=== PATIENT | female | born 1970 | race Caucasian/White ===

== ENCOUNTER 2016-05-06 00:28 | Inpatient (IN) | payer OTHER ==
[2016-05-06] VITALS (16 sets, daily range): BP systolic 130–175; BP diastolic 59–109; PULSE 94–135; RESP 20–26; TEMP 97–99; O2SAT 91–100
[~2016-05-06] VITALS: Ht 154.9 cm; Wt 64.7 kg
[~2016-05-06 00:28] MED LIST: ALBU8I INH; CHLO25 PO; CLON.1 PO; FERR325T PO; FOLI1 PO; FURO20 PO; LACT20SO4 PO; LEVE500 PO; LEVO.075 PO; OXYC5 PO; PROT40TA PO; RIFA550 PO; SERT-132 PO; SPIR25 PO; THERM PO; [UNRECOGNIZED DRUG - CODE] PO
[2016-05-06] MEDS ORDERED: OCTREOTIDE INJ 50 MCG/ML AMP IVP ONE (03:30)
[2016-05-06] MEDS ORDERED: MORPHINE SULFATE 4 MG/ML INJ IV PUSH ONE (03:30)
[2016-05-06] MEDS ORDERED: PANTOPRAZOLE INJ 80 MG in SODIUM CHLORIDE 0.9% INJ 35 ML IV ONE (03:30)
[2016-05-06] MEDS ORDERED: LORazepam 2 MG/ML VIAL IV PUSH ONE (03:30)
[2016-05-06] MEDS ORDERED: ONDANSETRON HCL 4 MG/2 ML VIAL IVP ONE (03:30)
[2016-05-06] MEDS ORDERED: SODIUM CHLORIDE 0.9% FLUSH 5 ML FLUSH IVF PRN (03:30)
[2016-05-06] MEDS ORDERED: PANTOPRAZOLE INJ 80 MG in SODIUM CHLORIDE 0.9% INJ 100 ML IV SCH (03:30)
[2016-05-06 04:03] LABS: AUTOMATED NEUTROPHIL # 6.7 TH/MM3 (1.8-7.7); BASOPHIL % 0.3 % (0.0-2.0); EOSINOPHIL % 0.1 % (0.0-4.0); HEMO FLAGS DIFF FINAL; LYMPH % 15.1 % (9.0-44.0); LYMPHOCYTE # 1.4 TH/MM3 (1.0-4.8); MEAN CELL VOLUME 94.3 FL (80.0-100.0); MEAN CORPUSCULAR HEMOGLOBIN 32.3 PG (27.0-34.0); MEAN CORPUSCULAR HGB CONC 34.3 % (32.0-36.0); NEUT % 70.5 % (16.0-70.0); PLATELET COUNT 236 TH/MM3 (150-450); RED BLOOD COUNT 3.61 MIL/MM3 (4.00-5.30); RED CELL DISTRIBUTION WIDTH 14.9 % (11.6-17.2); WHITE BLOOD COUNT 9.4 TH/MM3 (4.0-11.0)
[2016-05-06 04:13] LABS: APTT (PATIENT) 26.1 SEC (24.3-30.1); INTERNATIONAL NORMALIZED RATIO 1.2 RATIO; PROTHROMBIN TIME - PATIENT 13.3 SEC (9.8-11.6)
[2016-05-06 04:22] LABS: ALT (GPT) 40 U/L (10-53); ANION GAP 9 MEQ/L (5-15); AST (GOT) 65 U/L (15-37); BICARBONATE 27.7 MEQ/L (21.0-32.0); BLOOD UREA NITROGEN 8 MG/DL (7-18); CHLORIDE 105 MEQ/L (98-107); GLOMERULAR FILTRATION RATE 78 ML/MIN (>89); POTASSIUM 3.5 MEQ/L (3.5-5.1); SODIUM (NA) 142 MEQ/L (136-145)
[2016-05-06 04:24] LABS: ALKALINE PHOSPHATASE 237 U/L (45-117); TOTAL BILIRUBIN ADULT 1.8 MG/DL (0.2-1.0)
[2016-05-06] MEDS ORDERED: IOHEXOL 350 MG/ML 10 ML VIAL (for RAD DIAG) IV ONE (04:43)
--- NOTE | 2016-05-06 05:14 | RADRPT ---
EXAM DATE/TIME: 05/06/2016 04:40 [place] COMPARISON: CT ABDOMEN & PELVIS W/O CONTRAST, January 05, 2016, 17:51. INDICATIONS : Hematemesis IV CONTRAST: 97 cc Omnipaque 350 (iohexol) IV ORAL CONTRAST: No oral contrast ingested. RADIATION DOSE: 8.39 CTDIvol (mGy) MEDICAL HISTORY : Gastroesophageal reflux disease. Chronic obstructive pulmonary disease. Pancreatitis.Esophageal varic es. Hypertension. SURGICAL HISTORY : Tubal ligation. ENCOUNTER: Initial ACUITY: 1 day PAIN SCALE: 5/10 LOCATION: Abdomen. TECHNIQUE: Volumetric scanning of the abdomen and pelvis was performed. Using automated exposure control and ad justment of the mA and/or kV according to patient size, radiation dose was kept as low as reasonably achievable to obtain optimal diagnostic quality images. FINDINGS: LOWER LUNGS: The visualized lower lungs are clear. LIVER: Cirrhotic liver without lesion. There is no dilation of the biliary tree. Small calcified gallstone. SPLEEN: Normal size without lesion. PANCREAS: Within normal limits. KIDNEYS: Normal in size and shape. There is no mass, stone or hydronephrosis. ADRENAL GLANDS: Within normal limits. VASCULAR: There is no aortic aneurysm. BOWEL/MESENTERY: Wall thickening within the distal duodenum and proximal jejunum. There is also some mild wall thicken ing of the cecum and ascending colon. There is no free intraperitoneal air or fluid. ABDOMINAL WALL: Within normal limits. RETROPERITONEUM: There is no lymphadenopathy. BLADDER: No wall thickening or mass. REPRODUCTIVE: Within normal limits. INGUINAL: There is no lymphadenopathy or hernia. MUSCULOSKELETAL: Within normal limits for patient age. CONCLUSION: 1. Cirrhotic liver with cholelithiasis. 2. Wall thickening of distal duodenum and proximal jejunum, could be enteritis. 3. Mild nonspecific wall thickening of the cecum and ascending colon. Carlito Trejo MD on May 06, 2016 at 5:08 Board Certified Radiologist. This report was verified electronically.
[2016-05-06] MEDS ORDERED: CIPROFLOXACIN 400 MG PREMIX 200 ML IV ONE (05:30)
--- NOTE | 2016-05-06 05:36 | PD ---
HPI Chief Complaint: GI Complaint Time Seen by Provider: 03:08 Travel History International Travel<30 days: No Contact w/Intl Traveler<30days: No Traveled to known affect area: No History of Present Illness HPI Patient is a 45-year-old female with history of cirrhosis and bleeding varices, who comes in complaining of vomiting blood. She says it started earlier today. She complains of pain across her upper abdomen. She was here in January for the same thing. She denies fever or chills. She reports nausea, no diarrhea. She denies chest pain or shortness of breath. PFSH Past Medical History Hx Anticoagulant Therapy: Yes (81MG ASA DAILY) Anemia: Yes Arthritis: Yes Asthma: Yes Autoimmune Disease: No Blood Disorders: No Bipolar Disorder: Yes Anxiety: Yes Depression: No Heart Rhythm Problems: Yes (QUESTIONABLE MURMUR) Cancer: No Cardiovascular Problems: Yes High Cholesterol: No Chemotherapy: No Chest Pain: No Congestive Heart Failure: No Cirrhosis: Yes COPD: Yes Cerebrovascular Accident: No Diabetes: Yes Patient Takes Glucophage: No Diminished Hearing: No Diverticulitis: Yes Endocrine: Yes Gastrointestinal Disorders: Yes ("PROBLEMS WITH LIVER", ESOPHAGEAL VARICIES) GERD: Yes Genitourinary: No Headaches: Yes Hepatitis: Yes (A&C) Hiatal Hernia: Yes Hypertension: Yes Immune Disorder: No Implanted Vascular Access Dvce: No Kidney Stones: No Musculoskeletal: Yes Neurologic: No Psychiatric: Yes (BIPOLAR) Reproductive: No Respiratory: Yes Integumentary: Yes Immunizations Current: No Migraines: No Pancreatitis: Yes Radiation Therapy: No Renal Failure: No Seizures: Yes Sickle Cell Disease: No Sleep Apnea: No Thyroid Disease: Yes Ulcer: Yes Tetanus Vaccination: < 5 Years Influenza Vaccination: Yes ?: Not Menopausal: Yes : 4 Para: 3 : 1 Tubal Ligation: Yes Past Surgical History Abdominal Surgery: Yes (ESOPHAGEAL VARICES WITH BANDING) AICD: No Arteriovenous Shunt: No Cardiac Surgery: No Ear Surgery: No Endocrine Surgery: No Eye Surgery: No Genitourinary Surgery: No Gynecologic Surgery: Yes (CERVICAL FREEZE) Insulin Pump: No Joint Replacement: No Neurologic Surgery: No Oral Surgery: Yes (ALL TEETH REMOVED) Pacemaker: No Thoracic Surgery: No Other Surgery: Yes (ANTHROSCOPIC RIGHT ANKLE,FRACTURE RIGHT LEG,BONE GRAPH.) Social History Alcohol Use: Yes (DAILY) Tobacco Use: Yes (1/2 ppk ) Substance Use: Yes (COCAINE, METH PER HX) Allergies-Medications (Allergen,Severity, Reaction): Coded Allergies: *MDRO Multi-Drug Resistant Organism (Verified Adverse Reaction, Unknown, ) 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) Reported Meds & Prescriptions Reported Meds & Active Scripts Active Active Prescriptions or Reported Medications Unobtainable Review of Systems Except as stated in HPI: all other systems reviewed are Neg General / Constitutional: No: Fever, Chills Eyes: No: Blurred Vision HENT: Positive: Lightheadedness, No: Headaches Cardiovascular: No: Chest Pain or Discomfort Respiratory: No: Shortness of Breath Gastrointestinal: Positive: Nausea, Vomiting, Abdominal Pain, Hematemesis Skin: Positive Lesions Neurologic: Positive: Weakness, Dizziness Physical Exam Narrative GENERAL: Awake and alert in no acute distress. Tremulous, fasciculations of the tongue. SKIN: Warm and dry. Multiple scabs over most of her body. HEAD: Atraumatic. Normocephalic. EYES: Pupils equal and round. No scleral icterus. ENT: Mucous membranes pink and moist. NECK: Trachea midline. No JVD. CARDIOVASCULAR: Regular rate and rhythm. No murmur appreciated. RESPIRATORY: No accessory muscle use. Clear to auscultation. Breath sounds equal bilaterally. GASTROINTESTINAL: Abdomen soft, nondistended. Diffusely tender to palpation, worse in the upper abdomen. No rebound or guarding. MUSCULOSKELETAL: No obvious deformities. No clubbing. No cyanosis. No edema. NEUROLOGICAL: Awake and alert. No obvious cranial nerve deficits. Motor grossly within normal limits. Normal speech. PSYCHIATRIC: Appropriate mood and affect; insight and judgment normal. Data Data Last Documented VS Vital Signs Date Time Temp Pulse Resp B/P Pulse Ox O2 Delivery O2 Flow Rate FiO2 05/06/16 04:21 100 20 168/72 98 Room Air 05/06/16 00:33 98.1 Orders Complete Blood Count With Diff (05/06/16 03:18) Comprehensive Metabolic Panel (05/06/16 03:18) Lipase (05/06/16 03:18) Prothrombin Time / Inr (Pt) (05/06/16 03:18) Act Partial Throm Time (Ptt) (05/06/16 03:18) Urinalysis - C+S If Indicated (05/06/16 03:18) Ua Includes Microscopic (05/06/16 03:18) Ct Abd/Pel W Iv Contrast(Rout) (05/06/16 03:18) Iv Access Insert/Monitor (05/06/16 03:18) Ecg Monitoring (05/06/16 03:18) Oximetry (05/06/16 03:18) Morphine Inj (Morphine Inj) (05/06/16 03:30) Ondansetron Inj (Zofran Inj) (05/06/16 03:30) Sodium Chloride 0.9% Flush (Ns Flush) (05/06/16 03:30) Ed Urine Pregnancytest Poc (05/06/16 03:18) Octreotide Inj (Sandostatin Inj) (05/06/16 03:30) Pantoprazole Inj (Protonix Inj) (05/06/16 03:30) Pantoprazole Inj (Protonix Inj) (05/06/16 03:30) Alcohol (Ethanol) (05/06/16 03:18) Lorazepam Inj (Ativan Inj) (05/06/16 03:30) Type And Screen (05/06/16 03:22) Iohexol 350 Inj (Omnipaque 350 Inj) (05/06/16 04:43) Ciprofloxacin 400 Mg Premix (Cipro 400 M (05/06/16 05:30) Admit Order (Ed Use Only) (05/06/16 ) Consult Business Operations Specialist (05/06/16 ) Red Blood Cells (Rbc) (05/06/16 03:08) AGID (05/06/16 03:08) Labs Laboratory Tests Test 05/06/16 03:08 White Blood Count 9.4 TH/MM3 Red Blood Count 3.61 MIL/MM3 Hemoglobin 11.7 GM/DL Hematocrit 34.0 % Mean Corpuscular Volume 94.3 FL Mean Corpuscular Hemoglobin 32.3 PG Mean Corpuscular Hemoglobin 34.3 % Concent Red Cell Distribution Width 14.9 % Platelet Count 236 TH/MM3 Mean Platelet Volume 10.0 FL Neutrophils (%) (Auto) 70.5 % Lymphocytes (%) (Auto) 15.1 % Monocytes (%) (Auto) 14.0 % Eosinophils (%) (Auto) 0.1 % Basophils (%) (Auto) 0.3 % Neutrophils # (Auto) 6.7 TH/MM3 Lymphocytes # (Auto) 1.4 TH/MM3 Monocytes # (Auto) 1.3 TH/MM3 Eosinophils # (Auto) 0.0 TH/MM3 Basophils # (Auto) 0.0 TH/MM3 CBC Comment DIFF FINAL Differential Comment Prothrombin Time 13.3 SEC Prothromb Time International 1.2 RATIO Ratio Activated Partial 26.1 SEC Thromboplast Time Sodium Level 142 MEQ/L Potassium Level 3.5 MEQ/L Chloride Level 105 MEQ/L Carbon Dioxide Level 27.7 MEQ/L Anion Gap 9 MEQ/L Blood Urea Nitrogen 8 MG/DL Creatinine 0.79 MG/DL Estimat Glomerular Filtration 78 ML/MIN Rate Random Glucose 94 MG/DL Calcium Level 9.3 MG/DL Total Bilirubin 1.8 MG/DL Aspartate Amino Transf 65 U/L (AST/SGOT) Alanine Aminotransferase 40 U/L (ALT/SGPT) Alkaline Phosphatase 237 U/L Total Protein 9.1 GM/DL Albumin 3.2 GM/DL Lipase 147 U/L Ethyl Alcohol Level LESS THAN 3 MG/DL Blood Type O NEGATIVE Antibody Screen POSITIVE Antigen Identification K Antigen - NEGATIVE Crossmatch Leukocyte-Reduced Red Blood Cells Blood Bank Comment Antibody Identification Non-Specific Agglutinin Routine Panel Pathologist Interp [facility] Medical Decision Making Medical Screen Exam Complete: Yes Emergency Medical Condition: Yes Medical Record Reviewed: Yes Differential Diagnosis GI bleed versus bleeding very see versus pancreatitis versus cholecystitis versus colitis Narrative Course Patient is a 45-year-old female with history of cirrhosis and bleeding varices who comes in complaining of vomiting blood. Patient vomited blood twice while she was here. Exam shows tenderness to the abdomen. IV established, patient connected to the art history instructor. Labs sent. And given a dose of octreotide, Protonix, started on Protonix drip. Given Zofran. Given morphine for pain. Patient had no further episodes of vomiting after medications. Labs show hemoglobin of 11.7. Blood pressure and pulse remained stable. Patient given Ativan for possible alcohol withdrawal. Patient admitted for further management. GI, Dr. Willams consulted. Diagnosis Primary Impression: GI bleed Qualified Code: K92.0 - Gastrointestinal hemorrhage with hematemesis Additional Impressions: Abdominal pain Qualified Code: R10.84 - Generalized abdominal pain Alcohol withdrawal Qualified Code: F10.239 - Alcohol withdrawal, with unspecified complication Admitting Information Admitting Physician Requests: Admit Scripts Unable to Obtain Active Prescriptions or Reported Meds Marycarmen Junior MD May 06, 2016 05:36
[2016-05-06] MEDS: D5-1/2 NS + KCL 20 MEQ INJ 1,000 ML IV SCH ×2 (05:50→15:53)
[2016-05-06] MEDS ORDERED: LORazepam 2 MG TAB PO PRN (06:00)
[2016-05-06] MEDS ORDERED: FLUMAZENIL 0.5 MG/5 ML VIAL IV PUSH PRN (06:00)
[2016-05-06] MEDS ORDERED: MORPHINE SULFATE 4 MG/ML INJ IV PRN (06:00)
[2016-05-06] MEDS ORDERED: SODIUM CHLORIDE 0.9% FLUSH 5 ML FLUSH FLUSH PRN (06:00)
[2016-05-06] MEDS ORDERED: LORazepam 1 MG TAB PO PRN (06:00)
[2016-05-06] MEDS ORDERED: NALOXONE HCL 0.4 MG/ML AMP IV PRN (06:00)
--- NOTE | 2016-05-06 08:06 | PD.CONS ---
HPI History of Present Illness This is a 45 year old with a history of liver cirrhosis secondary to chronic hepatitis C and ongoing alcohol abuse and esophageal varices who came to the ER for evaluation of hematemesis and abdominal pain. The patient reports that she began having nausea and vomiting consisting of red blood yesterday. She also has associated diffuse abdominal pain that she describes as a constant dull ache that radiates to her back. This is not related to food. She has not found any alleviating factors. She reports that she has been having black tarry stools time to days. She has intermittent heartburn. She was taking Protonix for this at home but states she is out of it. She is not taking any ibuprofen or aleve. She has a history of liver cirrhosis secondary to chronic hepatitis C and ongoing alcohol abuse and continues to drink "a few drinks per day." She last underwent evaluation with an EGD on 02/02/16 ---> Medium esophageal varices distal esophagus, band ligation x 2 was performed of the varices. (Lori Man) PFSH Past Medical History Esophageal varices Liver cirrhosis secondary to chronic hepatitis c and ongoing ETOH abuse Seizure disorder Hypothyroidism Polysubstance abuse Past Surgical History EGD with band ligation Cryosurgery of cervix Ankle ORIF (Lori Man) Coded Allergies: *MDRO Multi-Drug Resistant Organism (Verified Adverse Reaction, Unknown, ) 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) Medications Allergies Coded Allergies Type Severity Reaction Last Updated Verified *MDRO Multi-Drug Resistant Organism Adverse Reaction Unknown 05/06/16 Yes Active Scripts Medications Dose Route/Sig Days Date Category Active Prescriptions or Reported Medications Unobtainable Rx Family History Mom had esophageal cancer, liver cancer, and pancreatic cancer. Father had liver cirrhosis (hx of ETOH abuse) Social History She smokes less than a pack of cigarettes per day States she takes a few shots of alcohol a day States she has not used any illicit drugs in 9 months (Lori Man ) Review of Systems Constitutional: COMPLAINS OF: Fatigue, DENIES: Fever, Weight loss, Chills, Change in appetite Respiratory: DENIES: Cough, Shortness of breath Cardiovascular: DENIES: Chest pain Gastrointestinal: COMPLAINS OF: Abdominal pain, Black stools, Nausea, Vomiting , Heartburn, Hematemesis, DENIES: Bloody stools, Constipation, Diarrhea Musculoskeletal: COMPLAINS OF: Back pain, DENIES: Joint pain Integumentary: COMPLAINS OF: Abnormal pigmentation, Pruritus, Rash Hematologic/lymphatic: DENIES: Bruising Neurologic: DENIES: Headache Psychiatric: DENIES: Confusion (Lori Man) GI Exam Vitals I&O Vital Signs Date Time Temp Pulse Resp B/P Pulse Ox O2 Delivery O2 Flow Rate FiO2 05/06/16 06:14 99 20 172/68 98 Room Air 05/06/16 06:09 98 21 05/06/16 04:21 100 20 168/72 98 Room Air 05/06/16 03:46 20 05/06/16 03:35 20 05/06/16 00:33 98.1 135 24 175/90 100 I/O 05/05/16 05/05/16 05/05/16 05/06/16 05/06/16 05/06/16 07:00 15:00 23:00 07:00 15:00 23:00 Intake Total 100 ml Balance 100 ml Intake IV Total 100 ml Imaging Last Impressions Abdomen/Pelvis CT 05/06/16 0318 Signed Impressions: Service Date/Time: April 04:40 - CONCLUSION: 1. Cirrhotic liver with cholelithiasis. 2. Wall thickening of distal duodenum and proximal jejunum, could be enteritis. 3. Mild nonspecific wall thickening of the cecum and ascending colon. Carlito Trejo MD Laboratory Test 05/06/16 03:08 White Blood Count 9.4 TH/MM3 Red Blood Count 3.61 MIL/MM3 Hemoglobin 11.7 GM/DL Hematocrit 34.0 % Mean Corpuscular Volume 94.3 FL Mean Corpuscular Hemoglobin 32.3 PG Mean Corpuscular Hemoglobin 34.3 % Concent Red Cell Distribution Width 14.9 % Platelet Count 236 TH/MM3 Mean Platelet Volume 10.0 FL Neutrophils (%) (Auto) 70.5 % Lymphocytes (%) (Auto) 15.1 % Monocytes (%) (Auto) 14.0 % Eosinophils (%) (Auto) 0.1 % Basophils (%) (Auto) 0.3 % Neutrophils # (Auto) 6.7 TH/MM3 Lymphocytes # (Auto) 1.4 TH/MM3 Monocytes # (Auto) 1.3 TH/MM3 Eosinophils # (Auto) 0.0 TH/MM3 Basophils # (Auto) 0.0 TH/MM3 CBC Comment DIFF FINAL Differential Comment Prothrombin Time 13.3 SEC Prothromb Time International 1.2 RATIO Ratio Activated Partial 26.1 SEC Thromboplast Time Sodium Level 142 MEQ/L Potassium Level 3.5 MEQ/L Chloride Level 105 MEQ/L Carbon Dioxide Level 27.7 MEQ/L Anion Gap 9 MEQ/L Blood Urea Nitrogen 8 MG/DL Creatinine 0.79 MG/DL Estimat Glomerular Filtration 78 ML/MIN Rate Random Glucose 94 MG/DL Calcium Level 9.3 MG/DL Total Bilirubin 1.8 MG/DL Aspartate Amino Transf 65 U/L (AST/SGOT) Alanine Aminotransferase 40 U/L (ALT/SGPT) Alkaline Phosphatase 237 U/L Total Protein 9.1 GM/DL Albumin 3.2 GM/DL Lipase 147 U/L Ethyl Alcohol Level LESS THAN 3 MG/DL Blood Type O NEGATIVE Physical Examination HEENT: Atraumatic; no jaundice. Has multiple scabs to face and extremities CHEST: Chest is clear to auscultation and percussion. CARDIAC: ST ABDOMEN: Soft, nondistended, diffuse abdominal tenderness; hepatosplenomegaly ; bowel sounds are present in all four quadrants. EXTREMITIES: No clubbing, cyanosis, or edema. SKIN: Multiple scabs to face and all extremities HR RECRUITER: No focal deficits; alert and oriented times three- picking at the air ( Lori Man) Assessment and Plan Plan ASSESSMENT: - Upper GI bleeding with hematemesis/melena. Patient reports she is vomiting red blood and passing black tarry stool. She has a history of liver cirrhosis And GI bleeding. She continues to drink alcohol. EGD on 02/02/16 ---> Medium esophageal varices distal esophagus, band ligation x 2 was performed of the varices. She is on an octreotide drip, Protonix drip. She is not currently having any active bleeding. Her H&H at this time is stable at 11.7/ 34.0 Will plan for an EGD today - N/V, abdominal pain. CT scan abdomen and pelvis with IV contrast (05/06/16) revealed cirrhotic liver with cholelithiasis, wall thickening of the distal duodenum and proximal jejunum, could be enteritis, mild nonspecific wall thickening of the cecum and ascending colon. - Abnormal imaging with wall thickening of the distal duodenum and proximal jejunum and wall thickening of cecum and ascending colon. EGD/Colon in am. - AMS, Hepatic encephalopathy. She is alert and oriented although she is speaking at invisible objects. Will check ammonia level - Liver cirrhosis secondary to chronic hepatitis C and ongoing alcohol abuse. Dx 3 years ago. Still drinks 2 shots per day. - Elevated LFTs secondary to cirrhosis and ETOH use. T. Bili 1.8, AST 65, ALT 40 , ALk Phosph 237. - HCV, chronic. Tx naive. Not a candidate for tx until she has been off ETOH abuse x 6 months. PLAN: - Plan for egd with possible band ligation/colonoscopy in am - Clear liquids - Obtain consents - Golytely prep - NPO after MN - Continue octreotide drip for now - Continue Protonix drip from now - Albumin level - Add Xifaxan - Add Lactulose - Supportive care - Further recommendations to follow based on results of above - Pt seen and examined by Dr. Willams and myself and this note is written on his behalf (Lori Man) Physician Comments Patient was seen and examined Agree with above Continue with current supportive care Monitor labs Plan for an EGD and a colonoscopy tomorrow (Sami Willams MD) Lori Man May 06, 2016 08:06 Sami Willams MD May 06, 2016 19:09
[2016-05-06] MEDS: OCTREOTIDE INJ 500 MCG in SODIUM CHLORID 0.9% 500 ML INJ 499.5 ML IV SCH (08:53)
[2016-05-06] MEDS: SODIUM CHLORIDE 0.9% FLUSH 5 ML FLUSH FLUSH SCH ×2 (08:55→19:45)
[2016-05-06] MEDS ORDERED: ONDANSETRON HCL 4 MG/2 ML VIAL IVP PRN (09:00)
[2016-05-06] MEDS: LACTULOSE SYRUP 20 GM/30 ML CUP PO SCH (09:30)
[2016-05-06] MEDS: LORazepam 2 MG/ML VIAL IV PUSH PRN (09:47)
[2016-05-06] MEDS ORDERED: CHLORHEXIDINE GLUCONATE 2 % 1 PACK (2 CLOTHS)(extra cloths) TOP PRN (12:30)
[2016-05-06] MEDS: cloNIDine HCL 0.1 MG TAB PO PRN ×2 (13:10→21:18)
[2016-05-06 13:46] LABS: HEMATOCRIT 31.5 % (35.0-46.0)
[2016-05-06 13:48] LABS: REVIEW FLAG FINAL
--- NOTE | 2016-05-06 14:20 | MH ---
cc: DHAVAL MCKEON MD DATE OF ADMISSION 05/06/2016 CHIEF COMPLAINT Abdominal pain HISTORY OF PRESENT ILLNESS This is a 45-year-old female with a past medical and surgical history significant for anemia, arthritis, asthma, chronic liver disease, massive ascites, end-stage renal disease, anxiety, history of diverticulitis in the past, cirrhosis of the liver, esophageal varices, portal hypertension, history of hepatitis, hiatal hernia, hypertension, bipolar disorder, pancreatitis, hypothyroidism, history of esophageal varices with banding in the past, cervical freeze, all teeth removed, right ankle surgery, right leg bone graft. He came to the ER at [facility] complaining of bloody vomiting that started this morning and also complaining of pain in the upper abdomen. The bloody vomiting has resolved and he denies any nausea at the time of examination. His abdominal pain is 4-5/10 diffuse no radiation. Denies any chest pain. Denies any shortness of breath, but the patient has a history of cirrhosis of the liver and she keeps drinking and she had vodka yesterday. Other than that, nothing significant. PAST MEDICAL AND SURGICAL HISTORY As dictated above. SOCIAL HISTORY She drinks on a daily basis. The patient advised multiple times to stop drinking, otherwise she will end up dying and she is well aware of the situation, but she keeps drinking. Also, she smokes a half pack a day and also abuses cocaine, meth. FAMILY HISTORY Nothing significant. ALLERGIES NO KNOWN DRUG ALLERGIES. MEDICATIONS The patient is currently on: 1. Rifaximine 550 twice a day 2. Lactulose 30 mL daily 3. Lorazepam 1 mg p.o. every four hours REVIEW OF SYSTEMS Positive for abdominal pain, all other review of systems are negative. PHYSICAL EXAMINATION This is a 45-year-old female laying on the bed not in acute distress. VITAL SIGNS: Temperature 99.0, heart rate 99, respiration 24, blood pressure 163/96, O2 saturation 98% room air. HEENT: Normocephalic, atraumatic, EOMI. PERRL. Oral mucosa moist. NECK: Supple. No visible thyromegaly or neck mass. Trachea is central. CVS: Regular rate and rhythm. Respirations are clear to auscultation bilaterally. ABDOMEN: Distended, tender, bowel sounds audible. Ascites present. EXTREMITIES: No cyanosis or clubbing. SKIN: Multiple wounds on the skin. PSYCH: The patient is cooperative. LABORATORY DATA Include CBC totally unremarkable except for RBC count 3.61 low, hematocrit 34.0 low, neutrophils 70.5 high, mono is 14.0 high. BMP totally unremarkable except for GFR 78 low, total bilirubin 1.8 high, AST 65 high, alkaline phosphatase 237 high, ammonia 51 high, total protein 9.1 high, albumin 3.2 low, lipase 147. PT 13.3, INR 1.2, APTT 26.1. Ethyl alcohol level less than 3. CT of the abdomen and pelvis was done and shows cirrhotic liver with cholelithiasis, wall thickening of the distal duodenum and proximal jejunum could be enteritis. Mild nonspecific wall thickening of the cecum and ascending colon. ASSESSMENT/PLAN 1. This is a 45-year female who came to the ER diagnosed with hematemesis secondary to portal hypertension and alcohol liver disease. The patient also had black tarry stools. The patient had a history of end-stage liver disease with liver cirrhosis. The patient had an EEG done on 02/02/2016 and had a medium esophageal varices in the distal esophagus and band ligation x2 was performed at that time. The patient is currently on a drip and also Protonix drip. She is admitted to the ICU. Currently not bleeding. Hemoglobin is stable. GI is on the case, plan to do an EGD. 2. Nausea and vomiting. The patient is on Zofran. 3. Abdominal pain secondary to distended ascites. There is also antritis with nonspecific thickening of the cecum and ascending colon. 4. encephalopathy, ammonia level was high. The patient is on lactulose. 5. Cirrhosis of liver secondary to chronic , chronic liver disease. She is still drinking. Advised to stop drinking. 6. Heavy alcohol abuse. The patient is on protocol. The patient was to quit. 7. History of chronic hepatitis C. Treatment, not a candidate for treatment until she has been off alcohol abuse for 6-months. 8. DVT prophylaxis SCD's. 9. GI prophylaxis. The patient is on Protonix drip. 10. Anemia secondary to acute blood loss anemia secondary to hematemesis. We are going to manage the patient on a daily basis and make recommendations on a daily basis. Dhaval Mckeon MD EA/IVAN /12:44 PM /2:17 PM
[2016-05-06] MEDS ORDERED: PEG (High)/E-LYTE SOLN 4000 ML BTL PO ONE (16:00)
[2016-05-06] MEDS: MORPHINE SULFATE 4 MG/ML INJ IV PRN ×2 (16:11→19:47)
[2016-05-06] MEDS: PANTOPRAZOLE INJ 80 MG in SODIUM CHLORIDE 0.9% INJ 100 ML IV SCH (16:29)
[2016-05-06 19:20] LABS: HEMATOCRIT 31.3 % (35.0-46.0); REVIEW FLAG FINAL
[2016-05-06] MEDS: METOPROLOL TARTRATE 25 MG TAB PO SCH (19:45)
[2016-05-06] MEDS: RIFAXIMIN 550 MG TAB PO SCH (19:45)
[2016-05-06 20:16] LABS: BLOOD, URINE NEG (NEG); COMMENT (UR) CULT NOT INDICATED; CULTURE IF INDICATED CULT NOT INDICATED; GLUCOSE,URINE NEG (NEG); KETONE, URINE NEG (NEG); NITRITE,URINE NEG (NEG); SQUAMOUS EPITHELIAL CELL URINE 5 /hpf (0-5); URINE COLOR YELLOW (YELLW/STRAW)
[2016-05-07] VITALS (14 sets, daily range): BP systolic 105–168; BP diastolic 63–104; PULSE 84–96; RESP 19–30; TEMP 98–99.7; O2SAT 93–96
[2016-05-07 00:56] LABS: REVIEW FLAG FINAL
[2016-05-07] MEDS: LORazepam 2 MG/ML VIAL IV PUSH PRN ×9 (01:00→22:19)
[2016-05-07] MEDS: D5-1/2 NS + KCL 20 MEQ INJ 1,000 ML IV SCH ×3 (01:00→20:24)
[2016-05-07] MEDS: PANTOPRAZOLE INJ 80 MG in SODIUM CHLORIDE 0.9% INJ 100 ML IV SCH ×3 (02:30→20:24)
[2016-05-07] MEDS: CHLORHEXIDINE GLUCONATE 2 % 1 PACK (2 CLOTHS)(taper/protocol) TOP SCH (02:31)
[2016-05-07] MEDS: OCTREOTIDE INJ 500 MCG in SODIUM CHLORID 0.9% 500 ML INJ 499.5 ML IV SCH (02:31)
[2016-05-07 06:15] LABS: AUTOMATED NEUTROPHIL # 5.2 TH/MM3 (1.8-7.7); BASOPHIL # 0.1 TH/MM3 (0-0.2); BASOPHIL % 0.7 % (0.0-2.0); EOSINOPHIL # 0.1 TH/MM3 (0-0.4); EOSINOPHIL % 1.3 % (0.0-4.0); HEMATOCRIT 30.7 % (35.0-46.0); HEMO FLAGS DIFF FINAL; LYMPH % 17.4 % (9.0-44.0); LYMPHOCYTE # 1.3 TH/MM3 (1.0-4.8); MEAN CELL VOLUME 94.4 FL (80.0-100.0); MEAN CORPUSCULAR HEMOGLOBIN 31.6 PG (27.0-34.0); MEAN CORPUSCULAR HGB CONC 33.4 % (32.0-36.0); MONO % 9.9 % (0.0-8.0); NEUT % 70.7 % (16.0-70.0); PLATELET COUNT 187 TH/MM3 (150-450); RED BLOOD COUNT 3.25 MIL/MM3 (4.00-5.30); WHITE BLOOD COUNT 7.4 TH/MM3 (4.0-11.0)
[2016-05-07 06:47] LABS: ALKALINE PHOSPHATASE 192 U/L (45-117); ALT (GPT) 42 U/L (10-53); ANION GAP 5 MEQ/L (5-15); AST (GOT) 77 U/L (15-37); BICARBONATE 31.2 MEQ/L (21.0-32.0); BLOOD UREA NITROGEN 3 MG/DL (7-18); CHLORIDE 107 MEQ/L (98-107); GLOMERULAR FILTRATION RATE 111 ML/MIN (>89); POTASSIUM 3.7 MEQ/L (3.5-5.1); SODIUM (NA) 143 MEQ/L (136-145)
[2016-05-07] MEDS: RIFAXIMIN 550 MG TAB PO SCH ×2 (09:28→20:23)
[2016-05-07] MEDS: LACTULOSE SYRUP 20 GM/30 ML CUP PO SCH (09:28)
[2016-05-07] MEDS: SODIUM CHLORIDE 0.9% FLUSH 5 ML FLUSH FLUSH SCH ×2 (09:28→20:23)
[2016-05-07] MEDS: METOPROLOL TARTRATE 25 MG TAB PO SCH ×2 (09:28→20:23)
--- NOTE | 2016-05-07 09:44 | MB ---
cc: PEDRO SALAS M.D. DATE OF CONSULTATION: 05/07/2016 REASON FOR CONSULTATION Tachycardia. HISTORY OF PRESENT ILLNESS History is difficult to elicit from the patient. She is fairly confused and somnolent. She is a 45-year-old white female with a history of liver cirrhosis due to chronic hepatitis C and alcohol abuse, history of esophageal varices, seizure disorder, hypothyroidism, who was brought to the hospital yesterday due to hematemesis and melena. Yesterday she developed heart rates as high as 140. The patient does state she experiences occasional racing palpitations without lightheadedness, syncope or near-syncope. She denies angina, shortness of breath, pedal edema, paroxysmal nocturnal dyspnea, fevers. The patient reports very poor oral intake recently. She continues to abuse alcohol. PAST MEDICAL HISTORY 1. Liver cirrhosis due to chronic hepatitis C and alcohol abuse. 2. Esophageal varices with history of banding. 3. Seizure disorder. 4. Hypothyroidism. MEDICATIONS Her current cardiac medication is metoprolol 25 mg p.o. b.i.d. ALLERGIES No known drug allergies. FAMILY HISTORY Noncontributory. SOCIAL HISTORY The patient continues to drink alcohol and she smokes about half a pack of cigarettes per day. Reportedly there is also a history of cocaine abuse. REVIEW OF SYSTEMS As in the history of present illness otherwise very difficult to elicit or noncontributory. She also currently denies headache and abdominal pain. PHYSICAL EXAMINATION VITAL SIGNS: On physical examination her blood pressure is 105/63 with a pulse of 86, respirations 15. GENERAL: She is a well-developed, well-nourished white female in no acute distress. HEENT/NECK: Jugular venous pressure is normal. Carotid pulses are 2+ bilaterally and without bruits. CHEST: Examination of the chest reveals clear lung nixon. CARDIAC: On cardiac examination she has a regular rhythm and rate without definite S3, S4 or murmur. ABDOMEN: On abdominal examination she has a soft abdomen. Bowel sounds are present. There is no definite hepatosplenomegaly. EXTREMITIES: Examination of the extremities reveals no clubbing, cyanosis or edema. LABORATORY DATA Laboratory data includes WBC 7.4, hemoglobin 10.3, platelets 187, potassium 3.7, BUN 3, creatinine 0.58, AST 77, ALT 42, INR 1.2. EKG DATA EKG from 05/06/2016 shows sinus tachycardia, right ventricular conduction delay. IMPRESSION Transiently elevated heart rates due to sinus tachycardia in this 45-year-old white female with a history of liver cirrhosis, chronic hepatitis C, alcohol abuse, esophageal varices, seizure disorder, now admitted with GI bleeding. Her heart rates are now normal. I suspect the elevated heart rates were due to hypovolemia as a result of blood loss, poor oral intake, as well as some agitation, possible alcohol withdrawal. She has no other signs or symptoms of congestive heart failure or an underlying cardiomyopathy. RECOMMENDATIONS 1. Check a 2-D echo to assess her left ventricular function. 2. Overall would recommend stopping metoprolol if the echo is normal. 3. Intravenous fluid hydration. 4. Will follow-up as needed. Pedro Salas MD [facility]/RY /9:21 AM /9:37 AM RONNIE
--- NOTE | 2016-05-07 13:09 | HHI.PR ---
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 Review of Systems Constitutional Constitutional: Fatigue, Weakness GI/Abdomen GI/Abdomen Remarks Abdominal distension/ Ascities. Psychiatric Psychiatric: Agitation, Anxiety Vitals/Results Intake & Output 05/06/16 05/06/16 05/07/16 15:00 23:00 07:00 Intake Total 1703 ml 715 ml 905 ml Output Total 400 ml 1300 ml Balance 1703 ml 315 ml -395 ml Intake Oral 300 ml IV Total 1403 ml 715 ml 905 ml Output Urine Total 400 ml 200 ml Stool Total 1100 ml # Bowel Movements 1 Vital Signs Vital Signs Date Time Temp Pulse Resp B/P Pulse Ox O2 Delivery O2 Flow Rate FiO2 05/07/16 10:00 84 05/07/16 08:30 86 05/07/16 08:14 93 Nasal Cannula 3.00 05/07/16 08:00 99.0 93 22 159/92 96 05/07/16 07:00 95 Nasal Cannula 3.00 05/07/16 06:00 92 05/07/16 04:00 93 05/07/16 04:00 98.2 93 27 105/63 95 05/07/16 02:00 86 05/07/16 00:00 98.0 95 19 130/98 95 05/07/16 00:00 95 05/06/16 22:00 99 05/06/16 21:30 96 Nasal Cannula 3.00 05/06/16 20:00 126 05/06/16 20:00 96 Nasal Cannula 3.00 05/06/16 20:00 98.2 126 20 161/109 96 05/06/16 18:00 120 05/06/16 17:56 97.0 94 22 130/59 92 05/06/16 16:00 120 05/06/16 14:00 120 05/06/16 13:56 98.0 98 26 133/72 94 CBC/BMP: 05/07/16 0515 05/07/16 0515 Lab Results Laboratory Tests Test 05/06/16 05/06/16 05/06/16 05/07/16 13:13 18:40 19:00 00:46 Hemoglobin 10.8 GM/DL 10.6 GM/DL 10.4 GM/DL Hematocrit 31.5 % 31.3 % 31.0 % Urine Color YELLOW Urine Turbidity CLEAR Urine pH 7.0 Urine Specific [place] 1.045 Urine Protein NEG mg/dL Urine Glucose (UA) NEG mg/dL Urine Ketones NEG mg/dL Urine Occult Blood NEG Urine Nitrite NEG Urine Bilirubin NEG Urine Urobilinogen LESS THAN 2.0 MG/DL Urine Leukocyte Esterase NEG Urine RBC LESS THAN 1 /hpf Urine WBC LESS THAN 1 /hpf Urine Squamous Epithelial 5 /hpf Cells Microscopic Urinalysis Comment CULT NOT INDICATED Test 05/07/16 05:15 White Blood Count 7.4 TH/MM3 Red Blood Count 3.25 MIL/MM3 Hemoglobin 10.3 GM/DL Hematocrit 30.7 % Mean Corpuscular Volume 94.4 FL Mean Corpuscular Hemoglobin 31.6 PG Mean Corpuscular Hemoglobin 33.4 % Concent Red Cell Distribution Width 15.0 % Platelet Count 187 TH/MM3 Mean Platelet Volume 9.3 FL Neutrophils (%) (Auto) 70.7 % Lymphocytes (%) (Auto) 17.4 % Monocytes (%) (Auto) 9.9 % Eosinophils (%) (Auto) 1.3 % Basophils (%) (Auto) 0.7 % Neutrophils # (Auto) 5.2 TH/MM3 Lymphocytes # (Auto) 1.3 TH/MM3 Monocytes # (Auto) 0.7 TH/MM3 Eosinophils # (Auto) 0.1 TH/MM3 Basophils # (Auto) 0.1 TH/MM3 CBC Comment DIFF FINAL Differential Comment Sodium Level 143 MEQ/L Potassium Level 3.7 MEQ/L Chloride Level 107 MEQ/L Carbon Dioxide Level 31.2 MEQ/L Anion Gap 5 MEQ/L Blood Urea Nitrogen 3 MG/DL Creatinine 0.58 MG/DL Estimat Glomerular Filtration 111 ML/MIN Rate Random Glucose 111 MG/DL Calcium Level 7.8 MG/DL Total Bilirubin 1.0 MG/DL Aspartate Amino Transf 77 U/L (AST/SGOT) Alanine Aminotransferase 42 U/L (ALT/SGPT) Alkaline Phosphatase 192 U/L Total Protein 8.1 GM/DL Albumin 2.8 GM/DL Physical Exam General General Appearance: No Acute Distress, Comfortable Eyes Eye Exam: Pupils Equal, Pupils Reactive, Sclera White, Extraocular Movement Intact Throat Throat Exam: Oral Mucosa Amberg & Moist, Oral Pharynx Normal Neck Neck Exam: Neck Supple, Trachea Midline Pulmonary Resp Exam: Clear Bilaterally, Breath Sounds Equal Cardiology CV Exam: Regular, Normal Sinus Rhythm Gastrointestinal/Abdomen GI Exam: Soft GI Remarks Abdominal distension/ Ascities. mild diffuse abdominal tenderness, Musculoskeletal MS Exam: Joints Intact, Normal Tone Integumentary Skin Exam: Warm, Dry Skin Remarks Multiple wound on all over body. Extremeties Extremities Exam: No Edema Neurologic Neuro Exam: Alert, Awake, Oriented, Speech Clear, Moving All Extremities, No Focal Deficits Psychiatric Psych Exam: Appropriate Responses PUD Prophylasis PUD Prophylaxis: Protonix Assessment/Plan Assessment/Plan ASSESSMENT/PLAN 1. This is a 45-year female who came to the ER diagnosed with hematemesis secondary to portal hypertension and alcohol liver disease. The patient also had black tarry stools. The patient had a history of end-stage liver disease with liver cirrhosis. The patient had an EEG done on 02/02/2016 and had a medium esophageal varices in the distal esophagus and band ligation x2 was performed at that time. The patient is currently on a octrotide drip and also Protonix drip. Currently not bleeding. Hemoglobin is stable. GI is on the case, S/Po an EGD and colonoscopy within normal limits.. 2. Nausea and vomiting. The patient is on Zofran. 3. Abdominal pain secondary to distended ascites. There is also antritis with nonspecific thickening of the cecum and ascending colon. 4. Hepatic encephalopathy, ammonia level was high. The patient is on lactulose. 5. 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 She is still drinking. Advised to stop drinking. 6. Heavy alcohol abuse. The patient is on DT Prophylaxis. 7. History of chronic hepatitis C. Treatment, not a candidate for treatment until she has been off alcohol abuse for 6-months. 8. DVT prophylaxis SCD's. 9. GI prophylaxis. The patient is on Protonix drip. 10. Anemia secondary to acute blood loss anemia secondary to hematemesis. We are going to manage the patient on a daily basis and make recommendations on a daily basis. Discussed Condition with: Patient, Spouse Dhaval Conley MD May 07, 2016 13:09
[2016-05-07 14:08] LABS: BLOOD GAS BASE EXCESS 2.8 mmol/L (-2-2); BLOOD GAS HCO3 27 mmol/L (22-26); BLOOD GAS O2 HGB SATURATION 96 % (90-100); BLOOD GAS OXYGEN CONTENT 12.7 Vol % (12.0-20.0); BLOOD GAS PCO2 42 mmHg (38-42); BLOOD GAS PO2 106 mmHg (61-120); BLOOD GAS TOTAL HGB 9.3 G/DL (12.0-16.0); TEMP CORR TO 98.6
[2016-05-07 14:09] LABS: CRITICAL VALUE NO; LITER FLOW 3 L/M; OXYGEN DEVICE NASAL CANNULA; ULNAR PULSE PRESENT
[2016-05-07 14:10] LABS: STAT YES
[2016-05-07] MEDS ORDERED: ONDANSETRON HCL 4 MG/2 ML VIAL IV PUSH ONE (15:06)
[2016-05-07] MEDS ORDERED: PROPOFOL 200 MG/20 ML AMP IV PUSH ONE (15:06)
[2016-05-07] MEDS ORDERED: DO NOT ADM ANY ANTICOAGULANT DRUGS XX PRN (15:45)
--- NOTE | 2016-05-07 16:54 | PD.PROCEDR ---
GI Procedure REFERRING PHYSICIAN Dr. Conley PROCEDURE PERFORMED EGD followed by a colonoscopy INDICATION FOR PROCEDURE GI bleed and abnormal findings on CT suggestive of thickening in the duodenum and the cecum and ascending colon PROCEDURE: The procedure, risks and benefits were discussed with Ms. Murray and informed consent was obtained. Anesthesia sedated her with Diprivan. She was placed in the left lateral decubitus position. EGD: The Pentax videoscope was introduced through the oropharynx and advanced to the second portion of the duodenum under direct visualization. Retroflexion was performed in the stomach. FINDINGS: The esophagus this was normal The stomach this was normal The duodenum this was normal Colonoscopy: The Pentax videoscope was introduced through the rectum and advanced to cecum where the ileocecal valve and appendiceal orifice were identified. Retroflexion was performed in the rectum. Colonic prep was good FINDINGS: Colonic withdrawal time greater than 6 minutes as the scope was slowly withdrawn colonic mucosa was carefully inspected this was noted to be unremarkable and within normal limits the whole way through so was retroflexion and so was rectal examination ESTIMATED BLOOD LOSS: None SPECIMENS REMOVED: None COMPLICATIONS: None IMPRESSION: Normal EGD Normal colonoscopy PLAN: Supportive care Monitor labs Sami Willams MD May 07, 2016 16:54
[2016-05-07] MEDS: chlordiazePOXIDE 25 MG CAP PO SCH (17:14)
[2016-05-07] MEDS: THIAMINE HCL 100 MG TAB PO SCH (17:14)
[2016-05-07] MEDS: FOLIC ACID 1 MG TAB PO SCH (17:14)
--- NOTE | 2016-05-07 18:22 | EKG ---
Date Performed: 05/06/2016 Time Performed: 16:25:16 PTAGE: 45 years EKG: SINUS TACHYCARDIA POSSIBLE RIGHT VENTRICULAR CONDUCTION DELAY NONSPECIFIC ST & T-WAVE ABNOR MALITY ABNORMAL RHYTHM ECG PREVIOUS TRACING : 02/08/2016 17.06 Since previous tracing, no significant change noted DOCTOR: Thalia Mckeon Interpretating Date/Time 05/07/2016 18:21:54
[2016-05-07] MEDS: MORPHINE SULFATE 4 MG/ML INJ IV PRN (20:25)
[2016-05-08] VITALS (13 sets, daily range): BP systolic 115–161; BP diastolic 65–98; PULSE 74–101; RESP 11–33; TEMP 98.2–99; O2SAT 93–97
[2016-05-08] MEDS: LORazepam 2 MG/ML VIAL IV PUSH PRN ×9 (01:04→23:43)
[2016-05-08] MEDS: MORPHINE SULFATE 4 MG/ML INJ IV PRN ×5 (01:05→21:36)
[2016-05-08] MEDS: CHLORHEXIDINE GLUCONATE 2 % 1 PACK (2 CLOTHS)(taper/protocol) TOP SCH (01:06)
[2016-05-08] MEDS: OCTREOTIDE INJ 500 MCG in SODIUM CHLORID 0.9% 500 ML INJ 499.5 ML IV SCH (01:06)
[2016-05-08] MEDS: D5-1/2 NS + KCL 20 MEQ INJ 1,000 ML IV SCH ×2 (05:50→12:39)
[2016-05-08 07:48] LABS: HEMATOCRIT 27.3 % (35.0-46.0); MEAN CELL VOLUME 93.3 FL (80.0-100.0); MEAN CORPUSCULAR HEMOGLOBIN 31.6 PG (27.0-34.0); MEAN CORPUSCULAR HGB CONC 33.9 % (32.0-36.0); PLATELET COUNT 172 TH/MM3 (150-450); RED BLOOD COUNT 2.93 MIL/MM3 (4.00-5.30); RED CELL DISTRIBUTION WIDTH 14.6 % (11.6-17.2); REVIEW FLAG FINAL; WHITE BLOOD COUNT 5.8 TH/MM3 (4.0-11.0)
[2016-05-08] MEDS: THIAMINE HCL 100 MG TAB PO SCH (08:14)
[2016-05-08] MEDS: LACTULOSE SYRUP 20 GM/30 ML CUP PO SCH (08:14)
[2016-05-08] MEDS: chlordiazePOXIDE 25 MG CAP PO SCH ×3 (08:15→17:10)
[2016-05-08] MEDS: PANTOPRAZOLE INJ 80 MG in SODIUM CHLORIDE 0.9% INJ 100 ML IV SCH ×2 (08:15→15:34)
[2016-05-08] MEDS: RIFAXIMIN 550 MG TAB PO SCH ×2 (08:15→20:55)
[2016-05-08] MEDS: METOPROLOL TARTRATE 25 MG TAB PO SCH ×2 (08:15→20:55)
[2016-05-08] MEDS: FOLIC ACID 1 MG TAB PO SCH (08:15)
[2016-05-08] MEDS: SODIUM CHLORIDE 0.9% FLUSH 5 ML FLUSH FLUSH SCH ×2 (08:15→17:10)
--- NOTE | 2016-05-08 11:00 | HHI.PR ---
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 Review of Systems Constitutional Constitutional: Fatigue, Weakness GI/Abdomen GI/Abdomen Remarks Abdominal distension/ Ascities. Psychiatric Psychiatric: Agitation, Anxiety Vitals/Results Intake & Output 05/07/16 05/07/16 05/08/16 15:00 23:00 07:00 Intake Total 850 ml 742 ml 919 ml Output Total 2 ml 2350 ml 1300 ml Balance 848 ml -1608 ml -381 ml Intake Oral 0 ml 120 ml IV Total 850 ml 222 ml 919 ml Other 400 ml Output Urine Total 2350 ml 1300 ml Stool Total 2 ml Vital Signs Vital Signs Date Time Temp Pulse Resp B/P Pulse Ox O2 Delivery O2 Flow Rate FiO2 05/08/16 08:00 79 05/08/16 07:57 Nasal Cannula 2.00 05/08/16 07:42 20 05/08/16 07:41 97 Nasal Cannula 2.00 05/08/16 06:00 80 05/08/16 04:00 98.9 97 33 134/98 94 05/08/16 04:00 97 05/08/16 02:00 87 05/08/16 00:00 101 05/08/16 00:00 99.0 101 31 126/82 97 05/07/16 22:00 95 05/07/16 20:41 95 05/07/16 20:00 96 05/07/16 20:00 99.7 96 30 156/77 96 05/07/16 19:00 94 Nasal Cannula 2.00 05/07/16 18:00 95 05/07/16 17:00 98.2 95 26 135/77 94 05/07/16 16:15 98.7 98 14 153/89 96 Nasal Cannula 4 05/07/16 16:00 104 14 157/93 95 Nasal Cannula 4 05/07/16 15:44 98.7 102 14 136/87 93 Nasal Cannula 4 05/07/16 12:00 98.7 94 22 168/104 95 05/07/16 12:00 84 CBC/BMP: 05/08/16 0605 05/07/16 0515 Lab Results Laboratory Tests Test 05/07/16 05/08/16 13:50 06:05 Blood Gas Puncture Site DRAWN IN OR Blood Gas Patient Temperature 98.6 Blood Gas HCO3 27 mmol/L Blood Gas Base Excess 2.8 mmol/L Blood Gas Oxygen Saturation 96 % Arterial Blood pH 7.42 Arterial Blood Partial 42 mmHg Pressure CO2 Arterial Blood Partial 106 mmHg Pressure O2 Arterial Blood Oxygen Content 12.7 Vol % Arterial Blood 2.0 % Carboxyhemoglobin Arterial Blood Methemoglobin 1.0 % Blood Gas Hemoglobin 9.3 G/DL Oxygen Delivery Device NASAL CANNULA Blood Gas Liter Flow 3 L/M White Blood Count 5.8 TH/MM3 Red Blood Count 2.93 MIL/MM3 Hemoglobin 9.3 GM/DL Hematocrit 27.3 % Mean Corpuscular Volume 93.3 FL Mean Corpuscular Hemoglobin 31.6 PG Mean Corpuscular Hemoglobin 33.9 % Concent Red Cell Distribution Width 14.6 % Platelet Count 172 TH/MM3 Mean Platelet Volume 9.3 FL Physical Exam General General Appearance: No Acute Distress, Comfortable Eyes Eye Exam: Pupils Equal, Pupils Reactive, Sclera White, Extraocular Movement Intact Throat Throat Exam: Oral Mucosa Goodrich & Moist, Oral Pharynx Normal Neck Neck Exam: Neck Supple, Trachea Midline Pulmonary Resp Exam: Clear Bilaterally, Breath Sounds Equal Cardiology CV Exam: Regular, Normal Sinus Rhythm Gastrointestinal/Abdomen GI Exam: Soft GI Remarks Abdominal distension/ Ascities. mild diffuse abdominal tenderness, Musculoskeletal MS Exam: Joints Intact, Normal Tone Integumentary Skin Exam: Warm, Dry Skin Remarks Multiple wound on all over body. Extremeties Extremities Exam: No Edema Neurologic Neuro Exam: Alert, Awake, Oriented, Speech Clear, Moving All Extremities, No Focal Deficits Psychiatric Psych Exam: Appropriate Responses VTE Prophylaxis VTE Prophylaxis Device: SCDs PUD Prophylasis PUD Prophylaxis: Protonix Assessment/Plan Assessment/Plan ASSESSMENT/PLAN 1. This is a 45-year female who came to the ER diagnosed with hematemesis secondary to portal hypertension and alcohol liver disease. The patient also had black tarry stools. The patient had a history of end-stage liver disease with liver cirrhosis. The patient had an EEG done on 02/02/2016 and had esophageal varices in the distal esophagus and band ligation x 2 was performed at that time. The patient is currently on a octrotide drip and also Protonix drip. Currently not bleeding. Hemoglobin is stable. GI is on the case, S/P an EGD and colonoscopy within normal limits.. 2. Nausea and vomiting. The patient is on Zofran. 3. Abdominal pain secondary to distended ascites. There is also antritis with nonspecific thickening of the cecum and ascending colon. 4. Hepatic encephalopathy, ammonia level was high. The patient is on lactulose. 5. 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 She is still drinking. Advised to stop drinking. 6. Heavy alcohol abuse. The patient is on DT Prophylaxis. 7. History of chronic hepatitis C. Treatment, not a candidate for treatment until she has been off alcohol abuse for 6-months. 8. DVT prophylaxis SCD's. 9. GI prophylaxis. The patient is on Protonix drip. 10. Anemia secondary to acute blood loss anemia secondary to hematemesis. We are going to manage the patient on a daily basis and make recommendations on a daily basis. Discussed Condition with: Patient Dhaval Conley MD May 08, 2016 11:00
--- NOTE | 2016-05-08 16:15 | HHI.GIFU ---
Subjective Remarks Patient is resting in bed, lethargic, in 2 point restraints, tolerating diet okay, no bleeding, no hematemesis or hematochezia (Barbara Godwin) Objective Vitals I&O Vital Signs Date Time Temp Pulse Resp B/P Pulse Ox O2 Delivery O2 Flow Rate FiO2 05/08/16 16:00 79 05/08/16 14:00 79 05/08/16 12:00 98.4 11 115/70 93 05/08/16 12:00 79 05/08/16 10:00 79 05/08/16 08:00 79 05/08/16 08:00 99.0 80 14 118/65 94 05/08/16 07:57 Nasal Cannula 2.00 05/08/16 07:42 20 05/08/16 07:41 97 Nasal Cannula 2.00 05/08/16 06:00 80 05/08/16 04:00 98.9 97 33 134/98 94 05/08/16 04:00 97 05/08/16 02:00 87 05/08/16 00:00 101 05/08/16 00:00 99.0 101 31 126/82 97 05/07/16 22:00 95 05/07/16 20:41 95 05/07/16 20:00 96 05/07/16 20:00 99.7 96 30 156/77 96 05/07/16 19:00 94 Nasal Cannula 2.00 05/07/16 18:00 95 05/07/16 17:00 98.2 95 26 135/77 94 05/07/16 16:15 98.7 98 14 153/89 96 Nasal Cannula 4 I/O 05/07/16 05/07/16 05/07/16 05/08/16 05/08/16 05/08/16 07:00 15:00 23:00 07:00 15:00 23:00 Intake Total 905 ml 850 ml 742 ml 919 ml 1512 ml Output Total 1300 ml 2 ml 2350 ml 1300 ml 1100 ml Balance -395 ml 848 ml -1608 ml -381 ml 412 ml Intake Oral 0 ml 120 ml 270 ml IV Total 905 ml 850 ml 222 ml 919 ml 1242 ml Other 400 ml Output Urine Total 200 ml 2350 ml 1300 ml 1100 ml Stool Total 1100 ml 2 ml 0 ml Laboratory Laboratory Tests Test 05/08/16 06:05 White Blood Count 5.8 Red Blood Count 2.93 Hemoglobin 9.3 Hematocrit 27.3 Mean Corpuscular Volume 93.3 Mean Corpuscular Hemoglobin 31.6 Mean Corpuscular Hemoglobin 33.9 Concent Red Cell Distribution Width 14.6 Platelet Count 172 Mean Platelet Volume 9.3 Imaging Last Impressions Abdomen/Pelvis CT 05/06/16 0318 Signed Impressions: Service Date/Time: April 04:40 - CONCLUSION: 1. Cirrhotic liver with cholelithiasis. 2. Wall thickening of distal duodenum and proximal jejunum, could be enteritis. 3. Mild nonspecific wall thickening of the cecum and ascending colon. Carlito Trejo MD Physical Exam HEENT: normocephalic; atraumatic; no jaundice. NECK: Neck is supple, no JVD, no lymphadenopathy. CHEST: Chest is clear to auscultation and percussion. CARDIAC: Regular rate and rhythm ABDOMEN: Soft, nondistended, nontender; no hepatosplenomegaly; bowel sounds are present in all four quadrants. EXTREMITIES: No clubbing, cyanosis, or edema. SKIN: Normal; no rash; no jaundice. 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 (Barbara Godwin) Assessment and Plan Plan ASSESSMENT: - Upper GI bleeding with hematemesis/melena. Resolved, S/P EGD/colonoscopy on (05/07/16) normal EGD, normal colonoscopy - N/V, abdominal pain. Resolved, CT scan abdomen and pelvis with IV contrast ( 05/06/16) revealed cirrhotic liver with cholelithiasis, wall thickening of the distal duodenum and proximal jejunum, could be enteritis, mild nonspecific wall thickening of the cecum and ascending colon. - Abnormal imaging with wall thickening of the distal duodenum and proximal jejunum and wall thickening of cecum and ascending colon. EGD/Colon normal on ( 05/07/16) - AMS, Hepatic encephalopathy. She is alert and oriented although she is speaking at invisible objects. Will check ammonia level - Liver cirrhosis secondary to chronic hepatitis C and ongoing alcohol abuse. Dx 3 years ago. Still drinks 2 shots per day. - Elevated LFTs secondary to cirrhosis and ETOH use. T. Bili 1.8, AST 65, ALT 40 , ALk Phosph 237. - HCV, chronic. Tx naive. Not a candidate for tx until she has been off ETOH abuse x 6 months. PLAN: - BRIDGETT - DC octreotide - Protonix 40 mg BID - Cont. Xifaxan - Cont. Lactulose - Supportive care - Further recommendations to follow based on results of above - Pt seen and examined by Dr. Willams and myself and this note is written on his behalf (Barbara Godwin) Physician Comments Patient seen and examined Agree with above Continue with current supportive care Monitor labs We will sign off (Sami Willams MD) Barbara Godwin May 08, 2016 16:15 Sami Willams MD May 08, 2016 19:38
[2016-05-08] MEDS: PANTOPRAZOLE SODIUM 40 MG VIAL IV PUSH SCH (17:08)
--- NOTE | 2016-05-08 17:45 | EC ---
Study Study Date:05/08/2016 STUDY CONCLUSIONS SUMMARY - Left ventricle: The cavity size was normal. Wall thickness was normal. Systolic function was normal. The estimated ejection fraction was in the range of 50% to 55%. Wall motion was normal; there were no regional wall motion abnormalities. - Aortic valve: Valve area: 2.13cm^2 (Vmax). - Mitral valve: Mild regurgitation. - Tricuspid valve: Mild-moderate regurgitation. - Pulmonary arteries: PA peak pressure: 33mm Hg (S). If LV function is below 40, please consider prescribing an ACEI or ARB or document rationale for non-use. PROCEDURE DATA STUDY STATUS: Elective. Procedure: Transthoracic echocardiography. Image quality was good. Scanning was performed from the parasternal, apical, and subcostal acoustic windows. Study completion: The patient tolerated the procedure well. Transthoracic echocardiography. M-mode, complete 2D, complete spectral Doppler, and color Doppler. Patient status: Inpatient. CARDIAC ANATOMY LEFT VENTRICLE: The cavity size was normal. Wall thickness was normal. Systolic function was normal. The estimated ejection fraction was in the range of 50% to 55%. Wall motion was normal; there were no regional wall motion abnormalities. AORTIC VALVE: Trileaflet; normal thickness leaflets. Doppler: Transvalvular velocity was within the normal range. There was no stenosis. No regurgitation. Valve area: 2.13cm^2 (Vmax). AORTA: Aortic root: The aortic root was normal in size. MITRAL VALVE: Structurally normal valve. Doppler: Transvalvular velocity was within the normal range. There was no evidence for stenosis. Mild regurgitation. Peak gradient: 3mm Hg (D). LEFT ATRIUM: The atrium was normal in size. RIGHT VENTRICLE: The cavity size was normal. Wall thickness was normal. PULMONIC VALVE: Doppler: Transvalvular velocity was within the normal range. There was no evidence for stenosis. No regurgitation. TRICUSPID VALVE: Structurally normal valve. Doppler: Transvalvular velocity was within the normal range. Mild-moderate regurgitation. PULMONARY ARTERY: The main pulmonary artery was normal-sized. Systolic pressure was within the normal range. RIGHT ATRIUM: The atrium was normal in size. PERICARDIUM: There was no pericardial effusion. SYSTEMIC VEINS: Inferior vena cava: The vessel was normal in size. BASIC MEASUREMENTS ADULT NORMAL Left ventricle LV internal dimension, ED, chordal level, 48.9 mm 43-52 PLAX LV internal dimension, ES, chordal level, 38 mm 23-38 PLAX Fractional shortening, chordal level, PLAX *22 % >29 LV posterior wall thickness, ED 8.27 mm IVS/LVPW ratio, ED 1.13 <1.3 Ventricular septum Septal thickness, ED 9.37 mm Aortic valve Leaflet separation 15 mm 15-26 BASIC MEASUREMENTS ADULT NORMAL Aortic valve Leaflet separation 15 mm 15-26 Aorta Root diameter, ED 25 mm 20-37 Left atrium Anterior-posterior dimension, ES 34 mm 19-40 LA/aortic root ratio 1.36 DOPPLER MEASUREMENTS ADULT NORMAL Main pulmonary artery Pressure, S *33 mm Hg =30 Aortic valve Peak velocity, S 125 cm/s Valve area, Vmax 2.13 cm^2 Mitral valve Peak E-wave velocity 80.9 cm/s Peak A-wave velocity 45.9 cm/s Deceleration time *289 ms 150-230 Peak gradient, D 3 mm Hg Peak E/A ratio 1.8 Maximal regurgitant velocity 194 cm/s Tricuspid valve Regurgitant peak velocity 225 cm/s Peak RV-RA gradient, S 20 mm Hg Maximal regurgitant velocity 225 cm/s Systemic veins Estimated CVP 10 mm Hg Right ventricle RV pressure, S *37 mm Hg <30 Pulmonic valve Peak velocity, S 97.7 cm/s LEGEND: Mean values are shown as u=mean value. Asterisk (*) chacon values outside specified normal range. Prepared and signed by Jarrett Fleming [id number]
[2016-05-09] VITALS (11 sets, daily range): BP systolic 112–179; BP diastolic 62–91; PULSE 66–86; RESP 17–24; TEMP 98.1–98.9; O2SAT 94–98
[2016-05-09] MEDS: MORPHINE SULFATE 4 MG/ML INJ IV PRN ×3 (01:04→20:45)
[2016-05-09] MEDS: LORazepam 2 MG/ML VIAL IV PUSH PRN ×2 (02:59→12:07)
[2016-05-09] MEDS: D5-1/2 NS + KCL 20 MEQ INJ 1,000 ML IV SCH ×2 (03:16→16:00)
[2016-05-09] MEDS: CHLORHEXIDINE GLUCONATE 2 % 1 PACK (2 CLOTHS)(taper/protocol) TOP SCH (04:00)
[2016-05-09] MEDS: PANTOPRAZOLE SODIUM 40 MG VIAL IV PUSH SCH ×2 (04:57→17:00)
[2016-05-09] MEDS: LACTULOSE SYRUP 20 GM/30 ML CUP PO SCH (07:57)
[2016-05-09] MEDS: RIFAXIMIN 550 MG TAB PO SCH ×2 (07:58→20:44)
[2016-05-09] MEDS: FOLIC ACID 1 MG TAB PO SCH (07:58)
[2016-05-09] MEDS: METOPROLOL TARTRATE 25 MG TAB PO SCH ×2 (07:58→20:44)
[2016-05-09] MEDS: THIAMINE HCL 100 MG TAB PO SCH (07:58)
[2016-05-09] MEDS: chlordiazePOXIDE 25 MG CAP PO SCH ×3 (07:58→18:00)
[2016-05-09] MEDS: SODIUM CHLORIDE 0.9% FLUSH 5 ML FLUSH FLUSH SCH ×2 (07:59→20:44)
[2016-05-09 08:07] LABS: AUTOMATED NEUTROPHIL # 3.7 TH/MM3 (1.8-7.7); BASOPHIL % 0.6 % (0.0-2.0); EOSINOPHIL # 0.2 TH/MM3 (0-0.4); EOSINOPHIL % 2.8 % (0.0-4.0); HEMO FLAGS DIFF FINAL; LYMPHOCYTE # 1.1 TH/MM3 (1.0-4.8); MEAN CELL VOLUME 93.2 FL (80.0-100.0); MEAN CORPUSCULAR HEMOGLOBIN 31.4 PG (27.0-34.0); MEAN CORPUSCULAR HGB CONC 33.7 % (32.0-36.0); MONO % 13.4 % (0.0-8.0); NEUT % 64.2 % (16.0-70.0); PLATELET COUNT 193 TH/MM3 (150-450); RED BLOOD COUNT 3.43 MIL/MM3 (4.00-5.30); RED CELL DISTRIBUTION WIDTH 14.6 % (11.6-17.2); WHITE BLOOD COUNT 5.8 TH/MM3 (4.0-11.0)
[2016-05-09 08:28] LABS: ALT (GPT) 44 U/L (10-53); ANION GAP 5 MEQ/L (5-15); AST (GOT) 62 U/L (15-37); BICARBONATE 34.1 MEQ/L (21.0-32.0); BLOOD UREA NITROGEN 2 MG/DL (7-18); CHLORIDE 105 MEQ/L (98-107); GLOMERULAR FILTRATION RATE 85 ML/MIN (>89); POTASSIUM 3.9 MEQ/L (3.5-5.1); SODIUM (NA) 144 MEQ/L (136-145)
[2016-05-09 08:30] LABS: ALKALINE PHOSPHATASE 158 U/L (45-117); TOTAL BILIRUBIN ADULT 0.7 MG/DL (0.2-1.0)
--- NOTE | 2016-05-09 13:24 | HHI.PR ---
Subjective History of Present Illness Patient agitation better on ativan + Thiamine and folic acid and Librium d/w [employer] tachycardia better. Review of Systems Constitutional Constitutional: Fatigue, Weakness GI/Abdomen GI/Abdomen Remarks Abdominal distension/ Ascities. Psychiatric Psychiatric: Agitation, Anxiety Vitals/Results Intake & Output 05/08/16 05/08/16 05/09/16 15:00 23:00 07:00 Intake Total 1512 ml 909 ml 952 ml Output Total 1100 ml 500 ml 900 ml Balance 412 ml 409 ml 52 ml Intake Oral 270 ml 200 ml 240 ml IV Total 1242 ml 709 ml 712 ml Output Urine Total 1100 ml 500 ml 900 ml Stool Total 0 ml 0 ml 0 ml Vital Signs Vital Signs Date Time Temp Pulse Resp B/P Pulse Ox O2 Delivery O2 Flow Rate FiO2 05/09/16 11:14 96 Nasal Cannula 2.00 05/09/16 08:00 93 Nasal Cannula 2.00 05/09/16 06:00 77 05/09/16 04:00 98.1 74 24 158/89 94 05/09/16 04:00 74 05/09/16 02:00 68 05/09/16 01:09 22 05/09/16 00:00 66 05/09/16 00:00 98.4 66 22 120/91 95 05/08/16 22:00 75 05/08/16 20:18 93 Nasal Cannula 2.00 05/08/16 20:00 98.2 74 24 161/91 93 05/08/16 20:00 74 05/08/16 19:00 93 Nasal Cannula 2.00 05/08/16 16:00 79 05/08/16 16:00 98.2 89 16 141/90 94 05/08/16 14:00 79 CBC/BMP: 05/09/16 0755 05/09/16 0755 Lab Results Laboratory Tests Test 05/09/16 07:55 White Blood Count 5.8 TH/MM3 Red Blood Count 3.43 MIL/MM3 Hemoglobin 10.8 GM/DL Hematocrit 32.0 % Mean Corpuscular Volume 93.2 FL Mean Corpuscular Hemoglobin 31.4 PG Mean Corpuscular Hemoglobin 33.7 % Concent Red Cell Distribution Width 14.6 % Platelet Count 193 TH/MM3 Mean Platelet Volume 8.1 FL Neutrophils (%) (Auto) 64.2 % Lymphocytes (%) (Auto) 19.0 % Monocytes (%) (Auto) 13.4 % Eosinophils (%) (Auto) 2.8 % Basophils (%) (Auto) 0.6 % Neutrophils # (Auto) 3.7 TH/MM3 Lymphocytes # (Auto) 1.1 TH/MM3 Monocytes # (Auto) 0.8 TH/MM3 Eosinophils # (Auto) 0.2 TH/MM3 Basophils # (Auto) 0.0 TH/MM3 CBC Comment DIFF FINAL Differential Comment Sodium Level 144 MEQ/L Potassium Level 3.9 MEQ/L Chloride Level 105 MEQ/L Carbon Dioxide Level 34.1 MEQ/L Anion Gap 5 MEQ/L Blood Urea Nitrogen 2 MG/DL Creatinine 0.73 MG/DL Estimat Glomerular Filtration 85 ML/MIN Rate Random Glucose 90 MG/DL Calcium Level 8.6 MG/DL Total Bilirubin 0.7 MG/DL Aspartate Amino Transf 62 U/L (AST/SGOT) Alanine Aminotransferase 44 U/L (ALT/SGPT) Alkaline Phosphatase 158 U/L Total Protein 8.0 GM/DL Albumin 2.7 GM/DL Physical Exam General General Appearance: No Acute Distress, Comfortable Eyes Eye Exam: Pupils Equal, Pupils Reactive, Sclera White, Extraocular Movement Intact Throat Throat Exam: Oral Mucosa [place] & Moist, Oral Pharynx Normal Neck Neck Exam: Neck Supple, Trachea Midline Pulmonary Resp Exam: Clear Bilaterally, Breath Sounds Equal Cardiology CV Exam: Regular, Normal Sinus Rhythm Gastrointestinal/Abdomen GI Exam: Soft GI Remarks Abdominal distension/ Ascities. mild diffuse abdominal tenderness, Musculoskeletal MS Exam: Joints Intact, Normal Tone Integumentary Skin Exam: Warm, Dry Skin Remarks Multiple wound on all over body. Extremeties Extremities Exam: No Edema Neurologic Neuro Exam: Alert, Awake, Oriented, Speech Clear, Moving All Extremities, No Focal Deficits Psychiatric Psych Exam: Appropriate Responses VTE Prophylaxis VTE Prophylaxis Device: SCDs PUD Prophylasis PUD Prophylaxis: Protonix Assessment/Plan Assessment/Plan ASSESSMENT/PLAN 1. This is a 45-year female who came to the ER diagnosed with hematemesis secondary to portal hypertension and alcohol liver disease. The patient also had black tarry stools. The patient had a history of end-stage liver disease with liver cirrhosis. The patient had an EEG done on 02/02/2016 and had esophageal varices in the distal esophagus and band ligation x 2 was performed at that time. The patient is currently off a octrotide drip and also on Protonix 40 mg IV BID.. Currently not bleeding. Hemoglobin is stable. GI is on the case, S/P an EGD and colonoscopy within normal limits.. 2. Nausea and vomiting. The patient is on Zofran. 3. Abdominal pain secondary to distended ascites. There is also entritis with nonspecific thickening of the cecum and ascending colon. 4. Hepatic encephalopathy, ammonia level was high. The patient is on lactulose. 5. 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 She is still drinking. Advised to stop drinking. 6. Heavy alcohol abuse. The patient is on DT Prophylaxis. 7. History of chronic hepatitis C. Treatment, not a candidate for treatment until she has been off alcohol abuse for 6-months. 8. DVT prophylaxis SCD's. 9. GI prophylaxis. The patient is on Protonix iv . 40 mg BID. 10. Anemia secondary to acute blood loss anemia secondary to hematemesis. We are going to manage the patient on a daily basis and make recommendations on a daily basis. Discussed Condition with: Patient Dhaval Conley MD May 09, 2016 13:24
[2016-05-10] VITALS (7 sets, daily range): BP systolic 132–139; BP diastolic 71–77; PULSE 74–78; RESP 20–22; TEMP 98.1–98.5; O2SAT 91–95
[2016-05-10] MEDS: D5-1/2 NS + KCL 20 MEQ INJ 1,000 ML IV SCH (00:05)
[2016-05-10] MEDS: MORPHINE SULFATE 4 MG/ML INJ IV PRN (02:09)
[2016-05-10] MEDS: CHLORHEXIDINE GLUCONATE 2 % 1 PACK (2 CLOTHS)(taper/protocol) TOP SCH (04:00)
[2016-05-10] MEDS: PANTOPRAZOLE SODIUM 40 MG VIAL IV PUSH SCH (04:56)
--- NOTE | 2016-05-10 07:27 | HHI.PR ---
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 ok to dc home today. Review of Systems Constitutional Constitutional: Fatigue, Weakness GI/Abdomen GI/Abdomen Remarks Abdominal distension/ Ascities. Psychiatric Psychiatric: Agitation, Anxiety Vitals/Results Intake & Output 05/09/16 05/09/16 05/10/16 15:00 23:00 07:00 Intake Total 1996 ml 746 ml Output Total 2900 ml 1600 ml Balance -904 ml -854 ml Intake Oral 600 ml 120 ml IV Total 1396 ml 626 ml Output Urine Total 2900 ml 1600 ml Stool Total 0 ml 0 ml Vital Signs Vital Signs Date Time Temp Pulse Resp B/P Pulse Ox O2 Delivery O2 Flow Rate FiO2 05/10/16 06:00 77 05/10/16 04:00 75 05/10/16 04:00 98.3 75 22 139/71 91 05/10/16 02:14 20 05/10/16 02:00 77 05/10/16 00:00 74 05/10/16 00:00 98.1 74 20 135/75 95 05/09/16 22:00 76 05/09/16 20:12 96 Nasal Cannula 2.00 05/09/16 20:00 86 05/09/16 20:00 98.5 86 22 179/74 96 05/09/16 20:00 96 Nasal Cannula 2.00 05/09/16 16:00 98.8 81 17 135/62 94 05/09/16 12:00 98.9 72 18 112/68 98 05/09/16 11:14 96 Nasal Cannula 2.00 05/09/16 08:00 93 Nasal Cannula 2.00 05/09/16 08:00 98.3 72 21 120/76 94 CBC/BMP: 05/09/16 0755 05/09/16 0755 Lab Results Laboratory Tests Test 05/09/16 07:55 White Blood Count 5.8 TH/MM3 Red Blood Count 3.43 MIL/MM3 Hemoglobin 10.8 GM/DL Hematocrit 32.0 % Mean Corpuscular Volume 93.2 FL Mean Corpuscular Hemoglobin 31.4 PG Mean Corpuscular Hemoglobin 33.7 % Concent Red Cell Distribution Width 14.6 % Platelet Count 193 TH/MM3 Mean Platelet Volume 8.1 FL Neutrophils (%) (Auto) 64.2 % Lymphocytes (%) (Auto) 19.0 % Monocytes (%) (Auto) 13.4 % Eosinophils (%) (Auto) 2.8 % Basophils (%) (Auto) 0.6 % Neutrophils # (Auto) 3.7 TH/MM3 Lymphocytes # (Auto) 1.1 TH/MM3 Monocytes # (Auto) 0.8 TH/MM3 Eosinophils # (Auto) 0.2 TH/MM3 Basophils # (Auto) 0.0 TH/MM3 CBC Comment DIFF FINAL Differential Comment Sodium Level 144 MEQ/L Potassium Level 3.9 MEQ/L Chloride Level 105 MEQ/L Carbon Dioxide Level 34.1 MEQ/L Anion Gap 5 MEQ/L Blood Urea Nitrogen 2 MG/DL Creatinine 0.73 MG/DL Estimat Glomerular Filtration 85 ML/MIN Rate Random Glucose 90 MG/DL Calcium Level 8.6 MG/DL Total Bilirubin 0.7 MG/DL Aspartate Amino Transf 62 U/L (AST/SGOT) Alanine Aminotransferase 44 U/L (ALT/SGPT) Alkaline Phosphatase 158 U/L Total Protein 8.0 GM/DL Albumin 2.7 GM/DL Physical Exam General General Appearance: No Acute Distress, Comfortable Eyes Eye Exam: Pupils Equal, Pupils Reactive, Sclera White, Extraocular Movement Intact Throat Throat Exam: Oral Mucosa [place] & Moist, Oral Pharynx Normal Neck Neck Exam: Neck Supple, Trachea Midline Pulmonary Resp Exam: Clear Bilaterally, Breath Sounds Equal Cardiology CV Exam: Regular, Normal Sinus Rhythm Gastrointestinal/Abdomen GI Exam: Soft GI Remarks Abdominal distension/ Ascities. mild diffuse abdominal tenderness, Musculoskeletal MS Exam: Joints Intact, Normal Tone Integumentary Skin Exam: Warm, Dry Skin Remarks Multiple wound on all over body. Extremeties Extremities Exam: No Edema Neurologic Neuro Exam: Alert, Awake, Oriented, Speech Clear, Moving All Extremities, No Focal Deficits Psychiatric Psych Exam: Appropriate Responses VTE Prophylaxis VTE Prophylaxis Device: SCDs PUD Prophylasis PUD Prophylaxis: Protonix Assessment/Plan Assessment/Plan ASSESSMENT/PLAN 1. This is a 45-year female who came to the ER diagnosed with hematemesis secondary to portal hypertension and alcohol liver disease. The patient also had black tarry stools. The patient had a history of end-stage liver disease with liver cirrhosis. The patient had an EEG done on 02/02/2016 and had esophageal varices in the distal esophagus and band ligation x 2 was performed at that time. The patient is currently off a octrotide drip and also on Protonix 40 mg IV BID.. Currently not bleeding. Hemoglobin is stable. GI is on the case, S/P an EGD and colonoscopy within normal limits.. 2. Nausea and vomiting. The patient is on Zofran. 3. Abdominal pain secondary to distended ascites. There is also entritis with nonspecific thickening of the cecum and ascending colon. 4. Hepatic encephalopathy, ammonia level was high. The patient is on lactulose. 5. 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 She is still drinking. Advised to stop drinking. 6. Heavy alcohol abuse. The patient is on DT Prophylaxis. 7. History of chronic hepatitis C. Treatment, not a candidate for treatment until she has been off alcohol abuse for 6-months. 8. DVT prophylaxis SCD's. 9. GI prophylaxis. The patient is on Protonix iv . 40 mg BID. 10. Anemia secondary to acute blood loss anemia secondary to hematemesis. ok to dc home today. f/u with pcp/GI 1 week. Discussed Condition with: Patient Dhaval Conley MD May 10, 2016 07:27
[2016-05-10 07:48] LABS: AUTOMATED NEUTROPHIL # 3.7 TH/MM3 (1.8-7.7); BASOPHIL % 0.6 % (0.0-2.0); EOSINOPHIL # 0.2 TH/MM3 (0-0.4); EOSINOPHIL % 2.8 % (0.0-4.0); HEMATOCRIT 29.8 % (35.0-46.0); HEMO FLAGS DIFF FINAL; LYMPH % 21.9 % (9.0-44.0); LYMPHOCYTE # 1.4 TH/MM3 (1.0-4.8); MEAN CELL VOLUME 93.4 FL (80.0-100.0); MEAN CORPUSCULAR HEMOGLOBIN 31.4 PG (27.0-34.0); MEAN CORPUSCULAR HGB CONC 33.6 % (32.0-36.0); MONO % 14.3 % (0.0-8.0); NEUT % 60.4 % (16.0-70.0); PLATELET COUNT 180 TH/MM3 (150-450); RED BLOOD COUNT 3.19 MIL/MM3 (4.00-5.30); RED CELL DISTRIBUTION WIDTH 14.2 % (11.6-17.2); WHITE BLOOD COUNT 6.2 TH/MM3 (4.0-11.0)
[2016-05-10 07:52] LABS: ALT (GPT) 37 U/L (10-53); ANION GAP 6 MEQ/L (5-15); AST (GOT) 46 U/L (15-37); BLOOD UREA NITROGEN 4 MG/DL (7-18); CHLORIDE 102 MEQ/L (98-107); GLOMERULAR FILTRATION RATE 101 ML/MIN (>89); POTASSIUM 3.8 MEQ/L (3.5-5.1); SODIUM (NA) 143 MEQ/L (136-145)
[2016-05-10 07:55] LABS: ALKALINE PHOSPHATASE 169 U/L (45-117); TOTAL BILIRUBIN ADULT 0.6 MG/DL (0.2-1.0)
[2016-05-10] MEDS: chlordiazePOXIDE 25 MG CAP PO SCH (07:55)
[2016-05-10] MEDS: METOPROLOL TARTRATE 25 MG TAB PO SCH (09:00)
[2016-05-10] MEDS: SODIUM CHLORIDE 0.9% FLUSH 5 ML FLUSH FLUSH SCH (09:00)
[2016-05-10] MEDS: LACTULOSE SYRUP 20 GM/30 ML CUP PO SCH (09:00)
[2016-05-10] MEDS: RIFAXIMIN 550 MG TAB PO SCH (09:00)
[2016-05-10] MEDS: FOLIC ACID 1 MG TAB PO SCH (09:00)
[2016-05-10] MEDS: THIAMINE HCL 100 MG TAB PO SCH (09:00)
[2016-05-10] MEDS ORDERED: CHLO25CA2 PO (09:09)
[2016-05-10] MEDS ORDERED: METO25TA3 PO (09:09)
[2016-05-10] MEDS ORDERED: FOLI1TAB4 PO (09:09)
[2016-05-10] MEDS ORDERED: XIFA550T4 PO (09:09)
[2016-05-10] MEDS ORDERED: LORA1TAB12 PO (09:09)
[2016-05-10] MEDS ORDERED: VITA100T2 PO (09:09)
--- NOTE | 2016-05-19 13:03 | MD ---
cc: DHAVAL MCKEON MD ADMISSION DATE: 05/06/2016 DISCHARGE DATE: 05/10/2016 Okay to discharge the patient home. CONDITION AT THE TIME OF DISCHARGE Satisfactory ACTIVITY As tolerated. DIET Cardiac diet ALLERGIES NO KNOWN DRUG ALLERGIES. MEDICATIONS 1. Chlordiazepoxide 25 mg p.o. t.i.d. 2. Folic acid 1 mg daily 3. Lorazepam 1 mg p.o. q. 4-hour 4. Metoprolol 25 mg p.o. b.i.d. 5. Rifaximin 550 mg twice a day 6. Thiamine 100 mg p.o. daily FOLLOW UP The patient advised to follow up with PCP and cardiology in one week. ADMITTING DIAGNOSIS 1. Hematemesis secondary to portal hypertension and esophageal varices. 2. The patient has a history of alcoholic liver disease and hepatitis C. 3. The patient had an EEG done on 02/02/2016 which shows esophageal varices. 4. Nausea and vomiting which has resolved. 5. Abdominal pain secondary to distended ascites which is Improved. 6. History of cirrhosis of liver secondary to alcoholic cirrhosis as well as hepatitis C. 7. Heavy alcohol abuse. The patient advised to quit. 8. Anemia secondary to acute blood loss secondary to hematemesis. HOSPITAL COURSE This is a 45-year female admitted with above-mentioned medical problems and had a hematemesis episode which has resolved. The patient had EGD and colonoscopy done and on this admission which was normal. The patient was given a Octreotide drip as well as Protonix drip. The patient remained stable. No acute event happened. The patient discharged in a satisfactory condition. Further details in the medical record. Dhaval Mckeon MD EA/IVAN /9:36 AM /1:00 PM
== END 2016-05-10 09:35 | disposition home or self-care (01) | DRG 378 ==
LOC: NEPE 00:28 → NEDA 05:36 → HIMN 07:50
PROVIDERS: ADMIT Family Medicine; ATTEND Family Medicine
PROC: 0DJ08ZZ Inspection of Upper Intestinal Tract, Via Natural or Artificial Opening Endoscopic (ICD-10-PCS; principal; 2016-05-07 13:40)
PROC: 0DJD8ZZ Inspection of Lower Intestinal Tract, Via Natural or Artificial Opening Endoscopic (ICD-10-PCS; 2016-05-07 13:40)
DX: K92.0 Hematemesis (principal); K76.6 Portal hypertension; K70.31 Alcoholic cirrhosis of liver with ascites; D62 Acute posthemorrhagic anemia; G40.509 Epileptic seizures related to external causes, not intractable, without status epilepticus; F10.239 Alcohol dependence with withdrawal, unspecified; K72.90 Hepatic failure, unspecified without coma; K92.1 Melena; B18.2 Chronic viral hepatitis C; E03.9 Hypothyroidism, unspecified; J45.909 Unspecified asthma, uncomplicated; J44.9 Chronic obstructive pulmonary disease, unspecified; K21.9 Gastro-esophageal reflux disease without esophagitis; I10 Essential (primary) hypertension; K80.20 Calculus of gallbladder without cholecystitis without obstruction; G40.909 Epilepsy, unspecified, not intractable, without status epilepticus; M19.90 Unspecified osteoarthritis, unspecified site; F14.10 Cocaine abuse, uncomplicated; F15.10 Other stimulant abuse, uncomplicated; F17.210 Nicotine dependence, cigarettes, uncomplicated; F31.9 Bipolar disorder, unspecified; Y90.0 Blood alcohol level of less than 20 mg/100 ml; Z78.1 Physical restraint status; Z86.14 Personal history of Methicillin resistant Staphylococcus aureus infection
CPT/HCPCS: 36600; 74177; 76937; 80053; 80320; 81001; 82140; 82805; 83690; 84703; 85014; 85018; 85025; 85027; 85610; 85730; 86077; 86850; 86870; 86900; 86901; 86902; 86920; 86922; 87641; 93005; 93306; 96365; 96375; C9113; J0744; J2060; J2270; J2354; J2405; J3010; J3480; J7040; Q9967

== ENCOUNTER 2016-07-05 23:12 | Inpatient (IN) | payer OTHER ==
[~2016-07-05] VITALS: Ht 154.9 cm; Wt 63.6 kg
[~2016-07-05 23:12] MED LIST changes: -ALBU8I INH; -CHLO25 PO; +CHLO25CA2 PO; -CLON.1 PO; -FERR325T PO; -FOLI1 PO; +FOLI1TAB4 PO; -FURO20 PO; -LACT20SO4 PO; -LEVE500 PO; -LEVO.075 PO; +LORA1TAB12 PO; +METO25TA3 PO; -OXYC5 PO; -PROT40TA PO; -RIFA550 PO; -SERT-132 PO; -SPIR25 PO; -THERM PO; +VITA100T2 PO; +XIFA550T4 PO; -[UNRECOGNIZED DRUG - CODE] PO
[2016-07-05 23:17] VITALS: BP 179/92; PULSE 100; RESP 24; TEMP 98.8; O2SAT 100
[2016-07-06] VITALS (12 sets, daily range): BP systolic 143–165; BP diastolic 80–108; PULSE 92–111; RESP 12–22; TEMP 98.6–98.7; O2SAT 93–98
[2016-07-06 00:49] LABS: ALKALINE PHOSPHATASE 212 U/L (45-117); TOTAL BILIRUBIN ADULT 1.5 MG/DL (0.2-1.0)
[2016-07-06 00:52] LABS: ALT (GPT) 45 U/L (10-53); ANION GAP 14 MEQ/L (5-15); AST (GOT) 72 U/L (15-37); BICARBONATE 20.8 MEQ/L (21.0-32.0); BLOOD UREA NITROGEN 5 MG/DL (7-18); CHLORIDE 105 MEQ/L (98-107); GLOMERULAR FILTRATION RATE 74 ML/MIN (>89); MAGNESIUM 1.6 MG/DL (1.5-2.5); POTASSIUM 4.1 MEQ/L (3.5-5.1); SODIUM (NA) 140 MEQ/L (136-145)
[2016-07-06] MEDS ORDERED: HYDROmorphone HCL PF 1 MG/ML VIAL IV PUSH ONE (01:00)
[2016-07-06] MEDS ORDERED: ONDANSETRON HCL 4 MG/2 ML VIAL IV PUSH ONE (01:00)
[2016-07-06] MEDS ORDERED: SODIUM CHLORID 0.9% 500 ML INJ 500 ML IV ONE (01:00)
--- NOTE | 2016-07-06 01:01 | PD ---
HPI Chief Complaint: Abdominal Pain Time Seen by Provider: 00:04 Travel History International Travel<30 days: No Contact w/Intl Traveler<30days: No Traveled to known affect area: No History of Present Illness HPI The patient is a 45 year old female who presents to the [facility] emergency department with a history of abdominal pain that began this afternoon. The patient reports that she is concerned that her pancreas may be inflamed. She reports that she has been attempting to taper down her alcohol use. She reports that she had 2 drinks earlier today. She has a history of cirrhosis. She last took her lactulose 2 days ago. She reports that her stools have been soft. She denies having any blood in her stool or black or tarry stools. She denies having any blood in her emesis. The patient reports that she's had nausea and vomiting 7. The patient reports that the pain is sharp in character in her abdomen and is severe. She reports that the pain is located across the top of her abdomen and bilateral upper quadrants above the umbilicus. She reports having chronic chest tightness and shortness of breath related to her COPD, however she has had a worsening cough recently. The patient denies any recent fevers, neck pain, diarrhea, urinary symptoms, or neurologic symptoms. [facility] Past Medical History Narrative Medical The patient's past medical history is significant for COPD, asthma, chronic of her disease with cirrhosis and ascites, end-stage renal disease, anemia, arthritis, anxiety disorder, history of diverticulitis, history of hepatitis, hiatal hernia, hypertension, bipolar disorder, pancreatitis, hypothyroid disorder, esophageal varices, alcohol abuse. Hx Anticoagulant Therapy: Yes (ASA) Anemia: Yes Arthritis: Yes Asthma: Yes Autoimmune Disease: No Blood Disorders: No Bipolar Disorder: Yes Anxiety: Yes Depression: No Heart Rhythm Problems: Yes (QUESTIONABLE MURMUR) Cancer: No Cardiovascular Problems: Yes (HTN) High Cholesterol: No Chemotherapy: No Chest Pain: No Congestive Heart Failure: No Cirrhosis: Yes COPD: Yes Cerebrovascular Accident: No Diabetes: Yes (BORDERLINE) Patient Takes Glucophage: No Diminished Hearing: No Diverticulitis: Yes Endocrine: Yes Gastrointestinal Disorders: Yes ("PROBLEMS WITH LIVER", ESOPHAGEAL VARICIES) GERD: Yes Genitourinary: No Headaches: Yes Hepatitis: Yes (A&C) Hiatal Hernia: Yes Heparin Induced Thrombocytopen: No Hypertension: Yes Immune Disorder: No Implanted Vascular Access Dvce: No Kidney Stones: No Musculoskeletal: Yes Neurologic: No Psychiatric: Yes (BIPOLAR) Reproductive: No Respiratory: Yes (COPD) Integumentary: Yes Immunizations Current: No Migraines: No Pancreatitis: Yes Radiation Therapy: No Renal Failure: No Seizures: Yes Sickle Cell Disease: No Sleep Apnea: No Thyroid Disease: Yes Ulcer: Yes Tetanus Vaccination: < 5 Years Influenza Vaccination: Yes ?: Not Menopausal: Yes : 4 Para: 3 : 1 Tubal Ligation: Yes Past Surgical History Narrative Surgical The patient's past surgical history is significant for right leg surgery, endoscopy. Abdominal Surgery: Yes (ESOPHAGEAL VARICES WITH BANDING) AICD: No Arteriovenous Shunt: No Cardiac Surgery: No Ear Surgery: No Endocrine Surgery: No Eye Surgery: No Genitourinary Surgery: No Gynecologic Surgery: Yes (CERVICAL FREEZE) Insulin Pump: No Joint Replacement: No Neurologic Surgery: No Oral Surgery: Yes (ALL TEETH REMOVED) Pacemaker: No Thoracic Surgery: No Other Surgery: Yes (ANTHROSCOPIC RIGHT ANKLE,FRACTURE RIGHT LEG,BONE GRAPH.) Social History Alcohol Use: Yes (2 drinks per day) Tobacco Use: Yes (1/2 ppk ) Substance Use: Yes (COCAINE, METH PER HX) Allergies-Medications (Allergen,Severity, Reaction): Coded Allergies: *MDRO Multi-Drug Resistant Organism (Verified Adverse Reaction, Unknown, ) 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) Reported Meds & Prescriptions Reported Meds & Active Scripts Active Lorazepam 1 Mg Tab 1 Mg PO Q4H PRN Metoprolol Tartrate 25 Mg Tab 25 Mg PO BID Vitamin B-1 (Thiamine HCl) 100 Mg Tab 100 Mg PO DAILY Xifaxan (Rifaximin) 550 Mg Tab 550 Mg PO BID Folate (Folic Acid) 1 Mg Tab 1 Mg PO DAILY Review of Systems Except as stated in HPI: all other systems reviewed are Neg General / Constitutional: No: Fever Eyes: No: Visual changes HENT: No: Headaches Cardiovascular: Positive: Chest Pain or Discomfort, Dyspnea on exertion Respiratory: Positive: Cough, Shortness of Breath, Wheezing Gastrointestinal: Positive: Nausea, Vomiting, Abdominal Pain, No: Diarrhea, Hematemesis, Hematochezia, Changes in Bowel Habits, Indigestion, Loss of Appetite Genitourinary: No: Dysuria Musculoskeletal: No: Pain Skin: No Rash Neurologic: No: Weakness Psychiatric: No: Depression Endocrine: No: Polydipsia Hematologic/Lymphatic: No: Easy Bruising Physical Exam Narrative General: The patient is a well-developed somewhat disheveled-appearing female, uncomfortable on examination, holding her upper abdomen. Head and Neck exam: Head is normocephalic atraumatic. Eyes: EOMI, pupils are equal round and reactive to light. Nose: Midline septum with pink mucous membranes Mouth: Dentition unremarkable. Moist mucus membranes. Posterior oropharynx is not erythematous. No tonsillar hypertrophy. Uvula midline. Airway patent. Neck: No palpable lymphadenopathy. No nuchal rigidity. No thyromegaly. Cardiovascular: Sinus tachycardia in the low 100 without murmurs, gallops, or rubs. Lungs: Clear to auscultation bilaterally. No wheezes, rhonchi, or rales. Abdomen: Soft, with tenderness on palpation in bilateral upper quadrants of the abdomen and in the midepigastric area, no other tenderness on palpation of the other quadrants of the abdomen, bilateral lower quadrants are nontender. No guarding, rebound, or rigidity. Negative Bradford sign. No tenderness on palpation of McBurney's point. Normal bowel sounds are audible. Extremities: No clubbing, cyanosis, or edema. 2+ pulses in all 4 extremities. No calf tenderness on palpation. Back: No spinous process tenderness to palpation. No costovertebral angle tenderness to palpation. Neurologic Exam: Grossly nonfocal. The patient is slightly tremulous on examination. Skin Exam: On examination of the skin of her face and extremities the patient has multiple areas of skin abrasions that appear to be pick chacon. No drainage is noted. No pustules. Data Data Last Documented VS Vital Signs Date Time Temp Pulse Resp B/P Pulse Ox O2 Delivery O2 Flow Rate FiO2 07/06/16 04:30 98 21 07/06/16 04:30 103 16 163/90 Room Air 07/05/16 23:17 98.8 Orders Electrocardiogram (07/06/16 00:07) Complete Blood Count With Diff (07/06/16 00:07) Comprehensive Metabolic Panel (07/06/16 00:07) C-Reactive Protein (Crp) (07/06/16 00:07) Lipase (07/06/16 00:07) Urinalysis - C+S If Indicated (07/06/16 00:07) Magnesium (Mg) (07/06/16 00:07) Chest, Single Ap (07/06/16 00:07) Iv Access Insert/Monitor (07/06/16 00:07) Ecg Monitoring (07/06/16 00:07) Oximetry (07/06/16 00:07) Drug Screen, Random Urine (07/06/16 00:07) Alcohol (Ethanol) (07/06/16 00:07) Lactic Acid (07/06/16 00:07) Ed Urine Pregnancytest Poc (07/06/16 00:07) Sodium Chlorid 0.9% 500 Ml Inj (Ns 500 M (07/06/16 01:00) Ondansetron Inj (Zofran Inj) (07/06/16 01:00) Hydromorphone Pf Inj (Dilaudid Pf Inj) (07/06/16 01:00) Ct Abd/Pel W Iv Contrast(Rout) (07/06/16 03:54) Piperacil-Tazo 3.375 Gm Premix (Zosyn 3. (07/06/16 04:00) Sodium Chlor 0.9% 1000 Ml Inj (Ns 1000 M (07/06/16 04:00) Lorazepam Inj (Ativan Inj) (07/06/16 04:00) Iohexol 350 Inj (Omnipaque 350 Inj) (07/06/16 04:19) Admit Order (Ed Use Only) (07/06/16 04:58) Labs Laboratory Tests Test 07/06/16 07/06/16 00:20 01:00 Sodium Level 140 MEQ/L Potassium Level 4.1 MEQ/L Chloride Level 105 MEQ/L Carbon Dioxide Level 20.8 MEQ/L Anion Gap 14 MEQ/L Blood Urea Nitrogen 5 MG/DL Creatinine 0.83 MG/DL Estimat Glomerular Filtration 74 ML/MIN Rate Random Glucose 119 MG/DL Lactic Acid Level 2.1 mmol/L Calcium Level 9.7 MG/DL Magnesium Level 1.6 MG/DL Total Bilirubin 1.5 MG/DL Aspartate Amino Transf 72 U/L (AST/SGOT) Alanine Aminotransferase 45 U/L (ALT/SGPT) Alkaline Phosphatase 212 U/L C-Reactive Protein 2.40 MG/DL Total Protein 10.2 GM/DL Albumin 3.7 GM/DL Lipase 118 U/L Ethyl Alcohol Level LESS THAN 3 MG/DL White Blood Count 12.6 TH/MM3 Red Blood Count 4.21 MIL/MM3 Hemoglobin 13.4 GM/DL Hematocrit 38.1 % Mean Corpuscular Volume 90.6 FL Mean Corpuscular Hemoglobin 31.9 PG Mean Corpuscular Hemoglobin 35.2 % Concent Red Cell Distribution Width 14.3 % Platelet Count 211 TH/MM3 Mean Platelet Volume 9.5 FL Neutrophils (%) (Auto) 75.3 % Lymphocytes (%) (Auto) 14.4 % Monocytes (%) (Auto) 9.4 % Eosinophils (%) (Auto) 0.3 % Basophils (%) (Auto) 0.6 % Neutrophils # (Auto) 9.4 TH/MM3 Lymphocytes # (Auto) 1.8 TH/MM3 Monocytes # (Auto) 1.2 TH/MM3 Eosinophils # (Auto) 0.0 TH/MM3 Basophils # (Auto) 0.1 TH/MM3 CBC Comment DIFF FINAL Differential Comment MDM Medical Decision Making Medical Screen Exam Complete: Yes Emergency Medical Condition: Yes Medical Record Reviewed: Yes Interpretation(s) Last Impressions Abdomen/Pelvis CT 07/06/16 0354 Signed Impressions: Service Date/Time: Wednesday, July 06, 2016 04:16 - CONCLUSION: 1. Cirrhosis. 2. Cholelithiasis. 3. Mild splenomegaly. 4. Nonspecific cecal/ascending colon wall thickening is chronic and less prominent than on prior study of April 2016, may represent colitis. Grant Mackey MD Chest X-Ray 07/06/16 0007 Signed Impressions: Service Date/Time: Wednesday, July 06, 2016 00:17 - CONCLUSION: No acute cardiopulmonary disease identified. Grant Mackey MD Head CT 07/06/16 0000 Signed Impressions: Service Date/Time: Wednesday, July 06, 2016 15:04 - CONCLUSION: No acute disease. Dc Winston MD Differential Diagnosis Acute pancreatitis, versus acute cholecystitis, versus ischemic bowel, versus diverticulitis, versus colitis, versus peptic ulcer disease, versus gastritis Narrative Course During the course of the patients emergency department visit, the patients history, examination, and differential diagnosis were reviewed with the patient. The patient had IV access obtained and blood work sent for analysis. The patient was placed on a threat monitoring analyst with oximetry and blood pressure monitoring. An EKG was done on arrival. The patient's EKG shows a sinus rhythm with a short [place] interval, borderline left atrial enlargement, T waves are inverted in V1, no acute ST segment elevation is noted. The patient was provided normal saline a 500 mL bolus 1, Zofran 4 mg IV, hydromorphone 0.5 mg IV. The patient on repeat examination reports that her abdominal pain has improved, however she has worsening anxiety and would like something for this. The patient was given Ativan 1 mg IV. The patients laboratory studies were reviewed and remarkable for a white count of 12.6, hemoglobin 13.4, platelets 211 with 75.3 neutrophils, 9.4 monocytes, CMP is remarkable for CO2 20.8, glucose 119, total bilirubin 1.5, AST 72, alkaline phosphatase 212, C-reactive protein 2.4, urinalysis shows no acute abnormality except for high specific gravity consistent with dehydration, urinalysis shows positive benzodiazepines, alcohol level less than 3. Radiology studies were reviewed and remarkable for a CT scan of the brain that shows no acute abnormality, CT scan of the abdomen and pelvis shows cirrhosis, cholelithiasis, mild splenomegaly, nonspecific colon wall thickening consistent with colitis. The patients results were discussed with the patient, including the plan of care. I explained that further testing and/ or monitoring is indicated based on the patients history, examination, and/ or laboratory findings. Therefore, I recommended admission for additional evaluation. The patient expressed understanding and was agreeable with this plan. The patient was admitted to the hospital in stable condition and sent to a bed under the care of [facility]. Physician Communication Physician Communication The patient's case was discussed with Dc Pollock who did agree to admit the patient to 's service. Diagnosis Primary Impression: Abdominal pain Qualified Code: R10.10 - Pain of upper abdomen Additional Impressions: Vomiting Qualified Code: R11.14 - Bilious vomiting with nausea Colitis Admitting Information Admitting Physician Requests: Palma Pandey MD Jul 06, 2016 01:01
[2016-07-06 01:17] LABS: AUTOMATED NEUTROPHIL # 9.4 TH/MM3 (1.8-7.7); BASOPHIL # 0.1 TH/MM3 (0-0.2); BASOPHIL % 0.6 % (0.0-2.0); EOSINOPHIL % 0.3 % (0.0-4.0); HEMATOCRIT 38.1 % (35.0-46.0); HEMO FLAGS DIFF FINAL; LYMPH % 14.4 % (9.0-44.0); LYMPHOCYTE # 1.8 TH/MM3 (1.0-4.8); MEAN CELL VOLUME 90.6 FL (80.0-100.0); MEAN CORPUSCULAR HEMOGLOBIN 31.9 PG (27.0-34.0); MEAN CORPUSCULAR HGB CONC 35.2 % (32.0-36.0); MONO % 9.4 % (0.0-8.0); NEUT % 75.3 % (16.0-70.0); PLATELET COUNT 211 TH/MM3 (150-450); RED BLOOD COUNT 4.21 MIL/MM3 (4.00-5.30); RED CELL DISTRIBUTION WIDTH 14.3 % (11.6-17.2); WHITE BLOOD COUNT 12.6 TH/MM3 (4.0-11.0)
--- NOTE | 2016-07-06 01:40 | RADRPT ---
EXAM DATE/TIME: 07/06/2016 00:17 [facility] COMPARISON: CHEST SINGLE AP, February 02, 2016, 3:34. INDICATIONS : Chest pain. MEDICAL HISTORY : Chronic obstructive pulmonary disease. Emphysema. SURGICAL HISTORY : None. ENCOUNTER: Initial ACUITY: 1 day PAIN SCORE: 8/10 LOCATION: Bilateral chest FINDINGS: Single AP view of the chest. The lungs are clear. Cardiomediastinal silhouette within normal limits. No evidence of pleural effusion or pneumothorax. CONCLUSION: No acute cardiopulmonary disease identified. Grant Mackey MD on July 06, 2016 at 1:38 Board Certified Radiologist. This report was verified electronically.
[2016-07-06] MEDS: DEXT 5%-NACL 0.45% 1000 ML INJ 1,000 ML IV SCH ×2 (03:00→13:51)
[2016-07-06] MEDS ORDERED: SODIUM CHLOR 0.9% 1000 ML INJ 1,000 ML IV ONE (04:00)
[2016-07-06] MEDS ORDERED: PIPERACIL-TAZO 3.375 GM PREMIX 50 ML IV ONE (04:00)
[2016-07-06] MEDS ORDERED: LORazepam 2 MG/ML VIAL IV PUSH ONE (04:00)
[2016-07-06] MEDS ORDERED: IOHEXOL 350 MG/ML 10 ML VIAL (for RAD DIAG) IV ONE (04:19)
--- NOTE | 2016-07-06 04:39 | RADRPT ---
EXAM DATE/TIME: 07/06/2016 04:16 [facility] COMPARISON: CT ABDOMEN & PELVIS W CONTRAST, May 06, 2016, 4:40. INDICATIONS : Abdominal pain. IV CONTRAST: 100 cc Omnipaque 350 (iohexol) IV ORAL CONTRAST: No oral contrast ingested. RADIATION DOSE: 8.98 CTDIvol (mGy) MEDICAL HISTORY : Hypertension. Chronic obstructive pulmonary disease. Pancreatitis.Esophageal varicies. Hepatitis C. SURGICAL HISTORY : None. ENCOUNTER: Initial ACUITY: 1 day PAIN SCALE: 5/10 LOCATION: Bilateral lower quadrant TECHNIQUE: Volumetric scanning of the abdomen and pelvis was performed. Using automated exposure control and ad justment of the mA and/or kV according to patient size, radiation dose was kept as low as reasonably achievable to obtain optimal diagnostic quality images. FINDINGS: LOWER LUNGS: The visualized lower lungs are clear. LIVER: Diffuse nodularity of the liver capsule indicating cirrhosis. No focal masses identified. 3 mm gallst one in the dependent portion of the gallbladder. No pericholecystic inflammatory changes. SPLEEN: Spleen measures 13 cm in craniocaudal dimension. No focal masses. PANCREAS: Within normal limits. KIDNEYS: Several scattered subcentimeter hypodensities bilaterally likely representing cysts. ADRENAL GLANDS: Within normal limits. VASCULAR: Atherosclerotic disease. Aorta diameter within normal limits. BOWEL/MESENTERY: Mild nonspecific as the ascending colon: wall thickening less prominent than on the comparison study of 05/06/2016. No evidence of bowel dilatation. No free air or free fluid. Appendix within normal limi ts. ABDOMINAL WALL: Within normal limits. RETROPERITONEUM: There is no lymphadenopathy. BLADDER: No wall thickening or mass. REPRODUCTIVE: Within normal limits. INGUINAL: There is no lymphadenopathy or hernia. MUSCULOSKELETAL: Within normal limits for patient age. CONCLUSION: 1. Cirrhosis. 2. Cholelithiasis. 3. Mild splenomegaly. 4. Nonspecific cecal/ascending colon wall thickening is chronic and less prominent than on prior stud y of April 2016, may represent colitis. Grant Mackey MD on July 06, 2016 at 4:29 Board Certified Radiologist. This report was verified electronically.
[2016-07-06] MEDS ORDERED: SODIUM CHLOR 0.9% 1000 ML INJ 1,000 ML IV SCH (05:10)
[2016-07-06] MEDS ORDERED: BISACODYL 10 MG SUPP PR PRN (05:15)
[2016-07-06] MEDS ORDERED: ACETAMINOPHEN 325 MG TAB PO PRN (05:15)
[2016-07-06] MEDS ORDERED: SODIUM CHLORIDE 0.9% FLUSH 5 ML FLUSH FLUSH PRN (05:15)
[2016-07-06] MEDS ORDERED: LORazepam 2 MG TAB PO PRN (05:15)
[2016-07-06] MEDS ORDERED: LORazepam 2 MG/ML VIAL IV PUSH PRN ×4 (05:15)
[2016-07-06] MEDS ORDERED: SENNOSIDES 8.6 MG TAB PO PRN (05:15)
[2016-07-06] MEDS ORDERED: ONDANSETRON HCL 4 MG/2 ML VIAL IVP PRN (05:15)
[2016-07-06] MEDS ORDERED: NALOXONE HCL 0.4 MG/ML AMP IV PRN (05:15)
[2016-07-06] MEDS ORDERED: SODIUM CHLORIDE 0.9% FLUSH 5 ML FLUSH IV FLUSH PRN (05:15)
[2016-07-06] MEDS ORDERED: FLUMAZENIL 0.5 MG/5 ML VIAL IV PUSH PRN (05:15)
[2016-07-06] MEDS: PANTOPRAZOLE SODIUM 40 MG VIAL IV PUSH SCH (06:14)
[2016-07-06] MEDS ORDERED: SODIUM CHLORIDE 0.9% FLUSH 5 ML FLUSH FLUSH SCH (09:00)
[2016-07-06] MEDS: SODIUM CHLORIDE 0.9% FLUSH 5 ML FLUSH IV FLUSH SCH ×2 (09:00→20:09)
[2016-07-06 09:17] LABS: BLOOD, URINE NEG (NEG); GLUCOSE,URINE NEG (NEG); KETONE, URINE NEG (NEG); NITRITE,URINE NEG (NEG); SQUAMOUS EPITHELIAL CELL URINE 3 /hpf (0-5); URINE COLOR YELLOW (YELLW/STRAW)
[2016-07-06 09:19] LABS: COMMENT (UR) CATH-CULT NOT IND; CULTURE IF INDICATED CATH CULTURE NOT IND
[2016-07-06 09:20] LABS: AMPHETAMINE, URINE NEG (NEG); BARBITURATES, URINE NEG (NEG); COCAINE, URINE NEG (NEG)
[2016-07-06] MEDS: FOLIC ACID 1 MG TAB PO SCH (09:45)
[2016-07-06] MEDS: MULTIVITAMINS/MINERALS THERAPEUTIC TAB PO SCH (09:45)
[2016-07-06] MEDS: THIAMINE HCL 100 MG TAB PO SCH (09:45)
--- NOTE | 2016-07-06 11:06 | MH ---
cc: VALERIA GERMAIN MD DATE OF ADMISSION 07/06/2016 PR[address] CARE PHYSICIAN Listed Dr. Dhaval Conley CHIEF COMPLAINT The patient apparently came to the hospital complaining of abdominal pain. HISTORY OF PRESENT ILLNESS This is a 45-year-old female with a history of alcoholism, chronic liver disease/cirrhosis who unfortunately continues to drink alcoholic and smoke cigarettes. She also has a history of drug abuse. She apparently is bipolar, she came to hospital yesterday complaining of abdominal pain. Her initial workup has been unrevealing. She was found to be tremulous and confused, somewhat agitated. She was given IV Ativan along with thiamine and folic acid. She is being admitted for further evaluation. The patient is currently lethargic, but arousable. She answers questions with simple yes and no. She is oriented to herself and then she starts mumbling. She is not able to provide any meaningful information. PAST MEDICAL HISTORY Significant for: 1. Chronic alcoholism 2. Cirrhosis of liver 3. History of portal hypertension. 4. Esophageal varices 5. History of ascites 6. History of seizure disorder. 7. History of substance abuse. 8. History of hep-C. 9. Hypothyroidism PAST SURGICAL HISTORY Significant for: 1. Tubal ligation 2. Endoscopy and banding 3. Arthroscopic right ankle surgery. 4. Right leg bone grafting 5. Previous multiple endoscopies and colonoscopies. SOCIAL HISTORY The patient is a smoke apparently smokes about one pack per day. She has a chronic alcohol use history. She apparently drinks. She apparently has drug abuse. ALLERGIES NO KNOWN DRUG ALLERGIES. FAMILY HISTORY Positive for esophageal cancer in the mother. Her sister apparently has cirrhosis also. Apparently father was an alcoholic too. REVIEW OF SYSTEMS Review of systems is very limited. The patient is unable to provide any meaningful information. She is confused, disoriented and only oriented to herself. MEDICATIONS Home medications include the followin. Rifaximine 5 mg p.o. b.i.d. 2. Ativan 1 mg q.4 h p.r.n. 3. Metoprolol 25 mg b.i.d. 4. Folic acid daily 5. Thiamine and Vitamin B daily. PHYSICAL EXAM On examination, this is a middle-aged, chronically ill-appearing, unkempt middle-aged female lying in bed. She is lethargic, but arousable. She answers simple questions. She drifts back to sleep. She mumbles. VITAL SIGNS: Upon arrival, blood pressure 179/92, pulse of 100, respiration 24, temperature 98.8, O2 sat 99%. HEAD: Normocephalic, atraumatic. EYES: Extraocular movements intact. Pupils are equal and reactive. Icterus with significant pallor. ENT: No throat congestion. No oral ulcers. The patient has noted no teeth. Ears are clear. NECK: Supple. No JVD. No lymph nodes. No bruits. CARDIOVASCULAR: S1 and S2 audible. Regular rhythm. No murmur or gallop. RESPIRATORY: Distant breath sounds, clearly faint basilar crackles. No rhonchi. ABDOMEN: Soft, protuberant, bulky, bilateral upper abdominal tenderness without guarding or rebound. No rigidity. No palpable masses. EXTREMITIES: No pedal edema. The patient has multiple areas of healing skin abrasions of bilateral upper and lower extremities, most of them are healed. A few of them are tiny and scabbed. No fresh infected appearing lesions. NEUROLOGIC: She is lethargic, but arousable. She answers simple questions and then drifts back. She has mild nystagmus. No facial asymmetry. She is moving her four extremities. Neurological examination is limited. LABORATORY DATA Sodium 140, potassium 4.1, chloride 105, bicarb 20.8, BUN of 5, creatinine 0.83, glucose 109, calcium 9.7, magnesium 1.6. ALP 212, AST 72, AST 45, total protein 10.2, albumin 3.7 elevated, lipase 118, lactic acid 2.1. White count 12.6, hemoglobin 13.4, hematocrit 38.1, platelet count of 211, MCV of 90.6, hemoglobin baseline is around 10 grams. Blood alcohol level less than three. Urine tox screen was positive for benzodiazepine. Chest x-ray was done. His portable film was negative for acute infiltrate or effusion. CT scan of the abdomen and pelvis showed a cirrhotic liver with evidence of cholelithiasis and mild splenomegaly, nonspecific cecal and ascending colon wall thickening which is chronic and appears to be less prominent when compared to prior study of April 2016. ASSESSMENT 1. Abdominal pain, etiology unclear. The patient is unable to provide more detailed information about the characteristic of the abdominal pain. 2. Confusion and agitation status post alcohol withdrawal. 3. Leukocytosis 4. Clinical dehydration 5. History of cirrhosis of the liver with a history of portal hypertension. 6. Otherwise he has ascites and had previous GI bleeding. 7. History of seizures. 8. History of bipolar disorder. 9. History of chronic smoker. PLAN The patient admitted to hospital for observation at this time. Continue thiamine and folate. Given IV fluids. Hold diuretics. Give IV Protonix. Librium for DT prophylaxis. Continue Keppra. Obtain GI consultation to further evaluate her abdominal pain. If the patient develops fever, consider obtaining blood culture. If she has diarrhea, we will check stool culture and possible C. diff, which currently she is not showing any sign of. Hold antibiotics at this point in time. Check ammonia level. Continue Rifaximine. Provide supportive care. Because of her confusion, agitation and disorientation and complex health problems, she will require inpatient care. Without appropriate care, she may go into full blown hepatic encephalopathy or may develop infection related to complications or dehydration. EXPECTED LENGTH OF STAY About three to four days. Possible discharge home when stable. MD ANNIE Fox/IVAN /8:27 AM /9:36 AM
[2016-07-06] MEDS: HYDROmorphone HCL PF 1 MG/ML VIAL IV PUSH PRN ×3 (12:07→23:56)
[2016-07-06] MEDS ORDERED: MORPHINE SULFATE 4 MG/ML INJ IV PUSH PRN (13:30)
[2016-07-06] MEDS: LACTULOSE SYRUP 20 GM/30 ML CUP PO SCH ×2 (13:51→20:09)
[2016-07-06] MEDS: cloNIDine HCL 0.1 MG TAB PO PRN (13:51)
--- NOTE | 2016-07-06 15:39 | RADRPT ---
EXAM DATE/TIME: 07/06/2016 15:04 [facility] COMPARISON: CT BRAIN W/O CONTRAST, January 05, 2016, 17:48. INDICATIONS : Altered mental status. RADIATION DOSE: 50.25 CTDIvol (mGy) MEDICAL HISTORY : Cirrhosis. Pancreatitis. Hypertension.COPD. SURGICAL HISTORY : None. ENCOUNTER: Initial ACUITY: 1 day PAIN SCALE: 0/10 LOCATION: cranial TECHNIQUE: Multiple contiguous axial images were obtained of the head. Using automated exposure control and adj ustment of the mA and/or kV according to patient size, radiation dose was kept as low as reasonably a chievable to obtain optimal diagnostic quality images. FINDINGS: CEREBRUM: The ventricles are normal for age. No evidence of midline shift, mass lesion, hemorrhage or acute in farction. No extra-axial fluid collections are seen. POSTERIOR FOSSA: The cerebellum and brainstem are intact. The 4th ventricle is midline. The cerebellopontine angle i s unremarkable. EXTRACRANIAL: The visualized portion of the orbits is intact. SKULL: The calvaria is intact. No evidence of skull fracture. CONCLUSION: No acute disease. Dc Winston MD on July 06, 2016 at 15:37 Board Certified Radiologist. This report was verified electronically.
--- NOTE | 2016-07-06 18:38 | MG ---
cc: JULIEN LANZA M.D., MOHAMMAD Lab No: Date: 07/06/16 Age: 45 Sex: F Race: REQUESTING PHYSICIAN Dr. Middleton. INDICATION An EEG was obtained on this 45-year-old patient being evaluated for dizziness, headaches, behavioral problems. MEDICATIONS 1. Ativan. 2. Vitamins. 3. Protonix. 4. Dilaudid. DESCRIPTION OF RECORD The patient is awake and asleep during the study. The EEG shows 8-10 per second alpha activity in the central and posterior head regions. There are beta rhythms centrally and frontally. The patient is asleep intermittently, often awake and asleep during this recording. The tracing remains symmetrical. Hyperventilation was not performed. Photic stimulation showed awakening but no change in the background otherwise. INTERPRETATION Probably normal predominantly asleep EEG. MD FRANCISCO JAVIER Wilcox/BJF /6:17 PM /6:30 PM
[2016-07-06] MEDS: LORazepam 1 MG TAB PO PRN (20:59)
[2016-07-07] VITALS (7 sets, daily range): BP systolic 133–183; BP diastolic 77–103; PULSE 93–114; RESP 16–22; TEMP 97.8–98.6; O2SAT 92–98
[2016-07-07] MEDS: PANTOPRAZOLE SODIUM 40 MG VIAL IV PUSH SCH (04:55)
[2016-07-07] MEDS: LORazepam 1 MG TAB PO PRN ×3 (04:56→18:54)
[2016-07-07] MEDS: HYDROmorphone HCL PF 1 MG/ML VIAL IV PUSH PRN ×3 (04:56→21:12)
[2016-07-07 06:53] LABS: BICARBONATE 28.1 MEQ/L (21.0-32.0); POTASSIUM 3.5 MEQ/L (3.5-5.1)
--- NOTE | 2016-07-07 07:12 | MB ---
cc: SKYLER ARAGON M.D., MUHAMMED N. MD DATE OF CONSULTATION 07/06/2016 REASON FOR CONSULTATION Abdominal pain, liver cirrhosis. HISTORY Ms. Murray is a 45-year-old with alcoholism, chronic liver disease, in and out of the hospital frequently. She was last seen in April at which time she had an EGD and a colonoscopy which were essentially unremarkable. She has been scoped multiple times in the past as well. She had a CT scan done on that admission and also on this admission which essentially revealed cirrhosis, splenomegaly, otherwise was unremarkable. She seems very sleepy right now during my interview, unable to provide much history. Not sure how much abdominal pain she is experiencing at this time. PAST MEDICAL HISTORY 1. Chronic alcoholism 2. Liver cirrhosis 3. Portal hypertension 4. History of ascites. 5. History of esophageal varices. 6. Substance abuse 7. Seizure disorder 8. Hepatitis C 9. Hypothyroidism PAST SURGICAL HISTORY 1. Previous EGD and colonoscopy. 2. Tubal ligation 3. Bone grafting SOCIAL HISTORY The patient is a smoker, also drinks alcohol. She also apparently uses other drugs. ALLERGIES None documented FAMILY HISTORY Esophageal cancer REVIEW OF SYSTEMS Very limited review of systems. The patient is drowsy, somewhat confused. MEDICATIONS ON ADMISSION 1. Rifaximin 2. Ativan 3. Metoprolol 4. Folic acid 5. Thiamine PHYSICAL EXAM Physical examination reveals a well nourished lady disheveled in no apparent distress. HEAD AND NECK: Icteric sclerae. CHEST: Bilateral air entry with rales. ABDOMEN: Soft, nontender. No hepatosplenomegaly. Bowel sounds are present. BACKEND TESTER: Exam is nonfocal. RECTAL: Exam deferred at this time. LABS Reveal an AST of 72, total bilirubin 1.5, lipase 118. A white cell count 12.6, hemoglobin 13.4. CT of the abdomen and pelvis reveals cirrhosis, hepatomegaly, splenomegaly. No visible ascites, nonspecific colitis. IMPRESSION Liver cirrhosis, encephalopathy RECOMMENDATIONS 1. Check ammonia levels. 2. Lactulose 30 cc. p.o. b.i.d. 3. Monitor for alcohol withdrawal. 4. Endoscopy if bleeding. We will follow with you. Thank you for this referral. MD SLIM Bowen/IVAN /12:16 PM /7:05 AM
--- NOTE | 2016-07-07 07:48 | EKG ---
Date Performed: 07/06/2016 Time Performed: 00:17:03 PTAGE: 45 years EKG: Sinus rhythm WITH SHORT HI INTERVAL POSSIBLE LEFT ATRIAL ENLARGEMENT Compared to the previous tracing sinus rate is slower BORDERLINE ECG PREVIOUS TRACING : 05/06/2016 16.25 DOCTOR: Jarrett Fleming Interpretating Date/Time 07/07/2016 07:48:08
[2016-07-07] MEDS: FOLIC ACID 1 MG TAB PO SCH (08:31)
[2016-07-07] MEDS: LACTULOSE SYRUP 20 GM/30 ML CUP PO SCH ×2 (08:31→21:11)
[2016-07-07] MEDS: MULTIVITAMINS/MINERALS THERAPEUTIC TAB PO SCH (08:31)
[2016-07-07] MEDS: THIAMINE HCL 100 MG TAB PO SCH (08:31)
[2016-07-07] MEDS: SODIUM CHLORIDE 0.9% FLUSH 5 ML FLUSH IV FLUSH SCH ×2 (08:34→21:12)
[2016-07-07] MEDS ORDERED: INFLUENZA VIRUS VACCINE (QUADRIVALENT) 0.5 ML SYR IM ONE (10:00)
[2016-07-07 10:28] LABS: AUTOMATED NEUTROPHIL # 4.1 TH/MM3 (1.8-7.7); BASOPHIL % 0.2 % (0.0-2.0); EOSINOPHIL # 0.1 TH/MM3 (0-0.4); EOSINOPHIL % 1.8 % (0.0-4.0); HEMATOCRIT 35.5 % (35.0-46.0); LYMPH % 17.6 % (9.0-44.0); LYMPHOCYTE # 1.1 TH/MM3 (1.0-4.8); MEAN CORPUSCULAR HEMOGLOBIN 31.4 PG (27.0-34.0); MEAN CORPUSCULAR HGB CONC 33.7 % (32.0-36.0); NEUT % 67.4 % (16.0-70.0); PLATELET COUNT 134 TH/MM3 (150-450); RED BLOOD COUNT 3.82 MIL/MM3 (4.00-5.30); RED CELL DISTRIBUTION WIDTH 14.5 % (11.6-17.2); WHITE BLOOD COUNT 6.1 TH/MM3 (4.0-11.0)
[2016-07-07 10:58] LABS: HEMO FLAGS AUTO DIFF
[2016-07-07 11:00] LABS: SCAN/DIFF AUTO DIFF CONFIRMED
[2016-07-07] MEDS ORDERED: ENALAPRILAT 2.5 MG/2 ML VIAL IV PUSH PRN (12:15)
[2016-07-07] MEDS: cloNIDine HCL 0.1 MG TAB PO PRN (12:41)
--- NOTE | 2016-07-07 12:54 | HHI.PR ---
Subjective Remarks awake anxiety , restless at times diet advanced, no testing today appetite fair skin bárbara with scabs on extremities and truck. (Aliza Holguin) Objective Objective Results - Vital Signs Date Time Temp Pulse Resp B/P Pulse Ox O2 Delivery O2 Flow Rate FiO2 07/07/16 08:58 99 07/07/16 08:00 98.0 96 20 172/98 92 07/07/16 04:00 98.4 100 18 144/90 97 07/07/16 00:00 98.1 96 16 149/80 95 07/06/16 20:06 98.7 98 18 153/94 94 07/06/16 20:00 105 07/06/16 18:12 103 07/06/16 18:02 94 21 07/06/16 16:00 98.6 92 12 148/87 93 07/06/16 13:54 18 07/06/16 13:00 98.6 101 12 157/101 94 I/O 07/06/16 07/06/16 07/06/16 07/07/16 07/07/16 07/07/16 07:00 15:00 23:00 07:00 15:00 23:00 Intake Total 1150 ml 2030 ml Output Total 560 ml 400 ml 1700 ml Balance -560 ml 750 ml 330 ml Intake Oral 650 ml 800 ml IV Total 500 ml 1230 ml Output Urine Total 560 ml 400 ml 1700 ml # Voids 3 # Bowel Movements 0 0 (Aliza Hloguin) Result Diagram: 07/07/16 1016 07/07/16 0527 ROS General: Fatigue, Weakness, Other (10 point ROS done, limited, but answers simple questions.) Pulmonary: Cough (prn), SOB, Wheezing (exertional) Neuro/MS: Other (mild AMS) (Aliza Holguin) Physical Exam Physical Exam PHYSICAL EXAMINATION GENERAL: This is a chronic ill female occational anxiety She is awake, answering simple questions HEAD: Normocephalic without any lesion or mass noted. Facial features appear symmetric. OROPHARYNGEAL: Oropharynx without erythema or edema., dry NECK: Supple. No nuchal rigidity or lymphadenopathy. Trachea midline without deviation. CARDIAC: Regular rhythm, regular rate, S1 and S2 Murmur none LUNGS: diminished to auscultation bilaterally. low volumes No use of accessory muscles on inspiration or expiration. ABDOMEN: , round, taut, nontender, Bowel sounds are heard in all four quadrants. No rebound. No guarding. EXTREMITIES: no edema. Pulses equal bilateral. NEUROLOGICAL: Patient mood and affect anxious, SKIN:Warm, dry. multiple sores, scabs, picking at sores, trunk and extremities. itches Objective Remarks I scratch these sores sometimes. Cant help it. (Aliza Holguin) A/P Assessment and Plan HTN, uncontrolled Ordered Vasotec IV, BP180> or dial 100> Abdominal pain wax and wan., hx of cirrhosis, arsen, 73, continue Lactulose, monitor withdrawal and encephalopathy. NA low borderline, diet advanced, no N&V GI consult, appreciate, medical management, scope if patient has bleeding episodes. Confusion and agitation status post alcohol withdrawal, Ativan Prn, still having some mild AMS Leukocytosis, resolved this am. Clinical dehydration, given IVF, gentle hydration History of seizures., Keppra History of bipolar disorder. History of chronic smoker. Medical management vitals, labs reviewed, K+ 3.5 , Will recheck labs am, advanced diet if no N&V. Discharge Planning initiated. Discussed With: Nurse (Rn), Family (patient), Other (Dr. Middleton, seen on his behalf) (Aliza Holguin) Assessment and Plan pt is seen & examined clinically much better ,awake & responsive CT head neg ammonia level noted Lactulose/resume rifaximin start IV lasix/aldactone resume BB consult IR for Therapeutic/Dx paracentesis GI input appreciated d/w PT d/w Aliza feng labs ' will f/u (Dre Middleton MD) Aliza Holguin Jul 07, 2016 12:53 Dre Middleton MD Jul 07, 2016 18:00
--- NOTE | 2016-07-07 14:12 | HHI.GIFU ---
Subjective Remarks Resting in bed. No active bleeding. Tolerating diet- wants this advanced. ( Lori Man) Objective Vitals I&O Vital Signs Date Time Temp Pulse Resp B/P Pulse Ox O2 Delivery O2 Flow Rate FiO2 07/07/16 08:58 99 07/07/16 08:00 98.0 96 20 172/98 92 07/07/16 04:00 98.4 100 18 144/90 97 07/07/16 00:00 98.1 96 16 149/80 95 07/06/16 20:06 98.7 98 18 153/94 94 07/06/16 20:00 105 07/06/16 18:12 103 07/06/16 18:02 94 21 07/06/16 16:00 98.6 92 12 148/87 93 I/O 07/06/16 07/06/16 07/06/16 07/07/16 07/07/16 07/07/16 07:00 15:00 23:00 07:00 15:00 23:00 Intake Total 1150 ml 2030 ml Output Total 560 ml 400 ml 1700 ml Balance -560 ml 750 ml 330 ml Intake Oral 650 ml 800 ml IV Total 500 ml 1230 ml Output Urine Total 560 ml 400 ml 1700 ml # Voids 3 # Bowel Movements 0 0 Laboratory Laboratory Tests Test 07/07/16 07/07/16 05:27 10:16 Sodium Level 142 Potassium Level 3.5 Chloride Level 108 Carbon Dioxide Level 28.1 Anion Gap 6 Blood Urea Nitrogen 2 Creatinine 0.68 Estimat Glomerular Filtration 93 Rate Random Glucose 105 Calcium Level 8.2 White Blood Count 6.1 Red Blood Count 3.82 Hemoglobin 12.0 Hematocrit 35.5 Mean Corpuscular Volume 93.0 Mean Corpuscular Hemoglobin 31.4 Mean Corpuscular Hemoglobin 33.7 Concent Red Cell Distribution Width 14.5 Platelet Count 134 Mean Platelet Volume 9.0 Neutrophils (%) (Auto) 67.4 Lymphocytes (%) (Auto) 17.6 Monocytes (%) (Auto) 13.0 Eosinophils (%) (Auto) 1.8 Basophils (%) (Auto) 0.2 Neutrophils # (Auto) 4.1 Lymphocytes # (Auto) 1.1 Monocytes # (Auto) 0.8 Eosinophils # (Auto) 0.1 Basophils # (Auto) 0.0 CBC Comment AUTO DIFF Differential Comment AUTO DIFF CONFIRMED Imaging Last Impressions Abdomen/Pelvis CT 07/06/16 0354 Signed Impressions: Service Date/Time: Wednesday, July 06, 2016 04:16 - CONCLUSION: 1. Cirrhosis. 2. Cholelithiasis. 3. Mild splenomegaly. 4. Nonspecific cecal/ascending colon wall thickening is chronic and less prominent than on prior study of April 2016, may represent colitis. Grant Mackey MD Chest X-Ray 07/06/16 0007 Signed Impressions: Service Date/Time: Wednesday, July 06, 2016 00:17 - CONCLUSION: No acute cardiopulmonary disease identified. Grant Mackey MD Head CT 07/06/16 0000 Signed Impressions: Service Date/Time: Wednesday, July 06, 2016 15:04 - CONCLUSION: No acute disease. Dc Winston MD Physical Exam HEENT: Normocephalic; atraumatic; no jaundice. CHEST: CTA CARDIAC: RRR ABDOMEN: Soft, nondistended, nontender; hepatosplenomegaly; bowel sounds are present in all four quadrants. EXTREMITIES: No clubbing, cyanosis, or edema. SKIN: Multiple scabs to face and BUE. BRANCH SALES MANAGER: No focal deficits; alert and oriented times three. (Lori Man) Assessment and Plan Plan ASSESSMENT: - Liver cirrhosis with elevated LFTs. Abdomen/Pelvis CT (07/06/16)----> 1. Cirrhosis. 2. Cholelithiasis. 3. Mild splenomegaly. 4. Nonspecific cecal/ascending colon wall thickening is chronic and less prominent than on prior study of April 2016, may represent colitis. LFT yesterday with T. Bili 1.5, AST 72, ALT 45, Alk Phosph 212. - Hepatic encephalopathy. Ammonia 73. Lactulose. - Leukocytosis. Improved. PLAN: - Heart healthy diet - Cont. Lactulose - Cont. PPI - Monitor LFTs - Supportive care - Further recommendations to follow based on results of above - Pt seen and examined by Dr. Aldana and myself and this note is written on his behalf (Lori Man) Physician Comments Seen and examined with [facility], advance diet. Monitor labs (Antonette Aldana MD) Lori Man Jul 07, 2016 14:12 Antonette Aldana MD Jul 07, 2016 20:53
[2016-07-07] MEDS: FUROSEMIDE 40 MG/4 ML VIAL IV PUSH SCH (18:54)
[2016-07-07] MEDS: SPIRONOLACTONE 50 MG TAB PO SCH (18:54)
[2016-07-07] MEDS: DEXT 5%-NACL 0.45% 1000 ML INJ 1,000 ML IV SCH (19:30)
[2016-07-07] MEDS: RIFAXIMIN 550 MG TAB PO SCH (21:11)
[2016-07-07] MEDS: METOPROLOL TARTRATE 25 MG TAB PO SCH (21:11)
[2016-07-08] MEDS: LORazepam 1 MG TAB PO PRN ×3 (00:03→10:25)
[2016-07-08 00:48] VITALS: BP 115/66; PULSE 91; RESP 18; TEMP 98.5; O2SAT 95
[2016-07-08 04:24] VITALS: BP 121/71; PULSE 81; RESP 20; TEMP 99.1; O2SAT 99
[2016-07-08] MEDS: PANTOPRAZOLE SODIUM 40 MG VIAL IV PUSH SCH (05:26)
[2016-07-08] MEDS: HYDROmorphone HCL PF 1 MG/ML VIAL IV PUSH PRN (05:30)
[2016-07-08] MEDS: DEXT 5%-NACL 0.45% 1000 ML INJ 1,000 ML IV SCH (05:32)
[2016-07-08 08:00] VITALS: BP_SYST 117; BP_SYST 118; BP_DIAS 64; BP_DIAS 65; PULSE 50; PULSE 88; RESP 20; TEMP 97.4; O2SAT 94; O2SAT 98
[2016-07-08 08:08] LABS: HEMATOCRIT 33.3 % (35.0-46.0); MEAN CELL VOLUME 90.1 FL (80.0-100.0); MEAN CORPUSCULAR HEMOGLOBIN 31.3 PG (27.0-34.0); MEAN CORPUSCULAR HGB CONC 34.8 % (32.0-36.0); PLATELET COUNT 149 TH/MM3 (150-450); REVIEW FLAG FINAL; WHITE BLOOD COUNT 6.7 TH/MM3 (4.0-11.0)
[2016-07-08 08:12] LABS: INTERNATIONAL NORMALIZED RATIO 1.3 RATIO
[2016-07-08 08:46] LABS: BICARBONATE 30.9 MEQ/L (21.0-32.0); POTASSIUM 3.3 MEQ/L (3.5-5.1)
[2016-07-08] MEDS ORDERED: FOLIC ACID 1 MG TAB PO SCH (09:00)
[2016-07-08] MEDS ORDERED: THIAMINE HCL 100 MG TAB PO SCH ×2 (09:00)
[2016-07-08 09:50] VITALS: PULSE 94
[2016-07-08] MEDS: METOPROLOL TARTRATE 25 MG TAB PO SCH (10:23)
[2016-07-08] MEDS: MULTIVITAMINS/MINERALS THERAPEUTIC TAB PO SCH (10:24)
[2016-07-08] MEDS: RIFAXIMIN 550 MG TAB PO SCH (10:25)
[2016-07-08] MEDS: SPIRONOLACTONE 50 MG TAB PO SCH (10:25)
[2016-07-08] MEDS: LACTULOSE SYRUP 20 GM/30 ML CUP PO SCH (10:26)
[2016-07-08 11:31] VITALS: O2SAT 98
--- NOTE | 2016-07-08 11:57 | RADRPT ---
EXAM DATE/TIME: 07/08/2016 11:04 [facility] COMPARISON: US ABDOMEN - LOWER LIMITED, February 02, 2016, 14:10. INDICATIONS : Ascites. MEDICAL HISTORY : Hypertension. Chronic obstructive pulmonary disease. Gastroesophageal reflux di sease. Thyroid disease. Seizures. Anticoagulant therapy. Emphysema. Esophageal varices. Diverticuliti s. Pancreatitis. Ulcer. Borderline diabetes. Cirrhosis. Hepatitis A and C. Cocaine and meth use. An emia. MRSA, ankle. SURGICAL HISTORY : Esophageal varices banding. Cervical freeze. Orthopedic surgery, rig hi p, leg and ankle. ENCOUNTER: Subsequent ACUITY: 1 day PAIN SCORE: 0/10 LOCATION: Abdomen. AREA EVALUATED: Abdomen and pelvis. FINDINGS: Imaging of the abdomen and pelvis was performed to evaluate for ascites for possible paracentesis. CONCLUSION: No ascites is evident. Iban Faria MD FACR on July 08, 2016 at 11:54 Board Certified Radiologist. This report was verified electronically.
[2016-07-08] MEDS: FUROSEMIDE 40 MG/4 ML VIAL IV PUSH SCH (12:48)
[2016-07-08] MEDS: SODIUM CHLORIDE 0.9% FLUSH 5 ML FLUSH IV FLUSH SCH (12:49)
--- NOTE | 2016-07-08 14:04 | HHI.PR ---
Subjective Remarks awake anxiety , restless at times up in rm skin bárbara with scabs on extremities and truck. Objective Objective Results - Vital Signs Date Time Temp Pulse Resp B/P Pulse Ox O2 Delivery O2 Flow Rate FiO2 07/08/16 08:00 97.4 88 20 118/64 94 07/08/16 04:24 99.1 81 20 121/71 99 07/08/16 00:48 98.5 91 18 115/66 95 07/07/16 20:00 110 07/07/16 20:00 97.8 114 18 133/77 98 07/07/16 16:00 98.6 98 22 150/88 97 I/O 07/07/16 07/07/16 07/07/16 07/08/16 07/08/16 07/08/16 07:00 15:00 23:00 07:00 15:00 23:00 Intake Total 2030 ml 480 ml 840 ml Output Total 1700 ml Balance 330 ml 480 ml 840 ml Intake Oral 800 ml 480 ml 840 ml IV Total 1230 ml Output Urine Total 1700 ml # Voids 2 9 # Bowel Movements 0 0 1 Result Diagram: 07/08/16 0736 07/08/16 0736 A/P Assessment and Plan HTN, uncontrolled Ordered Vasotec IV, BP180> or dial 100>, Abdominal pain wax and wan., hx of cirrhosis, ammonia, slow trend down. GI consult, appreciate, medical management, Leukocytosis monitor Thrombocytopenia, mild resolving INR 1.3 Hypokalemia , 25 meq dose X 1, bmp in am. Clinical dehydration, given IVF, gentle hydration History of seizures., Keppra History of bipolar disorder. History of chronic smoker. Medical management patient up walking around. Evaled labs, chart, went back to check on, patient gone. Nurse looking for her also. Dr. Middleton aware. Security called, At this time, appears to be AMA. Instructed nurse to call if pt. is found. Discharge Planning initiated. Discussed With: Nurse (Rn), Family (patient), Other (Dr. Middleton, seen on his behalf) Aliza Holguin Jul 08, 2016 14:04 GI consult, appreciate, medical management, scope if patient has bleeding episodes. Confusion and agitation status post alcohol withdrawal, Ativan Prn, still having some mild AMS Leukocytosis, resolved this am. monitor Thrombocytopenia, mild resolving INR 1.3 Hypokalemia , 25 meq dose X 1, bmp in am. Clinical dehydration, given IVF, gentle hydration History of seizures., Keppra History of bipolar disorder. History of chronic smoker. Medical management advanced diet if no N&V. Discharge Planning initiated. Discussed With: Nurse (Rn), Family (patient), Other (Dr. Middleton, seen on his behalf) Aliza Holguin Jul 08, 2016 14:04
[2016-07-08] MEDS ORDERED: POTASSIUM CHLORIDE 25 MEQ EFFERVESCENT TAB PO ONE (14:15)
--- NOTE | 2016-07-08 18:44 | PD.AMA ---
Against Medical Advice Note Discharge Disposition: Against Medical Advice Pt Condition on Discharge: Guarded Recommended Treatment Course monitoring for any exacerbation of ammonia elevation, encephalopathy, hypokalemia, nutritional needs, thrombocytopenia.. Patient has multimedical comobibid conditions which need medical management. AMA Statement Patient Debra Murray has decided to leave the hospital against medical advice. This patient has the capacity to refuse care and understands the risks of leaving, including permanent disability and/or , and has had an opportunity to ask questions about her condition. The patient has been informed that she may return for care at any time, and follow up has been arranged/ advised. Aliza Holguin Jul 08, 2016 18:44
== END 2016-07-08 13:00 | disposition left against medical advice (07) | DRG 433 ==
LOC: NEPE 23:12 → NEDA 07-06 05:00 → OBSVTOIN 07-06 07:05 → NEDH 07-06 09:18 → N04A 07-06 12:29
PROVIDERS: ADMIT Specialist; ATTEND Specialist
DX: K70.31 Alcoholic cirrhosis of liver with ascites (principal); K76.6 Portal hypertension; D69.6 Thrombocytopenia, unspecified; J44.9 Chronic obstructive pulmonary disease, unspecified; D64.9 Anemia, unspecified; E86.0 Dehydration; I10 Essential (primary) hypertension; E03.9 Hypothyroidism, unspecified; F41.9 Anxiety disorder, unspecified; F31.9 Bipolar disorder, unspecified; K21.9 Gastro-esophageal reflux disease without esophagitis; F17.210 Nicotine dependence, cigarettes, uncomplicated; E87.6 Hypokalemia; F10.20 Alcohol dependence, uncomplicated
CPT/HCPCS: 70450; 71010; 74177; 76705; 80048; 80053; 80307; 81001; 82140; 82948; 83605; 83690; 83735; 84703; 85025; 85027; 85610; 86140; 93005; 95819; 96361; 96365; 96375; 96376; C9113; J1170; J1940; J2060; J2270; J2405; J2543; J7030; J7040; Q9967

== ENCOUNTER 2016-09-17 18:25 | Emergency (ER) | payer OTHER ==
[~2016-09-17] VITALS: Ht 154.9 cm; Wt 60.0 kg
[~2016-09-17 18:25] MED LIST changes: -CHLO25CA2 PO
[2016-09-17 18:27] VITALS: BP 137/84; PULSE 66; RESP 28; TEMP 98.2; O2SAT 100
[2016-09-17] MEDS ORDERED: TIZA4TAB PO (19:01)
[2016-09-17] MEDS ORDERED: ZOFR4TAB PO (19:01)
[2016-09-17] MEDS ORDERED: LEVO25TA4 PO (19:01)
[2016-09-17] MEDS ORDERED: FURO20TA PO (19:01)
[2016-09-17] MEDS ORDERED: LACT10SO PO (19:01)
[2016-09-17 19:04] VITALS: BP 159/77; PULSE 69; RESP 20; O2SAT 100
--- NOTE | 2016-09-17 19:06 | PD ---
HPI Chief Complaint: GI Complaint Time Seen by Provider: 19:05 Travel History International Travel<30 days: No Contact w/Intl Traveler<30days: No Traveled to known affect area: No History of Present Illness HPI 46-year-old female came to the emergency room with history of abdominal pain. Patient says that she has history of cirrhosis secondary to hepatitis C. She has history of varices and ascites and her last paracentesis was 7 months ago. She was supposed to see GI specialist Dr. Adkins but never did since she was drinking alcohol during that time. She was also doing cocaine. 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 However before past few weeks she has noticed that her abdomen is slowly getting distended and it hurts. She came here with the expectation that she would get admitted and the fluid will be taken out. She says that's what happened in the previous few times. She also has been complaining of some "coffee ground" color stools for past few days because of "internal bleeding". No history of vomiting or fever. Vital signs stable in triage. Patient is a smoker currently. She says she is trying to quit smoking and would need Ativan to stop her withdrawal. PFSH Past Medical History Narrative Medical List of her past medical, surgical, social and family history is reviewed from the nursing note. Hx Anticoagulant Therapy: Yes (ASA) Anemia: Yes Arthritis: Yes Asthma: Yes Autoimmune Disease: No Blood Disorders: No Bipolar Disorder: Yes Anxiety: Yes Depression: No Heart Rhythm Problems: Yes (QUESTIONABLE MURMUR) Cancer: No Cardiovascular Problems: Yes (HTN) High Cholesterol: No Chemotherapy: No Chest Pain: No Congestive Heart Failure: No Cirrhosis: Yes COPD: Yes Cerebrovascular Accident: No Diabetes: Yes (BORDERLINE) Patient Takes Glucophage: No Diminished Hearing: No Diverticulitis: Yes Endocrine: Yes Gastrointestinal Disorders: Yes ("PROBLEMS WITH LIVER", ESOPHAGEAL VARICIES) GERD: Yes Genitourinary: No Headaches: Yes Hepatitis: Yes (A&C) Hiatal Hernia: Yes Heparin Induced Thrombocytopen: No Hypertension: Yes Immune Disorder: No Implanted Vascular Access Dvce: No Kidney Stones: No Musculoskeletal: Yes Neurologic: No Psychiatric: Yes (BIPOLAR) Reproductive: No Respiratory: Yes (COPD) Integumentary: Yes Immunizations Current: No Migraines: No Pancreatitis: Yes Radiation Therapy: No Renal Failure: No Seizures: Yes Sickle Cell Disease: No Sleep Apnea: No Thyroid Disease: Yes Ulcer: Yes ?: Not Menopausal: Yes : 4 Para: 3 : 1 Tubal Ligation: Yes Past Surgical History Abdominal Surgery: Yes (ESOPHAGEAL VARICES WITH BANDING; paracentesis) AICD: No Arteriovenous Shunt: No Cardiac Surgery: No Ear Surgery: No Endocrine Surgery: No Eye Surgery: No Genitourinary Surgery: No Gynecologic Surgery: Yes (CERVICAL FREEZE) Insulin Pump: No Joint Replacement: No Neurologic Surgery: No Oral Surgery: Yes (ALL TEETH REMOVED) Pacemaker: No Thoracic Surgery: No Other Surgery: Yes (ANTHROSCOPIC RIGHT ANKLE,FRACTURE RIGHT LEG,BONE GRAPH.) Social History Alcohol Use: Yes (abuse) Tobacco Use: Yes Substance Use: Yes (COCAINE, METH PER HX; alcohol) Allergies-Medications (Allergen,Severity, Reaction): Coded Allergies: *MDRO Multi-Drug Resistant Organism (Verified Adverse Reaction, Unknown, ) 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) Comments List of her allergies reviewed from the nursing note. Reported Meds & Prescriptions Reported Meds & Active Scripts Active Metoprolol Tartrate 25 Mg Tab 25 Mg PO BID Reported Tizanidine (Tizanidine HCl) 4 Mg Tab 4 Mg PO TID Levothyroxine (Levothyroxine Sodium) Unknown Strength Tab 1 Tab PO DAILY Zofran (Ondansetron HCl) Unknown Strength Tab 1 Tab PO Q6HR PRN Furosemide Unknown Strength Tab 1 Tab PO DAILY Lactulose Liq (Lactulose) 10 Gm/15 Ml Soln 15 Ml PO BID Narrative Medication List of her home medications reviewed from the nursing note. Review of Systems Except as stated in HPI: all other systems reviewed are Neg Physical Exam Narrative GENERAL: Awake, alert, no obvious distress SKIN: Focused skin assessment warm/dry. HEAD: Atraumatic. Normocephalic. EYES: Pupils equal and round. No scleral icterus. No injection or drainage. ENT: No nasal bleeding or discharge. Mucous membranes pink and moist. NECK: Trachea midline. No JVD. CARDIOVASCULAR: Regular rate and rhythm. No murmur appreciated. RESPIRATORY: No accessory muscle use. Clear to auscultation. Breath sounds equal bilaterally. GASTROINTESTINAL: Abdomen soft, distended and diffusely tender on palpation. Hepatic and splenic margins not palpable. MUSCULOSKELETAL: No obvious deformities. No clubbing. No cyanosis. No edema. NEUROLOGICAL: Awake and alert. No obvious cranial nerve deficits. Motor grossly within normal limits. Normal speech. PSYCHIATRIC: Appropriate mood and affect; insight and judgment normal. Data Data Last Documented VS Vital Signs Date Time Temp Pulse Resp B/P Pulse Ox O2 Delivery O2 Flow Rate FiO2 09/17/16 19:04 69 20 159/77 100 Room Air 09/17/16 18:27 98.2 Orders Complete Blood Count With Diff (09/17/16 19:32) Comprehensive Metabolic Panel (09/17/16 19:32) Lipase (09/17/16 19:32) Prothrombin Time / Inr (Pt) (09/17/16 19:32) Urinalysis - C+S If Indicated (09/17/16 19:32) Iv Access Insert/Monitor (09/17/16 19:32) Ecg Monitoring (09/17/16 19:32) Oximetry (09/17/16 19:32) Sodium Chloride 0.9% Flush (Ns Flush) (09/17/16 19:45) Lactulose Liq (Lactulose Liq) (09/17/16 19:45) Electrocardiogram (09/17/16 18:50) Labs Laboratory Tests Test 09/17/16 09/17/16 19:30 19:50 White Blood Count 8.1 TH/MM3 Red Blood Count 3.93 MIL/MM3 Hemoglobin 11.3 GM/DL Hematocrit 33.0 % Mean Corpuscular Volume 83.9 FL Mean Corpuscular Hemoglobin 28.8 PG Mean Corpuscular Hemoglobin 34.3 % Concent Red Cell Distribution Width 16.0 % Platelet Count 282 TH/MM3 Mean Platelet Volume 10.0 FL Neutrophils (%) (Auto) 62.4 % Lymphocytes (%) (Auto) 23.0 % Monocytes (%) (Auto) 11.5 % Eosinophils (%) (Auto) 2.2 % Basophils (%) (Auto) 0.9 % Neutrophils # (Auto) 5.1 TH/MM3 Lymphocytes # (Auto) 1.9 TH/MM3 Monocytes # (Auto) 0.9 TH/MM3 Eosinophils # (Auto) 0.2 TH/MM3 Basophils # (Auto) 0.1 TH/MM3 CBC Comment DIFF FINAL Differential Comment Prothrombin Time 11.8 SEC Prothromb Time International 1.1 RATIO Ratio Sodium Level 137 MEQ/L Potassium Level 3.5 MEQ/L Chloride Level 102 MEQ/L Carbon Dioxide Level 28.0 MEQ/L Anion Gap 7 MEQ/L Blood Urea Nitrogen 5 MG/DL Creatinine 0.91 MG/DL Estimat Glomerular Filtration 66 ML/MIN Rate Random Glucose 65 MG/DL Calcium Level 9.1 MG/DL Total Bilirubin 0.3 MG/DL Aspartate Amino Transf 56 U/L (AST/SGOT) Alanine Aminotransferase 45 U/L (ALT/SGPT) Alkaline Phosphatase 159 U/L Total Protein 9.6 GM/DL Albumin 3.4 GM/DL Lipase 196 U/L Urine Color LIGHT-YELLOW Urine Turbidity CLEAR Urine pH 6.5 Urine Specific [place] 1.003 Urine Protein NEG mg/dL Urine Glucose (UA) NEG mg/dL Urine Ketones NEG mg/dL Urine Occult Blood NEG Urine Nitrite NEG Urine Bilirubin NEG Urine Urobilinogen LESS THAN 2.0 MG/DL Urine Leukocyte Esterase TRACE Urine WBC 2 /hpf Urine Squamous Epithelial 3 /hpf Cells Microscopic Urinalysis Comment CULT NOT INDICATED MDM Medical Decision Making Medical Screen Exam Complete: Yes Emergency Medical Condition: Yes Medical Record Reviewed: Yes Differential Diagnosis Cirrhosis, ascites, peritonitis Narrative Course 8:30 PM her stool Hemoccult was negative. I let the patient know that Ativan is not a treatment for nicotine withdrawal. Plus with her poorly functioning liver Ativan for any other benzodiazepine would be a poor choice since it is metabolized from liver. She would get blood test done as well as CAT scan and case will be taken further based on the test report. She told me that she did not take her lactulose this morning or this evening and I ordered by mouth lactulose for her. Patient said her last bowel movement was yesterday. However I was told not to long ago that patient did not want to stay and took her IV out and wanted to leave. She is in full capacity to make decisions for herself. I did not get a chance to speak with the patient. Procedures EKG Prior to Arrival: No HemaPrompt Point of Care Internal Pos. & Neg. Controls: Passed Fecal Specimen Occult Blood: Negative Diagnosis Primary Impression: Abdominal pain Qualified Code: R10.9 - Abdominal pain, unspecified location Disposition: 07 AGAINST MEDICAL ADVICE Condition: Serious Noelle Rubio MD September 17, 2016 19:06
[2016-09-17] MEDS ORDERED: LACTULOSE SYRUP 20 GM/30 ML CUP PO ONE (19:45)
[2016-09-17] MEDS ORDERED: SODIUM CHLORIDE 0.9% FLUSH 10 ML FLUSH IV FLUSH PRN (19:45)
[2016-09-17 20:21] LABS: INTERNATIONAL NORMALIZED RATIO 1.1 RATIO; PROTHROMBIN TIME - PATIENT 11.8 SEC (9.8-11.6)
[2016-09-17 20:28] LABS: AUTOMATED NEUTROPHIL # 5.1 TH/MM3 (1.8-7.7); BASOPHIL # 0.1 TH/MM3 (0-0.2); BASOPHIL % 0.9 % (0.0-2.0); EOSINOPHIL # 0.2 TH/MM3 (0-0.4); EOSINOPHIL % 2.2 % (0.0-4.0); HEMO FLAGS DIFF FINAL; LYMPHOCYTE # 1.9 TH/MM3 (1.0-4.8); MEAN CELL VOLUME 83.9 FL (80.0-100.0); MEAN CORPUSCULAR HEMOGLOBIN 28.8 PG (27.0-34.0); MEAN CORPUSCULAR HGB CONC 34.3 % (32.0-36.0); MONO % 11.5 % (0.0-8.0); NEUT % 62.4 % (16.0-70.0); PLATELET COUNT 282 TH/MM3 (150-450); RED BLOOD COUNT 3.93 MIL/MM3 (4.00-5.30); WHITE BLOOD COUNT 8.1 TH/MM3 (4.0-11.0)
[2016-09-17 20:40] LABS: ANION GAP 7 MEQ/L (5-15); AST (GOT) 56 U/L (15-37); BLOOD UREA NITROGEN 5 MG/DL (7-18); CHLORIDE 102 MEQ/L (98-107); GLOMERULAR FILTRATION RATE 66 ML/MIN (>89); POTASSIUM 3.5 MEQ/L (3.5-5.1); SODIUM (NA) 137 MEQ/L (136-145)
[2016-09-17 20:44] LABS: BLOOD, URINE NEG (NEG); COMMENT (UR) CULT NOT INDICATED; CULTURE IF INDICATED CULT NOT INDICATED; GLUCOSE,URINE NEG (NEG); KETONE, URINE NEG (NEG); NITRITE,URINE NEG (NEG); PH, URINE 6.5 (5.0-8.5); SQUAMOUS EPITHELIAL CELL URINE 3 /hpf (0-5); URINE COLOR LIGHT-YELLOW (YELLW/STRAW)
[2016-09-17 20:48] LABS: ALKALINE PHOSPHATASE 159 U/L (45-117); ALT (GPT) 45 U/L (10-53); TOTAL BILIRUBIN ADULT 0.3 MG/DL (0.2-1.0)
--- NOTE | 2016-09-18 16:49 | EKG ---
Date Performed: 09/17/2016 Time Performed: 18:50:06 PTAGE: 46 years EKG: Sinus rhythm NORMAL ECG INTERPRETATION BASED ON A DEFAULT AGE OF 38 YEARS Since PREVIOUS TRACING 07/06/2016, no significant change. PREVIOUS TRACIN07/06/2016 00.17.0 3 DOCTOR: Vance Buck Interpretating Date/Time 09/18/2016 16:47:02
== END 2016-09-17 20:10 | disposition left against medical advice (07) ==
LOC: NEPE 18:25
DX: R10.9 Unspecified abdominal pain (principal); K74.60 Unspecified cirrhosis of liver; B19.20 Unspecified viral hepatitis C without hepatic coma; I10 Essential (primary) hypertension; Z72.0 Tobacco use
CPT/HCPCS: 80053; 81001; 83690; 85025; 85610; 93005; 99284

== ENCOUNTER 2016-10-07 18:14 | Emergency (ER) | payer OTHER ==
[~2016-10-07] VITALS: Ht 154.9 cm; Wt 70.0 kg
[~2016-10-07 18:14] MED LIST changes: -FOLI1TAB4 PO; +FURO20TA PO; +LACT10SO PO; +LEVO25TA4 PO; -LORA1TAB12 PO; +TIZA4TAB PO; -VITA100T2 PO; -XIFA550T4 PO; +ZOFR4TAB PO
[2016-10-07 18:17] VITALS: BP 107/54; PULSE 71; RESP 18; TEMP 99.4; O2SAT 95
--- NOTE | 2016-10-07 18:22 | PD ---
Physical Exam Time Seen by Provider: 18:21 Narrative 46yo F c/o R sided abd pain since yesterday. Subjective fever last night. Denied vomiting, diarrhea, constipation. Denies ETOH or drug use in 60 days. Patient seen in triage. VS reviewed. Awaiting bed placement. MDM Supervised Visit with BESS: Brook Gaona Oct 07, 2016 18:22
[2016-10-07] MEDS ORDERED: SPIR50TA PO (20:06)
[2016-10-07] MEDS ORDERED: LEVE500 PO (20:06)
[2016-10-07] MEDS ORDERED: BUSP15TA PO (20:06)
[2016-10-07] MEDS ORDERED: FOLI1CAP7 PO (20:06)
--- NOTE | 2016-10-07 20:40 | PD ---
HPI Chief Complaint: Abdominal Pain Time Seen by Provider: 20:00 Travel History International Travel<30 days: No Contact w/Intl Traveler<30days: No Traveled to known affect area: No History of Present Illness HPI 46yo F with PMH of cirrhosis, hepatitis, GI bleed, COPD presents to the ED with c/o right sided abdominal pain for 2 days. Pt states it is constant, mainly on right but sometimes radiates to the left side as well. +Nausea. [place] warm yesterday but no thermometer so does not know if she had fever. Took acetaminophen yesterday. Denies any vomiting, urinary complaints, focal weakness or numbness. Pt states while lying down she was feeling sob for the last 1.5 hours. Thinks it is her abdomen which is distended. Denies any chest pain. PFSH Past Medical History Hx Anticoagulant Therapy: Yes (ASA) Anemia: Yes Arthritis: Yes Asthma: Yes Autoimmune Disease: No Blood Disorders: No Bipolar Disorder: Yes Anxiety: Yes Depression: No Heart Rhythm Problems: Yes (QUESTIONABLE MURMUR) Cancer: No Cardiovascular Problems: Yes (HTN) High Cholesterol: No Chemotherapy: No Chest Pain: No Congestive Heart Failure: No Cirrhosis: Yes COPD: Yes Cerebrovascular Accident: No Diabetes: Yes (BORDERLINE) Patient Takes Glucophage: No Diminished Hearing: No Diverticulitis: Yes Endocrine: Yes Gastrointestinal Disorders: Yes ("PROBLEMS WITH LIVER", ESOPHAGEAL VARICIES) GERD: Yes Genitourinary: No Headaches: Yes Hepatitis: Yes (A&C) Hiatal Hernia: Yes Heparin Induced Thrombocytopen: No Hypertension: Yes Immune Disorder: No Implanted Vascular Access Dvce: No Kidney Stones: No Musculoskeletal: Yes Neurologic: No Psychiatric: Yes (BIPOLAR) Reproductive: No Respiratory: Yes (COPD) Integumentary: Yes Immunizations Current: No Migraines: No Pancreatitis: Yes Radiation Therapy: No Renal Failure: No Seizures: Yes Sickle Cell Disease: No Sleep Apnea: No Thyroid Disease: Yes Ulcer: Yes ?: Not Menopausal: Yes : 4 Para: 3 : 1 Tubal Ligation: Yes Past Surgical History Abdominal Surgery: Yes (ESOPHAGEAL VARICES WITH BANDING; paracentesis) AICD: No Arteriovenous Shunt: No Cardiac Surgery: No Ear Surgery: No Endocrine Surgery: No Eye Surgery: No Genitourinary Surgery: No Gynecologic Surgery: Yes (CERVICAL FREEZE) Insulin Pump: No Joint Replacement: No Neurologic Surgery: No Oral Surgery: Yes (ALL TEETH REMOVED) Pacemaker: No Thoracic Surgery: No Other Surgery: Yes (ANTHROSCOPIC RIGHT ANKLE,FRACTURE RIGHT LEG,BONE GRAPH.) Social History Alcohol Use: No (2 mos sober) Tobacco Use: Yes (1 ppd) Substance Use: Yes (COCAINE, METH PER HX; alcohol) Allergies-Medications (Allergen,Severity, Reaction): Coded Allergies: *MDRO Multi-Drug Resistant Organism (Verified Adverse Reaction, Unknown, ) 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) Reported Meds & Prescriptions Reported Meds & Active Scripts Active Metoprolol Tartrate 25 Mg Tab 25 Mg PO BID Reported Keppra (Levetiracetam) 500 Mg Tab 500 Mg PO BID Buspirone (Buspirone HCl) 15 Mg Tab 15 Mg PO BID Folic Acid 800 Mcg Cap 800 Mcg PO DAILY Spironolactone 50 Mg Tab 50 Mg PO DAILY Tizanidine (Tizanidine HCl) 4 Mg Tab 4 Mg PO TID Levothyroxine (Levothyroxine Sodium) Unknown Strength Tab 1 Tab PO DAILY Zofran (Ondansetron HCl) Unknown Strength Tab 1 Tab PO Q6HR PRN Furosemide Unknown Strength Tab 1 Tab PO DAILY Lactulose Liq (Lactulose) 10 Gm/15 Ml Soln 15 Ml PO BID Review of Systems Except as stated in HPI: all other systems reviewed are Neg Physical Exam Narrative GENERAL: 46yo F not in distress. SKIN: Focused skin assessment warm/dry. HEAD: Atraumatic. Normocephalic. EYES: Pupils equal and round. No scleral icterus. No injection or drainage. CARDIOVASCULAR: Regular rate and rhythm. No murmur appreciated. RESPIRATORY: No accessory muscle use. Clear to auscultation. Breath sounds equal bilaterally. GASTROINTESTINAL: Abdomen softly distended. +TTP entire right side. +TTP epigastric region. MUSCULOSKELETAL: No obvious deformities. No clubbing. No cyanosis. No edema. NEUROLOGICAL: Awake and alert. No obvious cranial nerve deficits. Motor grossly within normal limits. Normal speech. PSYCHIATRIC: Appropriate mood and affect; insight and judgment normal. Data Data Last Documented VS Vital Signs Date Time Temp Pulse Resp B/P Pulse Ox O2 Delivery O2 Flow Rate FiO2 10/07/16 21:46 127/80 10/07/16 18:17 99.4 71 18 95 Orders Electrocardiogram (10/07/16 ) Complete Blood Count With Diff (10/07/16 20:29) Basic Metabolic Panel (Bmp) (10/07/16 20:29) Ckmb (Isoenzyme) Profile (10/07/16 20:29) Troponin I (10/07/16 20:29) Ammonia (10/07/16 20:29) Chest, Single Ap (10/07/16 ) Ed Urine Pregnancytest Poc (10/07/16 20:29) Urinalysis - C+S If Indicated (10/07/16 20:29) Ct Abd/Pel W Iv Contrast(Rout) (10/07/16 ) Ondansetron Inj (Zofran Inj) (10/07/16 20:45) Urine Culture (10/07/16 20:55) Morphine Inj (Morphine Inj) (10/07/16 22:15) Hepatic Functional Panel (10/07/16 22:04) Iohexol 350 Inj (Omnipaque 350 Inj) (10/07/16 22:46) Lactulose Liq (Lactulose Liq) (10/07/16 23:30) Ciprofloxacin (Cipro) (10/07/16 23:30) Metronidazole (Flagyl) (10/07/16 23:30) Lorazepam Inj (Ativan Inj) (10/07/16 23:30) Labs Laboratory Tests Test 10/07/16 10/07/16 10/07/16 20:15 20:55 20:58 White Blood Count 6.8 TH/MM3 Red Blood Count 3.81 MIL/MM3 Hemoglobin 10.3 GM/DL Hematocrit 31.5 % Mean Corpuscular Volume 82.7 FL Mean Corpuscular Hemoglobin 26.9 PG Mean Corpuscular Hemoglobin 32.6 % Concent Red Cell Distribution Width 15.8 % Platelet Count 144 TH/MM3 Mean Platelet Volume 10.3 FL Neutrophils (%) (Auto) 58.9 % Lymphocytes (%) (Auto) 22.6 % Monocytes (%) (Auto) 14.5 % Eosinophils (%) (Auto) 3.4 % Basophils (%) (Auto) 0.6 % Neutrophils # (Auto) 4.0 TH/MM3 Lymphocytes # (Auto) 1.5 TH/MM3 Monocytes # (Auto) 1.0 TH/MM3 Eosinophils # (Auto) 0.2 TH/MM3 Basophils # (Auto) 0.0 TH/MM3 CBC Comment DIFF FINAL Differential Comment Sodium Level 134 MEQ/L Potassium Level 3.9 MEQ/L Chloride Level 99 MEQ/L Carbon Dioxide Level 26.0 MEQ/L Anion Gap 9 MEQ/L Blood Urea Nitrogen 9 MG/DL Creatinine 0.97 MG/DL Estimat Glomerular Filtration 61 ML/MIN Rate Random Glucose 82 MG/DL Calcium Level 8.9 MG/DL Total Bilirubin 0.4 MG/DL Direct Bilirubin 0.2 MG/DL Indirect Bilirubin 0.2 MG/DL Aspartate Amino Transf 55 U/L (AST/SGOT) Alanine Aminotransferase 42 U/L (ALT/SGPT) Alkaline Phosphatase 120 U/L Total Creatine Kinase 86 U/L Troponin I LESS THAN 0.02 NG/ML Total Protein 8.6 GM/DL Albumin 3.2 GM/DL Urine Color YELLOW Urine Turbidity CLEAR Urine pH 5.5 Urine Specific [place] 1.019 Urine Protein NEG mg/dL Urine Glucose (UA) NEG mg/dL Urine Ketones NEG mg/dL Urine Occult Blood NEG Urine Nitrite NEG Urine Bilirubin NEG Urine Urobilinogen 2.0 MG/DL Urine Leukocyte Esterase SMALL Urine RBC 1 /hpf Urine WBC 8 /hpf Urine Squamous Epithelial 3 /hpf Cells Urine Hyaline Casts 1 /lpf Urine Mucus FEW /lpf Microscopic Urinalysis Comment CULTURE INDICATED Ammonia 44 MCMOL/L MDM Medical Decision Making Medical Screen Exam Complete: Yes Emergency Medical Condition: Yes Interpretation(s) EKG: Sinus bradycardia at 56bpm. Normal axis. No ST segment elevation or depression. Differential Diagnosis Acute pancreatitis vs. colitis vs. appendicitis Narrative Course 46yo F with cirrhosis here with c/o abdominal pain. Labs reviewed, no leukocytosis. H/H is low at 10.3/31.5. This is her baseline. Mild thrombocytopenia at 144 which is also her baseline. Troponin negative. BMP unremarkable. Alk phos and AST elevated but at baseline. Ammonia mildly elevated at 44, will give lactulose. Pt states she ran out of her lactulose and needs a prescription. CXR negative. UA showed WBC 8, culture indicated. CTa/p showed cirrhotic changes of the liver. Trace ascites and mild splenomegaly. Mild right sided uncomplicated colitis. Pt reevaluated at bedside. States her abdominal pain has improved after morphine. States she is no longer nauseous or short of breath. States she is very anxious and needs something for tonight. Will give her ativan 1mg IV. Will give cipro, flagyl and discharge with follow up with her PMD. Pt is well appearing and tolerating PO. Diagnosis Primary Impression: Colitis Patient Instructions: General Instructions Departure Forms: Tests/Procedures Additional Instructions: Please follow up with your PMD in 3-7 days. Return to the ED if symptoms worsen. Med/Other Pt SpecificInfo: Prescription(s) given Scripts Metronidazole (Flagyl)500 Mg [id number] Mg PO TID 10 Days Ref 0 Prov:Enedelia Tadeo DO 10/07/16 Ciprofloxacin 500 Mg [id number] Mg PO BID 10 Days Ref 0 Prov:Enedelia Tadeo DO 10/07/16 Disposition: 01 DISCHARGE HOME Condition: Stable Enedelia Tadeo DO Oct 07, 2016 20:40
[2016-10-07] MEDS ORDERED: ONDANSETRON HCL 4 MG/2 ML VIAL IV PUSH ONE (20:45)
[2016-10-07 20:48] LABS: BASOPHIL % 0.6 % (0.0-2.0); EOSINOPHIL # 0.2 TH/MM3 (0-0.4); EOSINOPHIL % 3.4 % (0.0-4.0); HEMATOCRIT 31.5 % (35.0-46.0); HEMO FLAGS DIFF FINAL; LYMPH % 22.6 % (9.0-44.0); LYMPHOCYTE # 1.5 TH/MM3 (1.0-4.8); MEAN CELL VOLUME 82.7 FL (80.0-100.0); MEAN CORPUSCULAR HEMOGLOBIN 26.9 PG (27.0-34.0); MEAN CORPUSCULAR HGB CONC 32.6 % (32.0-36.0); MONO % 14.5 % (0.0-8.0); NEUT % 58.9 % (16.0-70.0); PLATELET COUNT 144 TH/MM3 (150-450); RED BLOOD COUNT 3.81 MIL/MM3 (4.00-5.30); RED CELL DISTRIBUTION WIDTH 15.8 % (11.6-17.2); WHITE BLOOD COUNT 6.8 TH/MM3 (4.0-11.0)
--- NOTE | 2016-10-07 20:57 | RADRPT ---
EXAM DATE/TIME: 10/07/2016 20:38 [facility] COMPARISON: CHEST SINGLE AP, July 06, 2016, 0:17. INDICATIONS : Short of breath MEDICAL HISTORY : Hepatitis A and C, Anemia, GERD, COPD, HTN, Asthma SURGICAL HISTORY : Unknown ENCOUNTER: Initial ACUITY: 1 day PAIN SCORE: 5/10 LOCATION: Bilateral chest FINDINGS: A single view of the chest demonstrates the lungs to be symmetrically aerated without evidence of mas s, infiltrate or effusion. The cardiomediastinal contours are unremarkable. Osseous structures are intact. CONCLUSION: No evidence of acute cardiopulmonary disease. Dc Qiu MD on October 07, 2016 at 20:54 Board Certified Radiologist. This report was verified electronically.
[2016-10-07 21:26] LABS: BLOOD, URINE NEG (NEG); COMMENT (UR) CULTURE INDICATED; CULTURE IF INDICATED CULTURE INDICATED; GLUCOSE,URINE NEG (NEG); HYALINE CAST, URINE 1 /lpf (RARE); KETONE, URINE NEG (NEG); MUCUS URINE FEW /lpf (OCC); NITRITE,URINE NEG (NEG); PH, URINE 5.5 (5.0-8.5); SQUAMOUS EPITHELIAL CELL URINE 3 /hpf (0-5); URINE COLOR YELLOW (YELLW/STRAW)
[2016-10-07 21:28] LABS: CREATINE KINASE 86 U/L (26-192)
[2016-10-07 21:29] LABS: ANION GAP 9 MEQ/L (5-15); BLOOD UREA NITROGEN 9 MG/DL (7-18); CHLORIDE 99 MEQ/L (98-107); GLOMERULAR FILTRATION RATE 61 ML/MIN (>89); POTASSIUM 3.9 MEQ/L (3.5-5.1); SODIUM (NA) 134 MEQ/L (136-145)
[2016-10-07 21:46] VITALS: BP 127/80
[2016-10-07] MEDS ORDERED: MORPHINE SULFATE 4 MG/ML INJ IV PUSH ONE (22:15)
[2016-10-07] MEDS ORDERED: IOHEXOL 350 MG/ML 10 ML VIAL (for RAD DIAG) IV ONE (22:46)
--- NOTE | 2016-10-07 22:54 | RADRPT ---
EXAM DATE/TIME: 10/07/2016 22:32 [facility] COMPARISON: CT ABDOMEN & PELVIS W CONTRAST, July 06, 2016, 4:16. INDICATIONS : Right sided abdominal pain. IV CONTRAST: 100 cc Omnipaque 350 (iohexol) IV ORAL CONTRAST: No oral contrast ingested. RADIATION DOSE: 6.91 CTDIvol (mGy) MEDICAL HISTORY : Diverticulitis. Pancreatitis. Hernia, hiatal.GERD. Hepatitis, A and C. Anemia. Cirrhosis. SURGICAL HISTORY : Hip surgery, right. ENCOUNTER: Initial ACUITY: 1 day PAIN SCALE: 10/10 LOCATION: Right abdomen TECHNIQUE: Volumetric scanning of the abdomen and pelvis was performed. Using automated exposure control and ad justment of the mA and/or kV according to patient size, radiation dose was kept as low as reasonably achievable to obtain optimal diagnostic quality images. FINDINGS: Cirrhosis again noted with recanalized umbilical vein and esophageal varices. There is mild edema and more since pouch and also in both pericolic gutters, especially on the right. There is some wall thi ckening of the colon in the region of the hepatic flexure. No abscess, perforation or obstruction. Spleen is 14 cm craniocaudal, similar to before. No focal hepatic lesion. Pancreas, adrenal glands and kidneys are normal. There is a 6 mm stone again seen in the gallbladder. No ductal stone or ductal dilatation. CONCLUSION: 1. Cirrhotic changes of the liver are again noted. Trace ascites and mild splenomegaly. 2. Apparent mild right-sided uncomplicated colitis. Dc Qiu MD on October 07, 2016 at 22:48 Board Certified Radiologist. This report was verified electronically.
[2016-10-07 22:57] LABS: TOTAL BILIRUBIN ADULT 0.4 MG/DL (0.2-1.0)
[2016-10-07 22:59] LABS: INDIRECT BILIRUBIN 0.2 MG/DL (0.0-0.8)
[2016-10-07] MEDS ORDERED: CIPR500T2 PO (23:29)
[2016-10-07] MEDS ORDERED: METR-1 PO (23:29)
[2016-10-07] MEDS ORDERED: LACTULOSE SYRUP 20 GM/30 ML CUP PO ONE (23:30)
[2016-10-07] MEDS ORDERED: metroNIDAZOLE 500 MG TAB PO ONE (23:30)
[2016-10-07] MEDS ORDERED: CIPROFLOXACIN 500 MG TAB PO ONE (23:30)
[2016-10-07] MEDS ORDERED: LORazepam 2 MG/ML VIAL IV PUSH ONE (23:30)
--- NOTE | 2016-10-08 22:34 | EKG ---
Date Performed: 10/07/2016 Time Performed: 21:26:21 PTAGE: 46 years EKG: SINUS BRADYCARDIA BORDERLINE ECG PREVIOUS TRACING : 09/17/2016 18.50 DOCTOR: Dino Ashford Interpretating Date/Time 10/08/2016 22:33:12
== END 2016-10-07 23:57 | disposition home or self-care (01) ==
LOC: NEPD 18:14
DX: K52.9 Noninfective gastroenteritis and colitis, unspecified (principal); R06.02 Shortness of breath; R18.8 Other ascites; R16.1 Splenomegaly, not elsewhere classified; R00.1 Bradycardia, unspecified; I10 Essential (primary) hypertension; E07.9 Disorder of thyroid, unspecified; R73.03 Prediabetes; F17.200 Nicotine dependence, unspecified, uncomplicated; Z79.82 Long term (current) use of aspirin; Z87.19 Personal history of other diseases of the digestive system; Z87.09 Personal history of other diseases of the respiratory system; Z86.2 Personal history of diseases of the blood and blood-forming organs and certain disorders involving the immune mechanism; Z87.39 Personal history of other diseases of the musculoskeletal system and connective tissue; Z86.59 Personal history of other mental and behavioral disorders; Z86.79 Personal history of other diseases of the circulatory system; Z86.69 Personal history of other diseases of the nervous system and sense organs
CPT/HCPCS: 71010; 74177; 80048; 80076; 81001; 82140; 82550; 84484; 84703; 85025; 87086; 93005; 96374; 96375; 99285; J2060; J2270; J2405; Q9967

== ENCOUNTER 2016-10-18 14:02 | Emergency (ER) | payer OTHER ==
[~2016-10-18] VITALS: Ht 154.9 cm; Wt 62.7 kg
[~2016-10-18 14:02] MED LIST changes: +BUSP15TA PO; +CIPR500T2 PO; +FOLI1CAP7 PO; +LEVE500 PO; +METR-1 PO; +SPIR50TA PO
[2016-10-18 14:04] VITALS: BP 107/64; PULSE 73; RESP 20; TEMP 97.9; O2SAT 98
--- NOTE | 2016-10-18 15:25 | PD ---
Physical Exam Time Seen by Provider: 15:24 Narrative 46yo F c/o colitis flareup x 36hours. Reports diarrhea. Denies vomiting, fever. Patient seen in triage. Awaiting bed placement. VS reviewed. Data Data Last Documented VS Vital Signs Date Time Temp Pulse Resp B/P Pulse Ox O2 Delivery O2 Flow Rate FiO2 10/18/16 14:04 97.9 73 20 107/64 98 Room Air [facility] Supervised Visit with BESS: Brook Gaona Oct 18, 2016 15:25
--- NOTE | 2016-10-18 15:44 | PD ---
HPI Chief Complaint: Abdominal Pain Time Seen by Provider: 15:44 Travel History International Travel<30 days: No Contact w/Intl Traveler<30days: No Traveled to known affect area: No History of Present Illness HPI 46-year-old female presents the emergency department with ongoing distention, discomfort, and pain in the right upper quadrant. Patient was recently seen on 07 October and prescribed Cipro and Flagyl for presumed colitis on CT. She states her nausea and diarrhea improved after the antibiotics. She states she has a little bit of nausea today which is what brought her in with the complaints of abdominal pain which radiates to the back today. As fever, chills, or other symptoms. She has not vomited. She states her stools are soft and thin but not liquidy. She denies seeing blood in the urine or stool. She denies urinary symptoms. Her pain is an ache mainly in the right upper quadrant. This partially 6 out of 10 at this time. She has a history of MRSA as well as hepatitis. She has no known drug allergies. PFSH Past Medical History Hx Anticoagulant Therapy: Yes (ASA) Anemia: Yes Arthritis: Yes Asthma: Yes Autoimmune Disease: No Blood Disorders: No Bipolar Disorder: Yes Anxiety: Yes Depression: No Heart Rhythm Problems: Yes (QUESTIONABLE MURMUR) Cancer: No Cardiovascular Problems: Yes (HTN) High Cholesterol: No Chemotherapy: No Chest Pain: No Congestive Heart Failure: No Cirrhosis: Yes COPD: Yes Cerebrovascular Accident: No Diabetes: Yes (BORDERLINE) Diminished Hearing: No Diverticulitis: Yes Endocrine: Yes Gastrointestinal Disorders: Yes ("PROBLEMS WITH LIVER", ESOPHAGEAL VARICIES) GERD: Yes Genitourinary: No Headaches: Yes Hepatitis: Yes (A&C) Hiatal Hernia: Yes Heparin Induced Thrombocytopen: No Hypertension: Yes Immune Disorder: No Implanted Vascular Access Dvce: No Kidney Stones: No Musculoskeletal: Yes Neurologic: No Psychiatric: Yes (BIPOLAR) Reproductive: No Respiratory: Yes (COPD) Integumentary: Yes Immunizations Current: No Migraines: No Pancreatitis: Yes Radiation Therapy: No Renal Failure: No Seizures: Yes Sickle Cell Disease: No Sleep Apnea: No Thyroid Disease: Yes Ulcer: Yes ?: Not LMP: MENOPAUSE Menopausal: Yes : 4 Para: 3 : 1 Tubal Ligation: Yes Past Surgical History Abdominal Surgery: Yes (ESOPHAGEAL VARICES WITH BANDING; paracentesis) AICD: No Arteriovenous Shunt: No Cardiac Surgery: No Ear Surgery: No Endocrine Surgery: No Eye Surgery: No Genitourinary Surgery: No Gynecologic Surgery: Yes (CERVICAL FREEZE) Insulin Pump: No Joint Replacement: No Neurologic Surgery: No Oral Surgery: Yes (ALL TEETH REMOVED) Pacemaker: No Thoracic Surgery: No Other Surgery: Yes (ANTHROSCOPIC RIGHT ANKLE,FRACTURE RIGHT LEG,BONE GRAPH.) Social History Alcohol Use: No (2 mos sober) Tobacco Use: Yes (1 ppd) Substance Use: Yes (COCAINE, METH PER HX; alcohol) Allergies-Medications (Allergen,Severity, Reaction): Coded Allergies: *MDRO Multi-Drug Resistant Organism (Verified Adverse Reaction, Unknown, ) 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) Reported Meds & Prescriptions Reported Meds & Active Scripts Active Flagyl (Metronidazole) 500 Mg Tab 500 Mg PO TID 10 Days Ciprofloxacin (Ciprofloxacin HCl) 500 Mg Tab 500 Mg PO BID 10 Days Metoprolol Tartrate 25 Mg Tab 25 Mg PO BID Reported Keppra (Levetiracetam) 500 Mg Tab 500 Mg PO BID Buspirone (Buspirone HCl) 15 Mg Tab 15 Mg PO BID Folic Acid 800 Mcg Cap 800 Mcg PO DAILY Spironolactone 50 Mg Tab 50 Mg PO DAILY Tizanidine (Tizanidine HCl) 4 Mg Tab 4 Mg PO TID Levothyroxine (Levothyroxine Sodium) Unknown Strength Tab 1 Tab PO DAILY Zofran (Ondansetron HCl) Unknown Strength Tab 1 Tab PO Q6HR PRN Furosemide Unknown Strength Tab 1 Tab PO DAILY Lactulose Liq (Lactulose) 10 Gm/15 Ml Soln 15 Ml PO BID Review of Systems Except as stated in HPI: all other systems reviewed are Neg General / Constitutional: No: Fever, Chills Eyes: No: Visual changes HENT: No: Headaches Cardiovascular: No: Chest Pain or Discomfort Respiratory: No: Shortness of Breath Gastrointestinal: Positive: Nausea, Abdominal Pain, No: Vomiting, Diarrhea, Loss of Appetite Genitourinary: No: Dysuria, Hematuria Musculoskeletal: No: Pain Skin: No Rash Neurologic: No: Weakness Psychiatric: No: Depression Endocrine: No: Polydipsia Hematologic/Lymphatic: No: Easy Bruising Physical Exam Narrative GENERAL: Patient appears in acute distress. SKIN: Warm and dry. Normal color. Normal turgor. HEAD: Atraumatic. Normocephalic. EYES: Pupils equal and round. No scleral icterus. No injection or drainage. ENT: No nasal bleeding or discharge. Mucous membranes pink and moist. Pharynx is clear. Airway is patent. NECK: Trachea midline. Supple and nontender. CARDIOVASCULAR: Regular rate and rhythm. RESPIRATORY: No accessory muscle use. Clear to auscultation. Breath sounds equal bilaterally. GASTROINTESTINAL: Abdomen soft, moderate upper abdominal discomfort more in the right than the left., Moderate distention. Liver edge is palpable and tender with liver span estimated at 10 cm. Splenic margins not palpable. MUSCULOSKELETAL: Extremities without clubbing, cyanosis, or edema. No obvious deformities. NEUROLOGICAL: Awake and alert. No obvious cranial nerve deficits. Motor grossly within normal limits. Five out of 5 muscle strength in the arms and legs. Normal speech. PSYCHIATRIC: Appropriate mood and affect; insight and judgment normal. Data Data Last Documented VS Vital Signs Date Time Temp Pulse Resp B/P Pulse Ox O2 Delivery O2 Flow Rate FiO2 10/18/16 16:35 18 10/18/16 16:35 98 Room Air 10/18/16 14:04 97.9 73 107/64 Orders Complete Blood Count With Diff (10/18/16 15:56) Comprehensive Metabolic Panel (10/18/16 15:56) Lipase (10/18/16 15:56) Lactic Acid (10/18/16 15:56) Urinalysis - C+S If Indicated (10/18/16 15:56) Us Abdomen Gallbladder (10/18/16 ) Iv Access Insert/Monitor (10/18/16 15:56) Ecg Monitoring (10/18/16 15:56) Oximetry (10/18/16 15:56) NPO (10/18/16 15:56) Sodium Chloride 0.9% Flush (Ns Flush) (10/18/16 16:00) Chest, Single Ap (10/18/16 15:56) Ketorolac Inj (Toradol Inj) (10/18/16 16:00) Ammonia (10/18/16 15:56) Prothrombin Time / Inr (Pt) (10/18/16 15:56) Act Partial Throm Time (Ptt) (10/18/16 15:56) Ondansetron Inj (Zofran Inj) (10/18/16 17:15) Labs Laboratory Tests Test 10/18/16 10/18/16 10/18/16 16:11 16:17 16:29 White Blood Count 5.6 TH/MM3 Red Blood Count 3.60 MIL/MM3 Hemoglobin 9.6 GM/DL Hematocrit 29.6 % Mean Corpuscular Volume 82.2 FL Mean Corpuscular Hemoglobin 26.7 PG Mean Corpuscular Hemoglobin 32.5 % Concent Red Cell Distribution Width 15.4 % Platelet Count 167 TH/MM3 Mean Platelet Volume 9.6 FL Neutrophils (%) (Auto) 54.5 % Lymphocytes (%) (Auto) 31.9 % Monocytes (%) (Auto) 10.3 % Eosinophils (%) (Auto) 2.5 % Basophils (%) (Auto) 0.8 % Neutrophils # (Auto) 3.1 TH/MM3 Lymphocytes # (Auto) 1.8 TH/MM3 Monocytes # (Auto) 0.6 TH/MM3 Eosinophils # (Auto) 0.1 TH/MM3 Basophils # (Auto) 0.0 TH/MM3 CBC Comment DIFF FINAL Differential Comment Prothrombin Time 12.2 SEC Prothromb Time International 1.1 RATIO Ratio Activated Partial 23.3 SEC Thromboplast Time Sodium Level 140 MEQ/L Potassium Level 3.3 MEQ/L Chloride Level 105 MEQ/L Carbon Dioxide Level 27.1 MEQ/L Anion Gap 8 MEQ/L Blood Urea Nitrogen 21 MG/DL Creatinine 0.93 MG/DL Estimat Glomerular Filtration 64 ML/MIN Rate Random Glucose 103 MG/DL Calcium Level 8.5 MG/DL Total Bilirubin 0.4 MG/DL Aspartate Amino Transf 65 U/L (AST/SGOT) Alanine Aminotransferase 36 U/L (ALT/SGPT) Alkaline Phosphatase 90 U/L Total Protein 8.3 GM/DL Albumin 3.3 GM/DL Lipase 207 U/L Lactic Acid Level 1.5 mmol/L Ammonia 37 MCMOL/L Urine Color YELLOW Urine Turbidity HAZY Urine pH 6.0 Urine Specific [place] 1.005 Urine Protein NEG mg/dL Urine Glucose (UA) NEG mg/dL Urine Ketones NEG mg/dL Urine Occult Blood NEG Urine Nitrite NEG Urine Bilirubin NEG Urine Urobilinogen LESS THAN 2.0 MG/DL Urine Leukocyte Esterase SMALL Urine RBC 2 /hpf Urine WBC 5 /hpf Urine Squamous Epithelial 8 /hpf Cells Urine Amorphous Sediment RARE Urine Bacteria RARE /hpf Microscopic Urinalysis Comment CULT NOT INDICATED MDM Medical Decision Making Medical Screen Exam Complete: Yes Emergency Medical Condition: Yes Medical Record Reviewed: Yes Differential Diagnosis Abdominal distention. Abdominal pain. Hepatitis flare. Pancreatitis. Narrative Course Patient appears medically stable at time of exam. Labs are ordered including CBC, CMP, ammonia level, PT PTT and INR, and urinalysis. Ultrasound of the abdomen is performed. Chest x-ray is ordered as well. IV access is obtained patient is given 30 mg Toradol IV. Chest x-ray was unremarkable. CBC shows chronic anemia typical for her. No significant acute changes noted. Coagulation studies are slightly elevated consistent with her history. CMP shows a potassium of 3.3. BUN is 21. AST is 65. Ammonia is 37. Total protein is 8.3. Albumin is 3.3. Urinalysis is unremarkable. Ultrasound shows gallstones without acute findings per radiologist. Chronic hepatitis is noted. Findings noted per radiologist Patient is felt stable to discharge home. Patient can take [id number] Tylenol and ibuprofen as needed. Patient follow with her primary care physician and pain management in the next week. Patient to follow a low-fat diet. Patient can return with worsening symptoms as needed. Diagnosis Primary Impression: Abdominal pain Qualified Code: R10.10 - Pain of upper abdomen Additional Impression: Gall stone Qualified Code: K80.20 - Calculus of gallbladder without cholecystitis without obstruction Referrals: Primary Care Physician Patient Instructions: General Instructions, Low Fat Diet (ED) Additional Instructions: Chest x-ray was unremarkable. CBC shows chronic anemia typical for her. No significant acute changes noted. Coagulation studies are slightly elevated consistent with her history. CMP shows a potassium of 3.3. BUN is 21. AST is 65. Ammonia is 37. Total protein is 8.3. Albumin is 3.3. Urinalysis is unremarkable. Ultrasound shows gallstones without acute findings per radiologist. Chronic hepatitis is noted. Findings noted per radiologist Patient is felt stable to discharge home. Patient can take [id number] Tylenol and ibuprofen as needed. Patient follow with her primary care physician and pain management in the next week. Patient to follow a low-fat diet. Patient can return with worsening symptoms as needed. Med/Other Pt SpecificInfo: No Meds Exist/No RX given Disposition: DISCHARGE HOME Condition: Stable Kirby Azevedo Oct 18, 2016 15:44
[2016-10-18] MEDS ORDERED: SODIUM CHLORIDE 0.9% FLUSH 10 ML FLUSH IV FLUSH PRN (16:00)
[2016-10-18] MEDS ORDERED: KETOROLAC TROMETHAMINE 30 MG/ML (IVP) VIAL IVP ONE (16:00)
--- NOTE | 2016-10-18 16:15 | PD ---
Data Data Last Documented VS Vital Signs Date Time Temp Pulse Resp B/P Pulse Ox O2 Delivery O2 Flow Rate FiO2 10/18/16 14:04 97.9 73 20 107/64 98 Room Air Orders Complete Blood Count With Diff (10/18/16 15:56) Comprehensive Metabolic Panel (10/18/16 15:56) Lipase (10/18/16 15:56) Lactic Acid (10/18/16 15:56) Urinalysis - C+S If Indicated (10/18/16 15:56) Us Abdomen Gallbladder (10/18/16 ) Iv Access Insert/Monitor (10/18/16 15:56) Ecg Monitoring (10/18/16 15:56) Oximetry (10/18/16 15:56) NPO (10/18/16 15:56) Sodium Chloride 0.9% Flush (Ns Flush) (10/18/16 16:00) Chest, Single Ap (10/18/16 15:56) Ketorolac Inj (Toradol Inj) (10/18/16 16:00) Ammonia (10/18/16 15:56) Prothrombin Time / Inr (Pt) (10/18/16 15:56) Act Partial Throm Time (Ptt) (10/18/16 15:56) MDM Supervised Visit with BESS: Yes Narrative Course I, Dr. Holland, have reviewed the advance practice practioner's documentation and am in agreement, met with the patient face to face, made the diagnosis, and the medical decision making was done by me. *My assessment and Findings: 28-year-old female with history of alcoholic cirrhosis, hepatitis, previous GI bleeding from esophageal varices here with abdominal distention, bloating/discomfort and right upper quadrant abdominal pain. Seen here approximately 10 days ago and diagnosed with right sided colitis and treated with Cipro and Flagyl. Her diarrhea has improved but she has persistent abdominal pain. On exam she has distention, possible fluid wave and certainly right sided hepatomegaly. Differential includes hepatobiliary pathology, cirrhosis, pancreatitis, ascites. My suspicion for SBP is exceedingly low given her overall abdominal examination is benign. Will obtain laboratory testing and ultrasound to evaluate the gallbladder and liver further. Condition: Stable Kriss Holland MD Oct 18, 2016 16:15
--- NOTE | 2016-10-18 16:29 | RADRPT ---
EXAM DATE/TIME: 10/18/2016 16:10 [facility] COMPARISON: CHEST SINGLE AP, October 07, 2016, 20:38. INDICATIONS : Cough and congestion. MEDICAL HISTORY : Hepatitis A and C, Anemia, GERD, COPD, HTN, Asthma, Emphysema. SURGICAL HISTORY : None. ENCOUNTER: Initial ACUITY: 1 day PAIN SCORE: 3/10 LOCATION: Bilateral chest FINDINGS: A single view of the chest demonstrates the lungs to be symmetrically aerated without evidence of mas s, infiltrate or effusion. The cardiomediastinal contours are unremarkable. Osseous structures are intact. CONCLUSION: 1. No acute cardiomegaly disease. Francis Bond MD on October 18, 2016 at 16:27 Board Certified Radiologist. This report was verified electronically.
[2016-10-18 16:35] VITALS: O2SAT 98
[2016-10-18 16:39] LABS: APTT (PATIENT) 23.3 SEC (24.3-30.1); AUTOMATED NEUTROPHIL # 3.1 TH/MM3 (1.8-7.7); BASOPHIL % 0.8 % (0.0-2.0); EOSINOPHIL # 0.1 TH/MM3 (0-0.4); EOSINOPHIL % 2.5 % (0.0-4.0); HEMATOCRIT 29.6 % (35.0-46.0); HEMO FLAGS DIFF FINAL; INTERNATIONAL NORMALIZED RATIO 1.1 RATIO; LYMPH % 31.9 % (9.0-44.0); LYMPHOCYTE # 1.8 TH/MM3 (1.0-4.8); MEAN CELL VOLUME 82.2 FL (80.0-100.0); MEAN CORPUSCULAR HEMOGLOBIN 26.7 PG (27.0-34.0); MEAN CORPUSCULAR HGB CONC 32.5 % (32.0-36.0); MONO % 10.3 % (0.0-8.0); NEUT % 54.5 % (16.0-70.0); PLATELET COUNT 167 TH/MM3 (150-450); PROTHROMBIN TIME - PATIENT 12.2 SEC (9.8-11.6); RED CELL DISTRIBUTION WIDTH 15.4 % (11.6-17.2); WHITE BLOOD COUNT 5.6 TH/MM3 (4.0-11.0)
[2016-10-18 16:42] LABS: BACTERIA, URINE RARE /hpf; BLOOD, URINE NEG (NEG); COMMENT (UR) CULT NOT INDICATED; CULTURE IF INDICATED CULT NOT INDICATED; GLUCOSE,URINE NEG (NEG); KETONE, URINE NEG (NEG); NITRITE,URINE NEG (NEG); SQUAMOUS EPITHELIAL CELL URINE 8 /hpf (0-5); URINE COLOR YELLOW (YELLW/STRAW)
[2016-10-18 16:56] LABS: ANION GAP 8 MEQ/L (5-15); AST (GOT) 65 U/L (15-37); BICARBONATE 27.1 MEQ/L (21.0-32.0); BLOOD UREA NITROGEN 21 MG/DL (7-18); CHLORIDE 105 MEQ/L (98-107); GLOMERULAR FILTRATION RATE 64 ML/MIN (>89); POTASSIUM 3.3 MEQ/L (3.5-5.1); SODIUM (NA) 140 MEQ/L (136-145)
[2016-10-18 17:00] LABS: ALKALINE PHOSPHATASE 90 U/L (45-117); ALT (GPT) 36 U/L (10-53); TOTAL BILIRUBIN ADULT 0.4 MG/DL (0.2-1.0)
[2016-10-18] MEDS ORDERED: ONDANSETRON HCL 4 MG/2 ML VIAL IV PUSH ONE (17:15)
--- NOTE | 2016-10-18 17:57 | RADRPT ---
EXAM DATE/TIME: 10/18/2016 16:59 [facility] COMPARISON: CT ABDOMEN & PELVIS W CONTRAST, October 07, 2016, 22:32. INDICATIONS : Right upper quadrant pain. MEDICAL HISTORY : Pancreatitis. Emphysema. Diverticulitis. Thyroid disease. Seizures. Headache. Numbness, arms and legs . Heart murmur. COPD. Asthma. Dsypnea. HTN. Hiatal hernia. Esophageal varices. GERD. Arthritis. Borde rline diabetes. Cirrhosis. Hep A&C. Anemia. Bipolar disorder. PTSD. Anxiety. Anticoagulant therapy, Aspirin. MRSA. SURGICAL HISTORY : Tubal ligation. Esophageal banding. Paracentesis. Cervical freeze. Right ankle. Right hip and leg . Blood transfusions. ENCOUNTER: Initial ACUITY: 2 days PAIN SCORE: 5/10 LOCATION: Right upper quadrant MEASUREMENTS: LIVER: 20.2 cm length COMMON DUCT: 4 mm RIGHT KIDNEY: 10.5 x 5.7 x 4.6 cm FINDINGS: LIVER: Enlarged, cirrhotic liver. No mass or biliary ductal dilatation. COMMON DUCT: No intraluminal mass or stone visualized. GALLBLADDER: At least one stone. Mild wall thickening. No definite pericholecystic fluid PANCREAS: The visualized portions are within normal limits. RIGHT KIDNEY: No evidence of hydronephrosis, stone, or mass. CONCLUSION: Cirrhotic liver. Gallstone. Dc Thrasher MD on October 18, 2016 at 17:51 Board Certified Radiologist. This report was verified electronically.
== END 2016-10-18 19:03 | disposition home or self-care (01) ==
LOC: NEPD 14:02
DX: K80.80 Other cholelithiasis without obstruction (principal); K52.9 Noninfective gastroenteritis and colitis, unspecified; K70.30 Alcoholic cirrhosis of liver without ascites; K75.9 Inflammatory liver disease, unspecified; F17.200 Nicotine dependence, unspecified, uncomplicated; D64.9 Anemia, unspecified; I10 Essential (primary) hypertension; J44.9 Chronic obstructive pulmonary disease, unspecified; F31.9 Bipolar disorder, unspecified
CPT/HCPCS: 71010; 76705; 80053; 81001; 82140; 83605; 83690; 85025; 85610; 85730; 96374; 96375; 99285; J1885; J2405

== ENCOUNTER 2016-10-22 14:10 | Inpatient (IN) | payer OTHER ==
[~2016-10-22] VITALS: Ht 154.9 cm; Wt 67.0 kg
[2016-10-22 14:14] VITALS: BP 80/47; PULSE 79; RESP 16; TEMP 97.6; O2SAT 96
[2016-10-22 14:20] VITALS: BP 86/49
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
[2016-10-22] MEDS ORDERED: SODIUM CHLOR 0.9% 1000 ML INJ 1,000 ML IV SCH (15:10)
[2016-10-22] MEDS ORDERED: SODIUM CHLOR 0.9% 250 ML INJ 250 ML IV ONE ×2 (15:15→16:00)
[2016-10-22] MEDS ORDERED: SODIUM CHLORIDE 0.9% FLUSH 10 ML FLUSH IV FLUSH PRN (15:15)
[2016-10-22 15:20] VITALS: BP 79/40; PULSE 77; RESP 16; O2SAT 96
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
[2016-10-22 15:48] LABS: AUTOMATED NEUTROPHIL # 7.2 TH/MM3 (1.8-7.7); BASOPHIL % 0.4 % (0.0-2.0); EOSINOPHIL # 0.1 TH/MM3 (0-0.4); LYMPH % 22.6 % (9.0-44.0); LYMPHOCYTE # 2.4 TH/MM3 (1.0-4.8); MEAN CELL VOLUME 82.8 FL (80.0-100.0); MEAN CORPUSCULAR HEMOGLOBIN 27.2 PG (27.0-34.0); MEAN CORPUSCULAR HGB CONC 32.8 % (32.0-36.0); MONO % 7.3 % (0.0-8.0); NEUT % 68.7 % (16.0-70.0); PLATELET COUNT 163 TH/MM3 (150-450); RED BLOOD COUNT 2.53 MIL/MM3 (4.00-5.30); RED CELL DISTRIBUTION WIDTH 15.2 % (11.6-17.2); WHITE BLOOD COUNT 10.5 TH/MM3 (4.0-11.0)
[2016-10-22 15:50] LABS: HEMO FLAGS DIFF FINAL
[2016-10-22 15:53] LABS: HEMATOCRIT 20.9 % (35.0-46.0)
[2016-10-22 15:58] VITALS: BP 96/55; PULSE 77; RESP 16; O2SAT 96
[2016-10-22 15:58] LABS: APTT (PATIENT) 27.4 SEC (24.3-30.1); INTERNATIONAL NORMALIZED RATIO 1.2 RATIO; PROTHROMBIN TIME - PATIENT 12.8 SEC (9.8-11.6)
[2016-10-22 16:13] LABS: ALT (GPT) 39 U/L (10-53); ANION GAP 10 MEQ/L (5-15); AST (GOT) 62 U/L (15-37); BICARBONATE 24.7 MEQ/L (21.0-32.0); BLOOD UREA NITROGEN 24 MG/DL (7-18); CHLORIDE 104 MEQ/L (98-107); GLOMERULAR FILTRATION RATE 47 ML/MIN (>89); POTASSIUM 3.4 MEQ/L (3.5-5.1); SODIUM (NA) 139 MEQ/L (136-145)
[2016-10-22 16:15] LABS: ALKALINE PHOSPHATASE 86 U/L (45-117); TOTAL BILIRUBIN ADULT 0.4 MG/DL (0.2-1.0)
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
[2016-10-22] MEDS ORDERED: cefTRIAXone INJ 1,000 MG in SODIUM CHLORIDE 0.9% INJ 100 ML IV ONE (17:15)
[2016-10-22] MEDS ORDERED: PANTOPRAZOLE INJ 80 MG in SODIUM CHLORIDE 0.9% INJ 100 ML IV SCH (17:15)
[2016-10-22] MEDS ORDERED: PANTOPRAZOLE INJ 80 MG in SODIUM CHLORIDE 0.9% INJ 35 ML IV ONE (17:15)
[2016-10-22] MEDS ORDERED: SODIUM CHLORIDE 0.9% FLUSH 10 ML FLUSH IVF PRN (17:15)
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
[2016-10-22 17:51] VITALS: BP 93/55; PULSE 68; RESP 16; TEMP 98.7; O2SAT 96
[2016-10-22 18:18] VITALS: BP 99/57; PULSE 74; RESP 16; TEMP 98.1; O2SAT 96
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
== END 2016-10-22 19:45 | disposition short-term general hospital (02) | DRG 565 ==
LOC: NEPC 14:10 → NEDA 17:11
PROVIDERS: ADMIT Internal Medicine; ATTEND Internal Medicine
DX: S02.82XA Fracture of other specified skull and facial bones, left side, initial encounter for closed fracture (principal); K92.1 Melena; I95.9 Hypotension, unspecified; K70.30 Alcoholic cirrhosis of liver without ascites; J44.9 Chronic obstructive pulmonary disease, unspecified; I10 Essential (primary) hypertension; D64.9 Anemia, unspecified; F17.210 Nicotine dependence, cigarettes, uncomplicated; F31.9 Bipolar disorder, unspecified; K21.9 Gastro-esophageal reflux disease without esophagitis; Y04.2XXA Assault by strike against or bumped into by another person, initial encounter; M25.531 Pain in right wrist
CPT/HCPCS: 70450; 70486; 73090; 80053; 83605; 83690; 85025; 85610; 85730; 86077; 86850; 86870; 86900; 86901; 86920; 86922; C9113; J0696; J7030; J7050; P9016

== ENCOUNTER 2016-11-03 12:47 | Inpatient (IN) | payer OTHER ==
[2016-11-03] VITALS (13 sets, daily range): BP systolic 73–119; BP diastolic 44–59; PULSE 73–83; RESP 16–24; TEMP 97.4–98.8; O2SAT 95–100
[~2016-11-03] VITALS: Ht 154.9 cm; Wt 67.6 kg
[~2016-11-03 12:47] MED LIST changes: -CIPR500T2 PO; -METR-1 PO
[2016-11-03 13:53] LABS: AUTOMATED NEUTROPHIL # 3.7 TH/MM3 (1.8-7.7); BASOPHIL % 0.8 % (0.0-2.0); EOSINOPHIL # 0.1 TH/MM3 (0-0.4); LYMPH % 19.2 % (9.0-44.0); LYMPHOCYTE # 1.1 TH/MM3 (1.0-4.8); MEAN CELL VOLUME 83.1 FL (80.0-100.0); MEAN CORPUSCULAR HEMOGLOBIN 26.9 PG (27.0-34.0); MEAN CORPUSCULAR HGB CONC 32.3 % (32.0-36.0); MONO % 14.5 % (0.0-8.0); NEUT % 64.5 % (16.0-70.0); PLATELET COUNT 207 TH/MM3 (150-450); WHITE BLOOD COUNT 5.7 TH/MM3 (4.0-11.0)
[2016-11-03 14:00] LABS: HEMO FLAGS DIFF FINAL
[2016-11-03] MEDS ORDERED: SODIUM CHLOR 0.9% 1000 ML INJ 1,000 ML IV ONE (14:00)
[2016-11-03 14:03] LABS: HEMATOCRIT 12.5 % (35.0-46.0)
[2016-11-03 14:06] LABS: APTT (PATIENT) 22.5 SEC (24.3-30.1); INTERNATIONAL NORMALIZED RATIO 1.1 RATIO; PROTHROMBIN TIME - PATIENT 12.4 SEC (9.8-11.6)
[2016-11-03] MEDS ORDERED: SODIUM CHLOR 0.9% 250 ML INJ 250 ML IV ONE (14:15)
[2016-11-03 14:18] LABS: ALKALINE PHOSPHATASE 68 U/L (45-117); ALT (GPT) 30 U/L (10-53); TOTAL BILIRUBIN ADULT 0.3 MG/DL (0.2-1.0)
[2016-11-03 14:19] LABS: ANION GAP 8 MEQ/L (5-15); AST (GOT) 43 U/L (15-37); BICARBONATE 25.3 MEQ/L (21.0-32.0); BLOOD UREA NITROGEN 9 MG/DL (7-18); CHLORIDE 108 MEQ/L (98-107); GLOMERULAR FILTRATION RATE 62 ML/MIN (>89); SODIUM (NA) 141 MEQ/L (136-145)
--- NOTE | 2016-11-03 14:23 | PD ---
HPI Chief Complaint: Seizure Time Seen by Provider: 13:46 Travel History International Travel<30 days: No Contact w/Intl Traveler<30days: No Traveled to known affect area: No History of Present Illness HPI Patient is a 46-year-old female presents emergency department for evaluation after a seizure. Patient is coming by her who states the patient wishes standing and then lost consciousness, she had some altered mental status immediately following the event but had no shaking symptoms. Patient was initially a little confused but came to rather quickly. She's never had a seizure before. She states she does have a history of every alcohol use in the past and has a history of esophageal varices but does not have any nausea vomiting hematemesis hemoptysis blood in the stool or melena. PFSH Past Medical History Hx Anticoagulant Therapy: Yes (ASA) Anemia: Yes Arthritis: Yes Asthma: Yes Autoimmune Disease: No Blood Disorders: No Bipolar Disorder: Yes Anxiety: Yes Depression: No Heart Rhythm Problems: Yes (QUESTIONABLE MURMUR) Cancer: No High Cholesterol: No Chemotherapy: No Chest Pain: No Congestive Heart Failure: No Cirrhosis: Yes COPD: Yes Cerebrovascular Accident: No Diabetes: No (BORDERLINE) Diminished Hearing: No Diverticulitis: Yes Endocrine: Yes Gastrointestinal Disorders: Yes ("PROBLEMS WITH LIVER", ESOPHAGEAL VARICIES) GERD: Yes Genitourinary: No Headaches: Yes Hepatitis: Yes (A&C) Hiatal Hernia: Yes Heparin Induced Thrombocytopen: No Hypertension: Yes Immune Disorder: No Implanted Vascular Access Dvce: No Kidney Stones: No Musculoskeletal: Yes Neurologic: No Psychiatric: Yes (BIPOLAR) Reproductive: No Respiratory: Yes (COPD) Integumentary: Yes Immunizations Current: No Migraines: No Pancreatitis: Yes Radiation Therapy: No Renal Failure: No Seizures: Yes Sickle Cell Disease: No Sleep Apnea: No Thyroid Disease: Yes Ulcer: Yes ?: Not Menopausal: Yes : 4 Para: 3 : 1 Tubal Ligation: Yes Past Surgical History Abdominal Surgery: Yes (ESOPHAGEAL VARICES WITH BANDING; paracentesis) AICD: No Arteriovenous Shunt: No Cardiac Surgery: No Ear Surgery: No Endocrine Surgery: No Eye Surgery: No Genitourinary Surgery: No Gynecologic Surgery: Yes (CERVICAL FREEZE) Insulin Pump: No Joint Replacement: No Neurologic Surgery: No Oral Surgery: Yes (ALL TEETH REMOVED) Pacemaker: No Thoracic Surgery: No Other Surgery: Yes (ANTHROSCOPIC RIGHT ANKLE,FRACTURE RIGHT LEG,BONE GRAPH.) Social History 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) Tobacco Use: Yes (1 ppd) Substance Use: Yes (COCAINE, METH PER HX; alcohol) Allergies-Medications (Allergen,Severity, Reaction): Coded Allergies: *MDRO Multi-Drug Resistant Organism (Verified Adverse Reaction, Unknown, ) 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) Reported Meds & Prescriptions Reported Meds & Active Scripts Active Metoprolol Tartrate 25 Mg Tab 25 Mg PO BID Reported Keppra (Levetiracetam) 500 Mg Tab 500 Mg PO BID Buspirone (Buspirone HCl) 15 Mg Tab 15 Mg PO BID Folic Acid 800 Mcg Cap 800 Mcg PO DAILY Spironolactone 50 Mg Tab 50 Mg PO DAILY Tizanidine (Tizanidine HCl) 4 Mg Tab 4 Mg PO TID Levothyroxine (Levothyroxine Sodium) Unknown Strength Tab 1 Tab PO DAILY Zofran (Ondansetron HCl) Unknown Strength Tab 1 Tab PO Q6HR PRN Furosemide Unknown Strength Tab 1 Tab PO DAILY Lactulose Liq (Lactulose) 10 Gm/15 Ml Soln 15 Ml PO BID Review of Systems Except as stated in HPI: all other systems reviewed are Neg Physical Exam Narrative GENERAL: Well-developed well-nourished, appears quite pale in no obvious distress. SKIN: Focused skin assessment warm/dry. HEAD: Atraumatic. Normocephalic. EYES: Pupils equal and round. No scleral icterus. No injection or drainage. ENT: No nasal bleeding or discharge. Mucous membranes pink and moist. NECK: Trachea midline. No JVD. CARDIOVASCULAR: Regular rate and rhythm. No murmur appreciated. RESPIRATORY: No accessory muscle use. Clear to auscultation. Breath sounds equal bilaterally. GASTROINTESTINAL: Abdomen soft, non-tender, nondistended. Hepatic and splenic margins not palpable. RECTAL exam: Minimal stool in the rectal vault, brown in color, no melena no gross blood, no hemorrhoids, fecal occult negative. MUSCULOSKELETAL: No obvious deformities. No clubbing. No cyanosis. No edema. NEUROLOGICAL: Awake and alert. No obvious cranial nerve deficits. Motor grossly within normal limits. Normal speech. PSYCHIATRIC: Appropriate mood and affect; insight and judgment normal. Data Data Last Documented VS Vital Signs Date Time Temp Pulse Resp B/P Pulse Ox O2 Delivery O2 Flow Rate FiO2 11/03/16 16:00 98.0 77 18 82/50 99 Room Air Orders Complete Blood Count With Diff (11/03/16 13:00) Comprehensive Metabolic Panel (11/03/16 13:00) Ammonia (11/03/16 13:00) Urinalysis - C+S If Indicated (11/03/16 13:00) Prothrombin Time / Inr (Pt) (11/03/16 13:00) Act Partial Throm Time (Ptt) (11/03/16 13:00) Levetiracetam (11/03/16 13:01) Type And Screen (11/03/16 13:54) Electrocardiogram (11/03/16 ) Troponin I (11/03/16 13:57) Sodium Chlor 0.9% 1000 Ml Inj (Ns 1000 M (11/03/16 14:00) Red Blood Cells (Rbc) (11/03/16 14:03) Blood Product Administration .UPON TRANSFUSION (11/03/16 14:03) Sodium Chlor 0.9% 250 Ml Inj (Ns 250 Ml (11/03/16 14:15) Ondansetron Inj (Zofran Inj) (11/03/16 15:15) Octreotide Inj (Sandostatin Inj) (11/03/16 15:15) Pantoprazole Inj (Protonix Inj) (11/03/16 15:15) Admit Order (Ed Use Only) (11/03/16 ) Consult Gastroenterology (11/03/16 ) Labs Laboratory Tests Test 11/03/16 11/03/16 11/03/16 11/03/16 13:25 13:30 13:40 14:03 Ammonia 30 MCMOL/L White Blood Count 5.7 TH/MM3 Red Blood Count 1.50 MIL/MM3 Hemoglobin 4.0 GM/DL Hematocrit 12.5 % Mean Corpuscular Volume 83.1 FL Mean Corpuscular Hemoglobin 26.9 PG Mean Corpuscular Hemoglobin 32.3 % Concent Red Cell Distribution Width 16.0 % Platelet Count 207 TH/MM3 Mean Platelet Volume 9.9 FL Neutrophils (%) (Auto) 64.5 % Lymphocytes (%) (Auto) 19.2 % Monocytes (%) (Auto) 14.5 % Eosinophils (%) (Auto) 1.0 % Basophils (%) (Auto) 0.8 % Neutrophils # (Auto) 3.7 TH/MM3 Lymphocytes # (Auto) 1.1 TH/MM3 Monocytes # (Auto) 0.8 TH/MM3 Eosinophils # (Auto) 0.1 TH/MM3 Basophils # (Auto) 0.0 TH/MM3 CBC Comment DIFF FINAL Differential Comment Prothrombin Time 12.4 SEC Prothromb Time International 1.1 RATIO Ratio Activated Partial 22.5 SEC Thromboplast Time Sodium Level 141 MEQ/L Potassium Level 4.0 MEQ/L Chloride Level 108 MEQ/L Carbon Dioxide Level 25.3 MEQ/L Anion Gap 8 MEQ/L Blood Urea Nitrogen 9 MG/DL Creatinine 0.96 MG/DL Estimat Glomerular Filtration 62 ML/MIN Rate Random Glucose 100 MG/DL Calcium Level 8.3 MG/DL Total Bilirubin 0.3 MG/DL Aspartate Amino Transf 43 U/L (AST/SGOT) Alanine Aminotransferase 30 U/L (ALT/SGPT) Alkaline Phosphatase 68 U/L Total Protein 7.1 GM/DL Albumin 2.8 GM/DL Blood Type O NEGATIVE Antibody Screen NEGATIVE Crossmatch Leukocyte-Reduced Red Blood Cells Blood Bank Comment MDM Medical Decision Making Medical Screen Exam Complete: Yes Emergency Medical Condition: Yes Interpretation(s) EKG shows sinus rhythm with prolonged QTC at 490, normal axis normal R-wave progression. No concerning ST segment abnormalities, intervals other than QT are within normal limits. This an abnormal EKG. Differential Diagnosis Syncopal episode, seizure unlikely, anemia, ACS, AMI. Narrative Course Patient was roomed in emergency department, found to have a hemoglobin of 4. 2 units of PRBCs were ordered and 2 and reserve. Patient was minimally hypotensive on arrival in the 70 systolic range, after fluid bolus her blood pressure is slowly increasing. She seems to be tolerating it quite well and I believe she stable for the floor. Patient was discussed with [facility] hospitalist on-call who agreed for admission. Critical Care Narrative Aggregate critical care time was 31 minutes. Time to perform other separately billable procedures was not included in the critical care time. My time did not include minutes spent treating any other patients simultaneously or on activities that did not directly contribute to the patient's treatment. The services I provided to this patient were to treat and/or prevent clinically significant deterioration that could result in: , disability, organ failure. I provided critical care services requiring my management, as noted below: Chart data review, documentation time, medication orders and management, vital sign assessments/reviewing monitor data, ordering and reviewing lab tests, ordering and interpreting/reviewing x-rays and diagnostic studies, care of the patient and discussion of the patient with the admitting physicians. Diagnosis Primary Impression: GI bleed Additional Impression: Anemia Admitting Information Admitting Physician Requests: Admit Condition: Stable Danial Hallman MD Nov 03, 2016 14:23
[2016-11-03] MEDS ORDERED: OCTREOTIDE INJ 100 MCG/ML VIAL IV PUSH ONE (15:15)
[2016-11-03] MEDS ORDERED: PANTOPRAZOLE SODIUM 40 MG VIAL IV PUSH ONE (15:15)
[2016-11-03] MEDS ORDERED: ONDANSETRON HCL 4 MG/2 ML VIAL IV PUSH ONE (15:15)
--- NOTE | 2016-11-03 16:23 | EKG ---
Date Performed: 11/03/2016 Time Performed: 14:11:04 PTAGE: 46 years EKG: Sinus rhythm NORMAL ECG PREVIOUS TRACING : 10/07/2016 21.26 No significant change from previous tracing noted. DOCTOR: Pedro Kaufman Interpretating Date/Time 11/03/2016 16:20:26
[2016-11-03] MEDS ORDERED: OCTREOTIDE INJ 500 MCG/ML AMP IV PUSH SCH (17:15)
[2016-11-03] MEDS ORDERED: SODIUM CHLORIDE 0.9% FLUSH 10 ML FLUSH IV FLUSH PRN (17:15)
[2016-11-03] MEDS ORDERED: LACTULOSE SYRUP 20 GM/30 ML CUP PO PRN (17:15)
[2016-11-03] MEDS ORDERED: NALOXONE HCL 0.4 MG/ML AMP IV PRN (17:15)
[2016-11-03] MEDS ORDERED: SENNOSIDES 8.6 MG TAB PO PRN (17:15)
[2016-11-03] MEDS ORDERED: BISACODYL 10 MG SUPP RECTAL PRN (17:15)
[2016-11-03] MEDS: SODIUM CHLOR 0.9% 1000 ML INJ 1,000 ML IV SCH (17:44)
--- NOTE | 2016-11-03 17:49 | PD.CONS ---
HPI History of Present Illness This is a 46 year old femal patient with known cirrhosis and varices of esophagus. she has had multiple GI bleeds in the past. None for the last 8 months. She has given up drinking alcohol for the last 70 days and is resolved not to drink alcohol anymore. She has hep C and wants to get treated once she has been off alcohol for 6 months. She came to ED because she feels weak. She noticed dark stools about one week ago but no dark stools since. No hematemesis. She has been anemic much of her life. She Does not feel sick. No abdominal pain. Stool checked in the ED was heme negative. ROS: no chest pain, sob, fever, chills, rash. Denies headache, sore throat, otherwise complete ros is negative.[]. PFSH Past Medical History cirrhosis, hypertension COPD Past Surgical History EGD in the past several times showing varices. Coded Allergies: *MDRO Multi-Drug Resistant Organism (Verified Adverse Reaction, Unknown, ) 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) Medications Current Medications Medications (Trade) Dose Ordered Sig/Baldo Route Start Time Stop Time Status Last Admin (NS 1000 ml Inj) 1,000 ml @ 100 mls/hr Q10H IV 11/03/16 17:10 (NS Flush) 2 ml UNSCH PRN IV FLUSH 11/03/16 17:15 (NS Flush) 2 ml BID IV FLUSH 11/03/16 21:00 (Zofran Inj) 4 mg Q6H PRN IVP 11/03/16 17:15 (Narcan Inj) 0.4 mg UNSCH PRN IV 11/03/16 17:15 (Senokot) 17.2 mg Q12H PRN PO 11/03/16 17:15 (Dulcolax Supp) 10 mg DAILY PRN RECTAL 11/03/16 17:15 (Lactulose Liq) 30 ml DAILY PRN PO 11/03/16 17:15 (Protonix Inj) 40 mg Q12H IV PUSH 11/03/16 21:00 (SandoSTATIN INJ) 250 mcg Q8HR IV PUSH 11/03/16 17:15 UNV Family History hypertension Social History Quit drinking. does not use illicit drugs GI Exam Vitals I&O Vital Signs Date Time Temp Pulse Resp B/P Pulse Ox O2 Delivery O2 Flow Rate FiO2 11/03/16 17:15 77 21 91/59 100 Room Air 11/03/16 16:00 98.0 77 18 82/50 99 Room Air 11/03/16 15:45 97.8 77 16 82/52 99 Room Air 11/03/16 15:31 75 21 119/53 100 Room Air 11/03/16 14:38 77 21 83/52 100 Room Air 11/03/16 13:48 98.1 74 17 74/47 100 Room Air 11/03/16 12:50 97.4 77 24 73/44 99 Room Air Laboratory Test 11/03/16 11/03/16 11/03/16 11/03/16 13:25 13:30 13:40 14:03 Ammonia 30 MCMOL/L White Blood Count 5.7 TH/MM3 Red Blood Count 1.50 MIL/MM3 Hemoglobin 4.0 GM/DL Hematocrit 12.5 % Mean Corpuscular Volume 83.1 FL Mean Corpuscular Hemoglobin 26.9 PG Mean Corpuscular Hemoglobin 32.3 % Concent Red Cell Distribution Width 16.0 % Platelet Count 207 TH/MM3 Mean Platelet Volume 9.9 FL Neutrophils (%) (Auto) 64.5 % Lymphocytes (%) (Auto) 19.2 % Monocytes (%) (Auto) 14.5 % Eosinophils (%) (Auto) 1.0 % Basophils (%) (Auto) 0.8 % Neutrophils # (Auto) 3.7 TH/MM3 Lymphocytes # (Auto) 1.1 TH/MM3 Monocytes # (Auto) 0.8 TH/MM3 Eosinophils # (Auto) 0.1 TH/MM3 Basophils # (Auto) 0.0 TH/MM3 CBC Comment DIFF FINAL Differential Comment Prothrombin Time 12.4 SEC Prothromb Time International 1.1 RATIO Ratio Activated Partial 22.5 SEC Thromboplast Time Sodium Level 141 MEQ/L Potassium Level 4.0 MEQ/L Chloride Level 108 MEQ/L Carbon Dioxide Level 25.3 MEQ/L Anion Gap 8 MEQ/L Blood Urea Nitrogen 9 MG/DL Creatinine 0.96 MG/DL Estimat Glomerular Filtration 62 ML/MIN Rate Random Glucose 100 MG/DL Calcium Level 8.3 MG/DL Total Bilirubin 0.3 MG/DL Aspartate Amino Transf 43 U/L (AST/SGOT) Alanine Aminotransferase 30 U/L (ALT/SGPT) Alkaline Phosphatase 68 U/L Total Protein 7.1 GM/DL Albumin 2.8 GM/DL Blood Type O NEGATIVE Antibody Screen NEGATIVE Crossmatch Leukocyte-Reduced Red Blood Cells Blood Bank Comment Physical Examination HEENT: Pupils round and reactive to light; normocephalic; atraumatic; no jaundice. Throat is clear. NECK: Neck is supple, no JVD, no lymphadenopathy. CHEST: Chest is clear to auscultation and percussion. CARDIAC: Regular rate and rhythm with no murmur gallop or rubs. ABDOMEN: Soft, nondistended, nontender; no hepatosplenomegaly; bowel sounds are present in all four quadrants. EXTREMITIES: No clubbing, cyanosis, or edema. SKIN: Normal; no rash; no jaundice. 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 Assessment and Plan Plan Impression: Severe anemia, heme negative without hematemesis Probably recent blood loss in stool Cirrhosis with history of esophageal varices Alcoholism, now sober 70days Low blood pressure. Recommend: Clear liquid diet now. NPO after midnight. EGD tomorrow. Further recommendations as the case progresses. Edgard Chavez MD Nov 03, 2016 17:49
[2016-11-03] MEDS ORDERED: ONDANSETRON PO PRN (18:30)
--- NOTE | 2016-11-03 18:46 | HHI.PR ---
Objective Objective Results - Vital Signs Date Time Temp Pulse Resp B/P Pulse Ox O2 Delivery O2 Flow Rate FiO2 11/03/16 18:30 83 16 87/55 99 Room Air 11/03/16 17:15 77 21 91/59 100 Room Air 11/03/16 16:00 98.0 77 18 82/50 99 Room Air 11/03/16 15:45 97.8 77 16 82/52 99 Room Air 11/03/16 15:31 75 21 119/53 100 Room Air 11/03/16 14:38 77 21 83/52 100 Room Air 11/03/16 13:48 98.1 74 17 74/47 100 Room Air 11/03/16 12:50 97.4 77 24 73/44 99 Room Air Result Diagram: 11/03/16 1330 11/03/16 1330 A/P Assessment and Plan [id number] SCDs, No anticoagulants due to hgb 4. PUD with IV protonix, Aliza Holguin Nov 03, 2016 18:46
[2016-11-03] MEDS: SODIUM CHLORIDE 0.9% FLUSH 10 ML FLUSH IV FLUSH SCH (21:00)
[2016-11-03] MEDS: LACTULOSE SYRUP 20 GM/30 ML CUP PO SCH (22:34)
[2016-11-03] MEDS: busPIRone HCL 5 MG TAB PO SCH (22:36)
[2016-11-03] MEDS: levETIRAcetam 500 MG TAB PO SCH (22:36)
[2016-11-03] MEDS: PANTOPRAZOLE SODIUM 40 MG VIAL IV PUSH SCH (22:38)
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
[2016-11-04] VITALS (12 sets, daily range): BP systolic 83–111; BP diastolic 52–67; PULSE 54–88; RESP 18–20; TEMP 97.2–98.8; O2SAT 90–98
[2016-11-04] MEDS: SODIUM CHLOR 0.9% 1000 ML INJ 1,000 ML IV SCH (03:10)
[2016-11-04 03:22] LABS: REVIEW FLAG FINAL
[2016-11-04 03:25] LABS: HEMATOCRIT 18.6 % (35.0-46.0)
[2016-11-04] MEDS ORDERED: SODIUM CHLOR 0.9% 250 ML INJ 250 ML IV ONE (04:00)
[2016-11-04] MEDS: ONDANSETRON HCL 4 MG/2 ML VIAL IVP PRN ×3 (04:47→19:02)
[2016-11-04] MEDS ORDERED: OCTREOTIDE INJ 100 MCG/ML VIAL IV PUSH SCH (06:00)
[2016-11-04] MEDS: SODIUM CHLORIDE 0.9% FLUSH 10 ML FLUSH IV FLUSH SCH ×2 (07:54→20:39)
[2016-11-04] MEDS: PANTOPRAZOLE SODIUM 40 MG VIAL IV PUSH SCH ×2 (07:54→10:00)
[2016-11-04] MEDS ORDERED: MISCELLANEOUS NURSING INFORMATION ONE (09:00)
[2016-11-04] MEDS ORDERED: FUROSEMIDE PO SCH (09:00)
[2016-11-04] MEDS: LACTULOSE SYRUP 20 GM/30 ML CUP PO SCH ×2 (09:00→20:39)
[2016-11-04] MEDS ORDERED: LEVOTHYROXINE PO SCH (09:00)
[2016-11-04] MEDS ORDERED: PROPOFOL 200 MG/20 ML AMP IV PUSH ONE (09:04)
--- NOTE | 2016-11-04 09:07 | HHI.GIFU ---
Subjective Remarks Immediate postop note: EGD with biopsy Indication: severe anemia, cirrhosis Meds: GET anesthesia Findings: Esophagus: grade 0-1 varices. Stomach: mild gastritis. Biopsy taken Duodenum: normal Impression No source of upper GI bleed Recommendation: Colonoscopy tomorrow. Objective Vitals I&O Vital Signs Date Time Temp Pulse Resp B/P Pulse Ox O2 Delivery O2 Flow Rate FiO2 11/04/16 06:21 98.3 78 18 92/56 96 11/04/16 06:05 98.1 75 18 91/54 93 11/04/16 05:50 97.9 72 18 90/59 95 11/04/16 04:00 98.0 66 18 85/52 97 92/54 11/04/16 00:00 70 20 90/56 98 11/03/16 23:46 73 18 90/52 95 11/03/16 23:10 74 11/03/16 22:00 98.1 78 22 90/54 98 11/03/16 19:30 81 18 81/50 98 Room Air 11/03/16 19:30 77 16 81/50 99 Room Air 11/03/16 19:10 98.8 76 18 89/56 99 Room Air 11/03/16 18:30 83 16 87/55 99 Room Air 11/03/16 17:15 77 21 91/59 100 Room Air 11/03/16 16:00 98.0 77 18 82/50 99 Room Air 11/03/16 15:45 97.8 77 16 82/52 99 Room Air 11/03/16 15:31 75 21 119/53 100 Room Air 11/03/16 14:38 77 21 83/52 100 Room Air 11/03/16 13:48 98.1 74 17 74/47 100 Room Air 11/03/16 12:50 97.4 77 24 73/44 99 Room Air I/O 11/03/16 11/03/16 11/03/16 11/04/16 11/04/16 11/04/16 07:00 15:00 23:00 07:00 15:00 23:00 Intake Total 430 ml 983 ml Balance 430 ml 983 ml Intake Oral 180 ml IV Total 983 ml Packed Cells 250 ml # Voids 1 Laboratory Laboratory Tests Test 11/03/16 11/03/16 11/03/16 11/03/16 13:25 13:30 13:40 14:03 Ammonia 30 White Blood Count 5.7 Red Blood Count 1.50 Hemoglobin 4.0 Hematocrit 12.5 Mean Corpuscular Volume 83.1 Mean Corpuscular Hemoglobin 26.9 Mean Corpuscular Hemoglobin 32.3 Concent Red Cell Distribution Width 16.0 Platelet Count 207 Mean Platelet Volume 9.9 Neutrophils (%) (Auto) 64.5 Lymphocytes (%) (Auto) 19.2 Monocytes (%) (Auto) 14.5 Eosinophils (%) (Auto) 1.0 Basophils (%) (Auto) 0.8 Neutrophils # (Auto) 3.7 Lymphocytes # (Auto) 1.1 Monocytes # (Auto) 0.8 Eosinophils # (Auto) 0.1 Basophils # (Auto) 0.0 CBC Comment DIFF FINAL Differential Comment Prothrombin Time 12.4 Prothromb Time International 1.1 Ratio Activated Partial 22.5 Thromboplast Time Sodium Level 141 Potassium Level 4.0 Chloride Level 108 Carbon Dioxide Level 25.3 Anion Gap 8 Blood Urea Nitrogen 9 Creatinine 0.96 Estimat Glomerular Filtration 62 Rate Random Glucose 100 Calcium Level 8.3 Total Bilirubin 0.3 Aspartate Amino Transf 43 (AST/SGOT) Alanine Aminotransferase 30 (ALT/SGPT) Alkaline Phosphatase 68 Troponin I LESS THAN 0.02 Total Protein 7.1 Albumin 2.8 Blood Type O NEGATIVE Antibody Screen NEGATIVE Crossmatch Leukocyte-Reduced Red Blood Cells Blood Bank Comment Test 11/04/16 11/04/16 03:11 04:09 Hemoglobin 6.2 Hematocrit 18.6 Blood Type O NEGATIVE Crossmatch Leukocyte-Reduced Red Blood Cells Blood Bank Comment Physical Exam HEENT: Pupils round and reactive to light; normocephalic; atraumatic; no jaundice. Throat is clear. NECK: Neck is supple, no JVD, no lymphadenopathy. CHEST: Chest is clear to auscultation and percussion. CARDIAC: Regular rate and rhythm with no murmur gallop or rubs. ABDOMEN: Soft, nondistended, nontender; no hepatosplenomegaly; bowel sounds are present in all four quadrants. EXTREMITIES: No clubbing, cyanosis, or edema. SKIN: Normal; no rash; no jaundice. PROJECT MANAGER: No focal deficits; alert and oriented times three. Assessment and Plan Plan Impression: Severe anemia, heme negative without hematemesis Probably recent blood loss in stool Cirrhosis with history of esophageal varices Alcoholism, now sober 70days Low blood pressure. EGD on 11/04 shows no upper gi source of bleeding Recommend: DC octreotide. Protonix 40mg IV daily Colonoscopy tomorrow. prep today Clear liquid diet now. NPO after midnight. CT abdomen and pelvis with PO and IV contrast Further recommendations as the case progresses. Edgard Chavez MD Nov 04, 2016 09:07
[2016-11-04] MEDS ORDERED: DO NOT ADM ANY ANTICOAGULANT DRUGS PRN (09:25)
[2016-11-04] MEDS ORDERED: DIATRIZOATE MEGLUM/DIATRIZOATE SOD 9 ML CUP PO ONE (09:45)
[2016-11-04] MEDS ORDERED: PEG (High)/E-LYTE SOLN 4000 ML BTL PO ONE (10:00)
[2016-11-04] MEDS ORDERED: ePHEDrine/NS 25 MG/5 ML SYR IV ONE (12:00)
[2016-11-04] MEDS ORDERED: PHENYLEPH/NS 1000 MCG/10 ML SYR IV ONE (12:00)
[2016-11-04] MEDS: levETIRAcetam 500 MG TAB PO SCH ×2 (13:04→20:38)
[2016-11-04] MEDS: busPIRone HCL 5 MG TAB PO SCH ×2 (13:04→20:39)
[2016-11-04] MEDS: FOLIC ACID 1 MG TAB PO SCH (13:04)
--- NOTE | 2016-11-04 15:56 | MP ---
cc: EDGARD CHAVEZ MD, MAZHAR MD DATE OF SURGERY 11/04/2016 PROCEDURE Esophagogastroduodenoscopy with biopsy. INDICATION Severe anemia and cirrhosis, referred by Dr. Goodrich. PROCEDURE IN DETAIL After informed consent was obtained the patient was placed in the supine position. She was given anesthesia with general endotracheal tube. She was then turned into the left side down position. After adequate sedation was achieved the Pentax video gastroscope was inserted in the oropharynx and advanced to the esophagus, stomach and duodenum. The scope was then slowly withdrawn examining the mucosal surfaces carefully. A retroflex exam was performed in the fundus and cardia. The scope was then straightened. There was no evidence of GI bleeding and no bleeding lesions. Biopsy was obtained from the gastric antrum for histologic evaluation. The scope was then withdrawn slowly through the esophagus and the procedure was terminated. She was then extubated and taken to the recovery area in stable condition. FINDINGS 1. In the esophagus there were minimal varices present, grade zero to 1. 2. In the stomach there was mild gastritis. Biopsies were taken from the antrum. 3. The duodenum was normal. IMPRESSION 1. No source of upper GI bleed is seen. 2. Small esophageal varices. 3. Gastritis. PLAN 1. Will proceed with a colonoscopy tomorrow. 2. Will obtain a CT scan of the abdomen and pelvis with IV and p.o. contrast. Edgard Chavez MD [facility]/EO /9:29 AM /3:54 PM
[2016-11-04] MEDS ORDERED: IOHEXOL 350 MG/ML 10 ML VIAL (for RAD DIAG) IV ONE (17:40)
--- NOTE | 2016-11-04 17:52 | RADRPT ---
EXAM DATE/TIME: 11/04/2016 17:27 [place] COMPARISON: CT ABDOMEN & PELVIS W CONTRAST, October 07, 2016, 22:32. INDICATIONS : Evaluate for ascites. IV CONTRAST: 100 cc Omnipaque 350 (iohexol) IV ORAL CONTRAST: Prescribed oral contrast ingested. RADIATION DOSE: 9.96 CTDIvol (mGy) MEDICAL HISTORY : Hypertension. Chronic obstructive pulmonary disease. Cirrhosis.Esophageal varicies. SURGICAL HISTORY : None. ENCOUNTER: Initial ACUITY: 1 month PAIN SCALE: 5/10 LOCATION: Bilateral upper quadrant TECHNIQUE: Volumetric scanning of the abdomen and pelvis was performed. Using automated exposure control and ad justment of the mA and/or kV according to patient size, radiation dose was kept as low as reasonably achievable to obtain optimal diagnostic quality images. DICOM format image data is available electro nically for review and comparison. FINDINGS: `The spleen is enlarged measuring 14.4 cm in craniocaudal dimension without focal lesions for te [place] and there is early enhancement artifact within the spleen. Again noted is cirrhosis with vari bonilla involving the gastroesophageal junction not changet. Tiny bilateral pleural effusions and bibasil ar deep tendon atelectasis is identified not present previously. There is slight ascites and slightly increased since the prior examination in the perihepatic space and bilateral paracolic gutters. The gallbladder demonstrates multiple stones without gallbladder wall thickening, or pericholecystic flui d. There is slight prominence of loops of small bowel, however not particularly dilated with maximum diameter of 3 cm. The pancreas, kidneys, adrenals are unremarkable. There are degenerative changes in volving the left acetabulum in the region of the acetabular labrum. CONCLUSION: Interval development of tiny bilateral pleural effusions and slight increase in ascites since the faheem or exam. Lobito Farmer MD on November 04, 2016 at 17:44 Board Certified Radiologist. This report was verified electronically.
[2016-11-04] MEDS: ACETAMINOPHEN/HYDROcodone 325 MG/5 MG TAB PO PRN (18:44)
--- NOTE | 2016-11-04 21:45 | HHI.PR ---
Subjective History of Present Illness patient c/o abdominal distension and pain , started on pain medicine no other complaints Review of Systems Constitutional Constitutional: Fatigue, Weakness GI/Abdomen GI/Abdomen Remarks abdominal distension. Vitals/Results Intake & Output 11/03/16 11/03/16 11/04/16 15:00 23:00 07:00 Intake Total 430 ml Balance 430 ml Intake Oral 180 ml Packed Cells 250 ml # Voids 1 Vital Signs Vital Signs Date Time Temp Pulse Resp B/P Pulse Ox O2 Delivery O2 Flow Rate FiO2 11/04/16 20:00 97.8 54 20 111/64 94 11/04/16 16:00 97.6 58 20 83/54 96 11/04/16 14:30 98.8 88 18 94/58 96 11/04/16 12:15 97.8 80 18 105/67 93 11/04/16 12:00 97.2 74 20 99/61 97 11/04/16 11:42 97.2 74 20 99/61 97 11/04/16 10:00 98.0 90 16 120/75 98 Nasal Cannula 2 11/04/16 09:45 95 16 123/77 97 Nasal Cannula 2 11/04/16 09:30 98 15 130/84 96 Nasal Cannula 2 11/04/16 09:20 98.1 101 20 142/85 98 Nasal Cannula 3 11/04/16 08:00 82 11/04/16 08:00 98.0 76 20 102/56 90 11/04/16 06:21 98.3 78 18 92/56 96 11/04/16 06:05 98.1 75 18 91/54 93 11/04/16 05:50 97.9 72 18 90/59 95 11/04/16 04:00 98.0 66 18 85/52 97 92/54 11/04/16 00:00 70 20 90/56 98 11/03/16 23:46 73 18 90/52 95 11/03/16 23:10 74 11/03/16 22:00 98.1 78 22 90/54 98 CBC/BMP: 11/04/16 0311 11/03/16 1330 Lab Results Laboratory Tests Test 11/04/16 11/04/16 03:11 04:09 Hemoglobin 6.2 GM/DL Hematocrit 18.6 % Blood Type O NEGATIVE Crossmatch Leukocyte-Reduced Red Blood Cells Blood Bank Comment Physical Exam General General Appearance: No Acute Distress, Comfortable Eyes Eye Exam: Pupils Equal, Pupils Reactive, Extraocular Movement Intact Throat Throat Exam: Oral Mucosa [place] & Moist, Oral Pharynx Normal Neck Neck Exam: Neck Supple, Trachea Midline Pulmonary Resp Exam: Clear Bilaterally, Breath Sounds Equal Cardiology CV Exam: Regular, Normal Sinus Rhythm Gastrointestinal/Abdomen GI Remarks Massive Ascities. Musculoskeletal MS Exam: Normal Tone Integumentary Skin Exam: Clear, Warm, Dry, Intact Neurologic Neuro Exam: Alert, Awake, Oriented, Speech Clear, Moving All Extremities, No Focal Deficits Psychiatric Psych Exam: Appropriate Responses VTE Prophylaxis VTE Prophylaxis Device: SCDs PUD Prophylasis PUD Prophylaxis: Protonix Assessment/Plan Assessment/Plan ASSESSMENT 1. Severe anemia. 2. Probable gastrointestinal bleed. 3. Liver cirrhosis. 4. History of polysubstance abuse. 5. History of esophageal varices. 6. History of bipolar disorder. 7. Hypocalcemia. 8. Elevated AST level. 9. History of possible gallbladder disease. on a clear liquid diet with ice chips. The patient has two units of packed red blood cells which will be transfused tonight. She will receive IV Protonix every 12 hours. Sandostatin injection 250 mics q.8h. In the emergency room the patient did receive one dose of Sandostatin, Protonix 80 milligrams IV, IV fluids 250 cc bolus at 15 an hour times one and one liter bolus to assist in stabilizing her blood pressure. Bowel regimen will be monitored. GI following for their opinion. The patient will be n.p.o. tonight and the plan is to an Endoscopy in the morning. The patient will have as needed medications for pain, nausea. Vital signs at least q.4h. The patient's blood pressure is trending up and has been greater than 90 for over an hour. She is alert and oriented and cooperative. She will have hemoglobin and hematocrit q.6h. She is currently stable. She is currently in stable condition with a serious anemia that is currently being corrected. To my knowledge she is full code, full aggressive care and we will follow. Discussed Condition with: Patient Dhaval Conley MD Nov 04, 2016 21:44
[2016-11-05] VITALS: BP_SYST 104; BP_SYST 96; BP_DIAS 68; PULSE 59; RESP 20; TEMP 97.6; O2SAT 97
[2016-11-05 00:20] LABS: HEMATOCRIT 29.8 % (35.0-46.0); REVIEW FLAG FINAL
[2016-11-05] MEDS: SODIUM CHLOR 0.9% 1000 ML INJ 1,000 ML IV SCH ×2 (00:28→19:10)
[2016-11-05] MEDS: ACETAMINOPHEN/HYDROcodone 325 MG/5 MG TAB PO PRN ×4 (02:34→22:30)
[2016-11-05] MEDS: ONDANSETRON HCL 4 MG/2 ML VIAL IVP PRN ×2 (02:53→12:10)
[2016-11-05 04:00] VITALS: BP 97/58; PULSE 61; RESP 20; TEMP 97.8; O2SAT 95
[2016-11-05 08:00] VITALS: BP 97/64; PULSE 67; PULSE 83; RESP 16; TEMP 97.8; O2SAT 92
[2016-11-05] MEDS: SODIUM CHLORIDE 0.9% FLUSH 10 ML FLUSH IV FLUSH SCH ×2 (09:00→22:31)
[2016-11-05] MEDS ORDERED: PROPOFOL 200 MG/20 ML AMP IV PUSH ONE (09:46)
--- NOTE | 2016-11-05 09:59 | HHI.GIFU ---
Subjective Remarks Immediate postop note: Colonoscopy Indication: Severe anemia Meds: MAC Findings: Cecum: normal Colon: normal Rectum: normal Prep was suboptimal but with irrigation and suction, good exam was obtained. Objective Vitals I&O Vital Signs Date Time Temp Pulse Resp B/P Pulse Ox O2 Delivery O2 Flow Rate FiO2 11/05/16 08:00 97.8 67 16 97/64 92 11/05/16 04:00 97.8 61 20 97/58 95 11/05/16 00:00 97.6 59 20 104/68 97 11/04/16 20:00 57 11/04/16 20:00 97.8 54 20 111/64 94 11/04/16 16:00 97.6 58 20 83/54 96 11/04/16 14:30 98.8 88 18 94/58 96 11/04/16 12:15 97.8 80 18 105/67 93 11/04/16 12:00 97.2 74 20 99/61 97 11/04/16 11:42 97.2 74 20 99/61 97 11/04/16 10:00 98.0 90 16 120/75 98 Nasal Cannula 2 I/O 11/04/16 11/04/16 11/04/16 11/05/16 11/05/16 11/05/16 07:00 15:00 23:00 07:00 15:00 23:00 Intake Total 1963 ml 420 ml 1027 ml Output Total 0 ml 0 ml Balance 1963 ml 420 ml 1027 ml Intake Oral 480 ml 420 ml 0 ml IV Total 1083 ml 1027 ml Other 400 ml Output Urine Total 0 ml Estimated Blood Loss 0 ml # Voids 2 3 # Bowel Movements 1 3 Laboratory Laboratory Tests Test 11/05/16 00:01 Hemoglobin 9.7 Hematocrit 29.8 Physical Exam HEENT: Pupils round and reactive to light; normocephalic; atraumatic; no jaundice. Throat is clear. NECK: Neck is supple, no JVD, no lymphadenopathy. CHEST: Chest is clear to auscultation and percussion. CARDIAC: Regular rate and rhythm with no murmur gallop or rubs. ABDOMEN: Soft, nondistended, nontender; no hepatosplenomegaly; bowel sounds are present in all four quadrants. EXTREMITIES: No clubbing, cyanosis, or edema. SKIN: Normal; no rash; no jaundice. LIDAR SCIENTIST: No focal deficits; alert and oriented times three. Assessment and Plan Plan Impression: Severe anemia, heme negative without hematemesis Probably recent blood loss in stool Cirrhosis with history of esophageal varices Alcoholism, now sober 70days Low blood pressure. EGD on 11/04 shows no upper gi source of bleeding Colonoscopy on 11/05 shows no abnormality Recommend: Protonix 40mg IV daily Pt should be ready for discharge if otherwise stable. Followup in office in 2- 3 weeks. Iron supplementation. Edgard Chavez MD Nov 05, 2016 09:59
[2016-11-05] MEDS: levETIRAcetam 500 MG TAB PO SCH ×2 (10:27→22:29)
[2016-11-05] MEDS: FOLIC ACID 1 MG TAB PO SCH (10:27)
[2016-11-05] MEDS: busPIRone HCL 5 MG TAB PO SCH ×2 (10:27→22:29)
[2016-11-05] MEDS: PANTOPRAZOLE SODIUM 40 MG VIAL IV PUSH SCH (10:28)
[2016-11-05] MEDS: LACTULOSE SYRUP 20 GM/30 ML CUP PO SCH ×2 (10:28→22:31)
[2016-11-05 12:00] VITALS: BP 110/66; PULSE 57; RESP 16; TEMP 97.4; O2SAT 93
--- NOTE | 2016-11-05 14:00 | MR ---
cc: GERSON MCKEON MD,EDGARD Urbina JR., MD DATE: 11/05/2016 PROCEDURE Colonoscopy. INDICATION Severe anemia with dark stools. DETAILS OF PROCEDURE After informed consent was obtained the patient was placed in the left side down position. She was sedated by the anesthesia service. After adequate sedation was achieved the Pentax video colonoscope was inserted in the anal canal and advanced to the colon reaching the cecum. The scope was then slowly withdrawn examining the mucosal surfaces carefully. Copious washing and suctioning was performed to obtain a good examination. In the rectum a retroflex exam was performed. The scope was then straightened and pulled through the anal canal and the procedure was terminated. She tolerated the procedure well and was returned to the recovery area in good condition. FINDINGS 1. The cecum was normal. 2. The colon was normal. 3. The rectum was normal. 4. The prep was suboptimal but with copious washing and suctioning a good examination was obtained and no potentially bleeding sites were seen. IMPRESSION Normal colonoscopy. PLAN 1. The patient should be ready for discharge. 2. Her CT scan was negative except for some ascites and pleural effusion which is expected. 3. The patient should follow-up in the office in 2 weeks. 4. She should be on iron supplementation. Edgard Chavez MD [facility] /10:12 AM /1:53 PM
[2016-11-05 16:00] VITALS: BP 116/65; PULSE 68; RESP 16; TEMP 98.2; O2SAT 96
[2016-11-05 20:00] VITALS: BP 111/77; PULSE 55; RESP 20; TEMP 97.6; O2SAT 96
[2016-11-06] VITALS: BP_SYST 90; BP_SYST 93; BP_DIAS 53; BP_DIAS 58; PULSE 66; RESP 20; TEMP 97.6; O2SAT 96
[2016-11-06] MEDS: ONDANSETRON HCL 4 MG/2 ML VIAL IVP PRN ×3 (01:05→18:20)
[2016-11-06 04:00] VITALS: BP 102/62; PULSE 73; RESP 20; TEMP 97.8; O2SAT 93
[2016-11-06] MEDS: SODIUM CHLOR 0.9% 1000 ML INJ 1,000 ML IV SCH ×2 (05:10→15:06)
[2016-11-06] MEDS: ACETAMINOPHEN/HYDROcodone 325 MG/5 MG TAB PO PRN ×3 (05:15→18:03)
[2016-11-06 06:13] LABS: AUTOMATED NEUTROPHIL # 3.3 TH/MM3 (1.8-7.7); BASOPHIL % 0.8 % (0.0-2.0); EOSINOPHIL # 0.1 TH/MM3 (0-0.4); EOSINOPHIL % 2.4 % (0.0-4.0); HEMATOCRIT 29.2 % (35.0-46.0); HEMO FLAGS DIFF FINAL; LYMPH % 19.4 % (9.0-44.0); MEAN CELL VOLUME 85.3 FL (80.0-100.0); MEAN CORPUSCULAR HEMOGLOBIN 28.2 PG (27.0-34.0); MEAN CORPUSCULAR HGB CONC 33.1 % (32.0-36.0); MONO % 12.7 % (0.0-8.0); NEUT % 64.7 % (16.0-70.0); PLATELET COUNT 184 TH/MM3 (150-450); RED BLOOD COUNT 3.42 MIL/MM3 (4.00-5.30); RED CELL DISTRIBUTION WIDTH 16.8 % (11.6-17.2); WHITE BLOOD COUNT 5.2 TH/MM3 (4.0-11.0)
[2016-11-06 06:34] LABS: ANION GAP 6 MEQ/L (5-15); AST (GOT) 46 U/L (15-37); BICARBONATE 24.7 MEQ/L (21.0-32.0); BLOOD UREA NITROGEN 7 MG/DL (7-18); CHLORIDE 107 MEQ/L (98-107); GLOMERULAR FILTRATION RATE 67 ML/MIN (>89); POTASSIUM 3.6 MEQ/L (3.5-5.1); SODIUM (NA) 138 MEQ/L (136-145)
[2016-11-06 06:36] LABS: ALT (GPT) 30 U/L (10-53)
[2016-11-06 06:37] LABS: ALKALINE PHOSPHATASE 102 U/L (45-117); TOTAL BILIRUBIN ADULT 0.6 MG/DL (0.2-1.0)
[2016-11-06 08:00] VITALS: BP 94/54; PULSE 58; RESP 20; TEMP 97.7; O2SAT 94
--- NOTE | 2016-11-06 08:43 | HHI.PR ---
Subjective History of Present Illness patient seen on ..c/o abdominal distension and pain , started on pain medicine no other complaints s/p endoscopy.. Review of Systems Constitutional Constitutional: Fatigue, Weakness GI/Abdomen GI/Abdomen Remarks abdominal distension. Vitals/Results Intake & Output 11/05/16 11/05/16 11/06/16 15:00 23:00 07:00 Intake Total 630 ml 480 ml 600 ml Output Total 2 ml Balance 630 ml 480 ml 598 ml Intake Oral 480 ml 480 ml 600 ml Other 150 ml Output Urine Total 2 ml # Voids 1 2 Vital Signs Vital Signs Date Time Temp Pulse Resp B/P Pulse Ox O2 Delivery O2 Flow Rate FiO2 11/06/16 04:00 97.8 73 20 102/62 93 11/06/16 00:00 97.6 66 20 93/53 96 90/58 11/05/16 20:00 97.6 55 20 111/77 96 11/05/16 16:00 98.2 68 16 116/65 96 11/05/16 12:00 97.4 57 16 110/66 93 11/05/16 10:03 69 18 107/64 94 11/05/16 09:57 63 18 98/64 94 11/05/16 09:47 97.7 71 18 96/60 93 CBC/BMP: 11/06/16 0515 11/06/16 0515 Lab Results Laboratory Tests Test 11/06/16 05:15 White Blood Count 5.2 TH/MM3 Red Blood Count 3.42 MIL/MM3 Hemoglobin 9.7 GM/DL Hematocrit 29.2 % Mean Corpuscular Volume 85.3 FL Mean Corpuscular Hemoglobin 28.2 PG Mean Corpuscular Hemoglobin 33.1 % Concent Red Cell Distribution Width 16.8 % Platelet Count 184 TH/MM3 Mean Platelet Volume 9.5 FL Neutrophils (%) (Auto) 64.7 % Lymphocytes (%) (Auto) 19.4 % Monocytes (%) (Auto) 12.7 % Eosinophils (%) (Auto) 2.4 % Basophils (%) (Auto) 0.8 % Neutrophils # (Auto) 3.3 TH/MM3 Lymphocytes # (Auto) 1.0 TH/MM3 Monocytes # (Auto) 0.7 TH/MM3 Eosinophils # (Auto) 0.1 TH/MM3 Basophils # (Auto) 0.0 TH/MM3 CBC Comment DIFF FINAL Differential Comment Sodium Level 138 MEQ/L Potassium Level 3.6 MEQ/L Chloride Level 107 MEQ/L Carbon Dioxide Level 24.7 MEQ/L Anion Gap 6 MEQ/L Blood Urea Nitrogen 7 MG/DL Creatinine 0.90 MG/DL Estimat Glomerular Filtration 67 ML/MIN Rate Random Glucose 93 MG/DL Calcium Level 7.8 MG/DL Total Bilirubin 0.6 MG/DL Aspartate Amino Transf 46 U/L (AST/SGOT) Alanine Aminotransferase 30 U/L (ALT/SGPT) Alkaline Phosphatase 102 U/L Total Protein 6.9 GM/DL Albumin 2.8 GM/DL Physical Exam General General Appearance: No Acute Distress, Comfortable Eyes Eye Exam: Pupils Equal, Pupils Reactive, Extraocular Movement Intact Throat Throat Exam: Oral Mucosa [place] & Moist, Oral Pharynx Normal Neck Neck Exam: Neck Supple, Trachea Midline Pulmonary Resp Exam: Clear Bilaterally, Breath Sounds Equal Cardiology CV Exam: Regular, Normal Sinus Rhythm Gastrointestinal/Abdomen GI Remarks Massive Ascities. Musculoskeletal MS Exam: Normal Tone Integumentary Skin Exam: Clear, Warm, Dry, Intact Neurologic Neuro Exam: Alert, Awake, Oriented, Speech Clear, Moving All Extremities, No Focal Deficits Psychiatric Psych Exam: Appropriate Responses VTE Prophylaxis VTE Prophylaxis Device: SCDs PUD Prophylasis PUD Prophylaxis: Protonix Assessment/Plan Assessment/Plan ASSESSMENT 1. Severe anemia. 2. Probable gastrointestinal bleed. 3. Liver cirrhosis. 4. History of polysubstance abuse. 5. History of esophageal varices. 6. History of bipolar disorder. 7. Hypocalcemia. 8. Elevated AST level. 9. History of possible gallbladder disease. on a clear liquid diet with ice chips. The patient has two units of packed red blood cells which will be transfused tonight. She will receive IV Protonix every 12 hours. Sandostatin injection 250 mics q.8h. In the emergency room the patient did receive one dose of Sandostatin, Protonix 80 milligrams IV, IV fluids 250 cc bolus at 15 an hour times one and one liter bolus to assist in stabilizing her blood pressure. Bowel regimen will be monitored. GI following for their opinion. The patient s/p an Endoscopy in the morning. The patient will have as needed medications for pain, nausea. Vital signs at least q.4h. The patient's blood pressure is trending up and has been greater than 90 for over an hour. She is alert and oriented and cooperative. She will have hemoglobin and hematocrit q.6h. She is currently stable. She is currently in stable condition with a serious anemia that is currently being corrected. To my knowledge she is full code, full aggressive care and we will follow. Discussed Condition with: Patient Dhaval Conley MD Nov 06, 2016 08:43
--- NOTE | 2016-11-06 08:49 | HHI.PR ---
Subjective History of Present Illness patient c/o abdominal distension and pain , started on pain medicine no other complaints s/p colonoscopy consult general surgery for gall stone. Review of Systems Constitutional Constitutional: Fatigue, Weakness GI/Abdomen GI/Abdominal Exam: Abdominal Pain GI/Abdomen Remarks abdominal distension. Vitals/Results Intake & Output 11/05/16 11/05/16 11/06/16 15:00 23:00 07:00 Intake Total 630 ml 480 ml 600 ml Output Total 2 ml Balance 630 ml 480 ml 598 ml Intake Oral 480 ml 480 ml 600 ml Other 150 ml Output Urine Total 2 ml # Voids 1 2 Vital Signs Vital Signs Date Time Temp Pulse Resp B/P Pulse Ox O2 Delivery O2 Flow Rate FiO2 11/06/16 04:00 97.8 73 20 102/62 93 11/06/16 00:00 97.6 66 20 93/53 96 90/58 11/05/16 20:00 97.6 55 20 111/77 96 11/05/16 16:00 98.2 68 16 116/65 96 11/05/16 12:00 97.4 57 16 110/66 93 11/05/16 10:03 69 18 107/64 94 11/05/16 09:57 63 18 98/64 94 11/05/16 09:47 97.7 71 18 96/60 93 CBC/BMP: 11/06/16 0515 11/06/16 0515 Lab Results Laboratory Tests Test 11/06/16 05:15 White Blood Count 5.2 TH/MM3 Red Blood Count 3.42 MIL/MM3 Hemoglobin 9.7 GM/DL Hematocrit 29.2 % Mean Corpuscular Volume 85.3 FL Mean Corpuscular Hemoglobin 28.2 PG Mean Corpuscular Hemoglobin 33.1 % Concent Red Cell Distribution Width 16.8 % Platelet Count 184 TH/MM3 Mean Platelet Volume 9.5 FL Neutrophils (%) (Auto) 64.7 % Lymphocytes (%) (Auto) 19.4 % Monocytes (%) (Auto) 12.7 % Eosinophils (%) (Auto) 2.4 % Basophils (%) (Auto) 0.8 % Neutrophils # (Auto) 3.3 TH/MM3 Lymphocytes # (Auto) 1.0 TH/MM3 Monocytes # (Auto) 0.7 TH/MM3 Eosinophils # (Auto) 0.1 TH/MM3 Basophils # (Auto) 0.0 TH/MM3 CBC Comment DIFF FINAL Differential Comment Sodium Level 138 MEQ/L Potassium Level 3.6 MEQ/L Chloride Level 107 MEQ/L Carbon Dioxide Level 24.7 MEQ/L Anion Gap 6 MEQ/L Blood Urea Nitrogen 7 MG/DL Creatinine 0.90 MG/DL Estimat Glomerular Filtration 67 ML/MIN Rate Random Glucose 93 MG/DL Calcium Level 7.8 MG/DL Total Bilirubin 0.6 MG/DL Aspartate Amino Transf 46 U/L (AST/SGOT) Alanine Aminotransferase 30 U/L (ALT/SGPT) Alkaline Phosphatase 102 U/L Total Protein 6.9 GM/DL Albumin 2.8 GM/DL Physical Exam General General Appearance: No Acute Distress, Comfortable Eyes Eye Exam: Pupils Equal, Pupils Reactive, Extraocular Movement Intact Throat Throat Exam: Oral Mucosa [place] & Moist, Oral Pharynx Normal Neck Neck Exam: Neck Supple, Trachea Midline Pulmonary Resp Exam: Clear Bilaterally, Breath Sounds Equal Cardiology CV Exam: Regular, Normal Sinus Rhythm Gastrointestinal/Abdomen GI Remarks Massive Ascities. Musculoskeletal MS Exam: Normal Tone Integumentary Skin Exam: Clear, Warm, Dry, Intact Neurologic Neuro Exam: Alert, Awake, Oriented, Speech Clear, Moving All Extremities, No Focal Deficits Psychiatric Psych Exam: Appropriate Responses VTE Prophylaxis VTE Prophylaxis Device: SCDs PUD Prophylasis PUD Prophylaxis: Protonix Assessment/Plan Assessment/Plan ASSESSMENT 1. Severe anemia. 2. Probable gastrointestinal bleed. 3. Liver cirrhosis. 4. History of polysubstance abuse. 5. History of esophageal varices. 6. History of bipolar disorder. 7. Hypocalcemia. 8. Elevated AST level. 9. History of possible gallbladder stone./ consult general surgery for gall stone. on a clear liquid diet with ice chips. s/p two units of packed red blood cells transfusion . She will receive IV Protonix every 24 hours. Sandostatin injection 250 mics q.8h. Bowel regimen will be monitored. GI following for their opinion. The patient s/p colonoscopy within normal limits. The patient will have as needed medications for pain, nausea. She is alert and oriented and cooperative. She will have hemoglobin and hematocrit q.6h. She is currently stable. She is currently in stable condition with a serious anemia that is currently being corrected. To my knowledge she is full code, full aggressive care and we will follow. General surgery consulted for gall stones Discussed Condition with: Patient Dhaval Conley MD Nov 06, 2016 08:49 Dhaval Conley MD Nov 06, 2016 08:49
[2016-11-06] MEDS: LACTULOSE SYRUP 20 GM/30 ML CUP PO SCH ×2 (09:22→21:08)
[2016-11-06] MEDS: busPIRone HCL 5 MG TAB PO SCH ×2 (09:23→21:08)
[2016-11-06] MEDS: FOLIC ACID 1 MG TAB PO SCH (09:23)
[2016-11-06] MEDS: levETIRAcetam 500 MG TAB PO SCH ×2 (09:23→21:08)
[2016-11-06] MEDS: SODIUM CHLORIDE 0.9% FLUSH 10 ML FLUSH IV FLUSH SCH ×2 (09:23→21:09)
[2016-11-06] MEDS: PANTOPRAZOLE SODIUM 40 MG VIAL IV PUSH SCH (09:24)
[2016-11-06 12:00] VITALS: BP 111/59; PULSE 61; RESP 20; TEMP 97.5; O2SAT 93
[2016-11-06 16:00] VITALS: BP 105/68; PULSE 48; RESP 20; TEMP 97.7; O2SAT 95
--- NOTE | 2016-11-06 16:06 | HHI.GIFU ---
Subjective Remarks Pt sitting OOB, visiting with partner. Says she has some discomfort all over her abd, some nausea but no vomiting. Is eating ok. (Lorena Gibson) Objective Vitals I&O Vital Signs Date Time Temp Pulse Resp B/P Pulse Ox O2 Delivery O2 Flow Rate FiO2 11/06/16 12:00 Room Air 11/06/16 12:00 97.5 61 20 111/59 93 11/06/16 08:20 Room Air 11/06/16 08:00 97.7 58 20 94/54 94 11/06/16 04:00 97.8 73 20 102/62 93 11/06/16 00:00 97.6 66 20 93/53 96 90/58 11/05/16 20:00 97.6 55 20 111/77 96 I/O 11/05/16 11/05/16 11/05/16 11/06/16 11/06/16 11/06/16 07:00 15:00 23:00 07:00 15:00 23:00 Intake Total 1027 ml 630 ml 480 ml 600 ml 2 ml Output Total 2 ml Balance 1027 ml 630 ml 480 ml 598 ml 2 ml Intake Oral 0 ml 480 ml 480 ml 600 ml IV Total 1027 ml 2 ml Other 150 ml Output Urine Total 2 ml # Voids 3 1 2 # Bowel Movements 3 Laboratory Laboratory Tests Test 11/06/16 05:15 White Blood Count 5.2 Red Blood Count 3.42 Hemoglobin 9.7 Hematocrit 29.2 Mean Corpuscular Volume 85.3 Mean Corpuscular Hemoglobin 28.2 Mean Corpuscular Hemoglobin 33.1 Concent Red Cell Distribution Width 16.8 Platelet Count 184 Mean Platelet Volume 9.5 Neutrophils (%) (Auto) 64.7 Lymphocytes (%) (Auto) 19.4 Monocytes (%) (Auto) 12.7 Eosinophils (%) (Auto) 2.4 Basophils (%) (Auto) 0.8 Neutrophils # (Auto) 3.3 Lymphocytes # (Auto) 1.0 Monocytes # (Auto) 0.7 Eosinophils # (Auto) 0.1 Basophils # (Auto) 0.0 CBC Comment DIFF FINAL Differential Comment Sodium Level 138 Potassium Level 3.6 Chloride Level 107 Carbon Dioxide Level 24.7 Anion Gap 6 Blood Urea Nitrogen 7 Creatinine 0.90 Estimat Glomerular Filtration 67 Rate Random Glucose 93 Calcium Level 7.8 Total Bilirubin 0.6 Aspartate Amino Transf 46 (AST/SGOT) Alanine Aminotransferase 30 (ALT/SGPT) Alkaline Phosphatase 102 Total Protein 6.9 Albumin 2.8 Imaging Last Impressions Abdomen/Pelvis CT 11/04/16 0000 Signed Impressions: Service Date/Time: October 17:27 - CONCLUSION: Interval development of tiny bilateral pleural effusions and slight increase in ascites since the prior exam. Lobito Farmer MD Physical Exam HEENT: PERRL; normocephalic; atraumatic; no jaundice. CHEST: CTA CARDIAC: RRR ABDOMEN: Soft, nondistended,diffuse TTP; no hepatosplenomegaly; bowel sounds are present in all four quadrants. EXTREMITIES: No clubbing, cyanosis, or edema. SKIN: Normal; no rash; no jaundice. [employer]: No focal deficits; alert and oriented times three. (Lorena Gibson) Assessment and Plan Plan ASSESSMENT - Severe anemia, heme negative without hematemesis Probably recent blood loss in stool EGD on 11/04 shows no upper gi source of bleeding, colonoscopy shows no abnormality - gallstone - US 10-18-16 shows cirrhotic liver, gallstone. d/w GS, no surgery indicated at this time. - Cirrhosis with history of esophageal varices - Alcoholism, now sober 70days - Low blood pressure. PLAN -protonix 40mg PO daily - Pt should be ready for discharge if otherwise stable. - Followup in office in 2-3 weeks. - Iron supplementation. This pt seen by myself and Dr Newell and this note is written on his behalf ( Lorena Gibson) Physician Comments patient was seen and examined, agree with above note and plan, if anemia continue, she will need capsule endoscopy as outpatient, we will sign off and pT , will FU as outpatient with GI 1 wk after discharge. (Rosalino Newell MD) Lorena Gibson Nov 06, 2016 16:06 Rosalino Newell MD Nov 06, 2016 17:42
--- NOTE | 2016-11-06 17:21 | MB ---
cc: AARON LEE M.D. DATE OF CONSULTATION 11/06/2016 REASON FOR CONSULTATION Gallstone. HISTORY OF PRESENT ILLNESS The patient is a 46-year-old female with multiple episodes of GI hemorrhage with multiple admissions over the past year and a half. The patient has history of cirrhosis with variceal hemorrhage. The patient had some weakness and some dark tarry stools for the last 4-5 days prior to her admission on 11/03. Initial hemoglobin was 4. The patient was given transfusions and underwent endoscopy yesterday which failed to demonstrate any evidence of active bleeding. PAST SURGICAL HISTORY Include banding of esophageal varices, paracentesis, bone grafting and traumatic injury to the left orbit. PAST MEDICAL HISTORY Quite extensive and includes anemia, arthritis, asthma, COPD, tobacco use, bipolar disorder, anxiety disorder, heart rhythm disturbances, cirrhosis, diverticulitis, esophageal varices, GE reflux disease, headaches, hepatitis A and C, pancreatitis, seizure disorder, thyroid disease and gastric ulcers. MEDICATIONS Includes: 1. Metoprolol. 2. Keppra. 3. Buspirone. 4. Spirolactone. 5. Tizanidine. 6. Levothyroxine. 7. Lasix. 8. Lactulose. PHYSICAL EXAMINATION GENERAL: Reveals an obese female who is sleeping but was arousable. VITAL SIGNS: BP 111/59, pulse 61, respirations 20, temperature 97.5, 93% saturation on room air. HEENT: Sclerae anicteric. Pupils are reactive. CHEST: Clear to auscultation. CARDIAC: Exam reveals regular rate and rhythm. ABDOMEN: Abdomen is protuberant with a rectus diastases in the midline. There is some right-sided general abdominal tenderness with some guarding but no rebound. There are no peritoneal signs noted. There are no scars on the abdomen. Pulses are present. EXTREMITIES: The patient is able to move all four extremities. LABORATORY DATA Laboratory values from today demonstrate WBCs of 5.2, hemoglobin 9.7, platelet count 184,000. Chemistries demonstrate bilirubin of 0.6, AST 46, ALT 30, alkaline phosphatase 102. BUN and creatinine are normal at 7 and 0.9. IMAGING STUDIES Imaging demonstrates a grossly enlarged spleen, cirrhosis with varices involving the GE junction, unchanged. Small pleural effusions, slight ascites that was slightly increased. There are multiple stones without gallbladder wall thickening or pericholecystic fluid. There is slight prominence of the loops of small bowel. The patient does not report any abdominal pain except when you press down. ASSESSMENT Cirrhosis with accompanying changes, esophageal varices, hepatitis and multiple medical problems. Given the fact that the patient has minimal physical findings in the face of imaging that demonstrates stones but no inflammation, I would be extremely reluctant to put this individual through any surgical procedure. She is at high risk for excessive blood loss during the procedure and significant complications. She should only be considered for surgery in an emergent situation. I discussed this with the patient with whom I have noted understanding of this. We will see her as needed. MD NICK Reid/JENNIFER /4:43 PM /5:12 PM [email or web address]
[2016-11-06 20:00] VITALS: BP 101/64; PULSE 61; RESP 18; TEMP 97.6; O2SAT 92
[2016-11-07] VITALS: BP 126/81; PULSE 50; RESP 16; TEMP 98.1; O2SAT 95
[2016-11-07] MEDS: ACETAMINOPHEN/HYDROcodone 325 MG/5 MG TAB PO PRN ×3 (00:25→12:35)
[2016-11-07] MEDS: ONDANSETRON HCL 4 MG/2 ML VIAL IVP PRN ×3 (00:25→12:36)
[2016-11-07] MEDS: SODIUM CHLOR 0.9% 1000 ML INJ 1,000 ML IV SCH ×2 (01:10→07:59)
[2016-11-07 04:00] VITALS: BP 122/70; PULSE 62; RESP 18; TEMP 97.9; O2SAT 97
[2016-11-07] MEDS: levETIRAcetam 500 MG TAB PO SCH (08:00)
[2016-11-07] MEDS: LACTULOSE SYRUP 20 GM/30 ML CUP PO SCH (08:00)
[2016-11-07] MEDS: SODIUM CHLORIDE 0.9% FLUSH 10 ML FLUSH IV FLUSH SCH (08:01)
[2016-11-07] MEDS: FOLIC ACID 1 MG TAB PO SCH (08:01)
[2016-11-07] MEDS: busPIRone HCL 5 MG TAB PO SCH (08:01)
[2016-11-07 08:06] VITALS: BP 114/63; PULSE 59; RESP 16; TEMP 97.9; O2SAT 94
[2016-11-07] MEDS: PANTOPRAZOLE SODIUM 40 MG VIAL IV PUSH SCH (08:08)
--- NOTE | 2016-11-07 09:38 | HHI.PR ---
Subjective History of Present Illness patient c/o abdominal distension and pain, on pain medicine no other complaints s/p colonoscopy General surgery input noted for gall stone...not a surgical candidate high risk for surgery. Review of Systems Constitutional Constitutional: Fatigue, Weakness GI/Abdomen GI/Abdominal Exam: Abdominal Pain GI/Abdomen Remarks abdominal distension. Vitals/Results Intake & Output 11/06/16 11/06/16 11/07/16 15:00 23:00 07:00 Intake Total 602 ml 480 ml 480 ml Output Total 3 ml Balance 602 ml 480 ml 477 ml Intake Oral 600 ml 480 ml 480 ml IV Total 2 ml Output Urine Total 3 ml # Voids 4 2 # Bowel Movements 0 0 0 Vital Signs Vital Signs Date Time Temp Pulse Resp B/P Pulse Ox O2 Delivery O2 Flow Rate FiO2 11/07/16 08:06 97.9 59 16 114/63 94 11/07/16 04:00 Nasal Cannula 2.00 11/07/16 04:00 97.9 62 18 122/70 97 11/07/16 00:00 Nasal Cannula 2.00 11/07/16 00:00 98.1 50 16 126/81 95 11/06/16 20:00 Nasal Cannula 2.00 11/06/16 20:00 97.6 61 18 101/64 92 11/06/16 16:00 97.7 48 20 105/68 95 11/06/16 12:00 Room Air 11/06/16 12:00 97.5 61 20 111/59 93 CBC/BMP: 11/06/16 0515 11/06/16 0515 Physical Exam General General Appearance: No Acute Distress, Comfortable Eyes Eye Exam: Pupils Equal, Pupils Reactive, Extraocular Movement Intact Throat Throat Exam: Oral Mucosa [place] & Moist, Oral Pharynx Normal Neck Neck Exam: Neck Supple, Trachea Midline Pulmonary Resp Exam: Clear Bilaterally, Breath Sounds Equal Cardiology CV Exam: Regular, Normal Sinus Rhythm Gastrointestinal/Abdomen GI Remarks Massive Ascities. Musculoskeletal MS Exam: Normal Tone Integumentary Skin Exam: Clear, Warm, Dry, Intact Neurologic Neuro Exam: Alert, Awake, Oriented, Speech Clear, Moving All Extremities, No Focal Deficits Psychiatric Psych Exam: Appropriate Responses VTE Prophylaxis VTE Prophylaxis Device: SCDs PUD Prophylasis PUD Prophylaxis: Protonix Assessment/Plan Assessment/Plan ASSESSMENT 1. Severe anemia. 2. Probable gastrointestinal bleed. 3. Liver cirrhosis. 4. History of polysubstance abuse. 5. History of esophageal varices. 6. History of bipolar disorder. 7. Hypocalcemia. 8. Elevated AST level. 9. History of possible gallbladder stone./ consult general surgery for gall stone. on a clear liquid diet with ice chips. s/p two units of packed red blood cells transfusion . She will receive IV Protonix every 24 hours. Sandostatin injection 250 mics q.8h. Bowel regimen will be monitored. GI following for their opinion. The patient s/p colonoscopy within normal limits. The patient will have as needed medications for pain, nausea. She is alert and oriented and cooperative. She will have hemoglobin and hematocrit q.6h. She is currently stable. She is currently in stable condition with a serious anemia that is currently being corrected. To my knowledge she is full code, full aggressive care and we will follow. General surgery input noted for gall stone...not a surgical candidate high risk for surgery. ok to dc home today f/u with PCP / GI 1 week. Discussed Condition with: Patient Dhaval Conley MD Nov 07, 2016 09:38
[2016-11-07 09:58] LABS: AUTOMATED NEUTROPHIL # 3.6 TH/MM3 (1.8-7.7); BASOPHIL % 0.8 % (0.0-2.0); EOSINOPHIL # 0.1 TH/MM3 (0-0.4); EOSINOPHIL % 2.3 % (0.0-4.0); HEMATOCRIT 29.8 % (35.0-46.0); HEMO FLAGS DIFF FINAL; LYMPH % 17.1 % (9.0-44.0); LYMPHOCYTE # 0.9 TH/MM3 (1.0-4.8); MEAN CELL VOLUME 86.3 FL (80.0-100.0); MEAN CORPUSCULAR HEMOGLOBIN 28.7 PG (27.0-34.0); MEAN CORPUSCULAR HGB CONC 33.2 % (32.0-36.0); MONO % 12.3 % (0.0-8.0); NEUT % 67.5 % (16.0-70.0); PLATELET COUNT 160 TH/MM3 (150-450); RED BLOOD COUNT 3.45 MIL/MM3 (4.00-5.30); RED CELL DISTRIBUTION WIDTH 17.7 % (11.6-17.2); WHITE BLOOD COUNT 5.3 TH/MM3 (4.0-11.0)
[2016-11-07 10:26] LABS: ANION GAP 8 MEQ/L (5-15); AST (GOT) 44 U/L (15-37); BICARBONATE 23.1 MEQ/L (21.0-32.0); BLOOD UREA NITROGEN 5 MG/DL (7-18); CHLORIDE 105 MEQ/L (98-107); GLOMERULAR FILTRATION RATE 72 ML/MIN (>89); POTASSIUM 4.1 MEQ/L (3.5-5.1); SODIUM (NA) 136 MEQ/L (136-145)
[2016-11-07 10:28] LABS: ALT (GPT) 34 U/L (10-53)
[2016-11-07 10:30] LABS: ALKALINE PHOSPHATASE 125 U/L (45-117); TOTAL BILIRUBIN ADULT 0.7 MG/DL (0.2-1.0)
[2016-11-07] MEDS ORDERED: METOPROLOL TARTRATE 25 MG TAB PO SCH (12:00)
[2016-11-07] MEDS ORDERED: SPIRONOLACTONE 50 MG TAB PO SCH (12:00)
[2016-11-07 12:06] VITALS: BP 127/64; PULSE 65; RESP 16; TEMP 97.8; O2SAT 98
[2016-11-07] MEDS ORDERED: FUROSEMIDE 40 MG TAB PO SCH (13:00)
[2016-11-07] MEDS ORDERED: LEVOTHYROXINE SODIUM 100 MCG TAB PO SCH (13:00)
== END 2016-11-07 15:30 | disposition home or self-care (01) | DRG 378 ==
LOC: NEPE 12:47 → NEDA 16:15 → N04B 21:59
PROVIDERS: ADMIT Family Medicine; ATTEND Family Medicine
PROC: 30233N1 Transfusion of Nonautologous Red Blood Cells into Peripheral Vein, Percutaneous Approach (ICD-10-PCS; principal; 2016-11-03)
PROC: 0DB78ZX Excision of Stomach, Pylorus, Via Natural or Artificial Opening Endoscopic, Diagnostic (ICD-10-PCS; 2016-11-04)
PROC: 0DJD8ZZ Inspection of Lower Intestinal Tract, Via Natural or Artificial Opening Endoscopic (ICD-10-PCS; 2016-11-05)
DX: K92.2 Gastrointestinal hemorrhage, unspecified (principal); B15.9 Hepatitis A without hepatic coma; I95.9 Hypotension, unspecified; R56.9 Unspecified convulsions; K70.31 Alcoholic cirrhosis of liver with ascites; D64.9 Anemia, unspecified; K21.9 Gastro-esophageal reflux disease without esophagitis; J45.909 Unspecified asthma, uncomplicated; F31.9 Bipolar disorder, unspecified; F41.9 Anxiety disorder, unspecified; J44.9 Chronic obstructive pulmonary disease, unspecified; I10 Essential (primary) hypertension; F17.210 Nicotine dependence, cigarettes, uncomplicated; E83.51 Hypocalcemia; F10.21 Alcohol dependence, in remission; B18.2 Chronic viral hepatitis C; M17.11 Unilateral primary osteoarthritis, right knee; K80.20 Calculus of gallbladder without cholecystitis without obstruction; I85.10 Secondary esophageal varices without bleeding; K29.70 Gastritis, unspecified, without bleeding; Z86.14 Personal history of Methicillin resistant Staphylococcus aureus infection
CPT/HCPCS: 36430; 74177; 80053; 80177; 82140; 84484; 85014; 85018; 85025; 85610; 85730; 86850; 86900; 86901; 86902; 86920; 86922; 88305; 88312; 93005; C9113; J2354; J2370; J2405; J3010; J7030; J7050; P9016; Q9963; Q9967

== ENCOUNTER 2016-11-18 17:23 | Inpatient (IN) | payer OTHER ==
[2016-11-18] VITALS (7 sets, daily range): BP systolic 65–111; BP diastolic 38–63; PULSE 79–114; RESP 20; TEMP 99.3–99.4; O2SAT 94–99
[~2016-11-18] VITALS: Ht 154.9 cm; Wt 71.3 kg
--- NOTE | 2016-11-18 17:45 | PD ---
Physical Exam Time Seen by Provider: 17:44 Narrative 46 y/o female presents with abdominal pain for 2 weeks. Vomiting, hematemesis 2AM. Vital signs reviewed. Seen at triage desk. Awaiting bed placement. Data Data Last Documented VS Vital Signs Date Time Temp Pulse Resp B/P Pulse Ox O2 Delivery O2 Flow Rate FiO2 11/18/16 17:24 99.3 112 20 93/63 99 Room Air [facility] Medical Record Reviewed: Yes Supervised Visit with BESS: Umberto Wong Nov 18, 2016 17:45
[2016-11-18] MEDS ORDERED: SODIUM CHLORIDE 0.9% FLUSH 10 ML FLUSH IV FLUSH PRN (19:15)
[2016-11-18] MEDS ORDERED: ONDANSETRON HCL 4 MG/2 ML VIAL IVP ONE (19:15)
[2016-11-18] MEDS ORDERED: MORPHINE SULFATE 4 MG/ML INJ IV PUSH ONE (19:15)
--- NOTE | 2016-11-18 19:24 | PD ---
HPI . Outer quadrant pain Chief Complaint: GI Complaint Time Seen by Provider: 18:59 Travel History International Travel<30 days: No Contact w/Intl Traveler<30days: No Traveled to known affect area: No History of Present Illness HPI The patient presents with the chief complaint to me of chronic right upper quadrant pain. She states that she has known gallstone but that they cannot operate upon her because she is a poor risk. She rates her pain currently as 8/ 10. She states that she presents to the emergency department tonight because she started vomiting blood. Onset was about 3 AM. She is unable to tell me how many times she vomited blood. This stopped about 8 AM. She denies any bloody stool. She denies fever. She is otherwise not nauseous. No known modifying factors. PFSH Past Medical History Hx Anticoagulant Therapy: Yes (ASA) Anemia: Yes Arthritis: Yes Asthma: Yes Autoimmune Disease: No Blood Disorders: No Bipolar Disorder: Yes Anxiety: Yes Depression: No Heart Rhythm Problems: Yes (QUESTIONABLE MURMUR) Cancer: No High Cholesterol: No Chemotherapy: No Chest Pain: No Congestive Heart Failure: No Cirrhosis: Yes COPD: Yes Cerebrovascular Accident: No Diabetes: No (BORDERLINE) Diminished Hearing: No Diverticulitis: Yes Endocrine: Yes Gastrointestinal Disorders: Yes ("PROBLEMS WITH LIVER", ESOPHAGEAL VARICIES) GERD: Yes Genitourinary: No Headaches: Yes Hepatitis: Yes (A&C) Hiatal Hernia: Yes Heparin Induced Thrombocytopen: No Hypertension: Yes Immune Disorder: No Implanted Vascular Access Dvce: No Kidney Stones: No Musculoskeletal: Yes Neurologic: No Psychiatric: Yes (BIPOLAR) Reproductive: No Respiratory: Yes (COPD) Integumentary: Yes Immunizations Current: No Migraines: No Pancreatitis: Yes Radiation Therapy: No Renal Failure: No Seizures: Yes Sickle Cell Disease: No Sleep Apnea: No Thyroid Disease: Yes Ulcer: Yes Menopausal: Yes : 4 Para: 3 : 1 Tubal Ligation: Yes Past Surgical History Abdominal Surgery: Yes (ESOPHAGEAL VARICES WITH BANDING; paracentesis) AICD: No Arteriovenous Shunt: No Cardiac Surgery: No Ear Surgery: No Endocrine Surgery: No Eye Surgery: No Genitourinary Surgery: No Gynecologic Surgery: Yes (CERVICAL FREEZE) Insulin Pump: No Joint Replacement: No Neurologic Surgery: No Oral Surgery: Yes (ALL TEETH REMOVED) Pacemaker: No Thoracic Surgery: No Other Surgery: Yes (ANTHROSCOPIC RIGHT ANKLE,FRACTURE RIGHT LEG,BONE GRAPH.) Social History 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) Tobacco Use: Yes (1 ppd) Substance Use: Yes (COCAINE) Allergies-Medications (Allergen,Severity, Reaction): Coded Allergies: *MDRO Multi-Drug Resistant Organism (Verified Adverse Reaction, Unknown, ) 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) Reported Meds & Prescriptions Reported Meds & Active Scripts Active Metoprolol Tartrate 25 Mg Tab 25 Mg PO BID Reported Keppra (Levetiracetam) 500 Mg Tab 500 Mg PO BID Buspirone (Buspirone HCl) 15 Mg Tab 15 Mg PO BID Folic Acid 800 Mcg Cap 800 Mcg PO DAILY Spironolactone 50 Mg Tab 50 Mg PO DAILY Tizanidine (Tizanidine HCl) 4 Mg Tab 4 Mg PO TID Levothyroxine (Levothyroxine Sodium) Unknown Strength Tab 1 Tab PO DAILY Zofran (Ondansetron HCl) Unknown Strength Tab 1 Tab PO Q6HR PRN Furosemide Unknown Strength Tab 40 Mg PO DAILY Lactulose Liq (Lactulose) 10 Gm/15 Ml Soln 15 Ml PO BID Review of Systems Except as stated in HPI: all other systems reviewed are Neg General / Constitutional: No: Fever, Chills Eyes: No: Blurred Vision Cardiovascular: No: Chest Pain or Discomfort Respiratory: No: Shortness of Breath Gastrointestinal: Positive: Vomiting, Abdominal Pain, Hematemesis, No: Diarrhea, Hematochezia Physical Exam Narrative GENERAL: Patient is awake and alert and does not appear to be in any acute distress. SKIN: Warm and dry. She is pink. HEAD: Atraumatic. Normocephalic. EYES: Pupils equal and round. Sclera are anicteric. ENT: No nasal bleeding or discharge. Mucous membranes pink and moist. NECK: Trachea midline. Neck is supple. CARDIOVASCULAR: Regular rate and rhythm. Heart sounds normal. RESPIRATORY: No accessory muscle use. Lungs are clear with full air movement throughout. GASTROINTESTINAL: The abdomen was examined while she was being distracted. Abdomen soft, non-tender, nondistended. Bowel sounds present. RECTAL: No external hemorrhoid. No rectal masses. Brown stool in the rectal vault which is soft. MUSCULOSKELETAL: No obvious deformities. No edema. NEUROLOGICAL: Awake and alert. No obvious cranial nerve deficits. Motor grossly within normal limits. Normal speech. PSYCHIATRIC: Appropriate mood and affect; insight and judgment normal. Data Data Last Documented VS Vital Signs Date Time Temp Pulse Resp B/P Pulse Ox O2 Delivery O2 Flow Rate FiO2 11/18/16 17:24 99.3 112 20 93/63 99 Room Air Orders Complete Blood Count With Diff (11/18/16 19:09) Comprehensive Metabolic Panel (11/18/16 19:09) Lipase (11/18/16 19:09) Iv Access Insert/Monitor (11/18/16 19:09) Morphine Inj (Morphine Inj) (11/18/16 19:15) Ondansetron Inj (Zofran Inj) (11/18/16 19:15) Sodium Chloride 0.9% Flush (Ns Flush) (11/18/16 19:15) Sodium Chlor 0.9% 1000 Ml Inj (Ns 1000 M (11/18/16 19:30) Sodium Chlor 0.9% 1000 Ml Inj (Ns 1000 M (11/18/16 19:30) Sodium Chlor 0.9% 1000 Ml Inj (Ns 1000 M (11/18/16 19:30) Red Blood Cells (Rbc) (11/18/16 20:40) Blood Product Administration .UPON TRANSFUSION (11/18/16 20:40) Type And Screen (11/18/16 20:40) Sodium Chlor 0.9% 1000 Ml Inj (Ns 1000 M (11/18/16 21:30) Sodium Chlor 0.9% 1000 Ml Inj (Ns 1000 M (11/18/16 21:30) ^ Infusion (11/18/16 ) Norepinephrine-Dextrose Drip (Levophed-D (11/18/16 21:30) Terbutaline Inj (Brethine Inj) (11/18/16 21:30) Lactic Acid Sepsis Protocol (11/18/16 21:19) Blood Culture (11/18/16 21:19) Blood Product Administration .UPON TRANSFUSION (11/18/16 21:23) Diphenhydramine (Benadryl) (11/18/16 21:30) Acetaminophen (Tylenol) (11/18/16 21:30) Admit Order (Ed Use Only) (11/18/16 21:29) Labs Laboratory Tests Test 7/27/17 19:15 White Blood Count 8.7 TH/MM3 Red Blood Count 3.04 MIL/MM3 Hemoglobin 8.6 GM/DL Hematocrit 25.4 % Mean Corpuscular Volume 83.4 FL Mean Corpuscular Hemoglobin 28.2 PG Mean Corpuscular Hemoglobin 33.8 % Concent Red Cell Distribution Width 18.1 % Platelet Count 139 TH/MM3 Mean Platelet Volume 10.3 FL Neutrophils (%) (Auto) 60.3 % Lymphocytes (%) (Auto) 24.2 % Monocytes (%) (Auto) 12.6 % Eosinophils (%) (Auto) 2.1 % Basophils (%) (Auto) 0.8 % Neutrophils # (Auto) 5.3 TH/MM3 Lymphocytes # (Auto) 2.1 TH/MM3 Monocytes # (Auto) 1.1 TH/MM3 Eosinophils # (Auto) 0.2 TH/MM3 Basophils # (Auto) 0.1 TH/MM3 CBC Comment DIFF FINAL Differential Comment Sodium Level 133 MEQ/L Potassium Level 3.6 MEQ/L Chloride Level 97 MEQ/L Carbon Dioxide Level 26.5 MEQ/L Anion Gap 10 MEQ/L Blood Urea Nitrogen 42 MG/DL Creatinine 1.50 MG/DL Estimat Glomerular Filtration 37 ML/MIN Rate Random Glucose 127 MG/DL Calcium Level 8.2 MG/DL Total Bilirubin 0.8 MG/DL Aspartate Amino Transf 46 U/L (AST/SGOT) Alanine Aminotransferase 35 U/L (ALT/SGPT) Alkaline Phosphatase 99 U/L Total Protein 7.0 GM/DL Albumin 2.7 GM/DL Lipase 97 U/L MDM Medical Decision Making Medical Screen Exam Complete: Yes Emergency Medical Condition: Yes Medical Record Reviewed: Yes (patient has a history of cholelithiasis, cirrhosis of the liver, previous GI bleed with anemia,, esophageal varices polysubstance abuse and bipolar disorder. She had an H&H of 4.0/12.5 on 11/03. She was transfused with 5 units of blood. Her most recent H&H on 11/07 was 9.9 and 29.8. Her baseline LFTs are only modestly elevated.) Differential Diagnosis Final differential diagnosis of upper GI bleed includes but is not limited to Chichi-Connors tear, gastritis, esophageal varices, peptic ulcer Narrative Course Patient presents with the chief complaint of right upper quadrant pain but the real complaint of upper GI bleed. Vital Signs Date Time Temp Pulse Resp B/P Pulse Ox O2 Delivery O2 Flow Rate FiO2 11/18/16 17:24 99.3 112 20 93/63 99 Room Air Patient's systolic blood pressure dropped into the 60s shortly after arrival. She has had about a liter and a half of fluid and her systolic blood pressure is now 83. CBC Diagram 11/18/16 19:15 I have ordered 2 units of blood to be typed and crossed and held. 20:50 She has now had 2100 mL of IV fluid. Her systolic blood pressure is 90. She has not yet have the urge to urinate. BMP Diagram 11/18/16 19:15 The patient's most recent BUN/creatinine on 11/07 was 5/0.84. 9:25 PM Systolic blood pressures by down to 80 following 3 L of fluid. I have ordered Levophed. I will also go ahead and order blood for transfusion. The patient will be admitted to the intensive care unit. Critical Care Narrative Aggregate critical care time was 60 minutes. Time to perform other separately billable procedures was not included in the critical care time. My time did not include minutes spent treating any other patients simultaneously or on activities that did not directly contribute to the patient's treatment. The services I provided to this patient were to treat and/or prevent clinically significant deterioration due to hemorrhagic shock I provided critical care services requiring my management, as noted below: Chart data review, documentation time, medication orders and management, vital sign assessments/reviewing monitor data, ordering and reviewing lab tests, ordering and interpreting/reviewing x-rays and diagnostic studies, care of the patient and discussion of the patient with the admitting physicians HemaPrompt Point of Care Internal Pos. & Neg. Controls: Passed Fecal Specimen Occult Blood: Negative Physician Communication Physician Communication Discussed with Dr. Yanes who will admit the patient to the intensive care unit. Diagnosis Primary Impression: Hypovolemic shock Additional Impressions: GI bleed Qualified Code: K92.2 - Gastrointestinal hemorrhage, unspecified gastrointestinal hemorrhage type Anemia Qualified Code: D62 - Acute posthemorrhagic anemia Acute renal failure Qualified Code: N17.9 - Acute renal failure, unspecified acute renal failure type Admitting Information Admitting Physician Requests: Admit Condition: Carmencita Maldonado MD Nov 18, 2016 19:24
[2016-11-18] MEDS: SODIUM CHLOR 0.9% 1000 ML INJ 1,000 ML IV SCH ×2 (19:29→21:58)
[2016-11-18] MEDS ORDERED: SODIUM CHLOR 0.9% 1000 ML INJ 1,000 ML IV ONE ×4 (19:30→21:30)
[2016-11-18 19:53] LABS: AUTOMATED NEUTROPHIL # 5.3 TH/MM3 (1.8-7.7); BASOPHIL # 0.1 TH/MM3 (0-0.2); BASOPHIL % 0.8 % (0.0-2.0); EOSINOPHIL # 0.2 TH/MM3 (0-0.4); EOSINOPHIL % 2.1 % (0.0-4.0); HEMATOCRIT 25.4 % (35.0-46.0); HEMO FLAGS DIFF FINAL; LYMPH % 24.2 % (9.0-44.0); LYMPHOCYTE # 2.1 TH/MM3 (1.0-4.8); MEAN CELL VOLUME 83.4 FL (80.0-100.0); MEAN CORPUSCULAR HEMOGLOBIN 28.2 PG (27.0-34.0); MEAN CORPUSCULAR HGB CONC 33.8 % (32.0-36.0); MONO % 12.6 % (0.0-8.0); NEUT % 60.3 % (16.0-70.0); PLATELET COUNT 139 TH/MM3 (150-450); RED BLOOD COUNT 3.04 MIL/MM3 (4.00-5.30); RED CELL DISTRIBUTION WIDTH 18.1 % (11.6-17.2); WHITE BLOOD COUNT 8.7 TH/MM3 (4.0-11.0)
[2016-11-18 21:06] LABS: ANION GAP 10 MEQ/L (5-15); BICARBONATE 26.5 MEQ/L (21.0-32.0); BLOOD UREA NITROGEN 42 MG/DL (7-18); CHLORIDE 97 MEQ/L (98-107); POTASSIUM 3.6 MEQ/L (3.5-5.1); SODIUM (NA) 133 MEQ/L (136-145)
[2016-11-18 21:07] LABS: AST (GOT) 46 U/L (15-37); GLOMERULAR FILTRATION RATE 37 ML/MIN (>89)
[2016-11-18 21:13] LABS: ALKALINE PHOSPHATASE 99 U/L (45-117); ALT (GPT) 35 U/L (10-53); TOTAL BILIRUBIN ADULT 0.8 MG/DL (0.2-1.0)
[2016-11-18] MEDS ORDERED: NOREPINEPHRINE-DEXTROSE DRIP 250 ML IV SCH (21:30)
[2016-11-18] MEDS ORDERED: diphenhydrAMINE HCL 25 MG CAP PO PRN (21:30)
[2016-11-18] MEDS ORDERED: TERBUTALINE INJ 1 MG/ML AMP SQ PRN (21:30)
[2016-11-18] MEDS ORDERED: ACETAMINOPHEN 325 MG TAB PO ONE (21:30)
[2016-11-18] MEDS ORDERED: PANTOPRAZOLE INJ 80 MG in SODIUM CHLORIDE 0.9% INJ 100 ML IV SCH (22:15)
[2016-11-18] MEDS ORDERED: PANTOPRAZOLE INJ 80 MG in SODIUM CHLORIDE 0.9% INJ 35 ML IV ONE ×2 (22:15→23:45)
[2016-11-18] MEDS ORDERED: OCTREOTIDE INJ 100 MCG/ML VIAL IV PUSH ONE (22:15)
[2016-11-18] MEDS ORDERED: OCTREOTIDE INJ 500 MCG in SODIUM CHLORID 0.9% 500 ML INJ 500 ML IV SCH (22:15)
[2016-11-18] MEDS ORDERED: SODIUM CHLORIDE 0.9% FLUSH 10 ML FLUSH PRN (22:45)
[2016-11-18] MEDS ORDERED: LACTULOSE SYRUP 20 GM/30 ML CUP PO PRN (22:45)
[2016-11-18] MEDS ORDERED: RESP: ALBUTEROL 2.5 MG/IPRATROPIUM 0.5 MG NEB (PRN) INH (22:45)
[2016-11-18] MEDS ORDERED: MAGNESIUM HYDROXIDE SUSP 30 ML CUP PO PRN (22:45)
[2016-11-18] MEDS ORDERED: MISCELLANEOUS NURSING INFORMATION XX SCH (22:45)
[2016-11-18] MEDS ORDERED: OCTREOTIDE INJ 50 MCG/ML AMP IV ONE (22:45)
[2016-11-18] MEDS ORDERED: CHLORHEXIDINE GLUCONATE 2 % 1 PACK (2 CLOTHS) TOP PRN (22:45)
[2016-11-18] MEDS ORDERED: ACETAMINOPHEN 325 MG TAB PO PRN (22:45)
[2016-11-18] MEDS ORDERED: BISACODYL 10 MG SUPP RECTAL PRN (22:45)
[2016-11-18] MEDS ORDERED: SENNOSIDES 8.6 MG TAB PO PRN (22:45)
--- NOTE | 2016-11-18 22:47 | HHI.HP ---
[facility] Service Critical Care Medicine Primary Care Physician Brandy Mendieta MD Admission Diagnosis upper GI bleed, hypotension Diagnosis: Travel History International Travel<30 Days: No Contact w/Intl Traveler <30 Da: No Traveled to Known Affected Are: No History of Present Illness The patient presents with a complaint of chronic right upper quadrant pain. She states that she has known gallstone but that they cannot operate upon her because she is a poor risk. She states that she presents to the emergency department tonight because she started vomiting blood. Onset was about 3 AM. It is unclear how many times she vomited blood. This stopped about 8 AM. She denies any bloody or melanotic stool. She denies fever. She is otherwise not nauseous. No known modifying factors. Review of Systems Constitutional: DENIES: Diaphoretic episodes, Fatigue, Fever, Weight gain, Weight loss, Chills, Dizziness, Change in appetite, Night Sweats Endocrine: DENIES: Abnorml menstrual pattern, Heat/cold intolerance, Polydipsia , Polyuria, Polyphagia Eyes: DENIES: Blurred vision, Diplopia, Eye inflammation, Eye pain, Vision loss , Photosensitivity, Double Vision Ears, nose, mouth, throat: DENIES: Tinnitus, Hearing loss, Vertigo, Nasal discharge, Oral lesions, Throat pain, Hoarseness, Ear Pain, Running Nose, Epistaxis, Sinus Pain, Toothache, Odynophagia Respiratory: DENIES: Apneas, Cough, Snoring, Wheezing, Hemoptysis, Sputum production, Shortness of breath Cardiovascular: DENIES: Chest pain, Palpitations, Syncope, Dyspnea on Exertion , PND, Lower Extremity Edema, Orthopnea, Claudication Gastrointestinal: COMPLAINS OF: Abdominal pain, Nausea, Vomiting, DENIES: Black stools, Bloody stools, Constipation, Diarrhea, Difficulty Swallowing, Anorexia Genitourinary: DENIES: Abnormal vaginal bleeding, Dysmenorrhea, Dyspareunia, Sexual dysfunction, Urinary frequency, Urinary incontinence, Urgency, Hematuria , Dysuria, Nocturia, Vaginal discharge Musculoskeletal: DENIES: Joint pain, Muscle aches, Stiffness, Joint Swelling, Back pain, Neck pain Integumentary: DENIES: Abnormal pigmentation, Pruritus, Rash, Nail changes, Breast masses, Breast skin changes, Nipple discharge Hematologic/lymphatic: DENIES: Bruising, Lymphadenopathy Immunologic/allergic: DENIES: Eczema, Urticaria Neurologic: DENIES: Abnormal gait, Headache, Localized weakness, Paresthesias, Seizures, Speech Problems, Tremor, Poor Balance Psychiatric: DENIES: Anxiety, Confusion, Mood changes, Depression, Hallucinations, Agitation, Suicidal Ideation, Homicidal Ideation, Delusions Past Family Social History Allergies: Coded Allergies: *MDRO Multi-Drug Resistant Organism (Verified Adverse Reaction, Unknown, ) 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) Past Medical History Esophageal varices with banding Anemia Arthritis Asthma Chronic obstructive pulmonary disease Tobacco abuse Bipolar disorder Anxiety disorder Liver cirrhosis Borderline diabetes Diverticulitis Gastroesophageal reflux disease Headaches Hepatitis A and C Pancreatitis Seizure disorder Gastric ulcer disease Past Surgical History Esophageal varices with banding Paracentesis Cervical curettage All teeth removal Arthritis right knee surgery Fracture of the right leg Bone grafting Reported Medications Reported Meds & Active Scripts Active Metoprolol Tartrate 25 Mg Tab 25 Mg PO BID Reported Keppra (Levetiracetam) 500 Mg Tab 500 Mg PO BID Buspirone (Buspirone HCl) 15 Mg Tab 15 Mg PO BID Folic Acid 800 Mcg Cap 800 Mcg PO DAILY Spironolactone 50 Mg Tab 50 Mg PO DAILY Tizanidine (Tizanidine HCl) 4 Mg Tab 4 Mg PO TID Levothyroxine (Levothyroxine Sodium) Unknown Strength Tab 1 Tab PO DAILY Zofran (Ondansetron HCl) Unknown Strength Tab 1 Tab PO Q6HR PRN Furosemide Unknown Strength Tab 40 Mg PO DAILY Lactulose Liq (Lactulose) 10 Gm/15 Ml Soln 15 Ml PO BID Active Ordered Medications Current Medications Medications (Trade) Dose Ordered Sig/Baldo Route PRN Reason Start Time Stop Time Status Last Admin Dose Admin Norepinephrine Bitartrate (Levophed-Dextrose Drip) 250 ml @ 0 mls/hr TITRATE IV 11/18/16 21:30 11/18/16 21:57 Terbutaline Sulfate (Brethine Inj) 1 mg UNSCH PRN SQ For Extravasation 11/18/16 21:30 Buspirone HCl (Buspar) 15 mg BID PO 11/19/16 09:00 Folic Acid (Folate) 1 mg DAILY PO 11/19/16 09:00 Lactulose (Lactulose Liq) 15 ml BID PO 11/19/16 09:00 Levetriacetam (Keppra) 500 mg BID PO 11/19/16 09:00 Tizanidine HCl (Zanaflex) 4 mg TID PO 11/19/16 09:00 Non-Formulary Medication 1 tab 1 tab DAILY PO THY 11/19/16 09:00 UNV Sodium Chloride (NS 1000 ml Inj) 1,000 ml @ 84 mls/hr [id number] IV 11/18/16 22:39 11/19/16 00:30 Sodium Chloride (NS Flush) 2 ml UNSCH PRN .XX FLUSH AFTER USING IV ACCESS 11/18/16 22:45 Sodium Chloride (NS Flush) 2 ml BID .XX 11/19/16 09:00 Acetaminophen (Tylenol) 650 mg Q6H PRN PO PAIN 1-5 AND/OR FEVER >101F 11/18/16 22:45 Morphine Sulfate (Morphine Inj) 2 mg Q2H PRN IV PAIN SCALE 6 TO 10 11/18/16 22:45 Lorazepam (Ativan Inj) 1 mg Q1H PRN IV Agitation/Sedation 11/18/16 22:45 Ondansetron HCl (Zofran Inj) 4 mg Q6H PRN IV NAUSEA OR VOMITING 11/18/16 22:45 Miscellaneous Information 1 [id number] XX 11/18/16 22:45 Chlorhexidine Gluconate (Chlorhexidine 2% Cloth) 3 pack Taper DAILY@04 TOP 11/19/16 04:00 11/15/17 03:59 11/19/16 00:28 Chlorhexidine Gluconate (Chlorhexidine 2% Cloth) 3 pack UNSCH PRN TOP HYGIENIC CARE 11/18/16 22:45 Senna/Docusate Sodium (Neha-Colace) 1 tab BID PO 11/19/16 09:00 Magnesium Hydroxide (Milk Of Magnesia Liq) 30 ml Q12H PRN PO MILD - MODERATE CONSTIPATION 11/18/16 22:45 Sennosides (Senokot) 17.2 mg Q12H PRN PO MODERATE - SEVERE CONSTIPATION 11/18/16 22:45 Bisacodyl (Dulcolax Supp) 10 mg DAILY PRN RECTAL SEVERE CONSITIPATION 11/18/16 22:45 Lactulose 30 ml 30 ml DAILY PRN PO SEVERE CONSITIPATION 11/18/16 22:45 Pantoprazole Sodium 80 mg/ Sodium Chloride 100 ml @ 10 mls/hr Q10H IV 11/18/16 23:45 11/19/16 00:23 Octreotide Acetate 500 mcg/ Sodium Chloride 500.0 ml @ 25 mls/hr Q20H IV 11/18/16 00:30 11/19/16 00:28 Ceftriaxone Sodium/Sodium Chloride (Rocephin Inj/NS Inj) 100 ml @ 200 mls/hr Q24H IV 11/18/16 23:00 11/19/16 00:00 Family History No family history of early coronary artery disease or cancer Social History Positive for tobacco and alcohol abuse No history of illicit drug Physical Exam Vital Signs Vital Signs Date Time Temp Pulse Resp B/P Pulse Ox O2 Delivery O2 Flow Rate FiO2 11/18/16 17:24 99.3 112 20 93/63 99 Room Air Physical Exam GENERAL: Elderly appearing woman SKIN: Warm and dry. HEAD: Normocephalic. EYES: No scleral icterus. No injection or drainage. NECK: Supple, trachea midline. No JVD or lymphadenopathy. CARDIOVASCULAR: Regular rate and rhythm without murmurs, gallops, or rubs. RESPIRATORY: Breath sounds equal bilaterally. No accessory muscle use. GASTROINTESTINAL: Abdomen soft, non-tender, nondistended. MUSCULOSKELETAL: No cyanosis, or edema. BACK: Nontender without obvious deformity. No CVA tenderness. EXTREMITIES: No clubbing cyanosis or edema moves all 4 Laboratory Laboratory Tests Test 11/18/16 19:15 White Blood Count 8.7 Red Blood Count 3.04 Hemoglobin 8.6 Hematocrit 25.4 Mean Corpuscular Volume 83.4 Mean Corpuscular Hemoglobin 28.2 Mean Corpuscular Hemoglobin 33.8 Concent Red Cell Distribution Width 18.1 Platelet Count 139 Mean Platelet Volume 10.3 Neutrophils (%) (Auto) 60.3 Lymphocytes (%) (Auto) 24.2 Monocytes (%) (Auto) 12.6 Eosinophils (%) (Auto) 2.1 Basophils (%) (Auto) 0.8 Neutrophils # (Auto) 5.3 Lymphocytes # (Auto) 2.1 Monocytes # (Auto) 1.1 Eosinophils # (Auto) 0.2 Basophils # (Auto) 0.1 CBC Comment DIFF FINAL Differential Comment Sodium Level 133 Potassium Level 3.6 Chloride Level 97 Carbon Dioxide Level 26.5 Anion Gap 10 Blood Urea Nitrogen 42 Creatinine 1.50 Estimat Glomerular Filtration 37 Rate Random Glucose 127 Calcium Level 8.2 Total Bilirubin 0.8 Aspartate Amino Transf 46 (AST/SGOT) Alanine Aminotransferase 35 (ALT/SGPT) Alkaline Phosphatase 99 Total Protein 7.0 Albumin 2.7 Lipase 97 Result Diagram: 11/18/16191411/18/161914 Assessment and Plan Assessment and Plan Hematemesis - Octreotide drip - Pantoprazole drip - Guy tube at the bedside - GI consult - Rocephin empirically Seizure disorder - Keppra Liver cirrhosis - Lactulose - Hold Lasix and spironolactone until hemodynamically more stable COPD - No exacerbation - DuoNeb's scheduled and when necessary - No indication for steroids DVT GI prophylaxis - Teds SCDs - No pharmacological DVT prophylaxis due to GI bleeding - Protonix drip Critical Care: The total critical care time was 35 minutes. Time to perform other separately billable procedures was not included in the critical care time. Rick Yanes MD Nov 18, 2016 22:47
--- NOTE | 2016-11-18 23:26 | RADRPT ---
EXAM DATE/TIME: 11/18/2016 23:03 [facility] COMPARISON: CHEST SINGLE AP, October 18, 2016, 16:10. INDICATIONS : Central line placement MEDICAL HISTORY : Hypertension. Chronic obstructive pulmonary disease. Cirrhosis.Esophageal varicies. SURGICAL HISTORY : None. ENCOUNTER: Initial ACUITY: 1 day PAIN SCORE: 9/10 LOCATION: Bilateral chest FINDINGS: Single AP view of the chest. Left IJ central venous catheter is in place with the tip at the cavoatri al junction. Lungs are clear. Cardiomediastinal silhouette within normal limits. No evidence of pleur al effusion or pneumothorax. CONCLUSION: Left IJ central venous catheter in place with the tip in the region of the cavoatrial junction. No ev idence of pneumothorax. Grant Mackey MD on November 18, 2016 at 23:23 Board Certified Radiologist. This report was verified electronically.
[2016-11-19] VITALS (16 sets, daily range): BP systolic 96–116; BP diastolic 52–72; PULSE 66–110; RESP 14–24; TEMP 97.6–99.1; O2SAT 89–96
[2016-11-19] MEDS: cefTRIAXone INJ 1,000 MG in SODIUM CHLORIDE 0.9% INJ 100 ML IV SCH ×2
[2016-11-19] MEDS: OCTREOTIDE INJ 500 MCG in SODIUM CHLORID 0.9% 500 ML INJ 499.5 ML IV SCH ×3 (00:21→19:27)
[2016-11-19] MEDS: PANTOPRAZOLE INJ 80 MG in SODIUM CHLORIDE 0.9% INJ 100 ML IV SCH ×3 (00:23→19:26)
[2016-11-19] MEDS: CHLORHEXIDINE GLUCONATE 2 % 1 PACK (2 CLOTHS) TOP SCH (00:28)
[2016-11-19] MEDS: SODIUM CHLOR 0.9% 1000 ML INJ 1,000 ML IV SCH ×3 (00:30→22:04)
--- NOTE | 2016-11-19 00:35 | PD.PROCEDR ---
Procedure Note Procedure Centerline placement A time-out was completed verifying correct patient, procedure, site, positioning , and special equipment if applicable. The patient was placed in a dependent position appropriate for central line placement based on the vein to be cannulated. The patients left neck was prepped and draped in sterile fashion. 1 % Lidocaine was used to anesthetize the surrounding skin area. A triple lumen 9 Divehi Cordis catheter was introduced into the the internal jugular vein using the Seldinger technique and under ultrasound guidance. The catheter was threaded smoothly over the guide wire and appropriate blood return was obtained. Each lumen of the catheter was evacuated of air and flushed with sterile saline. The catheter was then sutured in place to the skin and a sterile dressing applied. Perfusion to the extremity distal to the point of catheter insertion was checked and found to be adequate. Estimated Blood Loss: 1ml The patient tolerated the procedure well and there were no complications. Rick Yanes MD Nov 19, 2016 00:35
[2016-11-19] MEDS: ONDANSETRON HCL 4 MG/2 ML VIAL IV PRN (00:49)
[2016-11-19] MEDS: LORazepam 2 MG/ML VIAL IV PRN ×2 (01:52→19:48)
[2016-11-19] MEDS: ALBUMIN HUMAN 5% 12.5 GM/250 ML BOTTLE IV SCH ×4 (01:53→17:37)
[2016-11-19 04:40] LABS: AUTOMATED NEUTROPHIL # 3.1 TH/MM3 (1.8-7.7); BASOPHIL % 0.8 % (0.0-2.0); EOSINOPHIL % 0.7 % (0.0-4.0); LYMPH % 21.1 % (9.0-44.0); LYMPHOCYTE # 0.9 TH/MM3 (1.0-4.8); MEAN CORPUSCULAR HEMOGLOBIN 28.8 PG (27.0-34.0); MEAN CORPUSCULAR HGB CONC 33.1 % (32.0-36.0); MONO % 7.1 % (0.0-8.0); NEUT % 70.3 % (16.0-70.0); PLATELET COUNT 100 TH/MM3 (150-450); RED BLOOD COUNT 2.35 MIL/MM3 (4.00-5.30); RED CELL DISTRIBUTION WIDTH 17.1 % (11.6-17.2); WHITE BLOOD COUNT 4.5 TH/MM3 (4.0-11.0)
[2016-11-19 04:45] LABS: HEMATOCRIT 20.5 % (35.0-46.0); HEMO FLAGS DIFF FINAL
[2016-11-19 05:02] LABS: BICARBONATE 22.9 MEQ/L (21.0-32.0); POTASSIUM 3.9 MEQ/L (3.5-5.1)
[2016-11-19 05:04] LABS: TOTAL BILIRUBIN ADULT 1.2 MG/DL (0.2-1.0)
[2016-11-19 05:24] LABS: CALCIUM-PROTEIN CORRECTED 7.2 MG/DL (8.5-10.1)
[2016-11-19] MEDS: levETIRAcetam 500 MG TAB PO SCH ×2 (07:54→19:27)
[2016-11-19] MEDS: DOCUSATE SODIUM 50 MG/SENNA 8.6 MG TAB PO SCH ×2 (07:54→19:27)
[2016-11-19] MEDS: LACTULOSE SYRUP 20 GM/30 ML CUP PO SCH ×2 (07:54→19:27)
[2016-11-19] MEDS: FOLIC ACID 1 MG TAB PO SCH (07:54)
[2016-11-19] MEDS: SODIUM CHLORIDE 0.9% FLUSH 10 ML FLUSH SCH ×2 (07:55→19:29)
[2016-11-19] MEDS: busPIRone HCL 5 MG TAB PO SCH ×2 (08:17→19:27)
[2016-11-19] MEDS: MORPHINE SULFATE 4 MG/ML INJ IV PRN ×4 (08:24→19:50)
[2016-11-19 08:43] LABS: REVIEW FLAG FINAL
[2016-11-19] MEDS ORDERED: LEVOTHYROXINE PO SCH (09:00)
[2016-11-19] MEDS: MUPIROCIN 2% OINT 1 APPLIC/GM SYR NASAL SCH ×2 (11:00→19:47)
--- NOTE | 2016-11-19 19:05 | HHI.CCPN ---
Subjective Remarks/Hospital Course The patient presents with a complaint of chronic right upper quadrant pain. She states that she has known gallstone but that they cannot operate upon her because she is a poor risk. She states that she presents to the emergency department tonight because she started vomiting blood. Onset was about 3 AM. It is unclear how many times she vomited blood. This stopped about 8 AM. She denies any bloody or melanotic stool. She denies fever. She is otherwise not nauseous. No known modifying factors. Subjective: 11/19: The patient continues on Protonix and octreotide infusions. No hematemesis since admission to ICU. Patient requesting a diet. Hemoglobin stable Objective Vital Signs Date Time Temp Pulse Resp B/P Pulse Ox O2 Delivery O2 Flow Rate FiO2 11/19/16 18:00 71 11/19/16 16:00 98.3 17 101/63 91 11/18/16 22:00 Room Air Result Diagram: 11/19/16 0730 11/19/16 0400 Objective Remarks GENERAL: Well-developed well-nourished female looking older than stated age SKIN: Warm and dry. HEAD: Normocephalic. EYES: No scleral icterus. No injection or drainage. NECK: Supple, trachea midline. No JVD or lymphadenopathy. CARDIOVASCULAR: Regular rate and rhythm without murmurs, gallops, or rubs. RESPIRATORY: Breath sounds equal bilaterally. No accessory muscle use. GASTROINTESTINAL: Abdomen soft, non-tender, nondistended. MUSCULOSKELETAL: No cyanosis, or edema. EXTREMITIES: No clubbing cyanosis or edema moves all 4 Urinary Catheter: No A/P Assessment and Plan Hematemesis - Octreotide drip - Pantoprazole drip - Guy tube at the bedside - GI consult - Rocephin empirically -Monitor H&H Seizure disorder - Keppra Liver cirrhosis - Lactulose - Hold Lasix and spironolactone until hemodynamically more stable COPD - No exacerbation - DuoNeb's scheduled and when necessary - No indication for steroids DVT GI prophylaxis - Teds SCDs - No pharmacological DVT prophylaxis due to GI bleeding - Protonix drip Critical Care: Level 3 Physician Jolynn Glasgow MD Nov 19, 2016 19:05
[2016-11-19 22:34] LABS: REVIEW FLAG FINAL
[2016-11-19 22:35] LABS: HEMATOCRIT 19.7 % (35.0-46.0)
[2016-11-20] VITALS (15 sets, daily range): BP systolic 91–135; BP diastolic 49–76; PULSE 56–70; RESP 16–23; TEMP 97.8–99; O2SAT 89–96
[2016-11-20] MEDS: CHLORHEXIDINE GLUCONATE 2 % 1 PACK (2 CLOTHS) TOP SCH (04:00)
[2016-11-20] MEDS: MORPHINE SULFATE 4 MG/ML INJ IV PRN ×3 (05:24→22:57)
[2016-11-20] MEDS: PANTOPRAZOLE INJ 80 MG in SODIUM CHLORIDE 0.9% INJ 100 ML IV SCH ×2 (05:28→15:13)
[2016-11-20 10:02] LABS: HEMATOCRIT 28.3 % (35.0-46.0); MEAN CELL VOLUME 86.1 FL (80.0-100.0); MEAN CORPUSCULAR HEMOGLOBIN 29.5 PG (27.0-34.0); MEAN CORPUSCULAR HGB CONC 34.2 % (32.0-36.0); PLATELET COUNT 92 TH/MM3 (150-450); RED BLOOD COUNT 3.28 MIL/MM3 (4.00-5.30); RED CELL DISTRIBUTION WIDTH 16.2 % (11.6-17.2); WHITE BLOOD COUNT 3.2 TH/MM3 (4.0-11.0)
[2016-11-20 10:11] LABS: REVIEW FLAG FINAL
[2016-11-20 10:29] LABS: BICARBONATE 23.4 MEQ/L (21.0-32.0); MAGNESIUM 1.4 MG/DL (1.5-2.5)
[2016-11-20] MEDS: DOCUSATE SODIUM 50 MG/SENNA 8.6 MG TAB PO SCH ×2 (10:51→21:41)
[2016-11-20] MEDS: busPIRone HCL 5 MG TAB PO SCH ×2 (10:51→21:41)
[2016-11-20] MEDS: levETIRAcetam 500 MG TAB PO SCH ×2 (10:52→21:42)
[2016-11-20] MEDS: MUPIROCIN 2% OINT 1 APPLIC/GM SYR NASAL SCH ×2 (10:52→21:41)
[2016-11-20] MEDS: FOLIC ACID 1 MG TAB PO SCH (10:52)
[2016-11-20] MEDS: LACTULOSE SYRUP 20 GM/30 ML CUP PO SCH ×2 (10:54→21:41)
[2016-11-20] MEDS: SODIUM CHLORIDE 0.9% FLUSH 10 ML FLUSH SCH ×2 (10:55→21:41)
--- NOTE | 2016-11-20 12:41 | PD.CONS ---
HPI History of Present Illness This is a 46 year old female with a history of liver cirrhosis secondary to chronic hepatitis C and hx of alcohol abuse and esophageal varices, frequent hospital visits who came to the ER for evaluation of hematemesis and abdominal pain. The patient reports that she began having nausea and vomiting consisting of red blood started on the 11/18 at 3 am and had multiple episodes, last episode being last night. no hematemesis since yesterday. hgb yesterday 6.8, today is 9.7 s/p 2 units of blood. States she has been sober for 90 days, but had a drink the day prior to admission. She had a recent hospitalization and under went EGD/colonoscopy with dr. Chavez EGD on (11/04/16) ---> minimal varices present grade 0-1, mild gastritis, normal duodenum, BX. benign. Colonoscopy on (11/05/16) was suboptimal with copious washing and suctioning a god examination was obtained, no potentially bleeding sites seen, normal colonoscopy through out. CT on (11/04/16) ---> interval development of tiny bilateral pleural effusion and slight increase in the ascites since the prior exam. During last admission, was evaluated by GS for gallstones, but was deemed not candidate for surgery. She denies melena or hematochezia (Barbara Godwin ) PFSH Past Medical History Esophageal varices Liver cirrhosis secondary to chronic hepatitis c and ongoing ETOH abuse Seizure disorder Bipolar disorder Hypothyroidism Polysubstance abuse Pancreatitis Past Surgical History EGD with band ligation Colonoscopy Cryosurgery of cervix All teeth removal (Barbara Godwin) Coded Allergies: *MDRO Multi-Drug Resistant Organism (Verified Adverse Reaction, Unknown, MRSA, 11/19/16) 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) MRSA screen (nares) POSITIVE - 11/18/16 Medications Current Medications Medications (Trade) Dose Ordered Sig/Baldo Route Start Time Stop Time Status Last Admin (Levophed-Dextrose Drip) 250 ml @ 0 mls/hr TITRATE IV 11/18/16 21:30 11/18/16 21:57 (Brethine Inj) 1 mg UNSCH PRN SQ 11/18/16 21:30 (Buspar) 15 mg BID PO 11/19/16 09:00 11/20/16 10:51 (Folate) 1 mg DAILY PO 11/19/16 09:00 11/20/16 10:52 (Lactulose Liq) 15 ml BID PO 11/19/16 09:00 11/20/16 10:54 (Keppra) 500 mg BID PO 11/19/16 09:00 11/20/16 10:52 (Zanaflex) 4 mg TID PO 11/19/16 09:00 11/20/16 10:52 Non-Formulary Medication 1 tab 1 tab DAILY PO 11/19/16 09:00 UNV (NS 1000 ml Inj) 1,000 ml @ 84 mls/hr [id number] IV 11/18/16 22:39 11/19/16 22:04 (NS Flush) 2 ml UNSCH PRN .XX 11/18/16 22:45 (NS Flush) 2 ml BID .XX 11/19/16 09:00 11/20/16 10:55 (Tylenol) 650 mg Q6H PRN PO 11/18/16 22:45 (Morphine Inj) 2 mg Q2H PRN IV 11/18/16 22:45 11/20/16 10:53 (Ativan Inj) 1 mg Q1H PRN IV 11/18/16 22:45 11/19/16 19:48 (Zofran Inj) 4 mg Q6H PRN IV 11/18/16 22:45 11/19/16 00:49 Miscellaneous Information 1 Q361D XX 11/18/16 22:45 (Chlorhexidine 2% Cloth) 3 pack Taper DAILY@04 TOP 11/19/16 04:00 11/15/17 03:59 11/20/16 04:00 (Chlorhexidine 2% Cloth) 3 pack UNSCH PRN TOP 11/18/16 22:45 (Neha-Colace) 1 tab BID PO 11/19/16 09:00 11/20/16 10:51 (Milk Of Magnesia Liq) 30 ml Q12H PRN PO 11/18/16 22:45 (Senokot) 17.2 mg Q12H PRN PO 11/18/16 22:45 (Dulcolax Supp) 10 mg DAILY PRN RECTAL 11/18/16 22:45 Lactulose 30 ml 30 ml DAILY PRN PO 11/18/16 22:45 Pantoprazole Sodium 80 mg/ Sodium Chloride 100 ml @ 10 mls/hr Q10H IV 11/18/16 23:45 11/20/16 05:28 Octreotide Acetate 500 mcg/ Sodium Chloride 500.0 ml @ 25 mls/hr Q20H IV 11/18/16 00:30 11/19/16 19:27 (Rocephin Inj/NS Inj) 100 ml @ 200 mls/hr Q24H IV 11/18/16 23:00 11/20/16 00:00 (Bactroban Nasal 2% Oint) 1 applic BID NASAL 11/19/16 11:00 11/23/16 21:01 11/20/16 10:52 Family History Mom had esophageal cancer, liver cancer, and pancreatic cancer. Father had liver cirrhosis (hx of ETOH abuse) Social History Smokes Sober for 90 days but had a drink the day prior to admission States she has not used any illicit drugs for few months (Barbara Godwin) GI Exam Vitals I&O Vital Signs Date Time Temp Pulse Resp B/P Pulse Ox O2 Delivery O2 Flow Rate FiO2 11/20/16 08:00 68 11/20/16 07:25 93 Nasal Cannula 2.00 11/20/16 06:00 66 11/20/16 04:15 97.8 69 21 116/55 94 11/20/16 04:00 98.3 65 20 112/67 94 11/20/16 04:00 65 11/20/16 02:00 58 11/20/16 00:00 98.6 65 18 91/49 89 11/20/16 00:00 65 11/19/16 22:00 66 11/19/16 20:00 98.6 70 18 113/66 90 11/19/16 20:00 70 11/19/16 18:00 71 11/19/16 16:00 72 11/19/16 16:00 98.3 72 17 101/63 91 11/19/16 14:00 72 I/O 11/19/16 11/19/16 11/19/16 11/20/16 11/20/16 11/20/16 07:00 15:00 23:00 07:00 15:00 23:00 Intake Total 851 ml 720 ml 1178 ml 744 ml Output Total 0 ml Balance 851 ml 720 ml 1178 ml 744 ml Intake Oral 0 ml 0 ml 50 ml 0 ml IV Total 301 ml 320 ml 1128 ml 494 ml Albumin 400 ml Packed Cells 550 ml 250 ml Output Urine Total 0 ml # Voids 1 2 2 # Bowel Movements 0 0 0 Imaging Last Impressions Chest X-Ray 11/18/16 0000 Signed Impressions: Service Date/Time: October 23:03 - CONCLUSION: Left IJ central venous catheter in place with the tip in the region of the cavoatrial junction. No evidence of pneumothorax. Grant Mackey MD Laboratory Test 11/19/16 11/19/16 11/20/16 21:42 23:15 09:30 Hemoglobin 6.8 GM/DL 9.7 GM/DL Hematocrit 19.7 % 28.3 % Blood Type O NEGATIVE Crossmatch Leukocyte-Reduced Red Blood Cells Blood Bank Comment White Blood Count 3.2 TH/MM3 Red Blood Count 3.28 MIL/MM3 Mean Corpuscular Volume 86.1 FL Mean Corpuscular Hemoglobin 29.5 PG Mean Corpuscular Hemoglobin 34.2 % Concent Red Cell Distribution Width 16.2 % Platelet Count 92 TH/MM3 Mean Platelet Volume 9.6 FL Sodium Level 143 MEQ/L Potassium Level 4.0 MEQ/L Chloride Level 113 MEQ/L Carbon Dioxide Level 23.4 MEQ/L Anion Gap 7 MEQ/L Blood Urea Nitrogen 21 MG/DL Creatinine 0.85 MG/DL Estimat Glomerular Filtration 71 ML/MIN Rate Random Glucose 88 MG/DL Calcium Level 7.7 MG/DL Phosphorus Level 2.9 MG/DL Magnesium Level 1.4 MG/DL Date/Time Procedure Status Source Growth 11/18/16 22:55 Aerobic Blood Culture - Preliminary Resulted Blood Peripheral NO GROWTH IN 2 DAYS 11/18/16 22:55 Anaerobic Blood Culture - Preliminary Resulted Blood Peripheral NO GROWTH IN 2 DAYS Physical Examination HEENT: normocephalic; atraumatic; no jaundice. NECK: Neck is supple, no JVD, no lymphadenopathy. CHEST: Chest is clear to auscultation and percussion. CARDIAC: Regular rate and rhythm with no murmur gallop or rubs. ABDOMEN: Soft, nondistended,right sided tenderness ; hepatosplenomegaly; bowel sounds are present in all four quadrants. EXTREMITIES: No clubbing, cyanosis, or edema. SKIN: Normal; no rash; no jaundice. 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 (Barbara Godwin) Assessment and Plan Plan - Upper GI bleeding with hematemesis. The patient reports that she began having nausea and vomiting consisting of red blood started on the 11/18 at 3 am and had multiple episodes, last episode being last night. no hematemesis since yesterday. hgb yesterday 6.8, today is 9.7 s/p 2 units of blood. States she has been sober for 90 days, but had a drink the day prior to admission. She had a recent hospitalization and under went EGD/colonoscopy with dr. Chavez EGD on ( 11/04/16) ---> minimal varices present grade 0-1, mild gastritis, normal duodenum, BX. benign. Colonoscopy on (11/05/16) was suboptimal with copious washing and suctioning a god examination was obtained, no potentially bleeding sites seen, normal colonoscopy through out. CT on (11/04/16) ---> interval development of tiny bilateral pleural effusion and slight increase in the ascites since the prior exam. During last admission, was evaluated by GS for gallstones, but was deemed not candidate for surgery. She denies melena or hematochezia. PPI, octreotide - N/V, abdominal pain. CT on (11/04/16) ---> interval development of tiny bilateral pleural effusion and slight increase in the ascites since the prior exam. During last admission, was evaluated by GS for gallstones, but was deemed not candidate for surgery - Liver cirrhosis secondary to chronic hepatitis C and hx of alcohol abuse. sober for 90 days, but had a drink the day prior to admission - Thrombocytopenia- plt 92 - High ammonia- 62, lactulose - Gallstones- evaluated by GS at previous admission, not a candidate - HCV, chronic. Tx naive. Not a candidate for tx until she has been off ETOH abuse x 6 months. PLAN: - Clear liquids - EGD on Tuesday unless actively bleeding - Continue octreotide drip for now - Continue Protonix drip from now - Monitor hh - Transfuse as needed - Notify GI for active bleed - Add Xifaxan - Cont. Lactulose - Supportive care - Further recommendations to follow based on results of above - Pt seen and examined by Dr. Willams and myself and this note is written on his behalf (Barbara Godwin) Physician Comments Patient seen and examined Agree with above Continue with current supportive care Monitor labs Probable upper endoscopy on Tuesday (Sami Willams MD) Barbara Godwin Nov 20, 2016 12:41 Sami Willams MD Nov 20, 2016 18:10
[2016-11-20 13:21] LABS: ALT (GPT) 31 U/L (10-53); AMYLASE 38 U/L (25-115); AST (GOT) 52 U/L (15-37)
[2016-11-20 13:53] LABS: ALKALINE PHOSPHATASE 73 U/L (45-117); BETA HCG QUANT LESS THAN 1 MIU/ML (0-5); INDIRECT BILIRUBIN 0.5 MG/DL (0.0-0.8); TOTAL BILIRUBIN ADULT 0.9 MG/DL (0.2-1.0)
[2016-11-20] MEDS: LORazepam 2 MG/ML VIAL IV PRN ×2 (15:13→22:57)
[2016-11-20] MEDS: OCTREOTIDE INJ 500 MCG in SODIUM CHLORID 0.9% 500 ML INJ 499.5 ML IV SCH (16:09)
[2016-11-20] MEDS: RIFAXIMIN 200 MG TAB PO SCH ×2 (16:10→21:42)
[2016-11-20] MEDS: SODIUM CHLOR 0.9% 1000 ML INJ 1,000 ML IV SCH ×2 (16:14→21:42)
[2016-11-20] MEDS ORDERED: MAGNESIUM SULFATE INJ 2 GM in SODIUM CHLORIDE 0.9% INJ 96 ML IV PRN (18:45)
[2016-11-20] MEDS ORDERED: POTASSIUM PHOSPHATE MONOBASIC 500 MG TAB PO/TUBE PRN (18:45)
[2016-11-20] MEDS ORDERED: POTASSIUM CHLOR 40 MEQ PREMIX 100 ML IV PRN ×2 (18:45)
[2016-11-20] MEDS ORDERED: POTASSIUM CHLOR 20 MEQ PREMIX 100 ML IV PRN ×2 (18:45)
[2016-11-20] MEDS ORDERED: POTASSIUM PHOSPHATE INJ 30 MMOL in SODIUM CHLOR 0.9% 250 ML INJ 250 ML IV PRN (18:45)
[2016-11-20] MEDS ORDERED: SODIUM PHOSPHATE INJ 30 MMOL in SODIUM CHLOR 0.9% 250 ML INJ 240 ML IV PRN (18:45)
[2016-11-20] MEDS ORDERED: POTASSIUM PHOSPHATE MONOBASIC 500 MG TAB PO PRN (18:45)
[2016-11-20] MEDS ORDERED: POTASSIUM CHLORIDE 25 MEQ EFFERVESCENT TAB PO PRN (18:45)
[2016-11-20] MEDS ORDERED: MAGNESIUM OXIDE 400 MG TAB PO PRN (18:45)
[2016-11-20] MEDS ORDERED: MAGNESIUM SULFATE INJ 4 GM in SODIUM CHLORIDE 0.9% INJ 92 ML IV PRN (18:45)
--- NOTE | 2016-11-20 18:52 | HHI.CCPN ---
Subjective Remarks/Hospital Course The patient presents with a complaint of chronic right upper quadrant pain. She states that she has known gallstone but that they cannot operate upon her because she is a poor risk. She states that she presents to the emergency department tonight because she started vomiting blood. Onset was about 3 AM. It is unclear how many times she vomited blood. This stopped about 8 AM. She denies any bloody or melanotic stool. She denies fever. She is otherwise not nauseous. No known modifying factors. Subjective: 11/19: The patient continues on Protonix and octreotide infusions. No hematemesis since admission to ICU. Patient requesting a diet. Hemoglobin stable. 11/20: Patient c/o generalized abdominal pain.CT abd/ pelvis pending. The patient required 2 units of PRBCs overnight, and continues on Sandostatin and Protonix infusions. Objective Vital Signs Date Time Temp Pulse Resp B/P Pulse Ox O2 Delivery O2 Flow Rate FiO2 11/20/16 12:33 98.5 11/20/16 12:00 69 16 125/76 94 11/20/16 07:25 Nasal Cannula 2.00 Intake and Output 11/19/16 11/19/16 11/19/16 07:59 15:59 23:59 Intake Total 851 ml 720 ml 1178 ml Output Total 0 ml Balance 851 ml 720 ml 1178 ml Result Diagram: 11/20/16 0930 11/20/16 0930 Objective Remarks GENERAL: Well-developed well-nourished female looking older than stated age SKIN: Warm and dry. HEAD: Normocephalic. EYES: No scleral icterus. No injection or drainage. NECK: Supple, trachea midline. No JVD or lymphadenopathy. CARDIOVASCULAR: Regular rate and rhythm without murmurs, gallops, or rubs. RESPIRATORY: Breath sounds equal bilaterally. No accessory muscle use. GASTROINTESTINAL: Abdomen soft, non-tender, nondistended. MUSCULOSKELETAL: No cyanosis, or edema. EXTREMITIES: No clubbing cyanosis or edema moves all 4 A/P Assessment and Plan Hematemesis - Octreotide drip - Pantoprazole drip - Guy tube at the bedside - GI consult- F/U recommendations tentative plan for upper endoscopy on 11/22 - Darrion empirically -Monitor H&H every 12 hours - 11/20 CT Abd/pelvis pending -Maintain NPO status Seizure disorder - Keppra Liver cirrhosis Hepatitis C - Lactulose - Hold Lasix and spironolactone until hemodynamically more stable COPD - No exacerbation - DuoNeb's scheduled and when necessary - No indication for steroids DVT GI prophylaxis - Teds SCDs - No pharmacological DVT prophylaxis due to GI bleeding - Protonix drip Critical Care: Level 3 Physician Jolynn Glasgow MD Nov 20, 2016 18:52
[2016-11-20] MEDS: cefTRIAXone INJ 1,000 MG in SODIUM CHLORIDE 0.9% INJ 100 ML IV SCH ×3 (21:43)
[2016-11-20 22:01] LABS: HEMATOCRIT 28.8 % (35.0-46.0)
[2016-11-20 22:02] LABS: REVIEW FLAG FINAL
--- NOTE | 2016-11-20 23:05 | RADRPT ---
EXAM DATE/TIME: 11/20/2016 22:26 [facility] COMPARISON: CT ABDOMEN & PELVIS W/O CONTRAST, January 05, 2016, 17:51. INDICATIONS : Cirrhosis; GI bleed. ORAL CONTRAST: Prescribed oral contrast ingested. RADIATION DOSE: 15.43 CTDIvol (mGy) MEDICAL HISTORY : Chronic obstructive pulmonary disease. Hernia, hiatal. Pancreatitis.Hypertension. SURGICAL HISTORY : None. ENCOUNTER: Initial ACUITY: 1 day PAIN SCALE: 0/10 LOCATION: Bilateral abdomen TECHNIQUE: Volumetric scanning of the abdomen and pelvis was performed. Using automated exposure control and ad justment of the mA and/or kV according to patient size, radiation dose was kept as low as reasonably achievable to obtain optimal diagnostic quality images. DICOM format image data is available electro nically for review and comparison. FINDINGS: LOWER LUNGS: Bilateral pleural effusions, right slightly larger than the left with the right effusion measuring 1. 8 cm. There is some mild compressive atelectasis in the right lower lung. LIVER: Homogeneous density without lesion for noncontrast technique. Mildly nodular surface contour. There is no dilation of the biliary tree. 7 mm calcified gallstone.SPLEEN: Splenomegaly with craniocaudal dimension 15.3 cm. PANCREAS: Within normal limits. KIDNEYS: Normal in size and shape. There is no mass, stone, or hydronephrosis. ADRENAL GLANDS: Within normal limits. VASCULAR: There is no aortic aneurysm. BOWEL/MESENTERY: No oral contrast seen. Small bowel loops measure up to 3.1 cm in dimension. No disproportionately d ilated loops seen. Mild amount of stool throughout the colon. There is a moderate amount of free fl uid in the pelvis and along the root of the mesentery. No tracking up the paracolic gutters.. ABDOMINAL WALL: Within normal limits. RETROPERITONEUM: There is no lymphadenopathy. BLADDER: No wall thickening or mass. REPRODUCTIVE: Within normal limits. INGUINAL: There is no lymphadenopathy or hernia. MUSCULOSKELETAL: Within normal limits for patient age. CONCLUSION: 1. Findings characteristic of cirrhosis including lobular contour to the liver and splenomegaly. No significant varices seen. 2. Bilateral pleural effusions, right greater than left. 3. Gallstone. 4. Moderate amount of free fluid in the pelvis and lower abdomen. Anam Richards MD on November 20, 2016 at 22:58 Board Certified Radiologist. This report was verified electronically.
[2016-11-21] VITALS (20 sets, daily range): BP systolic 121–158; BP diastolic 67–91; PULSE 47–85; RESP 16–28; TEMP 98.3–99; O2SAT 90–98
[2016-11-21] MEDS: PANTOPRAZOLE INJ 80 MG in SODIUM CHLORIDE 0.9% INJ 100 ML IV SCH ×3 (03:01→21:07)
[2016-11-21 03:50] LABS: AUTOMATED NEUTROPHIL # 2.2 TH/MM3 (1.8-7.7); BASOPHIL % 1.2 % (0.0-2.0); EOSINOPHIL # 0.2 TH/MM3 (0-0.4); HEMATOCRIT 27.5 % (35.0-46.0); LYMPH % 21.7 % (9.0-44.0); LYMPHOCYTE # 0.8 TH/MM3 (1.0-4.8); MEAN CELL VOLUME 85.2 FL (80.0-100.0); MEAN CORPUSCULAR HEMOGLOBIN 29.1 PG (27.0-34.0); MEAN CORPUSCULAR HGB CONC 34.2 % (32.0-36.0); MONO % 10.3 % (0.0-8.0); NEUT % 61.8 % (16.0-70.0); PLATELET COUNT 91 TH/MM3 (150-450); RED BLOOD COUNT 3.23 MIL/MM3 (4.00-5.30); WHITE BLOOD COUNT 3.5 TH/MM3 (4.0-11.0)
[2016-11-21 03:54] LABS: HEMO FLAGS AUTO DIFF
[2016-11-21] MEDS: CHLORHEXIDINE GLUCONATE 2 % 1 PACK (2 CLOTHS) TOP SCH (04:00)
[2016-11-21 04:08] LABS: BICARBONATE 24.7 MEQ/L (21.0-32.0); MAGNESIUM 1.3 MG/DL (1.5-2.5); POTASSIUM 3.7 MEQ/L (3.5-5.1)
[2016-11-21 04:15] LABS: PLATELET ESTIMATE SMEAR LOW (NORMAL); PLATELET MORPHOLOGY NORMAL (NORMAL); SCAN/DIFF AUTO DIFF CONFIRMED
[2016-11-21] MEDS: MORPHINE SULFATE 4 MG/ML INJ IV PRN ×3 (04:28→17:34)
[2016-11-21] MEDS: LORazepam 2 MG/ML VIAL IV PRN ×2 (04:29→10:56)
[2016-11-21] MEDS: RIFAXIMIN 200 MG TAB PO SCH ×3 (05:08→22:53)
--- NOTE | 2016-11-21 10:20 | HHI.GIFU ---
Subjective Remarks Lying in bed, in no distress. Reports ongoing nausea. Last episode of vomiting was last night with hematemesis. Has abdominal pain located at epigastric region with radiation to right abdominal area. (Muriel Godoy) Objective Vitals I&O Vital Signs Date Time Temp Pulse Resp B/P Pulse Ox O2 Delivery O2 Flow Rate FiO2 11/21/16 07:29 91 Nasal Cannula 2.00 11/21/16 06:00 61 11/21/16 04:33 14 11/21/16 04:00 98.5 85 18 153/71 90 11/21/16 04:00 85 11/21/16 02:00 69 11/21/16 01:46 98 Nasal Cannula 2.00 11/21/16 00:00 64 11/21/16 00:00 98.8 64 16 123/67 93 11/20/16 22:00 56 11/20/16 20:00 99.0 62 18 135/71 93 11/20/16 20:00 62 11/20/16 12:33 98.5 11/20/16 12:00 69 16 125/76 94 11/20/16 11:00 70 21 112/67 96 I/O 11/20/16 11/20/16 11/20/16 11/21/16 11/21/16 11/21/16 07:00 15:00 23:00 07:00 15:00 23:00 Intake Total 744 ml 3439 ml 744 ml Balance 744 ml 3439 ml 744 ml Intake Oral 0 ml 720 ml 120 ml IV Total 494 ml 2719 ml 624 ml Packed Cells 250 ml # Voids 2 6 2 # Bowel Movements 0 0 0 Laboratory Laboratory Tests Test 11/20/16 11/20/16 11/21/16 20:00 22:10 03:20 Hemoglobin 9.4 9.4 Hematocrit 28.8 27.5 Phosphorus Level 3.2 3.8 White Blood Count 3.5 Red Blood Count 3.23 Mean Corpuscular Volume 85.2 Mean Corpuscular Hemoglobin 29.1 Mean Corpuscular Hemoglobin 34.2 Concent Red Cell Distribution Width 16.0 Platelet Count 91 Mean Platelet Volume 9.4 Neutrophils (%) (Auto) 61.8 Lymphocytes (%) (Auto) 21.7 Monocytes (%) (Auto) 10.3 Eosinophils (%) (Auto) 5.0 Basophils (%) (Auto) 1.2 Neutrophils # (Auto) 2.2 Lymphocytes # (Auto) 0.8 Monocytes # (Auto) 0.4 Eosinophils # (Auto) 0.2 Basophils # (Auto) 0.0 CBC Comment AUTO DIFF Differential Comment AUTO DIFF CONFIRMED Platelet Estimate LOW Platelet Morphology Comment NORMAL Red Cell Morphology Comment NORMAL Sodium Level 143 Potassium Level 3.7 Chloride Level 112 Carbon Dioxide Level 24.7 Anion Gap 6 Blood Urea Nitrogen 12 Creatinine 0.71 Estimat Glomerular Filtration 88 Rate Random Glucose 81 Calcium Level 7.9 Magnesium Level 1.3 Date/Time Procedure Status Source Growth 11/18/16 22:55 Aerobic Blood Culture - Preliminary Resulted Blood Peripheral 11/18/16 22:55 Anaerobic Blood Culture - Preliminary Resulted Blood Peripheral NO GROWTH IN 2 DAYS Imaging Last Impressions Abdomen/Pelvis CT 11/20/16 0000 Signed Impressions: Service Date/Time: Sunday, November 20, 2016 22:26 - CONCLUSION: 1. Findings characteristic of cirrhosis including lobular contour to the liver and splenomegaly. No significant varices seen. 2. Bilateral pleural effusions, right greater than left. 3. Gallstone. 4. Moderate amount of free fluid in the pelvis and lower abdomen. Anam Richards MD Chest X-Ray 11/18/16 0000 Signed Impressions: Service Date/Time: October 23:03 - CONCLUSION: Left IJ central venous catheter in place with the tip in the region of the cavoatrial junction. No evidence of pneumothorax. Grant Mackey MD Physical Exam HEENT: PERRLA; normocephalic; atraumatic; no jaundice. Throat is clear. NECK: Neck is supple, no JVD, no lymphadenopathy. CHEST: CTA CARDIAC: RRR, with no murmur gallop or rubs. ABDOMEN: Soft, nondistended,right sided tenderness; hepatosplenomegaly; bowel sounds x four quadrants. EXTREMITIES: No clubbing, cyanosis, or edema. SKIN: Normal; no rash; no jaundice. 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 (Muriel Godoy) Assessment and Plan Plan ASSESSMENT - Upper GI bleeding with hematemesis. The patient reports that she began having nausea and vomiting consisting of red blood started on the 11/18 at 3 am and had multiple episodes. Reports episode of hematemesis last night. States she has been sober for 90 days, but had a drink the day prior to admission. She had a recent hospitalization and under went EGD/colonoscopy with Dr. Chavez EGD on (11/04/16) ---> minimal varices present grade 0-1, mild gastritis, normal duodenum, BX. benign. Colonoscopy on (11/05/16) was suboptimal with copious washing and suctioning a god examination was obtained, no potentially bleeding sites seen, normal colonoscopy through out. CT on (11/04/16) ---> interval development of tiny bilateral pleural effusion and slight increase in the ascites since the prior exam. During last admission, was evaluated by GS for gallstones, but was deemed not candidate for surgery. She denies melena or hematochezia. PPI, octreotide. HH (11/21), 9.08/19.5. - N/V, abdominal pain. CT on (11/04/16) ---> interval development of tiny bilateral pleural effusion and slight increase in the ascites since the prior exam. During last admission, was evaluated by GS for gallstones, but was deemed not candidate for surgery. Abdomen/Pelvis CT 11/20/16--1. Findings characteristic of cirrhosis including lobular contour to the liver and splenomegaly. No significant varices seen. 2. Bilateral pleural effusions, right greater than left. 3. Gallstone. 4. Moderate amount of free fluid in the pelvis and lower abdomen. - Liver cirrhosis secondary to chronic hepatitis C and hx of alcohol abuse. Sober for 90 days, but had a drink the day prior to admission - Thrombocytopenia- Platelet 91 - High ammonia- 62 (11/19), lactulose - Gallstones- evaluated by GS at previous admission, not a candidate - HCV, chronic. Tx naive. Not a candidate for tx until she has been off ETOH abuse x 6 months. PLAN: - Clear liquids - EGD on Tuesday unless actively bleeding - Continue octreotide drip for now - Continue Protonix drip from now - Monitor HH, transfuse as needed. - Notify GI for active bleed - Cont. Xifaxan - Cont. Lactulose - Supportive care - Further recommendations to follow based on results of above Patient seen and examined by Dr. Willams and myself and this note is written on his behalf (Muriel Godoy) Physician Comments Patient seen and examined Agree with above Continue with current supportive care Monitor labs EGD tomorrow (Sami Willams MD) Muriel Godoy Nov 21, 2016 10:20 Sami Willams MD Nov 21, 2016 19:46
[2016-11-21] MEDS: MUPIROCIN 2% OINT 1 APPLIC/GM SYR NASAL SCH ×2 (10:35→21:04)
[2016-11-21] MEDS: DOCUSATE SODIUM 50 MG/SENNA 8.6 MG TAB PO SCH ×2 (10:36→21:04)
[2016-11-21] MEDS: LACTULOSE SYRUP 20 GM/30 ML CUP PO SCH ×2 (10:36→21:05)
[2016-11-21] MEDS: FOLIC ACID 1 MG TAB PO SCH (10:36)
[2016-11-21] MEDS: SODIUM CHLORIDE 0.9% FLUSH 10 ML FLUSH SCH ×2 (10:37→21:05)
[2016-11-21] MEDS: levETIRAcetam 500 MG TAB PO SCH ×2 (10:37→21:04)
[2016-11-21] MEDS: busPIRone HCL 5 MG TAB PO SCH ×2 (10:37→21:05)
[2016-11-21] MEDS: SODIUM CHLOR 0.9% 1000 ML INJ 1,000 ML IV SCH ×2 (10:56→21:08)
--- NOTE | 2016-11-21 16:24 | HHI.CCPN ---
Subjective Remarks/Hospital Course The patient presents with a complaint of chronic right upper quadrant pain. She states that she has known gallstone but that they cannot operate upon her because she is a poor risk. She states that she presents to the emergency department tonight because she started vomiting blood. Onset was about 3 AM. It is unclear how many times she vomited blood. This stopped about 8 AM. She denies any bloody or melanotic stool. She denies fever. She is otherwise not nauseous. No known modifying factors. Subjective: 11/19: The patient continues on Protonix and octreotide infusions. No hematemesis since admission to ICU. Patient requesting a diet. Hemoglobin stable. 11/20: Patient c/o generalized abdominal pain.CT abd/ pelvis pending. The patient required 2 units of PRBCs overnight, and continues on Sandostatin and Protonix infusions. 11/21: Resting in bed. Complains of abdominal pain. Objective Vital Signs Date Time Temp Pulse Resp B/P Pulse Ox O2 Delivery O2 Flow Rate FiO2 11/21/16 07:29 91 Nasal Cannula 2.00 11/21/16 06:00 61 11/21/16 04:33 14 11/21/16 04:00 98.5 153/71 Intake and Output 11/20/16 11/20/16 11/21/16 08:00 16:00 00:00 Intake Total 744 ml 3439 ml Balance 744 ml 3439 ml Result Diagram: 11/21/16 0320 11/21/16 0320 Objective Remarks GENERAL: Well-developed well-nourished female looking older than stated age SKIN: Warm and dry. HEAD: Normocephalic. EYES: No scleral icterus. No injection or drainage. NECK: Supple, trachea midline. No JVD or lymphadenopathy. CARDIOVASCULAR: Regular rate and rhythm without murmurs, gallops, or rubs. RESPIRATORY: Breath sounds equal bilaterally. No accessory muscle use. GASTROINTESTINAL: Abdomen soft, non-tender, nondistended. MUSCULOSKELETAL: No cyanosis, or edema. EXTREMITIES: No clubbing cyanosis or edema moves all 4 A/P Assessment and Plan Hematemesis - Octreotide drip - Pantoprazole drip - GI consult- F/U recommendations tentative plan for upper endoscopy/ colonoscopy on Mon 11/22 - Darrion empirically -Monitor H&H every 12 hours - 11/20 CT Abd/pelvis with ascites, bilat pleural effsuions and nodular cirrhotic appearing liver, gallstones. Defer to GI regarding management of gallstones. - Clear liquids per GI Seizure disorder - Keppra Liver cirrhosis Hepatitis C - Lactulose - Hold Lasix and spironolactone until hemodynamically more stable COPD - No exacerbation - DuoNeb's scheduled and when necessary - No indication for steroids DVT GI prophylaxis - Teds SCDs - No pharmacological DVT prophylaxis due to GI bleeding - Protonix drip Consult and transfer to hospitalist service for further medical management, critical care will be signing off. Please reconsult if needed. Ayaz Palencia MD Nov 21, 2016 16:24
[2016-11-21] MEDS: OCTREOTIDE INJ 500 MCG in SODIUM CHLORID 0.9% 500 ML INJ 499.5 ML IV SCH (16:29)
[2016-11-21 20:58] LABS: REVIEW FLAG FINAL
[2016-11-21] MEDS: cefTRIAXone INJ 1,000 MG in SODIUM CHLORIDE 0.9% INJ 100 ML IV SCH (21:06)
[2016-11-22] VITALS (15 sets, daily range): BP systolic 112–169; BP diastolic 58–92; PULSE 50–93; RESP 14–31; TEMP 97.5–99.1; O2SAT 93–99
[2016-11-22] MEDS: LORazepam 2 MG/ML VIAL IV PRN ×2 (01:38→08:17)
[2016-11-22] MEDS: MORPHINE SULFATE 4 MG/ML INJ IV PRN ×4 (01:39→23:02)
[2016-11-22 02:42] LABS: AUTOMATED NEUTROPHIL # 3.4 TH/MM3 (1.8-7.7); BASOPHIL % 0.8 % (0.0-2.0); EOSINOPHIL # 0.1 TH/MM3 (0-0.4); EOSINOPHIL % 2.9 % (0.0-4.0); HEMATOCRIT 29.1 % (35.0-46.0); HEMO FLAGS DIFF FINAL; LYMPH % 15.2 % (9.0-44.0); LYMPHOCYTE # 0.7 TH/MM3 (1.0-4.8); MEAN CELL VOLUME 87.5 FL (80.0-100.0); MEAN CORPUSCULAR HGB CONC 33.1 % (32.0-36.0); MONO % 9.2 % (0.0-8.0); NEUT % 71.9 % (16.0-70.0); PLATELET COUNT 105 TH/MM3 (150-450); RED BLOOD COUNT 3.32 MIL/MM3 (4.00-5.30); RED CELL DISTRIBUTION WIDTH 15.6 % (11.6-17.2); WHITE BLOOD COUNT 4.8 TH/MM3 (4.0-11.0)
[2016-11-22 03:02] LABS: ALT (GPT) 28 U/L (10-53); ANION GAP 4 MEQ/L (5-15); AST (GOT) 38 U/L (15-37); BICARBONATE 27.6 MEQ/L (21.0-32.0); BLOOD UREA NITROGEN 6 MG/DL (7-18); CHLORIDE 109 MEQ/L (98-107); GLOMERULAR FILTRATION RATE 89 ML/MIN (>89); POTASSIUM 3.4 MEQ/L (3.5-5.1); SODIUM (NA) 141 MEQ/L (136-145)
[2016-11-22 03:04] LABS: ALKALINE PHOSPHATASE 96 U/L (45-117); TOTAL BILIRUBIN ADULT 1.2 MG/DL (0.2-1.0)
[2016-11-22 03:31] LABS: APTT (PATIENT) 27.9 SEC (24.3-30.1); INTERNATIONAL NORMALIZED RATIO 1.1 RATIO; PROTHROMBIN TIME - PATIENT 12.7 SEC (9.8-11.6)
[2016-11-22] MEDS: CHLORHEXIDINE GLUCONATE 2 % 1 PACK (2 CLOTHS) TOP SCH (04:00)
[2016-11-22] MEDS: LEVOTHYROXINE SODIUM 100 MCG TAB PO SCH (05:22)
[2016-11-22] MEDS: LACTULOSE SYRUP 20 GM/30 ML CUP PO SCH ×2 (09:00→20:53)
[2016-11-22] MEDS: MUPIROCIN 2% OINT 1 APPLIC/GM SYR NASAL SCH ×2 (09:00→20:54)
[2016-11-22] MEDS: DOCUSATE SODIUM 50 MG/SENNA 8.6 MG TAB PO SCH ×2 (09:00→20:54)
[2016-11-22] MEDS: SODIUM CHLORIDE 0.9% FLUSH 10 ML FLUSH SCH ×2 (09:00→21:00)
[2016-11-22] MEDS: FOLIC ACID 1 MG TAB PO SCH (09:17)
[2016-11-22] MEDS: levETIRAcetam 500 MG TAB PO SCH ×2 (09:17→20:54)
[2016-11-22] MEDS: busPIRone HCL 5 MG TAB PO SCH ×2 (09:17→20:54)
[2016-11-22] MEDS: SODIUM CHLOR 0.9% 1000 ML INJ 1,000 ML IV SCH (10:27)
[2016-11-22] MEDS: PANTOPRAZOLE INJ 80 MG in SODIUM CHLORIDE 0.9% INJ 100 ML IV SCH ×2 (10:27→17:40)
--- NOTE | 2016-11-22 13:31 | HHI.CCPN ---
Subjective Remarks/Hospital Course The patient presents with a complaint of chronic right upper quadrant pain. She states that she has known gallstone but that they cannot operate upon her because she is a poor risk. She states that she presents to the emergency department tonight because she started vomiting blood. Onset was about 3 AM. It is unclear how many times she vomited blood. This stopped about 8 AM. She denies any bloody or melanotic stool. She denies fever. She is otherwise not nauseous. No known modifying factors. Subjective: 11/19: The patient continues on Protonix and octreotide infusions. No hematemesis since admission to ICU. Patient requesting a diet. Hemoglobin stable. 11/20: Patient c/o generalized abdominal pain.CT abd/ pelvis pending. The patient required 2 units of PRBCs overnight, and continues on Sandostatin and Protonix infusions. 11/21: Resting in bed. Complains of abdominal pain. 11/22: Resting in bed. Complains of abdominal pain. Awaiting endoscopy. Hgb has remained stable Objective Vital Signs Date Time Temp Pulse Resp B/P Pulse Ox O2 Delivery O2 Flow Rate FiO2 11/22/16 12:00 75 11/22/16 12:00 99.0 14 112/58 99 11/22/16 07:10 Simple Mask 6.00 Intake and Output 11/21/16 11/21/16 11/22/16 08:00 16:00 00:00 Intake Total 744 ml 2123 ml Balance 744 ml 2123 ml Result Diagram: 11/22/16 0200 11/22/16 0200 Objective Remarks GENERAL: Well-developed well-nourished female looking older than stated age SKIN: Warm and dry. HEAD: Normocephalic. EYES: No scleral icterus. No injection or drainage. NECK: Supple, trachea midline. No JVD or lymphadenopathy. CARDIOVASCULAR: Regular rate and rhythm without murmurs, gallops, or rubs. RESPIRATORY: Breath sounds equal bilaterally. No accessory muscle use. GASTROINTESTINAL: Abdomen soft, vague upper abdominal tenderness, minimal distention noted, no guarding. Bowel sounds present MUSCULOSKELETAL: No cyanosis, or edema. EXTREMITIES: No clubbing cyanosis or edema moves all 4 Neuro: Awake alert oriented 3, grossly nonfocal A/P Assessment and Plan Hematemesis - Octreotide drip - Pantoprazole drip - GI consult- F/U recommendations tentative plan for upper endoscopy/ colonoscopy on Mon 11/22 - Rocephin empirically -Monitor H&H every 12 hours - 11/20 CT Abd/pelvis with ascites, bilat pleural effsuions and nodular cirrhotic appearing liver, gallstones. Defer to GI regarding management of gallstones/ ascites. - Clear liquids per GI Seizure disorder - Keppra Liver cirrhosis Hepatitis C - Lactulose - Hold Lasix and spironolactone until hemodynamically more stable COPD - No exacerbation - DuoNeb's scheduled and when necessary - No indication for steroids DVT GI prophylaxis - Teds SCDs - No pharmacological DVT prophylaxis due to GI bleeding - Protonix drip Consult and transfer to hospitalist service for further medical management, critical care will be signing off. Please reconsult if needed. Ayaz Palencia MD Nov 22, 2016 13:31
[2016-11-22] MEDS: RIFAXIMIN 200 MG TAB PO SCH ×2 (14:00→22:57)
--- NOTE | 2016-11-22 17:18 | GIPROC ---
[facility] [address] [facility]. [facility], [address] EGD PROCEDURE REPORT EXAM DATE: 11/22/2016 PATIENT NAME: Debra Murray MR #: [id number] BIRTHDATE: 1970 ATTENDING: Bianca Adkins MD ORDER #: [id number] ECONOMICS CONSULTANT: Carly Conrad and Jeremy Carias STATUS: inpatient INDICATIONS: The patient is a 46 yr old female here for an EGD due to gi bleeding cirrhosis PROCEDURE PERFORMED: EGD w/ biopsy MEDICATIONS: None and Per Anesthesia. TOPICAL ANESTHETIC: none CONSENT: The patient understands the risks and benefits of the procedure and understands that these risks include, but are not limited to: sedation, allergic reaction, infection, perforation and/or bleeding. Alternative means of evaluation and treatment include, among others: physical exam, x-rays, and/or surgical intervention. The patient elects to proceed with this endoscopic procedure. medical equipment was checked for proper function. Hand hygiene and appropriate measures for infection prevention was taken. After the risks, benefits and alternatives of the procedure were thoroughly explained, Informed consent was verified, confirmed and timeout was successfully executed by the treatment team. The patient was anesthetized with topical anesthesia and the Pentax EG-[id number] endoscope was introduced through the mouth and advanced to the second portion of the duodenum. Retroflexed views revealed a hiatal hernia The gastroscope was then slowly withdrawn and removed. Gastritis antrum-biopsy esophagitis dital esophagus -biopsy. ADVERSE EVENTS: There were no complications. IMPRESSIONS: 1. Gastritis antrum-biopsy esophagitis dital esophagus -biopsy 2. Retroflexed views revealed a hiatal hernia RECOMMENDATIONS: 1. Anti-reflux regimen 2. Continue PPI PATIENT CONDITION: stable DISPOSITION: Inpatient REPEAT EXAM: EGD pending biopsy results Bianca Adkins MD eSigned: Bianca Adkins MD 11/22/2016 5:18 PM cc:
[2016-11-22] MEDS ORDERED: PROPOFOL 200 MG/20 ML AMP IV ONE (17:21)
--- NOTE | 2016-11-22 19:00 | PD.CONS ---
HPI Service [facility] Hospitalists Consult Requested By Dr. Palencia Reason for Consult Assume medical management Primary Care Physician Brandy Mendieta MD Diagnoses: History of Present Illness This a 46-year-old white female with significant past medical history of GI bleed secondary to esophageal varices, liver cirrhosis, alcohol abuse, tobacco abuse, COPD, hepatitis C, seizure disorder. Patient presented to the emergency room on 11/18/16 with complaint of chronic right upper quadrant pain, has known history of gallstones are inoperable as she is a high surgical risk. She also endorsed she started vomiting blood it was unclear how many times. During evaluation in the emergency room, her blood pressure dropped to 60s, she was fluid resuscitated. Her initial H&H was initially 8 then dropped to 6.8 and hematocrit of 20.3. She was admitted to the intensive care unit under track grinder operator services. She was put on Protonix and octreotide infusions, received 2 units of packed cells. Gastroenterology was consulted for evaluation. Today, patient underwent endoscopy procedure with findings of gastritis in the antrum, distal esophagitis. No active bleeding was noted, biopsies were taken. Her H&H has continued to improve, 9.6 and 29.1. The hasn' t been any hematemesis. She continues to complain of right upper quadrant pain. During a recent admission in early October, she was evaluated by Dr. Fox and was deemed a high surgical risk for surgery due to her comorbidities. Patient indicates that she's been trying to quit drinking, she is only drinking a couple of beers every 2-3 days. At this time, patient is very tearful and anxious. Denies any nausea, no vomiting. Patient is hemodynamically stable. Her initial ammonia was 62 on 11/19. She was transferred out of the intensive care unit today. Hospitalist services are requested for medical management. Review of Systems ROS Limitations: Poor Historian Respiratory: COMPLAINS OF: Cough, Wheezing, Shortness of breath Gastrointestinal: COMPLAINS OF: Abdominal pain, Nausea (resolved ), Vomiting ( resolved, no more hematemesis ) Psychiatric: COMPLAINS OF: Anxiety, Depression Past Family Social History Past Medical History Esophageal varices with banding Anemia Arthritis Asthma Chronic obstructive pulmonary disease Tobacco abuse Bipolar disorder Anxiety disorder Liver cirrhosis Borderline diabetes Diverticulitis Gastroesophageal reflux disease Headaches Hepatitis A and C Pancreatitis Seizure disorder Gastric ulcer disease Gallstones Past Surgical History Esophageal varices with banding Paracentesis Cervical curettage All teeth removal Arthritis right knee surgery Fracture of the right leg Bone grafting Reported Medications Reported Meds & Active Scripts Active Metoprolol Tartrate 25 Mg Tab 25 Mg PO BID Reported Keppra (Levetiracetam) 500 Mg Tab 500 Mg PO BID Buspirone (Buspirone HCl) 15 Mg Tab 15 Mg PO BID Folic Acid 800 Mcg Cap 800 Mcg PO DAILY Spironolactone 50 Mg Tab 50 Mg PO DAILY Tizanidine (Tizanidine HCl) 4 Mg Tab 4 Mg PO TID Levothyroxine (Levothyroxine Sodium) Unknown Strength Tab 1 Tab PO DAILY Zofran (Ondansetron HCl) Unknown Strength Tab 1 Tab PO Q6HR PRN Furosemide Unknown Strength Tab 40 Mg PO DAILY Lactulose Liq (Lactulose) 10 Gm/15 Ml Soln 15 Ml PO BID Allergies: Coded Allergies: *MDRO Multi-Drug Resistant Organism (Verified Adverse Reaction, Unknown, MRSA, 11/19/16) 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) MRSA screen (nares) POSITIVE - 11/18/16 Active Ordered Medications Inpatient Medications Acetaminophen (Tylenol) 650 mg Q6H PRN PO PAIN 1-5 AND/OR FEVER >101F; Start at 22:45 Acetaminophen 650 mg 650 mg ONCE ONCE PO ; Start 11/18/16 at 21:30; Stop at 21:31; Status DC Albumin Human (Albumin 5% Inj) 12.5 gm Q6H IV Last administered on 11/19/16 17 :37; Start 11/19/16 at 01:00; Stop 11/19/16 at 19:01; Status DC Albuterol/ Ipratropium (Duoneb Neb) 1 ampule Q2HR NEB PRN INH WHEEZING Last administered on 11/21/16 21:09; Start 11/18/16 at 22:45 Bisacodyl (Dulcolax Supp) 10 mg DAILY PRN RECTAL SEVERE CONSITIPATION; Start at 22:45 Buspirone HCl (Buspar) 15 mg BID PO Last administered on 11/22/16 09:17; Start 11/19/16 at 09:00 Ceftriaxone Sodium/Sodium Chloride (Rocephin Inj/NS Inj) 100 ml @ 200 mls/hr Q24H IV Last administered on 11/21/16 21:06; Start 11/18/16 at 23:00 Chlorhexidine Gluconate (Chlorhexidine 2% Cloth) 3 pack UNSCH PRN TOP HYGIENIC CARE; Start 11/18/16 at 22:45 Diphenhydramine HCl (Benadryl) 25 mg UNSCH X1 PRN PO ITCHING; Start 11/18/16 at 21:30; Stop 11/21/16 at 21:29; Status DC Folic Acid (Folate) 1 mg DAILY PO Last administered on 11/22/16 09:17; Start 11/19/16 at 09:00 Lactulose (Lactulose Liq) 15 ml BID PO Last administered on 11/21/16 21:05; Start 11/19/16 at 09:00 Lactulose 30 ml 30 ml DAILY PRN PO SEVERE CONSITIPATION; Start 11/18/16 at 22: 45 Levetriacetam (Keppra) 500 mg BID PO Last administered on 11/22/16 09:17; Start 11/19/16 at 09:00 Levothyroxine Sodium (Synthroid) 100 mcg DAILY@06 PO Last administered on 05:22; Start 11/22/16 at 06:00 Lorazepam (Ativan Inj) 1 mg Q1H PRN IV Agitation/Sedation Last administered on 11/22/16 08:17; Start 11/18/16 at 22:45 Magnesium Hydroxide (Milk Of Magnesia Liq) 30 ml Q12H PRN PO MILD - MODERATE CONSTIPATION; Start 11/18/16 at 22:45 Magnesium Oxide 800 mg 800 mg UNSCH PRN PO For Magnesium 1.2 - 1.6 mg/dL Last administered on 11/21/16 16:29; Start 11/20/16 at 18:45; Stop 11/22/16 at 16:21 ; Status DC Magnesium Sulfate 2 gm/Sodium Chloride 100 ml @ 50 mls/hr UNSCH PRN IV For Magnesium 1.2 - 1.6 mg/dL; Start 11/20/16 at 18:45; Stop 11/22/16 at 16:21; Status DC Magnesium Sulfate/ Sodium Chloride (Magnesium Sulfate Inj/NS Inj) 100 ml @ 50 mls/hr UNSCH PRN IV For Magnesium 0.9 - 1.1 mg/dL; Start 11/20/16 at 18:45; Stop 11/22/16 at 16:21; Status DC Miscellaneous Information 1 [id number] ; Start 11/18/16 at 22:45 Morphine Sulfate (Morphine Inj) 2 mg Q2H PRN IV PAIN SCALE 6 TO 10 Last administered on 11/22/16 17:45; Start 11/18/16 at 22:45 Mupirocin (Bactroban Nasal 2% Oint) 1 applic BID NASAL Last administered on 09:00; Start 11/19/16 at 11:00; Stop 11/23/16 at 21:01 Norepinephrine Bitartrate (Levophed-Dextrose Drip) 250 ml @ 0 mls/hr TITRATE IV Last administered on 11/18/16 21:57; Start 11/18/16 at 21:30 Octreotide Acetate 50 mcg 50 mcg ONCE ONCE IV Last administered on 11/18/16 22:45; Start 11/18/16 at 22:45; Stop 11/18/16 at 22:58; Status DC Octreotide Acetate 500 mcg/ Sodium Chloride 500.0 ml @ 25 mls/hr Q20H IV Last administered on 11/21/16 16:29; Start 11/18/16 at 00:30 Octreotide Acetate/Sodium Chloride (SandoSTATIN INJ/ NS 500 ml Inj) 500.5 ml @ 50 mls/hr Q10H IV ; Start 11/18/16 at 22:15; Stop 11/18/16 at 23:01; Status DC Octreotide Acetate (SandoSTATIN INJ) 100 mcg ONCE ONCE IV PUSH Last administered on 11/18/16 22:15; Start 11/18/16 at 22:15; Stop 11/18/16 at 22:16 ; Status DC Ondansetron HCl (Zofran Inj) 4 mg Q6H PRN IV NAUSEA OR VOMITING Last administered on 11/19/16 00:49; Start 11/18/16 at 22:45 Pantoprazole Sodium 80 mg/ Sodium Chloride 35 ml @ 420 mls/hr ONCE ONCE IV Last administered on 11/19/16 00:27; Start 11/18/16 at 23:45; Stop 11/18/16 at 23:49; Status DC Pantoprazole Sodium/Sodium Chloride (Protonix Inj/NS Inj) 100 ml @ 10 mls/hr Q10H IV Last administered on 11/22/16 17:40; Start 11/18/16 at 23:45 Potassium Phosphate 2000 mg 2,000 mg UNSCH PRN PO/TUBE SEE LABEL COMMENTS; Start 11/20/16 at 18:45; Stop 11/22/16 at 16:21; Status DC Potassium Phosphate/Sodium Chloride (Potassium Phosphate Inj/NS 250 ml Inj) 260 ml @ 42 mls/hr UNSCH PRN IV SEE LABEL COMMENTS; Start 11/20/16 at 18:45; Stop 11/22/16 at 16:21; Status DC Potassium Bicarb/ Potassium Chloride 50 meq 50 meq UNSCH PRN PO For Potassium 3.3 - 3.5 mEq/L; Start 11/20/16 at 18:45; Stop 11/22/16 at 16:21; Status DC Potassium Chloride 100 ml @ 50 mls/hr Q2H PRN IV For Potassium 3.3 - 3.5 mEq/L ; Start 11/20/16 at 18:45; Stop 11/22/16 at 16:21; Status DC Potassium Chloride (KCl 20 Meq Premix Inj) 100 ml @ 50 mls/hr Q2H PRN IV For Potassium 2.8 - 3.2 mEq/L; Start 11/20/16 at 18:45; Stop 11/22/16 at 16:20; Status DC Rifaximin 400 mg 400 mg Q8HR PO Last administered on 11/21/16 22:53; Start at 14:00 Senna/Docusate Sodium (Neha-Colace) 1 tab BID PO Last administered on 21:04; Start 11/19/16 at 09:00 Sennosides (Senokot) 17.2 mg Q12H PRN PO MODERATE - SEVERE CONSTIPATION; Start 11/18/16 at 22:45 Sodium Chloride (NS 1000 ml Inj) 1,000 ml @ 84 mls/hr [id number] IV Last administered on 11/22/16 10:27; Start 11/18/16 at 22:39 Sodium Chloride (NS Flush) 2 ml BID .XX Last administered on 11/21/16 21:05; Start 11/19/16 at 09:00 Sodium Chloride 2 ml 2 ml UNSCH PRN IV FLUSH FLUSH AFTER USING IV ACCESS; Start 11/18/16 at 19:15; Stop 11/18/16 at 23:00; Status DC Sodium Phosphate/ Sodium Chloride (Sodium Phosphate Inj/NS 250 ml Inj) 250 ml @ 42 mls/hr UNSCH PRN IV For Phosphorus < 2.5 mg/dL; Start 11/20/16 at 18:45; Stop 11/22/16 at 16:21; Status DC Terbutaline Sulfate (Brethine Inj) 1 mg UNSCH PRN SQ For Extravasation; Start 11/18/16 at 21:30 Tizanidine HCl 4 mg 4 mg TID PO Last administered on 11/22/16t 17:41; Start at 09:00 Family History Difficult to obtain Social History Lives with SO. Drinks 1-2 beers every few days, has been trying to cut down. Smoke 6-8 cigarettes a day. No illegal drug use. Physical Exam Vital Signs Vital Signs Date Time Temp Pulse Resp B/P Pulse Ox O2 Delivery O2 Flow Rate FiO2 11/22/16 17:51 16 11/22/16 17:30 67 11/22/16 17:30 82 22 152/91 94 11/22/16 17:28 63 16 148/74 94 11/22/16 17:18 60 16 136/83 96 11/22/16 17:08 98.0 61 16 133/81 95 11/22/16 12:00 75 11/22/16 12:00 99.0 61 14 112/58 99 11/22/16 10:00 75 11/22/16 08:00 99.1 84 31 131/64 98 11/22/16 08:00 75 11/22/16 07:10 98 Simple Mask 6.00 11/22/16 06:00 79 11/22/16 04:00 98.2 93 18 157/84 93 11/22/16 04:00 93 11/22/16 02:00 71 11/22/16 00:00 54 11/22/16 00:00 98.4 54 16 140/85 93 11/21/16 22:00 65 11/21/16 20:00 98.6 54 18 143/78 91 11/21/16 20:00 54 Physical Exam GENERAL: This is a well-nourished, well-developed patient, appears older than stated age. SKIN: No rashes, ecchymoses or lesions. Cool and dry. HEAD: Atraumatic. Normocephalic. No temporal or scalp tenderness. EYES: Pupils equal round and reactive. Extraocular motions intact. No scleral icterus. No injection or drainage. ENT: Nose without bleeding, purulent drainage or septal hematoma. Throat without erythema, tonsillar hypertrophy or exudate. Uvula midline. Airway patent. NECK: Trachea midline. No JVD or lymphadenopathy. Supple, nontender, no meningeal signs. CARDIOVASCULAR: Regular rate and rhythm without murmurs, gallops, or rubs. RESPIRATORY: Diminished poor inspiratory effort. GASTROINTESTINAL: Abdomen soft, mildly tender RUQ, slightly distended. Bowel sounds hypoactive x 4. No hepato-splenomegaly, or palpable masses. No guarding. MUSCULOSKELETAL: Extremities without clubbing, cyanosis, or edema. No joint tenderness, effusion, or edema noted. No calf tenderness. Negative Homans sign bilaterally. NEUROLOGICAL:Awake, slow to respond, oriented x 3. Sleepy from recent conscious sedation. Following commands. Laboratory Laboratory Tests Test 11/21/16 11/22/16 20:45 02:00 Hemoglobin 9.6 9.6 Hematocrit 29.0 29.1 White Blood Count 4.8 Red Blood Count 3.32 Mean Corpuscular Volume 87.5 Mean Corpuscular Hemoglobin 29.0 Mean Corpuscular Hemoglobin 33.1 Concent Red Cell Distribution Width 15.6 Platelet Count 105 Mean Platelet Volume 8.9 Neutrophils (%) (Auto) 71.9 Lymphocytes (%) (Auto) 15.2 Monocytes (%) (Auto) 9.2 Eosinophils (%) (Auto) 2.9 Basophils (%) (Auto) 0.8 Neutrophils # (Auto) 3.4 Lymphocytes # (Auto) 0.7 Monocytes # (Auto) 0.4 Eosinophils # (Auto) 0.1 Basophils # (Auto) 0.0 CBC Comment DIFF FINAL Differential Comment Prothrombin Time 12.7 Prothromb Time International 1.1 Ratio Activated Partial 27.9 Thromboplast Time Fibrinogen 253 Sodium Level 141 Potassium Level 3.4 Chloride Level 109 Carbon Dioxide Level 27.6 Anion Gap 4 Blood Urea Nitrogen 6 Creatinine 0.70 Estimat Glomerular Filtration 89 Rate Random Glucose 89 Calcium Level 7.7 Total Bilirubin 1.2 Aspartate Amino Transf 38 (AST/SGOT) Alanine Aminotransferase 28 (ALT/SGPT) Alkaline Phosphatase 96 Total Protein 6.7 Albumin 3.0 Date/Time Procedure Status Source Growth 11/18/16 22:55 Aerobic Blood Culture - Preliminary Resulted Blood Peripheral Corynebacterium Sp 11/18/16 22:55 Anaerobic Blood Culture - Preliminary Resulted Blood Peripheral NO GROWTH IN 4 DAYS Result Diagram: 11/22/16 0200 11/22/16 0200 Imaging Last Impressions Abdomen/Pelvis CT 11/20/16 0000 Signed Impressions: Service Date/Time: Sunday, November 20, 2016 22:26 - CONCLUSION: 1. Findings characteristic of cirrhosis including lobular contour to the liver and splenomegaly. No significant varices seen. 2. Bilateral pleural effusions, right greater than left. 3. Gallstone. 4. Moderate amount of free fluid in the pelvis and lower abdomen. Anam Richards MD Chest X-Ray 11/18/16 0000 Signed Impressions: Service Date/Time: October 23:03 - CONCLUSION: Left IJ central venous catheter in place with the tip in the region of the cavoatrial junction. No evidence of pneumothorax. Grant Mackey MD A/P Diagnosis: (1) Acute blood loss anemia (2) UGIB (upper gastrointestinal bleed) (3) Cirrhosis of liver (4) Gall stone (5) Hypovolemic shock (6) Bipolar disorder (7) Hypothyroidism (8) Hepatitis C (9) Depression (10) Alcohol abuse (11) COPD (chronic obstructive pulmonary disease) (12) Hematemesis (13) History of bipolar disorder (14) Hypokalemia (15) Acute renal failure (16) Seizure disorder Assessment and Plan Thank you for this consultation, we will assume medical management 46-year-old female with history of esophageal varices, GI bleeding, cirrhosis, alcohol abuse. Presented with hematemesis, was found in hypovolemic shock and blood loss anemia. Received 2 units of packed cells and was fluid resuscitated. Was initially admitted to intensive care unit. Status post EGD, findings of gastritis in esophagitis, no active bleeding. -Continue to monitor H&H, has stabilized. No further hematemesis Continue with PPI, change to PO -Continue clear liquid diet Chronic right upper quadrant pain, has known history of gallstones. Patient is a high surgical risk, was recently evaluated by general surgery Continue to monitor and manage pain Liver cirrhosis Alcohol abuse. Hepatitis C Elevated ammonia Repeat ammonia in the morning Continue lactulose and rifaximin Blood pressure is stable, we will resume Aldactone and Lasix Acute kidney injury, now resolved Continue with hydration Follow BMP in the morning COPD, stable Tobacco abuse Continue with DuoNeb's as needed Tobacco abuse counseling History of bipolar disorder Anxiety Continue with BuSpar Seizure disorder Continue with Keppra Seizure precautions History hypertension, patient initially was hypotensive. Blood pressure has been trending up -Resume Lopressor 25 mg by mouth twice a day Thrombocytopenia, likely secondary to chronic liver disease Monitor platelets Monitor for bleeding Hypokalemia Replace electrolytes as needed Continue with PPI for GI prophylaxis SCDs for DVT prophylaxis, avoid anticoagulation due to GI bleeding and thrombocytopenia Repeat laboratory workup in the morning Plan of care has been discussed with the patient, her , attending and registered nurse. Further management of the patient will be dependent on the hospital course This patient was seen by myself and Dr. Marquis, this consultation is written on his behalf Problem Qualifiers (1) Cirrhosis of liver: (2) Gall stone: Qualified Code: K80.20 - Calculus of gallbladder without cholecystitis without obstruction (3) Bipolar disorder: Qualified Code: F31.9 - Bipolar affective disorder, remission status unspecified (4) Hypothyroidism: Qualified Code: E03.9 - Hypothyroidism, unspecified type (5) Hepatitis C: Qualified Code: B18.2 - Chronic hepatitis C without hepatic coma (6) Depression: Qualified Code: F32.9 - Depression, unspecified depression type (7) COPD (chronic obstructive pulmonary disease): Qualified Code: J44.9 - Chronic obstructive pulmonary disease, unspecified COPD type (8) Hematemesis: Qualified Code: K92.0 - Hematemesis, presence of nausea not specified (9) Acute renal failure: Qualified Code: N17.9 - Acute renal failure, unspecified acute renal failure type Hafsa Palomares Nov 22, 2016 19:00
[2016-11-22] MEDS: PANTOPRAZOLE SOD 40 MG DELAYED RELEASE TAB PO SCH (20:54)
[2016-11-22] MEDS: METOPROLOL TARTRATE 25 MG TAB PO SCH (21:00)
[2016-11-22] MEDS: ONDANSETRON HCL 4 MG/2 ML VIAL IV PRN (23:00)
[2016-11-22] MEDS: cefTRIAXone INJ 1,000 MG in SODIUM CHLORIDE 0.9% INJ 100 ML IV SCH (23:02)
[2016-11-23] VITALS (21 sets, daily range): BP systolic 133–169; BP diastolic 74–95; PULSE 41–89; RESP 16–20; TEMP 95.2–99.6; O2SAT 92–95
[2016-11-23] MEDS: CHLORHEXIDINE GLUCONATE 2 % 1 PACK (2 CLOTHS) TOP SCH (04:00)
[2016-11-23] MEDS: MORPHINE SULFATE 4 MG/ML INJ IV PRN ×3 (04:27→13:27)
[2016-11-23 05:00] LABS: BASOPHIL % 0.6 % (0.0-2.0); EOSINOPHIL # 0.2 TH/MM3 (0-0.4); EOSINOPHIL % 2.8 % (0.0-4.0); HEMO FLAGS DIFF FINAL; LYMPH % 14.7 % (9.0-44.0); LYMPHOCYTE # 0.8 TH/MM3 (1.0-4.8); MEAN CELL VOLUME 87.2 FL (80.0-100.0); MEAN CORPUSCULAR HEMOGLOBIN 29.3 PG (27.0-34.0); MEAN CORPUSCULAR HGB CONC 33.6 % (32.0-36.0); MONO % 11.2 % (0.0-8.0); NEUT % 70.7 % (16.0-70.0); PLATELET COUNT 105 TH/MM3 (150-450); RED BLOOD COUNT 2.98 MIL/MM3 (4.00-5.30); RED CELL DISTRIBUTION WIDTH 16.3 % (11.6-17.2); WHITE BLOOD COUNT 5.7 TH/MM3 (4.0-11.0)
[2016-11-23 05:06] LABS: ANION GAP 6 MEQ/L (5-15); AST (GOT) 31 U/L (15-37); BICARBONATE 29.7 MEQ/L (21.0-32.0); BLOOD UREA NITROGEN 3 MG/DL (7-18); CHLORIDE 107 MEQ/L (98-107); GLOMERULAR FILTRATION RATE 111 ML/MIN (>89); POTASSIUM 3.7 MEQ/L (3.5-5.1); SODIUM (NA) 143 MEQ/L (136-145)
[2016-11-23 05:09] LABS: ALKALINE PHOSPHATASE 96 U/L (45-117); ALT (GPT) 23 U/L (10-53); TOTAL BILIRUBIN ADULT 1.6 MG/DL (0.2-1.0)
[2016-11-23] MEDS: LEVOTHYROXINE SODIUM 100 MCG TAB PO SCH (06:04)
[2016-11-23] MEDS: RIFAXIMIN 200 MG TAB PO SCH ×3 (06:04→22:14)
[2016-11-23] MEDS: OCTREOTIDE INJ 500 MCG in SODIUM CHLORID 0.9% 500 ML INJ 499.5 ML IV SCH (06:05)
[2016-11-23] MEDS: SODIUM CHLOR 0.9% 1000 ML INJ 1,000 ML IV SCH ×2 (06:06→08:40)
[2016-11-23] MEDS: FOLIC ACID 1 MG TAB PO SCH (08:38)
[2016-11-23] MEDS: PANTOPRAZOLE SOD 40 MG DELAYED RELEASE TAB PO SCH ×2 (08:38→19:33)
[2016-11-23] MEDS: METOPROLOL TARTRATE 25 MG TAB PO SCH ×2 (08:38→19:34)
[2016-11-23] MEDS: levETIRAcetam 500 MG TAB PO SCH ×2 (08:39→19:33)
[2016-11-23] MEDS: MUPIROCIN 2% OINT 1 APPLIC/GM SYR NASAL SCH ×2 (08:39→19:34)
[2016-11-23] MEDS: FUROSEMIDE 40 MG TAB PO SCH (08:39)
[2016-11-23] MEDS: busPIRone HCL 5 MG TAB PO SCH ×2 (08:39→20:19)
[2016-11-23] MEDS: LACTULOSE SYRUP 20 GM/30 ML CUP PO SCH ×2 (08:39→19:33)
[2016-11-23] MEDS: SODIUM CHLORIDE 0.9% FLUSH 10 ML FLUSH SCH ×2 (08:39→19:34)
[2016-11-23] MEDS: SPIRONOLACTONE 50 MG TAB PO SCH (08:39)
[2016-11-23] MEDS: DOCUSATE SODIUM 50 MG/SENNA 8.6 MG TAB PO SCH ×2 (08:40→19:33)
--- NOTE | 2016-11-23 12:48 | HHI.PR ---
Subjective Remarks right upper quadrant pain stable no n/v no hematemesis no bm x 2 days no cp no sob more awake today at bsd Objective Objective Results - Vital Signs Date Time Temp Pulse Resp B/P Pulse Ox O2 Delivery O2 Flow Rate FiO2 11/23/16 12:06 48 11/23/16 11:49 50 11/23/16 11:49 98.0 50 18 144/79 95 11/23/16 10:40 79 11/23/16 09:00 83 11/23/16 08:44 18 11/23/16 08:15 71 11/23/16 08:15 98.4 70 18 147/86 95 11/23/16 06:00 70 11/23/16 05:00 89 11/23/16 04:00 74 11/23/16 03:00 72 11/23/16 03:00 99.6 73 16 136/85 92 11/23/16 02:00 74 11/23/16 01:00 68 11/23/16 00:00 64 11/22/16 23:00 62 11/22/16 23:00 98.9 66 16 153/92 94 11/22/16 22:00 52 11/22/16 21:00 60 11/22/16 20:31 94 Nasal Cannula 3.00 11/22/16 20:00 50 11/22/16 20:00 97.5 53 16 169/85 11/22/16 19:00 50 11/22/16 17:30 67 11/22/16 17:30 82 22 152/91 94 11/22/16 17:28 63 16 148/74 94 11/22/16 17:18 60 16 136/83 96 11/22/16 17:08 98.0 61 16 133/81 95 I/O 11/22/16 11/22/16 11/22/16 11/23/16 11/23/16 11/23/16 07:00 15:00 23:00 07:00 15:00 23:00 Intake Total 775 ml 757 ml 1720 ml Output Total 600 ml 1500 ml Balance 775 ml 157 ml 220 ml Intake Oral 0 ml 480 ml IV Total 775 ml 757 ml 1240 ml Output Urine Total 600 ml 1500 ml # Voids 1 # Bowel Movements 0 2 Result Diagram: 11/23/16 0440 11/23/16 0440 Imaging Last Impressions Abdomen/Pelvis CT 11/20/16 0000 Signed Impressions: Service Date/Time: Sunday, November 20, 2016 22:26 - CONCLUSION: 1. Findings characteristic of cirrhosis including lobular contour to the liver and splenomegaly. No significant varices seen. 2. Bilateral pleural effusions, right greater than left. 3. Gallstone. 4. Moderate amount of free fluid in the pelvis and lower abdomen. Anam Richards MD Chest X-Ray 11/18/16 0000 Signed Impressions: Service Date/Time: October 23:03 - CONCLUSION: Left IJ central venous catheter in place with the tip in the region of the cavoatrial junction. No evidence of pneumothorax. Grant Mackey MD Other Results Laboratory Tests Test 11/23/16 04:40 White Blood Count 5.7 Red Blood Count 2.98 Hemoglobin 8.7 Hematocrit 26.0 Mean Corpuscular Volume 87.2 Mean Corpuscular Hemoglobin 29.3 Mean Corpuscular Hemoglobin 33.6 Concent Red Cell Distribution Width 16.3 Platelet Count 105 Mean Platelet Volume 8.9 Neutrophils (%) (Auto) 70.7 Lymphocytes (%) (Auto) 14.7 Monocytes (%) (Auto) 11.2 Eosinophils (%) (Auto) 2.8 Basophils (%) (Auto) 0.6 Neutrophils # (Auto) 4.0 Lymphocytes # (Auto) 0.8 Monocytes # (Auto) 0.6 Eosinophils # (Auto) 0.2 Basophils # (Auto) 0.0 CBC Comment DIFF FINAL Differential Comment Sodium Level 143 Potassium Level 3.7 Chloride Level 107 Carbon Dioxide Level 29.7 Anion Gap 6 Blood Urea Nitrogen 3 Creatinine 0.58 Estimat Glomerular Filtration 111 Rate Random Glucose 82 Calcium Level 7.7 Total Bilirubin 1.6 Aspartate Amino Transf 31 (AST/SGOT) Alanine Aminotransferase 23 (ALT/SGPT) Alkaline Phosphatase 96 Ammonia 46 Total Protein 6.5 Albumin 2.9 Date/Time Procedure Status Source Growth 11/18/16 22:55 Aerobic Blood Culture - Preliminary Resulted Blood Peripheral Corynebacterium Sp 11/18/16 22:55 Anaerobic Blood Culture - Final Resulted Blood Peripheral NO GROWTH IN 5 DAYS 11/18/16 22:50 Aerobic Blood Culture - Final Complete Blood Peripheral NO GROWTH IN 5 DAYS 11/18/16 22:50 Anaerobic Blood Culture - Final Complete Blood Peripheral NO GROWTH IN 5 DAYS ROS General: No: Fatigue, Weakness HEENT: No: Sore Throat, Dysphagia Cardiac: No: Chest Pain, Edema, Palpitations Pulmonary: No: Cough, SOB, Wheezing GI: Abdominal Pain /[employer]: No: Dysuria, Urgency Neuro/MS: No: Lightheaded, Confusion Psych: No: Anxiety, Depression Skin: No: Itching, Rash Physical Exam Physical Exam GENERAL: This is a well-nourished, well-developed patient, appears older than stated age. SKIN: No rashes, ecchymoses or lesions. Cool and dry. HEAD: Atraumatic. Normocephalic. No temporal or scalp tenderness. EYES: Pupils equal round and reactive. Extraocular motions intact. No scleral icterus. No injection or drainage. ENT: Nose without bleeding, purulent drainage or septal hematoma. Throat without erythema, tonsillar hypertrophy or exudate. Uvula midline. Airway patent. NECK: Trachea midline. No JVD or lymphadenopathy. Supple, nontender, no meningeal signs. CARDIOVASCULAR: Regular rate and rhythm without murmurs, gallops, or rubs. RESPIRATORY: Diminished poor inspiratory effort. GASTROINTESTINAL: Abdomen soft, mildly tender RUQ, slightly distended. Bowel sounds hypoactive x 4. No hepato-splenomegaly, or palpable masses. No guarding. MUSCULOSKELETAL: Extremities without clubbing, cyanosis, or edema. No joint tenderness, effusion, or edema noted. No calf tenderness. Negative Homans sign bilaterally. NEUROLOGICAL:Awake, alert and oriented x 3. More awake, no focal deficits. Urinary Catheter: No Assessment to: Continue Vascular Central Line Catheter: Yes Assessment to: Remove A/P Diagnosis: (1) Acute blood loss anemia (2) UGIB (upper gastrointestinal bleed) (3) Cirrhosis of liver (4) Gall stone (5) Hypovolemic shock (6) Bipolar disorder (7) Hypothyroidism (8) Hepatitis C (9) Depression (10) Alcohol abuse (11) COPD (chronic obstructive pulmonary disease) (12) Hematemesis (13) History of bipolar disorder (14) Hypokalemia (15) Acute renal failure (16) Seizure disorder Assessment and Plan 46-year-old female with history of esophageal varices, GI bleeding, cirrhosis, alcohol abuse. Presented with hematemesis, was found in hypovolemic shock and blood loss anemia. Received 2 units of packed cells and was fluid resuscitated. Was initially admitted to intensive care unit. Status post EGD, findings of gastritis and esophagitis, no active bleeding. -Continue to monitor H&H, has stabilized. No further hematemesis Continue with PPI -adv to heart healthy diet Chronic right upper quadrant pain, has known history of gallstones. Patient is a high surgical risk, was recently evaluated by general surgery Continue to monitor and manage pain Liver cirrhosis Alcohol abuse. Hepatitis C Elevated ammonia -ammonia trending down Continue lactulose and rifaximin continue Aldactone and Lasix Acute kidney injury, now resolved -resolved. COPD, stable Tobacco abuse Continue with DuoNeb's as needed Tobacco abuse counseling History of bipolar disorder Anxiety Continue with BuSpar Seizure disorder Continue with Keppra Seizure precautions History hypertension, patient initially was hypotensive. Blood pressure has been trending up Dec. Lopressor 12.5 mg by mouth twice a day, noted with HR 40s Thrombocytopenia, likely secondary to chronic liver disease Monitor platelets Monitor for bleeding Hypokalemia-stable Replace electrolytes as needed Continue with PPI for GI prophylaxis SCDs for DVT prophylaxis, avoid anticoagulation due to GI bleeding and thrombocytopenia HH in am poss dc in am if okay with GI and can tolerate diet D/W RN D/W Dr. Marquis D/W pt and . This patient was seen by myself and Dr. Marquis, this note is written on his behalf Problem Qualifiers (1) Cirrhosis of liver: (2) Gall stone: Qualified Code: K80.20 - Calculus of gallbladder without cholecystitis without obstruction (3) Bipolar disorder: Qualified Code: F31.9 - Bipolar affective disorder, remission status unspecified (4) Hypothyroidism: Qualified Code: E03.9 - Hypothyroidism, unspecified type (5) Hepatitis C: Qualified Code: B18.2 - Chronic hepatitis C without hepatic coma (6) Depression: Qualified Code: F32.9 - Depression, unspecified depression type (7) COPD (chronic obstructive pulmonary disease): Qualified Code: J44.9 - Chronic obstructive pulmonary disease, unspecified COPD type (8) Hematemesis: Qualified Code: K92.0 - Hematemesis, presence of nausea not specified (9) Acute renal failure: Qualified Code: N17.9 - Acute renal failure, unspecified acute renal failure type Hafsa Palomares Nov 23, 2016 12:47
--- NOTE | 2016-11-23 15:25 | HHI.GIFU ---
Subjective Remarks Pt sitting up in bed, getting ready to order meal. at bedside. C/o that her epigastric pain is not better. (Lorena Gibson) Objective Vitals I&O Vital Signs Date Time Temp Pulse Resp B/P Pulse Ox O2 Delivery O2 Flow Rate FiO2 11/23/16 14:01 46 11/23/16 13:36 16 11/23/16 13:23 44 11/23/16 12:06 48 11/23/16 11:49 50 11/23/16 11:49 98.0 50 18 144/79 95 11/23/16 10:40 79 11/23/16 09:00 83 11/23/16 08:15 71 11/23/16 08:15 98.4 70 18 147/86 95 11/23/16 06:00 70 11/23/16 05:00 89 11/23/16 04:00 74 11/23/16 03:00 72 11/23/16 03:00 99.6 73 16 136/85 92 11/23/16 02:00 74 11/23/16 01:00 68 11/23/16 00:00 64 11/22/16 23:00 62 11/22/16 23:00 98.9 66 16 153/92 94 11/22/16 22:00 52 11/22/16 21:00 60 11/22/16 20:31 94 Nasal Cannula 3.00 11/22/16 20:00 50 11/22/16 20:00 97.5 53 16 169/85 11/22/16 19:00 50 11/22/16 17:30 67 11/22/16 17:30 82 22 152/91 94 11/22/16 17:28 63 16 148/74 94 11/22/16 17:18 60 16 136/83 96 11/22/16 17:08 98.0 61 16 133/81 95 I/O 11/22/16 11/22/16 11/22/16 11/23/16 11/23/16 11/23/16 07:00 15:00 23:00 07:00 15:00 23:00 Intake Total 775 ml 757 ml 1720 ml Output Total 600 ml 1500 ml Balance 775 ml 157 ml 220 ml Intake Oral 0 ml 480 ml IV Total 775 ml 757 ml 1240 ml Output Urine Total 600 ml 1500 ml # Voids 1 # Bowel Movements 0 2 Laboratory Laboratory Tests Test 11/23/16 04:40 White Blood Count 5.7 Red Blood Count 2.98 Hemoglobin 8.7 Hematocrit 26.0 Mean Corpuscular Volume 87.2 Mean Corpuscular Hemoglobin 29.3 Mean Corpuscular Hemoglobin 33.6 Concent Red Cell Distribution Width 16.3 Platelet Count 105 Mean Platelet Volume 8.9 Neutrophils (%) (Auto) 70.7 Lymphocytes (%) (Auto) 14.7 Monocytes (%) (Auto) 11.2 Eosinophils (%) (Auto) 2.8 Basophils (%) (Auto) 0.6 Neutrophils # (Auto) 4.0 Lymphocytes # (Auto) 0.8 Monocytes # (Auto) 0.6 Eosinophils # (Auto) 0.2 Basophils # (Auto) 0.0 CBC Comment DIFF FINAL Differential Comment Sodium Level 143 Potassium Level 3.7 Chloride Level 107 Carbon Dioxide Level 29.7 Anion Gap 6 Blood Urea Nitrogen 3 Creatinine 0.58 Estimat Glomerular Filtration 111 Rate Random Glucose 82 Calcium Level 7.7 Total Bilirubin 1.6 Aspartate Amino Transf 31 (AST/SGOT) Alanine Aminotransferase 23 (ALT/SGPT) Alkaline Phosphatase 96 Ammonia 46 Total Protein 6.5 Albumin 2.9 Date/Time Procedure Status Source Growth 11/18/16 22:55 Aerobic Blood Culture - Final Complete Blood Peripheral Cornyebacterium Not Jk 11/18/16 22:55 Anaerobic Blood Culture - Final Complete Blood Peripheral NO GROWTH IN 5 DAYS Imaging Last Impressions Abdomen/Pelvis CT 11/20/16 0000 Signed Impressions: Service Date/Time: Sunday, November 20, 2016 22:26 - CONCLUSION: 1. Findings characteristic of cirrhosis including lobular contour to the liver and splenomegaly. No significant varices seen. 2. Bilateral pleural effusions, right greater than left. 3. Gallstone. 4. Moderate amount of free fluid in the pelvis and lower abdomen. Anam Richards MD Chest X-Ray 11/18/16 0000 Signed Impressions: Service Date/Time: October 23:03 - CONCLUSION: Left IJ central venous catheter in place with the tip in the region of the cavoatrial junction. No evidence of pneumothorax. Grant Mackey MD Physical Exam HEENT: PERRLA; normocephalic; atraumatic; no jaundice. CHEST: CTA CARDIAC: RRR, with no murmur gallop or rubs. ABDOMEN: distended, semifirm, dull,epigastric TTP; hepatosplenomegaly; bowel sounds x four quadrants. EXTREMITIES: No clubbing, cyanosis, or edema. SKIN: Normal; no rash; no jaundice. NON DESTRUCTIVE EVALUATION MANAGER: lethargic (PaigeLorenatiesha WILKINSON) Assessment and Plan Plan ASSESSMENT - Upper GI bleeding with hematemesis. The patient reports that she began having nausea and vomiting consisting of red blood started on the 11/18 at 3 am and had multiple episodes. Reports episode of hematemesis last night. States she has been sober for 90 days, but had a drink the day prior to admission. s/p EGD 11-22-16--> gastritis, esophagitis, hiatal hernia. She had a recent hospitalization and under went EGD/colonoscopy with Dr. Chavez EGD on (11/04/16) ---> minimal varices present grade 0-1, mild gastritis, normal duodenum, BX. benign. Colonoscopy on (11/05/16) was suboptimal with copious washing and suctioning a god examination was obtained, no potentially bleeding sites seen, normal colonoscopy through out. CT on () ---> interval development of tiny bilateral pleural effusion and slight increase in the ascites since the prior exam. During last admission, was evaluated by GS for gallstones, but was deemed not candidate for surgery. She denies melena or hematochezia. PPI, octreotide. - N/V, abdominal pain. CT on (11/04/16) ---> interval development of tiny bilateral pleural effusion and slight increase in the ascites since the prior exam. During last admission, was evaluated by GS for gallstones, but was deemed not candidate for surgery. Abdomen/Pelvis CT 11/20/16--1. Findings characteristic of cirrhosis including lobular contour to the liver and splenomegaly. No significant varices seen. 2. Bilateral pleural effusions, right greater than left. 3. Gallstone. 4. Moderate amount of free fluid in the pelvis and lower abdomen. - Liver cirrhosis secondary to chronic hepatitis C and hx of alcohol abuse. Sober for 90 days, but had a drink the day prior to admission - Thrombocytopenia- PLT 105 - High ammonia- 46 rifaximin, lactulose - Gallstones- evaluated by GS at previous admission, not a candidate - HCV, chronic. Tx naive. Not a candidate for tx until she has been off ETOH abuse x 6 months. PLAN: - heart heatlhy diet - cont protonix - Monitor HH, transfuse as needed. - Notify GI for active bleed - Cont. Xifaxan - Cont. Lactulose - Supportive care Patient seen and examined by and myself and this note is written on her behalf (Lorena Gibson) Physician Comments seen, examined agree with above hida scan in am bentyl 10 mg po tid elevated alejandro in the past-we will repeat along with ama,asma vaccination for hep a and b op (Bianca Adkisn MD) Lorena Gibson Nov 23, 2016 15:25 Bianca Adkins MD Nov 23, 2016 16:30
[2016-11-23] MEDS: DICYCLOMINE HCL 10 MG CAP PO SCH (17:22)
[2016-11-23] MEDS ORDERED: DICYCLOMINE HCL 20 MG TAB PO SCH (18:00)
[2016-11-23] MEDS ORDERED: PILL SPLITTER OTHER PRN (21:00)
[2016-11-23 21:57] LABS: TRANSFERRIN IRON PROFILE 168 MG/DL (200-360)
[2016-11-23 22:00] LABS: FERRITIN 76 NG/ML (8-252)
[2016-11-23] MEDS: ACETAMINOPHEN/HYDROcodone 325 MG/5 MG TAB PO PRN (22:14)
[2016-11-24] VITALS: BP 133/76; PULSE 62; RESP 20; TEMP 97.8; O2SAT 94
[2016-11-24] MEDS: LORazepam 2 MG/ML VIAL IV PRN (00:14)
[2016-11-24 04:00] VITALS: BP 184/85; PULSE 56; RESP 20; TEMP 96.6; O2SAT 95
[2016-11-24] MEDS: CHLORHEXIDINE GLUCONATE 2 % 1 PACK (2 CLOTHS) TOP SCH (04:00)
[2016-11-24] MEDS: LEVOTHYROXINE SODIUM 100 MCG TAB PO SCH (05:01)
[2016-11-24] MEDS: RIFAXIMIN 200 MG TAB PO SCH ×2 (05:01→13:53)
[2016-11-24] MEDS: ACETAMINOPHEN/HYDROcodone 325 MG/5 MG TAB PO PRN ×3 (05:01→13:53)
[2016-11-24 05:39] LABS: HEMATOCRIT 29.4 % (35.0-46.0); REVIEW FLAG FINAL
[2016-11-24 08:00] VITALS: BP 180/74; PULSE 43; RESP 16; TEMP 96.8; O2SAT 91
[2016-11-24 08:13] VITALS: PULSE 43
[2016-11-24] MEDS: SODIUM CHLORIDE 0.9% FLUSH 10 ML FLUSH SCH (09:00)
[2016-11-24] MEDS: METOPROLOL TARTRATE 25 MG TAB PO SCH (09:00)
--- NOTE | 2016-11-24 09:59 | RADRPT ---
EXAM DATE/TIME: 11/24/2016 08:20 [facility] COMPARISON: No previous studies available for comparison. INDICATIONS : Right upper quadrant pain. DOSE: 4.2 mCi Tc99m Mebrofenin IV MEDICAL HISTORY : Cirrhosis. Chronic obstructive pulmonary disease. Hepatitis C. Seizures. SURGICAL HISTORY : Tubal ligation. ENCOUNTER: Initial ACUITY: 1 day PAIN SCALE: 2/10 LOCATION: Right upper quadrant TECHNIQUE: Following the intravenous administration of radiotracer, dynamic sequential images were performed wit h continuous acquisition. FINDINGS: HEPATIC KINETICS: There is prompt uptake of radiotracer in the liver. No focal defects are seen. There is normal rate of washout from the hepatic parenchyma. BILIARY CLEARANCE: Activity is first seen in the extrahepatic biliary system at 10 minutes. There is normal excretion i nto the small bowel. GALLBLADDER: Activity is first seen in the gallbladder at 10 minutes. Common bile duct kinetics are normal and th ere is no evidence of biliary obstruction. BILIARY ENTRIC REFLUX: None observed. CONCLUSION: Negative for cystic duct or common duct obstruction. Iban Faria MD FACR on November 24, 2016 at 9:56 Board Certified Radiologist. This report was verified electronically.
[2016-11-24] MEDS: busPIRone HCL 5 MG TAB PO SCH (10:00)
[2016-11-24] MEDS: LACTULOSE SYRUP 20 GM/30 ML CUP PO SCH (10:00)
[2016-11-24] MEDS: levETIRAcetam 500 MG TAB PO SCH (10:00)
[2016-11-24] MEDS: SPIRONOLACTONE 50 MG TAB PO SCH (10:00)
[2016-11-24] MEDS: DOCUSATE SODIUM 50 MG/SENNA 8.6 MG TAB PO SCH (10:00)
[2016-11-24] MEDS: PANTOPRAZOLE SOD 40 MG DELAYED RELEASE TAB PO SCH (10:00)
[2016-11-24] MEDS: FUROSEMIDE 40 MG TAB PO SCH (10:01)
[2016-11-24] MEDS: DICYCLOMINE HCL 10 MG CAP PO SCH ×2 (10:01→13:53)
[2016-11-24] MEDS: FOLIC ACID 1 MG TAB PO SCH (10:01)
--- NOTE | 2016-11-24 11:55 | HHI.GIFU ---
Subjective Remarks Sitting up in bed. States that she continues to have right upper quadrant pain and discomfort at the central line site. She reports that the central line is bothering her every time she turns her neck and would like this removed. She tolerated her breakfast, but states she continues to have constant RUQ pain. There is no bleeding. (Lori Man) Objective Vitals I&O Vital Signs Date Time Temp Pulse Resp B/P Pulse Ox O2 Delivery O2 Flow Rate FiO2 11/24/16 08:13 43 11/24/16 08:00 96.8 43 16 180/74 91 11/24/16 06:01 18 11/24/16 04:00 96.6 56 20 184/85 95 11/24/16 00:00 97.8 62 20 133/76 94 11/23/16 20:31 93 21 11/23/16 20:00 96.3 56 20 153/74 94 11/23/16 18:10 95.2 48 16 133/74 94 11/23/16 17:02 43 11/23/16 16:49 95 Nasal Cannula 2.00 11/23/16 16:15 52 11/23/16 15:21 41 11/23/16 15:21 98.2 44 18 169/95 93 11/23/16 14:01 46 11/23/16 13:36 16 11/23/16 13:23 44 11/23/16 12:06 48 11/23/16 11:49 50 11/23/16 11:49 98.0 50 18 144/79 95 I/O 11/23/16 11/23/16 11/23/16 11/24/16 11/24/16 11/24/16 06:59 14:59 22:59 06:59 14:59 22:59 Intake Total 1720 ml 1746 ml 320 ml Output Total 1500 ml 2730 ml Balance 220 ml -984 ml 320 ml Intake Oral 480 ml 1000 ml 320 ml IV Total 1240 ml 746 ml Output Urine Total 1500 ml 2730 ml # Voids 2 4 # Bowel Movements 0 1 Laboratory Laboratory Tests Test 11/24/16 05:10 Hemoglobin 9.8 Hematocrit 29.4 Imaging Last Impressions Hepatobiliary Scan Nuclear Medicine 11/24/16 0000 Signed Impressions: Service Date/Time: Thursday, November 24, 2016 08:20 - CONCLUSION: Negative for cystic duct or common duct obstruction. Iban Faria MD FACR Abdomen/Pelvis CT 11/20/16 0000 Signed Impressions: Service Date/Time: Sunday, November 20, 2016 22:26 - CONCLUSION: 1. Findings characteristic of cirrhosis including lobular contour to the liver and splenomegaly. No significant varices seen. 2. Bilateral pleural effusions, right greater than left. 3. Gallstone. 4. Moderate amount of free fluid in the pelvis and lower abdomen. Anam Richards MD Chest X-Ray 11/18/16 0000 Signed Impressions: Service Date/Time: October 23:03 - CONCLUSION: Left IJ central venous catheter in place with the tip in the region of the cavoatrial junction. No evidence of pneumothorax. Grant Mackey MD Physical Exam HEENT: Normocephalic; atraumatic; no jaundice. CHEST: CTA CARDIAC: RRR, with no murmur gallop or rubs. ABDOMEN: Abdomen soft, mildly bloated, RUQ tenderness; hepatosplenomegaly; bowel sounds x four quadrants. EXTREMITIES: No clubbing, cyanosis, or edema. SKIN: Normal; no rash; no jaundice. MASTER PLANNER: Alert and oriented (Lori Man) Assessment and Plan Plan ASSESSMENT - Upper GI bleeding with hematemesis. S/P recent EGD/colonoscopy with Dr. Chavez EGD on (11/04/16) ---> minimal varices present grade 0-1, mild gastritis, normal duodenum, benign pathology. Colonoscopy on (11/05/16) was suboptimal with copious washing and suctioning a god examination was obtained, no potentially bleeding sites seen, normal colonoscopy through out. CT on (11/04/16) ---> interval development of tiny bilateral pleural effusion and slight increase in the ascites since the prior exam. During last admission , was evaluated by GS for gallstones, but was deemed not candidate for surgery. S/P Rpt. EGD (11/23/16)-----> 1. Gastritis antrum-biopsy esophagitis dital esophagus -biopsy 2. Retroflexed views revealed a hiatal hernia. No further active bleeding. Tolerating diet. HH 9.8/29.4. - Anemia secondary to blood loss. S/P 4 units PRBC. 9.8/29.4. - N/V, abdominal pain. CT on (11/04/16) ---> interval development of tiny bilateral pleural effusion and slight increase in the ascites since the prior exam. During last admission, was evaluated by GS for gallstones, but was deemed not candidate for surgery. Abdomen/Pelvis CT 11/20/16--1. Findings characteristic of cirrhosis including lobular contour to the liver and splenomegaly. No significant varices seen. 2. Bilateral pleural effusions, right greater than left. 3. Gallstone. 4. Moderate amount of free fluid in the pelvis and lower abdomen. HIDA (11/24/16)-----> Negative for cystic duct or common duct obstruction. - Liver cirrhosis secondary to chronic hepatitis C and hx of alcohol abuse. Sober for 90 days, but had a drink the day prior to admission - Thrombocytopenia- PLT 105 - High ammonia- 46 Xifaxan, Lactulose - Gallstones. S/P previous GS evaluation, determined not to be a candidate - HCV, chronic. Tx naive. Not a candidate for tx until she has been off ETOH abuse x 6 months. PLAN: - Heart healthy diet - Cont protonix - Cont. Xifaxan - Cont. Lactulose- Monitor HH - Transfuse as needed. - Notify GI for active bleed - FU BARON 2 weeks - Patient seen and examined by and myself and this note is written on her behalf (Lori Man) Lori Man Nov 24, 2016 11:55 Bianca Adkins MD Nov 24, 2016 17:04
[2016-11-24 12:00] VITALS: BP 118/59; PULSE 44; RESP 16; TEMP 97.1; O2SAT 95
--- NOTE | 2016-11-24 12:36 | HHI.PR ---
Subjective Remarks Patient is feeling lot better right upper quadrant pain stable no n/v no hematemesis no cp no sob more awake today at bsd Objective Objective Results - Vital Signs Date Time Temp Pulse Resp B/P Pulse Ox O2 Delivery O2 Flow Rate FiO2 11/24/16 08:13 43 11/24/16 08:00 96.8 43 16 180/74 91 11/24/16 06:01 18 11/24/16 04:00 96.6 56 20 184/85 95 11/24/16 00:00 97.8 62 20 133/76 94 11/23/16 20:31 93 21 11/23/16 20:00 96.3 56 20 153/74 94 11/23/16 18:10 95.2 48 16 133/74 94 11/23/16 17:02 43 11/23/16 16:49 95 Nasal Cannula 2.00 11/23/16 16:15 52 11/23/16 15:21 41 11/23/16 15:21 98.2 44 18 169/95 93 11/23/16 14:01 46 11/23/16 13:36 16 11/23/16 13:23 44 I/O 11/23/16 11/23/16 11/23/16 11/24/16 11/24/16 11/24/16 06:59 14:59 22:59 06:59 14:59 22:59 Intake Total 1720 ml 1746 ml 320 ml Output Total 1500 ml 2730 ml Balance 220 ml -984 ml 320 ml Intake Oral 480 ml 1000 ml 320 ml IV Total 1240 ml 746 ml Output Urine Total 1500 ml 2730 ml # Voids 2 4 # Bowel Movements 0 1 Result Diagram: 11/24/16 0510 11/23/16 0440 Imaging Last Impressions Abdomen/Pelvis CT 11/20/16 0000 Signed Impressions: Service Date/Time: Sunday, November 20, 2016 22:26 - CONCLUSION: 1. Findings characteristic of cirrhosis including lobular contour to the liver and splenomegaly. No significant varices seen. 2. Bilateral pleural effusions, right greater than left. 3. Gallstone. 4. Moderate amount of free fluid in the pelvis and lower abdomen. Anam Richards MD Chest X-Ray 11/18/16 0000 Signed Impressions: Service Date/Time: October 23:03 - CONCLUSION: Left IJ central venous catheter in place with the tip in the region of the cavoatrial junction. No evidence of pneumothorax. 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 SKIN: Cool and dry. HEAD: Atraumatic. Normocephalic. No temporal or scalp tenderness. EYES: Pupils equal round and reactive. Extraocular motions intact. No scleral icterus. No injection or drainage. ENT:. Airway patent. NECK: Trachea midline. No JVD no meningeal signs. CARDIOVASCULAR: Regular rate and rhythm without murmurs, gallops, or rubs. RESPIRATORY: Diminished poor inspiratory effort. GASTROINTESTINAL: Abdomen soft, nontender, slightly distended. Bowel sounds active x 4. No hepato-splenomegaly, or palpable masses. No guarding. MUSCULOSKELETAL: Extremities without clubbing, cyanosis, or edema. No joint tenderness, effusion, or edema noted. No calf tenderness. Negative Homans sign bilaterally. NEUROLOGICAL:Awake, alert and oriented x 3. More awake, no focal deficits. Urinary Catheter: No A/P Assessment and Plan (1) Acute blood loss anemia (2) UGIB (upper gastrointestinal bleed) (3) Cirrhosis of liver (4) Gall stone (5) Hypovolemic shock (6) Bipolar disorder (7) Hypothyroidism (8) Hepatitis C (9) Depression (10) Alcohol abuse (11) COPD (chronic obstructive pulmonary disease) (12) Hematemesis (13) History of bipolar disorder (14) Hypokalemia (15) Acute renal failure (16) Seizure disorder Plan 46-year-old female with history of esophageal varices, GI bleeding, cirrhosis, alcohol abuse. Presented with hematemesis, was found in hypovolemic shock and blood loss anemia. Received 2 units of packed cells and was fluid resuscitated. Was initially admitted to intensive care unit. Status post EGD, findings of gastritis and esophagitis, no active bleeding. -Continue to monitor H&H, has stabilized. No further hematemesis Continue with PPI -adv to heart healthy diet patient is tolerating well As per GI patient can be discharged and follow-up as outpatient in 2 weeks Chronic right upper quadrant pain, better has known history of gallstones. Patient is a high surgical risk, was recently evaluated by general surgery Liver cirrhosis Alcohol abuse. Hepatitis C Elevated ammonia -ammonia trending down Continue lactulose and rifaximin continue Aldactone and Lasix Acute kidney injury, now resolved -resolved. COPD, stable Tobacco abuse Continue with DuoNeb's as needed Tobacco abuse counseling History of bipolar disorder Anxiety Continue with BuSpar Seizure disorder Continue with Keppra Seizure precautions History hypertension, patient initially was hypotensive. Blood pressure has been trending up Dec. Lopressor 12.5 mg by mouth twice a day, noted with HR 40s Thrombocytopenia, likely secondary to chronic liver disease platelets, stable Monitor for bleeding, no more bleeding stable H&H Better Replace electrolytes as needed Continue with PPI for GI prophylaxis SCDs for DVT prophylaxis, avoid anticoagulation due to GI bleeding and thrombocytopenia dc home today to follow GI and primary care as outpatient. Patient is no longer following Tonia Aquino MD Nov 24, 2016 12:36
[2016-11-24] MEDS ORDERED: METO25TA3 PO (12:39)
[2016-11-24] MEDS ORDERED: XIFA200T4 PO (12:39)
[2016-11-24] MEDS ORDERED: DICY10 PO (12:39)
[2016-11-24] MEDS ORDERED: PANT40TA3 PO (12:39)
[2016-11-24] MEDS ORDERED: SENN8.6T15 PO (12:39)
--- NOTE | 2016-11-24 12:44 | HHI.DS ---
Discharge Summary Admission Date Nov 18, 2016 at 21:30 Admitting Diagnosis upper GI bleed, hypotension (1) Acute blood loss anemia Diagnosis: Principal (2) UGIB (upper gastrointestinal bleed) Diagnosis: Principal (3) Cirrhosis of liver Diagnosis: Principal (4) Gall stone Diagnosis: Principal (5) Hypovolemic shock Diagnosis: Principal (6) Bipolar disorder Diagnosis: Principal (7) Hypothyroidism Diagnosis: Principal (8) Hepatitis C Diagnosis: Principal (9) Depression Diagnosis: Principal (10) Alcohol abuse Diagnosis: Principal (11) COPD (chronic obstructive pulmonary disease) Diagnosis: Principal (12) Hematemesis Diagnosis: Principal (13) History of bipolar disorder Diagnosis: Principal (14) Hypokalemia Diagnosis: Principal (15) Acute renal failure (16) Seizure disorder Diagnosis: Principal Brief History This a 46-year-old white female with significant past medical history of GI bleed secondary to esophageal varices, liver cirrhosis, alcohol abuse, tobacco abuse, COPD, hepatitis C, seizure disorder. Patient presented to the emergency room on 11/18/16 with complaint of chronic right upper quadrant pain, has known history of gallstones are inoperable as she is a high surgical risk. She also endorsed she started vomiting blood it was unclear how many times. During evaluation in the emergency room, her blood pressure dropped to 60s, she was fluid resuscitated. Her initial H&H was initially 8 then dropped to 6.8 and hematocrit of 20.3. She was admitted to the intensive care unit under broadcast operations technician services. She was put on Protonix and octreotide infusions, received 2 units of packed cells. Gastroenterology was consulted for evaluation. patient underwent endoscopy procedure with findings of gastritis in the antrum, distal esophagitis. No active bleeding was noted, biopsies were taken. Her H&H has continued to improve, 9.6 and 29.1. The hasn't been any hematemesis. She continues to complain of right upper quadrant pain. During a recent admission in early October, she was evaluated by Dr. Fox and was deemed a high surgical risk for surgery due to her comorbidities. Patient indicates that she's been trying to quit drinking, she is only drinking a couple of beers every 2-3 days. Patient was monitored in house her H&H is stable her abdominal pain is chronic and better now. Has patient is overall a stable mass projecting the discharge plan to discharge her home to be followed by her primary care doctor and GI as outpatient patient understood very well. Patient also advised to stop drinking and he stopped smoking. Counseling given patient understood very well. Vision in the discharge in a stable and fair condition. CBC/BMP: 11/24/16 0510 11/23/16 0440 Significant Findings Laboratory Tests Test 11/21/16 11/22/16 11/23/16 11/24/16 20:45 02:00 04:40 05:10 Hemoglobin 9.6 GM/DL 9.6 GM/DL 8.7 GM/DL 9.8 GM/DL (11.6-15.3) (11.6-15.3) (11.6-15.3) (11.6-15.3) Hematocrit 29.0 % 29.1 % 26.0 % 29.4 % (35.0-46.0) (35.0-46.0) (35.0-46.0) (35.0-46.0) Red Blood Count 3.32 MIL/MM3 2.98 MIL/MM3 (4.00-5.30) (4.00-5.30) Platelet Count 105 TH/MM3 105 TH/MM3 (150-450) (150-450) Neutrophils (%) (Auto) 71.9 % 70.7 % (16.0-70.0) (16.0-70.0) Monocytes (%) (Auto) 9.2 % (0.0-8.0) 11.2 % (0.0-8.0) Lymphocytes # (Auto) 0.7 TH/MM3 0.8 TH/MM3 (1.0-4.8) (1.0-4.8) Prothrombin Time 12.7 SEC (9.8-11.6) Potassium Level 3.4 MEQ/L (3.5-5.1) Chloride Level 109 MEQ/L (98-107) Anion Gap 4 MEQ/L (5-15) Blood Urea Nitrogen 6 MG/DL (7-18) 3 MG/DL (7-18) Calcium Level 7.7 MG/DL 7.7 MG/DL (8.5-10.1) (8.5-10.1) Total Bilirubin 1.2 MG/DL 1.6 MG/DL (0.2-1.0) (0.2-1.0) Aspartate Amino Transf 38 U/L (15-37) (AST/SGOT) Albumin 3.0 GM/DL 2.9 GM/DL (3.4-5.0) (3.4-5.0) Iron Level 23 MCG/DL (50-170) Total Iron Binding Capacity 235 MCG/DL (250-450) Percent Iron Saturation 9.8 % (20-50) Ammonia 46 MCMOL/L (11-32) Pt Condition on Discharge: Fair Discharge Disposition: Discharge Home Discharge Instructions DIET: Follow Instructions for: Heart Healthy Diet Activities you can perform: Weight Bearing as Pia Follow up Referrals: Gastroenterology - 2 Weeks @ [facility] New Medications: Dicyclomine (Bentyl) 10 Mg Cap 10 MG PO TID abdominal discomfort #93 CAP Metoprolol Tartrate (Metoprolol Tartrate) 25 Mg Tab 12.5 MG PO BID hypertension #60 TAB Pantoprazole (Pantoprazole) 40 Mg Tab 40 MG PO Q12HR gastritis #60 TAB Rifaximin (Xifaxan) 200 Mg Tab 400 MG PO Q8HR hepatitis C #93 TAB Sennosides (Senna Lax) 8.6 Mg Tab 17.2 MG PO Q12H PRN MODERATE - SEVERE CONSTIPATION #60 TAB Continued Medications: Buspirone (Buspirone) 15 Mg Tab 15 MG PO BID Anxiety Ref 0 TAB Folic Acid (Folic Acid) 800 Mcg Cap 800 MCG PO DAILY CAP Furosemide (Furosemide) Unknown Strength Tab 40 MG PO DAILY #30 Ref 0 TAB Lactulose Liq (Lactulose Liq) 10 Gm/15 Ml Soln 15 ML PO BID Ref 0 ML Levetiracetam (Keppra) 500 Mg Tab 500 MG PO BID Control Seizures #60 Ref 0 TAB Levothyroxine (Levothyroxine) Unknown Strength Tab 1 TAB PO DAILY Thyroid #30 Ref 0 TAB Ondansetron (Zofran) Unknown Strength Tab 1 TAB PO Q6HR PRN NAUSEA OR VOMITING Ref 0 TAB Spironolactone (Spironolactone) 50 Mg Tab 50 MG PO DAILY #30 Ref 0 TAB Tizanidine (Tizanidine) 4 Mg Tab 4 MG PO TID Muscle Spasm Ref 0 TAB Discontinued Medications: Metoprolol Tartrate (Metoprolol Tartrate) 25 Mg Tab 25 MG PO BID Tachycardia. #60 TAB Tonia Marquis MD Nov 24, 2016 12:44
[2016-11-26 03:52] LABS: ACTIN AB IGG 31 U (()); C3 SERUM 114 mg/dL (()); C4 SERUM 15 mg/dL (ADULTS: 16-47); IGA SERUM 278 mg/dL (81-463); RHEUMATOID FACTOR 67 IU/mL (<14); TISSUE TRANSGLUTAMINASE AB IGG ND U/mL (())
== END 2016-11-24 17:14 | disposition home or self-care (01) | DRG 377 ==
LOC: NEPE 17:23 → NEDA 21:30 → HIME 23:25 → HCIS 11-22 17:35 → N07B 11-23 17:49
PROVIDERS: ADMIT Specialist; ATTEND Specialist
PROC: 02HV33Z Insertion of Infusion Device into Superior Vena Cava, Percutaneous Approach (ICD-10-PCS; 2016-11-18)
PROC: B544ZZA Ultrasonography of Left Jugular Veins, Guidance (ICD-10-PCS; 2016-11-18)
PROC: 30243N1 Transfusion of Nonautologous Red Blood Cells into Central Vein, Percutaneous Approach (ICD-10-PCS; principal; 2016-11-19)
PROC: 0DB38ZX Excision of Lower Esophagus, Via Natural or Artificial Opening Endoscopic, Diagnostic (ICD-10-PCS; 2016-11-22)
PROC: 0DB68ZX Excision of Stomach, Via Natural or Artificial Opening Endoscopic, Diagnostic (ICD-10-PCS; 2016-11-22)
DX: K29.71 Gastritis, unspecified, with bleeding (principal); R57.1 Hypovolemic shock; D69.59 Other secondary thrombocytopenia; J90 Pleural effusion, not elsewhere classified; N17.9 Acute kidney failure, unspecified; D69.6 Thrombocytopenia, unspecified; R16.1 Splenomegaly, not elsewhere classified; D62 Acute posthemorrhagic anemia; G40.509 Epileptic seizures related to external causes, not intractable, without status epilepticus; K70.31 Alcoholic cirrhosis of liver with ascites; J44.9 Chronic obstructive pulmonary disease, unspecified; K80.20 Calculus of gallbladder without cholecystitis without obstruction; E03.9 Hypothyroidism, unspecified; E87.6 Hypokalemia; I10 Essential (primary) hypertension; M19.90 Unspecified osteoarthritis, unspecified site; K44.9 Diaphragmatic hernia without obstruction or gangrene; K21.0 Gastro-esophageal reflux disease with esophagitis; R73.03 Prediabetes; B18.2 Chronic viral hepatitis C; F10.10 Alcohol abuse, uncomplicated; F14.90 Cocaine use, unspecified, uncomplicated; F31.9 Bipolar disorder, unspecified; F41.9 Anxiety disorder, unspecified; Z72.0 Tobacco use; Z81.1 Family history of alcohol abuse and dependence; Z86.14 Personal history of Methicillin resistant Staphylococcus aureus infection; Z80.0 Family history of malignant neoplasm of digestive organs
CPT/HCPCS: 36430; 71010; 74176; 78226; 80048; 80053; 80076; 82103; 82140; 82150; 82390; 82728; 82784; 83516; 83520; 83540; 83550; 83605; 83690; 83735; 84100; 84702; 85014; 85018; 85025; 85027; 85384; 85610; 85730; 86160; 86225; 86235; 86255; 86431; 86850; 86900; 86901; 86902; 86920; 86922; 87040; 87077; 87205; 87641; 88305; 94664; 96361; 96374; A9537; C9113; J0696; J2060; J2270; J2354; J2405; J3480; J7030; J7040; P9016; P9045

== ENCOUNTER 2017-09-14 15:22 | Inpatient (IN) | payer MEDICAID, OTHER ==
[2017-09-14] VITALS (8 sets, daily range): BP systolic 167–181; BP diastolic 79–98; PULSE 91–120; RESP 15–26; TEMP 98.6–99.6; O2SAT 96–100
[~2017-09-14] VITALS: Ht 154.9 cm; Wt 70.8 kg
[~2017-09-14 15:22] MED LIST changes: +DICY10 PO; +PANT40TA3 PO; +SENN1TAB27 PO; +XIFA200T4 PO
[2017-09-14] MEDS ORDERED: PANTOPRAZOLE INJ 80 MG in SODIUM CHLORIDE 0.9% INJ 35 ML IV ONE (15:29)
[2017-09-14] MEDS ORDERED: SODIUM CHLOR 0.9% 1000 ML INJ 1,000 ML IV SCH ×2 (15:29→16:14)
[2017-09-14] MEDS ORDERED: SODIUM CHLORIDE 0.9% FLUSH 10 ML FLUSH IVF PRN (15:30)
[2017-09-14] MEDS ORDERED: HYDROmorphone HCL PF 2 MG/ML VIAL IV PUSH ONE (15:30)
--- NOTE | 2017-09-14 15:58 | RADRPT ---
EXAM DATE: 09/14/2017 3:55 PM EDT AGE/SEX: 47 years / Female INDICATIONS: Chest and abdominal pain. CLINICAL DATA: This is the patient's initial encounter. Patient reports that signs and symptoms have been present for 1 day and indicates a pain score of 8/10. MEDICAL/SURGICAL HISTORY: None. None. COMPARISON: [facility] [place], CHEST SINGLE AP, 11/18/2016. . FINDINGS: A single AP view of the chest demonstrates the lungs to be symmetrically aerated without evidence of mass, infiltrate or effusion. The cardiomediastinal contours are unremarkable. Osseous structures a re intact. CONCLUSION: No acute intrathoracic disease. Stable examination. Electronically signed by: Freddy Jordan MD 09/14/2017 3:56 PM EDT
--- NOTE | 2017-09-14 16:14 | PD ---
HPI Chief Complaint: Abdominal Pain; Vomiting Time Seen by Provider: 15:29 Travel History International Travel<30 days: No Contact w/Intl Traveler<30days: No History of Present Illness HPI The patient is 47 years old. She arrives by EMS. She has vomiting and abdominal pain. Sudden onset left upper quadrant abdominal pain was reported to EMS. Upon entering the room the patient is crying. She was unable to participate with the history and physical exam. History is therefore limited however we can see she has been in numerous times before for upper GI bleed. PFSH Past Medical History Hx Anticoagulant Therapy: Yes (ASA) Anemia: Yes Arthritis: Yes Asthma: Yes Autoimmune Disease: No Blood Disorders: No Bipolar Disorder: Yes Anxiety: Yes Depression: No Heart Rhythm Problems: Yes (QUESTIONABLE MURMUR) Cancer: No High Cholesterol: No Chemotherapy: No Chest Pain: No Congestive Heart Failure: No Cirrhosis: Yes COPD: Yes Cerebrovascular Accident: No Diminished Hearing: No Diverticulitis: Yes Endocrine: Yes Gastrointestinal Disorders: Yes ("PROBLEMS WITH LIVER", ESOPHAGEAL VARICIES) GERD: Yes Genitourinary: No Headaches: Yes Hepatitis: Yes (A&C) Hiatal Hernia: Yes Heparin Induced Thrombocytopen: No Hypertension: Yes Immune Disorder: No Implanted Vascular Access Dvce: No Kidney Stones: No Musculoskeletal: Yes Neurologic: No Psychiatric: Yes (BIPOLAR) Reproductive: No Respiratory: Yes (COPD) Integumentary: Yes Immunizations Current: No Migraines: No Pancreatitis: Yes Radiation Therapy: No Renal Failure: No Seizures: Yes Sickle Cell Disease: No Sleep Apnea: No Thyroid Disease: Yes Ulcer: Yes Menopausal: Yes : 4 Para: 3 : 1 Tubal Ligation: Yes Past Surgical History Abdominal Surgery: Yes (ESOPHAGEAL VARICES WITH BANDING; paracentesis) AICD: No Arteriovenous Shunt: No Cardiac Surgery: No Ear Surgery: No Endocrine Surgery: No Eye Surgery: No Genitourinary Surgery: No Gynecologic Surgery: Yes (CERVICAL FREEZE) Insulin Pump: No Joint Replacement: No Neurologic Surgery: No Oral Surgery: Yes (ALL TEETH REMOVED) Pacemaker: No Thoracic Surgery: No Other Surgery: Yes (ANTHROSCOPIC RIGHT ANKLE,FRACTURE RIGHT LEG,BONE GRAPH.) Social History Alcohol Use: No (3 months sober) Tobacco Use: Yes (/2 ppd) Substance Use: Yes (COCAINE tuesday ) Allergies-Medications (Allergen,Severity, Reaction): Coded Allergies: *MDRO Multi-Drug Resistant Organism (Verified Adverse Reaction, Unknown, MRSA, 11/19/16) 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) MRSA screen (nares) POSITIVE - 11/18/16 Reported Meds & Prescriptions Reported Meds & Active Scripts Active Senna Lax (Sennosides) 8.6 Mg Tab 17.2 Mg PO Q12H PRN Xifaxan (Rifaximin) 200 Mg Tab 400 Mg PO Q8HR Pantoprazole (Pantoprazole Sodium) 40 Mg Tab 40 Mg PO Q12HR Metoprolol Tartrate 25 Mg Tab 12.5 Mg PO BID Bentyl (Dicyclomine HCl) 10 Mg Cap 10 Mg PO TID Reported Keppra (Levetiracetam) 500 Mg Tab 500 Mg PO BID Buspirone (Buspirone HCl) 15 Mg Tab 15 Mg PO BID Folic Acid 800 Mcg Cap 800 Mcg PO DAILY Spironolactone 50 Mg Tab 50 Mg PO DAILY Tizanidine (Tizanidine HCl) 4 Mg Tab 4 Mg PO TID Levothyroxine (Levothyroxine Sodium) Unknown Strength Tab 1 Tab PO DAILY Zofran (Ondansetron HCl) Unknown Strength Tab 1 Tab PO Q6HR PRN Furosemide Unknown Strength Tab 40 Mg PO DAILY Lactulose Liq (Lactulose) 10 Gm/15 Ml Soln 15 Ml PO BID Review of Systems Except as stated in HPI: all other systems reviewed are Neg General / Constitutional: No: Fever Gastrointestinal: Positive: Nausea, Vomiting, Abdominal Pain Physical Exam Narrative GENERAL: 47-year-old female pleasant well-nourished well-developed moderate distress secondary to pain and/or anxiety Heart rate is 120 Blood pressure is 181/82 O2 sat is 94% on room air SKIN: Warm and dry. HEAD: Atraumatic. Normocephalic. EYES: Pupils equal and round. No scleral icterus. No injection or drainage. ENT: No nasal bleeding or discharge. Mucous membranes pink and moist. NECK: Trachea midline. No JVD. CARDIOVASCULAR: Tachycardia. Regular rhythm. RESPIRATORY: No accessory muscle use. Clear to auscultation. Breath sounds equal bilaterally. GASTROINTESTINAL: Nonspecific generalized tenderness. Soft. MUSCULOSKELETAL: Extremities without clubbing, cyanosis, or edema. No obvious deformities. NEUROLOGICAL: Awake and alert. No obvious cranial nerve deficits. Motor grossly within normal limits. Five out of 5 muscle strength in the arms and legs. Normal speech. PSYCHIATRIC: Appropriate mood and affect; insight and judgment normal. Data Data Last Documented VS Vital Signs Date Time Temp Pulse Resp B/P (MAP) Pulse Ox O2 Delivery O2 Flow Rate FiO2 09/14/17 15:33 99.1 112 17 181/82 (115) 98 Orders Orders Complete Blood Count With Diff (09/14/17 15:) Comprehensive Metabolic Panel (09/14/17:29) Lipase (09/14/17:29) Prothrombin Time / Inr (Pt) (09/14/17:29) Act Partial Throm Time (Ptt) (09/14/17:29) Alcohol (Ethanol) (09/14/17:29) Urinalysis - C+S If Indicated (09/14/17:29) Type And Screen (09/14/17 15:29) Chest, Single Ap (09/14/17 15:29) Cath For Specimen (09/14/17:29) Ecg Monitoring (09/14/17:29) Iv Access Insert/Monitor (09/14/17 15:29) Oximetry (09/14/17 15:29) Oxygen Administration (09/14/17 15:29) Sodium Chlor 0.9% 1000 Ml Inj (Ns 1000 M (09/14/17 15:29) Sodium Chloride 0.9% Flush (Ns Flush) (09/14/17 15:30) Sodium Chloride 0.9... W/Pantoprazole In (09/14/17 15:29) Sodium Chloride 0.9... W/Pantoprazole In (09/14/17 15:29) Hydromorphone Pf Inj (Dilaudid Pf Inj) (09/14/17 15:30) Ct Abd/Pel W Iv Contrast(Rout) (09/14/17 16:14) Sodium Chlor 0.9% 1000 Ml Inj (Ns 1000 M (09/14/17 16:14) Al-Mag Hy-Si 40-40-4 Mg/Ml Liq (Mag-Al P (09/14/17 16:15) Lidocaine 2% Viscous (Xylocaine 2% Visco (09/14/17 16:15) Ceftriaxone Inj (Rocephin Inj) (09/14/17 16:15) Red Blood Cells (Rbc) (09/14/17 16:39) Blood Product Administration (09/14/17 16:39) Sodium Chlor 0.9% 250 Ml Inj (Ns 250 Ml (09/14/17 16:45) Labs Laboratory Tests Test 09/14/17 15:22 White Blood Count 5.7 TH/MM3 Red Blood Count 3.48 MIL/MM3 Hemoglobin 7.7 GM/DL Hematocrit 25.4 % Mean Corpuscular Volume 73.1 FL Mean Corpuscular Hemoglobin 22.0 PG Mean Corpuscular Hemoglobin Concent 30.1 % Red Cell Distribution Width 23.0 % Platelet Count 181 TH/MM3 Mean Platelet Volume 8.9 FL Neutrophils (%) (Auto) 79.4 % Lymphocytes (%) (Auto) 11.5 % Monocytes (%) (Auto) 8.9 % Eosinophils (%) (Auto) 0.0 % Basophils (%) (Auto) 0.2 % Neutrophils # (Auto) 4.5 TH/MM3 Lymphocytes # (Auto) 0.7 TH/MM3 Monocytes # (Auto) 0.5 TH/MM3 Eosinophils # (Auto) 0.0 TH/MM3 Basophils # (Auto) 0.0 TH/MM3 CBC Comment DIFF FINAL Differential Comment Blood Urea Nitrogen 9 MG/DL Creatinine 1.11 MG/DL Random Glucose 112 MG/DL Total Protein 10.4 GM/DL Albumin 3.8 GM/DL Calcium Level 9.3 MG/DL Alkaline Phosphatase 145 U/L Aspartate Amino Transf (AST/SGOT) 61 U/L Alanine Aminotransferase (ALT/SGPT) 33 U/L Total Bilirubin 1.2 MG/DL Sodium Level 138 MEQ/L Potassium Level 3.5 MEQ/L Chloride Level 100 MEQ/L Carbon Dioxide Level 27.3 MEQ/L Anion Gap 11 MEQ/L Estimat Glomerular Filtration Rate 52 ML/MIN Lipase 102 U/L Ethyl Alcohol Level 3 MG/DL MDM Medical Decision Making Medical Screen Exam Complete: Yes Emergency Medical Condition: Yes Medical Record Reviewed: Yes Differential Diagnosis Constipation, Gastritis, Acute Cholecystitis, Biliary Colic, Pancreatitis, MARISCAL , Hepatitis, Bowel Obstruction, Cystitis, Mesenteric Ischemia, AAA, Appendicitis , Renal Stone/Hydronephrosis, GERD, perforated viscous Narrative Course CBC & BMP Diagram 09/14/17 15:22 Total Protein 10.4 H, Albumin 3.8, Calcium Level 9.3, Alkaline Phosphatase 145 H , Aspartate Amino Transf (AST/SGOT) 61 H, Alanine Aminotransferase (ALT/SGPT) 33 , Total Bilirubin 1.2 H d/w Dr Brown at 5pm 2u PRBCs ordered follow up CT scan and admit patient [place] MD September 14, 2017 16:14
[2017-09-14] MEDS ORDERED: ALUMINUM/MAGNESIUM/SIMETH 30 ML CUP PO ONE (16:15)
[2017-09-14] MEDS ORDERED: LIDOCAINE VISCOUS 2% SOLN 15 ML UDC PO ONE (16:15)
[2017-09-14] MEDS ORDERED: cefTRIAXone INJ 1,000 MG in SODIUM CHLORIDE 0.9% INJ 100 ML IV ONE (16:15)
[2017-09-14] MEDS: PANTOPRAZOLE INJ 80 MG in SODIUM CHLORIDE 0.9% INJ 100 ML IV SCH (16:20)
[2017-09-14 16:30] LABS: AUTOMATED NEUTROPHIL # 4.5 TH/MM3 (1.8-7.7); BASOPHIL % 0.2 % (0.0-2.0); HEMATOCRIT 25.4 % (35.0-46.0); HEMOGLOBIN 7.7 GM/DL (11.6-15.3); LYMPH % 11.5 % (9.0-44.0); LYMPHOCYTE # 0.7 TH/MM3 (1.0-4.8); MEAN CELL VOLUME 73.1 FL (80.0-100.0); MEAN CORPUSCULAR HGB CONC 30.1 % (32.0-36.0); MEAN PLATELET VOLUME 8.9 FL (7.0-11.0); MONO % 8.9 % (0.0-8.0); MONOCYTE # 0.5 TH/MM3 (0-0.9); NEUT % 79.4 % (16.0-70.0); PLATELET COUNT 181 TH/MM3 (150-450); RED BLOOD COUNT 3.48 MIL/MM3 (4.00-5.30); WHITE BLOOD COUNT 5.7 TH/MM3 (4.0-11.0)
[2017-09-14 16:42] LABS: ALBUMIN 3.8 GM/DL (3.4-5.0); ALT (GPT) 33 U/L (10-53); AST (GOT) 61 U/L (15-37); BICARBONATE 27.3 MEQ/L (21.0-32.0); BLOOD UREA NITROGEN 9 MG/DL (7-18); CALCIUM 9.3 MG/DL (8.5-10.1); CHLORIDE 100 MEQ/L (98-107); CREATININE 1.11 MG/DL (0.50-1.00); GLOMERULAR FILTRATION RATE 52 ML/MIN (>89); GLUCOSE,RANDOM 112 MG/DL (74-106); SODIUM (NA) 138 MEQ/L (136-145)
[2017-09-14 16:44] LABS: ALKALINE PHOSPHATASE 145 U/L (45-117); TOTAL BILIRUBIN ADULT 1.2 MG/DL (0.2-1.0); TOTAL PROTEIN 10.4 GM/DL (6.4-8.2)
[2017-09-14] MEDS ORDERED: SODIUM CHLOR 0.9% 250 ML INJ 250 ML IV ONE (16:45)
[2017-09-14 16:52] LABS: INTERNATIONAL NORMALIZED RATIO 1.3 RATIO; PROTHROMBIN TIME - PATIENT 13.2 SEC (9.8-11.6)
[2017-09-14] MEDS ORDERED: IOHEXOL 350 MG/ML 10 ML VIAL (for RAD DIAG) IVCONTRAST ONE (21:24)
--- NOTE | 2017-09-14 21:35 | RADRPT ---
EXAM DATE: 09/14/2017 9:24 PM EDT AGE/SEX: 47 years / Female INDICATIONS: Left upper quadrant abdominal pain CLINICAL DATA: This is the patient's initial encounter. Patient reports that signs and symptoms have been present for 2 days and indicates a pain score of 10/10. MEDICAL/SURGICAL HISTORY: Cardiovascular disease. Diverticulitis. Chronic obstructive pulmona ry disease. Seizure, Hypertension, Emphysema, asthma, ulcer, pancreatitis, diabetes, cirrhosis, hepa titis c, hepatitis a,anemia Tubal ligation. ORAL CONTRAST: No oral contrast ingested. RADIATION DOSE: 7.85 CTDI (mGy) COMPARISON: [facility] [place], CT ABDOMEN & PELVIS W CONTRAST, 11/04/2016. [facility] [place], US ABDOMEN - GALLBLADDER, 10/18. [facility] [place], BILIARY SCAN (HIDA), 11/24/2016. [facility] [place], CT ABDOMEN & PELVIS W CONTRAST, 07/06/2016. . TECHNIQUE: Multiple contiguous axial images were obtained through the abdomen and pelvis following b olus infusion of 75 ml Omnipaque 350 (iohexol) nonionic water-soluble contrast as a single exam dos e. No oral contrast ingested. Using automated exposure control and adjustment of the mA and/or kV ac cording to patient size, the radiation dose was kept as low as reasonably achievable to obtain optima l diagnostic quality images. Lower Lungs: The visualized lower lungs are clear. Liver: The liver has a homogeneous density without space-occupying lesion. Mildly nodular surface con tour to the liver, similar to prior. There is no dilation of the biliary tree. Solitary 4 mm calcifie d gallstone near the neck similar to multiple prior studies. Spleen: Homogeneous density without enlargement. Pancreas: Unremarkable without mass or calcification. Kidneys: Normal in size and shape. No evidence of mass or hydronephrosis. Adrenal Glands: Unremarkable. Aorta: The aorta and proximal iliac vessels are grossly unremarkable without aneurysmal dilation. Bowel/Mesentery: No dilated loops of small or large bowel. Abdominal Wall: Intact. Retroperitoneum: No evidence of adenopathy in the retrocrural, para-aortic, or deep pelvic regions. Bladder: Contours are smooth. Reproductive Organs: No abnormal masses or calcifications seen. Inguinal: The inguinal region is unremarkable without evidence of adenopathy. Bony Structures: Unremarkable. CONCLUSION: 1. No acute findings in the abdomen/pelvis. 2. Calcified gallstone and mildly nodular contour to the liver, similar to multiple prior studies. Electronically signed by: Anam Richards MD 09/14/2017 9:33 PM EDT
--- NOTE | 2017-09-14 22:44 | PD ---
Data Data Last Documented VS Vital Signs Date Time Temp Pulse Resp B/P (MAP) Pulse Ox O2 Delivery O2 Flow Rate FiO2 09/14/17 19:01 99.0 98 16 176/87 97 09/14/17 17:00 Nasal Cannula 2.00 Orders Orders Complete Blood Count With Diff (09/14/17 15:29) Comprehensive Metabolic Panel (09/14/17 15:29) Lipase (09/14/17 15:29) Prothrombin Time / Inr (Pt) (09/14/17:29) Act Partial Throm Time (Ptt) (09/14/17 15:29) Alcohol (Ethanol) (09/14/17 15:29) Urinalysis - C+S If Indicated (09/14/17 15:29) Type And Screen (09/14/17:) Chest, Single Ap (09/14/17 15:29) Cath For Specimen (09/14/17 15:29) Ecg Monitoring (09/14/17 15:29) Iv Access Insert/Monitor (09/14/17:29) Oximetry (09/14/17 15:29) Oxygen Administration (09/14/17 15:29) Sodium Chlor 0.9% 1000 Ml Inj (Ns 1000 M (09/14/17 15:29) Sodium Chloride 0.9% Flush (Ns Flush) (09/14/17 15:30) Sodium Chloride 0.9... W/Pantoprazole In (09/14/17 15:29) Sodium Chloride 0.9... W/Pantoprazole In (09/14/17 15:29) Hydromorphone Pf Inj (Dilaudid Pf Inj) (09/14/17 15:30) Ct Abd/Pel W Iv Contrast(Rout) (09/14/17 16:14) Sodium Chlor 0.9% 1000 Ml Inj (Ns 1000 M (09/14/17 16:14) Al-Mag Hy-Si 40-40-4 Mg/Ml Liq (Mag-Al P (09/14/17 16:15) Lidocaine 2% Viscous (Xylocaine 2% Visco (09/14/17 16:15) Ceftriaxone Inj (Rocephin Inj) (09/14/17 16:15) Red Blood Cells (Rbc) (09/14/17 16:39) Blood Product Administration (09/14/17 16:39) Sodium Chlor 0.9% 250 Ml Inj (Ns 250 Ml (09/14/17 16:45) Iohexol 350 Inj (Omnipaque 350 Inj) (09/14/17 21:24) Admit Order (Ed Use Only) (09/14/17 22:38) Labs Laboratory Tests Test 09/14/17 15:22 09/14/17 22:10 White Blood Count 5.7 TH/MM3 Red Blood Count 3.48 MIL/MM3 Hemoglobin 7.7 GM/DL Hematocrit 25.4 % Mean Corpuscular Volume 73.1 FL Mean Corpuscular Hemoglobin 22.0 PG Mean Corpuscular Hemoglobin Concent 30.1 % Red Cell Distribution Width 23.0 % Platelet Count 181 TH/MM3 Mean Platelet Volume 8.9 FL Neutrophils (%) (Auto) 79.4 % Lymphocytes (%) (Auto) 11.5 % Monocytes (%) (Auto) 8.9 % Eosinophils (%) (Auto) 0.0 % Basophils (%) (Auto) 0.2 % Neutrophils # (Auto) 4.5 TH/MM3 Lymphocytes # (Auto) 0.7 TH/MM3 Monocytes # (Auto) 0.5 TH/MM3 Eosinophils # (Auto) 0.0 TH/MM3 Basophils # (Auto) 0.0 TH/MM3 CBC Comment DIFF FINAL Differential Comment Prothrombin Time 13.2 SEC Prothromb Time International Ratio 1.3 RATIO Activated Partial Thromboplast Time 20.5 SEC Blood Urea Nitrogen 9 MG/DL Creatinine 1.11 MG/DL Random Glucose 112 MG/DL Total Protein 10.4 GM/DL Albumin 3.8 GM/DL Calcium Level 9.3 MG/DL Alkaline Phosphatase 145 U/L Aspartate Amino Transf (AST/SGOT) 61 U/L Alanine Aminotransferase (ALT/SGPT) 33 U/L Total Bilirubin 1.2 MG/DL Sodium Level 138 MEQ/L Potassium Level 3.5 MEQ/L Chloride Level 100 MEQ/L Carbon Dioxide Level 27.3 MEQ/L Anion Gap 11 MEQ/L Estimat Glomerular Filtration Rate 52 ML/MIN Lipase 102 U/L Ethyl Alcohol Level 3 MG/DL MDM Supervised Visit with BESS: No Narrative Course This case is checked out to me by Dr. Barrera. He tried to get the patient admitted for GI bleed with anemia but hospitalist declined to admit him until a CT of the abdomen and pelvis was completed. This took many hours to get done due to several reasons including trauma alert is taking precedence and wants a blood transfusion was started they did not want to take her until it was done. In any event CT scan is complete and is negative for acute problem. Patient's hemoglobin was 7.7 and she has received 2 units of packed red cells I have discussed the case in detail with hospitalist for the evening shift who is Dr. Conley and he agrees to admit for GI bleed with anemia Diagnosis Primary Impression: GI bleed Qualified Codes: K92.2 - Gastrointestinal hemorrhage, unspecified Additional Impression: Anemia Qualified Codes: D64.9 - Anemia, unspecified Admitting Information Admitting Physician Requests: Admit Chintan Grover MD September 14, 2017 22:44
[2017-09-14 22:57] LABS: BILIRUBIN, URINE NEG (NEG); BLOOD, URINE NEG (NEG); GLUCOSE,URINE NEG (NEG); KETONE, URINE NEG (NEG); NITRITE,URINE NEG (NEG); RENAL EPITHELIAL CELLS <1 /hpf; SQUAMOUS EPITHELIAL CELL URINE <1 /hpf (0-5); TRANSITIONAL EPI CELLS, URINE <1 /hpf; URINE COLOR YELLOW (YELLW/STRAW); URINE LEUKOCYTE ESTERASE NEG (NEG)
[2017-09-14] MEDS ORDERED: SENNOSIDES 8.6 MG TAB PO PRN (23:00)
[2017-09-14] MEDS ORDERED: MAGNESIUM HYDROXIDE SUSP 30 ML CUP PO PRN (23:00)
[2017-09-14] MEDS ORDERED: LACTULOSE SYRUP 20 GM/30 ML CUP PO PRN (23:00)
[2017-09-14] MEDS ORDERED: BISACODYL 10 MG SUPP RECTAL PRN (23:00)
[2017-09-14] MEDS ORDERED: NALOXONE HCL 0.4 MG/ML AMP IV PUSH PRN (23:00)
[2017-09-14] MEDS ORDERED: SODIUM CHLORIDE 0.9% FLUSH 10 ML FLUSH IV FLUSH PRN (23:00)
[2017-09-15] VITALS (9 sets, daily range): BP systolic 158–196; BP diastolic 73–102; PULSE 84–115; RESP 16–24; TEMP 98.7–99.5; O2SAT 86–97
[2017-09-15] MEDS: ACETAMINOPHEN 325 MG TAB PO PRN ×4 (01:54→19:54)
--- NOTE | 2017-09-15 02:10 | HHI.HP ---
[facility] Maverick Zafar, DO Admission Diagnosis GI bleed, anemia Diagnoses: Chief Complaint: Nausea, vomiting, Anemia. Travel History International Travel<30 Days: No Contact w/Intl Traveler <30 Da: No Traveled to Known Affected Are: No History of Present Illness Ms. Murray is a pleasant 47 year old female with a history of chronic hepatitis C, alcohol abuse, liver cirrhosis who presents to the emergency department due to nausea vomiting and generalized weakness. For the last 2-3 days prior to this admission, patient often experiences blackout and falls. She denies any lower extremity weakness, chest pain, fever or chills prior to her falls. Additionally she also reports odynophagia and dysphasia. Upon admission, blood pressure 181/82, pulse 112, respirations 17, temperature 99.1F, pulse oximetry 98% on 2 L of oxygen. Hemoglobin 7.7 hematocrit 25.4 MCV 73.1. Patient received 2 units of PRBCs per ED provider. Review of Systems Except as stated in HPI: all other systems reviewed are Neg Past Family Social History Past Medical History Chronic hepatitis C, alcoholic liver disease, liver cirrhosis, esophageal varices Past Surgical History Arthroscopic right ankle surgery, right leg fracture surgery. Reported Medications Senna Lax (Sennosides) 8.6 Mg Tab 17.2 Mg PO Q12H PRN Xifaxan (Rifaximin) 200 Mg Tab 400 Mg PO Q8HR Pantoprazole (Pantoprazole Sodium) 40 Mg Tab 40 Mg PO Q12HR Metoprolol Tartrate 25 Mg Tab 12.5 Mg PO BID Bentyl (Dicyclomine HCl) 10 Mg Cap 10 Mg PO TID Reported Keppra (Levetiracetam) 500 Mg Tab 500 Mg PO BID Buspirone (Buspirone HCl) 15 Mg Tab 15 Mg PO BID Folic Acid 800 Mcg Cap 800 Mcg PO DAILY Spironolactone 50 Mg Tab 50 Mg PO DAILY Tizanidine (Tizanidine HCl) 4 Mg Tab 4 Mg PO TID Levothyroxine (Levothyroxine Sodium) Unknown Strength Tab 1 Tab PO DAILY Zofran (Ondansetron HCl) Unknown Strength Tab 1 Tab PO Q6HR PRN Furosemide Unknown Strength Tab 40 Mg PO DAILY Lactulose Liq (Lactulose) 10 Gm/15 Ml Soln 15 Ml PO BID Allergies: Coded Allergies: *MDRO Multi-Drug Resistant Organism (Verified Adverse Reaction, Unknown, MRSA, 11/19/16) 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) MRSA screen (nares) POSITIVE - 11/18/16 Family History Father with heart disease, mother with cancer. Social History Patient reports drinking 4 beers a day in the last 2 weeks. She admitted smoking about half a pack a day. She also admitted using cocaine. Physical Exam Vital Signs Vital Signs Date Time Temp Pulse Resp B/P (MAP) Pulse Ox O2 Delivery O2 Flow Rate FiO2 09/15/17 01:43 100 23 158/94 (115) 09/15/17 01:33 09/15/17 00:12 99.4 100 24 189/94 96 09/14/17 23:17 99.4 91 26 167/92 100 09/14/17 23:14 99.6 109 22 167/92 100 09/14/17 22:56 99.1 100 18 171/98 96 09/14/17 20:00 99.0 96 16 169/85 96 09/14/17 19:01 99.0 98 16 176/87 97 09/14/17 18:46 98.6 103 15 180/86 98 09/14/17 17:00 120 16 167/79 (108) 96 Nasal Cannula 2.00 09/14/17 15:33 99.1 112 17 181/82 (115) 98 09/14/17 15:33 98 Nasal Cannula 2.00 Physical Exam GENERAL: This is a well-nourished, well-developed patient, in no apparent distress. SKIN: No rashes, ecchymoses or lesions. Warm and dry. HEAD: Atraumatic. Normocephalic. No temporal or scalp tenderness. EYES: Pupils equal round and reactive. No injection or drainage. ENT: Nose without bleeding, purulent drainage or septal hematoma. Airway patent. NECK: Trachea midline. No lymphadenopathy. Supple, nontender, no meningeal signs. CARDIOVASCULAR: Regular rate and rhythm without murmurs, gallops, or rubs. No JVD. RESPIRATORY: Clear to auscultation. Breath sounds equal bilaterally. No wheezes , rales, or rhonchi. GASTROINTESTINAL: Abdomen soft, diffusely tender to palpation, nondistended. No guarding. MUSCULOSKELETAL: Extremities without clubbing, cyanosis, or edema. NEUROLOGICAL: Awake and alert. Cranial nerves II through XII intact. No focal neurological deficits. Normal speech. Laboratory Laboratory Tests Test 09/14/17 15:22 09/14/17 22:10 White Blood Count 5.7 Red Blood Count 3.48 Hemoglobin 7.7 Hematocrit 25.4 Mean Corpuscular Volume 73.1 Mean Corpuscular Hemoglobin 22.0 Mean Corpuscular Hemoglobin Concent 30.1 Red Cell Distribution Width 23.0 Platelet Count 181 Mean Platelet Volume 8.9 Neutrophils (%) (Auto) 79.4 Lymphocytes (%) (Auto) 11.5 Monocytes (%) (Auto) 8.9 Eosinophils (%) (Auto) 0.0 Basophils (%) (Auto) 0.2 Neutrophils # (Auto) 4.5 Lymphocytes # (Auto) 0.7 Monocytes # (Auto) 0.5 Eosinophils # (Auto) 0.0 Basophils # (Auto) 0.0 CBC Comment DIFF FINAL Differential Comment Prothrombin Time 13.2 Prothromb Time International Ratio 1.3 Activated Partial Thromboplast Time 20.5 Blood Urea Nitrogen 9 Creatinine 1.11 Random Glucose 112 Total Protein 10.4 Albumin 3.8 Calcium Level 9.3 Alkaline Phosphatase 145 Aspartate Amino Transf (AST/SGOT) 61 Alanine Aminotransferase (ALT/SGPT) 33 Total Bilirubin 1.2 Sodium Level 138 Potassium Level 3.5 Chloride Level 100 Carbon Dioxide Level 27.3 Anion Gap 11 Estimat Glomerular Filtration Rate 52 Lipase 102 Ethyl Alcohol Level 3 Urine Color YELLOW Urine Turbidity CLEAR Urine pH 6.0 Urine Specific [place] 1.020 Urine Protein NEG Urine Glucose (UA) NEG Urine Ketones NEG Urine Occult Blood NEG Urine Nitrite NEG Urine Bilirubin NEG Urine Urobilinogen LESS THAN 2.0 Urine Leukocyte Esterase NEG Urine RBC LESS THAN 1 Urine WBC 2 Urine Squamous Epithelial Cells <1 Urine Transitional Epithelial Cells <1 Urine Renal Epithelial Cells <1 Microscopic Urinalysis Comment CULT NOT INDICATED Result Diagram: 09/14/17 1522 09/14/17 1522 Imaging Last Impressions Abdomen/Pelvis CT 09/14/17 1614 Signed Impressions: CONCLUSION: 1. No acute findings in the abdomen/pelvis. 2. Calcified gallstone and mildly nodular contour to the liver, similar to [facility] [place] prior studies. Chest X-Ray 09/14/17 1529 Signed Impressions: CONCLUSION: No acute intrathoracic disease. Stable examination. Caprini VTE Risk Assessment Caprini VTE Risk Assessment: Mod/High Risk (score >= 2) Caprini Risk Assessment Model Point Value = 1 Point Value = 2 Point Value = 3 Point Value = 5 Age 41-60 Minor surgery BMI > 25 kg/m2 Swollen legs Varicose veins or History of unexplained or recurrent spontaneous Oral contraceptives or hormone replacement Sepsis (< 1 month) Serious lung disease, including pneumonia (< 1 month) Abnormal pulmonary function Acute myocardial infarction Congestive heart failure (< 1 month) History of inflammatory bowel disease Medical patient at bed rest Age 61-74 Arthroscopic surgery Major open surgery (> 45 min) Laparoscopic surgery (> 45 min) Malignancy Confined to bed (> 72 hours) Immobilizing plaster cast Central venous access Age >= 75 History of VTE Family history of VTE Factor V Leiden Prothrombin [id number] Lupus anticoagulant Anticardiolipin antibodies Elevated serum homocysteine Heparin-induced thrombocytopenia Other congenital or acquired thrombophilia Stroke (< 1 month) Elective arthroplasty Hip, pelvis, or leg fracture Acute spinal cord injury (< 1 month) Prophylaxis Regimen Total Risk Factor Score Risk Level Prophylaxis Regimen 0-1 Low Early ambulation 2 Moderate Order ONE of the following: *Sequential Compression Device (SCD) *Heparin 5000 units SQ BID 3-4 Higher Order ONE of the following medications: *Heparin 5000 units SQ TID *Enoxaparin/Lovenox 40 mg SQ daily (WT < 150 kg, CrCl > 30 mL/min) *Enoxaparin/Lovenox 30 mg SQ daily (WT < 150 kg, CrCl > 10-29 mL/min) *Enoxaparin/Lovenox 30 mg SQ BID (WT < 150 kg, CrCl > 30 mL/min) AND/OR *Sequential Compression Device (SCD) 5 or more Highest Order ONE of the following medications: *Heparin 5000 units SQ TID (Preferred with Epidurals) *Enoxaparin/Lovenox 40 mg SQ daily (WT < 150 kg, CrCl > 30 mL/min) *Enoxaparin/Lovenox 30 mg SQ daily (WT < 150 kg, CrCl > 10-29 mL/min) *Enoxaparin/Lovenox 30 mg SQ BID (WT < 150 kg, CrCl > 30 mL/min) AND *Sequential Compression Device (SCD) Assessment and Plan Problem List: (1) Microcytic hypochromic anemia ICD Code: D50.9 - Iron deficiency anemia, unspecified (2) Polysubstance abuse ICD Code: F19.10 - Polysubstance abuse Status: Chronic (3) Cirrhosis of liver ICD Code: K74.60 - Unspecified cirrhosis of liver Status: Chronic (4) Hepatitis C ICD Code: B19.20 - Unspecified viral hepatitis C without hepatic coma Status: Chronic (5) Nausea & vomiting ICD Code: R11.2 - Nausea with vomiting, unspecified Assessment and Plan Ms. Murray is a pleasant 47-year-old female with a history of liver cirrhosis likely due to chronic hepatitis C, alcoholic liver disease who presents to the emergency department on 09/14/2017 due to nausea vomiting as well as frequent syncopal episodes. She was found to have microcytic hypochromic anemia with hemoglobin 7.7. She received 2 units of PRBCs by ED provider. Nausea vomiting Dysphagia -Etiology non-specific. -We will consult GI for an evaluation. May need a Modified Barium Swallow study as well to evaluate oropharyngeal dysphagia -Provide supportive care with Zofran Microcytic hypochromic anemia -Patient underwent EGD and colonoscopy in 2017. Her hemoglobin at that point was 9.8. -Patient has grade 1 esophageal varices. Will consult GI for further evaluation and further need for endoscopic studies. Frequent syncopal episodes -Keep patient on Telemetry to look for any cardiac cause. - Will also check Vitamin B12 and Methylmalonic acid levels. -PT eval. Tobacco abuse Cocaine abuse Alcohol abuse - Patient is counselled to quit substance abuse - CIWA Protocol. Full code. SCDs. Physician Certification 2 Midnight Certification Type: Admission for Inpatient Services Order for Inpatient Services The services are ordered in accordance with Medicare regulations or non- Medicare payer requirements, as applicable. In the case of services not specified as inpatient-only, they are appropriately provided as inpatient services in accordance with the 2-midnight benchmark. Estimated LOS (days): 2 days is the estimated time the patient will need to remain in the hospital, assuming treatment plan goals are met and no additional complications. Post-Hospital Plan: Jose August DO September 15, 2017 02:10
[2017-09-15] MEDS: PANTOPRAZOLE INJ 80 MG in SODIUM CHLORIDE 0.9% INJ 100 ML IV SCH ×3 (02:19→22:00)
[2017-09-15] MEDS: ONDANSETRON ODT 4 MG TAB PO PRN (03:41)
[2017-09-15] MEDS ORDERED: FLUMAZENIL 0.5 MG/5 ML VIAL IV PUSH PRN (04:30)
[2017-09-15] MEDS ORDERED: LORazepam 2 MG/ML VIAL IV PUSH PRN ×4 (04:30)
[2017-09-15] MEDS ORDERED: LORazepam 2 MG TAB PO PRN (04:30)
[2017-09-15 06:54] LABS: AUTOMATED NEUTROPHIL # 5.2 TH/MM3 (1.8-7.7); BASOPHIL % 0.6 % (0.0-2.0); EOSINOPHIL % 0.1 % (0.0-4.0); HEMATOCRIT 29.8 % (35.0-46.0); HEMOGLOBIN 9.5 GM/DL (11.6-15.3); LYMPH % 11.5 % (9.0-44.0); LYMPHOCYTE # 0.8 TH/MM3 (1.0-4.8); MEAN CELL VOLUME 77.4 FL (80.0-100.0); MEAN CORPUSCULAR HEMOGLOBIN 24.6 PG (27.0-34.0); MEAN CORPUSCULAR HGB CONC 31.8 % (32.0-36.0); MEAN PLATELET VOLUME 9.5 FL (7.0-11.0); MONO % 13.1 % (0.0-8.0); MONOCYTE # 0.9 TH/MM3 (0-0.9); NEUT % 74.7 % (16.0-70.0); PLATELET COUNT 144 TH/MM3 (150-450); RED BLOOD COUNT 3.85 MIL/MM3 (4.00-5.30); RED CELL DISTRIBUTION WIDTH 21.9 % (11.6-17.2)
[2017-09-15 07:19] LABS: BICARBONATE 26.1 MEQ/L (21.0-32.0); CREATININE 0.88 MG/DL (0.50-1.00)
[2017-09-15] MEDS: SODIUM CHLORIDE 0.9% FLUSH 10 ML FLUSH IV FLUSH SCH ×2 (08:02→19:55)
[2017-09-15] MEDS: LORazepam 1 MG TAB PO PRN ×3 (09:31→19:54)
--- NOTE | 2017-09-15 12:46 | PD.CONS ---
HPI History of Present Illness This is a 47 year old F with PMh significant for cirrhosis secondary to ETOH abuse and chronic hepatitis C and HTN who presented to the ER yesterday with complaints of nausea and vomiting. Pt was unable to answer any of my questions during my exam, she could not keep her eyes open, Ativan last received three hours prior for CIWA protocol. All history obtained through ER and admission notes as well as previous visits. Pt has been seen by our service in the past and underwent both EGD and colonoscopy. According to admission notes pt reported multiple episodes of nausea and vomiting and has been weak over the past 2-3 days. The ER note states pt was also complaining of LUQ abdominal pain. Pt does have history of ETOH abuse, unclear when her last drink of alcohol was. According to admission notes, reported drinking 4 beers a day for the past 2 weeks. Also had admitted to cocaine use. Also known history of Hepatitis C according to notes, no labs seen regarding this in chart. Last EGD in October 2016 revealed mild gastritis, esophagitis, and hiatal hernia. EGD done earlier that month revealed minimal varices. Colonoscopy done in October 2016 revealed normal exam. (Jesika Troncoso) PFSH Past Medical History Chronic hepatitis C, alcoholic liver disease, liver cirrhosis, esophageal varices Past Surgical History Arthroscopic right ankle surgery, right leg fracture surgery. (Jesika Troncoso) Coded Allergies: *MDRO Multi-Drug Resistant Organism (Verified Adverse Reaction, Unknown, MRSA, 11/19/16) 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) MRSA screen (nares) POSITIVE - 11/18/16 Family History Father with heart disease, mother with cancer. Social History Patient reports drinking 4 beers a day in the last 2 weeks. She admitted smoking about half a pack a day. She also admitted using cocaine. (Jesika Troncoso) Review of Systems Unable to obtain (Jesika Troncoso) GI Exam Vitals I&O Vital Signs Date Time Temp Pulse Resp B/P (MAP) Pulse Ox O2 Delivery O2 Flow Rate FiO2 09/15/17 08:00 99.4 105 16 189/89 (122) 93 09/15/17 08:00 93 Room Air 09/15/17 04:00 Room Air 09/15/17 04:00 98.9 84 19 196/73 (114) 95 09/15/17 01:44 99.5 115 19 165/102 (123) 94 09/15/17 01:43 100 23 158/94 (115) 09/15/17 01:33 09/15/17 00:12 99.4 100 24 189/94 96 09/15/17 00:00 Room Air 09/14/17 23:17 99.4 91 26 167/92 100 09/14/17 23:14 99.6 109 22 167/92 100 09/14/17 22:56 99.1 100 18 171/98 96 09/14/17 20:00 99.0 96 16 169/85 96 09/14/17 19:01 99.0 98 16 176/87 97 09/14/17 18:46 98.6 103 15 180/86 98 09/14/17 17:00 120 16 167/79 (108) 96 Nasal Cannula 2.00 09/14/17 15:33 99.1 112 17 181/82 (115) 98 09/14/17 15:33 98 Nasal Cannula 2.00 I/O 09/14/17 09/14/17 09/14/17 09/15/17 09/15/17 09/15/17 07:00 15:00 23:00 07:00 15:00 23:00 Intake Total 2925 ml 987 ml Balance 2925 ml 987 ml Intake Oral 462 ml IV Total 2100 ml 100 ml Packed Cells 400 ml 400 ml Blood Product IV Normal Saline Flush 425 ml 25 ml # Voids 2 # Bowel Movements 0 Imaging Last Impressions Abdomen/Pelvis CT 09/14/17 1614 Signed Impressions: CONCLUSION: 1. No acute findings in the abdomen/pelvis. 2. Calcified gallstone and mildly nodular contour to the liver, similar to [facility] prior studies. Chest X-Ray 09/14/17 1529 Signed Impressions: CONCLUSION: No acute intrathoracic disease. Stable examination. Laboratory Test 09/14/17 15:22 09/14/17 22:10 09/15/17 05:13 09/15/17 08:20 White Blood Count 5.7 TH/MM3 7.0 TH/MM3 Red Blood Count 3.48 MIL/MM3 3.85 MIL/MM3 Hemoglobin 7.7 GM/DL 9.5 GM/DL Hematocrit 25.4 % 29.8 % Mean Corpuscular Volume 73.1 FL 77.4 FL Mean Corpuscular Hemoglobin 22.0 PG 24.6 PG Mean Corpuscular Hemoglobin Concent 30.1 % 31.8 % Red Cell Distribution Width 23.0 % 21.9 % Platelet Count 181 TH/MM3 144 TH/MM3 Mean Platelet Volume 8.9 FL 9.5 FL Neutrophils (%) (Auto) 79.4 % 74.7 % Lymphocytes (%) (Auto) 11.5 % 11.5 % Monocytes (%) (Auto) 8.9 % 13.1 % Eosinophils (%) (Auto) 0.0 % 0.1 % Basophils (%) (Auto) 0.2 % 0.6 % Neutrophils # (Auto) 4.5 TH/MM3 5.2 TH/MM3 Lymphocytes # (Auto) 0.7 TH/MM3 0.8 TH/MM3 Monocytes # (Auto) 0.5 TH/MM3 0.9 TH/MM3 Eosinophils # (Auto) 0.0 TH/MM3 0.0 TH/MM3 Basophils # (Auto) 0.0 TH/MM3 0.0 TH/MM3 CBC Comment DIFF FINAL DIFF FINAL Differential Comment Prothrombin Time 13.2 SEC Prothromb Time International Ratio 1.3 RATIO Activated Partial Thromboplast Time 20.5 SEC Blood Urea Nitrogen 9 MG/DL 8 MG/DL Creatinine 1.11 MG/DL 0.88 MG/DL Random Glucose 112 MG/DL 90 MG/DL Total Protein 10.4 GM/DL Albumin 3.8 GM/DL Calcium Level 9.3 MG/DL 8.0 MG/DL Alkaline Phosphatase 145 U/L Aspartate Amino Transf (AST/SGOT) 61 U/L Alanine Aminotransferase (ALT/SGPT) 33 U/L Total Bilirubin 1.2 MG/DL Sodium Level 138 MEQ/L 139 MEQ/L Potassium Level 3.5 MEQ/L 3.5 MEQ/L Chloride Level 100 MEQ/L 102 MEQ/L Carbon Dioxide Level 27.3 MEQ/L 26.1 MEQ/L Anion Gap 11 MEQ/L 11 MEQ/L Estimat Glomerular Filtration Rate 52 ML/MIN 68 ML/MIN Lipase 102 U/L Ethyl Alcohol Level 3 MG/DL Urine Color YELLOW Urine Turbidity CLEAR Urine pH 6.0 Urine Specific [place] 1.020 Urine Protein NEG mg/dL Urine Glucose (UA) NEG mg/dL Urine Ketones NEG mg/dL Urine Occult Blood NEG Urine Nitrite NEG Urine Bilirubin NEG Urine Urobilinogen LESS THAN 2.0 MG/DL Urine Leukocyte Esterase NEG Urine RBC LESS THAN 1 /hpf Urine WBC 2 /hpf Urine Squamous Epithelial Cells <1 /hpf Urine Transitional Epithelial Cells <1 /hpf Urine Renal Epithelial Cells <1 /hpf Microscopic Urinalysis Comment CULT NOT INDICATED Vitamin B12 Level 411 PG/ML Physical Examination HEENT: Normocephalic; atraumatic CHEST: Even/unlabored CARDIAC: RRR ABDOMEN: Soft, nondistended, nontender; bowel sounds active EXTREMITIES: No clubbing, cyanosis, or edema. CASHIER: lethargic, opens eyes but then falls back asleep (Jesika Troncoso) Assessment and Plan Plan Assessment: Pt is very lethargic and will open her eyes but does not respond verbally, Ativan 3 hours prior to exam per [facility] protocol, history obtained through chart review - Anemia, microcytic H/H 7.7/25.4 S/P 2 U PRBCs Nausea and vomiting- possible upper GIB- history of same Repots of ETOH abuse- according to admission notes, reports 4 beers a day for the past 2 weeks. No blood thinners noted in chart. Unsure of NSAID use. EGD (October 2016) --> Gastritis, esophagitis, hiatal hernia EGD done earlier that month did reveal minimal varices. Colonoscopy (October 2016) --> Normal exam CT abdomen and pelvis W IV contrast (09/14) --> No acute findings in the abdomen/pelvis. Calcified gallstone and mildly nodular contour to the liver, similar to multiple prior studies. - Cirrhosis- secondary to ETOH abuse and reports of chronic Hep C, unsure of treatment Elevated LFTs consistent with ETOH hepatitis- AST-61 ALT-33 T bili-1.2 Alk phos-145 INR-1.3 Thrombocytopenia- platelets-144 Plan: EGD tomorrow Obtain consent NPO after MN Clear liquids today Monitor H/H Transfuse as indicated Protonix gtt Hepatitis C genotype and quant Antiemetics PRN Alcohol withdraw protocol Monitor labs Further recommendations based on clinical course Pt has been seen and examined by myself and Dr. Willams and this note is written on his behalf (Jesika Troncoso) Physician Comments Patient seen and examined Agree with above Continue with current supportive care Monitor labs Plan for an EGD tomorrow (Sami Willams MD) Jesika Troncoso September 15, 2017 12:46 Sami Willams MD September 15, 2017 22:36
[2017-09-15] MEDS ORDERED: PILL SPLITTER OTHER PRN (21:30)
[2017-09-15] MEDS ORDERED: CYCLOBENZAPRINE HCL 10 MG TAB PO ONE (21:30)
[2017-09-16] VITALS (7 sets, daily range): BP systolic 163–189; BP diastolic 76–97; PULSE 80–115; RESP 18–20; TEMP 97.9–99; O2SAT 91–100
[2017-09-16] MEDS: LORazepam 1 MG TAB PO PRN ×3 (03:20→21:45)
[2017-09-16] MEDS: PANTOPRAZOLE INJ 80 MG in SODIUM CHLORIDE 0.9% INJ 100 ML IV SCH (07:29)
[2017-09-16] MEDS: SODIUM CHLORIDE 0.9% FLUSH 10 ML FLUSH IV FLUSH SCH ×2 (09:00→21:33)
[2017-09-16] MEDS ORDERED: LIDOCAINE HCL 1% PF 5 ML SYRINGE OTHER ONE (10:51)
[2017-09-16] MEDS ORDERED: PROPOFOL 200 MG/20 ML AMP IV ONE (10:51)
[2017-09-16] MEDS ORDERED: DO NOT ADM ANY ANTICOAGULANT DRUGS PRN (14:45)
[2017-09-16] MEDS ORDERED: *morphine SULFATE 4 MG/ML PERIprocedure ONLY ONE (14:53)
--- NOTE | 2017-09-16 14:57 | PD.PROCEDR ---
GI Procedure PROCEDURE PERFORMED EGD with biopsy INDICATION FOR PROCEDURE Anemia, history of cirrhosis, alcoholic hepatitis PROCEDURE: The procedure, risks and benefits were discussed with Patient/POA and informed consent was obtained. Anesthesia sedated Patient with Diprivan. Patient was placed in the left lateral decubitus position. EGD: The Pentax videoscope was introduced through the oropharynx and advanced to the second portion of the duodenum under direct visualization. Retroflexion was performed in the stomach. FINDINGS: The esophagus this appeared to be unremarkable with normal limits no esophageal varices noted today The stomach there was evidence of mild portal gastropathy but there were also superficial linear ulcerations and erosions in the antrum no visible vessel no active bleeding antral biopsies were taken for further evaluation the rest of the stomach was unremarkable and no gastric varices noted The duodenum this was normal ESTIMATED BLOOD LOSS: None SPECIMENS REMOVED: Gastric biopsy COMPLICATIONS: None IMPRESSION: Gastric ulcers Gastropathy PLAN: Await biopsies Recommend PPI Avoid NSAIDs and aspirin EGD in 2 months Advance diet Continue with current supportive care Sami Willams MD September 16, 2017 14:56
[2017-09-16] MEDS: PANTOPRAZOLE SOD 40 MG DELAYED RELEASE TAB PO SCH (15:31)
--- NOTE | 2017-09-16 16:43 | HHI.PR ---
Subjective Remarks Patient says she is feeling better than yesterday. Still abdominal discomfort. Objective Vital Signs Date Time Temp Pulse Resp B/P (MAP) Pulse Ox O2 Delivery O2 Flow Rate FiO2 09/16/17 15:00 100 14 168/72 (104) 94 Nasal Cannula 2 09/16/17 14:45 97 14 171/68 (102) 95 Nasal Cannula 2 09/16/17 14:30 98.1 104 14 172/71 (104) 95 Nasal Cannula 2 09/16/17 13:45 85 12 162/74 (103) 95 09/16/17 13:00 94 17 143/93 (110) 95 09/16/17 12:45 84 16 156/86 (109) 95 09/16/17 12:30 98.7 98 13 170/96 (120) 95 09/16/17 12:30 98 09/16/17 12:00 98.8 80 20 189/95 (126) 96 09/16/17 08:00 97.9 102 18 175/92 (119) 94 09/16/17 04:00 98.1 95 18 167/80 (109) 91 09/16/17 04:00 Room Air 09/16/17 04:00 98 09/16/17 00:00 Room Air 09/16/17 00:00 98 09/16/17 00:00 99.0 90 18 163/76 (105) 94 09/15/17 20:00 99.2 93 18 184/93 (123) 97 09/15/17 20:00 97 09/15/17 20:00 Room Air 09/15/17 17:46 102 I/O 09/15/17 09/15/17 09/15/17 09/16/17 09/16/17 09/16/17 07:00 15:00 23:00 07:00 15:00 23:00 Intake Total 987 ml 820 ml 80 ml 200 ml Balance 987 ml 820 ml 80 ml 200 ml Intake Oral 462 ml 720 ml 0 ml IV Total 100 ml 100 ml 80 ml Packed Cells 400 ml Blood Product IV Normal Saline Flush 25 ml Other 200 ml # Voids 2 2 1 # Bowel Movements 0 0 Result Diagram: 09/15/1751209/15/17512 Objective Remarks GENERAL: Patient sitting up on edge of bed. Appears comfortable. SKIN: Warm and dry. HEAD: Normocephalic. EYES: No scleral icterus. No injection or drainage. NECK: Supple, trachea midline. No JVD or lymphadenopathy. CARDIOVASCULAR: Regular rate and rhythm without murmurs, gallops, or rubs. RESPIRATORY: Breath sounds equal bilaterally. No accessory muscle use. GASTROINTESTINAL: Abdomen soft, non-tender, nondistended. MUSCULOSKELETAL: No cyanosis, or edema. BACK: Nontender without obvious deformity. No CVA tenderness. A/P Assessment and Plan Ms. Murray is a pleasant 47-year-old female with a history of liver cirrhosis likely due to chronic hepatitis C, alcoholic liver disease who presents to the emergency department on 09/14/2017 due to nausea vomiting as well as frequent syncopal episodes. She was found to have microcytic hypochromic anemia with hemoglobin 7.7. She received 2 units of PRBCs by ED provider. //Nausea vomiting //Dysphagia -Etiology non-specific. -We will consult GI for an evaluation. May need a Modified Barium Swallow study as well to evaluate oropharyngeal dysphagia -Provide supportive care with Zofran = Status post EGD with gastritis. Repeat CBC ordered for tomorrow morning by GI. Discharge when cleared by GI //Microcytic hypochromic anemia -Patient underwent EGD and colonoscopy in 2017. Her hemoglobin at that point was 9.8. -Patient has grade 1 esophageal varices. Will consult GI for further evaluation and further need for endoscopic studies. = Anemia improved to 9.5 yesterday after transfusion. Repeat CBC today. //Frequent syncopal episodes -Keep patient on Telemetry to look for any cardiac cause. - Will also check Vitamin B12 and Methylmalonic acid levels. -PT eval. //Tobacco abuse //Cocaine abuse //Alcohol abuse - Patient is counselled to quit substance abuse - [facility] Protocol. //Full code. SCDs. Discharge Planning Discharge tomorrow if hemoglobin is stable and patient feeling well. Cristian Narvaez MD September 16, 2017 16:43
[2017-09-16] MEDS: ACETAMINOPHEN 325 MG TAB PO PRN ×2 (17:26→21:45)
[2017-09-16 18:00] LABS: AUTOMATED NEUTROPHIL # 3.1 TH/MM3 (1.8-7.7); BASOPHIL % 0.7 % (0.0-2.0); EOSINOPHIL % 0.7 % (0.0-4.0); HEMATOCRIT 33.8 % (35.0-46.0); HEMOGLOBIN 10.7 GM/DL (11.6-15.3); LYMPH % 20.2 % (9.0-44.0); MEAN CELL VOLUME 77.8 FL (80.0-100.0); MEAN CORPUSCULAR HEMOGLOBIN 24.6 PG (27.0-34.0); MEAN CORPUSCULAR HGB CONC 31.7 % (32.0-36.0); MEAN PLATELET VOLUME 9.1 FL (7.0-11.0); MONOCYTE # 0.8 TH/MM3 (0-0.9); NEUT % 62.4 % (16.0-70.0); PLATELET COUNT 142 TH/MM3 (150-450); RED BLOOD COUNT 4.35 MIL/MM3 (4.00-5.30); RED CELL DISTRIBUTION WIDTH 21.9 % (11.6-17.2)
[2017-09-17] VITALS: BP 154/92; PULSE 104; PULSE 107; RESP 16; TEMP 98.6; O2SAT 94
[2017-09-17 04:00] VITALS: BP 145/85; PULSE 103; PULSE 93; RESP 18; TEMP 97.4; O2SAT 94
[2017-09-17 07:41] LABS: HEMATOCRIT 32.8 % (35.0-46.0); HEMOGLOBIN 10.4 GM/DL (11.6-15.3); MEAN CELL VOLUME 77.7 FL (80.0-100.0); MEAN CORPUSCULAR HEMOGLOBIN 24.6 PG (27.0-34.0); MEAN CORPUSCULAR HGB CONC 31.7 % (32.0-36.0); MEAN PLATELET VOLUME 8.8 FL (7.0-11.0); PLATELET COUNT 157 TH/MM3 (150-450); RED BLOOD COUNT 4.22 MIL/MM3 (4.00-5.30); RED CELL DISTRIBUTION WIDTH 22.1 % (11.6-17.2)
[2017-09-17 08:00] VITALS: BP_SYST 161; BP_SYST 173; BP_DIAS 93; BP_DIAS 97; PULSE 101; PULSE 107; RESP 20; TEMP 98.5; O2SAT 95
[2017-09-17] MEDS: PANTOPRAZOLE SOD 40 MG DELAYED RELEASE TAB PO SCH (09:06)
[2017-09-17] MEDS: SODIUM CHLORIDE 0.9% FLUSH 10 ML FLUSH IV FLUSH SCH (09:06)
[2017-09-17] MEDS: ONDANSETRON ODT 4 MG TAB PO PRN (09:14)
[2017-09-17] MEDS: ACETAMINOPHEN 325 MG TAB PO PRN (09:14)
--- NOTE | 2017-09-17 09:24 | HHI.PR ---
Subjective Remarks Patient says she is feeling all right. Feels like she can go home. Denies any chest pain or shortness of breath. Objective Vital Signs Date Time Temp Pulse Resp B/P (MAP) Pulse Ox O2 Delivery O2 Flow Rate FiO2 09/17/17 04:00 97.4 93 18 145/85 (105) 94 09/17/17 04:00 103 09/17/17 00:00 107 09/17/17 00:00 98.6 104 16 154/92 (112) 94 09/16/17 22:45 18 09/16/17 20:00 115 09/16/17 20:00 97 Room Air 09/16/17 20:00 98.4 93 18 174/88 (116) 93 09/16/17 17:15 97 Room Air 09/16/17 16:00 98.2 99 20 179/97 (124) 100 09/16/17 15:00 100 14 168/72 (104) 94 Nasal Cannula 2 09/16/17 14:45 97 14 171/68 (102) 95 Nasal Cannula 2 09/16/17 14:30 98.1 104 14 172/71 (104) 95 Nasal Cannula 2 09/16/17 13:45 85 12 162/74 (103) 95 09/16/17 13:00 94 17 143/93 (110) 95 09/16/17 12:45 84 16 156/86 (109) 95 09/16/17 12:30 98.7 98 13 170/96 (120) 95 09/16/17 12:30 98 09/16/17 12:00 98.8 80 20 189/95 (126) 96 I/O 09/16/17 09/16/17 09/16/17 09/17/17 09/17/17 09/17/17 07:00 15:00 23:00 07:00 15:00 23:00 Intake Total 80 ml 200 ml 240 ml 360 ml Balance 80 ml 200 ml 240 ml 360 ml Intake Oral 0 ml 240 ml 360 ml IV Total 80 ml Other 200 ml # Voids 1 3 4 # Bowel Movements 0 1 Result Diagram: 09/17/17 0545 09/15/17 0513 Objective Remarks GENERAL: Appears comfortable. Sleeping, wakes up for exam. Alert and oriented 3. SKIN: Warm and dry. HEAD: Normocephalic. EYES: No scleral icterus. No injection or drainage. NECK: Supple, trachea midline. No JVD or lymphadenopathy. CARDIOVASCULAR: Regular rate and rhythm without murmurs, gallops, or rubs. RESPIRATORY: Breath sounds equal bilaterally. No accessory muscle use. GASTROINTESTINAL: Abdomen soft, non-tender, nondistended. MUSCULOSKELETAL: No cyanosis, or edema. BACK: Nontender without obvious deformity. No CVA tenderness. A/P Assessment and Plan Ms. Murray is a pleasant 47-year-old female with a history of liver cirrhosis likely due to chronic hepatitis C, alcoholic liver disease who presents to the emergency department on 09/14/2017 due to nausea vomiting as well as frequent syncopal episodes. She was found to have microcytic hypochromic anemia with hemoglobin 7.7. She received 2 units of PRBCs by ED provider. //Nausea vomiting //Dysphagia -Etiology non-specific. -We will consult GI for an evaluation. May need a Modified Barium Swallow study as well to evaluate oropharyngeal dysphagia -Provide supportive care with Zofran = Status post EGD with gastritis. Repeat CBC ordered for tomorrow morning by GI. Discharge when cleared by GI = CBC stable. Discharge. Follow with GI as outpatient //Microcytic hypochromic anemia -Patient underwent EGD and colonoscopy in 2017. Her hemoglobin at that point was 9.8. -Patient has grade 1 esophageal varices. Will consult GI for further evaluation and further need for endoscopic studies. = Anemia improved to 9.5 yesterday after transfusion. Repeat CBC today. = Hemoglobin 10.4. Stable from yesterday. //Frequent syncopal episodes -Keep patient on Telemetry to look for any cardiac cause. - Will also check Vitamin B12 and Methylmalonic acid levels. -PT eval recommends no PT = B12 within normal limits. Pulmonic pending. Follow with primary care. Avoid cocaine, alcohol. //Tobacco abuse //Cocaine abuse //Alcohol abuse - Patient is counselled to quit substance abuse - [facility] Protocol. //Full code. SCDs. Discharge Planning Discharge tomorrow if hemoglobin is stable and patient feeling well. Cristian Narvaez MD September 17, 2017 09:24
[2017-09-17] MEDS ORDERED: PANT40TA3 PO (09:27)
--- NOTE | 2017-09-17 09:35 | HHI.DS ---
Discharge Summary Admission Date September 14, 2017 at 22:42 Discharge Date: September 17, 2017 Admitting Diagnosis GI bleed, anemia (1) Microcytic hypochromic anemia ICD Code: D50.9 - Iron deficiency anemia, unspecified (2) Polysubstance abuse ICD Code: F19.10 - Polysubstance abuse Status: Chronic (3) Cirrhosis of liver ICD Code: K74.60 - Unspecified cirrhosis of liver Status: Chronic (4) Hepatitis C ICD Code: B19.20 - Unspecified viral hepatitis C without hepatic coma Status: Chronic (5) Nausea & vomiting ICD Code: R11.2 - Nausea with vomiting, unspecified Procedures EGD. Please see report Brief History - From Admission Ms. Murray is a pleasant 47 year old female with a history of chronic hepatitis C, alcohol abuse, liver cirrhosis who presents to the emergency department due to nausea vomiting and generalized weakness. For the last 2-3 days prior to this admission, patient often experiences blackout and falls. She denies any lower extremity weakness, chest pain, fever or chills prior to her falls. Additionally she also reports odynophagia and dysphasia. Upon admission, blood pressure 181/82, pulse 112, respirations 17, temperature 99.1F, pulse oximetry 98% on 2 L of oxygen. Hemoglobin 7.7 hematocrit 25.4 MCV 73.1. Patient received 2 units of PRBCs per ED provider. CBC/BMP: 09/17/17 0545 09/15/17 0513 Significant Findings Laboratory Tests Test 09/14/17 15:22 09/14/17 22:10 09/15/17 05:13 09/15/17 08:20 Red Blood Count 3.48 MIL/MM3 (4.00-5.30) 3.85 MIL/MM3 (4.00-5.30) Hemoglobin 7.7 GM/DL (11.6-15.3) 9.5 GM/DL (11.6-15.3) Hematocrit 25.4 % (35.0-46.0) 29.8 % (35.0-46.0) Mean Corpuscular Volume 73.1 FL (80.0-100.0) 77.4 FL (80.0-100.0) Mean Corpuscular Hemoglobin 22.0 PG (27.0-34.0) 24.6 PG (27.0-34.0) Mean Corpuscular Hemoglobin Concent 30.1 % (32.0-36.0) 31.8 % (32.0-36.0) Red Cell Distribution Width 23.0 % (11.6-17.2) 21.9 % (11.6-17.2) Neutrophils (%) (Auto) 79.4 % (16.0-70.0) 74.7 % (16.0-70.0) Monocytes (%) (Auto) 8.9 % (0.0-8.0) 13.1 % (0.0-8.0) Lymphocytes # (Auto) 0.7 TH/MM3 (1.0-4.8) 0.8 TH/MM3 (1.0-4.8) Prothrombin Time 13.2 SEC (9.8-11.6) Activated Partial Thromboplast Time 20.5 SEC (24.3-30.1) Creatinine 1.11 MG/DL (0.50-1.00) Random Glucose 112 MG/DL (74-106) Total Protein 10.4 GM/DL (6.4-8.2) Alkaline Phosphatase 145 U/L (45-117) Aspartate Amino Transf (AST/SGOT) 61 U/L (15-37) Total Bilirubin 1.2 MG/DL (0.2-1.0) Estimat Glomerular Filtration Rate 52 ML/MIN (>89) 68 ML/MIN (>89) Platelet Count 144 TH/MM3 (150-450) Calcium Level 8.0 MG/DL (8.5-10.1) Test 09/15/17 14:51 09/16/17 17:00 09/17/17 05:45 Hepatitis C IgG Antibody REACTIVE (NONREACTIVE) Hemoglobin 10.7 GM/DL (11.6-15.3) 10.4 GM/DL (11.6-15.3) Hematocrit 33.8 % (35.0-46.0) 32.8 % (35.0-46.0) Mean Corpuscular Volume 77.8 FL (80.0-100.0) 77.7 FL (80.0-100.0) Mean Corpuscular Hemoglobin 24.6 PG (27.0-34.0) 24.6 PG (27.0-34.0) Mean Corpuscular Hemoglobin Concent 31.7 % (32.0-36.0) 31.7 % (32.0-36.0) Red Cell Distribution Width 21.9 % (11.6-17.2) 22.1 % (11.6-17.2) Platelet Count 142 TH/MM3 (150-450) Monocytes (%) (Auto) 16.0 % (0.0-8.0) Imaging Last Impressions Abdomen/Pelvis CT 09/14/17 1614 Signed Impressions: CONCLUSION: 1. No acute findings in the abdomen/pelvis. 2. Calcified gallstone and mildly nodular contour to the liver, similar to mul limale prior studies. Chest X-Ray 09/14/17 1529 Signed Impressions: CONCLUSION: No acute intrathoracic disease. Stable examination. Hospital Course Ms. Murray is a pleasant 47-year-old female with a history of liver cirrhosis likely due to chronic hepatitis C, alcoholic liver disease who presents to the emergency department on 09/14/2017 due to nausea vomiting as well as frequent syncopal episodes. She was found to have microcytic hypochromic anemia with hemoglobin 7.7. She received 2 units of PRBCs by ED provider. GI was consulted. Patient underwent EGD which shows gastritis, duodenal inflammation. Biopsies are pending. Anemia improved to above 10 which remained stable. Symptoms improved, patient was discharged home. Follow with GI and primary care as outpatient. For problem based summary from most recent progress note, please see below. //Nausea vomiting //Dysphagia -Etiology non-specific. -We will consult GI for an evaluation. May need a Modified Barium Swallow study as well to evaluate oropharyngeal dysphagia -Provide supportive care with Zofran = Status post EGD with gastritis. Repeat CBC ordered for tomorrow morning by GI. Discharge when cleared by GI = CBC stable. Discharge. Follow with GI as outpatient //Microcytic hypochromic anemia -Patient underwent EGD and colonoscopy in 2017. Her hemoglobin at that point was 9.8. -Patient has grade 1 esophageal varices. Will consult GI for further evaluation and further need for endoscopic studies. = Anemia improved to 9.5 yesterday after transfusion. Repeat CBC today. = Hemoglobin 10.4. Stable from yesterday. //Frequent syncopal episodes -Keep patient on Telemetry to look for any cardiac cause. - Will also check Vitamin B12 and Methylmalonic acid levels. -PT eval recommends no PT = B12 within normal limits. Pulmonic pending. Follow with primary care. Avoid cocaine, alcohol. //Tobacco abuse //Cocaine abuse //Alcohol abuse - Patient is counselled to quit substance abuse - [facility] Protocol. //Full code. SCDs. Discharge Planning Discharge tomorrow if hemoglobin is stable and patient feeling well. Pt Condition on Discharge: Good Discharge Disposition: Discharge Home Discharge Time: > 30 minutes Discharge Instructions DIET: Follow Instructions for: Heart Healthy Diet Speech Therapy-Diet Recommends: Regular Activities you can perform: Regular-No Restrictions Follow up Referrals: Gastroenterology - 1 Week with Sami Willams MD PCP Follow-up - 1 Week with Maverick Zafar DO Continued Medications: Buspirone (Buspirone) 15 Mg Tab 15 MG PO BID for Anxiety, TAB 0 Refills Dicyclomine (Bentyl) 10 Mg Cap 10 MG PO TID for abdominal discomfort, #93 CAP Folic Acid (Folic Acid) 800 Mcg Cap 800 MCG PO DAILY, CAP Furosemide (Furosemide) Unknown Strength Tab 40 MG PO DAILY, #30 TAB 0 Refills Lactulose Liq (Lactulose Liq) 10 Gm/15 Ml Soln 15 ML PO BID, ML 0 Refills Levetiracetam (Keppra) 500 Mg Tab 500 MG PO BID for Control Seizures, #60 TAB 0 Refills Levothyroxine (Levothyroxine) Unknown Strength Tab 1 TAB PO DAILY for Thyroid, #30 TAB 0 Refills Metoprolol Tartrate (Metoprolol Tartrate) 25 Mg Tab 12.5 MG PO BID for hypertension, #60 TAB Ondansetron (Zofran) Unknown Strength Tab 1 TAB PO Q6HR PRN for NAUSEA OR VOMITING, TAB 0 Refills Pantoprazole (Pantoprazole) 40 Mg Tab 40 MG PO Q12HR for gastritis, #60 TAB (This prescription has been renewed) Rifaximin (Xifaxan) 200 Mg Tab 400 MG PO Q8HR for hepatitis C, #93 TAB Sennosides (Senna Lax) 8.6 Mg Tab 17.2 MG PO Q12H PRN for MODERATE - SEVERE CONSTIPATION, #60 TAB Spironolactone (Spironolactone) 50 Mg Tab 50 MG PO DAILY, #30 TAB 0 Refills Tizanidine (Tizanidine) 4 Mg Tab 4 MG PO TID for Muscle Spasm, TAB 0 Refills Cristian Narvaez MD September 17, 2017 09:35
[2017-09-19 07:52] LABS: HCV RNA PCR IU/ML 2770000 IU/mL (Not Detected)
== END 2017-09-17 10:52 | disposition home or self-care (01) | DRG 812 ==
LOC: NEPD 15:22 → NEDA 22:42 → N04A 09-15 01:44
PROVIDERS: ADMIT Internal Medicine; ATTEND Internal Medicine
PROC: 30233N1 Transfusion of Nonautologous Red Blood Cells into Peripheral Vein, Percutaneous Approach (ICD-10-PCS; principal; 2017-09-14)
PROC: 0DB78ZX Excision of Stomach, Pylorus, Via Natural or Artificial Opening Endoscopic, Diagnostic (ICD-10-PCS; 2017-09-16)
DX: D50.9 Iron deficiency anemia, unspecified (principal); D69.6 Thrombocytopenia, unspecified; K70.30 Alcoholic cirrhosis of liver without ascites; K25.9 Gastric ulcer, unspecified as acute or chronic, without hemorrhage or perforation; K70.10 Alcoholic hepatitis without ascites; R13.10 Dysphagia, unspecified; I10 Essential (primary) hypertension; J44.9 Chronic obstructive pulmonary disease, unspecified; K21.0 Gastro-esophageal reflux disease with esophagitis; B18.2 Chronic viral hepatitis C; R55 Syncope and collapse; K80.20 Calculus of gallbladder without cholecystitis without obstruction; K31.9 Disease of stomach and duodenum, unspecified; R13.12 Dysphagia, oropharyngeal phase; M19.90 Unspecified osteoarthritis, unspecified site; F10.10 Alcohol abuse, uncomplicated; F14.10 Cocaine abuse, uncomplicated; F31.9 Bipolar disorder, unspecified; F41.9 Anxiety disorder, unspecified; F17.210 Nicotine dependence, cigarettes, uncomplicated; Y90.0 Blood alcohol level of less than 20 mg/100 ml; Z86.14 Personal history of Methicillin resistant Staphylococcus aureus infection
CPT/HCPCS: 36430; 71045; 74177; 80048; 80053; 80074; 80307; 81001; 82607; 83690; 83921; 85025; 85027; 85610; 85730; 86850; 86900; 86901; 86902; 86920; 86922; 87522; 87902; 88305; 96361; 96365; 96367; 96368; 96375; C9113; J0696; J1170; J2060; J2270; J7030; J7050; P9016; Q9967

== ENCOUNTER 2017-12-30 21:45 | Inpatient (IN) ==
--- NOTE | 2017-12-30 22:10 | ED ---
HPI General Chief Complaint: Abdominal Pain Stated Complaint: ABD Pain Time Seen by Provider: 12/30/17 22:05 Source: patient and EMS Mode of arrival: EMS Limitations: altered mental status History of Present Illness HPI narrative: 47-year-old female with previous history of hepatitis, cirrhosis , presents to the ER brought in by EMS because she has become more disoriented, she is turning more yellow according to , and having increased abdominal distention, worse than she has ever been before. She currently is fairly disoriented and not able to give me much history. She admits she has been having some episodes of vomiting although she is not sure when the last time was. She states that she has not been having much urination or making much bowel movements. Related Data Home Medications Medication Instructions Recorded Confirmed No Known Home Medications 12/30/17 12/30/17 Allergies Allergy/AdvReac Type Severity Reaction Status Date / Time *MDRO Multi-Drug Resistant AdvReac Unknown MRSA Uncoded 11/19/16 07:40 Organism Review of Systems ROS Unobtainable ROS Unobtainable: unobtainable due to mental status PMFSH History History Provided By: Patient Medical History Medical History Liver failure (Acute) Renal failure (Acute) Post hysterectomy menopause (Acute) Hepatitis (Acute) Cirrhosis (Acute) Social History Social History Substance History: No History of Abuse Second Hand Smoke Exposure: Yes Smoking Status: Current every day smoker Tobacco Type: Cigarettes How Often Do You Have a Drink Containing Alcohol: 2 to 4 times a month Recent Travel in [facility] within the Last 8 Weeks: No Recent Out of Country Travel within the Last 8 Weeks: No Exam Narrative Exam Narrative: GENERAL: Well-developed middle-age female patient currently in moderate distress. Awake, but disoriented. SKIN: Focused skin assessment warm/dry. Severely jaundiced. HEAD: Atraumatic. Normocephalic. EYES: Pupils equal and round. Anicteric. No injection or drainage. ENT: No nasal bleeding or discharge. Mucous membranes pink and moist. NECK: Trachea midline. No JVD. CARDIOVASCULAR: Regular rate and rhythm. No murmur appreciated. RESPIRATORY: No accessory muscle use. Clear to auscultation. Breath sounds equal bilaterally. GASTROINTESTINAL: Abdomen non-tender, tensely distended. MUSCULOSKELETAL: No obvious deformities. No clubbing. No cyanosis. No edema. NEUROLOGICAL: Awake and lethargic. No obvious cranial nerve deficits. Motor grossly within normal limits. Normal speech. PSYCHIATRIC: Appropriate mood and affect; insight and judgment normal. Procedures Hemaprompt Stool Procedural Steps Taken: specimen placed in appropriate test area, developer placed on specimen and control areas and controls appropriately positive and negative Hemaprompt Stool Result: positive Course Initial Documented Vital Signs Temperature 97.8 F 12/30/17 22:03 Pulse Rate 100 H 12/30/17 22:03 Respiratory Rate 20 12/30/17 22:03 Blood Pressure 107/70 12/30/17 22:03 Pulse Oximetry 98 12/30/17 22:03 Last Documented Vital Signs Temperature 97.8 F 12/30/17 22:03 Pulse Rate 90 12/30/17 22:11 Respiratory Rate 20 12/30/17 22:11 Blood Pressure 105/51 L 12/30/17 22:11 Pulse Oximetry 98 12/30/17 22:11 Medical Decision Making MDM Narrative Medical decision making narrative: Patient's lab work shows significant anemia as well with hemoglobin of 5.6, and a rectal exam was done to evaluate for any bleeding, it is Hemoccult positive. At this point, there is worried that she may have a GI bleed and this may have caused her to go into hepatic encephalopathy. The case was discussed with Dr. Irizarry who states that the patient will need octreotide as well. 2 units of blood were ordered, IV fluids were ordered, and at this point, case is discussed with Dr. Cisneros of intensive care unit for admission to the ICU, patient will need further therapy as well. Aggregate critical care time was 35 minutes. Time to perform other separately billable procedures was not included in the critical care time. My time did not include minutes spent treating any other patients simultaneously or on activities that did not directly contribute to the patient's treatment. The services I provided to this patient were to treat and/or prevent clinically significant deterioration that could result in: GI bleed, worsening anemia, dysrhythmias, hepatic failure, I provided critical care services requiring my management, as noted below: Chart data review, documentation time, medication orders and management, vital sign assessments/reviewing monitor data, ordering and reviewing lab tests, ordering and interpreting/reviewing x-rays and diagnostic studies, care of the patient and discussion of the patient with the admitting physicians. Medical Screen Exam Complete: Yes Emergency Medical Condition: Yes Differential Diagnosis Differential Diagnosis: Ascites versus SBP versus fulminant liver failure versus electrolyte abnormalities versus acute obstruction Lab Data Lab results reviewed: Yes I reviewed the patient's lab results. Result diagrams: 12/30/17 22:18 12/30/17 22:18 Lab Results 12/30/17 12/30/17 12/30/17 Range/Units 22:18 22:18 22:18 WBC 11.1 H (4.0-11.0) th/mm3 RBC 2.17 L (4.00-5.30) mil/mm3 Hgb 5.3 L* (11.6-15.3) gm/dL Hct 17.1 L* (35.0-46.0) % MCV 79.0 L (80.0-100.0) fL MCH 24.7 L (27.0-34.0) pg MCHC 31.3 L (32.0-36.0) % RDW 30.2 H (11.6-17.2) % Plt Count 146 L (150-450) th/mm3 MPV 10.0 (7.0-11.0) fL Prelim Diff (Auto) Slide review pending Neut % (Auto) 78.0 H (16.0-70.0) % Lymph % (Auto) 4.7 L (9.0-44.0) % Bailey % (Auto) 16.7 H (0.0-8.0) % Eos % (Auto) 0.6 (0.0-4.0) % Baso % (Auto) 0.0 (0.0-2.0) % Neut # (Auto) 8.6 H (1.8-7.7) th/mm3 Lymph # (Auto) 0.5 L (1.0-4.8) th/mm3 Bailey # (Auto) 1.9 H (0.0-0.9) th/mm3 Eos # (Auto) 0.1 (0.0-0.4) th/mm3 Baso # (Auto) 0.0 (0.0-0.2) th/mm3 WBC Differential . Diff Scan Auto diff confirmed Differential Comment . Platelet Estimate Normal (Normal) Platelet Morphology Normal (Normal) Target Cells 1+ H (None) Ovalocytes 1+ H (None) PT 21.5 H (9.8-11.6) sec INR 2.1 Ratio APTT 36.2 H (24.3-30.1) sec Ammonia 133 H (11-32) mcmol/L Discharge Plan Discharge Disposition Patient Disposition: 30 Still Patient Discharge Condition Condition: Critical Discharge Details Anticipated Discharge Date: 12/30/17 Diagnosis: Liver failure, Acute GI bleeding, Anemia Physicians Team ED Provider: Carlton Estrella Rxs /Orders / Referrals /Forms Prescriptions: No Action No Known Home Medications RF: 0 Discharge Interventions Interventions: Vital Signs Last Done: 12/30/17 22:11 Status ED Status: Admitted Patient
[2017-12-30 22:32] LABS: Eos # (Auto) 0.1 th/mm3 (0.0-0.4); Eos % (Auto) 0.6 % (0.0-4.0); Lymph # (Auto) 0.5 th/mm3 (1.0-4.8); Lymph % (Auto) 4.7 % (9.0-44.0); Mean Corpuscular HGB Conc 31.3 % (32.0-36.0); Mean Corpuscular Hemoglobin 24.7 pg (27.0-34.0); Mono # (Auto) 1.9 th/mm3 (0.0-0.9); Mono % (Auto) 16.7 % (0.0-8.0); Neut # (Auto) 8.6 th/mm3 (1.8-7.7); Platelet Count 146 th/mm3 (150-450); Red Blood Count 2.17 mil/mm3 (4.00-5.30); Red Cell Distribution Width 30.2 % (11.6-17.2); White Blood Count 11.1 th/mm3 (4.0-11.0)
[2017-12-30 22:38] LABS: Hemoglobin 5.3 gm/dL (11.6-15.3)
[2017-12-30 22:39] LABS: Hematocrit 17.1 % (35.0-46.0)
[2017-12-30 22:50] LABS: Activated Partial Thrombo Time 36.2 sec (24.3-30.1); INR 2.1 Ratio; Prothrombin Time 21.5 sec (9.8-11.6)
[2017-12-30] MEDS ORDERED: Pantoprazole Inj 40 MG Vial IV.PUSH ONE (22:57)
[2017-12-30 23:00] LABS: Ovalocytes 1+; Platelet Estimate Normal (Normal); Platelet Morphology Normal (Normal); Target Cells 1+
[2017-12-30] MEDS ORDERED: Sod Chloride 0.9% Inj 1,000 ML IV.SIG SCH (23:00)
[2017-12-30] MEDS ORDERED: Octreotide Inj 50 MCG/ML Vial IV.PUSH ONE (23:02)
[2017-12-30] MEDS ORDERED: Potassium Chloride 25 MEQ Effervescent Tablet PO PRN (23:11)
[2017-12-30] MEDS ORDERED: Magnesium Sulfate Inj 2 GM in Sodium Chlor 0.9% Inj 96 ML IV.SIG PRN (23:11)
[2017-12-30] MEDS ORDERED: Potassium Chlor 40 mEq Premix 40 MEQ/100 ML PIGGYBACK IV.SIG PRN ×2 (23:11)
[2017-12-30] MEDS ORDERED: Potassium Phosphate Inj 30 MMOL in Sodium Chlor 0.9% Inj 250 ML IV.SIG PRN (23:11)
[2017-12-30] MEDS ORDERED: Potassium Phosphate 500 MG Soluble Tablet PO PRN (23:11)
[2017-12-30] MEDS ORDERED: Sodium Phosphate Inj 30 MMOL in Sodium Chlor 0.9% Inj 250 ML IV.SIG PRN (23:11)
[2017-12-30] MEDS ORDERED: Dextrose 50% in Water 50 ML Vial IV.PUSH PRN (23:15)
--- NOTE | 2017-12-30 23:18 | P.HPCC ---
History of Present Illness Service: Critical care medicine Chief Complaint: Altered mental status History of Present Illness: This is a 47-year-old female with a history of hepatitis C cirrhosis and significant medication noncompliance who has been recently admitted for GI bleeding from gastric ulcers. She represents today with fatigue and altered mental status. She is quite somnolent on exam and no additional information is available from patient. She does arouse and protect her airway, but can only follow simple yes and no commands. She is quite starkly jaundiced. In the emergency department she has a hemoglobin of 5 which is below her baseline around 10. She was emergently given 2 units packed red blood cells. She does have a history of GI bleeds. Her ammonia is elevated greater than 100. She has acute kidney injury and evidence of urinary tract infection. No additional aspiration is available from the patient due to her altered mental status. Review systems is unobtainable. Inpatient Certification: I certify that the inpatient services were ordered in accordance with Medicare regulations governing the order. This includes certification that hospital inpatient services are reasonable and necessary and in the case of services not specified as inpatient-only under 42 CFR 419.22(n), that they are appropriately provided as inpatient services in accordance to with the 2-midnight benchmark under 43 CFR 412.3(e) Estimated Total Length of Stay (Days): 7 Plans for Post Hospital Care: Not yet determined Review of Systems unobtainable due to mental condition, unobtainable due to mental status PMFSH - History History Provided By: Medical Record - Medical / Surgical Hx Neg / Unobtainable Medical Problems Denied: Unable to Obtain Surgical History: Unable to Obtain - Medical History Medical History: Medical History (Last Reviewed 12/31/17 @ 01:50 by Romulo Chatterjee MD) Liver failure (Acute) Renal failure (Acute) Post hysterectomy menopause (Acute) Hepatitis (Acute) Cirrhosis (Acute) - Tobacco History Second Hand Smoke Exposure: Yes Tobacco Use In Past 30 Days: Yes Smoking Status: Current every day smoker Tobacco Type: Cigarettes - Alcohol History How Often Do You Have a Drink Containing Alcohol: 2 to 4 times a month - Substance Use History Substance History: No History of Abuse - Travel History Recent Travel in the [place] Within the Last 8 Weeks: No Recent Travel Out of the Country Within the Last 8 Weeks: No - Immunization History Tetanus Immunization: >5 Years Hx Influenza Vaccine This Season: No Medications and Allergies Active Medications: Active Medications Albuterol (Duoneb Neb (Prn)) 1 ampul NEB Q2HR NEB PRN PRN Reason: WHEEZING Chlorhexidine Gluconate (Chlorhexidine 2% Cloth) 3 pack TOPICAL DAILY@0400 MARGARETTE Stop: 01/05/18 03:59 Chlorhexidine Gluconate (Chlorhexidine 2% Cloth) 3 pack TOPICAL DAILY@0400 PRN PRN Reason: Extra cloth needed Stop: 01/05/18 03:59 Dextrose (D50w Vial) 50 ml IV.PUSH UNSCH PRN PRN Reason: PER HYPOGLYCEMIA PROTOCOL Glucagon (Glucagon Inj) 1 mg OTHER PRN PRN PRN Reason: for Hypoglycemia Protocol Heparin Sodium (Porcine) (Heparin Inj) 5,000 units SQ Q8HR MARGARETTE Sodium Chloride (Ns Inj) 250 mls @ 15 mls/hr IV.SIG ONCE MARGARETTE Stop: 12/31/17 15:39 Pantoprazole Sodium 80 mg/ (Sodium Chloride) 100 mls @ 10 mls/hr IV.CONT CONT MARGARETTE Sodium Chloride (Ns Inj) 1,000 mls @ 0 mls/hr IV.SIG BOLUS MARGARETTE Ceftriaxone Sodium 1,000 mg/ (Sodium Chloride) 100 mls @ 200 mls/hr IV.SIG Q24H MARGARETTE Stop: 01/04/18 23:44 Magnesium Sulfate Inj 4 gm/ (Sodium Chloride) 100 mls @ 50 mls/hr IV.SIG UNSCH PRN PRN Reason: For Magnesium 0.9 - 1.1 mg/dL Magnesium Sulfate Inj 2 gm/ (Sodium Chloride) 100 mls @ 50 mls/hr IV.SIG UNSCH PRN PRN Reason: For Magnesium 1.2 - 1.6 mg/dL Potassium Chloride (Kcl 40 Meq Premix Inj) 40 meq in 100 mls @ 25 mls/hr IV.SIG Q2H PRN PRN Reason: For Potassium 2.8 - 3.2 mEq/L Potassium Chloride (Kcl 20 Meq Premix Inj) 20 meq in 100 mls @ 50 mls/hr IV.SIG Q2H PRN PRN Reason: For Potassium 3.3 - 3.5 mEq/L Potassium Chloride (Kcl 40 Meq Premix Inj) 40 meq in 100 mls @ 25 mls/hr IV.SIG UNSCH PRN PRN Reason: For Potassium 3.3 - 3.5 mEq/L Potassium Chloride (Kcl 20 Meq Premix Inj) 20 meq in 100 mls @ 50 mls/hr IV.SIG Q2H PRN PRN Reason: For Potassium 2.8 - 3.2 mEq/L Potassium Phosphate 30 mmol/ (Sodium Chloride) 260 mls @ 42 mls/hr IV.SIG UNSCH PRN PRN Reason: SEE LABEL COMMENTS Sodium Chloride (Ns Inj) 1,000 mls @ 84 mls/hr IV.CONT .[id number] MARGARETTE Sodium Phosphate 30 mmol/ (Sodium Chloride) 260 mls @ 42 mls/hr IV.SIG UNSCH PRN PRN Reason: For Phosphorus < 2.5 mg/dL Insulin Human Regular (Novolin R Correctional Sugar Inj) 0 units SQ Q6HR MARGARETTE; Protocol Lactulose (Lactulose Liq) 30 ml PO Q6H MARGARETTE Magnesium Oxide (Mag-Ox) 800 mg PO UNSCH PRN PRN Reason: For Magnesium 1.2 - 1.6 mg/dL Ondansetron HCl (Zofran Inj) 4 mg IV.PUSH Q6H PRN PRN Reason: NAUSEA OR VOMITING Potassium Bicarb/Potassium Chloride (K-Lyte Cl Eff) 50 meq PO UNSCH PRN PRN Reason: For Potassium 3.3 - 3.5 mEq/L Potassium Phosphate (K-Phos Original) 2,000 mg PO Q4H PRN PRN Reason: Phosphorus Less Than 2.5 mg/dL Potassium Phosphate (K-Phos Original) 2,000 mg PO UNSCH PRN PRN Reason: SEE LABEL COMMENTS Sodium Chloride (Ns Flush) 2 ml IV.FLUSH PRN PRN PRN Reason: FLUSH AFTER USING IV ACCESS Sodium Chloride (Ns Flush) 2 ml IV.FLUSH UNSCH PRN PRN Reason: FLUSH AFTER USING IV ACCESS Allergies Allergy/AdvReac Type Severity Reaction Status Date / Time *MDRO Multi-Drug Resistant AdvReac Unknown MRSA Uncoded 11/19/16 07:40 Organism Home Medications Medication Instructions Recorded Confirmed Type No Known Home Medications 12/30/17 12/30/17 History Results - Labs CBC & Chem 7: 12/30/17 22:18 12/30/17 22:18 Labs: Short CBC 12/30/17 Range/Units 22:18 WBC 11.1 H (4.0-11.0) th/mm3 Hgb 5.3 L* (11.6-15.3) gm/dL Hct 17.1 L* (35.0-46.0) % Plt Count 146 L (150-450) th/mm3 Exam Vital signs: Vital Signs 12/30/17 22:03 12/30/17 22:11 Temperature 36.6 C Pulse Rate 100 H 90 Respiratory Rate 20 20 Blood Pressure 107/70 105/51 L Pulse Oximetry 98 98 Intake & Output 12/30/17 12/30/17 12/31/17 06:59 18:59 06:59 Weight 90.718 kg Narrative: GENERAL: Middle-aged female, lying in bed, significantly altered mental status, arousable to voice but does not follow commands. Quite notably jaundiced HEENT: Normocephalic. Atraumatic. Pupils equal, round, reactive, conjugate. Significant scleral icterus is present. Mucous membranes are moist NECK: Trachea is midline. There is no JVD. CHEST: Equal chest rise. Room air. CARDIOVASCULAR: Normal rate, regular rhythm. Sinus. ABDOMEN: Soft, significantly distended with a positive fluid wave. Mildly tender to palpation diffusely. No guarding. No rebound. MUSCULOSKELETAL: Pulses 2+. No peripheral edema. NEUROLOGICAL: RASS -3. Moves all extremities. Withdraws to pain. Does not follow commands. Septic Shock Reassessment Septic shock perfusion: reassessment completed Caprini VTE Risk Assessment Caprini VTE Risk Assessment: Moderate/High Risk (score >= 2) Caprini Risk Assessment Model: Point Value = 1 Point Value = 2 Point Value = 3 Point Value = 5 Age 41-60 Minor surgery BMI > 25 kg/m2 Swollen legs Varicose veins or History of unexplained or recurrent spontaneous Oral contraceptives or hormone replacement Sepsis (< 1 month) Serious lung disease, including pneumonia (< 1 month) Abnormal pulmonary function Acute myocardial infarction Congestive heart failure (< 1 month) History of inflammatory bowel disease Medical patient at bed rest Age 61-74 Arthroscopic surgery Major open surgery (> 45 min) Laparoscopic surgery (> 45 min) Malignancy Confined to bed (> 72 hours) Immobilizing plaster cast Central venous access Age >= 75 History of VTE Family history of VTE Factor V Leiden Prothrombin [id number] Lupus anticoagulant Anticardiolipin antibodies Elevated serum homocysteine Heparin-induced thrombocytopenia Other congenital or acquired thrombophilia Stroke (< 1 month) Elective arthroplasty Hip, pelvis, or leg fracture Acute spinal cord injury (< 1 month) Prophylaxis Regimen: Total Risk Factor Score Risk Level Prophylaxis Regimen 0-1 Low Early ambulation 2 Moderate Order ONE of the following: *Sequential Compression Device (SCD) *Heparin 5000 units SQ BID 3-4 Higher Order ONE of the following medications: *Heparin 5000 units SQ TID *Enoxaparin/Lovenox 40 mg SQ daily (WT < 150 kg, CrCl > 30 mL/min) *Enoxaparin/Lovenox 30 mg SQ daily (WT < 150 kg, CrCl > 10-29 mL/min) *Enoxaparin/Lovenox 30 mg SQ BID (WT < 150 kg, CrCl > 30 mL/min) AND/OR *Sequential Compression Device (SCD) 5 or more Highest Order ONE of the following medications: *Heparin 5000 units SQ TID (Preferred with Epidurals) *Enoxaparin/Lovenox 40 mg SQ daily (WT < 150 kg, CrCl > 30 mL/min) *Enoxaparin/Lovenox 30 mg SQ daily (WT < 150 kg, CrCl > 10-29 mL/min) *Enoxaparin/Lovenox 30 mg SQ BID (WT < 150 kg, CrCl > 30 mL/min) AND *Sequential Compression Device (SCD) Assessment and Plan - Assessment and Plan Plan: Assessment: 47-year-old female with HCV cirrhosis medication noncompliance with history of GI bleeds presents with likely recurrent GI bleed and significant hepatic encephalopathy. Admit to ICU. We will consult gastroenterology and increase her lactulose. Will empirically cover her with Rocephin. Critically ill with multiorgan dysfunction at this time. Plan by systems: Neurologic: Acute metabolic encephalopathy Acute hepatic encephalopathy Frequent neurochecks Avoid long-acting sedatives Increase lactulose to 4 times daily Start rifaximin Respiratory: Aggressive pulmonary toilet Wean oxygen by nasal cannula for goal SPO2 greater than 90% Head of bed elevated As needed nebs Cardiovascular: Keep on telemetry Renal: Acute kidney injury superimposed on chronic renal insufficiency, unknown stage Place Pena -- Strict I/Os Daily BMP FEN/GI: HCV cirrhosis Acute liver dysfunction superimposed on end-stage liver disease GI bleeding Severe hypokalemia Severe hypocalcemia Severe acute protein calorie malnutrition ICU electrolyte protocol Aggressive electrolyte replacement Gastroneurology consult Trend H&H Daily CMP N.p.o. Protonix drip We will not placed on octreotide drip as the patient has recent EGD and imaging suggestive that she does not have variceal disease Heme/ID: Anemia secondary to acute blood loss Coagulopathy secondary to end-stage liver disease Urinary tract infection Rocephin for UTI and for SBP prophylaxis 2 units PRBC Trend H&H Daily INR May need diagnostic paracentesis in the near future, will hold off for now Endocrine: -- SSI Prophylaxis: GI Prophylaxis Protonix drip DVT Prophylaxis -- SCDs Hold pharmacologic DVT prophylaxis in the setting of GI bleeding Lines: Peripheral IVs Pena Dispo: Admit ICU. Critically ill. This patient remains critically ill with one or more organ systems which are or may become a threat to life. I have spent in excess of 31 minutes discontinuously in the care and management of this patient. This time is exclusive of procedures, and includes, but is not limited to, evaluation of the patient, review of the medical record, discussions with family, consultants, nursing staff, or respiratory therapy, and documentation in the medical record.
[2017-12-30] MEDS: Pantoprazole Inj 80 MG in Sodium Chlor 0.9% Inj 100 ML IV.CONT SCH (23:34)
[2017-12-30 23:37] LABS: Amorphous Sediment,Urine Few /hpf; Bacteria,Urine Many /hpf; Bilirubin,Urine Moderate (Negative); Clarity,Urine Cloudy (Clear); Color,Urine Amber (Yellw/Straw); Glucose,Urine (UA) 50 mg/dL (Negative); Hyaline Casts,Urine 78 /lpf (0-3); Leukocyte Esterase,Urine Trace (Negative); Mucus,Urine Few /lpf (Occasional); Nitrite,Urine Positive (Negative); Specific Gravity,Urine 1.015 (1.002-1.035); Squamous Epithelial Cell,Urine 1 /hpf (0-5); Urobilinogen,Urine 4 or Greater mg/dL (Less than 2)
[2017-12-30 23:38] LABS: Ictotest,Urine Positive (Negative)
[2017-12-30] MEDS: Sod Chloride 0.9% Inj 1,000 ML IV.CONT SCH (23:43)
[2017-12-31 00:03] LABS: Albumin 1.8 g/dL (3.4-5.0); Calcium 5.4 mg/dL (8.5-10.1); Carbon Dioxide 26.2 meq/L (21.0-32.0); Total Protein 7.3 g/dL (6.4-8.2)
[2017-12-31 00:06] LABS: Potassium 2.2 meq/L (3.5-5.1)
[2017-12-31] MEDS: Insulin NovoLIN Regular Correctional Sugar Inj SQ SCH ×4 (00:08→19:06)
[2017-12-31] MEDS: Potassium Chlor 20 mEq Premix 20 MEQ/100 ML PIGGYBACK IV.SIG PRN ×5 (00:31→19:06)
--- NOTE | 2017-12-31 01:26 | CT ---
EXAM DATE: 12/31/2017 1:16 AM EDT AGE/SEX: 47 years / Female INDICATIONS: Abdominal distention and pain. CLINICAL DATA: This is the patient's initial encounter. Patient reports that signs and symptoms have been present for 1 day and indicates a pain score of 4/10. MEDICAL/SURGICAL HISTORY: Cirrhosis. Hepatitis. Liver failure. Hysterectomy. ORAL CONTRAST: No oral contrast ingested. RADIATION DOSE: 14.44 CTDI (mGy) COMPARISON: [facility] – [place], CT ABDOMEN & PELVIS W CONTRAST, 09/14/2017. . TECHNIQUE: Multiple contiguous axial images were obtained through the abdomen and pelvis following b olus infusion of 98 ml Omnipaque 350 (iohexol) nonionic water-soluble contrast as a single exam dos e. No oral contrast ingested. Using automated exposure control and adjustment of the mA and/or kV ac cording to patient size, radiation dose was kept as low as reasonably achievable to obtain optimal di agnostic quality images. DICOM format image data is available electronically for review and comparis on. FINDINGS: Interval development of a moderate amount of ascites in the abdomen tracking into the pelvi s; no ascites was seen on prior CT in August 2017. Lower Lungs: The visualized lower lungs are clear. Liver: Similar appearance to the liver when compared to prior CT scan with nodular surface contour. N o focal lesions seen. No biliary ductal dilatation. A calcified gallstone near the neck is similar in appearance to prior CT scans. Spleen: Homogeneous density without enlargement. Pancreas: Unremarkable without mass or calcification. Kidneys: Normal in size and shape. No evidence of mass or hydronephrosis. Adrenal Glands: Unremarkable. Aorta: The aorta and proximal iliac vessels are grossly unremarkable without aneurysmal dilation. Bowel/Mesentery: No dilated loops of small or large bowel. Abdominal Wall: Small collateral vessels extending from the ligamentum venosum to the left inguinal region.. Retroperitoneum: No evidence of adenopathy in the retrocrural, para-aortic, or deep pelvic regions. Bladder: Pena catheter in a nondistended urinary bladder. Reproductive Organs: No abnormal masses or calcifications seen. Inguinal: The inguinal region is unremarkable without evidence of adenopathy. Bony Structures: Unremarkable. CONCLUSION: 1. Interval development of a moderate amount of ascites in the abdomen and pelvis. 2. Stable gallstones and nodular contour to the liver. Electronically signed by: Anam Richards MD 12/31/2017 1:25 AM EDT
[2017-12-31] MEDS ORDERED: Potassium Bicarbonate 25 MEQ Effervescent Tablet PO ONE (01:48)
[2017-12-31] MEDS ORDERED: Calcium Chloride Inj 2 GM in Dextrose 5% in Water Inj 100 ML IV.SIG ONE ×2 (01:48)
[2017-12-31] MEDS: Sodium Chlor 0.9% Inj 250 ML IV.SIG SCH ×2 (02:46→03:35)
[2017-12-31] MEDS ORDERED: Chlorhexidine Gluconate 2% 1 Pack (2 Cloths) TOPICAL PRN (04:00)
[2017-12-31] MEDS: Chlorhexidine Gluconate 2% 1 Pack (2 Cloths) TOPICAL SCH (04:10)
[2017-12-31] MEDS ORDERED: Heparin - SQ 10,000 UNITS/ML Vial SQ SCH (06:00)
--- NOTE | 2017-12-31 08:44 | P.PNCC ---
Subjective Subjective Remarks/Hospital Course: 47yF with history of hepatitis C and cirrhosis, non-compliant with medications, recent admission in August for UGIB from gastric ulcers presenting with altered mental status and fatigue. The patient was somnolent on arrival and initial HPI was limited due to altered mental status; however, this morning, the patient is awake and alert, only mildly confused. She says that she's been having epigastric "aching" abdominal pain for the past several weeks, and that her noticed that "my skin and my eyes were yellow" yesterday so he convinced her to come to the hospital. She says that she only takes lactulose "when I get really bad" and has not been having stools for the past week. Denies hematemesis, black/ tarry/ bloody stools. She was found to have SUKHJINDER, UTI , anemia requiring transfusions (Hg of 5), and profound hypokalemia (K+ 2.2). Objective Vital Signs / I&O: Vital Signs 12/30/17 22:03 12/30/17 22:11 12/30/17 23:11 Temperature 97.8 F Pulse Rate 100 H 90 88 Respiratory Rate 20 20 20 Blood Pressure 107/70 105/51 L 104/57 L Pulse Oximetry 98 98 12/31/17 00:00 12/31/17 01:00 12/31/17 02:03 Temperature Pulse Rate 92 H 80 Respiratory Rate 20 20 Blood Pressure 112/68 118/61 Pulse Oximetry 98 12/31/17 02:09 12/31/17 02:11 12/31/17 02:14 Temperature 97.7 F 98.0 F 97.7 F Pulse Rate 77 74 75 Respiratory Rate 13 20 13 Blood Pressure 118/64 123/61 118/64 Pulse Oximetry 97 97 12/31/17 02:27 12/31/17 02:29 12/31/17 04:38 Temperature 98.0 F 98.0 F Pulse Rate 78 78 74 Respiratory Rate 20 20 20 Blood Pressure 138/71 138/71 152/84 H Pulse Oximetry 12/31/17 05:15 12/31/17 07:06 12/31/17 07:49 Temperature 98.1 F Pulse Rate 81 84 Respiratory Rate 20 14 14 Blood Pressure 149/80 H 145/83 H Pulse Oximetry 97 12/31/17 08:04 Temperature Pulse Rate Respiratory Rate Blood Pressure Pulse Oximetry 95 Intake & Output 12/30/17 12/31/17 12/31/17 18:59 06:59 18:59 Intake Total 1520 / 1520 800 / 800 Output Total 450 / 450 Balance 1070 / 1070 800 / 800 Weight 90.718 kg 79.8 kg Intake: IV 1520 / 1520 Calcium Chloride Inj 2 GM In 120 / 120 D5W Inj 100 ML @ 120 mls/hr IV. SIG ONCE ONE Rx#:[id number] KCl 20 mEq Premix Inj 20 meq In 300 / 300 100 ml @ 50 mls/hr IV.SIG Q2H PRN Rx#:[id number] NS Inj 1,000 ML @ Wide Open IV. 1000 / 1000 SIG BOLUS MARGARETTE Rx#:[id number] Rocephin Inj 1,000 MG In NS Inj 100 / 100 100 ML @ 200 mls/hr IV.SIG Q24H MARGARETTE Rx#:[id number] Intake (Blood Product) Amt 0 / 0 800 / 800 Rbc As-3 Leukoreduced Unit 0 / 0 400 / 400 [id number] Rbc As-3 Leukoreduced Unit 0 / 0 400 / 400 [id number] Output: Urine Amount (Catheter) 450 / 450 Indwelling Urethral Catheter 450 / 450 Other: Weight On Admission 79.8 kg Result Diagrams: 12/30/17 22:18 12/30/17 22:18 Objective Remarks: GEN: Ill-appearing female sitting up in bed, no acute distress HEENT: (+) scleral icterus, no nystagmus, PERRL NECK: No JVD CARDIO: Regular rate and rhythm RESP: Diminished bibasilar breath sounds ABD: Soft, moderately distended, (+) fluid wave, mild diffuse tenderness, no guarding or rebound EXT: Trace lower extremity edema SKIN: Significant jaundice NEURO: A&Ox3, appears mildly confused but answers questions appropriately, forgetful. No tremor, subtle asterixis. PSYCH: Appropriate affect Assessment and Plan - Assessment and Plan Plan: Assessment: 47-year-old female with HCV cirrhosis medication noncompliance with history of GI bleeds presents with likely recurrent GI bleed and significant hepatic encephalopathy. Admit to ICU. We will consult gastroenterology and increase her lactulose. Critically ill with multiorgan dysfunction at this time. Plan by systems: Neurologic: Acute metabolic encephalopathy Acute hepatic encephalopathy Frequent neuro checks Avoid long-acting sedatives Increase lactulose to 4 times daily, rifaximin started on admission; mental status improving Monitor for signs of alcohol withdrawal, unclear if patient is still abusing EtOH Thiamine supplementation, MVI Respiratory: Aggressive pulmonary toilet Wean oxygen by nasal cannula for goal SPO2 greater than 90% Head of bed elevated PRN nebs Cardiovascular: Keep on telemetry Renal: Acute kidney injury superimposed on chronic renal insufficiency, unknown stage Place Pena -- Strict I/Os Daily BMP FEN/GI: HCV cirrhosis Acute liver dysfunction superimposed on end-stage liver disease GI bleeding Severe hypokalemia Severe hypocalcemia Severe acute protein calorie malnutrition ICU electrolyte protocol Aggressive electrolyte replacement, check Mg++ GI consult-- Patient is now a Child's C cirrhotic (had been B on discharge in August) with MELD score of 30 (had been a MELD of 11 on last discharge) Lactulose and rifaximin as noted above, recheck ammonia tomorrow Trend H&H, s/p 2 U PRBCs N.p.o. Protonix drip We will not placed on octreotide drip as the patient has recent EGD and imaging suggestive that she does not have variceal disease Heme/ID: Anemia secondary to acute blood loss Coagulopathy secondary to end-stage liver disease Urinary tract infection Will broaden antibiotics to zosyn for gram negative coverage until ID returns on blood/ urine cultures s/p 2 units PRBC Trend H&H Daily INR May need diagnostic/therapeutic paracentesis in the near future, will hold off for now Endocrine: -- SSI Prophylaxis: GI Prophylaxis Protonix drip DVT Prophylaxis -- SCDs Hold pharmacologic DVT prophylaxis in the setting of GI bleeding Lines: Peripheral IVs Pena Dispo: ICU. Remains critically ill. Counseling/ Coordination of Care: Total critical care time spent is 35 minutes. This includes examining the patient, gathering history from someone other than the patient (i.e. chart review), discussing the patient's care with other providers, serial monitoring of H/H, management of life-threatening electrolyte abnormalities, management of acute hepatic encephalopathy, ordering and interpreting laboratory values, re- evaluation at frequent intervals, and documentation. Amount of time is separate from teaching, counseling the patient and/or family, and exclusive of procedures. Code Status: Full
[2017-12-31] MEDS: Piperacil/Tazo 3.375 GM Premix 50 ML IV.SIG SCH ×3 (09:00→20:33)
[2017-12-31] MEDS: Pantoprazole Inj 80 MG in Sodium Chlor 0.9% Inj 100 ML IV.CONT SCH ×2 (10:00→21:02)
[2017-12-31] MEDS: Multivit/Folic Acid/Minerals Chewable Tablets CHEW SCH (11:00)
[2017-12-31] MEDS: Sod Chloride 0.9% Inj 1,000 ML IV.CONT SCH (11:47)
[2017-12-31 11:49] LABS: Hematocrit 26.9 % (35.0-46.0); Mean Corpuscular HGB Conc 33.6 % (32.0-36.0); Mean Corpuscular Hemoglobin 27.6 pg (27.0-34.0); Mean Corpuscular Volume 82.3 fL (80.0-100.0); Mean Platelet Volume 9.1 fL (7.0-11.0); Platelet Count 128 th/mm3 (150-450); Red Blood Count 3.27 mil/mm3 (4.00-5.30); Red Cell Distribution Width 23.5 % (11.6-17.2); White Blood Count 7.5 th/mm3 (4.0-11.0)
[2017-12-31 12:41] LABS: Eosinophils 2 % (0-4); Lymphocytes 10 % (9-44); Metamyelocytes 2 % (0-1); Monocytes 2 % (0-8)
[2017-12-31 12:42] LABS: Dimorphic RBC Present; Platelet Morphology Normal (Normal)
--- NOTE | 2017-12-31 12:43 | MB ---
cc: Juan Manuel Davidson MD DATE: 12/31/2017 TYPE OF CONSULTATION: GI consult. REASON FOR CONSULTATION: GI bleeding. HISTORY OF PRESENT ILLNESS: This is a 47-year-old female patient with a past medical history of liver cirrhosis secondary to hepatitis C and alcohol use. The patient is noncompliant with her medications and noncompliant with her medical appointments, who also recently became homeless, living with friends. She was recently admitted in August of this year with GI bleeding and gastric ulcer. At that time, she had an upper endoscopy that did not show any varices. At this time, she presented with fatigue, change in mental status, not arousable easily, but able to protect her airway. At that time in the emergency room, she was checked for routine labs and found to have a hemoglobin of 5. At discharge she was 10 back in 08/2017. The patient received 2 units of blood and received large amount of lactulose. The patient is currently alert and awake and responding to commands easily. Her initial ammonia level was 100. Repeat ammonia level is still pending. Other than that, the patient appeared to have some kind of evidence of acute kidney injury and possible urinary tract infection. Gastrointestinal consulted for evaluation of this anemia. The patient herself denies any hematemesis. Denies any dark or black stools. Denies any significant abdominal pain, although she does complain of worsening of ascites where she had last paracentesis done over a year ago. PAST MEDICAL HISTORY: Hepatitis C, liver cirrhosis, alcohol abuse. PAST SURGICAL HISTORY: Hysterectomy. PSYCHOSOCIAL HISTORY: She lives currently with her friend. She is a tobacco abuser and she drinks alcohol heavily. Denies any substance abuse. MEDICATIONS AT HOME: She was not taking any of her medications including her Lactulose. ALLERGIES: NO KNOWN DRUG ALLERGIES. FAMILY HISTORY: Unremarkable. REVIEW OF SYSTEMS: All negative other than ones mentioned in the history of present illness. PHYSICAL EXAMINATION: GENERAL: The patient appeared to be lethargic, but awake, alert and oriented, hemodynamically stable. HEAD AND NECK: Showed deep jaundice. No lymphadenopathy. No thyromegaly. CHEST: Clear to auscultation bilaterally. No crackles or wheezes. CARDIOVASCULAR: Regular rate and rhythm. ABDOMEN: Showed tense ascites. Unable to palpate for liver or spleen and no masses. EXTREMITIES: Showed +1 edema. NEUROLOGIC: The patient is alert and awake. Nonfocal. No motor or sensory deficits. LABORATORY DATA: Showed hemoglobin of 5.3, hematocrit 17.1, indices were low. Coagulation showed INR of 2.1, PTT of 36.1. Her total bilirubin is 24.5, AST and ALT elevated. Alkaline phosphatase of 132. CT showed ascites in the abdomen and pelvis, gallstones within the gallbladder and nodular liver. ASSESSMENT AND PLAN: This is a 47-year-old female patient with the following problems: 1. Anemia with history of gastrointestinal bleeding in the recent past, status post endoscopy in August 2017 that did not show any evidence of varices. The patient at the current time is not exhibiting any signs of active bleeding. 2. Hepatitis C, never been treated in the past. 3. 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 The patient is not a candidate for liver transplantation with the history of active alcohol use. 4. History of recurrent ascites, status post paracentesis several months ago and she is currently with the ascites again. 5. History of alcohol use and abuse. 6. Electrolyte imbalance with hypokalemia. 7. Hypercoagulable state with increasing PT and PTT secondary to chronic liver disease. RECOMMENDATIONS: I agree with the management plan by the critical care team, will need a blood transfusion to correct her severe anemia. The patient will need also a high dose proton pump inhibitor and no need for Sandostatin for the time being knowing that recent endoscopy did not show varices. Other than that, the patient also will need to have FFP, correction of her electrolyte imbalance. At certain point if the patient continued to bleed will need to have repeat an upper endoscopy. Also, the patient will need a paracentesis. We will follow up with you. Thank you for the consultation. MD BERTO Marley/tay , 11:43 AM , 11:55 AM
[2017-12-31 13:13] LABS: Albumin 1.8 g/dL (3.4-5.0); Calcium 6.5 mg/dL (8.5-10.1); Carbon Dioxide 22.7 meq/L (21.0-32.0); Magnesium 0.7 mg/dL (1.5-2.5); Phosphorus 4.1 mg/dL (2.5-4.9); Potassium 3.3 meq/L (3.5-5.1); Total Protein 7.3 g/dL (6.4-8.2)
[2017-12-31] MEDS ORDERED: Magnesium Sulfate Inj 2 GM in Sodium Chlor 0.9% Inj 96 ML IV.SIG ONE (13:59)
[2017-12-31] MEDS ORDERED: Magnesium Sulfate Inj 4 GM in Sodium Chlor 0.9% Inj 92 ML IV.SIG ONE (13:59)
[2017-12-31] MEDS ORDERED: Calcium Gluconate Inj 1 GM in Sodium Chlor 0.9% Inj 100 ML IV.SIG ONE (14:00)
[2017-12-31 17:11] LABS: Hematocrit 28.7 % (35.0-46.0); Hemoglobin 9.2 gm/dL (11.6-15.3)
[2017-12-31 17:27] LABS: INR 1.9 Ratio; Prothrombin Time 19.4 sec (9.8-11.6)
[2017-12-31 21:25] LABS: Calcium 6.5 mg/dL (8.5-10.1); Magnesium 2.1 mg/dL (1.5-2.5)
[2017-12-31 21:28] LABS: Hematocrit 27.5 % (35.0-46.0); Hemoglobin 8.5 gm/dL (11.6-15.3); Mean Corpuscular Hemoglobin 25.8 pg (27.0-34.0); Mean Corpuscular Volume 83.8 fL (80.0-100.0); Mean Platelet Volume 9.9 fL (7.0-11.0); Platelet Count 116 th/mm3 (150-450); Red Blood Count 3.29 mil/mm3 (4.00-5.30); Red Cell Distribution Width 23.5 % (11.6-17.2); White Blood Count 8.8 th/mm3 (4.0-11.0)
[2017-12-31 21:31] LABS: Mean Corpuscular HGB Conc 30.8 % (32.0-36.0)
[2017-12-31 21:44] LABS: Potassium 3.3 meq/L (3.5-5.1)
[2017-12-31 22:09] LABS: Total Protein 7.1 g/dL (6.4-8.2)
[2017-12-31] MEDS ORDERED: Calcium Gluconate Inj 2 GM in Dextrose 5% in Water Inj 100 ML IV.SIG ONE ×2 (22:30)
[2017-12-31 23:31] LABS: Eosinophils 4 % (0-4); Myelocytes 1 % (0-0); Tallied Nucleated RBC 1 (0-0)
[2017-12-31 23:32] LABS: Lymphocytes 1 % (9-44); Monocytes 3 % (0-8); Toxic Granulation 1+
[2017-12-31 23:34] LABS: Burr Cells 1+; Ovalocytes 1+; Platelet Morphology Normal (Normal); Tear Drop Cells 1+
[2018-01-01] MEDS: Insulin NovoLIN Regular Correctional Sugar Inj SQ SCH ×5 (00:10→23:49)
[2018-01-01] MEDS: Sod Chloride 0.9% Inj 1,000 ML IV.CONT SCH ×3 (00:16→23:49)
[2018-01-01 01:15] LABS: Magnesium 1.9 mg/dL (1.5-2.5)
[2018-01-01 01:22] LABS: Potassium 2.8 meq/L (3.5-5.1)
[2018-01-01] MEDS: Potassium Chlor 20 mEq Premix 20 MEQ/100 ML PIGGYBACK IV.SIG PRN ×7 (01:43→22:33)
[2018-01-01] MEDS: Chlorhexidine Gluconate 2% 1 Pack (2 Cloths) TOPICAL SCH (03:06)
[2018-01-01] MEDS: Piperacil/Tazo 3.375 GM Premix 50 ML IV.SIG SCH ×4 (03:06→20:03)
[2018-01-01 04:42] LABS: INR 1.9 Ratio; Prothrombin Time 19.2 sec (9.8-11.6)
[2018-01-01 05:00] LABS: Albumin 1.7 g/dL (3.4-5.0); Calcium 6.7 mg/dL (8.5-10.1); Carbon Dioxide 22.6 meq/L (21.0-32.0); Magnesium 1.9 mg/dL (1.5-2.5); Phosphorus 2.5 mg/dL (2.5-4.9); Total Protein 6.8 g/dL (6.4-8.2)
[2018-01-01 05:01] LABS: Potassium 3.6 meq/L (3.5-5.1)
[2018-01-01] MEDS: Pantoprazole Inj 80 MG in Sodium Chlor 0.9% Inj 100 ML IV.CONT SCH ×2 (06:02→16:01)
[2018-01-01] MEDS: Multivit/Folic Acid/Minerals Chewable Tablets CHEW SCH (08:33)
--- NOTE | 2018-01-01 10:02 | P.PN ---
Subjective Interval history: Follow-up ascites. Patient currently denies abdominal pain. No active bleed. Endoscopy postponed for tomorrow will start diet. Physical Exam Vital signs: Vital Signs 12/31/17 11:00 12/31/17 12:00 12/31/17 13:00 Temperature Pulse Rate 69 78 76 Respiratory Rate 13 24 19 Blood Pressure Pulse Oximetry 100 99 98 12/31/17 14:00 12/31/17 15:00 12/31/17 16:00 Temperature Pulse Rate 72 66 73 Respiratory Rate 21 18 25 H Blood Pressure Pulse Oximetry 100 100 100 12/31/17 17:00 12/31/17 17:40 12/31/17 18:00 Temperature Pulse Rate 76 80 83 Respiratory Rate 18 17 16 Blood Pressure 95/52 L 97/53 L Pulse Oximetry 95 99 99 12/31/17 18:31 12/31/17 19:00 12/31/17 19:01 Temperature Pulse Rate 104 H 91 H 92 H Respiratory Rate 21 19 18 Blood Pressure 116/64 111/54 L Pulse Oximetry 94 L 99 100 12/31/17 19:30 12/31/17 20:00 12/31/17 21:00 Temperature 98.2 F Pulse Rate 96 H 89 Respiratory Rate 24 20 Blood Pressure 114/55 L 102/59 L Pulse Oximetry 99 99 99 12/31/17 22:00 01/01/18 00:00 01/01/18 04:00 Temperature 98.3 F 98.6 F Pulse Rate 83 78 90 Respiratory Rate 20 16 20 Blood Pressure 121/57 L 109/60 100/58 L Pulse Oximetry 100 100 100 01/01/18 07:57 Temperature Pulse Rate Respiratory Rate Blood Pressure Pulse Oximetry 96 Intake & Output 12/31/17 01/01/18 01/01/18 18:59 06:59 18:59 Intake Total 2050 / 2050 3770 / 3770 Output Total 350 / 350 500 / 500 Balance 1700 / 1700 3270 / 3270 Weight 79.8 kg 82 kg Intake: IV 1250 / 1250 2330 / 2330 Protonix Inj 80 MG In NS Inj 100 / 100 200 / 200 100 ML @ 10 mls/hr IV.CONT CONT MARGARETTE Rx#:[id number] NS Inj 1,000 ML @ 84 mls/hr IV. 1000 / 1000 1000 / 1000 CONT .[id number] MARGARETTE Rx#:[id number] Calcium Gluconate Inj 2 GM In 120 / 120 D5W Inj 100 ML @ 120 mls/hr IV. SIG ONCE ONE Rx#:[id number] Calcium Gluconate Inj 1 GM In 110 / 110 NS Inj 100 ML @ 110 mls/hr IV. SIG ONCE ONE Rx#:[id number] Magnesium Sulfate Inj 4 GM In 100 / 100 NS Inj 92 ML @ 25 mls/hr IV.SIG ONCE ONE Rx#:[id number] Zosyn 3.375 GM Premix 50 ML @ 50 / 50 150 / 150 100 mls/hr IV.SIG Q6H [facility], [facility]–1983 Rx#: [id number] KCl 20 mEq Premix Inj 20 meq In 100 / 100 300 / 300 100 ml @ 50 mls/hr IV.SIG Q2H PRN Rx#:[id number] Oral 1440 / 1440 Intake (Blood Product) Amt 800 / 800 Rbc As-3 Leukoreduced Unit 400 / 400 [id number] Rbc As-3 Leukoreduced Unit 400 / 400 [id number] Output: Urine Amount (Catheter) 350 / 350 500 / 500 Indwelling Urethral Catheter 350 / 350 500 / 500 Other: Date of Last Bowel Movement 01/01/18 # Bowel Movements 3 6 Weight On Admission 79.8 kg Narrative: GEN: Ill-appearing critically ill female in bed HEENT: (+) scleral icterus, no nystagmus, PERRL CARDIO: Regular rate and rhythm RESP: Diminished bibasilar breath sounds ABD: Soft, moderately distended, (+) fluid wave, mild diffuse tenderness, no guarding or rebound EXT: lower extremity edema SKIN: Significant jaundice NEURO: A&Ox3. No tremor - Urinary Catheter Management Indwelling Urethral Catheter Cath placed during this visit: yes, but has since been removed by the nurse Reason for continuing: Continue criteria not met Insertion date: 12/30/17 Insertion time: 23:06 Removal date: 01/01/18 Removal time: 09:56 Results - Labs CBC & Chem 7: 01/01/18 04:19 01/01/18 04:19 Laboratory Results - last 24 hr 12/31/17 12/31/17 12/31/17 11:21 11:21 16:58 WBC 7.5 RBC 3.27 L Hgb 9.0 L D Hct 26.9 L MCV 82.3 MCH 27.6 MCHC 33.6 RDW 23.5 H D Plt Count 128 L MPV 9.1 Prelim Diff (Auto) Manual diff required WBC Differential Manual diff final Seg Neuts % (Manual) 83 H Lymphocytes % (Manual) 10 Monocytes % (Manual) 2 Eosinophils % (Manual) 2 Basophils % (Manual) 1 Metamyelocytes % (Man) 2 H Myelocytes % (Man) Abs Neuts (Manual) 6.4 Nucleated RBCs/100 WBC Differential Comment . Toxic Granulation Platelet Estimate Low L Platelet Morphology Normal Dimorphic RBCs Present H Tear Drop Cells Ovalocytes [place] Cells PT 19.4 H INR 1.9 Sodium 137 Potassium 3.3 L D Chloride 104 Carbon Dioxide 22.7 Anion Gap 10 BUN 10 Creatinine 1.10 H Estimated GFR 53 L POC Glucose Random Glucose 89 Calcium 6.5 L* D Prot Corrected Calcium 6.5 L* D Phosphorus 4.1 Magnesium 0.7 L Total Bilirubin 27.1 H AST 68 H ALT 52 Alkaline Phosphatase 131 H Ammonia Total Protein 7.3 Albumin 1.8 L 12/31/17 12/31/17 12/31/17 16:58 16:58 18:31 WBC RBC Hgb 9.2 L Hct 28.7 L MCV MCH MCHC RDW Plt Count MPV Prelim Diff (Auto) WBC Differential Seg Neuts % (Manual) Lymphocytes % (Manual) Monocytes % (Manual) Eosinophils % (Manual) Basophils % (Manual) Metamyelocytes % (Man) Myelocytes % (Man) Abs Neuts (Manual) Nucleated RBCs/100 WBC Differential Comment Toxic Granulation Platelet Estimate Platelet Morphology Dimorphic RBCs Tear Drop Cells Ovalocytes [place] Cells PT INR Sodium Potassium Chloride Carbon Dioxide Anion Gap BUN Creatinine Estimated GFR POC Glucose 114 H Random Glucose Calcium Prot Corrected Calcium Phosphorus Magnesium Total Bilirubin AST ALT Alkaline Phosphatase Ammonia 88 H Total Protein Albumin 12/31/17 12/31/17 12/31/17 20:59 20:59 23:46 WBC 8.8 RBC 3.29 L Hgb 8.5 L Hct 27.5 L MCV 83.8 MCH 25.8 L MCHC 30.8 L RDW 23.5 H Plt Count 116 L MPV 9.9 Prelim Diff (Auto) Manual diff required WBC Differential Manual diff final Seg Neuts % (Manual) 91 H Lymphocytes % (Manual) 1 L Monocytes % (Manual) 3 Eosinophils % (Manual) 4 Basophils % (Manual) Metamyelocytes % (Man) Myelocytes % (Man) 1 H Abs Neuts (Manual) 8.1 H Nucleated RBCs/100 WBC 1 H Differential Comment . Toxic Granulation 1+ H Platelet Estimate Low L Platelet Morphology Normal Dimorphic RBCs Tear Drop Cells 1+ H Ovalocytes 1+ H [place] Cells 1+ H PT INR Sodium 137 Potassium 3.3 L Chloride 104 Carbon Dioxide 19.0 L Anion Gap 14 BUN 9 Creatinine 1.44 H Estimated GFR 39 L POC Glucose 217 H Random Glucose 248 H D Calcium 6.5 L* Prot Corrected Calcium 6.5 L* Phosphorus Magnesium 2.1 D Total Bilirubin AST ALT Alkaline Phosphatase Ammonia Total Protein 7.1 Albumin 01/01/18 01/01/18 01/01/18 00:30 04:19 04:19 WBC RBC Hgb Hct MCV MCH MCHC RDW Plt Count MPV Prelim Diff (Auto) WBC Differential Seg Neuts % (Manual) Lymphocytes % (Manual) Monocytes % (Manual) Eosinophils % (Manual) Basophils % (Manual) Metamyelocytes % (Man) Myelocytes % (Man) Abs Neuts (Manual) Nucleated RBCs/100 WBC Differential Comment Toxic Granulation Platelet Estimate Platelet Morphology Dimorphic RBCs Tear Drop Cells Ovalocytes [place] Cells PT 19.2 H INR 1.9 Sodium 140 Potassium 2.8 L* 3.6 D Chloride 107 Carbon Dioxide 22.6 Anion Gap 10 BUN 9 Creatinine 1.17 H Estimated GFR 49 L POC Glucose Random Glucose 54 L D Calcium 6.7 L* Prot Corrected Calcium 6.9 L* Phosphorus 2.5 D Magnesium 1.9 1.9 Total Bilirubin 26.5 H AST 55 H ALT 45 Alkaline Phosphatase 114 Ammonia Total Protein 6.8 Albumin 1.7 L 01/01/18 01/01/18 01/01/18 04:19 04:19 04:59 WBC RBC Hgb 8.0 L Hct 24.0 L MCV MCH MCHC RDW Plt Count MPV Prelim Diff (Auto) WBC Differential Seg Neuts % (Manual) Lymphocytes % (Manual) Monocytes % (Manual) Eosinophils % (Manual) Basophils % (Manual) Metamyelocytes % (Man) Myelocytes % (Man) Abs Neuts (Manual) Nucleated RBCs/100 WBC Differential Comment Toxic Granulation Platelet Estimate Platelet Morphology Dimorphic RBCs Tear Drop Cells Ovalocytes [place] Cells PT INR Sodium Potassium Chloride Carbon Dioxide Anion Gap BUN Creatinine Estimated GFR POC Glucose 68 Random Glucose Calcium Prot Corrected Calcium Phosphorus Magnesium Total Bilirubin AST ALT Alkaline Phosphatase Ammonia 64 H Total Protein Albumin 01/01/18 01/01/18 05:16 05:37 WBC RBC Hgb Hct MCV MCH MCHC RDW Plt Count MPV Prelim Diff (Auto) WBC Differential Seg Neuts % (Manual) Lymphocytes % (Manual) Monocytes % (Manual) Eosinophils % (Manual) Basophils % (Manual) Metamyelocytes % (Man) Myelocytes % (Man) Abs Neuts (Manual) Nucleated RBCs/100 WBC Differential Comment Toxic Granulation Platelet Estimate Platelet Morphology Dimorphic RBCs Tear Drop Cells Ovalocytes [place] Cells PT INR Sodium Potassium Chloride Carbon Dioxide Anion Gap BUN Creatinine Estimated GFR POC Glucose 88 127 H Random Glucose Calcium Prot Corrected Calcium Phosphorus Magnesium Total Bilirubin AST ALT Alkaline Phosphatase Ammonia Total Protein Albumin Microbiology 12/30/17 23:00 Catheterized Urine Urine Culture - Preliminary Results Pending 12/30/17 23:20 Blood - Peripheral Aerobic Blood Culture - Preliminary No growth in 1 day 12/30/17 23:20 Blood - Peripheral Anaerobic Blood Culture - Preliminary No growth in 1 day 12/30/17 23:25 Blood - Peripheral Aerobic Blood Culture - Preliminary No growth in 1 day 12/30/17 23:25 Blood - Peripheral Anaerobic Blood Culture - Preliminary No growth in 1 day - Procedures ITS Impressions Abdomen/Pelvis CT 12/31/17 00:00 CONCLUSION: 1. Interval development of a moderate amount of ascites in the abdomen and pelvis. 2. Stable gallstones and nodular contour to the liver. Assessment and Plan - Plan 47-year-old female with HCV cirrhosis medication noncompliance with history of GI bleeds presents with likely recurrent GI bleed and significant hepatic encephalopathy. Plan by systems: Neurologic: Acute metabolic encephalopathy. Resolving Acute hepatic encephalopathy. Improving Frequent neuro checks Avoid long-acting sedatives Increase lactulose to 4 times daily, rifaximin started on admission; mental status improving Monitor for signs of alcohol withdrawal, unclear if patient is still abusing EtOH Thiamine supplementation, MVI Respiratory: Aggressive pulmonary toilet Wean oxygen by nasal cannula for goal SPO2 greater than 90% Head of bed elevated PRN nebs Cardiovascular: Keep on telemetry Renal: Acute kidney injury superimposed on chronic renal insufficiency, unknown stage Discontinue Pena start purewick -- Strict I/Os Daily BMP FEN/GI: HCV cirrhosis Acute liver dysfunction superimposed on end-stage liver disease GI bleeding Severe hypokalemia Severe hypocalcemia Severe acute protein calorie malnutrition Ascites suspect SBP ICU electrolyte protocol Aggressive electrolyte replacement, check Mg++ GI consult-- Patient is now a Child's C cirrhotic (had been B on discharge in August) with MELD score of 30 (had been a MELD of 11 on last discharge) Lactulose and rifaximin as noted above, recheck ammonia tomorrow Trend H&H, s/p 2 U PRBCs Protonix drip We will not place on octreotide drip as the patient has recent EGD and imaging suggestive that she does not have variceal disease Diagnostic and therapeutic ultrasound paracentesis. Start IV albumin and IV Lasix Heme/ID: Anemia secondary to acute blood loss Coagulopathy secondary to end-stage liver disease Urinary tract infection Will broaden antibiotics to zosyn for gram negative coverage until ID returns on blood/ urine cultures s/p 2 units PRBC Trend H&H Daily INR Endocrine: -- SSI Prophylaxis: GI Prophylaxis Protonix drip DVT Prophylaxis -- SCDs Hold pharmacologic DVT prophylaxis in the setting of GI bleeding Lines: Peripheral IVs Dispo: ICU. Remains critically ill. Critical care time spent 35 minutes
[2018-01-01] MEDS: Phytonadione 5 MG/SWFI 5 ML Oral Syringe PO SCH (10:27)
[2018-01-01] MEDS: Calcium Carbonate 500 MG Tablet PO SCH ×2 (10:27→20:03)
[2018-01-01 11:29] LABS: Total Protein 6.9 g/dL (6.4-8.2)
--- NOTE | 2018-01-01 12:23 | P.PNGI ---
Subjective Interval history: Awake and alert and tolerating diet well. Physical Exam Vital signs: Vital Signs 12/31/17 13:00 12/31/17 14:00 12/31/17 15:00 Temperature Pulse Rate 76 72 66 Respiratory Rate 19 21 18 Blood Pressure Pulse Oximetry 98 100 100 12/31/17 16:00 12/31/17 17:00 12/31/17 17:40 Temperature Pulse Rate 73 76 80 Respiratory Rate 25 H 18 17 Blood Pressure 95/52 L Pulse Oximetry 100 95 99 12/31/17 18:00 12/31/17 18:31 12/31/17 19:00 Temperature Pulse Rate 83 104 H 91 H Respiratory Rate 16 21 19 Blood Pressure 97/53 L 116/64 Pulse Oximetry 99 94 L 99 12/31/17 19:01 12/31/17 19:30 12/31/17 20:00 Temperature 98.2 F Pulse Rate 92 H 96 H Respiratory Rate 18 24 Blood Pressure 111/54 L 114/55 L Pulse Oximetry 100 99 99 12/31/17 21:00 12/31/17 22:00 01/01/18 00:00 Temperature 98.3 F Pulse Rate 89 83 78 Respiratory Rate 20 20 16 Blood Pressure 102/59 L 121/57 L 109/60 Pulse Oximetry 99 100 100 01/01/18 00:03 01/01/18 00:31 01/01/18 01:00 Temperature Pulse Rate 80 79 86 Respiratory Rate 24 20 32 H Blood Pressure 109/60 113/59 L Pulse Oximetry 100 100 100 01/01/18 01:09 01/01/18 01:30 01/01/18 02:00 Temperature Pulse Rate 73 70 65 Respiratory Rate 22 17 14 Blood Pressure 101/59 L 97/55 L 92/54 L Pulse Oximetry 100 99 98 01/01/18 02:30 01/01/18 02:32 01/01/18 03:00 Temperature Pulse Rate 74 69 68 Respiratory Rate 16 14 23 Blood Pressure 79/51 L 101/54 L 80/48 L Pulse Oximetry 97 97 97 01/01/18 03:02 01/01/18 03:10 01/01/18 03:30 Temperature Pulse Rate 74 74 79 Respiratory Rate 24 16 11 L Blood Pressure 82/52 L 84/54 L 88/51 L Pulse Oximetry 97 97 96 01/01/18 04:00 01/01/18 04:30 01/01/18 05:00 Temperature 98.6 F Pulse Rate 90 89 84 Respiratory Rate 18 14 20 Blood Pressure 100/58 L 102/56 L 96/52 L Pulse Oximetry 99 100 100 01/01/18 05:30 01/01/18 06:00 01/01/18 06:30 Temperature Pulse Rate 94 H 87 75 Respiratory Rate 13 24 16 Blood Pressure 100/55 L 101/54 L 88/49 L Pulse Oximetry 100 100 100 01/01/18 07:00 01/01/18 07:30 01/01/18 07:57 Temperature Pulse Rate 70 69 Respiratory Rate 13 13 Blood Pressure 85/52 L 89/51 L Pulse Oximetry 97 96 96 01/01/18 08:00 01/01/18 08:30 01/01/18 09:00 Temperature Pulse Rate 66 68 80 Respiratory Rate 18 15 Blood Pressure 86/48 L 92/54 L Pulse Oximetry 98 97 100 01/01/18 09:02 01/01/18 09:30 01/01/18 10:00 Temperature 98.4 F Pulse Rate 96 H 69 124 H Respiratory Rate Blood Pressure 90/50 L 92/54 L 93/53 L Pulse Oximetry 100 100 100 Intake & Output 12/31/17 01/01/18 01/01/18 18:59 06:59 18:59 Intake Total 2050 / 2050 3770 / 3770 Output Total 350 / 350 500 / 500 Balance 1700 / 1700 3270 / 3270 Weight 79.8 kg 82 kg Intake: IV 1250 / 1250 2330 / 2330 Protonix Inj 80 MG In NS Inj 100 / 100 200 / 200 100 ML @ 10 mls/hr IV.CONT CONT [facility] Rx#:[id number] NS Inj 1,000 ML @ 84 mls/hr IV. 1000 / 1000 1000 / 1000 CONT .[id number] [facility] Rx#:[id number] Calcium Gluconate Inj 2 GM In 120 / 120 D5W Inj 100 ML @ 120 mls/hr IV. SIG ONCE ONE Rx#:[id number] Calcium Gluconate Inj 1 GM In 110 / 110 NS Inj 100 ML @ 110 mls/hr IV. SIG ONCE ONE Rx#:[id number] Magnesium Sulfate Inj 4 GM In 100 / 100 NS Inj 92 ML @ 25 mls/hr IV.SIG ONCE ONE Rx#:[id number] Zosyn 3.375 GM Premix 50 ML @ 50 / 50 150 / 150 100 mls/hr IV.SIG Q6H [facility] Rx#: [id number] KCl 20 mEq Premix Inj 20 meq In 100 / 100 300 / 300 100 ml @ 50 mls/hr IV.SIG Q2H PRN Rx#:[id number] Oral 1440 / 1440 Intake (Blood Product) Amt 800 / 800 Rbc As-3 Leukoreduced Unit 400 / 400 [id number] Rbc As-3 Leukoreduced Unit 400 / 400 [id number] Output: Urine Amount (Catheter) 350 / 350 500 / 500 Indwelling Urethral Catheter 350 / 350 500 / 500 Other: Date of Last Bowel Movement 01/01/18 # Bowel Movements 3 6 Weight On Admission 79.8 kg Narrative: GEN: Ill-appearing critically ill female in bed HEENT: (+) scleral icterus, no nystagmus, PERRL CARDIO: Regular rate and rhythm RESP: Diminished bibasilar breath sounds ABD: Soft, moderately distended, (+) fluid wave, mild diffuse tenderness, no guarding or rebound EXT: lower extremity edema SKIN: Significant jaundice NEURO: A&Ox3. No tremor - Urinary Catheter Management Indwelling Urethral Catheter Cath placed during this visit: yes, but has since been removed by the nurse Reason for continuing: Continue criteria not met Insertion date: 12/30/17 Insertion time: 23:06 Removal date: 01/01/18 Removal time: 09:56 Results - Labs CBC & Chem 7: 01/01/18 04:19 01/01/18 04:19 Laboratory Results - last 24 hr 12/31/17 12/31/17 12/31/17 11:21 11:21 16:58 WBC RBC Hgb Hct MCV MCH MCHC RDW Plt Count MPV Prelim Diff (Auto) WBC Differential Manual diff final Seg Neuts % (Manual) 83 H Lymphocytes % (Manual) 10 Monocytes % (Manual) 2 Eosinophils % (Manual) 2 Basophils % (Manual) 1 Metamyelocytes % (Man) 2 H Myelocytes % (Man) Abs Neuts (Manual) 6.4 Nucleated RBCs/100 WBC Differential Comment Toxic Granulation Platelet Estimate Low L Platelet Morphology Normal Dimorphic RBCs Present H Tear Drop Cells Ovalocytes Hallett Cells PT 19.4 H INR 1.9 Sodium 137 Potassium 3.3 L D Chloride 104 Carbon Dioxide 22.7 Anion Gap 10 BUN 10 Creatinine 1.10 H Estimated GFR 53 L POC Glucose Random Glucose 89 Calcium 6.5 L* D Prot Corrected Calcium 6.5 L* D Phosphorus 4.1 Magnesium 0.7 L Total Bilirubin 27.1 H AST 68 H ALT 52 Alkaline Phosphatase 131 H Ammonia Lactate Dehydrogenase Total Protein 7.3 Albumin 1.8 L 12/31/17 12/31/17 12/31/17 16:58 16:58 18:31 WBC RBC Hgb 9.2 L Hct 28.7 L MCV MCH MCHC RDW Plt Count MPV Prelim Diff (Auto) WBC Differential Seg Neuts % (Manual) Lymphocytes % (Manual) Monocytes % (Manual) Eosinophils % (Manual) Basophils % (Manual) Metamyelocytes % (Man) Myelocytes % (Man) Abs Neuts (Manual) Nucleated RBCs/100 WBC Differential Comment Toxic Granulation Platelet Estimate Platelet Morphology Dimorphic RBCs Tear Drop Cells Ovalocytes Hallett Cells PT INR Sodium Potassium Chloride Carbon Dioxide Anion Gap BUN Creatinine Estimated GFR POC Glucose 114 H Random Glucose Calcium Prot Corrected Calcium Phosphorus Magnesium Total Bilirubin AST ALT Alkaline Phosphatase Ammonia 88 H Lactate Dehydrogenase Total Protein Albumin 12/31/17 12/31/17 12/31/17 20:59 20:59 23:46 WBC 8.8 RBC 3.29 L Hgb 8.5 L Hct 27.5 L MCV 83.8 MCH 25.8 L MCHC 30.8 L RDW 23.5 H Plt Count 116 L MPV 9.9 Prelim Diff (Auto) Manual diff required WBC Differential Manual diff final Seg Neuts % (Manual) 91 H Lymphocytes % (Manual) 1 L Monocytes % (Manual) 3 Eosinophils % (Manual) 4 Basophils % (Manual) Metamyelocytes % (Man) Myelocytes % (Man) 1 H Abs Neuts (Manual) 8.1 H Nucleated RBCs/100 WBC 1 H Differential Comment . Toxic Granulation 1+ H Platelet Estimate Low L Platelet Morphology Normal Dimorphic RBCs Tear Drop Cells 1+ H Ovalocytes 1+ H Hallett Cells 1+ H PT INR Sodium 137 Potassium 3.3 L Chloride 104 Carbon Dioxide 19.0 L Anion Gap 14 BUN 9 Creatinine 1.44 H Estimated GFR 39 L POC Glucose 217 H Random Glucose 248 H D Calcium 6.5 L* Prot Corrected Calcium 6.5 L* Phosphorus Magnesium 2.1 D Total Bilirubin AST ALT Alkaline Phosphatase Ammonia Lactate Dehydrogenase Total Protein 7.1 Albumin 01/01/18 01/01/18 01/01/18 00:30 04:19 04:19 WBC RBC Hgb Hct MCV MCH MCHC RDW Plt Count MPV Prelim Diff (Auto) WBC Differential Seg Neuts % (Manual) Lymphocytes % (Manual) Monocytes % (Manual) Eosinophils % (Manual) Basophils % (Manual) Metamyelocytes % (Man) Myelocytes % (Man) Abs Neuts (Manual) Nucleated RBCs/100 WBC Differential Comment Toxic Granulation Platelet Estimate Platelet Morphology Dimorphic RBCs Tear Drop Cells Ovalocytes Mariama Cells PT 19.2 H INR 1.9 Sodium 140 Potassium 2.8 L* 3.6 D Chloride 107 Carbon Dioxide 22.6 Anion Gap 10 BUN 9 Creatinine 1.17 H Estimated GFR 49 L POC Glucose Random Glucose 54 L D Calcium 6.7 L* Prot Corrected Calcium 6.9 L* Phosphorus 2.5 D Magnesium 1.9 1.9 Total Bilirubin 26.5 H AST 55 H ALT 45 Alkaline Phosphatase 114 Ammonia Lactate Dehydrogenase Total Protein 6.8 Albumin 1.7 L 01/01/18 01/01/18 01/01/18 04:19 04:19 04:19 WBC RBC Hgb 8.0 L Hct 24.0 L MCV MCH MCHC RDW Plt Count MPV Prelim Diff (Auto) WBC Differential Seg Neuts % (Manual) Lymphocytes % (Manual) Monocytes % (Manual) Eosinophils % (Manual) Basophils % (Manual) Metamyelocytes % (Man) Myelocytes % (Man) Abs Neuts (Manual) Nucleated RBCs/100 WBC Differential Comment Toxic Granulation Platelet Estimate Platelet Morphology Dimorphic RBCs Tear Drop Cells Ovalocytes Mariama Cells PT INR Sodium Potassium Chloride Carbon Dioxide Anion Gap BUN Creatinine Estimated GFR POC Glucose Random Glucose Calcium Prot Corrected Calcium Phosphorus Magnesium Total Bilirubin AST ALT Alkaline Phosphatase Ammonia 64 H Lactate Dehydrogenase 265 H Total Protein 6.9 Albumin 01/01/18 01/01/18 01/01/18 04:59 05:16 05:37 WBC RBC Hgb Hct MCV MCH MCHC RDW Plt Count MPV Prelim Diff (Auto) WBC Differential Seg Neuts % (Manual) Lymphocytes % (Manual) Monocytes % (Manual) Eosinophils % (Manual) Basophils % (Manual) Metamyelocytes % (Man) Myelocytes % (Man) Abs Neuts (Manual) Nucleated RBCs/100 WBC Differential Comment Toxic Granulation Platelet Estimate Platelet Morphology Dimorphic RBCs Tear Drop Cells Ovalocytes Hallett Cells PT INR Sodium Potassium Chloride Carbon Dioxide Anion Gap BUN Creatinine Estimated GFR POC Glucose 68 88 127 H Random Glucose Calcium Prot Corrected Calcium Phosphorus Magnesium Total Bilirubin AST ALT Alkaline Phosphatase Ammonia Lactate Dehydrogenase Total Protein Albumin Microbiology 12/30/17 23:00 Catheterized Urine Urine Culture - Preliminary 12/30/17 23:20 Blood - Peripheral Aerobic Blood Culture - Preliminary No growth in 2 days 12/30/17 23:20 Blood - Peripheral Anaerobic Blood Culture - Preliminary No growth in 2 days 12/30/17 23:25 Blood - Peripheral Aerobic Blood Culture - Preliminary No growth in 2 days 12/30/17 23:25 Blood - Peripheral Anaerobic Blood Culture - Preliminary No growth in 2 days - Procedures ITS Impressions Abdomen/Pelvis CT 12/31/17 00:00 CONCLUSION: 1. Interval development of a moderate amount of ascites in the abdomen and pelvis. 2. Stable gallstones and nodular contour to the liver. Assessment and Plan - Plan 1. Anemia with history of gastrointestinal bleeding in the recent past, status post endoscopy in August 2017 that did not show any evidence of varices. The patient at the current time is not exhibiting any signs of active bleeding. 2. Hepatitis C, never been treated in the past. 3. 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 The patient is not a candidate for liver transplantation with the history of active alcohol use. 4. History of recurrent ascites, status post paracentesis several months ago and she is currently with the ascites again. 5. History of alcohol abuse. 6. Electrolyte imbalance with hypokalemia. 7. Hypercoagulable state with increasing PT and PTT secondary to chronic liver disease. RECOMMENDATIONS: - Blood transfusion to correct her severe anemia. - PPI - Upper endoscopy in AM. - NPO after midnight - Obtain consent - Paracentesis. - We will follow up with you
[2018-01-01 12:58] LABS: Hematocrit 25.2 % (35.0-46.0); Hemoglobin 8.2 gm/dL (11.6-15.3)
[2018-01-01] MEDS: Albumin Human 25% Inj 50 ML IV.SIG SCH ×2 (13:37→21:59)
[2018-01-01 17:06] LABS: Hematocrit 25.5 % (35.0-46.0); Hemoglobin 8.1 gm/dL (11.6-15.3)
[2018-01-01 17:43] LABS: Calcium 6.9 mg/dL (8.5-10.1); Carbon Dioxide 20.9 meq/L (21.0-32.0); Magnesium 1.5 mg/dL (1.5-2.5); Total Protein 7.2 g/dL (6.4-8.2)
[2018-01-01 17:47] LABS: Potassium 2.8 meq/L (3.5-5.1)
[2018-01-01] MEDS ORDERED: Calcium Gluconate Inj 1 GM in Sodium Chlor 0.9% Inj 100 ML IV.SIG ONE (18:00)
[2018-01-01] MEDS: Magnesium Oxide 400 MG Tablet PO PRN (18:32)
[2018-01-01] MEDS: Potassium Phosphate 500 MG Soluble Tablet PO PRN (20:02)
[2018-01-02] MEDS: Potassium Chlor 20 mEq Premix 20 MEQ/100 ML PIGGYBACK IV.SIG PRN (00:28)
[2018-01-02] MEDS: Pantoprazole Inj 80 MG in Sodium Chlor 0.9% Inj 100 ML IV.CONT SCH ×2 (02:04→12:41)
[2018-01-02] MEDS: Piperacil/Tazo 3.375 GM Premix 50 ML IV.SIG SCH ×4 (02:06→21:06)
[2018-01-02] MEDS: Chlorhexidine Gluconate 2% 1 Pack (2 Cloths) TOPICAL SCH (04:14)
[2018-01-02 05:06] LABS: Baso # (Auto) 0.1 th/mm3 (0.0-0.2); Eos # (Auto) 0.2 th/mm3 (0.0-0.4); Eos % (Auto) 2.8 % (0.0-4.0); Hematocrit 23.1 % (35.0-46.0); Hemoglobin 7.8 gm/dL (11.6-15.3); Lymph # (Auto) 0.5 th/mm3 (1.0-4.8); Lymph % (Auto) 8.2 % (9.0-44.0); Mean Corpuscular HGB Conc 33.6 % (32.0-36.0); Mean Corpuscular Hemoglobin 27.3 pg (27.0-34.0); Mean Corpuscular Volume 81.1 fL (80.0-100.0); Mean Platelet Volume 8.8 fL (7.0-11.0); Mono # (Auto) 0.8 th/mm3 (0.0-0.9); Mono % (Auto) 13.6 % (0.0-8.0); Neut # (Auto) 4.5 th/mm3 (1.8-7.7); Neut % (Auto) 73.4 % (16.0-70.0); Platelet Count 113 th/mm3 (150-450); Red Blood Count 2.84 mil/mm3 (4.00-5.30); Red Cell Distribution Width 23.6 % (11.6-17.2); White Blood Count 6.1 th/mm3 (4.0-11.0)
[2018-01-02 05:12] LABS: INR 1.9 Ratio; Prothrombin Time 19.4 sec (9.8-11.6)
[2018-01-02] MEDS: Insulin NovoLIN Regular Correctional Sugar Inj SQ SCH ×3 (05:12→19:44)
[2018-01-02 05:18] LABS: Albumin 2.1 g/dL (3.4-5.0); Calcium 6.9 mg/dL (8.5-10.1); Carbon Dioxide 22.7 meq/L (21.0-32.0); Potassium 3.1 meq/L (3.5-5.1); Total Protein 7.2 g/dL (6.4-8.2)
[2018-01-02] MEDS ORDERED: Calcium Gluconate Inj 1 GM in Dextrose 5% in Water Inj 100 ML IV.SIG ONE ×2 (05:48)
[2018-01-02] MEDS: Magnesium Sulfate Inj 4 GM in Sodium Chlor 0.9% Inj 92 ML IV.SIG PRN (06:11)
[2018-01-02] MEDS: Phytonadione 5 MG/SWFI 5 ML Oral Syringe PO SCH (08:16)
[2018-01-02] MEDS: Multivit/Folic Acid/Minerals Chewable Tablets CHEW SCH (08:17)
[2018-01-02] MEDS: Calcium Carbonate 500 MG Tablet PO SCH ×3 (08:25→21:16)
[2018-01-02] MEDS ORDERED: Sodium Chlor 0.9% Inj 250 ML IV.SIG SCH (09:00)
[2018-01-02 09:02] LABS: Eosinophils 5 % (0-4); Lymphocytes 5 % (9-44); Monocytes 12 % (0-8)
[2018-01-02 09:03] LABS: Platelet Morphology Normal (Normal)
[2018-01-02] MEDS ORDERED: Calcium Chloride Inj 1 GM in Sodium Chlor 0.9% Inj 100 ML IV.SIG ONE (10:00)
--- NOTE | 2018-01-02 10:04 | P.PN ---
Subjective Interval history: Follow-up ascites. Denies abdominal pain. Seen in PACU for EGD. Physical Exam Vital signs: Vital Signs 01/01/18 11:00 01/01/18 11:30 01/01/18 12:00 Temperature Pulse Rate 80 76 91 H Respiratory Rate 21 27 H 30 H Blood Pressure 100/55 L 92/54 L Pulse Oximetry 100 100 100 01/01/18 12:06 01/01/18 12:30 01/01/18 13:00 Temperature Pulse Rate 87 77 77 Respiratory Rate 22 26 H 31 H Blood Pressure 126/60 135/64 Pulse Oximetry 100 100 99 01/01/18 13:31 01/01/18 14:00 01/01/18 14:01 Temperature Pulse Rate 80 82 81 Respiratory Rate 24 28 H 25 H Blood Pressure 114/53 L 107/55 L Pulse Oximetry 100 100 100 01/01/18 14:30 01/01/18 15:00 01/01/18 15:11 Temperature Pulse Rate 85 87 90 Respiratory Rate 25 H 23 32 H Blood Pressure 115/61 111/60 Pulse Oximetry 100 100 100 01/01/18 15:30 01/01/18 16:00 01/01/18 20:00 Temperature 98.4 F Pulse Rate 85 85 73 Respiratory Rate 25 H 33 H 18 Blood Pressure 117/59 L 122/64 101/59 L Pulse Oximetry 100 100 99 01/01/18 21:38 01/02/18 00:00 01/02/18 04:00 Temperature 97.6 F 98 F Pulse Rate 60 56 L Respiratory Rate 20 20 Blood Pressure 125/59 L 107/57 L Pulse Oximetry 99 97 97 01/02/18 08:45 Temperature 97.6 F Pulse Rate 66 Respiratory Rate 16 Blood Pressure 96/52 L Pulse Oximetry 96 Intake & Output 01/01/18 01/02/18 01/02/18 18:59 06:59 18:59 Intake Total 1350 / 1350 1460 / 1460 260 / 260 Output Total 200 / 200 800 / 800 Balance 1150 / 1150 660 / 660 260 / 260 Weight 78.5 kg Intake: IV 1350 / 1350 860 / 860 260 / 260 Protonix Inj 80 MG In NS Inj 100 / 100 100 / 100 100 ML @ 10 mls/hr IV.CONT CONT [facility] Rx#:[id number] NS Inj 1,000 ML @ 84 mls/hr IV. 1000 / 1000 CONT .[id number] [facility] Rx#:[id number] Flexbumin 25% Inj 50 ML @ 60 100 / 100 mls/hr IV.SIG Q12H [facility] Rx#: [id number] Calcium Gluconate Inj 1 GM In 110 / 110 D5W Inj 100 ML @ 110 mls/hr IV. SIG ONCE ONE Rx#:[id number] Calcium Gluconate Inj 1 GM In 110 / 110 NS Inj 100 ML @ 110 mls/hr IV. SIG ONCE ONE Rx#:[id number] Magnesium Sulfate Inj 4 GM In 100 / 100 NS Inj 92 ML @ 50 mls/hr IV.SIG UNSCH PRN Rx#:[id number] Zosyn 3.375 GM Premix 50 ML @ 50 / 50 150 / 150 50 / 50 100 mls/hr IV.SIG Q6H [facility] Rx#: [id number] KCl 20 mEq Premix Inj 20 meq In 200 / 200 400 / 400 100 ml @ 50 mls/hr IV.SIG Q2H [facility] Rx#:[id number] Oral 600 / 600 Output: Urine 800 / 800 Urine Amount (Catheter) 200 / 200 Indwelling Urethral Catheter 200 / 200 Other: # Voids 7 # Bowel Movements 12 2 Narrative: GEN: Ill-appearing female in bed HEENT: (+) scleral icterus, no nystagmus, PERRL CARDIO: Regular rate and rhythm RESP: Diminished bibasilar breath sounds ABD: Soft, moderately distended, (+) fluid wave, mild diffuse tenderness, no guarding or rebound EXT: lower extremity edema SKIN: Significant jaundice NEURO: A&Ox3. No tremor - Urinary Catheter Management Indwelling Urethral Catheter Cath placed during this visit: yes, but has since been removed by the nurse Reason for continuing: Continue criteria not met Insertion date: 12/30/17 Insertion time: 23:06 Removal date: 01/01/18 Removal time: 09:56 Results - Labs CBC & Chem 7: 01/02/18 04:31 01/02/18 04:31 Laboratory Results - last 24 hr 01/01/18 01/01/18 01/01/18 04:19 12:16 12:45 WBC RBC Hgb 8.2 L Hct 25.2 L MCV MCH MCHC RDW Plt Count MPV Prelim Diff (Auto) Neut % (Auto) Lymph % (Auto) [place] % (Auto) Eos % (Auto) Baso % (Auto) Neut # (Auto) Lymph # (Auto) [place] # (Auto) Eos # (Auto) Baso # (Auto) WBC Differential Seg Neuts % (Manual) Lymphocytes % (Manual) Monocytes % (Manual) Eosinophils % (Manual) Basophils % (Manual) Abs Neuts (Manual) Differential Comment Platelet Estimate Platelet Morphology PT INR Sodium Potassium Chloride Carbon Dioxide Anion Gap BUN Creatinine Estimated GFR POC Glucose 136 H Random Glucose Calcium Prot Corrected Calcium Phosphorus Magnesium Total Bilirubin AST ALT Alkaline Phosphatase Ammonia Lactate Dehydrogenase 265 H Total Protein 6.9 Albumin 01/01/18 01/01/18 01/01/18 16:39 16:39 16:39 WBC RBC Hgb 8.1 L Hct 25.5 L MCV MCH MCHC RDW Plt Count MPV Prelim Diff (Auto) Neut % (Auto) Lymph % (Auto) [place] % (Auto) Eos % (Auto) Baso % (Auto) Neut # (Auto) Lymph # (Auto) [place] # (Auto) Eos # (Auto) Baso # (Auto) WBC Differential Seg Neuts % (Manual) Lymphocytes % (Manual) Monocytes % (Manual) Eosinophils % (Manual) Basophils % (Manual) Abs Neuts (Manual) Differential Comment Platelet Estimate Platelet Morphology PT INR Sodium 139 Potassium 2.8 L* D Chloride 106 Carbon Dioxide 20.9 L Anion Gap 12 BUN 7 Creatinine 1.38 H Estimated GFR 41 L POC Glucose Random Glucose 123 H Calcium 6.9 L* Prot Corrected Calcium 6.9 L* Phosphorus 2.3 L Magnesium 1.5 Total Bilirubin 28.8 H AST 56 H ALT 44 Alkaline Phosphatase 118 H Ammonia Lactate Dehydrogenase Total Protein 7.2 Albumin 2.0 L 01/01/18 01/02/18 01/02/18 23:48 04:31 04:31 WBC 6.1 RBC 2.84 L Hgb 7.8 L Hct 23.1 L MCV 81.1 MCH 27.3 MCHC 33.6 RDW 23.6 H Plt Count 113 L MPV 8.8 Prelim Diff (Auto) Slide review pending Neut % (Auto) 73.4 H Lymph % (Auto) 8.2 L [place] % (Auto) 13.6 H Eos % (Auto) 2.8 Baso % (Auto) 2.0 Neut # (Auto) 4.5 Lymph # (Auto) 0.5 L [place] # (Auto) 0.8 Eos # (Auto) 0.2 Baso # (Auto) 0.1 WBC Differential Manual diff final Seg Neuts % (Manual) 76 H Lymphocytes % (Manual) 5 L Monocytes % (Manual) 12 H Eosinophils % (Manual) 5 H Basophils % (Manual) 2 Abs Neuts (Manual) 4.6 Differential Comment . Platelet Estimate Low L Platelet Morphology Normal PT 19.4 H INR 1.9 Sodium Potassium Chloride Carbon Dioxide Anion Gap BUN Creatinine Estimated GFR POC Glucose 187 H Random Glucose Calcium Prot Corrected Calcium Phosphorus Magnesium Total Bilirubin AST ALT Alkaline Phosphatase Ammonia Lactate Dehydrogenase Total Protein Albumin 01/02/18 01/02/18 01/02/18 04:31 04:31 05:11 WBC RBC Hgb Hct MCV MCH MCHC RDW Plt Count MPV Prelim Diff (Auto) Neut % (Auto) Lymph % (Auto) [place] % (Auto) Eos % (Auto) Baso % (Auto) Neut # (Auto) Lymph # (Auto) [place] # (Auto) Eos # (Auto) Baso # (Auto) WBC Differential Seg Neuts % (Manual) Lymphocytes % (Manual) Monocytes % (Manual) Eosinophils % (Manual) Basophils % (Manual) Abs Neuts (Manual) Differential Comment Platelet Estimate Platelet Morphology PT INR Sodium 137 Potassium 3.1 L Chloride 104 Carbon Dioxide 22.7 Anion Gap 10 BUN 5 L Creatinine 1.31 H Estimated GFR 43 L POC Glucose 121 H Random Glucose 109 H Calcium 6.9 L* Prot Corrected Calcium 6.9 L* Phosphorus 3.0 Magnesium 1.0 L Total Bilirubin 28.7 H AST 60 H ALT 40 Alkaline Phosphatase 120 H Ammonia 58 H Lactate Dehydrogenase Total Protein 7.2 Albumin 2.1 L 01/02/18 08:16 WBC RBC Hgb Hct MCV MCH MCHC RDW Plt Count MPV Prelim Diff (Auto) Neut % (Auto) Lymph % (Auto) [place] % (Auto) Eos % (Auto) Baso % (Auto) Neut # (Auto) Lymph # (Auto) [place] # (Auto) Eos # (Auto) Baso # (Auto) WBC Differential Seg Neuts % (Manual) Lymphocytes % (Manual) Monocytes % (Manual) Eosinophils % (Manual) Basophils % (Manual) Abs Neuts (Manual) Differential Comment Platelet Estimate Platelet Morphology PT INR Sodium Potassium Chloride Carbon Dioxide Anion Gap BUN Creatinine Estimated GFR POC Glucose 116 H Random Glucose Calcium Prot Corrected Calcium Phosphorus Magnesium Total Bilirubin AST ALT Alkaline Phosphatase Ammonia Lactate Dehydrogenase Total Protein Albumin Microbiology 12/30/17 23:00 Catheterized Urine Urine Culture - Preliminary 12/30/17 23:20 Blood - Peripheral Aerobic Blood Culture - Preliminary No growth in 2 days 12/30/17 23:20 Blood - Peripheral Anaerobic Blood Culture - Preliminary No growth in 2 days 12/30/17 23:25 Blood - Peripheral Aerobic Blood Culture - Preliminary No growth in 2 days 12/30/17 23:25 Blood - Peripheral Anaerobic Blood Culture - Preliminary No growth in 2 days - Procedures ITS Impressions Abdomen/Pelvis CT 12/31/17 00:00 CONCLUSION: 1. Interval development of a moderate amount of ascites in the abdomen and pelvis. 2. Stable gallstones and nodular contour to the liver. Assessment and Plan - Plan 47-year-old female with HCV cirrhosis medication noncompliance with history of GI bleeds presents with likely recurrent GI bleed and significant hepatic encephalopathy. Plan by systems: Neurologic: Acute metabolic encephalopathy. Resolving Acute hepatic encephalopathy. Improving Frequent neuro checks Avoid long-acting sedatives Increase lactulose to 4 times daily, rifaximin started on admission; mental status improving Monitor for signs of alcohol withdrawal, unclear if patient is still abusing EtOH Thiamine supplementation, MVI Respiratory: Aggressive pulmonary toilet Wean oxygen by nasal cannula for goal SPO2 greater than 90% Head of bed elevated PRN nebs Cardiovascular: Keep on telemetry Renal: Acute kidney injury superimposed on chronic renal insufficiency, unknown stage Discontinue Pena start purewick -- Strict I/Os Daily BMP FEN/GI: HCV cirrhosis Acute liver dysfunction superimposed on end-stage liver disease GI bleeding Severe hypokalemia Severe hypocalcemia Severe acute protein calorie malnutrition Ascites suspect SBP ICU electrolyte protocol Aggressive electrolyte replacement, check Mg++ GI consult-- Patient is now a Child's C cirrhotic (had been B on discharge in August) with MELD score of 30 (had been a MELD of 11 on last discharge) Lactulose and rifaximin as noted above, recheck ammonia tomorrow Trend H&H, s/p 2 U PRBCs Protonix drip We will not place on octreotide drip as the patient has recent EGD and imaging suggestive that she does not have variceal disease Diagnostic and therapeutic ultrasound paracentesis. Continue IV albumin and IV Lasix Heme/ID: Anemia secondary to acute blood loss Coagulopathy secondary to end-stage liver disease Urinary tract infection Will broaden antibiotics to zosyn for gram negative coverage until ID returns on blood/ urine cultures s/p 2 units PRBC Trend H&H Daily INR Endocrine: -- SSI Prophylaxis: GI Prophylaxis Protonix drip DVT Prophylaxis -- SCDs Hold pharmacologic DVT prophylaxis in the setting of GI bleeding Lines: Peripheral IVs Dispo: May transfer to [facility] pending EGD
--- NOTE | 2018-01-02 10:08 | GIPROC ---
[facility] [address] [facility]. [facility], [address] EGD PROCEDURE REPORT EXAM DATE: 01/02/2018 PATIENT NAME: Debra Murray MR #: [id number] BIRTHDATE: 1970 ATTENDING: Juan Manuel Davidson MD ORDER #: [id number] [employer] LAMINATING OPERATOR: Willa Mackey and Merry Mason STATUS: inpatient INDICATIONS: The patient is a 47 yr old female here for an EGD due to hematemesis PROCEDURE PERFORMED: EGD w/ biopsy MEDICATIONS: None and Per Anesthesia. TOPICAL ANESTHETIC: none CONSENT: The patient understands the risks and benefits of the procedure and understands that these risks include, but are not limited to: sedation, allergic reaction, infection, perforation and/or bleeding. Alternative means of evaluation and treatment include, among others: physical exam, x-rays, and/or surgical intervention. The patient elects to proceed with this endoscopic procedure. medical equipment was checked for proper function. Hand hygiene and appropriate measures for infection prevention was taken. After the risks, benefits and alternatives of the procedure were thoroughly explained, Informed consent was verified, confirmed and timeout was successfully executed by the treatment team. The patient was anesthetized with topical anesthesia and the Pentax [id number] endoscope was introduced through the mouth and advanced to the second portion of the duodenum. Retroflexion was performed and was normal The gastroscope was then slowly withdrawn and removed. ESOPHAGUS: The mucosa of the esophagus appeared normal. STOMACH: Severe portal hypertensive gastropathy was found in the entire examined stomach. There was erythematous moderate and erosive gastritis in the gastric antrum. A biopsy was performed using cold forceps. Sample sent for histology. DUODENUM: The duodenal mucosa appeared normal in the duodenal bulb, 2nd part duodenum, and 3rd part duodenum. ADVERSE EVENTS: There were no complications. IMPRESSIONS: 1. The esophagus appeared normal 2. Portal hypertensive gastropathy was found in the entire examined stomach 3. There was erythematous gastritis in the gastric antrum; biopsy was performed 4. Normal duodenal mucosa in the duodenal bulb, 2nd part duodenum, and 3rd part duodenum 5. Retroflexion was performed and was normal RECOMMENDATIONS: 1. Await biopsy results. Biopsy results will not be ready for 7-10 days. If you don't hear from us in two weeks, call our office for biopsy results. 2. Continue PPI PATIENT CONDITION: stable DISPOSITION: Observation REPEAT EXAM: NONE Juan Manuel Davidson MD eSigned: Juan Manuel Davidson MD 01/02/2018 10:08 AM cc: PATIENT NAME: Maritza Murrayelena Choudhary MR#: [id number]
[2018-01-02] MEDS: Albumin Human 25% Inj 50 ML IV.SIG SCH ×2 (12:39→22:36)
[2018-01-02] MEDS: Sod Chloride 0.9% Inj 1,000 ML IV.CONT SCH (12:47)
--- NOTE | 2018-01-02 16:11 | US ---
EXAM DATE: 01/02/2018 4:05 PM EDT AGE/SEX: 47 years / Female INDICATIONS: Ascites. CLINICAL DATA: This is the patient's initial encounter. Patient reports that signs and symptoms have been present for 1 day and indicates a pain score of 0/10. MEDICAL/SURGICAL HISTORY: . Cirrhosis. Hepatitis. Liver failure. . Hysterectomy. COMPARISON: [facility] [place], CT ABDOMEN & PELVIS W CONTRAST, 12/31/2017. . FLUID: Total volume of 2,200 cc of quinteros fluid was removed. Fluid was sent to lab for ordered studies. . . TECHNIQUE: Ultrasound guidance for abdominal paracentesis. Paracentesis. The risks, benefits, and alternatives to ultrasound guided paracentesis were explained to the patient in detail including the risk of bleeding and infection. Written and verbal informed consent was obt ained. With the patient on the ultrasound table, ultrasound imaging was used to select the most appropriate approach for paracentesis. Overlying skin was prepped and draped in the usual sterile fashion and wi th a local anesthetic, a dermatotomy was made with an 11 blade scalpel. A 6 Upper [place] [id number] ca theter was introduced into the peritoneal cavity and fluid was collected. The patient tolerated the procedure well and left the ultrasound suite in stable condition. CONCLUSION: 1. Uncomplicated ultrasound-guided paracentesis. Electronically signed by: Anam Cisneros MD 01/02/2018 4:09 PM EDT
[2018-01-02] MEDS ORDERED: Lidocaine PF 1% Inj 5 ML Vial ONE ×2 (16:22)
[2018-01-02 17:36] LABS: Total Protein,Peritoneal Fluid 1.1 gm/dL
[2018-01-02] MEDS ORDERED: Potassium Chloride Inj 20 MEQ in Sodium Chlor 0.9% Inj 100 ML IV.SIG SCH (19:00)
[2018-01-02 19:30] LABS: Mesothelial,Peritoneal Fluid 12 %; Neutrophils,Peritoneal Fluid 17 %; RBC,Peritoneal Fluid 48 /mm3 (0-0)
[2018-01-02] MEDS: Potassium Chlor 20 mEq Premix 20 MEQ/100 ML PIGGYBACK IV.SIG SCH (22:38)
[2018-01-03] MEDS: Sod Chloride 0.9% Inj 1,000 ML IV.CONT SCH (00:42)
[2018-01-03] MEDS: Insulin NovoLIN Regular Correctional Sugar Inj SQ SCH ×4 (01:05→18:14)
[2018-01-03] MEDS: Piperacil/Tazo 3.375 GM Premix 50 ML IV.SIG SCH ×2 (03:00→18:38)
[2018-01-03] MEDS: Potassium Chlor 20 mEq Premix 20 MEQ/100 ML PIGGYBACK IV.SIG SCH ×3 (03:00→10:38)
[2018-01-03] MEDS: Chlorhexidine Gluconate 2% 1 Pack (2 Cloths) TOPICAL SCH (05:25)
[2018-01-03 05:59] LABS: Baso % (Auto) 0.3 % (0.0-2.0); Eos # (Auto) 0.1 th/mm3 (0.0-0.4); Eos % (Auto) 1.7 % (0.0-4.0); Hematocrit 25.1 % (35.0-46.0); Hemoglobin 8.5 gm/dL (11.6-15.3); Lymph # (Auto) 0.9 th/mm3 (1.0-4.8); Lymph % (Auto) 10.4 % (9.0-44.0); Mean Corpuscular HGB Conc 33.7 % (32.0-36.0); Mean Corpuscular Hemoglobin 28.3 pg (27.0-34.0); Mean Platelet Volume 8.8 fL (7.0-11.0); Mono # (Auto) 1.1 th/mm3 (0.0-0.9); Mono % (Auto) 12.8 % (0.0-8.0); Neut # (Auto) 6.2 th/mm3 (1.8-7.7); Neut % (Auto) 74.8 % (16.0-70.0); Platelet Count 94 th/mm3 (150-450); Red Blood Count 2.99 mil/mm3 (4.00-5.30); Red Cell Distribution Width 21.5 % (11.6-17.2); White Blood Count 8.3 th/mm3 (4.0-11.0)
[2018-01-03 06:10] LABS: Prothrombin Time 20.1 sec (9.8-11.6)
[2018-01-03 06:19] LABS: Calcium 7.2 mg/dL (8.5-10.1); Carbon Dioxide 21.6 meq/L (21.0-32.0); Magnesium 1.2 mg/dL (1.5-2.5); Phosphorus 2.9 mg/dL (2.5-4.9); Potassium 3.4 meq/L (3.5-5.1)
[2018-01-03 06:29] LABS: Total Protein 6.2 g/dL (6.4-8.2)
[2018-01-03 07:03] LABS: Platelet Morphology Normal (Normal)
--- NOTE | 2018-01-03 09:22 | P.DCO ---
- Physical Therapy Order: Evaluate and treat, Improve ambulation, Strength and gait training - Home Health Nursing Order: Medical education, Medication education-adverse effect, Nursing assessment with vital signs - Certification I have seen patient Debra Murray on 01/03/18. My clinical findings support the need for the requested home health care services because: Deconditioned with increased weakness I certify that my clinical findings support that this patient is homebound because: Need for psychosocial assistance
[2018-01-03] MEDS: Multivit/Folic Acid/Minerals Chewable Tablets CHEW SCH (09:39)
[2018-01-03] MEDS: Phytonadione 5 MG/SWFI 5 ML Oral Syringe PO SCH (09:39)
[2018-01-03] MEDS: Mupirocin 2% Nasal Oint Topical Syringe EACH NARE SCH ×2 (09:39→21:10)
[2018-01-03] MEDS: Calcium Carbonate 500 MG Tablet PO SCH ×3 (09:39→17:35)
--- NOTE | 2018-01-03 11:13 | P.PN ---
Subjective Interval history: Follow-up GI bleed and ascites with states she is doing okay. Tolerated EGD which showed gastropathy and gastritis status post biopsy. Discussed with nursing, patient receiving electrolyte replacement Physical Exam Vital signs: Vital Signs 01/02/18 12:00 01/02/18 13:00 01/02/18 13:01 Temperature Pulse Rate 61 68 64 Respiratory Rate 22 17 27 H Blood Pressure 95/62 L 108/65 Pulse Oximetry 100 99 100 01/02/18 14:00 01/02/18 15:00 01/02/18 15:15 Temperature Pulse Rate 74 63 55 L Respiratory Rate 22 18 13 Blood Pressure 98/62 L 100/57 L 92/52 L Pulse Oximetry 97 100 100 01/02/18 15:30 01/02/18 15:45 01/02/18 15:59 Temperature Pulse Rate 67 68 67 Respiratory Rate 25 H 25 H 26 H Blood Pressure 97/55 L 87/52 L 93/56 L Pulse Oximetry 99 99 100 01/02/18 16:00 01/02/18 16:16 01/02/18 16:21 Temperature 99.0 F Pulse Rate 60 78 78 Respiratory Rate 26 H 20 16 Blood Pressure 102/58 L 119/59 L 119/59 L Pulse Oximetry 99 95 100 01/02/18 16:31 01/02/18 16:45 01/02/18 16:54 Temperature 98.8 F Pulse Rate 77 63 77 Respiratory Rate 22 21 18 Blood Pressure 123/69 110/57 L 123/53 L Pulse Oximetry 100 100 100 01/02/18 19:10 01/02/18 20:00 01/03/18 00:00 Temperature 98.9 F Pulse Rate 70 84 Respiratory Rate 17 Blood Pressure 125/66 Pulse Oximetry 97 97 97 01/03/18 04:00 01/03/18 08:00 Temperature 98.7 F Pulse Rate 66 73 Respiratory Rate 19 19 Blood Pressure 89/46 L 130/63 Pulse Oximetry 96 97 Intake & Output 01/02/18 01/03/18 01/03/18 18:59 06:59 18:59 Intake Total 760 / 760 2150 / 2150 200 / 200 Balance 760 / 760 2150 / 2150 200 / 200 Weight 80.7 kg Intake: IV 460 / 460 1250 / 1250 200 / 200 Protonix Inj 80 MG In NS Inj 100 / 100 100 ML @ 10 mls/hr IV.CONT CONT COUNT INCLUDES THE [facility] Rx#:[id number] NS Inj 1,000 ML @ 84 mls/hr IV. 1000 / 1000 CONT .[id number] COUNT INCLUDES THE [facility] Rx#:[id number] Flexbumin 25% Inj 50 ML @ 60 50 / 50 50 / 50 mls/hr IV.SIG Q12H COUNT INCLUDES THE [facility] Rx#: [id number] Calcium Gluconate Inj 1 GM In 110 / 110 D5W Inj 100 ML @ 110 mls/hr IV. SIG ONCE ONE Rx#:[id number] Magnesium Sulfate Inj 4 GM In 100 / 100 NS Inj 92 ML @ 50 mls/hr IV.SIG UNSCH PRN Rx#:[id number] Zosyn 3.375 GM Premix 50 ML @ 100 / 100 50 / 50 50 / 50 100 mls/hr IV.SIG Q6H COUNT INCLUDES THE [facility] Rx#: [id number] KCl 20 mEq Premix Inj 20 meq In 200 / 200 100 / 100 100 ml @ 50 mls/hr IV.SIG Q2H COUNT INCLUDES THE [facility] Rx#:[id number] Oral 500 / 500 Anesthesia Amount 300 / 300 Intake (Blood Product) Amt 0 / 0 400 / 400 Rbc As-3 Leukoreduced Unit 0 / 0 400 / 400 [id number] Other: # Voids 6 4 # Bowel Movements 6 3 Narrative: GEN: Ill-appearing female in bed HEENT: (+) scleral icterus, no nystagmus, PERRL CARDIO: Regular rate and rhythm RESP: Diminished bibasilar breath sounds ABD: Soft, moderately distended, (+) fluid wave, no tenderness, no guarding or rebound EXT: lower extremity edema SKIN: Significant jaundice NEURO: A&Ox3. No tremor - Urinary Catheter Management Indwelling Urethral Catheter Cath placed during this visit: yes, but has since been removed by the nurse Reason for continuing: Continue criteria not met Insertion date: 12/30/17 Insertion time: 23:06 Removal date: 01/01/18 Removal time: 09:56 Results - Labs CBC & Chem 7: 01/03/18 05:13 01/03/18 05:13 Laboratory Results - last 24 hr 12/30/17 01/02/18 01/02/18 23:15 12:36 15:37 WBC RBC Hgb Hct MCV MCH MCHC RDW Plt Count MPV Prelim Diff (Auto) Neut % (Auto) Lymph % (Auto) [place] % (Auto) Eos % (Auto) Baso % (Auto) Neut # (Auto) Lymph # (Auto) [place] # (Auto) Eos # (Auto) Baso # (Auto) WBC Differential Diff Scan Differential Comment Platelet Estimate Platelet Morphology PT INR Sodium Potassium Chloride Carbon Dioxide Anion Gap BUN Creatinine Estimated GFR POC Glucose Random Glucose Calcium Prot Corrected Calcium Phosphorus Magnesium Total Bilirubin AST ALT Alkaline Phosphatase Ammonia Total Protein Albumin Peritoneal RBC Periton Nuc Cells Periton Neutrophils Periton Lymphocytes Peritoneal Monocytes Periton Mesothelial Periton Histiocytes Peritoneal Tot Protein 1.1 Peritoneal Albumin 0.4 Peritoneal LDH 82 Peritoneal Glucose 141 Peritoneal Amylase 6 Nasal Screen MRSA (PCR) Blood Type O Negative Antibody Screen Negative MTS Gel Crossmatch See Detail See Detail 01/02/18 01/02/18 01/02/18 15:37 16:28 16:40 WBC RBC Hgb Hct MCV MCH MCHC RDW Plt Count MPV Prelim Diff (Auto) Neut % (Auto) Lymph % (Auto) [place] % (Auto) Eos % (Auto) Baso % (Auto) Neut # (Auto) Lymph # (Auto) [place] # (Auto) Eos # (Auto) Baso # (Auto) WBC Differential Diff Scan Differential Comment Platelet Estimate Platelet Morphology PT INR Sodium Potassium 2.6 L* Chloride Carbon Dioxide Anion Gap BUN Creatinine Estimated GFR POC Glucose Random Glucose Calcium Prot Corrected Calcium Phosphorus Magnesium Total Bilirubin AST ALT Alkaline Phosphatase Ammonia Total Protein Albumin Peritoneal RBC 48 H Periton Nuc Cells 343 H Periton Neutrophils 17 Periton Lymphocytes 26 Peritoneal Monocytes 36 Periton Mesothelial 12 Periton Histiocytes 9 Peritoneal Tot Protein Peritoneal Albumin Peritoneal LDH Peritoneal Glucose Peritoneal Amylase Nasal Screen MRSA (PCR) Mrsa detected Blood Type Antibody Screen MTS Gel Crossmatch 01/02/18 01/03/18 01/03/18 16:58 00:17 05:13 WBC RBC Hgb Hct MCV MCH MCHC RDW Plt Count MPV Prelim Diff (Auto) Neut % (Auto) Lymph % (Auto) [place] % (Auto) Eos % (Auto) Baso % (Auto) Neut # (Auto) Lymph # (Auto) [place] # (Auto) Eos # (Auto) Baso # (Auto) WBC Differential Diff Scan Differential Comment Platelet Estimate Platelet Morphology PT 20.1 H INR 2.0 Sodium Potassium Chloride Carbon Dioxide Anion Gap BUN Creatinine Estimated GFR POC Glucose 97 136 H Random Glucose Calcium Prot Corrected Calcium Phosphorus Magnesium Total Bilirubin AST ALT Alkaline Phosphatase Ammonia Total Protein Albumin Peritoneal RBC Periton Nuc Cells Periton Neutrophils Periton Lymphocytes Peritoneal Monocytes Periton Mesothelial Periton Histiocytes Peritoneal Tot Protein Peritoneal Albumin Peritoneal LDH Peritoneal Glucose Peritoneal Amylase Nasal Screen MRSA (PCR) Blood Type Antibody Screen MTS Gel Crossmatch 01/03/18 01/03/18 01/03/18 05:13 05:13 05:13 WBC 8.3 RBC 2.99 L Hgb 8.5 L Hct 25.1 L MCV 84.0 MCH 28.3 MCHC 33.7 RDW 21.5 H Plt Count 94 L MPV 8.8 Prelim Diff (Auto) Slide review pending Neut % (Auto) 74.8 H Lymph % (Auto) 10.4 [place] % (Auto) 12.8 H Eos % (Auto) 1.7 Baso % (Auto) 0.3 Neut # (Auto) 6.2 Lymph # (Auto) 0.9 L [place] # (Auto) 1.1 H Eos # (Auto) 0.1 Baso # (Auto) 0.0 WBC Differential . Diff Scan Auto diff confirmed Differential Comment . Platelet Estimate Low L Platelet Morphology Normal PT INR Sodium 137 Potassium 3.4 L D Chloride 105 Carbon Dioxide 21.6 Anion Gap 10 BUN 7 Creatinine 1.38 H Estimated GFR 41 L POC Glucose Random Glucose 94 Calcium 7.2 L* Prot Corrected Calcium 7.7 L D Phosphorus 2.9 Magnesium 1.2 L Total Bilirubin 28.8 H AST 54 H ALT 30 Alkaline Phosphatase 102 Ammonia 75 H Total Protein 6.2 L D Albumin 2.0 L Peritoneal RBC Periton Nuc Cells Periton Neutrophils Periton Lymphocytes Peritoneal Monocytes Periton Mesothelial Periton Histiocytes Peritoneal Tot Protein Peritoneal Albumin Peritoneal LDH Peritoneal Glucose Peritoneal Amylase Nasal Screen MRSA (PCR) Blood Type Antibody Screen MTS Gel Crossmatch Microbiology 12/30/17 23:20 Blood - Peripheral Aerobic Blood Culture - Preliminary No growth in 4 days 12/30/17 23:20 Blood - Peripheral Anaerobic Blood Culture - Preliminary No growth in 4 days 12/30/17 23:25 Blood - Peripheral Aerobic Blood Culture - Preliminary No growth in 4 days 12/30/17 23:25 Blood - Peripheral Anaerobic Blood Culture - Preliminary No growth in 4 days 12/30/17 23:00 Catheterized Urine Urine Culture - Final Lactobacillus species - Imaging Impressions Paracentesis Ultrasound 01/02/18 00:00 CONCLUSION: 1. Uncomplicated ultrasound-guided paracentesis. - Procedures EGD and paracentesis Assessment and Plan - Assessment (1) Liver failure Code(s): K72.90 - Hepatic failure, unspecified without coma Status: Acute - Plan 47-year-old female with HCV cirrhosis medication noncompliance with history of GI bleeds presents with likely recurrent GI bleed and significant hepatic encephalopathy. Plan by systems: Neurologic: Acute metabolic encephalopathy. Resolved Acute hepatic encephalopathy. Resolved Frequent neuro checks Avoid long-acting sedatives Increase lactulose to 4 times daily, rifaximin started on admission; Monitor for signs of alcohol withdrawal, unclear if patient is still abusing EtOH Thiamine supplementation, MVI Respiratory: Aggressive pulmonary toilet Wean oxygen by nasal cannula for goal SPO2 greater than 90% Head of bed elevated PRN nebs Cardiovascular: Keep on telemetry Renal: Acute kidney injury superimposed on chronic renal insufficiency, unknown stage Discontinue Pena start purewick -- Strict I/Os Daily BMP FEN/GI: HCV cirrhosis Acute liver dysfunction superimposed on end-stage liver disease GI bleeding Severe hypokalemia Severe hypocalcemia Severe acute protein calorie malnutrition Ascites status post paracentesis ICU electrolyte protocol Aggressive electrolyte replacement, check Mg++ GI consult-- Patient is now a Child's C cirrhotic (had been B on discharge in August) with MELD score of 30 (had been a MELD of 11 on last discharge) Lactulose and rifaximin as noted above, recheck ammonia tomorrow Trend H&H, s/p 2 U PRBCs EGD shows gastropathy and gastritis status post biopsy. Follow-up pathology switch to p.o. Protonix. We will not place on octreotide drip as the patient has recent EGD and imaging suggestive that she does not have variceal disease Diagnostic and therapeutic ultrasound paracentesis studies without evidence of infection discontinue antibiotic Continue IV albumin and Lasix Heme/ID: Anemia secondary to acute blood loss. Improved Coagulopathy secondary to end-stage liver disease Urinary tract infection culture with lactobacillus Discontinue antibiotic s/p 2 units PRBC Trend H&H Daily INR Endocrine: -- SSI Prophylaxis: GI Prophylaxis Protonix DVT Prophylaxis -- SCDs Hold pharmacologic DVT prophylaxis in the setting of GI bleeding Lines: Peripheral IVs Dispo: May transfer to [facility] VN and PT. Cane needed
[2018-01-03] MEDS: Magnesium Oxide 400 MG Tablet PO PRN (11:30)
[2018-01-03] MEDS: Albumin Human 25% Inj 50 ML IV.SIG SCH (11:31)
--- NOTE | 2018-01-03 12:22 | P.PNGI ---
Subjective Interval history: Patient is dozing and appears more comfortable in the bed this a.m. Denies any acute nausea vomiting or abdominal pain Discussed supportive care and alcohol abstinence patient states she is going to do better after speaking with her son who is her encouragement Status post EGD on 01/02/2018 <Aliza Holguin - Last Filed: 01/03/18 12:23> Physical Exam Vital signs: Vital Signs 01/02/18 13:00 01/02/18 13:01 01/02/18 14:00 Temperature Pulse Rate 68 64 74 Respiratory Rate 17 27 H 22 Blood Pressure 108/65 98/62 L Pulse Oximetry 99 100 97 01/02/18 15:00 01/02/18 15:15 01/02/18 15:30 Temperature Pulse Rate 63 55 L 67 Respiratory Rate 18 13 25 H Blood Pressure 100/57 L 92/52 L 97/55 L Pulse Oximetry 100 100 99 01/02/18 15:45 01/02/18 15:59 01/02/18 16:00 Temperature Pulse Rate 68 67 60 Respiratory Rate 25 H 26 H 26 H Blood Pressure 87/52 L 93/56 L 102/58 L Pulse Oximetry 99 100 99 01/02/18 16:16 01/02/18 16:21 01/02/18 16:31 Temperature 99.0 F Pulse Rate 78 78 77 Respiratory Rate 20 16 22 Blood Pressure 119/59 L 119/59 L 123/69 Pulse Oximetry 95 100 100 01/02/18 16:45 01/02/18 16:54 01/02/18 19:10 Temperature 98.8 F Pulse Rate 63 77 Respiratory Rate 21 18 Blood Pressure 110/57 L 123/53 L Pulse Oximetry 100 100 97 01/02/18 20:00 01/03/18 00:00 01/03/18 04:00 Temperature 98.9 F Pulse Rate 70 84 66 Respiratory Rate 17 19 Blood Pressure 125/66 89/46 L Pulse Oximetry 97 97 96 01/03/18 08:00 Temperature 98.7 F Pulse Rate 73 Respiratory Rate 19 Blood Pressure 130/63 Pulse Oximetry 97 Intake & Output 01/02/18 01/03/18 01/03/18 18:59 06:59 18:59 Intake Total 760 / 760 2150 / 2150 200 / 200 Balance 760 / 760 2150 / 2150 200 / 200 Weight 80.7 kg Intake: IV 460 / 460 1250 / 1250 200 / 200 Protonix Inj 80 MG In NS Inj 100 / 100 100 ML @ 10 mls/hr IV.CONT CONT [facility] Rx#:[id number] NS Inj 1,000 ML @ 84 mls/hr IV. 1000 / 1000 CONT .[id number] [facility] Rx#:[id number] Flexbumin 25% Inj 50 ML @ 60 50 / 50 50 / 50 mls/hr IV.SIG Q12H [facility] Rx#: [id number] Calcium Gluconate Inj 1 GM In 110 / 110 D5W Inj 100 ML @ 110 mls/hr IV. SIG ONCE ONE Rx#:[id number] Magnesium Sulfate Inj 4 GM In 100 / 100 NS Inj 92 ML @ 50 mls/hr IV.SIG UNSCH PRN Rx#:[id number] Zosyn 3.375 GM Premix 50 ML @ 100 / 100 50 / 50 50 / 50 100 mls/hr IV.SIG Q6H [facility] Rx#: [id number] KCl 20 mEq Premix Inj 20 meq In 200 / 200 100 / 100 100 ml @ 50 mls/hr IV.SIG Q2H [facility] Rx#:[id number] Oral 500 / 500 Anesthesia Amount 300 / 300 Intake (Blood Product) Amt 0 / 0 400 / 400 Rbc As-3 Leukoreduced Unit 0 / 0 400 / 400 [id number] Other: # Voids 6 4 # Bowel Movements 6 3 - Constitutional no acute distress, chronically ill appearing, disheveled - Routine HEENT Exam Head: Present: normocephalic ENT: Present: mucous membranes moist - Routine Cardiovascular Exam Present: S1, S2 (Heart rate 60 sinus rhythm) - Routine Abdominal Exam Present: normoactive bowel sounds (Round, moderate distention no obvious abdominal pain) - Routine Neurological Exam Present: alert (Awakens easily) - Urinary Catheter Management Indwelling Urethral Catheter Cath placed during this visit: yes, but has since been removed by the nurse Reason for continuing: Continue criteria not met Insertion date: 12/30/17 Insertion time: 23:06 Removal date: 01/01/18 Removal time: 09:56 <Aliza Holguin - Last Filed: 01/03/18 12:23> Vital signs: Vital Signs 01/02/18 16:31 01/02/18 16:45 01/02/18 16:54 Temperature 98.8 F Pulse Rate 77 63 77 Respiratory Rate 22 21 18 Blood Pressure 123/69 110/57 L 123/53 L Pulse Oximetry 100 100 100 01/02/18 19:10 01/02/18 20:00 01/03/18 00:00 Temperature 98.9 F Pulse Rate 70 84 Respiratory Rate 17 Blood Pressure 125/66 Pulse Oximetry 97 97 97 01/03/18 04:00 01/03/18 08:00 01/03/18 12:00 Temperature 98.7 F 98.7 F Pulse Rate 66 73 74 Respiratory Rate 19 19 17 Blood Pressure 89/46 L 130/63 123/60 Pulse Oximetry 96 97 98 01/03/18 12:30 01/03/18 16:00 Temperature 98.2 F Pulse Rate 52 L Respiratory Rate 17 Blood Pressure 91/49 L Pulse Oximetry 100 98 Intake & Output 01/02/18 01/03/18 01/03/18 18:59 06:59 18:59 Intake Total 760 / 760 2150 / 2150 250 / 250 Balance 760 / 760 2150 / 2150 250 / 250 Weight 80.7 kg Intake: IV 460 / 460 1250 / 1250 250 / 250 Protonix Inj 80 MG In NS Inj 100 / 100 100 ML @ 10 mls/hr IV.CONT CONT [facility] Rx#:[id number] NS Inj 1,000 ML @ 84 mls/hr IV. 1000 / 1000 CONT .[id number] [facility] Rx#:[id number] Flexbumin 25% Inj 50 ML @ 60 50 / 50 100 / 100 mls/hr IV.SIG Q12H [facility] Rx#: [id number] Calcium Gluconate Inj 1 GM In 110 / 110 D5W Inj 100 ML @ 110 mls/hr IV. SIG ONCE ONE Rx#:[id number] Magnesium Sulfate Inj 4 GM In 100 / 100 NS Inj 92 ML @ 50 mls/hr IV.SIG UNSCH PRN Rx#:[id number] Zosyn 3.375 GM Premix 50 ML @ 100 / 100 50 / 50 50 / 50 100 mls/hr IV.SIG Q6H [facility] Rx#: [id number] KCl 20 mEq Premix Inj 20 meq In 200 / 200 100 / 100 100 ml @ 50 mls/hr IV.SIG Q2H [facility] Rx#:[id number] Oral 500 / 500 Anesthesia Amount 300 / 300 Intake (Blood Product) Amt 0 / 0 400 / 400 Rbc As-3 Leukoreduced Unit 0 / 0 400 / 400 [id number] Other: # Voids 6 4 # Bowel Movements 6 3 - Urinary Catheter Management Indwelling Urethral Catheter Cath placed during this visit: no <Juan Manuel Davidson A - Last Filed: 01/03/18 16:23> Results - Labs CBC & Chem 7: 01/03/18 05:13 01/03/18 05:13 Laboratory Results - last 24 hr 12/30/17 01/02/18 01/02/18 23:15 12:36 15:37 WBC RBC Hgb Hct MCV MCH MCHC RDW Plt Count MPV Prelim Diff (Auto) Neut % (Auto) Lymph % (Auto) [place] % (Auto) Eos % (Auto) Baso % (Auto) Neut # (Auto) Lymph # (Auto) [place] # (Auto) Eos # (Auto) Baso # (Auto) WBC Differential Diff Scan Differential Comment Platelet Estimate Platelet Morphology PT INR Sodium Potassium Chloride Carbon Dioxide Anion Gap BUN Creatinine Estimated GFR POC Glucose Random Glucose Calcium Prot Corrected Calcium Phosphorus Magnesium Total Bilirubin AST ALT Alkaline Phosphatase Ammonia Total Protein Albumin Peritoneal RBC Periton Nuc Cells Periton Neutrophils Periton Lymphocytes Peritoneal Monocytes Periton Mesothelial Periton Histiocytes Peritoneal Tot Protein 1.1 Peritoneal Albumin 0.4 Peritoneal LDH 82 Peritoneal Glucose 141 Peritoneal Amylase 6 Nasal Screen MRSA (PCR) Blood Type O Negative Antibody Screen Negative MTS Gel Crossmatch See Detail See Detail 01/02/18 01/02/18 01/02/18 15:37 16:28 16:40 WBC RBC Hgb Hct MCV MCH MCHC RDW Plt Count MPV Prelim Diff (Auto) Neut % (Auto) Lymph % (Auto) [place] % (Auto) Eos % (Auto) Baso % (Auto) Neut # (Auto) Lymph # (Auto) [place] # (Auto) Eos # (Auto) Baso # (Auto) WBC Differential Diff Scan Differential Comment Platelet Estimate Platelet Morphology PT INR Sodium Potassium 2.6 L* Chloride Carbon Dioxide Anion Gap BUN Creatinine Estimated GFR POC Glucose Random Glucose Calcium Prot Corrected Calcium Phosphorus Magnesium Total Bilirubin AST ALT Alkaline Phosphatase Ammonia Total Protein Albumin Peritoneal RBC 48 H Periton Nuc Cells 343 H Periton Neutrophils 17 Periton Lymphocytes 26 Peritoneal Monocytes 36 Periton Mesothelial 12 Periton Histiocytes 9 Peritoneal Tot Protein Peritoneal Albumin Peritoneal LDH Peritoneal Glucose Peritoneal Amylase Nasal Screen MRSA (PCR) Mrsa detected Blood Type Antibody Screen MTS Gel Crossmatch 01/02/18 01/03/18 01/03/18 16:58 00:17 05:13 WBC RBC Hgb Hct MCV MCH MCHC RDW Plt Count MPV Prelim Diff (Auto) Neut % (Auto) Lymph % (Auto) [place] % (Auto) Eos % (Auto) Baso % (Auto) Neut # (Auto) Lymph # (Auto) [place] # (Auto) Eos # (Auto) Baso # (Auto) WBC Differential Diff Scan Differential Comment Platelet Estimate Platelet Morphology PT 20.1 H INR 2.0 Sodium Potassium Chloride Carbon Dioxide Anion Gap BUN Creatinine Estimated GFR POC Glucose 97 136 H Random Glucose Calcium Prot Corrected Calcium Phosphorus Magnesium Total Bilirubin AST ALT Alkaline Phosphatase Ammonia Total Protein Albumin Peritoneal RBC Periton Nuc Cells Periton Neutrophils Periton Lymphocytes Peritoneal Monocytes Periton Mesothelial Periton Histiocytes Peritoneal Tot Protein Peritoneal Albumin Peritoneal LDH Peritoneal Glucose Peritoneal Amylase Nasal Screen MRSA (PCR) Blood Type Antibody Screen MTS Gel Crossmatch 01/03/18 01/03/18 01/03/18 05:13 05:13 05:13 WBC 8.3 RBC 2.99 L Hgb 8.5 L Hct 25.1 L MCV 84.0 MCH 28.3 MCHC 33.7 RDW 21.5 H Plt Count 94 L MPV 8.8 Prelim Diff (Auto) Slide review pending Neut % (Auto) 74.8 H Lymph % (Auto) 10.4 [place] % (Auto) 12.8 H Eos % (Auto) 1.7 Baso % (Auto) 0.3 Neut # (Auto) 6.2 Lymph # (Auto) 0.9 L [place] # (Auto) 1.1 H Eos # (Auto) 0.1 Baso # (Auto) 0.0 WBC Differential . Diff Scan Auto diff confirmed Differential Comment . Platelet Estimate Low L Platelet Morphology Normal PT INR Sodium 137 Potassium 3.4 L D Chloride 105 Carbon Dioxide 21.6 Anion Gap 10 BUN 7 Creatinine 1.38 H Estimated GFR 41 L POC Glucose Random Glucose 94 Calcium 7.2 L* Prot Corrected Calcium 7.7 L D Phosphorus 2.9 Magnesium 1.2 L Total Bilirubin 28.8 H AST 54 H ALT 30 Alkaline Phosphatase 102 Ammonia 75 H Total Protein 6.2 L D Albumin 2.0 L Peritoneal RBC Periton Nuc Cells Periton Neutrophils Periton Lymphocytes Peritoneal Monocytes Periton Mesothelial Periton Histiocytes Peritoneal Tot Protein Peritoneal Albumin Peritoneal LDH Peritoneal Glucose Peritoneal Amylase Nasal Screen MRSA (PCR) Blood Type Antibody Screen MTS Gel Crossmatch 01/03/18 11:39 WBC RBC Hgb Hct MCV MCH MCHC RDW Plt Count MPV Prelim Diff (Auto) Neut % (Auto) Lymph % (Auto) [place] % (Auto) Eos % (Auto) Baso % (Auto) Neut # (Auto) Lymph # (Auto) [place] # (Auto) Eos # (Auto) Baso # (Auto) WBC Differential Diff Scan Differential Comment Platelet Estimate Platelet Morphology PT INR Sodium Potassium Chloride Carbon Dioxide Anion Gap BUN Creatinine Estimated GFR POC Glucose 193 H Random Glucose Calcium Prot Corrected Calcium Phosphorus Magnesium Total Bilirubin AST ALT Alkaline Phosphatase Ammonia Total Protein Albumin Peritoneal RBC Periton Nuc Cells Periton Neutrophils Periton Lymphocytes Peritoneal Monocytes Periton Mesothelial Periton Histiocytes Peritoneal Tot Protein Peritoneal Albumin Peritoneal LDH Peritoneal Glucose Peritoneal Amylase Nasal Screen MRSA (PCR) Blood Type Antibody Screen MTS Gel Crossmatch Microbiology 12/30/17 23:20 Blood - Peripheral Aerobic Blood Culture - Preliminary No growth in 4 days 12/30/17 23:20 Blood - Peripheral Anaerobic Blood Culture - Preliminary No growth in 4 days 12/30/17 23:25 Blood - Peripheral Aerobic Blood Culture - Preliminary No growth in 4 days 12/30/17 23:25 Blood - Peripheral Anaerobic Blood Culture - Preliminary No growth in 4 days 12/30/17 23:00 Catheterized Urine Urine Culture - Final Lactobacillus species - Imaging Impressions Paracentesis Ultrasound 01/02/18 00:00 CONCLUSION: 1. Uncomplicated ultrasound-guided paracentesis. - Procedures EGD and paracentesis <Aliza Holguin - Last Filed: 01/03/18 12:23> - Labs CBC & Chem 7: 01/03/18 05:13 01/03/18 05:13 Laboratory Results - last 24 hr 12/30/17 01/02/18 01/02/18 23:15 12:36 15:37 WBC RBC Hgb Hct MCV MCH MCHC RDW Plt Count MPV Prelim Diff (Auto) Neut % (Auto) Lymph % (Auto) [place] % (Auto) Eos % (Auto) Baso % (Auto) Neut # (Auto) Lymph # (Auto) [place] # (Auto) Eos # (Auto) Baso # (Auto) WBC Differential Diff Scan Differential Comment Platelet Estimate Platelet Morphology PT INR Sodium Potassium Chloride Carbon Dioxide Anion Gap BUN Creatinine Estimated GFR POC Glucose Random Glucose Calcium Prot Corrected Calcium Phosphorus Magnesium Total Bilirubin AST ALT Alkaline Phosphatase Ammonia Total Protein Albumin Peritoneal RBC Periton Nuc Cells Periton Neutrophils Periton Lymphocytes Peritoneal Monocytes Periton Mesothelial Periton Histiocytes Peritoneal Tot Protein 1.1 Peritoneal Albumin 0.4 Peritoneal LDH 82 Peritoneal Glucose 141 Peritoneal Amylase 6 Nasal Screen MRSA (PCR) Blood Type O Negative Antibody Screen Negative MTS Gel Crossmatch See Detail See Detail 01/02/18 01/02/18 01/02/18 15:37 16:28 16:40 WBC RBC Hgb Hct MCV MCH MCHC RDW Plt Count MPV Prelim Diff (Auto) Neut % (Auto) Lymph % (Auto) [place] % (Auto) Eos % (Auto) Baso % (Auto) Neut # (Auto) Lymph # (Auto) [place] # (Auto) Eos # (Auto) Baso # (Auto) WBC Differential Diff Scan Differential Comment Platelet Estimate Platelet Morphology PT INR Sodium Potassium 2.6 L* Chloride Carbon Dioxide Anion Gap BUN Creatinine Estimated GFR POC Glucose Random Glucose Calcium Prot Corrected Calcium Phosphorus Magnesium Total Bilirubin AST ALT Alkaline Phosphatase Ammonia Total Protein Albumin Peritoneal RBC 48 H Periton Nuc Cells 343 H Periton Neutrophils 17 Periton Lymphocytes 26 Peritoneal Monocytes 36 Periton Mesothelial 12 Periton Histiocytes 9 Peritoneal Tot Protein Peritoneal Albumin Peritoneal LDH Peritoneal Glucose Peritoneal Amylase Nasal Screen MRSA (PCR) Mrsa detected Blood Type Antibody Screen MTS Gel Crossmatch 01/02/18 01/03/18 01/03/18 16:58 00:17 05:13 WBC RBC Hgb Hct MCV MCH MCHC RDW Plt Count MPV Prelim Diff (Auto) Neut % (Auto) Lymph % (Auto) [place] % (Auto) Eos % (Auto) Baso % (Auto) Neut # (Auto) Lymph # (Auto) [place] # (Auto) Eos # (Auto) Baso # (Auto) WBC Differential Diff Scan Differential Comment Platelet Estimate Platelet Morphology PT 20.1 H INR 2.0 Sodium Potassium Chloride Carbon Dioxide Anion Gap BUN Creatinine Estimated GFR POC Glucose 97 136 H Random Glucose Calcium Prot Corrected Calcium Phosphorus Magnesium Total Bilirubin AST ALT Alkaline Phosphatase Ammonia Total Protein Albumin Peritoneal RBC Periton Nuc Cells Periton Neutrophils Periton Lymphocytes Peritoneal Monocytes Periton Mesothelial Periton Histiocytes Peritoneal Tot Protein Peritoneal Albumin Peritoneal LDH Peritoneal Glucose Peritoneal Amylase Nasal Screen MRSA (PCR) Blood Type Antibody Screen MTS Gel Crossmatch 01/03/18 01/03/18 01/03/18 05:13 05:13 05:13 WBC 8.3 RBC 2.99 L Hgb 8.5 L Hct 25.1 L MCV 84.0 MCH 28.3 MCHC 33.7 RDW 21.5 H Plt Count 94 L MPV 8.8 Prelim Diff (Auto) Slide review pending Neut % (Auto) 74.8 H Lymph % (Auto) 10.4 [place] % (Auto) 12.8 H Eos % (Auto) 1.7 Baso % (Auto) 0.3 Neut # (Auto) 6.2 Lymph # (Auto) 0.9 L [place] # (Auto) 1.1 H Eos # (Auto) 0.1 Baso # (Auto) 0.0 WBC Differential . Diff Scan Auto diff confirmed Differential Comment . Platelet Estimate Low L Platelet Morphology Normal PT INR Sodium 137 Potassium 3.4 L D Chloride 105 Carbon Dioxide 21.6 Anion Gap 10 BUN 7 Creatinine 1.38 H Estimated GFR 41 L POC Glucose Random Glucose 94 Calcium 7.2 L* Prot Corrected Calcium 7.7 L D Phosphorus 2.9 Magnesium 1.2 L Total Bilirubin 28.8 H AST 54 H ALT 30 Alkaline Phosphatase 102 Ammonia 75 H Total Protein 6.2 L D Albumin 2.0 L Peritoneal RBC Periton Nuc Cells Periton Neutrophils Periton Lymphocytes Peritoneal Monocytes Periton Mesothelial Periton Histiocytes Peritoneal Tot Protein Peritoneal Albumin Peritoneal LDH Peritoneal Glucose Peritoneal Amylase Nasal Screen MRSA (PCR) Blood Type Antibody Screen MTS Gel Crossmatch 01/03/18 11:39 WBC RBC Hgb Hct MCV MCH MCHC RDW Plt Count MPV Prelim Diff (Auto) Neut % (Auto) Lymph % (Auto) [place] % (Auto) Eos % (Auto) Baso % (Auto) Neut # (Auto) Lymph # (Auto) [place] # (Auto) Eos # (Auto) Baso # (Auto) WBC Differential Diff Scan Differential Comment Platelet Estimate Platelet Morphology PT INR Sodium Potassium Chloride Carbon Dioxide Anion Gap BUN Creatinine Estimated GFR POC Glucose 193 H Random Glucose Calcium Prot Corrected Calcium Phosphorus Magnesium Total Bilirubin AST ALT Alkaline Phosphatase Ammonia Total Protein Albumin Peritoneal RBC Periton Nuc Cells Periton Neutrophils Periton Lymphocytes Peritoneal Monocytes Periton Mesothelial Periton Histiocytes Peritoneal Tot Protein Peritoneal Albumin Peritoneal LDH Peritoneal Glucose Peritoneal Amylase Nasal Screen MRSA (PCR) Blood Type Antibody Screen MTS Gel Crossmatch Microbiology 12/30/17 23:20 Blood - Peripheral Aerobic Blood Culture - Preliminary No growth in 4 days 12/30/17 23:20 Blood - Peripheral Anaerobic Blood Culture - Preliminary No growth in 4 days 12/30/17 23:25 Blood - Peripheral Aerobic Blood Culture - Preliminary No growth in 4 days 12/30/17 23:25 Blood - Peripheral Anaerobic Blood Culture - Preliminary No growth in 4 days <Juan Manuel Davidson - Last Filed: 01/03/18 16:23> Assessment and Plan - Plan 1. Anemia with history of gastrointestinal bleeding in the recent past, status post endoscopy in August 2017 that did not show any evidence of varices. The patient at the current time is not exhibiting any signs of active bleeding. 2. Hepatitis C, never been treated in the past. 3. 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 The patient is not a candidate for liver transplantation with the history of active alcohol use. 4. History of recurrent ascites, status post paracentesis several months ago and she is currently with the ascites again. 5. History of alcohol abuse. 6. Electrolyte imbalance with hypokalemia. 7. Hypercoagulable state with increasing PT and PTT secondary to chronic liver disease. 01/02/2018, EGD, findings include esophagus appeared normal, Portal hypertensive gastropathy was found in the entire examined stomach erythematous gastritis in the gastric antrum; biopsy done Normal duodenal mucosa in the bulb, second and third part Retroflexion normal. Discussed findings again with patient 01/03/2018 patient has had multiple bowel movements soft with no obvious bleeding. Pena catheter out sinus rhythm heart rate 60. Patient is drowsy but does respond to verbal stimuli abdomen continues to be distended, and round with positive bowel sounds. Anemia without any current obvious bleeding hemoglobin 8.5 Continue to monitor patient's liver disease. Patient is status post paracentesis on 01/02/2018, much better controlled respiratory rate Plan Diet per attending as tolerated, encourage hydration PPI Encouraged alcohol abstinence Monitor labs transfuse as needed Anti-emetics Supportive care Patient was seen per myself and Dr. Davidson, note was written on his behalf <Aliza Holguin - Last Filed: 01/03/18 12:23> - Attending Attestation Seen and examined, plan as above. Will follow up with you. <Juan Manuel Davidson - Last Filed: 01/03/18 16:23>
[2018-01-04] MEDS: Albumin Human 25% Inj 50 ML IV.SIG SCH ×2 (00:58→11:00)
[2018-01-04] MEDS: Insulin NovoLIN Regular Correctional Sugar Inj SQ SCH ×4 (01:00→18:10)
[2018-01-04] MEDS: Chlorhexidine Gluconate 2% 1 Pack (2 Cloths) TOPICAL SCH (03:09)
[2018-01-04 03:26] LABS: Baso % (Auto) 0.2 % (0.0-2.0); Eos # (Auto) 0.2 th/mm3 (0.0-0.4); Eos % (Auto) 2.2 % (0.0-4.0); Hematocrit 26.6 % (35.0-46.0); Hemoglobin 8.7 gm/dL (11.6-15.3); Lymph # (Auto) 0.8 th/mm3 (1.0-4.8); Lymph % (Auto) 9.1 % (9.0-44.0); Mean Corpuscular HGB Conc 32.6 % (32.0-36.0); Mean Corpuscular Hemoglobin 27.5 pg (27.0-34.0); Mean Corpuscular Volume 84.5 fL (80.0-100.0); Mono # (Auto) 0.6 th/mm3 (0.0-0.9); Mono % (Auto) 7.8 % (0.0-8.0); Neut # (Auto) 6.7 th/mm3 (1.8-7.7); Neut % (Auto) 80.7 % (16.0-70.0); Platelet Count 88 th/mm3 (150-450); Red Blood Count 3.15 mil/mm3 (4.00-5.30); Red Cell Distribution Width 21.9 % (11.6-17.2); White Blood Count 8.3 th/mm3 (4.0-11.0)
[2018-01-04 03:33] LABS: INR 1.8 Ratio; Prothrombin Time 18.7 sec (9.8-11.6)
[2018-01-04 04:04] LABS: Albumin 2.3 g/dL (3.4-5.0); Calcium 7.1 mg/dL (8.5-10.1); Carbon Dioxide 22.5 meq/L (21.0-32.0); Magnesium 1.3 mg/dL (1.5-2.5); Phosphorus 2.1 mg/dL (2.5-4.9); Total Protein 6.9 g/dL (6.4-8.2)
[2018-01-04 04:09] LABS: Potassium 2.7 meq/L (3.5-5.1)
[2018-01-04 04:18] LABS: Platelet Morphology Normal (Normal)
[2018-01-04 04:19] LABS: Burr Cells 1+
[2018-01-04] MEDS: Potassium Chlor 20 mEq Premix 20 MEQ/100 ML PIGGYBACK IV.SIG PRN ×3 (04:39→21:32)
[2018-01-04] MEDS: Potassium Phosphate 500 MG Soluble Tablet PO PRN (04:39)
[2018-01-04] MEDS: Furosemide 20 MG Tablet PO SCH (06:43)
[2018-01-04] MEDS: Spironolactone 25 MG Tablet PO SCH (08:57)
[2018-01-04] MEDS: Mupirocin 2% Nasal Oint Topical Syringe EACH NARE SCH ×2 (08:57→20:58)
[2018-01-04] MEDS: Calcium Carbonate 500 MG Tablet PO SCH ×3 (08:57→17:34)
[2018-01-04] MEDS: Multivit/Folic Acid/Minerals Chewable Tablets CHEW SCH (08:57)
--- NOTE | 2018-01-04 13:59 | P.PNGI ---
Subjective Interval history: Pt resting in bed. Denies any nausea or vomiting. Has been having some loose stools from the Lactulose. Denies abdominal pain. <HeladioJesika valdovinos - Last Filed: 01/04/18 13:51> Physical Exam Vital signs: Vital Signs 01/03/18 16:00 01/03/18 20:00 01/03/18 20:37 Temperature 98.2 F 98.5 F Pulse Rate 52 L 70 Respiratory Rate 17 18 Blood Pressure 91/49 L 126/57 L Pulse Oximetry 98 100 100 01/04/18 00:00 01/04/18 04:00 01/04/18 08:00 Temperature 98.7 F 98.9 F 98.7 F Pulse Rate 59 L 59 L 59 L Respiratory Rate 24 25 H 18 Blood Pressure 106/56 L 119/64 129/67 Pulse Oximetry 100 100 100 01/04/18 12:00 01/04/18 12:07 Temperature 98.9 F Pulse Rate 59 L Respiratory Rate 17 Blood Pressure 116/58 L Pulse Oximetry 100 100 Intake & Output 01/03/18 01/04/18 01/04/18 18:59 06:59 18:59 Intake Total 1400 / 1400 50 / 50 50 / 50 Output Total 3300 / 3300 Balance -1900 / -1900 50 / 50 50 / 50 Weight 85.5 kg Intake: IV 1400 / 1400 50 / 50 50 / 50 Protonix Inj 80 MG In NS Inj 50 / 50 100 ML @ 10 mls/hr IV.CONT CONT MARGARETTE Rx#:[id number] NS Inj 1,000 ML @ 84 mls/hr IV. 1000 / 1000 CONT .[id number] M[facility]TE Rx#:[id number] Flexbumin 25% Inj 50 ML @ 60 100 / 100 50 / 50 50 / 50 mls/hr IV.SIG Q12H M[facility]TE Rx#: [id number] Zosyn 3.375 GM Premix 50 ML @ 50 / 50 100 mls/hr IV.SIG Q6H MARG[facility]ETTE Rx#: [id number] KCl 20 mEq Premix Inj 20 meq In 100 / 100 100 ml @ 50 mls/hr IV.SIG Q2H MARGARETTE Rx#:[id number] Output: Urine 1650 / 1650 Urine/Stool Mix 1650 / 1650 Other: # Voids 3 # Bowel Movements 1 - Constitutional no acute distress - Routine HEENT Exam Head: Present: normocephalic, atraumatic Eye: Present: conjunctival icterus - Routine Respiratory Exam Absent: accessory muscle use - Routine Abdominal Exam Present: soft, normoactive bowel sounds, distended. Absent: tenderness - Routine Skin Exam Present: jaundice - Routine Neurological Exam Present: alert, oriented X3 - Urinary Catheter Management Indwelling Urethral Catheter Cath placed during this visit: yes, but has since been removed by the nurse Reason for continuing: Continue criteria not met Insertion date: 12/30/17 Insertion time: 23:06 Removal date: 01/01/18 Removal time: 09:56 <Jesika Troncoso - Last Filed: 01/04/18 13:51> Vital signs: Vital Signs 01/03/18 16:00 01/03/18 20:00 01/03/18 20:37 Temperature 98.2 F 98.5 F Pulse Rate 52 L 70 Respiratory Rate 17 18 Blood Pressure 91/49 L 126/57 L Pulse Oximetry 98 100 100 01/04/18 00:00 01/04/18 04:00 01/04/18 08:00 Temperature 98.7 F 98.9 F 98.7 F Pulse Rate 59 L 59 L 59 L Respiratory Rate 24 25 H 18 Blood Pressure 106/56 L 119/64 129/67 Pulse Oximetry 100 100 100 01/04/18 12:00 01/04/18 12:07 Temperature 98.9 F Pulse Rate 59 L Respiratory Rate 17 Blood Pressure 116/58 L Pulse Oximetry 100 100 Intake & Output 01/03/18 01/04/18 01/04/18 18:59 06:59 18:59 Intake Total 1400 / 1400 50 / 50 50 / 50 Output Total 3300 / 3300 Balance -1900 / -1900 50 / 50 50 / 50 Weight 85.5 kg Intake: IV 1400 / 1400 50 / 50 50 / 50 Protonix Inj 80 MG In NS Inj 50 / 50 100 ML @ 10 mls/hr IV.CONT CONT M[facility]TE Rx#:[id number] NS Inj 1,000 ML @ 84 mls/hr IV. 1000 / 1000 CONT .[id number] [facility]TE Rx#:[id number] Flexbumin 25% Inj 50 ML @ 60 100 / 100 50 / 50 50 / 50 mls/hr IV.SIG Q12H [facility]TE Rx#: [id number] Zosyn 3.375 GM Premix 50 ML @ 50 / 50 100 mls/hr IV.SIG Q6H [facility]TE Rx#: [id number] KCl 20 mEq Premix Inj 20 meq In 100 / 100 100 ml @ 50 mls/hr IV.SIG Q2H MARG[facility]TE Rx#:[id number] Output: Urine 1650 / 1650 Urine/Stool Mix 1650 / 1650 Other: # Voids 3 # Bowel Movements 1 - Urinary Catheter Management Indwelling Urethral Catheter Cath placed during this visit: no <Juan Manuel Davidson - Last Filed: 01/04/18 14:38> Results - Labs CBC & Chem 7: 01/04/18 03:11 01/04/18 11:53 Laboratory Results - last 24 hr 01/03/18 01/04/18 01/04/18 17:39 00:37 03:11 WBC 8.3 RBC 3.15 L Hgb 8.7 L Hct 26.6 L MCV 84.5 MCH 27.5 MCHC 32.6 RDW 21.9 H Plt Count 88 L MPV 9.0 Prelim Diff (Auto) Slide review pending Neut % (Auto) 80.7 H Lymph % (Auto) 9.1 [place] % (Auto) 7.8 Eos % (Auto) 2.2 Baso % (Auto) 0.2 Neut # (Auto) 6.7 Lymph # (Auto) 0.8 L [place] # (Auto) 0.6 Eos # (Auto) 0.2 Baso # (Auto) 0.0 WBC Differential . Diff Scan Auto diff confirmed Differential Comment . Platelet Estimate Low L Platelet Morphology Normal [place] Cells 1+ H Keratocytes Occ H PT INR Sodium Potassium Chloride Carbon Dioxide Anion Gap BUN Creatinine Estimated GFR POC Glucose 86 123 H Random Glucose Calcium Prot Corrected Calcium Phosphorus Magnesium Total Bilirubin AST ALT Alkaline Phosphatase Ammonia Total Protein Albumin 01/04/18 01/04/18 01/04/18 03:11 03:11 03:11 WBC RBC Hgb Hct MCV MCH MCHC RDW Plt Count MPV Prelim Diff (Auto) Neut % (Auto) Lymph % (Auto) [place] % (Auto) Eos % (Auto) Baso % (Auto) Neut # (Auto) Lymph # (Auto) [place] # (Auto) Eos # (Auto) Baso # (Auto) WBC Differential Diff Scan Differential Comment Platelet Estimate Platelet Morphology [place] Cells Keratocytes PT 18.7 H INR 1.8 Sodium 136 Potassium 2.7 L* Chloride 104 Carbon Dioxide 22.5 Anion Gap 10 BUN 8 Creatinine 1.38 H Estimated GFR 41 L POC Glucose Random Glucose 151 H Calcium 7.1 L* Prot Corrected Calcium 7.2 L* Phosphorus 2.1 L Magnesium 1.3 L Total Bilirubin 31.8 H AST 46 H ALT 30 Alkaline Phosphatase 107 Ammonia 92 H Total Protein 6.9 D Albumin 2.3 L 01/04/18 01/04/18 11:40 11:53 WBC RBC Hgb Hct MCV MCH MCHC RDW Plt Count MPV Prelim Diff (Auto) Neut % (Auto) Lymph % (Auto) [place] % (Auto) Eos % (Auto) Baso % (Auto) Neut # (Auto) Lymph # (Auto) [place] # (Auto) Eos # (Auto) Baso # (Auto) WBC Differential Diff Scan Differential Comment Platelet Estimate Platelet Morphology [place] Cells Keratocytes PT INR Sodium Potassium 2.4 L* Chloride Carbon Dioxide Anion Gap BUN Creatinine Estimated GFR POC Glucose 139 H Random Glucose Calcium Prot Corrected Calcium Phosphorus Magnesium Total Bilirubin AST ALT Alkaline Phosphatase Ammonia Total Protein Albumin Microbiology 12/30/17 23:20 Blood - Peripheral Aerobic Blood Culture - Final No growth in 5 days 12/30/17 23:20 Blood - Peripheral Anaerobic Blood Culture - Final No growth in 5 days 12/30/17 23:25 Blood - Peripheral Aerobic Blood Culture - Final No growth in 5 days 12/30/17 23:25 Blood - Peripheral Anaerobic Blood Culture - Final No growth in 5 days - Procedures EGD and paracentesis <Jesika Troncoso - Last Filed: 01/04/18 13:51> - Labs CBC & Chem 7: 01/04/18 03:11 01/04/18 11:53 Laboratory Results - last 24 hr 01/03/18 01/04/18 01/04/18 17:39 00:37 03:11 WBC 8.3 RBC 3.15 L Hgb 8.7 L Hct 26.6 L MCV 84.5 MCH 27.5 MCHC 32.6 RDW 21.9 H Plt Count 88 L MPV 9.0 Prelim Diff (Auto) Slide review pending Neut % (Auto) 80.7 H Lymph % (Auto) 9.1 [place] % (Auto) 7.8 Eos % (Auto) 2.2 Baso % (Auto) 0.2 Neut # (Auto) 6.7 Lymph # (Auto) 0.8 L [place] # (Auto) 0.6 Eos # (Auto) 0.2 Baso # (Auto) 0.0 WBC Differential . Diff Scan Auto diff confirmed Differential Comment . Platelet Estimate Low L Platelet Morphology Normal [place] Cells 1+ H Keratocytes Occ H PT INR Sodium Potassium Chloride Carbon Dioxide Anion Gap BUN Creatinine Estimated GFR POC Glucose 86 123 H Random Glucose Calcium Prot Corrected Calcium Phosphorus Magnesium Total Bilirubin AST ALT Alkaline Phosphatase Ammonia Total Protein Albumin 01/04/18 01/04/18 01/04/18 03:11 03:11 03:11 WBC RBC Hgb Hct MCV MCH MCHC RDW Plt Count MPV Prelim Diff (Auto) Neut % (Auto) Lymph % (Auto) [place] % (Auto) Eos % (Auto) Baso % (Auto) Neut # (Auto) Lymph # (Auto) [place] # (Auto) Eos # (Auto) Baso # (Auto) WBC Differential Diff Scan Differential Comment Platelet Estimate Platelet Morphology [place] Cells Keratocytes PT 18.7 H INR 1.8 Sodium 136 Potassium 2.7 L* Chloride 104 Carbon Dioxide 22.5 Anion Gap 10 BUN 8 Creatinine 1.38 H Estimated GFR 41 L POC Glucose Random Glucose 151 H Calcium 7.1 L* Prot Corrected Calcium 7.2 L* Phosphorus 2.1 L Magnesium 1.3 L Total Bilirubin 31.8 H AST 46 H ALT 30 Alkaline Phosphatase 107 Ammonia 92 H Total Protein 6.9 D Albumin 2.3 L 01/04/18 01/04/18 01/04/18 11:40 11:53 11:53 WBC RBC Hgb Hct MCV MCH MCHC RDW Plt Count MPV Prelim Diff (Auto) Neut % (Auto) Lymph % (Auto) [place] % (Auto) Eos % (Auto) Baso % (Auto) Neut # (Auto) Lymph # (Auto) [place] # (Auto) Eos # (Auto) Baso # (Auto) WBC Differential Diff Scan Differential Comment Platelet Estimate Platelet Morphology [place] Cells Keratocytes PT INR Sodium Potassium 2.4 L* Chloride Carbon Dioxide Anion Gap BUN Creatinine Estimated GFR POC Glucose 139 H Random Glucose Calcium Prot Corrected Calcium Phosphorus 2.8 Magnesium 1.0 L Total Bilirubin AST ALT Alkaline Phosphatase Ammonia Total Protein Albumin Microbiology 12/30/17 23:20 Blood - Peripheral Aerobic Blood Culture - Final No growth in 5 days 12/30/17 23:20 Blood - Peripheral Anaerobic Blood Culture - Final No growth in 5 days 12/30/17 23:25 Blood - Peripheral Aerobic Blood Culture - Final No growth in 5 days 12/30/17 23:25 Blood - Peripheral Anaerobic Blood Culture - Final No growth in 5 days <Juan Manuel Davidson - Last Filed: 01/04/18 14:38> Assessment and Plan - Plan Assessment: 1. Anemia with history of gastrointestinal bleeding in the recent past, status post endoscopy in August 2017 that did not show any evidence of varices. The patient at the current time is not exhibiting any signs of active bleeding. 2. Hepatitis C, never been treated in the past. Genotype 1 a, quant > 2 million in August 3. 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 The patient is not a candidate for liver transplantation with the history of active alcohol use. 4. History of recurrent ascites, status post paracentesis several months ago and she is currently with the ascites again. 5. History of alcohol abuse. 6. Electrolyte imbalance with hypokalemia. 7. Hypercoagulable state with increasing PT and PTT secondary to chronic liver disease. EGD --> The esophagus appeared normal. Portal hypertensive gastropathy was found in the entire examined stomach There was erythematous gastritis in the gastric antrum; biopsy was performed. Normal duodenal mucosa in the duodenal bulb, 2nd part duodenum, and 3rd part duodenum Paracentesis (01/02) 2200 cc quinteros fluid removed. (01/04) Pt denies nausea, vomiting, abdominal pain. Loose stools secondary to Lactulose with no evidence of GIB. Elevated discriminant function-64, will add steroids. Monitor BGL carefully. Again advised ETOH cessation. Plan: Add steroids Continue diuretics- Spironolactone and Lasix Xifaxan Lactulose Albumin replacement Protonix Not much to add from a GI standpoint Advised ETOH cessation Hepatitis C treatment outpatient Have pt follow up with GI after DC Pt has been seen and examined by myself and Dr. Davidson and this note is written on his behalf <Jesika Troncoso - Last Filed: 01/04/18 13:51> - Attending Attestation Seen and examined, nothing to add at this point. Continue current management plan. Please notify us if needed again. <Juan Manuel Davidson - Last Filed: 01/04/18 14:38>
[2018-01-04 14:14] LABS: Phosphorus 2.8 mg/dL (2.5-4.9)
[2018-01-04] MEDS: Magnesium Sulfate Inj 4 GM in Sodium Chlor 0.9% Inj 92 ML IV.SIG PRN (15:54)
--- NOTE | 2018-01-04 16:24 | P.PN ---
Subjective Interval history: Follow-up cirrhosis, ascites and multiple electrolyte abnormalities. Patient has no new complaints. Remains significantly deficient with her electrolytes requiring IV replacement Physical Exam Vital signs: Vital Signs 01/03/18 20:00 01/03/18 20:37 01/04/18 00:00 Temperature 98.5 F 98.7 F Pulse Rate 70 59 L Respiratory Rate 18 24 Blood Pressure 126/57 L 106/56 L Pulse Oximetry 100 100 100 01/04/18 04:00 01/04/18 08:00 01/04/18 12:00 Temperature 98.9 F 98.7 F 98.1 F Pulse Rate 59 L 59 L 50 L Respiratory Rate 25 H 18 21 Blood Pressure 119/64 129/67 116/58 L Pulse Oximetry 100 100 99 01/04/18 12:01 01/04/18 12:07 01/04/18 13:00 Temperature Pulse Rate 49 L 52 L Respiratory Rate 17 24 Blood Pressure 116/58 L Pulse Oximetry 99 100 99 01/04/18 13:01 01/04/18 14:00 01/04/18 15:00 Temperature Pulse Rate 53 L 74 56 L Respiratory Rate 25 H 36 H 26 H Blood Pressure 103/57 L 93/55 L 95/55 L Pulse Oximetry 100 100 100 01/04/18 16:00 Temperature 98.5 F Pulse Rate 59 L Respiratory Rate 21 Blood Pressure 103/56 L Pulse Oximetry 100 Intake & Output 01/03/18 01/04/18 01/04/18 18:59 06:59 18:59 Intake Total 1400 / 1400 50 / 50 50 / 50 Output Total 3300 / 3300 Balance -1900 / -1900 50 / 50 50 / 50 Weight 85.5 kg Intake: IV 1400 / 1400 50 / 50 50 / 50 Protonix Inj 80 MG In NS Inj 50 / 50 100 ML @ 10 mls/hr IV.CONT CONT [facility]TE Rx#:[id number] NS Inj 1,000 ML @ 84 mls/hr IV. 1000 / 1000 CONT .[id number] [facility]TE Rx#:[id number] Flexbumin 25% Inj 50 ML @ 60 100 / 100 50 / 50 50 / 50 mls/hr IV.SIG Q12H [facility]TE Rx#: [id number] Zosyn 3.375 GM Premix 50 ML @ 50 / 50 100 mls/hr IV.SIG Q6H [facility]TE Rx#: [id number] KCl 20 mEq Premix Inj 20 meq In 100 / 100 100 ml @ 50 mls/hr IV.SIG Q2H [facility]ARG[facility]TE Rx#:[id number] Output: Urine 1650 / 1650 Urine/Stool Mix 1650 / 1650 Other: # Voids 3 # Bowel Movements 1 Narrative: GEN: Ill-appearing female in bed HEENT: (+) scleral icterus, no nystagmus, PERRL CARDIO: Regular rate and rhythm RESP: Diminished bibasilar breath sounds ABD: Soft, moderately distended, (+) fluid wave, no tenderness, no guarding or rebound EXT: lower extremity edema improved SKIN: Significant jaundice NEURO: A&Ox3. No tremor - Urinary Catheter Management Indwelling Urethral Catheter Cath placed during this visit: yes, but has since been removed by the nurse Reason for continuing: Continue criteria not met Insertion date: 12/30/17 Insertion time: 23:06 Removal date: 01/01/18 Removal time: 09:56 Results - Labs CBC & Chem 7: 01/04/18 03:11 01/04/18 11:53 Laboratory Results - last 24 hr 01/03/18 01/04/18 01/04/18 17:39 00:37 03:11 WBC 8.3 RBC 3.15 L Hgb 8.7 L Hct 26.6 L MCV 84.5 MCH 27.5 MCHC 32.6 RDW 21.9 H Plt Count 88 L MPV 9.0 Prelim Diff (Auto) Slide review pending Neut % (Auto) 80.7 H Lymph % (Auto) 9.1 [place] % (Auto) 7.8 Eos % (Auto) 2.2 Baso % (Auto) 0.2 Neut # (Auto) 6.7 Lymph # (Auto) 0.8 L [place] # (Auto) 0.6 Eos # (Auto) 0.2 Baso # (Auto) 0.0 WBC Differential . Diff Scan Auto diff confirmed Differential Comment . Platelet Estimate Low L Platelet Morphology Normal [place] Cells 1+ H Keratocytes Occ H PT INR Sodium Potassium Chloride Carbon Dioxide Anion Gap BUN Creatinine Estimated GFR POC Glucose 86 123 H Random Glucose Calcium Prot Corrected Calcium Phosphorus Magnesium Total Bilirubin AST ALT Alkaline Phosphatase Ammonia Total Protein Albumin 01/04/18 01/04/18 01/04/18 03:11 03:11 03:11 WBC RBC Hgb Hct MCV MCH MCHC RDW Plt Count MPV Prelim Diff (Auto) Neut % (Auto) Lymph % (Auto) [place] % (Auto) Eos % (Auto) Baso % (Auto) Neut # (Auto) Lymph # (Auto) [place] # (Auto) Eos # (Auto) Baso # (Auto) WBC Differential Diff Scan Differential Comment Platelet Estimate Platelet Morphology [place] Cells Keratocytes PT 18.7 H INR 1.8 Sodium 136 Potassium 2.7 L* Chloride 104 Carbon Dioxide 22.5 Anion Gap 10 BUN 8 Creatinine 1.38 H Estimated GFR 41 L POC Glucose Random Glucose 151 H Calcium 7.1 L* Prot Corrected Calcium 7.2 L* Phosphorus 2.1 L Magnesium 1.3 L Total Bilirubin 31.8 H AST 46 H ALT 30 Alkaline Phosphatase 107 Ammonia 92 H Total Protein 6.9 D Albumin 2.3 L 01/04/18 01/04/18 01/04/18 11:40 11:53 11:53 WBC RBC Hgb Hct MCV MCH MCHC RDW Plt Count MPV Prelim Diff (Auto) Neut % (Auto) Lymph % (Auto) [place] % (Auto) Eos % (Auto) Baso % (Auto) Neut # (Auto) Lymph # (Auto) [place] # (Auto) Eos # (Auto) Baso # (Auto) WBC Differential Diff Scan Differential Comment Platelet Estimate Platelet Morphology [place] Cells Keratocytes PT INR Sodium Potassium 2.4 L* Chloride Carbon Dioxide Anion Gap BUN Creatinine Estimated GFR POC Glucose 139 H Random Glucose Calcium Prot Corrected Calcium Phosphorus 2.8 Magnesium 1.0 L Total Bilirubin AST ALT Alkaline Phosphatase Ammonia Total Protein Albumin Microbiology 12/30/17 23:20 Blood - Peripheral Aerobic Blood Culture - Final No growth in 5 days 12/30/17 23:20 Blood - Peripheral Anaerobic Blood Culture - Final No growth in 5 days 12/30/17 23:25 Blood - Peripheral Aerobic Blood Culture - Final No growth in 5 days 12/30/17 23:25 Blood - Peripheral Anaerobic Blood Culture - Final No growth in 5 days - Imaging ITS Impressions Abdomen/Pelvis CT 12/31/17 00:00 CONCLUSION: 1. Interval development of a moderate amount of ascites in the abdomen and pelvis. 2. Stable gallstones and nodular contour to the liver. Paracentesis Ultrasound 01/02/18 00:00 CONCLUSION: 1. Uncomplicated ultrasound-guided paracentesis. - Procedures EGD and paracentesis Assessment and Plan - Assessment (1) Liver failure Code(s): K72.90 - Hepatic failure, unspecified without coma Status: Acute - Plan 47-year-old female with HCV cirrhosis medication noncompliance with history of GI bleeds presents with likely recurrent GI bleed and significant hepatic encephalopathy. Plan by systems: Neurologic: Acute metabolic encephalopathy. Resolved Acute hepatic encephalopathy. Resolved Frequent neuro checks Avoid long-acting sedatives Increase lactulose to 4 times daily, rifaximin started on admission; Monitor for signs of alcohol withdrawal, unclear if patient is still abusing EtOH Thiamine supplementation, MVI Respiratory: Aggressive pulmonary toilet Wean oxygen by nasal cannula for goal SPO2 greater than 90% Head of bed elevated PRN nebs Cardiovascular: Keep on telemetry Renal: Acute kidney injury superimposed on chronic renal insufficiency, unknown stage Discontinue Pena start purewick -- Strict I/Os Daily BMP FEN/GI: HCV cirrhosis Acute liver dysfunction superimposed on end-stage liver disease GI bleeding Severe hypokalemia Severe hypocalcemia Severe acute protein calorie malnutrition Ascites status post paracentesis ICU electrolyte protocol Aggressive electrolyte replacement GI consult-- Patient is now a Child's C cirrhotic (had been B on discharge in August) with MELD score of 30 (had been a MELD of 11 on last discharge) Lactulose and rifaximin as noted above, recheck ammonia tomorrow Trend H&H, s/p 2 U PRBCs EGD shows gastropathy and gastritis status post biopsy. Follow-up pathology switch to p.o. Protonix. We will not place on octreotide drip as the patient has recent EGD and imaging suggestive that she does not have variceal disease Peritoneal fluid studies without evidence of infection discontinue antibiotic Status post IV albumin. Continue p.o. Lasix and Aldactone Heme/ID: Anemia secondary to acute blood loss. Improved Coagulopathy secondary to end-stage liver disease Urinary tract infection culture with lactobacillus Discontinue antibiotic s/p 2 units PRBC Trend H&H Daily INR Endocrine: -- SSI Prophylaxis: GI Prophylaxis Protonix DVT Prophylaxis -- SCDs Hold pharmacologic DVT prophylaxis in the setting of GI bleeding Lines: Peripheral IVs Discharge Planning: May transfer to [facility] VN and PT. Cane needed Possible discharge in the morning when electrolyte abnormalities corrected
[2018-01-04 16:37] LABS: Phosphorus 2.5 mg/dL (2.5-4.9)
[2018-01-04] MEDS: MethylPREDNISolone Sod Succinate Inj 125 MG/2 ML Vial IV.PUSH SCH (20:59)
[2018-01-05] MEDS: Albumin Human 25% Inj 50 ML IV.SIG SCH (01:22)
[2018-01-05] MEDS: Insulin NovoLIN Regular Correctional Sugar Inj SQ SCH ×2 (01:28→06:35)
[2018-01-05] MEDS: Furosemide 20 MG Tablet PO SCH (06:29)
[2018-01-05 06:39] LABS: Baso % (Auto) 0.1 % (0.0-2.0); Hematocrit 28.2 % (35.0-46.0); Hemoglobin 9.1 gm/dL (11.6-15.3); Lymph # (Auto) 0.2 th/mm3 (1.0-4.8); Lymph % (Auto) 3.2 % (9.0-44.0); Mean Corpuscular HGB Conc 32.4 % (32.0-36.0); Mean Corpuscular Hemoglobin 27.6 pg (27.0-34.0); Mean Platelet Volume 9.5 fL (7.0-11.0); Mono # (Auto) 0.1 th/mm3 (0.0-0.9); Mono % (Auto) 1.7 % (0.0-8.0); Neut # (Auto) 6.9 th/mm3 (1.8-7.7); Platelet Count 70 th/mm3 (150-450); Red Blood Count 3.32 mil/mm3 (4.00-5.30); Red Cell Distribution Width 22.5 % (11.6-17.2); White Blood Count 7.3 th/mm3 (4.0-11.0)
[2018-01-05 06:47] LABS: INR 1.8 Ratio; Prothrombin Time 18.7 sec (9.8-11.6)
[2018-01-05 07:23] LABS: Albumin 2.5 g/dL (3.4-5.0); Calcium 7.3 mg/dL (8.5-10.1); Carbon Dioxide 18.3 meq/L (21.0-32.0); Magnesium 1.9 mg/dL (1.5-2.5); Phosphorus 1.9 mg/dL (2.5-4.9); Total Protein 7.3 g/dL (6.4-8.2)
[2018-01-05] MEDS: Calcium Carbonate 500 MG Tablet PO SCH (08:29)
[2018-01-05] MEDS: MethylPREDNISolone Sod Succinate Inj 125 MG/2 ML Vial IV.PUSH SCH (08:29)
[2018-01-05] MEDS: Spironolactone 25 MG Tablet PO SCH (08:29)
[2018-01-05] MEDS: Multivit/Folic Acid/Minerals Chewable Tablets CHEW SCH (08:29)
[2018-01-05] MEDS: Mupirocin 2% Nasal Oint Topical Syringe EACH NARE SCH (08:30)
--- NOTE | 2018-01-05 09:55 | P.DS ---
Date of admission: 12/30/17 23:42 Primary care physician: UNKNOWN Brief History from admission: This is a 47-year-old female with a history of hepatitis C cirrhosis and significant medication noncompliance who has been recently admitted for GI bleeding from gastric ulcers. She represents today with fatigue and altered mental status. She is quite somnolent on exam and no additional information is available from patient. She does arouse and protect her airway, but can only follow simple yes and no commands. She is quite starkly jaundiced. In the emergency department she has a hemoglobin of 5 which is below her baseline around 10. She was emergently given 2 units packed red blood cells. She does have a history of GI bleeds. Her ammonia is elevated greater than 100. She has acute kidney injury and evidence of urinary tract infection. No additional aspiration is available from the patient due to her altered mental status. Review systems is unobtainable. Patient update on day of discharge: Tolerating diet well. No vomiting blood. No abdominal pain. Wants to go home. DS: Diagnosis - Discharge Diagnosis (1) Acute GI bleeding Status: Resolved Diagnosis: Principal (2) Anemia Status: Chronic Diagnosis: Secondary (3) Liver failure Status: Chronic Diagnosis: Secondary (4) Renal failure Status: Resolved Diagnosis: Secondary (5) Cirrhosis Status: Chronic Diagnosis: Secondary DS: Medications - Discharge Medications Prescriptions: calcium carbonate [Oyster Shell Calcium 500] 500 mg PO TID #90 tab furosemide 20 mg PO DAILY@07 #30 tab rifaximin [Xifaxan] 200 mg PO Q8HR #90 tab spironolactone [Aldactone] 25 mg PO DAILY #30 tab DS: Summary Hospital Course: These are the medical issues addressed during this hospitalization: 47-year-old female with HCV cirrhosis medication noncompliance with history of GI bleeds presents with likely recurrent GI bleed and significant hepatic encephalopathy. Acute metabolic encephalopathy. Resolved Acute hepatic encephalopathy. Resolved Frequent neuro checks has been stable Avoid long-acting sedatives Continue lactulose, rifaximin started on admission; Monitor for signs of alcohol withdrawal, unclear if patient is still abusing EtOH Thiamine supplementation, MVI Acute kidney injury superimposed on chronic renal insufficiency, unknown stage Avoid nephrotoxins creatinine improving. HCV cirrhosis Acute liver dysfunction superimposed on end-stage liver disease GI bleeding Severe hypokalemia Severe hypocalcemia Severe acute protein calorie malnutrition Ascites status post paracentesis ICU electrolyte protocol replacement. Aggressive electrolyte replacement GI consult appreciated with Dr. Davidson-- Patient is now a Child's C cirrhotic ( had been B on discharge in August) with MELD score of 30 (had been a MELD of 11 on last discharge) Lactulose and rifaximin as noted above, recheck ammonia tomorrow Trend H&H, s/p 2 U PRBCs during the hospitalization EGD shows gastropathy and gastritis status post biopsy. Follow-up pathology switch to p.o. Protonix. Peritoneal fluid studies without evidence of infection discontinue antibiotic Status post IV albumin. Continue p.o. Lasix and Aldactone Anemia secondary to acute blood loss. Improved Coagulopathy secondary to end-stage liver disease Urinary tract infection culture with lactobacillus Discontinue antibiotic s/p 2 units PRBC Prophylaxis: GI Prophylaxis Protonix DVT Prophylaxis -- SCDs Hold pharmacologic DVT prophylaxis in the setting of GI bleeding Patient has gained maximum benefit from hospitalization is ready to be discharged to home today. - Time Spent with Patient Total time spent providing and/or coordinating discharge services: Less than 30 minutes - Quality: VTE Deep Vein Thrombosis/Pulmonary Embolism Present on Admission: No Exam Vital signs: Vital Signs 01/04/18 12:00 01/04/18 12:01 01/04/18 12:07 Temperature 98.1 F Pulse Rate 50 L 49 L Respiratory Rate 21 17 Blood Pressure 116/58 L 116/58 L Pulse Oximetry 99 99 100 01/04/18 13:00 01/04/18 13:01 01/04/18 14:00 Temperature Pulse Rate 52 L 53 L 74 Respiratory Rate 24 25 H 36 H Blood Pressure 103/57 L 93/55 L Pulse Oximetry 99 100 100 01/04/18 15:00 01/04/18 16:00 01/04/18 20:00 Temperature 98.5 F 98.0 F Pulse Rate 56 L 59 L 69 Respiratory Rate 26 H 21 20 Blood Pressure 95/55 L 103/56 L 93/53 L Pulse Oximetry 100 100 100 01/05/18 00:00 01/05/18 08:00 Temperature 97.8 F 97.1 F L Pulse Rate 57 L 50 L Respiratory Rate 18 17 Blood Pressure 110/64 111/67 Pulse Oximetry 99 98 Intake & Output 01/04/18 01/05/18 01/05/18 18:59 06:59 18:59 Intake Total 900 / 900 940 / 940 Output Total 1999 Balance -1100 / -1100 940 / 940 Intake: IV 150 / 150 460 / 460 Flexbumin 25% Inj 50 ML @ 60 50 / 50 50 / 50 mls/hr IV.SIG Q12H MARGARETTE Rx#: [id number] Magnesium Sulfate Inj 4 GM In 100 / 100 NS Inj 92 ML @ 50 mls/hr IV.SIG UNSCH PRN Rx#:[id number] KCl 20 mEq Premix Inj 20 meq In 300 / 300 100 ml @ 50 mls/hr IV.SIG Q2H PRN Rx#:[id number] Oral 750 / 750 480 / 480 Output: Urine 1999 Other: # Voids 3 Date of Last Bowel Movement 01/04/18 # Bowel Movements 4 Results Procedures completed during hospitalization: 01/02 EGD and paracentesis Completed studies during hospitalization: Pending at discharge 01/02/18 07:30 Surgical [PTH] Routine Labs on day of discharge: Labs from last 24 hours 01/05/18 01/05/18 01/05/18 06:31 06:17 06:17 WBC RBC Hgb Hct MCV MCH MCHC RDW Plt Count MPV Prelim Diff (Auto) Neut % (Auto) Lymph % (Auto) [place] % (Auto) Eos % (Auto) Baso % (Auto) Neut # (Auto) Lymph # (Auto) [place] # (Auto) Eos # (Auto) Baso # (Auto) WBC Differential Diff Scan Differential Comment Platelet Estimate Platelet Morphology PT INR Sodium 131 L Potassium 4.0 D Chloride 102 Carbon Dioxide 18.3 L Anion Gap 11 BUN 8 Creatinine 1.42 H Estimated GFR 39 L POC Glucose 209 H Random Glucose 185 H Calcium 7.3 L* Prot Corrected Calcium 7.3 L* Phosphorus 1.9 L Magnesium 1.9 D Total Bilirubin 31.1 H AST 71 H ALT 31 Alkaline Phosphatase 127 H Ammonia 75 H Total Protein 7.3 Albumin 2.5 L 01/05/18 01/05/18 01/05/18 06:17 06:17 01:22 WBC 7.3 RBC 3.32 L Hgb 9.1 L Hct 28.2 L MCV 85.0 MCH 27.6 MCHC 32.4 RDW 22.5 H Plt Count 70 L MPV 9.5 Prelim Diff (Auto) Slide review pending Neut % (Auto) 95.0 H Lymph % (Auto) 3.2 L [place] % (Auto) 1.7 Eos % (Auto) 0.0 Baso % (Auto) 0.1 Neut # (Auto) 6.9 Lymph # (Auto) 0.2 L [place] # (Auto) 0.1 Eos # (Auto) 0.0 Baso # (Auto) 0.0 WBC Differential . Diff Scan Auto diff confirmed Differential Comment . Platelet Estimate Low L Platelet Morphology Enlarged H PT 18.7 H INR 1.8 Sodium Potassium Chloride Carbon Dioxide Anion Gap BUN Creatinine Estimated GFR POC Glucose 197 H Random Glucose Calcium Prot Corrected Calcium Phosphorus Magnesium Total Bilirubin AST ALT Alkaline Phosphatase Ammonia Total Protein Albumin 01/04/18 01/04/18 01/04/18 17:48 15:05 11:53 WBC RBC Hgb Hct MCV MCH MCHC RDW Plt Count MPV Prelim Diff (Auto) Neut % (Auto) Lymph % (Auto) [place] % (Auto) Eos % (Auto) Baso % (Auto) Neut # (Auto) Lymph # (Auto) [place] # (Auto) Eos # (Auto) Baso # (Auto) WBC Differential Diff Scan Differential Comment Platelet Estimate Platelet Morphology PT INR Sodium Potassium Chloride Carbon Dioxide Anion Gap BUN Creatinine Estimated GFR POC Glucose 139 H Random Glucose Calcium Prot Corrected Calcium Phosphorus 2.5 2.8 Magnesium 1.0 L 1.0 L Total Bilirubin AST ALT Alkaline Phosphatase Ammonia Total Protein Albumin 01/04/18 01/04/18 11:53 11:40 WBC RBC Hgb Hct MCV MCH MCHC RDW Plt Count MPV Prelim Diff (Auto) Neut % (Auto) Lymph % (Auto) [place] % (Auto) Eos % (Auto) Baso % (Auto) Neut # (Auto) Lymph # (Auto) [place] # (Auto) Eos # (Auto) Baso # (Auto) WBC Differential Diff Scan Differential Comment Platelet Estimate Platelet Morphology PT INR Sodium Potassium 2.4 L* Chloride Carbon Dioxide Anion Gap BUN Creatinine Estimated GFR POC Glucose 139 H Random Glucose Calcium Prot Corrected Calcium Phosphorus Magnesium Total Bilirubin AST ALT Alkaline Phosphatase Ammonia Total Protein Albumin - Impressions ITS Impressions Abdomen/Pelvis CT 12/31/17 00:00 CONCLUSION: 1. Interval development of a moderate amount of ascites in the abdomen and pelvis. 2. Stable gallstones and nodular contour to the liver. Paracentesis Ultrasound 01/02/18 00:00 CONCLUSION: 1. Uncomplicated ultrasound-guided paracentesis. Discharge Plan - Discharge Disposition Patient Disposition: 01 Discharge Home - Discharge Condition Condition: Fair - Discharge Order Discharge Orders: Discharge Order (Routine); Ordered 01/05/18 Ordered By: Lory Lorenzana - Discharge Details Anticipated Discharge Date: 01/05/18 - Physicians Team Primary Care Provider: UNKNOWN, Attending Provider: Lory Lorenzana Other Providers: Juan Manuel Davidson MD
--- NOTE | 2018-01-05 10:03 | P.DCO ---
- Diagnosis (2) Liver failure - Home Health Nursing Order: Signs/symptoms of disease process, Medication education-adverse effect, Nursing assessment with vital signs - Certification I have seen patient Debra Murray on 01/05/18. My clinical findings support the need for the requested home health care services because: Medication compliance is questionable, Need for psychosocial assistance I certify that my clinical findings support that this patient is homebound because: Need for psychosocial assistance (2) Liver failure Qualifiers: Liver failure chronicity: chronic
== END 2018-01-05 11:52 | disposition home health service (06) ==
LOC: NEPE 21:45 → NEDA 23:42 → HIMC 12-31 07:35 → N07 01-04 22:48
PROVIDERS: ADMIT Family Medicine; ATTEND Family Medicine
PROC: PANENDO (2018-01-02 09:50)

== ENCOUNTER 2018-01-27 16:11 | Inpatient (IN) ==
--- NOTE | 2018-01-27 16:22 | ED ---
HPI General Chief complaint: GI Bleed Stated complaint: GI Bleed Time Seen by Provider: 01/27/18 16:14 Source: EMS and old records reviewed Mode of arrival: EMS Limitations: altered mental status History of Present Illness HPI Narrative: 47-year-old female that was brought in by EMS unresponsive when she was found history was obtained by EMS and previous records. The patient has per critical care note on 12/31/17 has Hep- C with liver cirrhosis and was admitted last August for upper GI bleed from gastric ulcers presented with altered mental status today again. She was somnolent on arrival appearing yellow. Paramedics noted that they have to [facility] several weeks ago and it appears that it was the patient's and since then appears that she has not been taking care of herself. However there is a note from the beginning of December with the exact same presentation with the patient. Yellow confused with bloody stools. Paramedics report no hematemesis. Patient is responding to painful stimuli and is able to protect her airway. Related Data Previous Rx's Medication Instructions Recorded calcium carbonate [Oyster Shell 500 mg PO TID #90 tab 01/05/18 Calcium 500] furosemide 20 mg PO DAILY@07 #30 tab 01/05/18 lactulose 30 ml PO Q6H 30 Days #3600 ml 01/05/18 pantoprazole 40 mg PO DAILY #30 tab 01/05/18 prednisone 20 mg PO DAILY #10 tab 01/05/18 rifaximin [Xifaxan] 200 mg PO Q8HR #90 tab 01/05/18 spironolactone [Aldactone] 25 mg PO DAILY #30 tab 01/05/18 Allergies Allergy/AdvReac Type Severity Reaction Status Date / Time No Known Allergies Allergy Verified 01/27/18 17:55 Review of Systems ROS Unobtainable ROS Unobtainable: unobtainable due to mental status PMFSH Medical History Medical History Liver failure (Chronic) Renal failure (Resolved) Post hysterectomy menopause (Acute) Hepatitis (Acute) Cirrhosis (Chronic) Social History Social History Substance History: Unable to Obtain Second Hand Smoke Exposure: Yes Smoking Status: Unknown if ever smoked Tobacco Type: Cigarettes How Often Do You Have a Drink Containing Alcohol: Unable to Obtain Recent Travel in [facility] within the Last 8 Weeks: No Recent Out of Country Travel within the Last 8 Weeks: No Immunization History Tetanus Immunization: Unable to Assess Exam Narrative Exam Narrative: GENERAL: Obtunded but responds to painful stimuli and sternal rub. SKIN: Focused skin assessment warm/dry. HEAD: Atraumatic. Normocephalic. EYES: Pupils equal and round. No scleral icterus. No injection or drainage. ENT: No nasal bleeding or discharge. Mucous membranes pink and moist. NECK: Trachea midline. No JVD. CARDIOVASCULAR: Regular rate and rhythm. No murmur appreciated. RESPIRATORY: No accessory muscle use. Clear to auscultation. Breath sounds equal bilaterally. GASTROINTESTINAL: Abdomen soft, non-tender, nondistended. Hepatic and splenic margins not palpable. MUSCULOSKELETAL: No obvious deformities. No clubbing. No cyanosis. No edema. NEUROLOGICAL: Awake and alert. No obvious cranial nerve deficits. Motor grossly within normal limits. Normal speech. PSYCHIATRIC: Appropriate mood and affect; insight and judgment normal. Course Hospital Course: Patient with leukocytosis of 20.9 for which she was given Zosyn and vancomycin for broad spectrum coverage of an unknown origin infection. She also has an anemia of 7.6 for which she received 2 units of blood. For her lower GI bleed she was started on octreotide and Protonix there was no hematemesis. Patient had a recent EGD that revealed gastritis. Potassium of 2.7 started with replacement in the ED. Elevated creatinine 2.11 from 1.4 to a month ago. Discussed with admitting physician. Fluids given. Hypocalcemia of 7.5 markedly elevated ammonia at 137 for which she relieved a lactulose enema. The patient has a head CT pending at this time but her encephalopathy is likely secondary to liver cirrhosis and infection. Reevaluation(s) Reevaluation #1: Hemodynamically stable stable vitals. Time: 16:54 Reevaluation #2: Sleeping comfortably no distress stable vitals Time: 18:46 Initial Documented Vital Signs Pulse Rate 126 H 01/27/18 16:12 Respiratory Rate 18 01/27/18 16:12 Blood Pressure 116/63 01/27/18 16:12 Pulse Oximetry 100 01/27/18 16:12 Last Documented Vital Signs Temperature 97.6 F 01/27/18 18:40 Pulse Rate 118 H 01/27/18 18:40 Respiratory Rate 20 01/27/18 18:40 Blood Pressure 98/52 L 01/27/18 18:40 Pulse Oximetry 99 01/27/18 18:40 Critical Care Time Critical Care Time: Yes Total Critical Care Time: 45 Attestation: Aggregate critical care time was 45 minutes. Time to perform other separately billable procedures was not included in the critical care time. My time did not include minutes spent treating any other patients simultaneously or on activities that did not directly contribute to the patient's treatment. The services I provided to this patient were to treat and/or prevent clinically significant deterioration that could result in: I provided critical care services requiring my management, as noted below: Chart data review, documentation time, medication orders and management, vital sign assessments/reviewing monitor data, ordering and reviewing lab tests, ordering and interpreting/reviewing x-rays and diagnostic studies, care of the patient and discussion of the patient with the admitting physicians. Medical Decision Making MDM Narrative Medical decision making narrative: Patient with multiple problems secondary to liver cirrhosis deconditioning and not taking care of herself. Her ammonia level was markedly elevated which is more than likely causing her mental status changes. Potassium was low started replacement she is in renal failure there is possible infection with a market leukocytosis for which she was covered with broad-spectrum antibiotics. admitted top the ICU Anemia due to GI bleed cover with Protonix and octreotide started on blood transfusion in the ED. Medical Screen Exam Complete: Yes Emergency Medical Condition: Yes Medical Records Medical records reviewed: Yes I reviewed the patient's medical records. Lab Data Lab results reviewed: Yes I reviewed the patient's lab results. Result diagrams: 01/27/18 16:10 01/27/18 16:30 Lab Results 01/27/18 01/27/18 01/27/18 Range/Units 16:10 16:30 16:30 WBC 20.9 H (4.0-11.0) th/mm3 RBC 2.38 L (4.00-5.30) mil/mm3 Hgb 7.6 L (11.6-15.3) gm/dL Hct 22.7 L (35.0-46.0) % MCV 95.1 (80.0-100.0) fL MCH 31.7 (27.0-34.0) pg MCHC 33.3 (32.0-36.0) % RDW 24.9 H (11.6-17.2) % Plt Count 162 D (150-450) th/mm3 MPV 9.0 (7.0-11.0) fL Neut % (Auto) 87.7 H (16.0-70.0) % Lymph % (Auto) 5.0 L (9.0-44.0) % [place] % (Auto) 7.0 (0.0-8.0) % Eos % (Auto) 0.2 (0.0-4.0) % Baso % (Auto) 0.1 (0.0-2.0) % Neut # (Auto) 18.3 H (1.8-7.7) th/mm3 Lymph # (Auto) 1.1 (1.0-4.8) th/mm3 [place] # (Auto) 1.5 H (0.0-0.9) th/mm3 Eos # (Auto) 0.0 (0.0-0.4) th/mm3 Baso # (Auto) 0.0 (0.0-0.2) th/mm3 WBC Differential . Differential Comment Auto diff final PT 23.5 H (9.8-11.6) sec INR 2.3 Ratio APTT 36.9 H (24.3-30.1) sec Sodium 140 (136-145) meq/L Potassium 2.7 L* (3.5-5.1) meq/L Chloride 100 (98-107) meq/L Carbon Dioxide 24.7 (21.0-32.0) meq/L Anion Gap 15 (5-15) meq/L BUN 27 H (7-18) mg/dL Creatinine 2.11 H (0.50-1.00) mg/dL Estimated GFR 25 L (>89) mL/min POC Glucose (68-110) mg/dl Random Glucose 88 (74-106) mg/dL Calcium 7.5 L (8.5-10.1) mg/dL Total Bilirubin 24.8 H (0.2-1.0) mg/dL AST 82 H (15-37) U/L ALT 33 (10-53) U/L Alkaline Phosphatase 149 H (45-117) U/L Ammonia (11-32) mcmol/L Total Protein 5.7 L (6.4-8.2) g/dL Albumin 1.8 L (3.4-5.0) g/dL Lipase 104 (73-393) U/L Serum Alcohol Less than 3 (0-5) mg/dL Blood Type Antibody Screen MTS Gel Crossmatch Bld Prod Order Comment 01/27/18 01/27/18 01/27/18 Range/Units 16:30 16:30 16:30 WBC (4.0-11.0) th/mm3 RBC (4.00-5.30) mil/mm3 Hgb (11.6-15.3) gm/dL Hct (35.0-46.0) % MCV (80.0-100.0) fL MCH (27.0-34.0) pg MCHC (32.0-36.0) % RDW (11.6-17.2) % Plt Count (150-450) th/mm3 MPV (7.0-11.0) fL Neut % (Auto) (16.0-70.0) % Lymph % (Auto) (9.0-44.0) % [place] % (Auto) (0.0-8.0) % Eos % (Auto) (0.0-4.0) % Baso % (Auto) (0.0-2.0) % Neut # (Auto) (1.8-7.7) th/mm3 Lymph # (Auto) (1.0-4.8) th/mm3 [place] # (Auto) (0.0-0.9) th/mm3 Eos # (Auto) (0.0-0.4) th/mm3 Baso # (Auto) (0.0-0.2) th/mm3 WBC Differential Differential Comment PT (9.8-11.6) sec INR Ratio APTT (24.3-30.1) sec Sodium (136-145) meq/L Potassium (3.5-5.1) meq/L Chloride (98-107) meq/L Carbon Dioxide (21.0-32.0) meq/L Anion Gap (5-15) meq/L BUN (7-18) mg/dL Creatinine (0.50-1.00) mg/dL Estimated GFR (>89) mL/min POC Glucose (68-110) mg/dl Random Glucose (74-106) mg/dL Calcium (8.5-10.1) mg/dL Total Bilirubin (0.2-1.0) mg/dL AST (15-37) U/L ALT (10-53) U/L Alkaline Phosphatase (45-117) U/L Ammonia 137 H (11-32) mcmol/L Total Protein (6.4-8.2) g/dL Albumin (3.4-5.0) g/dL Lipase (73-393) U/L Serum Alcohol (0-5) mg/dL Blood Type O Negative Antibody Screen Negative MTS Gel Crossmatch See Detail Bld Prod Order Comment 01/27/18 Range/Units 17:49 WBC (4.0-11.0) th/mm3 RBC (4.00-5.30) mil/mm3 Hgb (11.6-15.3) gm/dL Hct (35.0-46.0) % MCV (80.0-100.0) fL MCH (27.0-34.0) pg MCHC (32.0-36.0) % RDW (11.6-17.2) % Plt Count (150-450) th/mm3 MPV (7.0-11.0) fL Neut % (Auto) (16.0-70.0) % Lymph % (Auto) (9.0-44.0) % [place] % (Auto) (0.0-8.0) % Eos % (Auto) (0.0-4.0) % Baso % (Auto) (0.0-2.0) % Neut # (Auto) (1.8-7.7) th/mm3 Lymph # (Auto) (1.0-4.8) th/mm3 [place] # (Auto) (0.0-0.9) th/mm3 Eos # (Auto) (0.0-0.4) th/mm3 Baso # (Auto) (0.0-0.2) th/mm3 WBC Differential Differential Comment PT (9.8-11.6) sec INR Ratio APTT (24.3-30.1) sec Sodium (136-145) meq/L Potassium (3.5-5.1) meq/L Chloride (98-107) meq/L Carbon Dioxide (21.0-32.0) meq/L Anion Gap (5-15) meq/L BUN (7-18) mg/dL Creatinine (0.50-1.00) mg/dL Estimated GFR (>89) mL/min POC Glucose 104 (68-110) mg/dl Random Glucose (74-106) mg/dL Calcium (8.5-10.1) mg/dL Total Bilirubin (0.2-1.0) mg/dL AST (15-37) U/L ALT (10-53) U/L Alkaline Phosphatase (45-117) U/L Ammonia (11-32) mcmol/L Total Protein (6.4-8.2) g/dL Albumin (3.4-5.0) g/dL Lipase (73-393) U/L Serum Alcohol (0-5) mg/dL Blood Type Antibody Screen MTS Gel Crossmatch Bld Prod Order Comment Imaging Data Radiologist's impression: Abdomen Ultrasound 01/27/18 16:16 CONCLUSION: Moderate ascites. Chest X-Ray 01/27/18 16:16 CONCLUSION: Minimal focal patchiness is noted within the left lung base consistent with possible developing infiltrate. Clinical correlation is recommended. ECG Data Attestation: I personally reviewed and interpreted this ECG as follows: Discharge Plan Discharge Disposition Patient Disposition: 30 Still Patient Discharge Condition Condition: Critical Discharge Details Diagnosis: Encephalopathy, Anemia, Altered mental status, Toxic metabolic encephalopathy, Hypokalemia Physicians Team ED Provider: Julien Simmons Primary Care Provider: UNKNOWN, Rxs /Orders / Referrals /Forms Prescriptions: No Action spironolactone [Aldactone] 25 mg Tablet 25 mg PO DAILY Qty: 30 RF: 0 calcium carbonate [Oyster Shell Calcium 500] 500 mg calcium (1,250 mg) Tablet 500 mg PO TID Qty: 90 RF: 0 furosemide 20 mg Tablet 20 mg PO DAILY@07 Qty: 30 RF: 0 rifaximin [Xifaxan] 200 mg Tablet 200 mg PO Q8HR Qty: 90 RF: 0 pantoprazole 40 mg Tablet,Delayed Release (Dr/Ec) 40 mg PO DAILY Qty: 30 RF: 0 lactulose 20 gram/30 mL Solution 30 ml PO Q6H 30 Days Qty: 3600 RF: 0 prednisone 20 mg Tablet 20 mg PO DAILY Qty: 10 RF: 0 Status ED Status: With Doctor
[2018-01-27] MEDS ORDERED: Sod Chloride 0.9% Inj 1,000 ML IV.SIG ONE (16:42)
--- NOTE | 2018-01-27 16:45 | US ---
EXAM DATE: 01/27/2018 4:16 PM EDT AGE/SEX: 47 years / Female INDICATIONS: Distended abdomen. CLINICAL DATA: This is the patient's subsequent encounter. Patient reports that signs and symptoms h ave been present for 1 day and indicates a pain score of Nonresponsive. MEDICAL/SURGICAL HISTORY: Cirrhosis. Hepatitis. Renal failure.Liver failure. None. COMPARISON: [facility], US PARACENTESIS ABD W/IMAGE, 01/01/2018. . FINDINGS: Moderate quantity of ascites visualized, most conspicuously collecting in the right upper quadrant CONCLUSION: Moderate ascites. Electronically signed by: Dc Thrasher MD 01/27/2018 4:44 PM EDT
[2018-01-27 16:56] LABS: Baso % (Auto) 0.1 % (0.0-2.0); Eos % (Auto) 0.2 % (0.0-4.0); Hematocrit 22.7 % (35.0-46.0); Hemoglobin 7.6 gm/dL (11.6-15.3); Lymph # (Auto) 1.1 th/mm3 (1.0-4.8); Mean Corpuscular HGB Conc 33.3 % (32.0-36.0); Mean Corpuscular Hemoglobin 31.7 pg (27.0-34.0); Mean Corpuscular Volume 95.1 fL (80.0-100.0); Mono # (Auto) 1.5 th/mm3 (0.0-0.9); Neut # (Auto) 18.3 th/mm3 (1.8-7.7); Neut % (Auto) 87.7 % (16.0-70.0); Platelet Count 162 th/mm3 (150-450); Red Blood Count 2.38 mil/mm3 (4.00-5.30); Red Cell Distribution Width 24.9 % (11.6-17.2); White Blood Count 20.9 th/mm3 (4.0-11.0)
[2018-01-27] MEDS: Pantoprazole Inj 80 MG in Sodium Chlor 0.9% Inj 100 ML IV.CONT SCH (17:04)
[2018-01-27] MEDS ORDERED: Water Sterile for Irr Bot 700 ML, Lactulose Liq 300 ML RECTAL ONE ×2 (17:13)
[2018-01-27] MEDS ORDERED: Piperacil/Tazo 3.375 GM Premix 50 ML IV.SIG ONE (17:14)
--- NOTE | 2018-01-27 17:20 | XR ---
EXAM DATE: 01/27/2018 4:16 PM EDT AGE/SEX: 47 years / Female INDICATIONS: Shortness of breath. CLINICAL DATA: This is the patient's initial encounter. Patient reports that signs and symptoms have been present for 1 day and indicates a pain score of 0/10. MEDICAL/SURGICAL HISTORY: . Cirrhosis. Hepatitis. Liver failure. Hysterectomy . COMPARISON: [facility] – [place], CHEST SINGLE AP, 09/14/2017. . FINDINGS: Minimal focal patchiness is noted within the left lung base consistent with possible developing infil trate. Clinical correlation is recommended. The right lung is clear. The heart is normal. CONCLUSION: Minimal focal patchiness is noted within the left lung base consistent with possible developing infil trate. Clinical correlation is recommended. Electronically signed by: Danial Navarro MD 01/27/2018 5:19 PM EDT
[2018-01-27 17:30] LABS: Activated Partial Thrombo Time 36.9 sec (24.3-30.1); INR 2.3 Ratio; Prothrombin Time 23.5 sec (9.8-11.6)
[2018-01-27] MEDS ORDERED: Sodium Chlor 0.9% Inj 250 ML IV.SIG SCH ×2 (18:00→21:00)
[2018-01-27] MEDS ORDERED: Vancomycin Inj 1 GM/200 ML PIGGYBACK IV.SIG SCH (18:00)
[2018-01-27 18:07] LABS: Alanine Aminotransferase 33 U/L (10-53); Albumin 1.8 g/dL (3.4-5.0); Alkaline Phosphatase 149 U/L (45-117); Anion Gap 15 meq/L (5-15); Aspartate Aminotransferase 82 U/L (15-37); Blood Urea Nitrogen 27 mg/dL (7-18); Calcium 7.5 mg/dL (8.5-10.1); Carbon Dioxide 24.7 meq/L (21.0-32.0); Chloride 100 meq/L (98-107); Glomerular Filtration Rate 25 mL/min (>89); Glucose,Random 88 mg/dL (74-106); Lipase 104 U/L (73-393); Sodium 140 meq/L (136-145); Total Protein 5.7 g/dL (6.4-8.2)
[2018-01-27 18:09] LABS: Potassium 2.7 meq/L (3.5-5.1)
[2018-01-27] MEDS ORDERED: Potassium Chlor 20 mEq Premix 20 MEQ/100 ML PIGGYBACK IV.SIG ONE ×2 (18:14→22:38)
[2018-01-27] MEDS ORDERED: Vancomycin Inj 1,000 MG in Sodium Chlor 0.9% Inj 250 ML IV.SIG ONE (18:15)
[2018-01-27] MEDS ORDERED: Phytonadione Inj 10 MG in Sodium Chlor 0.9% Inj 50 ML IV.SIG ONE (18:47)
[2018-01-27 19:18] LABS: ABG PCO2 33 mmHg (38-42); ABG PO2 148 mmHg (61-120)
--- NOTE | 2018-01-27 20:36 | P.HPCC ---
History of Present Illness Service: Critical care medicine Primary Care Physician: UNKNOWN Chief Complaint: Altered mental status History of Present Illness: History was obtained through discussion with ED physician and review of EMR. Patient is not able to provide history. I attempted to contact her son, Spike العراقي, and there was no answer. I also attempted to contact her ex-, Saeid Murray, and there was no answer. According to [facility] her ex- was recently transported for cardiac arrest. It is unknown whether he . 47-year-old female with past medical history of alcohol dependence, cirrhosis, chronic hepatitis C, gastritis and portal hypertensive gastropathy, prior esophageal varices band ligation x2 in 2016, cocaine abuse. She presented to [facility] emergency department via [facility] with altered mental status and jaundice. She had a melena BM. No vomiting. Her Hgb is 7.6. Prior was 9.1 on 01/05. Her INR is 2.3. She is receiving 2 units PRBC per ED physician and has been given octreotide 100 mcg IV and started on protonix drip. I am ordering vitamin K 10 mg and 2 units FFP. Temp is 96.9, sinus tach in 120s, BP 114/62. She has leukocytosis 20k and has been treated empirically for sepsis with zosyn and vancomycin. She has moderate ascites. She is at risk for SBP, will do diagnostic paracentesis after coagulopathy addressed. She also is lethargic with ammonia level 137. She has received lactulose enema. CT brain is pending. Creatinine is 2.11 with most recent range being about 1.1- 1.42. Last EGD 01/02/18 showed portal hypertensive gastropathy and erythematous gastritis. There were no varices at that time. In she had gastric ulcers that did not require intervention. She has had esophageal varices with banding back in 2016. - Diagnosis (1) Hepatic encephalopathy (2) Portal hypertensive gastropathy (3) Alcohol dependence (4) End stage liver disease (5) Cirrhosis (6) Acute GI bleeding (7) Sepsis (8) Coagulopathy (9) Thrombocytopenia (10) SUKHJINDER (acute kidney injury) (11) Acute blood loss anemia (12) Ascites (13) Polysubstance abuse (14) Tobacco abuse (15) Protein-energy malnutrition (16) Hypokalemia Inpatient Certification: I certify that the inpatient services were ordered in accordance with Medicare regulations governing the order. This includes certification that hospital inpatient services are reasonable and necessary and in the case of services not specified as inpatient-only under 42 CFR 419.22(n), that they are appropriately provided as inpatient services in accordance to with the 2-midnight benchmark under 43 CFR 412.3(e) Estimated Total Length of Stay (Days): 7 Plans for Post Hospital Care: SNF Review of Systems unobtainable due to mental condition PMFSH - History History Provided By: Medical Record - Medical History Medical History: Medical History (Last Updated 01/28/18 @ 04:14 by Erin Vick MD) Portal hypertensive gastropathy (Acute) Hepatitis C, chronic (Acute) Liver failure (Chronic) Post hysterectomy menopause (Acute) Cirrhosis (Chronic) EtOH dependence History of hysterectomy Hepatitis Renal failure - Surgical History Surgical History: Surgical History (Last Updated 01/28/18 @ 04:25 by Erin Vick MD) History of esophagogastroduodenoscopy (EGD) History of open reduction and internal fixation (ORIF) procedure Hx of colonoscopy - Family History Family History: Family History (Last Updated 01/28/18 @ 04:24 by Erin Vick MD) Mother Pancreatic cancer Liver cancer Esophageal cancer Father EtOH dependence Cirrhosis - Social History I have reviewed the patient's Social History: Yes - Tobacco History Second Hand Smoke Exposure: Yes Smoking Status: Smoker, status unknown Tobacco Type: Cigarettes - Alcohol History How Often Do You Have a Drink Containing Alcohol: Unable to Obtain - Substance Use History Substance History: Unable to Obtain - Travel History Recent Travel in the [place] Within the Last 8 Weeks: No Recent Travel Out of the Country Within the Last 8 Weeks: No - Immunization History Tetanus Immunization: Unable to Assess Medications and Allergies Active Medications: Active Medications Albuterol (Albuterol Neb (Baldo)) 2.5 mg NEB Q2HR NEB PRN PRN Reason: SHORTNESS OF BREATH/WHEEZING Chlorhexidine Gluconate (Chlorhexidine 2% Cloth) 3 pack TOPICAL DAILY@0400 BALDO Stop: 02/02/18 03:59 Chlorhexidine Gluconate (Chlorhexidine 2% Cloth) 3 pack TOPICAL DAILY@0400 PRN PRN Reason: Extra cloth needed Stop: 02/02/18 03:59 Pantoprazole Sodium 80 mg/ (Sodium Chloride) 100 mls @ 10 mls/hr IV.CONT CONT BALDO Last Admin: 01/27/18 17:04 Dose: 10 mls/hr Sodium Chloride (Ns Inj) 250 mls @ 15 mls/hr IV.SIG ONCE BALDO Stop: 01/28/18 10:39 Last Admin: 01/27/18 18:31 Dose: 15 mls/hr Sodium Chloride (Ns Inj) 250 mls @ 15 mls/hr IV.SIG ONCE BALDO Stop: 01/28/18 13:39 Lactulose (Lactulose Liq) 30 ml NG/OG Q6H BALDO Ondansetron HCl (Zofran Inj) 4 mg IV.PUSH Q6H PRN PRN Reason: NAUSEA OR VOMITING Sodium Chloride (Ns Flush) 2 ml IV.FLUSH BID BALDO Sodium Chloride (Ns Flush) 2 ml IV.FLUSH PRN PRN PRN Reason: FLUSH AFTER USING IV ACCESS Allergies Allergy/AdvReac Type Severity Reaction Status Date / Time No Known Allergies Allergy Verified 01/27/18 17:55 Results - Labs CBC & Chem 7: 01/29/18 09:05 01/30/18 03:20 Labs: Short CBC 01/27/18 Range/Units 16:10 WBC 20.9 H (4.0-11.0) th/mm3 Hgb 7.6 L (11.6-15.3) gm/dL Hct 22.7 L (35.0-46.0) % Plt Count 162 D (150-450) th/mm3 BMP 01/27/18 16:30 Sodium 140 Potassium 2.7 L* Chloride 100 Carbon Dioxide 24.7 BUN 27 H Creatinine 2.11 H Calcium 7.5 L Liver Function 01/27/18 Range/Units 16:30 Total Bilirubin 24.8 H (0.2-1.0) mg/dL AST 82 H (15-37) U/L ALT 33 (10-53) U/L Alkaline Phosphatase 149 H (45-117) U/L Albumin 1.8 L (3.4-5.0) g/dL - Imaging Impressions Abdomen Ultrasound 01/27/18 16:16 CONCLUSION: Moderate ascites. Chest X-Ray 01/27/18 16:16 CONCLUSION: Minimal focal patchiness is noted within the left lung base consistent with possible developing infiltrate. Clinical correlation is recommended. Exam Vital signs: Vital Signs 01/27/18 16:12 01/27/18 17:00 01/27/18 17:51 Temperature 96.9 F L 97.8 F Pulse Rate 126 H 123 H 116 H Respiratory Rate 18 20 18 Blood Pressure 116/63 99/52 L 113/63 Pulse Oximetry 100 100 100 01/27/18 18:40 01/27/18 18:55 01/27/18 19:00 Temperature 97.6 F 97.7 F 97.5 F L Pulse Rate 118 H 124 H 124 H Respiratory Rate 20 20 18 Blood Pressure 98/52 L 89/49 L 114/62 Pulse Oximetry 99 100 100 01/27/18 19:55 Temperature 97.5 F L Pulse Rate 124 H Respiratory Rate 18 Blood Pressure 114/62 Pulse Oximetry 100 Intake & Output 01/27/18 01/27/18 01/28/18 06:59 18:59 06:59 Intake Total 1050 / 1050 Balance 1050 / 1050 Weight 68.039 kg Intake: IV 1050 / 1050 Zosyn 3.375 GM Premix 50 ML @ 50 / 50 100 mls/hr IV.SIG ONCE ONE Rx#: [id number] NS Inj 1,000 ML @ Wide Open IV. 1000 / 1000 SIG BOLUS ONE Rx#:[id number] Intake (Blood Product) Amt 0 / 0 Rbc As-3 Leukoreduced Unit 0 / 0 [id number] Narrative: GENERAL: Chronically ill-appearing under-nourished jaundiced female who is laying in bed, becomes restless with stimulation. SKIN: Warm and dry, jaundiced. There are multiple sub-centimeter skin wounds on arms and legs consistent with scratching/picking (likely secondary to pruritis from liver disease). HEAD: Atraumatic. Normocephalic. EYES: Pupils equal and round, 5 mm and reactive to 3 mm bilaterally. +icterus. ENT: No nasal bleeding or discharge. Mucous membranes pink NECK: Trachea midline. No JVD. CARDIOVASCULAR: Tachycardic, regular, sinus tach on the monitor. No murmurs rubs or gallops. RESPIRATORY: CTAB no w/r/r. GASTROINTESTINAL: Abdomen soft, distended with fluid wave, no apparent tenderness/rebound/guarding. MUSCULOSKELETAL: Extremities without clubbing, cyanosis, or edema. No obvious deformities. NEUROLOGICAL: Eyes open to noxious stimuli, moans, localizes with all extremities but does not follow commands. + asterixis. Septic Shock Reassessment Septic shock perfusion: reassessment completed Caprini VTE Risk Assessment Caprini VTE Risk Assessment: Moderate/High Risk (score >= 2) VTE Pharmacological Exception Reason: Coagulopathy,INR elevated Caprini Risk Assessment Model: Point Value = 1 Point Value = 2 Point Value = 3 Point Value = 5 Age 41-60 Minor surgery BMI > 25 kg/m2 Swollen legs Varicose veins or History of unexplained or recurrent spontaneous Oral contraceptives or hormone replacement Sepsis (< 1 month) Serious lung disease, including pneumonia (< 1 month) Abnormal pulmonary function Acute myocardial infarction Congestive heart failure (< 1 month) History of inflammatory bowel disease Medical patient at bed rest Age 61-74 Arthroscopic surgery Major open surgery (> 45 min) Laparoscopic surgery (> 45 min) Malignancy Confined to bed (> 72 hours) Immobilizing plaster cast Central venous access Age >= 75 History of VTE Family history of VTE Factor V Leiden Prothrombin [id number] Lupus anticoagulant Anticardiolipin antibodies Elevated serum homocysteine Heparin-induced thrombocytopenia Other congenital or acquired thrombophilia Stroke (< 1 month) Elective arthroplasty Hip, pelvis, or leg fracture Acute spinal cord injury (< 1 month) Prophylaxis Regimen: Total Risk Factor Score Risk Level Prophylaxis Regimen 0-1 Low Early ambulation 2 Moderate Order ONE of the following: *Sequential Compression Device (SCD) *Heparin 5000 units SQ BID 3-4 Higher Order ONE of the following medications: *Heparin 5000 units SQ TID *Enoxaparin/Lovenox 40 mg SQ daily (WT < 150 kg, CrCl > 30 mL/min) *Enoxaparin/Lovenox 30 mg SQ daily (WT < 150 kg, CrCl > 10-29 mL/min) *Enoxaparin/Lovenox 30 mg SQ BID (WT < 150 kg, CrCl > 30 mL/min) AND/OR *Sequential Compression Device (SCD) 5 or more Highest Order ONE of the following medications: *Heparin 5000 units SQ TID (Preferred with Epidurals) *Enoxaparin/Lovenox 40 mg SQ daily (WT < 150 kg, CrCl > 30 mL/min) *Enoxaparin/Lovenox 30 mg SQ daily (WT < 150 kg, CrCl > 10-29 mL/min) *Enoxaparin/Lovenox 30 mg SQ BID (WT < 150 kg, CrCl > 30 mL/min) AND *Sequential Compression Device (SCD) Assessment and Plan - Problem List (1) Hepatic encephalopathy Code(s): K72.90 - Hepatic failure, unspecified without coma Status: Acute (2) Portal hypertensive gastropathy Code(s): K76.6 - Portal hypertension; K31.89 - Other diseases of stomach and duodenum Status: Chronic (3) Alcohol dependence Code(s): F10.20 - Alcohol dependence, uncomplicated Status: Chronic (4) End stage liver disease Code(s): K72.90 - Hepatic failure, unspecified without coma Status: Chronic (5) Cirrhosis Code(s): K74.60 - Unspecified cirrhosis of liver Status: Chronic (6) Acute GI bleeding Code(s): K92.2 - Gastrointestinal hemorrhage, unspecified Status: Acute (7) Sepsis Code(s): A41.9 - Sepsis, unspecified organism Status: Acute (8) Coagulopathy Code(s): D68.9 - Coagulation defect, unspecified Status: Chronic (9) Thrombocytopenia Code(s): D69.6 - Thrombocytopenia, unspecified Status: Chronic (10) SUKHJINDER (acute kidney injury) Code(s): N17.9 - Acute kidney failure, unspecified Status: Acute (11) Acute blood loss anemia Code(s): D62 - Acute posthemorrhagic anemia Status: Acute (12) Ascites Code(s): R18.8 - Other ascites Status: Chronic (13) Polysubstance abuse Code(s): F19.10 - Other psychoactive substance abuse, uncomplicated Status: Acute (14) Tobacco abuse Code(s): Z72.0 - Tobacco use Status: Acute (15) Protein-energy malnutrition Code(s): E46 - Unspecified protein-calorie malnutrition Status: Chronic (16) Hypokalemia Code(s): E87.6 - Hypokalemia Status: Acute - Assessment and Plan Plan: NEURO: Acute hepatic encephalopathy Alcohol dependence History of polysubstance abuse including cocaine EtOH and Tylenol levels normal on admission. CT brain 01/27 negative Ammonia is 137. Lactulose 30 mL's 4 times daily. Rifaximin 550 mg twice daily. Thiamine/multivitamin/folic acid per OG. RESP: Tobacco abuse Nasal cannula wean as tolerated CV: Monitor vitals GI: End-stage liver disease Cirrhosis, MELD 35 (predicted 3 month survival 47%) Moderate ascites with most recent paracentesis 01/02 Chronic hepatitis C Alcoholic hepatitis NG tube inserted for meds (recent EGD did not show varices) Has been treated for alcoholic hepatitis per GI. discriminant function has been elevated, currently greater than 80. Will continue prednisone as cannot give pentoxifylline down the tube and she is unable to take p.o. currently. Protonix drip, serial Hgb. GI consult for bleeding. Serial hgb and address coagulopathy as per below. Diagnostic paracentesis. Hold lasix/spironolactone at this time. Inderal when stabilized. Chronic moderate protein energy malnutrition Enteral tube feeds when diet advancement appropriate from GI standpoint. FEN/RENAL: Acute kidney injury Hypokalemia Hepatorenal vs pre-renal dehydration vs ATN secondary to sepsis/acute blood loss Feurea, cpk, urine eos. Volume expansion with PRBC/FFP transfusions. Monitor I/O. Bladder scanning and I/O cath prn. KCL 40 MEQ IV, f/u potassium ID: Leukocytosis Sepsis Healthcare associated pneumonia versus aspiration Chest x-ray with left lower lobe infiltrate. Recent hospitalization so she is at risk for healthcare associated organisms. Receiving Zosyn and vancomycin dose per ED. Will continue Zosyn 3.375 g IV every 6 hours for pseudomonal coverage dosed based on calculated creatinine clearance of 23. We will send blood culture, UA and urine culture. She is at risk for SBP. Will perform diagnostic paracentesis. HEME: Acute blood loss overlying chronic anemia Coagulopathy secondary to end-stage liver disease Thrombocytopenia Will give vitamin K 10 mg IV now and 10 mg IV daily for a total of 3 doses for nutritional repletion. FFP 2 units for INR 2.3, down to 1.8. Will transfuse additional 2 units FFP prior to paracentesis. Transfuse platelets as needed for count less than 50 with active bleeding. Serial hemoglobin every 6 hours and transfuse as indicated for hemoglobin less than 7 or hemodynamic instability ENDO: Euglycemic PROPH: SCDs for DVT prophylaxis. Avoid pharmacologic DVT prophylaxis at this time as she is coagulopathic and procedure is anticipated. Protonix drip as per above. ACCESS: Right IJ central venous line placed 01/27 #1. Patient is critically ill with ESLD, hepatic encephalopathy and multiorgan dysfunction. She is high at high risk for further decompensation and . Critical care time 50 minutes exclusive of separately billable procedures.
[2018-01-27 21:14] LABS: Phosphorus 2.6 mg/dL (2.5-4.9)
[2018-01-27 21:20] LABS: Creatine Kinase 46 U/L (26-192)
--- NOTE | 2018-01-27 21:23 | CT ---
EXAM DATE: 01/27/2018 4:35 PM EDT AGE/SEX: 47 years / Female INDICATIONS: Altered mental status. CLINICAL DATA: This is the patient's initial encounter. Patient reports that signs and symptoms have been present for 1 day and indicates a pain score of Nonresponsive. MEDICAL/SURGICAL HISTORY: Hepatitis. Cirrhosis. GI bleed. Hysterectomy. RADIATION DOSE: 31.54 CTDI (mGy) COMPARISON: [facility] [place], CT BRAIN W/O CONTRAST, 10/22/2016. . TECHNIQUE: CT of the head without contrast. Using automated exposure control and adjustment of the mA and/or kV according to patient size, radiation dose was kept as low as reasonably achievable to ob tain optimal diagnostic quality images. DICOM format image data is available electronically for revi ew and comparison. FINDINGS: Cerebrum: The ventricles are normal for age. No evidence of midline shift, mass lesion, hemorrhage or acute infarction. No extraaxial fluid collections are seen. Posterior Fossa: The cerebellum and brainstem are intact. The 4th ventricle is midline. The cerebe llopontine angle is unremarkable. Extracranial: The visualized portion of the orbits is intact. Skull: The calvaria is intact. No evidence of skull fracture. CONCLUSION: No acute intracranial abnormality demonstrated. . Electronically signed by: Dc Qiu MD 01/27/2018 9:22 PM EDT
--- NOTE | 2018-01-27 22:35 | P.PCN ---
Date of procedure: 01/27/18 Procedure: DATE: 01/27/18 CENTRAL LINE PLACEMENT: Right IJ vein. INDICATION: Central venous access CONSENT Patient is not capacitated for medical decision-making. Procedure was done emergently as she is critically ill and in need of IV access. Multiple nurses have been unsuccessful in obtaining peripheral IV. DESCRIPTION OF THE PROCEDURE The patient was placed in supine position, mild Trendelenburg. The skin was cleansed with Chloraprep x4. Additional barrier precautions included large sterile drape, sterile gloves, sterile gown, face mask, and hat. 1 % lidocaine was used for local anesthesia. Under direct ultrasound guidance and on single attempt, the vein was accessed with an introducer needle. The guide wire was advanced and the tract was dilated. Using Seldinger technique a 7 [place] 20 cm antimicrobial coated triple-lumen catheter was advanced to a depth of 18 centimeters. The guide wire was removed. All ports had good return of dark venous blood and flushed easily with saline. The central line was secured with 2.0 silk after StatLock would not adhere.. A sterile dressing with antibiotic disc was applied. ESTIMATED BLOOD LOSS: Minimal COMPLICATIONS: No apparent complications. STAT chest x-ray demonstrates satisfactory central venous line position without apparent complication.
[2018-01-27] MEDS ORDERED: Mag Sulf 1 gm/100 ml Premix 100 ML IV.SIG ONE (22:40)
--- NOTE | 2018-01-27 22:54 | XR ---
EXAM DATE: 01/27/2018 10:22 PM EDT AGE/SEX: 47 years / Female INDICATIONS: Central line placement and OG tube placement. CLINICAL DATA: This is the patient's initial encounter. Patient reports that signs and symptoms have been present for 1 day and indicates a pain score of Nonresponsive. MEDICAL/SURGICAL HISTORY: . Cirrhosis. Hepatitis. Liver failure. Hysterectomy . [place] [facility] [place]27/2018. . FINDINGS: Orogastric tube has its tip in the distal stomach. There is a right internal jugular central venous c atheter with tip in the right atrium. Trace left base parenchymal infiltrate again noted, not significantly changed. No pleural effusion. N o pneumothorax. Stable, within normal limits. CONCLUSION: 1. Orogastric tube and right IJ line placement as above. 2. Mild parenchymal consolidation of the left base not significantly changed. Electronically signed by: Dc Qiu MD 01/27/2018 10:52 PM EDT
[2018-01-27] MEDS: rifAXIMin 550 MG Tablet NG/OG SCH (23:12)
[2018-01-27] MEDS: Piperacil/Tazo 3.375 GM Premix 50 ML IV.SIG SCH (23:12)
[2018-01-28 01:15] LABS: Hematocrit 28.2 % (35.0-46.0); Hemoglobin 9.8 gm/dL (11.6-15.3); Mean Corpuscular HGB Conc 34.7 % (32.0-36.0); Mean Corpuscular Hemoglobin 31.2 pg (27.0-34.0); Mean Platelet Volume 8.1 fL (7.0-11.0); Platelet Count 111 th/mm3 (150-450); Red Blood Count 3.14 mil/mm3 (4.00-5.30); Red Cell Distribution Width 18.3 % (11.6-17.2); White Blood Count 20.1 th/mm3 (4.0-11.0)
[2018-01-28 01:21] LABS: Activated Partial Thrombo Time 33.3 sec (24.3-30.1); INR 1.8 Ratio; Prothrombin Time 18.7 sec (9.8-11.6)
[2018-01-28 03:43] LABS: Baso % (Auto) 0.2 % (0.0-2.0); Eos % (Auto) 0.2 % (0.0-4.0); Hematocrit 27.9 % (35.0-46.0); Hemoglobin 9.7 gm/dL (11.6-15.3); Lymph # (Auto) 1.5 th/mm3 (1.0-4.8); Lymph % (Auto) 9.2 % (9.0-44.0); Mean Corpuscular HGB Conc 34.8 % (32.0-36.0); Mean Corpuscular Hemoglobin 31.4 pg (27.0-34.0); Mean Corpuscular Volume 90.3 fL (80.0-100.0); Mean Platelet Volume 7.9 fL (7.0-11.0); Mono # (Auto) 1.4 th/mm3 (0.0-0.9); Mono % (Auto) 8.8 % (0.0-8.0); Neut # (Auto) 12.9 th/mm3 (1.8-7.7); Neut % (Auto) 81.6 % (16.0-70.0); Platelet Count 100 th/mm3 (150-450); Red Blood Count 3.09 mil/mm3 (4.00-5.30); Red Cell Distribution Width 18.3 % (11.6-17.2); White Blood Count 15.8 th/mm3 (4.0-11.0)
[2018-01-28 03:52] LABS: INR 1.8 Ratio; Prothrombin Time 17.8 sec (9.8-11.6)
[2018-01-28] MEDS: Chlorhexidine Gluconate 2% 1 Pack (2 Cloths) TOPICAL SCH (04:00)
[2018-01-28] MEDS ORDERED: Chlorhexidine Gluconate 2% 1 Pack (2 Cloths) TOPICAL PRN (04:00)
[2018-01-28] MEDS ORDERED: Sodium Chlor 0.9% Inj 250 ML IV.SIG SCH (04:00)
--- NOTE | 2018-01-28 06:06 | P.PCN ---
Date of procedure: 01/28/18 Procedure: Procedure: Diagnostic paracentesis Indication: Sepsis, rule out SBP Details of procedure: Patient is not capacitated for medical decision-making. I have made multiple attempts to reach her family and have been unable to reach them. She has sepsis and multiorgan failure with immunocompromised state due to end-stage liver disease and is at risk for SBP. It is in her best interest to obtain diagnostic studies which can allow appropriate treatment and/or de-escalation of therapy, therefore I am proceeding with diagnostic paracentesis after making all efforts to mitigate risk via treatment of coagulopathy. The patient was positioned supine. Abdomen examined with ultrasound for appropriate site placement. Site marked and abdominal wall was prepared with ChloraPrep x3. Regional sterile drapes were applied. 1% lidocaine 5 mL was used to create a wheel and then inject to the peritoneum. 8 [place] kit catheter over needle apparatus was advanced into skin and then into peritoneal cavity using Z-technique. Ten mL of straw colored fluid was aspirated. The catheter was advanced over the needle but no additional fluid was aspirated as patient began thrashing around the bed and catheter dislodged. The catheter was removed and a bandage was applied. Fluid will be sent for cell count, gram stain and culture. Estimated blood loss: minimal Complications: None apparent.
[2018-01-28] MEDS: Piperacil/Tazo 3.375 GM Premix 50 ML IV.SIG SCH ×3 (06:29→18:26)
[2018-01-28] MEDS: Pantoprazole Inj 80 MG in Sodium Chlor 0.9% Inj 100 ML IV.CONT SCH ×2 (06:30→16:31)
[2018-01-28 06:51] LABS: Baso % (Auto) 0.1 % (0.0-2.0); Eos # (Auto) 0.1 th/mm3 (0.0-0.4); Eos % (Auto) 0.4 % (0.0-4.0); Hematocrit 24.2 % (35.0-46.0); Hemoglobin 8.6 gm/dL (11.6-15.3); Lymph # (Auto) 1.2 th/mm3 (1.0-4.8); Mean Corpuscular HGB Conc 35.6 % (32.0-36.0); Mean Corpuscular Volume 89.9 fL (80.0-100.0); Mean Platelet Volume 8.2 fL (7.0-11.0); Mono # (Auto) 1.3 th/mm3 (0.0-0.9); Mono % (Auto) 9.6 % (0.0-8.0); Neut # (Auto) 11.2 th/mm3 (1.8-7.7); Neut % (Auto) 80.9 % (16.0-70.0); Platelet Count 85 th/mm3 (150-450); Red Cell Distribution Width 18.8 % (11.6-17.2); White Blood Count 13.8 th/mm3 (4.0-11.0)
[2018-01-28 06:58] LABS: Bacteria,Urine Occasional /hpf; Bilirubin,Urine Moderate (Negative); Clarity,Urine Clear (Clear); Color,Urine Amber (Yellw/Straw); Glucose,Urine (UA) Negative (Negative); Hyaline Casts,Urine 1 /lpf (0-3); Leukocyte Esterase,Urine Negative (Negative); Mucus,Urine Few /lpf (Occasional); Nitrite,Urine Negative (Negative); Specific Gravity,Urine 1.011 (1.002-1.035); Squamous Epithelial Cell,Urine 1 /hpf (0-5); Urobilinogen,Urine 4 or Greater mg/dL (Less than 2)
[2018-01-28 07:07] LABS: Amphetamine Screen,Urine Neg (Neg); Barbiturate Screen,Urine Neg (Neg); Cannabinoid Screen,Urine Neg (Neg); Cocaine Screen,Urine Pos (Neg)
[2018-01-28 07:13] LABS: Ictotest,Urine Positive (Negative)
[2018-01-28 07:23] LABS: Opiate Screen,Urine Neg (Neg)
[2018-01-28 07:33] LABS: % Iron Saturation 90.1 % (20-50)
[2018-01-28 07:53] LABS: Albumin 2.4 g/dL (3.4-5.0); Calcium 7.3 mg/dL (8.5-10.1); Carbon Dioxide 29.6 meq/L (21.0-32.0); Phosphorus 1.7 mg/dL (2.5-4.9); Total Protein 5.8 g/dL (6.4-8.2)
[2018-01-28 07:54] LABS: RBC,Peritoneal Fluid 20 /mm3 (0-0)
[2018-01-28 07:58] LABS: Mesothelial,Peritoneal Fluid 3 %; Neutrophils,Peritoneal Fluid 38 %
[2018-01-28 08:02] LABS: Potassium 2.5 meq/L (3.5-5.1)
[2018-01-28] MEDS ORDERED: Potassium Phosphate Inj 30 MMOL in Sodium Chlor 0.9% Inj 250 ML IV.SIG PRN (08:59)
[2018-01-28] MEDS ORDERED: Magnesium Sulfate Inj 4 GM in Sodium Chlor 0.9% Inj 92 ML IV.SIG PRN (08:59)
[2018-01-28] MEDS ORDERED: Potassium Chlor 40 mEq Premix 40 MEQ/100 ML PIGGYBACK IV.SIG PRN (08:59)
[2018-01-28] MEDS ORDERED: Magnesium Oxide 400 MG Tablet PO PRN (08:59)
[2018-01-28] MEDS ORDERED: Potassium Chloride 25 MEQ Effervescent Tablet PO PRN (08:59)
[2018-01-28] MEDS ORDERED: Potassium Phosphate 500 MG Soluble Tablet PO PRN ×2 (08:59)
[2018-01-28] MEDS ORDERED: Sodium Phosphate Inj 30 MMOL in Sodium Chlor 0.9% Inj 250 ML IV.SIG PRN (08:59)
[2018-01-28] MEDS ORDERED: Magnesium Sulfate Inj 2 GM in Sodium Chlor 0.9% Inj 96 ML IV.SIG PRN (08:59)
[2018-01-28] MEDS ORDERED: Potassium Chlor 20 mEq Premix 20 MEQ/100 ML PIGGYBACK IV.SIG PRN ×2 (08:59)
--- NOTE | 2018-01-28 10:47 | P.PNCC ---
Subjective Subjective Remarks/Hospital Course: Hospital Course: History was obtained through discussion with ED physician and review of EMR. Patient is not able to provide history. I attempted to contact her son, Spike العراقي, and there was no answer. I also attempted to contact her ex-, Saeid Murray, and there was no answer. According to [facility] her ex- was recently transported for cardiac arrest. It is unknown whether he . 47-year-old female with past medical history of alcohol dependence, cirrhosis, chronic hepatitis C, gastritis and portal hypertensive gastropathy, prior esophageal varices band ligation x2 in 2016, cocaine abuse. She presented to [facility] emergency department via [facility] with altered mental status and jaundice. She had a melena BM. No vomiting. Her Hgb is 7.6. Prior was 9.1 on 01/05. Her INR is 2.3. She is receiving 2 units PRBC per ED physician and has been given octreotide 100 mcg IV and started on protonix drip. I am ordering vitamin K 10 mg and 2 units FFP. Temp is 96.9, sinus tach in 120s, BP 114/62. She has leukocytosis 20k and has been treated empirically for sepsis with zosyn and vancomycin. She has moderate ascites. She is at risk for SBP, will do diagnostic paracentesis after coagulopathy addressed. She also is lethargic with ammonia level 137. She has received lactulose enema. CT brain is pending. Creatinine is 2.11 with most recent range being about 1.1- 1.42. Last EGD 01/02/18 showed portal hypertensive gastropathy and erythematous gastritis. There were no varices at that time. In she had gastric ulcers that did not require intervention. She has had esophageal varices with banding back in 2016. Subjective: 01/28: no improvements. continues with active melena. have discussed the case with Dr. Aldana at length: last 2 scopes recently have been portal gastropathy without any interveneable lesions. She would not be a candidate for TIPS due to her severe hepatic encephalopathy. she has not been compliant with optimal medical therapy for portal hypertension, and continues to use cocaine. She is end-stage, and Dr. Aldana and I agree that Hospice is most appropriate. I have spoken with a personal friend, Crow Steward ([phone]) who states that the patient's ex- Saeid Murray who usually acts as her medical decision maker last week (Crow has Saeid's phone which is his contact number). Ms. Murray has 3 adult sons: Spike Small ([phone] ), Stanislaw, and Mateo. I have spoken with Spike: Stanislaw and Mateo are apparently estranged from the patient, and it may be difficult to contact them or have them participate in the medical decision-making of the patient. Spike states that his mother told him she "never wanted to be hooked up to machines." I explained that this was likely a terminal and fatal GI bleed, and with her liver failure, even if she did not have a GI bleed, her life expectancy would be less than 3 months based on her current MELD score. He agrees with our assessment that Hospice is appropriate. In addition to this, although we do not have any scanned Advanced Directives available to me from prior admissions, I have three separate nursing documentation from prior admissions, all stating the patient wished to be DNR (11/04/15- Samia Dumas, 04/08- Joan Gillespie, 02/21/14- Leah Ac). I am currently awaiting to hear from Stanislaw or Mateo. The patient remains encephalopathic and unable to participate in goals of care discussions, and continues to have active melena. Objective Vital Signs / I&O: Vital Signs 01/27/18 16:12 01/27/18 17:00 01/27/18 17:51 Temperature 36.1 C L 36.6 C Pulse Rate 126 H 123 H 116 H Respiratory Rate 18 20 18 Blood Pressure 116/63 99/52 L 113/63 Pulse Oximetry 100 100 100 01/27/18 18:40 01/27/18 18:55 01/27/18 19:00 Temperature 36.4 C 36.5 C 36.4 C L Pulse Rate 118 H 124 H 124 H Respiratory Rate 20 20 18 Blood Pressure 98/52 L 89/49 L 114/62 Pulse Oximetry 99 100 100 01/27/18 19:55 01/27/18 21:30 01/27/18 21:50 Temperature 36.4 C L 36.9 C Pulse Rate 124 H 121 H 122 H Respiratory Rate 18 18 18 Blood Pressure 114/62 131/62 131/62 Pulse Oximetry 100 100 100 01/27/18 22:00 01/27/18 22:05 01/27/18 23:00 Temperature 36.9 C Pulse Rate 121 H 121 H 128 H Respiratory Rate 15 20 21 Blood Pressure 129/74 129/74 129/78 Pulse Oximetry 100 100 100 01/28/18 00:00 01/28/18 00:02 01/28/18 00:18 Temperature 36.8 C 36.8 C 36.9 C Pulse Rate 109 H 108 H 106 H Respiratory Rate 15 12 15 Blood Pressure 117/70 117/71 126/75 Pulse Oximetry 99 98 100 01/28/18 01:00 01/28/18 01:12 01/28/18 01:28 Temperature 36.9 C 36.9 C Pulse Rate 112 H 106 H 107 H Respiratory Rate 13 14 13 Blood Pressure 126/64 126/64 123/61 Pulse Oximetry 100 100 100 01/28/18 02:00 01/28/18 03:00 01/28/18 03:29 Temperature 36.7 C Pulse Rate 104 H 102 H 102 H Respiratory Rate 15 12 14 Blood Pressure 129/67 140/78 156/79 H Pulse Oximetry 100 100 100 01/28/18 03:45 01/28/18 04:00 01/28/18 04:13 Temperature 36.8 C 36.8 C 36.7 C Pulse Rate 99 H 99 H 99 H Respiratory Rate 12 13 16 Blood Pressure 127/67 133/70 123/70 Pulse Oximetry 100 100 100 01/28/18 04:28 01/28/18 05:00 01/28/18 06:00 Temperature 36.7 C Pulse Rate 96 H 99 H 101 H Respiratory Rate 15 18 22 Blood Pressure 126/76 136/79 133/81 Pulse Oximetry 100 100 100 01/28/18 07:30 Temperature Pulse Rate Respiratory Rate Blood Pressure Pulse Oximetry 99 Intake & Output 01/27/18 01/28/18 01/28/18 18:59 06:59 18:59 Intake Total 1050 / 1050 2280 / 2280 Output Total 1075 / 1075 Balance 1050 / 1050 1205 / 1205 Weight 68.039 kg 66.8 kg Intake: IV 1050 / 1050 350 / 350 Protonix Inj 80 MG In NS Inj 100 / 100 100 ML @ 10 mls/hr IV.CONT CONT MARGARETTE Rx#:[id number] Magnesium Sulfate 1 gm/D5W 100 100 / 100 ml Premix 100 ML @ 100 mls/hr IV.SIG ONCE ONE Rx#:[id number] Zosyn 3.375 GM Premix 50 ML @ 50 / 50 50 / 50 100 mls/hr IV.SIG Q6HR MARGARETTE Rx#: [id number] KCl 20 mEq Premix Inj 20 meq In 100 / 100 100 ml @ 50 mls/hr IV.SIG ONCE ONE Rx#:[id number] NS Inj 1,000 ML @ Wide Open IV. 1000 / 1000 SIG BOLUS ONE Rx#:[id number] Water Bolus Amount 200 / 200 Intake (Blood Product) Amt 0 / 0 1730 / 1730 Plasma Thawed 5 Day Cp2d Unit 0 / 0 [id number] Plasma Thawed 5 Day Cp2d Unit 296 / 296 [id number] Plasma Thawed 5 Day Cp2d Unit 338 / 338 [id number] Plasma Thawed 5 Day Cp2d Unit 296 / 296 [id number] Rbc As-3 Leukoreduced Unit 400 / 400 [id number] Rbc As-3 Leukoreduced Unit 0 / 0 400 / 400 [id number] Output: Urine Amount (Catheter) 1075 / 1075 Straight 1075 / 1075 Other: Date of Last Bowel Movement 01/27/18 # Bowel Movements 0 Weight On Admission 66.8 kg Result Diagrams: 01/28/18 09:50 01/28/18 06:20 Objective Remarks: GENERAL: Chronically ill-appearing under-nourished jaundiced female who is laying in bed, becomes restless with stimulation. SKIN: Warm and dry, jaundiced. There are multiple sub-centimeter skin wounds on arms and legs consistent with scratching/picking HEAD: Atraumatic. Normocephalic. EYES: Pupils equal and round, reactive bilaterally. +icterus. ENT: No nasal bleeding or discharge. Mucous membranes pink NECK: Trachea midline. No JVD. CARDIOVASCULAR: Tachycardic, regular, sinus tach on the monitor. No murmurs rubs or gallops. RESPIRATORY: equal chest rise. nc o2. GASTROINTESTINAL: Abdomen soft, distended with fluid wave, no apparent tenderness/rebound/guarding. +melena in the bed. MUSCULOSKELETAL: Extremities without clubbing, cyanosis, or edema. No obvious deformities. NEUROLOGICAL: Eyes open to noxious stimuli, moans, localizes with all extremities but does not follow commands. + asterixis. Assessment and Plan - Assessment and Plan Plan: Assessment: 47yF with acute gastrointestinal bleeding likely secondary to coagulopathy from end-stage liver disease. Unlikely to improve. I agree with Dr. Aldana that this is terminal and hospice is appropriate. All of the available data that I have access to, including prior medical records, as well as my discussions with Mr. Steward and her son Spike are consistent with the patient wishing to be DNR code status and without aggressive goals of care. In congruence with this, we will make the patient DNR. We will give some time for her other two sons to be contacted to see if they wish to participate in the medical decision-making process, however due to the acuity of the patient and her critical illness, we cannot wait days to see if they are reachable. If we are unable to reach them after thorough efforts have been made, Spike has agreed with our medical opinion that hospice care is most appropriate, and all of the available evidence presented to me from family and close friend discussions as well as past medical records would suggest to me the patient's wishes are most consistent with Hospice care, and we will move forward with this. Fro now she remains critically ill with life-threatening GI bleeding in the setting of terminal end-stage liver disease. NEURO: Acute hepatic encephalopathy Alcohol dependence History of polysubstance abuse including cocaine EtOH and Tylenol levels normal on admission. CT brain 01/27 negative Ammonia is 137. Lactulose 30 mL's 4 times daily. Rifaximin 550 mg twice daily. Thiamine/multivitamin/folic acid per OG. RESP: Tobacco abuse Nasal cannula wean as tolerated CV: Monitor vitals GI: End-stage liver disease Cirrhosis, Admission MELD 35 (predicted 3 month survival 47%) Moderate ascites with most recent paracentesis 01/02 Chronic hepatitis C Alcoholic hepatitis NG tube inserted for meds (recent EGD did not show varices) Has been treated for alcoholic hepatitis per GI. discriminant function has been elevated, currently greater than 80. Will continue prednisone as cannot give pentoxifylline down the tube and she is unable to take p.o. currently. Protonix drip, serial Hgb. GI consulted for bleeding. Serial hgb and address coagulopathy as per below. Diagnostic paracentesis. Hold lasix/spironolactone at this time. Inderal when stabilized. Chronic moderate protein energy malnutrition Enteral tube feeds when diet advancement appropriate from GI standpoint. FEN/RENAL: Acute kidney injury Hypokalemia Hepatorenal vs pre-renal dehydration vs ATN secondary to sepsis/acute blood loss Feurea, cpk, urine eos. Volume expansion with PRBC/FFP transfusions. Monitor I/O. Bladder scanning and I/O cath prn. KCL 40 MEQ IV, f/u potassium ID: Leukocytosis Sepsis Healthcare associated pneumonia versus aspiration Chest x-ray with left lower lobe infiltrate. Recent hospitalization so she is at risk for healthcare associated organisms. Receiving Zosyn and vancomycin dose per ED. Will continue Zosyn 3.375 g IV every 6 hours for pseudomonal coverage dosed based on calculated creatinine clearance of 23. We will send blood culture, UA and urine culture. She is at risk for SBP. Will perform diagnostic paracentesis. HEME: Acute blood loss overlying chronic anemia Coagulopathy secondary to end-stage liver disease Thrombocytopenia s/p vitamin K 10 mg IV now and 10 mg IV daily for a total of 3 doses for nutritional repletion. FFP 2 units for INR 2.3, down to 1.8. s/p 2 additional units ffp. Transfuse platelets as needed for count less than 50 with active bleeding. Serial hemoglobin every 6 hours and transfuse as indicated for hemoglobin less than 7 or hemodynamic instability ENDO: Euglycemic PROPH: SCDs for DVT prophylaxis. Avoid pharmacologic DVT prophylaxis at this time as she is coagulopathic and procedure is anticipated. Protonix drip as per above. ACCESS: Right IJ central venous line placed 01/27 #2. Patient is critically ill with ESLD, hepatic encephalopathy and multiorgan dysfunction. She is high at high risk for further decompensation and . Critical care time 44 minutes exclusive of separately billable procedures.
--- NOTE | 2018-01-28 10:57 | P.CONGI ---
History of Present Illness Consult date: 01/28/18 Chief complaint: GI Bleed, Anemia, encephalopathy, hypokalemia History of Present Illness: Ms. Murray is a 47-year-old female with a significant past medical history for alcoholic dependence, cirrhosis, chronic hepatitis C, gastritis and portal hypertensive gastropathy. Patient underwent banding and ligation of esophageal varices x2 in 2015. Patient also has history of cocaine abuse. This patient presented to [facility] on 01/27/2018 with altered mental status and jaundice. Melena stools were noted on arrival. No reported vomiting. This patient has a moderate to large amount of abdominal ascites due to her history of cirrhosis. Diagnostic paracentesis attempted this a.m. per patient's nurse, small amount of fluid obtained for cytology. Most recent hemoglobin 9.0. As patient has received 2 units of packed RBCs and 4 units of fresh frozen plasma. INR 1.8 platelet count 85 total bilirubin 29.1 AST 84 ALT 34 alk phos 134.TIBC of 182 and iron saturation of 90.1. Of note patient's ammonia level is 180. patient currently receiving lactulose via NG every 6 hours . Last EGD 01/02/2018 showed portal hypertensive gastropathy and erythematous gastritis no varices were noted at that time. Upon exam of patient during consult, a large amount of black tarry stools are noted with scant amount of dark emesis and NG tube. Patient currently on pantoprazole drip and octreotide drip has been ordered. We will schedule patient for EGD today. <Leanne Torres - Last Filed: 01/28/18 10:34> Review of Systems All other systems reviewed negative except as stated in HPI <Leanne Torres - Last Filed: 01/28/18 10:34> PMFSH - History History Provided By: Medical Record - Medical History Medical History: Medical History (Last Reviewed 01/28/18 @ 07:31 by Landen Cortez) Portal hypertensive gastropathy (Acute) Hepatitis C, chronic (Acute) Liver failure (Chronic) Post hysterectomy menopause (Acute) Cirrhosis (Chronic) EtOH dependence History of hysterectomy Hepatitis Renal failure - Surgical History Surgical History: Surgical History (Last Reviewed 01/28/18 @ 07:31 by Landen Cortez) History of esophagogastroduodenoscopy (EGD) History of open reduction and internal fixation (ORIF) procedure Hx of colonoscopy - Family History Family History: Family History (Last Updated 01/28/18 @ 04:24 by Erin Vick MD) Mother Pancreatic cancer Liver cancer Esophageal cancer Father EtOH dependence Cirrhosis - Tobacco History Second Hand Smoke Exposure: Yes Smoking Status: Smoker, status unknown Tobacco Type: Cigarettes - Alcohol History How Often Do You Have a Drink Containing Alcohol: Unable to Obtain - Substance Use History Substance History: Unable to Obtain - Travel History Recent Travel in the [place] Within the Last 8 Weeks: No Recent Travel Out of the Country Within the Last 8 Weeks: No - Immunization History Tetanus Immunization: Unable to Assess <Leanne Torres - Last Filed: 01/28/18 10:34> - Medical History Medical History: Medical History (Last Reviewed 01/28/18 @ 07:31 by Landen Cortez) Portal hypertensive gastropathy (Acute) Hepatitis C, chronic (Acute) Liver failure (Chronic) Post hysterectomy menopause (Acute) Cirrhosis (Chronic) EtOH dependence History of hysterectomy Hepatitis Renal failure - Surgical History Surgical History: Surgical History (Last Reviewed 01/28/18 @ 07:31 by Lnaden Cortez) History of esophagogastroduodenoscopy (EGD) History of open reduction and internal fixation (ORIF) procedure Hx of colonoscopy - Family History Family History: Family History (Last Updated 01/28/18 @ 04:24 by Erin Vick MD) Mother Pancreatic cancer Liver cancer Esophageal cancer Father EtOH dependence Cirrhosis <Antonette Aldana - Last Filed: 01/28/18 11:45> Medications and Allergies Active Medications: Active Medications Albuterol (Albuterol Neb (Prn)) 2.5 mg NEB Q2HR NEB PRN PRN Reason: SHORTNESS OF BREATH/WHEEZING Chlorhexidine Gluconate (Chlorhexidine 2% Cloth) 3 pack TOPICAL DAILY@0400 MARGARETTE Stop: 02/02/18 03:59 Last Admin: 01/28/18 04:00 Dose: 3 pack Chlorhexidine Gluconate (Chlorhexidine 2% Cloth) 3 pack TOPICAL DAILY@0400 PRN PRN Reason: Extra cloth needed Stop: 02/02/18 03:59 Folic Acid (Folic Acid) 1 mg NG/OG DAILY MARGARETTE Pantoprazole Sodium 80 mg/ (Sodium Chloride) 100 mls @ 10 mls/hr IV.CONT CONT MARGARETTE Last Admin: 01/28/18 06:30 Dose: 10 mls/hr Sodium Chloride (Ns Inj) 250 mls @ 15 mls/hr IV.SIG ONCE MARGARETTE Stop: 01/28/18 10:39 Last Admin: 01/27/18 18:31 Dose: 15 mls/hr Sodium Chloride (Ns Inj) 250 mls @ 15 mls/hr IV.SIG ONCE MARGARETTE Stop: 01/28/18 13:39 Last Admin: 01/27/18 21:50 Dose: 15 mls/hr Piperacillin/Tazobactam/Dextrose (Zosyn 3.375 Gm Premix) 50 mls @ 100 mls/hr IV.SIG Q6HR MARGARETTE Last Admin: 01/28/18 06:29 Dose: 100 mls/hr Phytonadione 10 mg/ Sodium (Chloride) 51 mls @ 102 mls/hr IV.SIG ONCE ONE Stop: 01/28/18 21:29 Sodium Chloride (Ns Inj) 250 mls @ 15 mls/hr IV.SIG ONCE MARGARETTE Stop: 01/28/18 20:39 Last Admin: 01/28/18 04:00 Dose: 15 mls/hr Magnesium Sulfate 4 gm/ Sodium (Chloride) 100 mls @ 50 mls/hr IV.SIG UNSCH PRN PRN Reason: For Magnesium 0.9 - 1.1 mg/dL Magnesium Sulfate 2 gm/ Sodium (Chloride) 100 mls @ 50 mls/hr IV.SIG UNSCH PRN PRN Reason: For Magnesium 1.2 - 1.6 mg/dL Potassium Chloride (Kcl 40 Meq Premix Inj) 40 meq in 100 mls @ 25 mls/hr IV.SIG Q2H PRN PRN Reason: For Potassium 2.8 - 3.2 mEq/L Potassium Chloride (Kcl 20 Meq Premix Inj) 20 meq in 100 mls @ 50 mls/hr IV.SIG Q2H PRN PRN Reason: For Potassium 3.3 - 3.5 mEq/L Potassium Chloride (Kcl 40 Meq Premix Inj) 40 meq in 100 mls @ 25 mls/hr IV.SIG UNSCH PRN PRN Reason: For Potassium 3.3 - 3.5 mEq/L Potassium Chloride (Kcl 20 Meq Premix Inj) 20 meq in 100 mls @ 50 mls/hr IV.SIG Q2H PRN PRN Reason: For Potassium 2.8 - 3.2 mEq/L Potassium Phosphate 30 mmol/ (Sodium Chloride) 260 mls @ 42 mls/hr IV.SIG UNSCH PRN PRN Reason: SEE LABEL COMMENTS Sodium Phosphate 30 mmol/ (Sodium Chloride) 260 mls @ 42 mls/hr IV.SIG UNSCH PRN PRN Reason: For Phosphorus < 2.5 mg/dL Octreotide Acetate 500 mcg/ (Sodium Chloride) 500.5 mls @ 25.02 mls/hr IV.CONT .Q20H1M [facility] Lactulose (Lactulose Liq) 30 ml NG/OG Q6H [facility] Last Admin: 01/28/18 02:55 Dose: 30 ml Magnesium Oxide (Mag-Ox) 800 mg PO UNSCH PRN PRN Reason: For Magnesium 1.2 - 1.6 mg/dL Multivitamins/Minerals (Theragran-M) 1 tab NG/OG DAILY [facility] Octreotide Acetate (Sandostatin Inj) 50 mcg IV.PUSH ONCE ONE Stop: 01/28/18 11:01 Ondansetron HCl (Zofran Inj) 4 mg IV.PUSH Q6H PRN PRN Reason: NAUSEA OR VOMITING Potassium Bicarb/Potassium Chloride (K-Lyte Cl Eff) 50 meq PO UNSCH PRN PRN Reason: For Potassium 3.3 - 3.5 mEq/L Potassium Phosphate (K-Phos Original) 2,000 mg PO Q4H PRN PRN Reason: Phosphorus Less Than 2.5 mg/dL Potassium Phosphate (K-Phos Original) 2,000 mg PO UNSCH PRN PRN Reason: SEE LABEL COMMENTS Prednisone (Deltasone) 20 mg NG/OG DAILY [facility] Rifaximin (Xifaxan) 550 mg NG/OG Q12HR [facility] Last Admin: 01/27/18 23:12 Dose: 550 mg Sodium Chloride (Ns Flush) 2 ml IV.FLUSH BID MARGARETTE Last Admin: 01/27/18 23:03 Dose: Not Given Sodium Chloride (Ns Flush) 2 ml IV.FLUSH PRN PRN PRN Reason: FLUSH AFTER USING IV ACCESS Thiamine HCl (Vitamin B1) 100 mg NG/OG DAILY [facility] <Leanne Torres - Last Filed: 01/28/18 10:34> Active Medications: Active Medications Albuterol (Albuterol Neb (Prn)) 2.5 mg NEB Q2HR NEB PRN PRN Reason: SHORTNESS OF BREATH/WHEEZING Chlorhexidine Gluconate (Chlorhexidine 2% Cloth) 3 pack TOPICAL DAILY@0400 MARGARETTE Stop: 02/02/18 03:59 Last Admin: 01/28/18 04:00 Dose: 3 pack Chlorhexidine Gluconate (Chlorhexidine 2% Cloth) 3 pack TOPICAL DAILY@0400 PRN PRN Reason: Extra cloth needed Stop: 02/02/18 03:59 Folic Acid (Folic Acid) 1 mg NG/OG DAILY MARG[facility]ETTE Pantoprazole Sodium 80 mg/ (Sodium Chloride) 100 mls @ 10 mls/hr IV.CONT CONT [facility]ETTE Last Admin: 01/28/18 06:30 Dose: 10 mls/hr Sodium Chloride (Ns Inj) 250 mls @ 15 mls/hr IV.SIG ONCE MARGARETTE Stop: 01/28/18 13:39 Last Admin: 01/27/18 21:50 Dose: 15 mls/hr Piperacillin/Tazobactam/Dextrose (Zosyn 3.375 Gm Premix) 50 mls @ 100 mls/hr IV.SIG Q6HR [facility] Last Admin: 01/28/18 06:29 Dose: 100 mls/hr Phytonadione 10 mg/ Sodium (Chloride) 51 mls @ 102 mls/hr IV.SIG ONCE ONE Stop: 01/28/18 21:29 Sodium Chloride (Ns Inj) 250 mls @ 15 mls/hr IV.SIG ONCE MARGARETTE Stop: 01/28/18 20:39 Last Admin: 01/28/18 04:00 Dose: 15 mls/hr Magnesium Sulfate 4 gm/ Sodium (Chloride) 100 mls @ 50 mls/hr IV.SIG UNSCH PRN PRN Reason: For Magnesium 0.9 - 1.1 mg/dL Magnesium Sulfate 2 gm/ Sodium (Chloride) 100 mls @ 50 mls/hr IV.SIG UNSCH PRN PRN Reason: For Magnesium 1.2 - 1.6 mg/dL Potassium Chloride (Kcl 40 Meq Premix Inj) 40 meq in 100 mls @ 25 mls/hr IV.SIG Q2H PRN PRN Reason: For Potassium 2.8 - 3.2 mEq/L Potassium Chloride (Kcl 20 Meq Premix Inj) 20 meq in 100 mls @ 50 mls/hr IV.SIG Q2H PRN PRN Reason: For Potassium 3.3 - 3.5 mEq/L Potassium Chloride (Kcl 40 Meq Premix Inj) 40 meq in 100 mls @ 25 mls/hr IV.SIG UNSCH PRN PRN Reason: For Potassium 3.3 - 3.5 mEq/L Potassium Chloride (Kcl 20 Meq Premix Inj) 20 meq in 100 mls @ 50 mls/hr IV.SIG Q2H PRN PRN Reason: For Potassium 2.8 - 3.2 mEq/L Potassium Phosphate 30 mmol/ (Sodium Chloride) 260 mls @ 42 mls/hr IV.SIG UNSCH PRN PRN Reason: SEE LABEL COMMENTS Sodium Phosphate 30 mmol/ (Sodium Chloride) 260 mls @ 42 mls/hr IV.SIG UNSCH PRN PRN Reason: For Phosphorus < 2.5 mg/dL Octreotide Acetate 500 mcg/ (Sodium Chloride) 500.5 mls @ 25.02 mls/hr IV.CONT .Q20H1M [facility] Lactulose (Lactulose Liq) 30 ml NG/OG Q6H [facility] Last Admin: 01/28/18 02:55 Dose: 30 ml Magnesium Oxide (Mag-Ox) 800 mg PO UNSCH PRN PRN Reason: For Magnesium 1.2 - 1.6 mg/dL Multivitamins/Minerals (Theragran-M) 1 tab NG/OG DAILY [facility] Ondansetron HCl (Zofran Inj) 4 mg IV.PUSH Q6H PRN PRN Reason: NAUSEA OR VOMITING Potassium Bicarb/Potassium Chloride (K-Lyte Cl Eff) 50 meq PO UNSCH PRN PRN Reason: For Potassium 3.3 - 3.5 mEq/L Potassium Phosphate (K-Phos Original) 2,000 mg PO Q4H PRN PRN Reason: Phosphorus Less Than 2.5 mg/dL Potassium Phosphate (K-Phos Original) 2,000 mg PO UNSCH PRN PRN Reason: SEE LABEL COMMENTS Prednisone (Deltasone) 20 mg NG/OG DAILY [facility] Rifaximin (Xifaxan) 550 mg NG/OG Q12HR [facility] Last Admin: 01/27/18 23:12 Dose: 550 mg Sodium Chloride (Ns Flush) 2 ml IV.FLUSH BID [facility] Last Admin: 01/27/18 23:03 Dose: Not Given Sodium Chloride (Ns Flush) 2 ml IV.FLUSH PRN PRN PRN Reason: FLUSH AFTER USING IV ACCESS Thiamine HCl (Vitamin B1) 100 mg NG/OG DAILY MARG[facility]ETTE <Antonette Aldana - Last Filed: 01/28/18 11:45> Allergies Allergy/AdvReac Type Severity Reaction Status Date / Time No Known Allergies Allergy Verified 01/27/18 17:55 Exam Vital signs: Vital Signs 01/27/18 16:12 01/27/18 17:00 01/27/18 17:51 Temperature 96.9 F L 97.8 F Pulse Rate 126 H 123 H 116 H Respiratory Rate 18 20 18 Blood Pressure 116/63 99/52 L 113/63 Pulse Oximetry 100 100 100 01/27/18 18:40 01/27/18 18:55 01/27/18 19:00 Temperature 97.6 F 97.7 F 97.5 F L Pulse Rate 118 H 124 H 124 H Respiratory Rate 20 20 18 Blood Pressure 98/52 L 89/49 L 114/62 Pulse Oximetry 99 100 100 01/27/18 19:55 01/27/18 21:30 01/27/18 21:50 Temperature 97.5 F L 98.5 F Pulse Rate 124 H 121 H 122 H Respiratory Rate 18 18 18 Blood Pressure 114/62 131/62 131/62 Pulse Oximetry 100 100 100 01/27/18 22:00 01/27/18 22:05 01/27/18 23:00 Temperature 98.5 F Pulse Rate 121 H 121 H 128 H Respiratory Rate 15 20 21 Blood Pressure 129/74 129/74 129/78 Pulse Oximetry 100 100 100 01/28/18 00:00 01/28/18 00:02 01/28/18 00:18 Temperature 98.2 F 98.2 F 98.4 F Pulse Rate 109 H 108 H 106 H Respiratory Rate 15 12 15 Blood Pressure 117/70 117/71 126/75 Pulse Oximetry 99 98 100 01/28/18 01:00 01/28/18 01:12 01/28/18 01:28 Temperature 98.5 F 98.5 F Pulse Rate 112 H 106 H 107 H Respiratory Rate 13 14 13 Blood Pressure 126/64 126/64 123/61 Pulse Oximetry 100 100 100 01/28/18 02:00 01/28/18 03:00 01/28/18 03:29 Temperature 98.0 F Pulse Rate 104 H 102 H 102 H Respiratory Rate 15 12 14 Blood Pressure 129/67 140/78 156/79 H Pulse Oximetry 100 100 100 01/28/18 03:45 01/28/18 04:00 01/28/18 04:13 Temperature 98.2 F 98.3 F 98.0 F Pulse Rate 99 H 99 H 99 H Respiratory Rate 12 13 16 Blood Pressure 127/67 133/70 123/70 Pulse Oximetry 100 100 100 01/28/18 04:28 01/28/18 05:00 01/28/18 06:00 Temperature 98.1 F Pulse Rate 96 H 99 H 101 H Respiratory Rate 15 18 22 Blood Pressure 126/76 136/79 133/81 Pulse Oximetry 100 100 100 01/28/18 07:30 Temperature Pulse Rate Respiratory Rate Blood Pressure Pulse Oximetry 99 Intake & Output 01/27/18 01/28/18 01/28/18 18:59 06:59 18:59 Intake Total 1050 / 1050 2280 / 2280 Output Total 1075 / 1075 Balance 1050 / 1050 1205 / 1205 Weight 68.039 kg 66.8 kg Intake: IV 1050 / 1050 350 / 350 Protonix Inj 80 MG In NS Inj 100 / 100 100 ML @ 10 mls/hr IV.CONT CONT MARGARETTE Rx#:[id number] Magnesium Sulfate 1 gm/D5W 100 100 / 100 ml Premix 100 ML @ 100 mls/hr IV.SIG ONCE ONE Rx#:[id number] Zosyn 3.375 GM Premix 50 ML @ 50 / 50 50 / 50 100 mls/hr IV.SIG Q6HR MARGARETTE Rx#: [id number] KCl 20 mEq Premix Inj 20 meq In 100 / 100 100 ml @ 50 mls/hr IV.SIG ONCE ONE Rx#:[id number] NS Inj 1,000 ML @ Wide Open IV. 1000 / 1000 SIG BOLUS ONE Rx#:[id number] Water Bolus Amount 200 / 200 Intake (Blood Product) Amt 0 / 0 1730 / 1730 Plasma Thawed 5 Day Cp2d Unit 0 / 0 [id number] Plasma Thawed 5 Day Cp2d Unit 296 / 296 [id number] Plasma Thawed 5 Day Cp2d Unit 338 / 338 [id number] Plasma Thawed 5 Day Cp2d Unit 296 / 296 [id number] Rbc As-3 Leukoreduced Unit 400 / 400 [id number] Rbc As-3 Leukoreduced Unit 0 / 0 400 / 400 [id number] Output: Urine Amount (Catheter) 1075 / 1075 Straight 1075 / 1075 Other: Date of Last Bowel Movement 01/27/18 # Bowel Movements 0 Weight On Admission 66.8 kg - Constitutional chronically ill appearing, agitated - Routine HEENT Exam Head: Present: normocephalic Eye: Present: conjunctival icterus Comments: ng tube in place - Routine Respiratory Exam Present: CTA bilaterally. Absent: accessory muscle use - Routine Cardiovascular Exam Present: RRR, tachycardia - Routine Abdominal Exam Present: normoactive bowel sounds, distended, firm - Routine Extremities Exam Present: pulses intact. Absent: cyanosis, clubbing, edema - Routine Skin Exam Present: dry, warm, jaundice - Routine Neurological Exam Present: altered mental status, moving all extremities <Torres,Leanne - Last Filed: 01/28/18 10:34> Vital signs: Vital Signs 01/27/18 16:12 01/27/18 17:00 01/27/18 17:51 Temperature 96.9 F L 97.8 F Pulse Rate 126 H 123 H 116 H Respiratory Rate 18 20 18 Blood Pressure 116/63 99/52 L 113/63 Pulse Oximetry 100 100 100 01/27/18 18:40 01/27/18 18:55 01/27/18 19:00 Temperature 97.6 F 97.7 F 97.5 F L Pulse Rate 118 H 124 H 124 H Respiratory Rate 20 20 18 Blood Pressure 98/52 L 89/49 L 114/62 Pulse Oximetry 99 100 100 01/27/18 19:55 01/27/18 21:30 01/27/18 21:50 Temperature 97.5 F L 98.5 F Pulse Rate 124 H 121 H 122 H Respiratory Rate 18 18 18 Blood Pressure 114/62 131/62 131/62 Pulse Oximetry 100 100 100 01/27/18 22:00 01/27/18 22:05 01/27/18 23:00 Temperature 98.5 F Pulse Rate 121 H 121 H 128 H Respiratory Rate 15 20 21 Blood Pressure 129/74 129/74 129/78 Pulse Oximetry 100 100 100 01/28/18 00:00 01/28/18 00:02 01/28/18 00:18 Temperature 98.2 F 98.2 F 98.4 F Pulse Rate 109 H 108 H 106 H Respiratory Rate 15 12 15 Blood Pressure 117/70 117/71 126/75 Pulse Oximetry 99 98 100 01/28/18 01:00 01/28/18 01:12 01/28/18 01:28 Temperature 98.5 F 98.5 F Pulse Rate 112 H 106 H 107 H Respiratory Rate 13 14 13 Blood Pressure 126/64 126/64 123/61 Pulse Oximetry 100 100 100 01/28/18 02:00 01/28/18 03:00 01/28/18 03:29 Temperature 98.0 F Pulse Rate 104 H 102 H 102 H Respiratory Rate 15 12 14 Blood Pressure 129/67 140/78 156/79 H Pulse Oximetry 100 100 100 01/28/18 03:45 01/28/18 04:00 01/28/18 04:13 Temperature 98.2 F 98.3 F 98.0 F Pulse Rate 99 H 99 H 99 H Respiratory Rate 12 13 16 Blood Pressure 127/67 133/70 123/70 Pulse Oximetry 100 100 100 01/28/18 04:28 01/28/18 05:00 01/28/18 06:00 Temperature 98.1 F Pulse Rate 96 H 99 H 101 H Respiratory Rate 15 18 22 Blood Pressure 126/76 136/79 133/81 Pulse Oximetry 100 100 100 01/28/18 07:30 Temperature Pulse Rate Respiratory Rate Blood Pressure Pulse Oximetry 99 Intake & Output 01/27/18 01/28/18 01/28/18 18:59 06:59 18:59 Intake Total 1050 / 1050 2280 / 2280 Output Total 1075 / 1075 Balance 1050 / 1050 1205 / 1205 Weight 68.039 kg 66.8 kg Intake: IV 1050 / 1050 350 / 350 Protonix Inj 80 MG In NS Inj 100 / 100 100 ML @ 10 mls/hr IV.CONT CONT MARGARETTE Rx#:[id number] Magnesium Sulfate 1 gm/D5W 100 100 / 100 ml Premix 100 ML @ 100 mls/hr IV.SIG ONCE ONE Rx#:[id number] Zosyn 3.375 GM Premix 50 ML @ 50 / 50 50 / 50 100 mls/hr IV.SIG Q6HR MARGARETTE Rx#: [id number] KCl 20 mEq Premix Inj 20 meq In 100 / 100 100 ml @ 50 mls/hr IV.SIG ONCE ONE Rx#:[id number] NS Inj 1,000 ML @ Wide Open IV. 1000 / 1000 SIG BOLUS ONE Rx#:[id number] Water Bolus Amount 200 / 200 Intake (Blood Product) Amt 0 / 0 1730 / 1730 Plasma Thawed 5 Day Cp2d Unit 0 / 0 [id number] Plasma Thawed 5 Day Cp2d Unit 296 / 296 [id number] Plasma Thawed 5 Day Cp2d Unit 338 / 338 [id number] Plasma Thawed 5 Day Cp2d Unit 296 / 296 [id number] Rbc As-3 Leukoreduced Unit 400 / 400 [id number] Rbc As-3 Leukoreduced Unit 0 / 0 400 / 400 [id number] Output: Urine Amount (Catheter) 1075 / 1075 Straight 1075 / 1075 Other: Date of Last Bowel Movement 01/27/18 # Bowel Movements 0 Weight On Admission 66.8 kg <Antonette Aldana - Last Filed: 01/28/18 11:45> Results - Labs CBC & Chem 7: 01/28/18 09:50 01/28/18 06:20 Labs: Laboratory Results - last 24 hr 01/27/18 01/27/18 01/27/18 16:10 16:30 16:30 WBC 20.9 H RBC 2.38 L Hgb 7.6 L Hct 22.7 L MCV 95.1 MCH 31.7 MCHC 33.3 RDW 24.9 H Plt Count 162 D MPV 9.0 Prelim Diff (Auto) Neut % (Auto) 87.7 H Lymph % (Auto) 5.0 L [place] % (Auto) 7.0 Eos % (Auto) 0.2 Baso % (Auto) 0.1 Neut # (Auto) 18.3 H Lymph # (Auto) 1.1 [place] # (Auto) 1.5 H Eos # (Auto) 0.0 Baso # (Auto) 0.0 WBC Differential . Diff Scan Differential Comment Auto diff final PT 23.5 H INR 2.3 APTT 36.9 H Fibrinogen Puncture Site Patient Temperature O2 Saturation ABG pH ABG pCO2 ABG pO2 ABG HCO3 ABG O2 Content ABG Base Excess ABG Methemoglobin Som Test Hemoglobin Carboxyhemoglobin O2 Delivery Device Liter Flow Critical Value Sodium 140 Potassium 2.7 L* Chloride 100 Carbon Dioxide 24.7 Anion Gap 15 BUN 27 H Creatinine 2.11 H Estimated GFR 25 L POC Glucose Random Glucose 88 Lactic Acid Calcium 7.5 L Prot Corrected Calcium Phosphorus Magnesium Iron TIBC % Saturation Total Bilirubin 24.8 H AST 82 H ALT 33 Alkaline Phosphatase 149 H Ammonia Total Creatine Kinase Total Protein 5.7 L Albumin 1.8 L Lipase 104 Urine Color Urine Clarity Urine pH Ur Specific [place] Urine Protein Urine Glucose (UA) Urine Ketones Urine Occult Blood Urine Nitrate Urine Bilirubin Urine Ictotest Urine Urobilinogen Ur Leukocyte Esterase Urine RBC Urine WBC Ur Squamous Epith Cells Urine Bacteria Hyaline Casts Urine Mucus Micro UA Comment Ur Microscopic Review Urine Culture Comments Urine Eosinophils Ur Random Creatinine Ur Random Sodium Peritoneal RBC [place] Nuc Cells [place] Neutrophils [place] Lymphocytes Peritoneal Monocytes [place] Mesothelial Peritoneal Plasma Cell Peritoneal Other Cells Nasal Screen MRSA (PCR) Urine Opiates Screen Acetaminophen Ur Barbiturates Screen Ur Amphetamines Screen U Benzodiazepines Scrn Urine Cocaine Screen U Cannabinoids Screen Serum Alcohol Less than 3 Blood Type Antibody Screen MTS Gel Crossmatch Blood Bank Comment Bld Prod Order Comment 01/27/18 01/27/18 01/27/18 16:30 16:30 16:30 WBC RBC Hgb Hct MCV MCH MCHC RDW Plt Count MPV Prelim Diff (Auto) Neut % (Auto) Lymph % (Auto) [place] % (Auto) Eos % (Auto) Baso % (Auto) Neut # (Auto) Lymph # (Auto) [place] # (Auto) Eos # (Auto) Baso # (Auto) WBC Differential Diff Scan Differential Comment PT INR APTT Fibrinogen Puncture Site Patient Temperature O2 Saturation ABG pH ABG pCO2 ABG pO2 ABG HCO3 ABG O2 Content ABG Base Excess ABG Methemoglobin Som Test Hemoglobin Carboxyhemoglobin O2 Delivery Device Liter Flow Critical Value Sodium Potassium Chloride Carbon Dioxide Anion Gap BUN Creatinine Estimated GFR POC Glucose Random Glucose Lactic Acid Calcium Prot Corrected Calcium Phosphorus Magnesium Iron TIBC % Saturation Total Bilirubin AST ALT Alkaline Phosphatase Ammonia 137 H Total Creatine Kinase Total Protein Albumin Lipase Urine Color Urine Clarity Urine pH Ur Specific [place] Urine Protein Urine Glucose (UA) Urine Ketones Urine Occult Blood Urine Nitrate Urine Bilirubin Urine Ictotest Urine Urobilinogen Ur Leukocyte Esterase Urine RBC Urine WBC Ur Squamous Epith Cells Urine Bacteria Hyaline Casts Urine Mucus Micro UA Comment Ur Microscopic Review Urine Culture Comments Urine Eosinophils Ur Random Creatinine Ur Random Sodium Peritoneal RBC [place] Nuc Cells Per[place] Neutrophils [place] Lymphocytes Peritoneal Monocytes [place] Mesothelial Peritoneal Plasma Cell Peritoneal Other Cells Nasal Screen MRSA (PCR) Urine Opiates Screen Acetaminophen Ur Barbiturates Screen Ur Amphetamines Screen U Benzodiazepines Scrn Urine Cocaine Screen U Cannabinoids Screen Serum Alcohol Blood Type O Negative Antibody Screen Negative MTS Gel Crossmatch See Detail Blood Bank Comment Bld Prod Order Comment 01/27/18 01/27/18 01/27/18 17:49 19:04 19:15 WBC RBC Hgb Hct MCV MCH MCHC RDW Plt Count MPV Prelim Diff (Auto) Neut % (Auto) Lymph % (Auto) [place] % (Auto) Eos % (Auto) Baso % (Auto) Neut # (Auto) Lymph # (Auto) [place] # (Auto) Eos # (Auto) Baso # (Auto) WBC Differential Diff Scan Differential Comment PT INR APTT Fibrinogen Puncture Site Right radial Patient Temperature 98.6 O2 Saturation 98 ABG pH 7.47 H ABG pCO2 33 L ABG pO2 148 H ABG HCO3 23 ABG O2 Content 9.2 L ABG Base Excess 0.0 ABG Methemoglobin 0.0 Som Test Present Hemoglobin 6.5 L* Carboxyhemoglobin 2.1 O2 Delivery Device Nasal cannula Liter Flow 3.00 Critical Value Yes Sodium Potassium Chloride Carbon Dioxide Anion Gap BUN Creatinine Estimated GFR POC Glucose 104 Random Glucose Lactic Acid 5.1 H* Calcium Prot Corrected Calcium Phosphorus Magnesium Iron TIBC % Saturation Total Bilirubin AST ALT Alkaline Phosphatase Ammonia Total Creatine Kinase Total Protein Albumin Lipase Urine Color Urine Clarity Urine pH Ur Specific [place] Urine Protein Urine Glucose (UA) Urine Ketones Urine Occult Blood Urine Nitrate Urine Bilirubin Urine Ictotest Urine Urobilinogen Ur Leukocyte Esterase Urine RBC Urine WBC Ur Squamous Epith Cells Urine Bacteria Hyaline Casts Urine Mucus Micro UA Comment Ur Microscopic Review Urine Culture Comments Urine Eosinophils Ur Random Creatinine Ur Random Sodium Peritoneal RBC [place] Nuc Cells Per[place] Neutrophils [place] Lymphocytes Peritoneal Monocytes [place] Mesothelial Peritoneal Plasma Cell Peritoneal Other Cells Nasal Screen MRSA (PCR) Urine Opiates Screen Acetaminophen Ur Barbiturates Screen Ur Amphetamines Screen U Benzodiazepines Scrn Urine Cocaine Screen U Cannabinoids Screen Serum Alcohol Blood Type Antibody Screen MTS Gel Crossmatch Blood Bank Comment Bld Prod Order Comment 01/27/18 01/27/18 01/27/18 19:15 19:15 20:18 WBC RBC Hgb Hct MCV MCH MCHC RDW Plt Count MPV Prelim Diff (Auto) Neut % (Auto) Lymph % (Auto) [place] % (Auto) Eos % (Auto) Baso % (Auto) Neut # (Auto) Lymph # (Auto) [place] # (Auto) Eos # (Auto) Baso # (Auto) WBC Differential Diff Scan Differential Comment PT INR APTT Fibrinogen Puncture Site Patient Temperature O2 Saturation ABG pH ABG pCO2 ABG pO2 ABG HCO3 ABG O2 Content ABG Base Excess ABG Methemoglobin Som Test Hemoglobin Carboxyhemoglobin O2 Delivery Device Liter Flow Critical Value Sodium Potassium Chloride Carbon Dioxide Anion Gap BUN Creatinine Estimated GFR POC Glucose Random Glucose Lactic Acid Calcium Prot Corrected Calcium Phosphorus 2.6 Magnesium 1.5 Iron TIBC % Saturation Total Bilirubin AST ALT Alkaline Phosphatase Ammonia Total Creatine Kinase 46 Total Protein Albumin Lipase Urine Color Urine Clarity Urine pH Ur Specific [place] Urine Protein Urine Glucose (UA) Urine Ketones Urine Occult Blood Urine Nitrate Urine Bilirubin Urine Ictotest Urine Urobilinogen Ur Leukocyte Esterase Urine RBC Urine WBC Ur Squamous Epith Cells Urine Bacteria Hyaline Casts Urine Mucus Micro UA Comment Ur Microscopic Review Urine Culture Comments Urine Eosinophils Ur Random Creatinine Ur Random Sodium Peritoneal RBC [place] Nuc Cells [place] Neutrophils [place] Lymphocytes Peritoneal Monocytes [place] Mesothelial Peritoneal Plasma Cell Peritoneal Other Cells Nasal Screen MRSA (PCR) Urine Opiates Screen Acetaminophen Less than 2.0 L Ur Barbiturates Screen Ur Amphetamines Screen U Benzodiazepines Scrn Urine Cocaine Screen U Cannabinoids Screen Serum Alcohol Blood Type Antibody Screen MTS Gel Crossmatch Blood Bank Comment Bld Prod Order Comment 01/27/18 01/28/18 01/28/18 22:00 01:00 01:00 WBC 20.1 H RBC 3.14 L Hgb 9.8 L D Hct 28.2 L MCV 90.0 D MCH 31.2 MCHC 34.7 RDW 18.3 H D Plt Count 111 L D MPV 8.1 Prelim Diff (Auto) Neut % (Auto) Lymph % (Auto) [place] % (Auto) Eos % (Auto) Baso % (Auto) Neut # (Auto) Lymph # (Auto) [place] # (Auto) Eos # (Auto) Baso # (Auto) WBC Differential Diff Scan Differential Comment PT 18.7 H INR 1.8 APTT 33.3 H Fibrinogen Puncture Site Patient Temperature O2 Saturation ABG pH ABG pCO2 ABG pO2 ABG HCO3 ABG O2 Content ABG Base Excess ABG Methemoglobin Som Test Hemoglobin Carboxyhemoglobin O2 Delivery Device Liter Flow Critical Value Sodium Potassium Chloride Carbon Dioxide Anion Gap BUN Creatinine Estimated GFR POC Glucose Random Glucose Lactic Acid Calcium Prot Corrected Calcium Phosphorus Magnesium Iron TIBC % Saturation Total Bilirubin AST ALT Alkaline Phosphatase Ammonia Total Creatine Kinase Total Protein Albumin Lipase Urine Color Urine Clarity Urine pH Ur Specific [place] Urine Protein Urine Glucose (UA) Urine Ketones Urine Occult Blood Urine Nitrate Urine Bilirubin Urine Ictotest Urine Urobilinogen Ur Leukocyte Esterase Urine RBC Urine WBC Ur Squamous Epith Cells Urine Bacteria Hyaline Casts Urine Mucus Micro UA Comment Ur Microscopic Review Urine Culture Comments Urine Eosinophils Ur Random Creatinine Ur Random Sodium Peritoneal RBC [place] Nuc Cells [place] Neutrophils [place] Lymphocytes Peritoneal Monocytes [place] Mesothelial Peritoneal Plasma Cell Peritoneal Other Cells Nasal Screen MRSA (PCR) Mrsa detected Urine Opiates Screen Acetaminophen Ur Barbiturates Screen Ur Amphetamines Screen U Benzodiazepines Scrn Urine Cocaine Screen U Cannabinoids Screen Serum Alcohol Blood Type Antibody Screen MTS Gel Crossmatch Blood Bank Comment Bld Prod Order Comment 01/28/18 01/28/18 01/28/18 01:00 03:07 03:20 WBC 15.8 H RBC 3.09 L Hgb 9.7 L Hct 27.9 L MCV 90.3 MCH 31.4 MCHC 34.8 RDW 18.3 H Plt Count 100 L MPV 7.9 Prelim Diff (Auto) Neut % (Auto) 81.6 H Lymph % (Auto) 9.2 [place] % (Auto) 8.8 H Eos % (Auto) 0.2 Baso % (Auto) 0.2 Neut # (Auto) 12.9 H Lymph # (Auto) 1.5 [place] # (Auto) 1.4 H Eos # (Auto) 0.0 Baso # (Auto) 0.0 WBC Differential . Diff Scan Differential Comment Auto diff final PT INR APTT Fibrinogen 147 L Puncture Site Patient Temperature O2 Saturation ABG pH ABG pCO2 ABG pO2 ABG HCO3 ABG O2 Content ABG Base Excess ABG Methemoglobin Som Test Hemoglobin Carboxyhemoglobin O2 Delivery Device Liter Flow Critical Value Sodium Potassium Chloride Carbon Dioxide Anion Gap BUN Creatinine Estimated GFR POC Glucose Random Glucose Lactic Acid Calcium Prot Corrected Calcium Phosphorus Magnesium Iron TIBC % Saturation Total Bilirubin AST ALT Alkaline Phosphatase [place] Total Creatine Kinase Total Protein Albumin Lipase Urine Color Urine Clarity Urine pH Ur Specific [place] Urine Protein Urine Glucose (UA) Urine Ketones Urine Occult Blood Urine Nitrate Urine Bilirubin Urine Ictotest Urine Urobilinogen Ur Leukocyte Esterase Urine RBC Urine WBC Ur Squamous Epith Cells Urine Bacteria Hyaline Casts Urine Mucus Micro UA Comment Ur Microscopic Review Urine Culture Comments Urine Eosinophils Ur Random Creatinine Ur Random Sodium Peritoneal RBC [place] Nuc Cells Per[place] Neutrophils [place] Lymphocytes Peritoneal Monocytes [place] Mesothelial Peritoneal Plasma Cell Peritoneal Other Cells Nasal Screen MRSA (PCR) Urine Opiates Screen Acetaminophen Ur Barbiturates Screen Ur Amphetamines Screen U Benzodiazepines Scrn Urine Cocaine Screen U Cannabinoids Screen Serum Alcohol Blood Type Antibody Screen [facility] Gel [facility] Blood Bank Comment Bld Prod Order Comment 01/28/18 01/28/18 01/28/18 03:20 05:40 06:05 WBC RBC Hgb Hct MCV MCH MCHC RDW Plt Count MPV Prelim Diff (Auto) Neut % (Auto) Lymph % (Auto) [place] % (Auto) Eos % (Auto) Baso % (Auto) Neut # (Auto) Lymph # (Auto) [place] # (Auto) Eos # (Auto) Baso # (Auto) WBC Differential Diff Scan Differential Comment PT 17.8 H INR 1.8 APTT Fibrinogen 154 L Puncture Site Patient Temperature O2 Saturation ABG pH ABG pCO2 ABG pO2 ABG HCO3 ABG O2 Content ABG Base Excess ABG Methemoglobin Som Test Hemoglobin Carboxyhemoglobin O2 Delivery Device Liter Flow Critical Value Sodium Potassium Chloride Carbon Dioxide Anion Gap BUN Creatinine Estimated GFR POC Glucose Random Glucose Lactic Acid Calcium Prot Corrected Calcium Phosphorus Magnesium Iron TIBC % Saturation Total Bilirubin AST ALT Alkaline Phosphatase [place] Total Creatine Kinase Total Protein Albumin Lipase Urine Color Urine Clarity Urine pH Ur Specific [place] Urine Protein Urine Glucose (UA) Urine Ketones Urine Occult Blood Urine Nitrate Urine Bilirubin Urine Ictotest Urine Urobilinogen Ur Leukocyte Esterase Urine RBC Urine WBC Ur Squamous Epith Cells Urine Bacteria Hyaline Casts Urine Mucus Micro UA Comment Ur Microscopic Review Urine Culture Comments Urine Eosinophils None seen Ur Random Creatinine Ur Random Sodium Peritoneal RBC 20 H [place] Nuc Cells 205 H [place] Neutrophils 38 [place] Lymphocytes 23 Peritoneal Monocytes 34 [place] Mesothelial 3 Peritoneal Plasma Cell 1 Peritoneal Other Cells 1 Nasal Screen MRSA (PCR) Urine Opiates Screen Acetaminophen Ur Barbiturates Screen Ur Amphetamines Screen U Benzodiazepines Scrn Urine Cocaine Screen U Cannabinoids Screen Serum Alcohol Blood Type Antibody Screen [email or web address] Gel [facility] Blood Bank Comment Bld Prod Order Comment 01/28/18 01/28/18 01/28/18 06:05 06:05 06:05 WBC RBC Hgb Hct MCV MCH MCHC RDW Plt Count MPV Prelim Diff (Auto) Neut % (Auto) Lymph % (Auto) [place] % (Auto) Eos % (Auto) Baso % (Auto) Neut # (Auto) Lymph # (Auto) [place] # (Auto) Eos # (Auto) Baso # (Auto) WBC Differential Diff Scan Differential Comment PT INR APTT Fibrinogen Puncture Site Patient Temperature O2 Saturation ABG pH ABG pCO2 ABG pO2 ABG HCO3 ABG O2 Content ABG Base Excess ABG Methemoglobin Som Test Hemoglobin Carboxyhemoglobin O2 Delivery Device Liter Flow Critical Value Sodium Potassium Chloride Carbon Dioxide Anion Gap BUN Creatinine Estimated GFR POC Glucose Random Glucose Lactic Acid Calcium Prot Corrected Calcium Phosphorus Magnesium Iron TIBC % Saturation Total Bilirubin AST ALT Alkaline Phosphatase [place] Total Creatine Kinase Total Protein Albumin Lipase Urine Color [place] Urine Clarity Clear Urine pH 6.0 Ur Specific [place] 1.011 Urine Protein Negative Urine Glucose (UA) Negative Urine Ketones Negative Urine Occult Blood Negative Urine Nitrate Negative Urine Bilirubin Moderate H Urine Ictotest Positive H Urine Urobilinogen 4 or greater Ur Leukocyte Esterase Negative Urine RBC 1 Urine WBC 1 Ur Squamous Epith Cells 1 Urine Bacteria Occasional H Hyaline Casts 1 Urine Mucus Few H Micro UA Comment Cath-culture ind Ur Microscopic Review Not Reportable Urine Culture Comments Cath-cult indicated Urine Eosinophils Ur Random Creatinine 40 Ur Random Sodium 41 Peritoneal RBC [place] Nuc Cells [place] Neutrophils [place] Lymphocytes Peritoneal Monocytes [place] Mesothelial Peritoneal Plasma Cell Peritoneal Other Cells Nasal Screen MRSA (PCR) Urine Opiates Screen Acetaminophen Ur Barbiturates Screen Ur Amphetamines Screen U Benzodiazepines Scrn Urine Cocaine Screen U Cannabinoids Screen Serum Alcohol Blood Type Antibody Screen MTS Gel Crossmatch Blood Bank Comment Bld Prod Order Comment 01/28/18 01/28/18 01/28/18 06:05 06:20 06:20 WBC 13.8 H RBC 2.70 L Hgb 8.6 L Hct 24.2 L MCV 89.9 MCH 32.0 MCHC 35.6 RDW 18.8 H Plt Count 85 L MPV 8.2 Prelim Diff (Auto) Slide review pending Neut % (Auto) 80.9 H Lymph % (Auto) 9.0 [place] % (Auto) 9.6 H Eos % (Auto) 0.4 Baso % (Auto) 0.1 Neut # (Auto) 11.2 H Lymph # (Auto) 1.2 [place] # (Auto) 1.3 H Eos # (Auto) 0.1 Baso # (Auto) 0.0 WBC Differential . Diff Scan Auto diff confirmed Differential Comment . PT INR APTT Fibrinogen Puncture Site Patient Temperature O2 Saturation ABG pH ABG pCO2 ABG pO2 ABG HCO3 ABG O2 Content ABG Base Excess ABG Methemoglobin Som Test Hemoglobin Carboxyhemoglobin O2 Delivery Device Liter Flow Critical Value Sodium 144 Potassium 2.5 L* Chloride 104 Carbon Dioxide 29.6 Anion Gap 10 BUN 29 H Creatinine 1.63 H Estimated GFR 34 L POC Glucose Random Glucose 106 Lactic Acid Calcium 7.3 L* Prot Corrected Calcium 8.0 L Phosphorus 1.7 L Magnesium 2.0 Iron TIBC % Saturation Total Bilirubin 29.1 H AST 84 H ALT 34 Alkaline Phosphatase 134 H Ammonia Total Creatine Kinase Total Protein 5.8 L Albumin 2.4 L D Lipase Urine Color Urine Clarity Urine pH Ur Specific [place] Urine Protein Urine Glucose (UA) Urine Ketones Urine Occult Blood Urine Nitrate Urine Bilirubin Urine Ictotest Urine Urobilinogen Ur Leukocyte Esterase Urine RBC Urine WBC Ur Squamous Epith Cells Urine Bacteria Hyaline Casts Urine Mucus Micro UA Comment Ur Microscopic Review Urine Culture Comments Urine Eosinophils Ur Random Creatinine Ur Random Sodium Peritoneal RBC [place] Nuc Cells [place] Neutrophils [place] Lymphocytes Peritoneal Monocytes [place] Mesothelial Peritoneal Plasma Cell Peritoneal Other Cells Nasal Screen MRSA (PCR) Urine Opiates Screen Neg Acetaminophen Ur Barbiturates Screen Neg Ur Amphetamines Screen Neg U Benzodiazepines Scrn Neg Urine Cocaine Screen Pos H U Cannabinoids Screen Neg Serum Alcohol Blood Type Antibody Screen MTS Gel Crossmatch Blood Bank Comment Bld Prod Order Comment 01/28/18 01/28/18 01/28/18 06:20 06:20 06:20 WBC RBC Hgb Hct MCV MCH MCHC RDW Plt Count MPV Prelim Diff (Auto) Neut % (Auto) Lymph % (Auto) [place] % (Auto) Eos % (Auto) Baso % (Auto) Neut # (Auto) Lymph # (Auto) [place] # (Auto) Eos # (Auto) Baso # (Auto) WBC Differential Diff Scan Differential Comment PT INR APTT Fibrinogen Puncture Site Patient Temperature O2 Saturation ABG pH ABG pCO2 ABG pO2 ABG HCO3 ABG O2 Content ABG Base Excess ABG Methemoglobin Som Test Hemoglobin Carboxyhemoglobin O2 Delivery Device Liter Flow Critical Value Sodium Potassium Chloride Carbon Dioxide Anion Gap BUN Creatinine Estimated GFR POC Glucose Random Glucose Lactic Acid 1.9 Calcium Prot Corrected Calcium Phosphorus Magnesium Iron 164 TIBC 182 L % Saturation 90.1 H Total Bilirubin AST ALT Alkaline Phosphatase Ammonia 180 H Total Creatine Kinase Total Protein Albumin Lipase Urine Color Urine Clarity Urine pH Ur Specific [place] Urine Protein Urine Glucose (UA) Urine Ketones Urine Occult Blood Urine Nitrate Urine Bilirubin Urine Ictotest Urine Urobilinogen Ur Leukocyte Esterase Urine RBC Urine WBC Ur Squamous Epith Cells Urine Bacteria Hyaline Casts Urine Mucus Micro UA Comment Ur Microscopic Review Urine Culture Comments Urine Eosinophils Ur Random Creatinine Ur Random Sodium Peritoneal RBC [place] Nuc Cells [place] Neutrophils [place] Lymphocytes Peritoneal Monocytes [place] Mesothelial Peritoneal Plasma Cell Peritoneal Other Cells Nasal Screen MRSA (PCR) Urine Opiates Screen Acetaminophen Ur Barbiturates Screen Ur Amphetamines Screen U Benzodiazepines Scrn Urine Cocaine Screen U Cannabinoids Screen Serum Alcohol Blood Type Antibody Screen [facility] Blood Bank Comment Bld Prod Order Comment 01/28/18 09:50 WBC RBC Hgb 9.0 L Hct MCV MCH MCHC RDW Plt Count MPV Prelim Diff (Auto) Neut % (Auto) Lymph % (Auto) [place] % (Auto) Eos % (Auto) Baso % (Auto) Neut # (Auto) Lymph # (Auto) [place] # (Auto) Eos # (Auto) Baso # (Auto) WBC Differential Diff Scan Differential Comment PT INR APTT Fibrinogen Puncture Site Patient Temperature O2 Saturation ABG pH ABG pCO2 ABG pO2 ABG HCO3 ABG O2 Content ABG Base Excess ABG Methemoglobin Som Test Hemoglobin Carboxyhemoglobin O2 Delivery Device Liter Flow Critical Value Sodium Potassium Chloride Carbon Dioxide Anion Gap BUN Creatinine Estimated GFR POC Glucose Random Glucose Lactic Acid Calcium Prot Corrected Calcium Phosphorus Magnesium Iron TIBC % Saturation Total Bilirubin AST ALT Alkaline Phosphatase [place] Total Creatine Kinase Total Protein Albumin Lipase Urine Color Urine Clarity Urine pH Ur Specific [place] Urine Protein Urine Glucose (UA) Urine Ketones Urine Occult Blood Urine Nitrate Urine Bilirubin Urine Ictotest Urine Urobilinogen Ur Leukocyte Esterase Urine RBC Urine WBC Ur Squamous Epith Cells Urine Bacteria Hyaline Casts Urine Mucus Micro UA Comment Ur Microscopic Review Urine Culture Comments Urine Eosinophils Ur Random Creatinine Ur Random Sodium Peritoneal RBC [place] Nuc Cells [place] Neutrophils [place] Lymphocytes Peritoneal Monocytes [place] Mesothelial Peritoneal Plasma Cell Peritoneal Other Cells Nasal Screen MRSA (PCR) Urine Opiates Screen Acetaminophen Ur Barbiturates Screen Ur Amphetamines Screen U Benzodiazepines Scrn Urine Cocaine Screen U Cannabinoids Screen Serum Alcohol Blood Type Antibody Screen [facility] Blood [facility] Comment Bld Prod Order Comment - Imaging Impressions Abdomen Ultrasound 01/27/18 16:16 CONCLUSION: Moderate ascites. Chest X-Ray 01/27/18 16:16 CONCLUSION: Minimal focal patchiness is noted within the left lung base consistent with possible developing infiltrate. Clinical correlation is recommended. Head CT 01/27/18 16:16 CONCLUSION: No acute intracranial abnormality demonstrated. . Chest X-Ray 01/27/18 22:22 CONCLUSION: 1. Orogastric tube and right IJ line placement as above. 2. Mild parenchymal consolidation of the left base not significantly changed. <Leanne Torres - Last Filed: 01/28/18 10:34> - Labs CBC & Chem 7: 01/28/18 09:50 01/28/18 06:20 Labs: Laboratory Results - last 24 hr 01/27/18 01/27/18 01/27/18 16:10 16:30 16:30 WBC 20.9 H RBC 2.38 L Hgb 7.6 L Hct 22.7 L MCV 95.1 MCH 31.7 MCHC 33.3 RDW 24.9 H Plt Count 162 D MPV 9.0 Prelim Diff (Auto) Neut % (Auto) 87.7 H Lymph % (Auto) 5.0 L [place] % (Auto) 7.0 Eos % (Auto) 0.2 Baso % (Auto) 0.1 Neut # (Auto) 18.3 H Lymph # (Auto) 1.1 [place] # (Auto) 1.5 H Eos # (Auto) 0.0 Baso # (Auto) 0.0 WBC Differential . Diff Scan Differential Comment Auto diff final PT 23.5 H INR 2.3 APTT 36.9 H Fibrinogen Puncture Site Patient Temperature O2 Saturation ABG pH ABG pCO2 ABG pO2 ABG HCO3 ABG O2 Content ABG Base Excess ABG Methemoglobin Som Test Hemoglobin Carboxyhemoglobin O2 Delivery Device Liter Flow Critical Value Sodium 140 Potassium 2.7 L* Chloride 100 Carbon Dioxide 24.7 Anion Gap 15 BUN 27 H Creatinine 2.11 H Estimated GFR 25 L POC Glucose Random Glucose 88 Lactic Acid Calcium 7.5 L Prot Corrected Calcium Phosphorus Magnesium Iron TIBC % Saturation Total Bilirubin 24.8 H AST 82 H ALT 33 Alkaline Phosphatase 149 H Ammonia Total Creatine Kinase Total Protein 5.7 L Albumin 1.8 L Lipase 104 Urine Color Urine Clarity Urine pH Ur Specific [place] Urine Protein Urine Glucose (UA) Urine Ketones Urine Occult Blood Urine Nitrate Urine Bilirubin Urine Ictotest Urine Urobilinogen Ur Leukocyte Esterase Urine RBC Urine WBC Ur Squamous Epith Cells Urine Bacteria Hyaline Casts Urine Mucus Micro UA Comment Ur Microscopic Review Urine Culture Comments Urine Eosinophils Ur Random Creatinine Ur Random Sodium Peritoneal RBC [place] Nuc Cells [place] Neutrophils [place] Lymphocytes Peritoneal Monocytes [place] Mesothelial Peritoneal Plasma Cell Peritoneal Other Cells Nasal Screen MRSA (PCR) Urine Opiates Screen Acetaminophen Ur Barbiturates Screen Ur Amphetamines Screen U Benzodiazepines Scrn Urine Cocaine Screen U Cannabinoids Screen Serum Alcohol Less than 3 Blood Type Antibody Screen MTS Gel Crossmatch Blood Bank Comment Bld Prod Order Comment 01/27/18 01/27/18 01/27/18 16:30 16:30 16:30 WBC RBC Hgb Hct MCV MCH MCHC RDW Plt Count MPV Prelim Diff (Auto) Neut % (Auto) Lymph % (Auto) [place] % (Auto) Eos % (Auto) Baso % (Auto) Neut # (Auto) Lymph # (Auto) [place] # (Auto) Eos # (Auto) Baso # (Auto) WBC Differential Diff Scan Differential Comment PT INR APTT Fibrinogen Puncture Site Patient Temperature O2 Saturation ABG pH ABG pCO2 ABG pO2 ABG HCO3 ABG O2 Content ABG Base Excess ABG Methemoglobin Som Test Hemoglobin Carboxyhemoglobin O2 Delivery Device Liter Flow Critical Value Sodium Potassium Chloride Carbon Dioxide Anion Gap BUN Creatinine Estimated GFR POC Glucose Random Glucose Lactic Acid Calcium Prot Corrected Calcium Phosphorus Magnesium Iron TIBC % Saturation Total Bilirubin AST ALT Alkaline Phosphatase Ammonia 137 H Total Creatine Kinase Total Protein Albumin Lipase Urine Color Urine Clarity Urine pH Ur Specific [place] Urine Protein Urine Glucose (UA) Urine Ketones Urine Occult Blood Urine Nitrate Urine Bilirubin Urine Ictotest Urine Urobilinogen Ur Leukocyte Esterase Urine RBC Urine WBC Ur Squamous Epith Cells Urine Bacteria Hyaline Casts Urine Mucus Micro UA Comment Ur Microscopic Review Urine Culture Comments Urine Eosinophils Ur Random Creatinine Ur Random Sodium Peritoneal RBC [place] Nuc Cells [place] Neutrophils [place] Lymphocytes Peritoneal Monocytes [place] Mesothelial Peritoneal Plasma Cell Peritoneal Other Cells Nasal Screen MRSA (PCR) Urine Opiates Screen Acetaminophen Ur Barbiturates Screen Ur Amphetamines Screen U Benzodiazepines Scrn Urine Cocaine Screen U Cannabinoids Screen Serum Alcohol Blood Type O Negative Antibody Screen Negative MTS Gel Crossmatch See Detail Blood Bank Comment Bld Prod Order Comment 01/27/18 01/27/18 01/27/18 17:49 19:04 19:15 WBC RBC Hgb Hct MCV MCH MCHC RDW Plt Count MPV Prelim Diff (Auto) Neut % (Auto) Lymph % (Auto) [place] % (Auto) Eos % (Auto) Baso % (Auto) Neut # (Auto) Lymph # (Auto) [place] # (Auto) Eos # (Auto) Baso # (Auto) WBC Differential Diff Scan Differential Comment PT INR APTT Fibrinogen Puncture Site Right radial Patient Temperature 98.6 O2 Saturation 98 ABG pH 7.47 H ABG pCO2 33 L ABG pO2 148 H ABG HCO3 23 ABG O2 Content 9.2 L ABG Base Excess 0.0 ABG Methemoglobin 0.0 Som Test Present Hemoglobin 6.5 L* Carboxyhemoglobin 2.1 O2 Delivery Device Nasal cannula Liter Flow 3.00 Critical Value Yes Sodium Potassium Chloride Carbon Dioxide Anion Gap BUN Creatinine Estimated GFR POC Glucose 104 Random Glucose Lactic Acid 5.1 H* Calcium Prot Corrected Calcium Phosphorus Magnesium Iron TIBC % Saturation Total Bilirubin AST ALT Alkaline Phosphatase [place] Total Creatine Kinase Total Protein Albumin Lipase Urine Color Urine Clarity Urine pH Ur Specific [place] Urine Protein Urine Glucose (UA) Urine Ketones Urine Occult Blood Urine Nitrate Urine Bilirubin Urine Ictotest Urine Urobilinogen Ur Leukocyte Esterase Urine RBC Urine WBC Ur Squamous Epith Cells Urine Bacteria Hyaline Casts Urine Mucus Micro UA Comment Ur Microscopic Review Urine Culture Comments Urine Eosinophils Ur Random Creatinine Ur Random Sodium Peritoneal RBC [place] Nuc Cells [place] Neutrophils [place] Lymphocytes Peritoneal Monocytes [place] Mesothelial Peritoneal Plasma Cell Peritoneal Other Cells Nasal Screen MRSA (PCR) Urine Opiates Screen Acetaminophen Ur Barbiturates Screen Ur Amphetamines Screen U Benzodiazepines Scrn Urine Cocaine Screen U Cannabinoids Screen Serum Alcohol Blood Type Antibody Screen MTS Gel Crossmatch Blood Bank Comment Bld Prod Order Comment 01/27/18 01/27/18 01/27/18 19:15 19:15 20:18 WBC RBC Hgb Hct MCV MCH MCHC RDW Plt Count MPV Prelim Diff (Auto) Neut % (Auto) Lymph % (Auto) [place] % (Auto) Eos % (Auto) Baso % (Auto) Neut # (Auto) Lymph # (Auto) [place] # (Auto) Eos # (Auto) Baso # (Auto) WBC Differential Diff Scan Differential Comment PT INR APTT Fibrinogen Puncture Site Patient Temperature O2 Saturation ABG pH ABG pCO2 ABG pO2 ABG HCO3 ABG O2 Content ABG Base Excess ABG Methemoglobin Som Test Hemoglobin Carboxyhemoglobin O2 Delivery Device Liter Flow Critical Value Sodium Potassium Chloride Carbon Dioxide Anion Gap BUN Creatinine Estimated GFR POC Glucose Random Glucose Lactic Acid Calcium Prot Corrected Calcium Phosphorus 2.6 Magnesium 1.5 Iron TIBC % Saturation Total Bilirubin AST ALT Alkaline Phosphatase [place]mon[place] Total Creatine Kinase 46 Total Protein Albumin Lipase Urine Color Urine Clarity Urine pH Ur Specific [place] Urine Protein Urine Glucose (UA) Urine Ketones Urine Occult Blood Urine Nitrate Urine Bilirubin Urine Ictotest Urine Urobilinogen Ur Leukocyte Esterase Urine RBC Urine WBC Ur Squamous Epith Cells Urine Bacteria Hyaline Casts Urine Mucus Micro UA Comment Ur Microscopic Review Urine Culture Comments Urine Eosinophils Ur Random Creatinine Ur Random Sodium Peritoneal RBC [place] Nuc Cells [place] Neutrophils [place] Lymphocytes Peritoneal Monocytes [place] Mesothelial Peritoneal Plasma Cell Peritoneal Other Cells Nasal Screen MRSA (PCR) Urine Opiates Screen Acetaminophen Less than 2.0 L Ur Barbiturates Screen Ur Amphetamines Screen U Benzodiazepines Scrn Urine Cocaine Screen U Cannabinoids Screen Serum Alcohol Blood Type Antibody Screen MTS Gel Crossmatch Blood Bank Comment Bld Prod Order Comment 01/27/18 01/28/18 01/28/18 22:00 01:00 01:00 WBC 20.1 H RBC 3.14 L Hgb 9.8 L D Hct 28.2 L MCV 90.0 D MCH 31.2 MCHC 34.7 RDW 18.3 H D Plt Count 111 L D MPV 8.1 Prelim Diff (Auto) Neut % (Auto) Lymph % (Auto) [place] % (Auto) Eos % (Auto) Baso % (Auto) Neut # (Auto) Lymph # (Auto) [place] # (Auto) Eos # (Auto) Baso # (Auto) WBC Differential Diff Scan Differential Comment PT 18.7 H INR 1.8 APTT 33.3 H Fibrinogen Puncture Site Patient Temperature O2 Saturation ABG pH ABG pCO2 ABG pO2 ABG HCO3 ABG O2 Content ABG Base Excess ABG Methemoglobin Som Test Hemoglobin Carboxyhemoglobin O2 Delivery Device Liter Flow Critical Value Sodium Potassium Chloride Carbon Dioxide Anion Gap BUN Creatinine Estimated GFR POC Glucose Random Glucose Lactic Acid Calcium Prot Corrected Calcium Phosphorus Magnesium Iron TIBC % Saturation Total Bilirubin AST ALT Alkaline Phosphatase [place] Total Creatine Kinase Total Protein Albumin Lipase Urine Color Urine Clarity Urine pH Ur Specific [place] Urine Protein Urine Glucose (UA) Urine Ketones Urine Occult Blood Urine Nitrate Urine Bilirubin Urine Ictotest Urine Urobilinogen Ur Leukocyte Esterase Urine RBC Urine WBC Ur Squamous Epith Cells Urine Bacteria Hyaline Casts Urine Mucus Micro UA Comment Ur Microscopic Review Urine Culture Comments Urine Eosinophils Ur Random Creatinine Ur Random Sodium Peritoneal RBC [place] Nuc Cells [place] Neutrophils [place] Lymphocytes Peritoneal Monocytes [place] Mesothelial Peritoneal Plasma Cell Peritoneal Other Cells Nasal Screen MRSA (PCR) Mrsa detected Urine Opiates Screen Acetaminophen Ur Barbiturates Screen Ur Amphetamines Screen U Benzodiazepines Scrn Urine Cocaine Screen U Cannabinoids Screen Serum Alcohol Blood Type Antibody Screen [facility] Gel Crossmatch Blood Bank Comment Bld Prod Order Comment 01/28/18 01/28/18 01/28/18 01:00 03:07 03:20 WBC 15.8 H RBC 3.09 L Hgb 9.7 L Hct 27.9 L MCV 90.3 MCH 31.4 MCHC 34.8 RDW 18.3 H Plt Count 100 L MPV 7.9 Prelim Diff (Auto) Neut % (Auto) 81.6 H Lymph % (Auto) 9.2 [place] % (Auto) 8.8 H Eos % (Auto) 0.2 Baso % (Auto) 0.2 Neut # (Auto) 12.9 H Lymph # (Auto) 1.5 [place] # (Auto) 1.4 H Eos # (Auto) 0.0 Baso # (Auto) 0.0 WBC Differential . Diff Scan Differential Comment Auto diff final PT INR APTT Fibrinogen 147 L Puncture Site Patient Temperature O2 Saturation ABG pH ABG pCO2 ABG pO2 ABG HCO3 ABG O2 Content ABG Base Excess ABG Methemoglobin Som Test Hemoglobin Carboxyhemoglobin O2 Delivery Device Liter Flow Critical Value Sodium Potassium Chloride Carbon Dioxide Anion Gap BUN Creatinine Estimated GFR POC Glucose Random Glucose Lactic Acid Calcium Prot Corrected Calcium Phosphorus Magnesium Iron TIBC % Saturation Total Bilirubin AST ALT Alkaline Phosphatase [place] Total Creatine Kinase Total Protein Albumin Lipase Urine Color Urine Clarity Urine pH Ur Specific [place] Urine Protein Urine Glucose (UA) Urine Ketones Urine Occult Blood Urine Nitrate Urine Bilirubin Urine Ictotest Urine Urobilinogen Ur Leukocyte Esterase Urine RBC Urine WBC Ur Squamous Epith Cells Urine Bacteria Hyaline Casts Urine Mucus Micro UA Comment Ur Microscopic Review Urine Culture Comments Urine Eosinophils Ur Random Creatinine Ur Random Sodium Peritoneal RBC [place] Nuc Cells [place] Neutrophils [place] Lymphocytes Peritoneal Monocytes [place] Mesothelial Peritoneal Plasma Cell Peritoneal Other Cells Nasal Screen MRSA (PCR) Urine Opiates Screen Acetaminophen Ur Barbiturates Screen Ur Amphetamines Screen U Benzodiazepines Scrn Urine Cocaine Screen U Cannabinoids Screen Serum Alcohol Blood Type Antibody Screen [facility] Gel Crossmatch Blood Bank Comment Bld Prod Order Comment 01/28/18 01/28/18 01/28/18 03:20 05:40 06:05 WBC RBC Hgb Hct MCV MCH MCHC RDW Plt Count MPV Prelim Diff (Auto) Neut % (Auto) Lymph % (Auto) [place] % (Auto) Eos % (Auto) Baso % (Auto) Neut # (Auto) Lymph # (Auto) [place] # (Auto) Eos # (Auto) Baso # (Auto) WBC Differential Diff Scan Differential Comment PT 17.8 H INR 1.8 APTT Fibrinogen 154 L Puncture Site Patient Temperature O2 Saturation ABG pH ABG pCO2 ABG pO2 ABG HCO3 ABG O2 Content ABG Base Excess ABG Methemoglobin Som Test Hemoglobin Carboxyhemoglobin O2 Delivery Device Liter Flow Critical Value Sodium Potassium Chloride Carbon Dioxide Anion Gap BUN Creatinine Estimated GFR POC Glucose Random Glucose Lactic Acid Calcium Prot Corrected Calcium Phosphorus Magnesium Iron TIBC % Saturation Total Bilirubin AST ALT Alkaline Phosphatase Ammonia Total Creatine Kinase Total Protein Albumin Lipase Urine Color Urine Clarity Urine pH Ur Specific [place] Urine Protein Urine Glucose (UA) Urine Ketones Urine Occult Blood Urine Nitrate Urine Bilirubin Urine Ictotest Urine Urobilinogen Ur Leukocyte Esterase Urine RBC Urine WBC Ur Squamous Epith Cells Urine Bacteria Hyaline Casts Urine Mucus Micro UA Comment Ur Microscopic Review Urine Culture Comments Urine Eosinophils None seen Ur Random Creatinine Ur Random Sodium Peritoneal RBC 20 H [place] Nuc Cells 205 H [place] Neutrophils 38 [place] Lymphocytes 23 Peritoneal Monocytes 34 [place] Mesothelial 3 Peritoneal Plasma Cell 1 Peritoneal Other Cells 1 Nasal Screen MRSA (PCR) Urine Opiates Screen Acetaminophen Ur Barbiturates Screen Ur Amphetamines Screen U Benzodiazepines Scrn Urine Cocaine Screen U Cannabinoids Screen Serum Alcohol Blood Type Antibody Screen MTS Gel Crossmatch Blood Bank Comment Bld Prod Order Comment 01/28/18 01/28/18 01/28/18 06:05 06:05 06:05 WBC RBC Hgb Hct MCV MCH MCHC RDW Plt Count MPV Prelim Diff (Auto) Neut % (Auto) Lymph % (Auto) [place] % (Auto) Eos % (Auto) Baso % (Auto) Neut # (Auto) Lymph # (Auto) [place] # (Auto) Eos # (Auto) Baso # (Auto) WBC Differential Diff Scan Differential Comment PT INR APTT Fibrinogen Puncture Site Patient Temperature O2 Saturation ABG pH ABG pCO2 ABG pO2 ABG HCO3 ABG O2 Content ABG Base Excess ABG Methemoglobin Som Test Hemoglobin Carboxyhemoglobin O2 Delivery Device Liter Flow Critical Value Sodium Potassium Chloride Carbon Dioxide Anion Gap BUN Creatinine Estimated GFR POC Glucose Random Glucose Lactic Acid Calcium Prot Corrected Calcium Phosphorus Magnesium Iron TIBC % Saturation Total Bilirubin AST ALT Alkaline Phosphatase Ammonia Total Creatine Kinase Total Protein Albumin Lipase Urine Color Olga Urine Clarity Clear Urine pH 6.0 Ur Specific [place] 1.011 Urine Protein Negative Urine Glucose (UA) Negative Urine Ketones Negative Urine Occult Blood Negative Urine Nitrate Negative Urine Bilirubin Moderate H Urine Ictotest Positive H Urine Urobilinogen 4 or greater Ur Leukocyte Esterase Negative Urine RBC 1 Urine WBC 1 Ur Squamous Epith Cells 1 Urine Bacteria Occasional H Hyaline Casts 1 Urine Mucus Few H Micro UA Comment Cath-culture ind Ur Microscopic Review Not Reportable Urine Culture Comments Cath-cult indicated Urine Eosinophils Ur Random Creatinine 40 Ur Random Sodium 41 Peritoneal RBC [place] Nuc Cells [place] Neutrophils [place] Lymphocytes Peritoneal Monocytes [place] Mesothelial Peritoneal Plasma Cell Peritoneal Other Cells Nasal Screen MRSA (PCR) Urine Opiates Screen Acetaminophen Ur Barbiturates Screen Ur Amphetamines Screen U Benzodiazepines Scrn Urine Cocaine Screen U Cannabinoids Screen Serum Alcohol Blood Type Antibody Screen [facility]TS Gel Crossmatch Blood Bank Comment Bld Prod Order Comment 01/28/18 01/28/18 01/28/18 06:05 06:20 06:20 WBC 13.8 H RBC 2.70 L Hgb 8.6 L Hct 24.2 L MCV 89.9 MCH 32.0 MCHC 35.6 RDW 18.8 H Plt Count 85 L MPV 8.2 Prelim Diff (Auto) Slide review pending Neut % (Auto) 80.9 H Lymph % (Auto) 9.0 [place] % (Auto) 9.6 H Eos % (Auto) 0.4 Baso % (Auto) 0.1 Neut # (Auto) 11.2 H Lymph # (Auto) 1.2 [place] # (Auto) 1.3 H Eos # (Auto) 0.1 Baso # (Auto) 0.0 WBC Differential . Diff Scan Auto diff confirmed Differential Comment . PT INR APTT Fibrinogen Puncture Site Patient Temperature O2 Saturation ABG pH ABG pCO2 ABG pO2 ABG HCO3 ABG O2 Content ABG Base Excess ABG Methemoglobin Som Test Hemoglobin Carboxyhemoglobin O2 Delivery Device Liter Flow Critical Value Sodium 144 Potassium 2.5 L* Chloride 104 Carbon Dioxide 29.6 Anion Gap 10 BUN 29 H Creatinine 1.63 H Estimated GFR 34 L POC Glucose Random Glucose 106 Lactic Acid Calcium 7.3 L* Prot Corrected Calcium 8.0 L Phosphorus 1.7 L Magnesium 2.0 Iron TIBC % Saturation Total Bilirubin 29.1 H AST 84 H ALT 34 Alkaline Phosphatase 134 H Ammonia Total Creatine Kinase Total Protein 5.8 L Albumin 2.4 L D Lipase Urine Color Urine Clarity Urine pH Ur Specific [place] Urine Protein Urine Glucose (UA) Urine Ketones Urine Occult Blood Urine Nitrate Urine Bilirubin Urine Ictotest Urine Urobilinogen Ur Leukocyte Esterase Urine RBC Urine WBC Ur Squamous Epith Cells Urine Bacteria Hyaline Casts Urine Mucus Micro UA Comment Ur Microscopic Review Urine Culture Comments Urine Eosinophils Ur Random Creatinine Ur Random Sodium Peritoneal RBC [place] Nuc Cells [place] Neutrophils [place] Lymphocytes Peritoneal Monocytes [place] Mesothelial Peritoneal Plasma Cell Peritoneal Other Cells Nasal Screen MRSA (PCR) Urine Opiates Screen Neg Acetaminophen Ur Barbiturates Screen Neg Ur Amphetamines Screen Neg U Benzodiazepines Scrn Neg Urine Cocaine Screen Pos H U Cannabinoids Screen Neg Serum Alcohol Blood Type Antibody Screen [facility] Blood [facility] Comment Bld Prod Order Comment 01/28/18 01/28/18 01/28/18 06:20 06:20 06:20 WBC RBC Hgb Hct MCV MCH MCHC RDW Plt Count MPV Prelim Diff (Auto) Neut % (Auto) Lymph % (Auto) [place] % (Auto) Eos % (Auto) Baso % (Auto) Neut # (Auto) Lymph # (Auto) [place] # (Auto) Eos # (Auto) Baso # (Auto) WBC Differential Diff Scan Differential Comment PT INR APTT Fibrinogen Puncture Site Patient Temperature O2 Saturation ABG pH ABG pCO2 ABG pO2 ABG HCO3 ABG O2 Content ABG Base Excess ABG Methemoglobin Som Test Hemoglobin Carboxyhemoglobin O2 Delivery Device Liter Flow Critical Value Sodium Potassium Chloride Carbon Dioxide Anion Gap BUN Creatinine Estimated GFR POC Glucose Random Glucose Lactic Acid 1.9 Calcium Prot Corrected Calcium Phosphorus Magnesium Iron 164 TIBC 182 L % Saturation 90.1 H Total Bilirubin AST ALT Alkaline Phosphatase Ammonia 180 H Total Creatine Kinase Total Protein Albumin Lipase Urine Color Urine Clarity Urine pH Ur Specific [place] Urine Protein Urine Glucose (UA) Urine Ketones Urine Occult Blood Urine Nitrate Urine Bilirubin Urine Ictotest Urine Urobilinogen Ur Leukocyte Esterase Urine RBC Urine WBC Ur Squamous Epith Cells Urine Bacteria Hyaline Casts Urine Mucus Micro UA Comment Ur Microscopic Review Urine Culture Comments Urine Eosinophils Ur Random Creatinine Ur Random Sodium Peritoneal RBC [place] Nuc Cells [place] Neutrophils [place] Lymphocytes Peritoneal Monocytes [place] Mesothelial Peritoneal Plasma Cell Peritoneal Other Cells Nasal Screen MRSA (PCR) Urine Opiates Screen Acetaminophen Ur Barbiturates Screen Ur Amphetamines Screen U Benzodiazepines Scrn Urine Cocaine Screen U Cannabinoids Screen Serum Alcohol Blood Type Antibody Screen [email or web address] Gel Crossmatch Blood Bank Comment Bld Prod Order Comment 01/28/18 09:50 WBC RBC Hgb 9.0 L Hct MCV MCH MCHC RDW Plt Count MPV Prelim Diff (Auto) Neut % (Auto) Lymph % (Auto) [place] % (Auto) Eos % (Auto) Baso % (Auto) Neut # (Auto) Lymph # (Auto) [place] # (Auto) Eos # (Auto) Baso # (Auto) WBC Differential Diff Scan Differential Comment PT INR APTT Fibrinogen Puncture Site Patient Temperature O2 Saturation ABG pH ABG pCO2 ABG pO2 ABG HCO3 ABG O2 Content ABG Base Excess ABG Methemoglobin Som Test Hemoglobin Carboxyhemoglobin O2 Delivery Device Liter Flow Critical Value Sodium Potassium Chloride Carbon Dioxide Anion Gap BUN Creatinine Estimated GFR POC Glucose Random Glucose Lactic Acid Calcium Prot Corrected Calcium Phosphorus Magnesium Iron TIBC % Saturation Total Bilirubin AST ALT Alkaline Phosphatase Ammonia Total Creatine Kinase Total Protein Albumin Lipase Urine Color Urine Clarity Urine pH Ur Specific [place] Urine Protein Urine Glucose (UA) Urine Ketones Urine Occult Blood Urine Nitrate Urine Bilirubin Urine Ictotest Urine Urobilinogen Ur Leukocyte Esterase Urine RBC Urine WBC Ur Squamous Epith Cells Urine Bacteria Hyaline Casts Urine Mucus Micro UA Comment Ur Microscopic Review Urine Culture Comments Urine Eosinophils Ur Random Creatinine Ur Random Sodium Peritoneal RBC [place] Nuc Cells [place] Neutrophils [place] Lymphocytes Peritoneal Monocytes [place] Mesothelial Peritoneal Plasma Cell Peritoneal Other Cells Nasal Screen MRSA (PCR) Urine Opiates Screen Acetaminophen Ur Barbiturates Screen Ur Amphetamines Screen U Benzodiazepines Scrn Urine Cocaine Screen U Cannabinoids Screen Serum Alcohol Blood Type Antibody Screen [facility] Gel Crossmatch Blood Bank Comment Bld Prod Order Comment - Imaging Impressions Abdomen Ultrasound 01/27/18 16:16 CONCLUSION: Moderate ascites. Chest X-Ray 01/27/18 16:16 CONCLUSION: Minimal focal patchiness is noted within the left lung base consistent with possible developing infiltrate. Clinical correlation is recommended. Head CT 01/27/18 16:16 CONCLUSION: No acute intracranial abnormality demonstrated. . Chest X-Ray 01/27/18 22:22 CONCLUSION: 1. Orogastric tube and right IJ line placement as above. 2. Mild parenchymal consolidation of the left base not significantly changed. <Antonette Aldana - Last Filed: 01/28/18 11:45> Assessment and Plan (1) Acute GI bleeding Status: Resolved Code(s): K92.2 - Gastrointestinal hemorrhage, unspecified (2) Anemia Status: Chronic Code(s): D64.9 - Anemia, unspecified (3) Encephalopathy Status: Acute Code(s): G93.40 - Encephalopathy, unspecified (4) Portal hypertensive gastropathy Status: Acute Code(s): K76.6 - Portal hypertension; K31.89 - Other diseases of stomach and duodenum - Plan Ms. Murray is a 47-year-old female with a significant past medical history for alcoholic dependence, cirrhosis, chronic hepatitis C, gastritis and portal hypertensive gastropathy. Patient underwent banding and ligation of esophageal varices x2 in 2016. Patient also has history of cocaine abuse. This patient presented to [facility] on 01/27/2018 with altered mental status and jaundice. Melena stools were noted on arrival. No reported vomiting. This patient has a moderate to large amount of abdominal ascites due to her history of cirrhosis. Diagnostic paracentesis attempted this a.m. per patient's nurse, small amount of fluid obtained for cytology. Most recent hemoglobin 9.0. As patient has received 2 units of packed RBCs and 4 units of fresh frozen plasma. INR 1.8 platelet count 85 total bilirubin 29.1 AST 84 ALT 34 alk phos 134.TIBC of 182 and iron saturation of 90.1. Of note patient's ammonia level is 180. patient currently receiving lactulose via NG every 6 hours . Last EGD 01/02/2018 showed portal hypertensive gastropathy and erythematous gastritis no varices were noted at that time. Upon exam of patient during consult, a large amount of black tarry stools are noted with scant amount of dark emesis and NG tube. Patient currently on pantoprazole drip and octreotide drip has been ordered. Will obtain consent for EGD as GI has been consulted to evaluate GI bleeding as well as cirrhosis. Plan: -Maintain n.p.o. -NG tube in place -Monitor for bleeding -Continue to monitor labs -Sandostatin drip ordered -Pantoprazole drip -Continue lactulose 30 mL's via NG every 6 hours for hepatic encephalopathy -Xifaxan -Obtain consent for EGD -Supportive care -Further recommendations to follow This patient has been seen by myself and Dr. Aladna and this note is written on his behalf - Attending Attestation Dr. Aldana <Leanne Torres - Last Filed: 01/28/18 10:34> (1) Acute GI bleeding Status: Resolved Code(s): K92.2 - Gastrointestinal hemorrhage, unspecified (2) Anemia Status: Chronic Code(s): D64.9 - Anemia, unspecified (3) Encephalopathy Status: Acute Code(s): G93.40 - Encephalopathy, unspecified (4) Portal hypertensive gastropathy Status: Acute Code(s): K76.6 - Portal hypertension; K31.89 - Other diseases of stomach and duodenum - Plan Seen and examined with [employer], melena in NG. Recent egd with portal gastropathy likely source of bleeding. No varices on recent egds. Pt encephalopathic and semi comatose. Discriminant score 80 inspite of being on steroids. Transfuse blood products as ordered. Possible repeat egd. Pt continues to drink and use cocaine. Not a candidate for TIPs/ transplant. Over all poor prognosis, discussed with Dr Cisneros. Possible hospice referral. Thank you The exam, history, and the medical decision-making described in the above note were completed with the assistance of the mid-level provider. I reviewed and agree with the findings presented. I attest that I had a [id number] encounter with the patient on the same day, and personally performed and documented my assessment and findings in the medical record. <Antonette Aldana - Last Filed: 01/28/18 11:45>
[2018-01-28] MEDS ORDERED: Octreotide Inj 50 MCG/ML Vial IV.PUSH ONE (11:00)
--- NOTE | 2018-01-28 13:14 | ECG ---
Date Performed: 01/27/2018 Time Performed: 19:00:48 PTAGE: 47 years EKG: SINUS TACHYCARDIA ST DEVIATION AND MODERATE T-WAVE ABNORMALITY, CONSIDER ANTEROLATERAL ISCH EMIA ST DEVIATION AND MODERATE T-WAVE ABNORMALITY, CONSIDER INFERIOR ISCHEMIA ABNORMAL ECG PREVIOUS TRACING : 11/03/2016 14.11 DOCTOR: Dino Ashford Interpretating Date/Time 01/28/2018 13:10:25
[2018-01-28] MEDS: Multivitamin/Minerals Therapeutic Tablet NG/OG SCH (13:47)
[2018-01-28] MEDS: predniSONE 20 MG Tablet NG/OG SCH (13:47)
[2018-01-28] MEDS: Folic Acid 1 MG Tablet NG/OG SCH (13:48)
[2018-01-28] MEDS: rifAXIMin 550 MG Tablet NG/OG SCH ×2 (13:48→21:12)
[2018-01-28] MEDS: Octreotide Inj 500 MCG in Sodium Chlor 0.9% Inj 500 ML IV.CONT SCH (13:49)
[2018-01-28] MEDS ORDERED: Phytonadione Inj 10 MG in Sodium Chlor 0.9% Inj 50 ML IV.SIG ONE (21:00)
[2018-01-29] MEDS: Piperacil/Tazo 3.375 GM Premix 50 ML IV.SIG SCH ×4 (04:50→18:22)
[2018-01-29] MEDS: Pantoprazole Inj 80 MG in Sodium Chlor 0.9% Inj 100 ML IV.CONT SCH ×2 (04:51→19:49)
[2018-01-29] MEDS: Chlorhexidine Gluconate 2% 1 Pack (2 Cloths) TOPICAL SCH (05:23)
--- NOTE | 2018-01-29 07:59 | P.PNCC ---
Subjective Subjective Remarks/Hospital Course: Hospital Course: History was obtained through discussion with ED physician and review of EMR. Patient is not able to provide history. I attempted to contact her son, Kenneth العراقي, and there was no answer. I also attempted to contact her ex-, Saeid Murray, and there was no answer. According to [facility] her ex- was recently transported for cardiac arrest. It is unknown whether he . 47-year-old female with past medical history of alcohol dependence, cirrhosis, chronic hepatitis C, gastritis and portal hypertensive gastropathy, prior esophageal varices band ligation x2 in 2016, cocaine abuse. She presented to [facility] emergency department via [facility] with altered mental status and jaundice. She had a melena BM. No vomiting. Her Hgb is 7.6. Prior was 9.1 on 01/05. Her INR is 2.3. She is receiving 2 units PRBC per ED physician and has been given octreotide 100 mcg IV and started on protonix drip. I am ordering vitamin K 10 mg and 2 units FFP. Temp is 96.9, sinus tach in 120s, BP 114/62. She has leukocytosis 20k and has been treated empirically for sepsis with zosyn and vancomycin. She has moderate ascites. She is at risk for SBP, will do diagnostic paracentesis after coagulopathy addressed. She also is lethargic with ammonia level 137. She has received lactulose enema. CT brain is pending. Creatinine is 2.11 with most recent range being about 1.1- 1.42. Last EGD 01/02/18 showed portal hypertensive gastropathy and erythematous gastritis. There were no varices at that time. In she had gastric ulcers that did not require intervention. She has had esophageal varices with banding back in 2016. Subjective: 01/28: no improvements. continues with active melena. have discussed the case with Dr. Aldana at length: last 2 scopes recently have been portal gastropathy without any interveneable lesions. She would not be a candidate for TIPS due to her severe hepatic encephalopathy. she has not been compliant with optimal medical therapy for portal hypertension, and continues to use cocaine. She is end-stage, and Dr. Aldana and I agree that Hospice is most appropriate. I have spoken with a personal friend, Crow Steward ) who states that the patient's ex- Saeid Murray who usually acts as her medical decision maker last week (Crow has Saeid's phone which is his contact number). Ms. Murray has 3 adult sons: Kenneth Small ([phone] ), Stanislaw, and Mateo. I have spoken with Kenneth: Stanislaw and Mateo are apparently estranged from the patient, and it may be difficult to contact them or have them participate in the medical decision-making of the patient. Kenneth states that his mother told him she "never wanted to be hooked up to machines." I explained that this was likely a terminal and fatal GI bleed, and with her liver failure, even if she did not have a GI bleed, her life expectancy would be less than 3 months based on her current MELD score. He agrees with our assessment that Hospice is appropriate. In addition to this, although we do not have any scanned Advanced Directives available to me from prior admissions, I have three separate nursing documentation from prior admissions, all stating the patient wished to be DNR (11/04/15- Samia Dumas, 04/08- Joan Gillespie, 02/21/14- Leah Ac). I am currently awaiting to hear from Stanislaw or Mateo. The patient remains encephalopathic and unable to participate in goals of care discussions, and continues to have active melena. 01/29: remains encephalopathic although more awake today. hgb stable for now. no other changes. ammonia downtrending, but patient confused. family still deciding what ultimate disposition should be and how aggressive they want to be. patient oriented x 2 this morning. does state that she "just wants to be comfortable." when asked about code status if she gets sicker, she states "just let me ." and when I asked if she knows what will happen if we don't do CPR or put her on a breathing machine if she gets sicker, she states "I will be ." I asked her about hospice and comfort measures and she states "I want to be comfortable." but she also states "ask kenneth, my son." She did tell me today that if she cannot make medical decisions for herself, she wants Kenneth her oldest son to make medical decisions for her. Objective Vital Signs / I&O: Vital Signs 10/06/18 08:00 01/28/18 08:15 01/28/18 08:30 Pulse Rate 99 H 100 H 99 H Respiratory Rate 13 13 12 Blood Pressure 117/65 126/66 113/69 Pulse Oximetry 98 100 99 01/28/18 08:45 01/28/18 09:00 01/28/18 09:15 Pulse Rate 99 H 99 H 98 H Respiratory Rate 14 13 13 Blood Pressure 109/63 120/67 113/66 Pulse Oximetry 99 100 100 01/28/18 09:30 01/28/18 09:45 01/28/18 10:00 Pulse Rate 105 H 101 H 110 H Respiratory Rate 19 14 23 Blood Pressure 120/75 133/81 130/84 Pulse Oximetry 99 100 99 01/28/18 10:15 01/28/18 10:30 01/28/18 10:45 Pulse Rate 108 H 108 H 117 H Respiratory Rate 18 15 18 Blood Pressure 126/81 127/77 144/73 H Pulse Oximetry 99 99 100 01/28/18 11:00 01/28/18 11:15 01/28/18 11:30 Pulse Rate 110 H 118 H 115 H Respiratory Rate 14 19 16 Blood Pressure 131/74 134/72 139/69 Pulse Oximetry 99 99 99 01/28/18 11:45 01/28/18 12:00 01/28/18 12:15 Pulse Rate 114 H 110 H 111 H Respiratory Rate 17 14 14 Blood Pressure 128/63 109/61 Pulse Oximetry 100 100 100 01/28/18 12:30 01/28/18 12:45 01/28/18 13:00 Pulse Rate 108 H 108 H 111 H Respiratory Rate 14 13 14 Blood Pressure 114/61 127/65 123/62 Pulse Oximetry 100 100 100 01/28/18 13:15 01/28/18 13:30 01/28/18 13:45 Pulse Rate 111 H 109 H 109 H Respiratory Rate 13 13 15 Blood Pressure 118/62 107/61 108/60 Pulse Oximetry 100 100 100 01/28/18 14:00 01/28/18 14:15 01/28/18 14:30 Pulse Rate 109 H 121 H 115 H Respiratory Rate 16 20 17 Blood Pressure 146/79 H 135/68 131/73 Pulse Oximetry 100 98 99 01/28/18 14:45 01/28/18 15:00 01/28/18 15:15 Pulse Rate 117 H 119 H 118 H Respiratory Rate 15 15 16 Blood Pressure 133/69 135/68 132/69 Pulse Oximetry 98 98 97 01/28/18 15:30 01/28/18 15:45 01/28/18 16:00 Pulse Rate 120 H 118 H 116 H Respiratory Rate 15 15 20 Blood Pressure 130/72 128/72 130/70 Pulse Oximetry 96 97 96 01/28/18 16:15 01/28/18 16:30 01/28/18 16:45 Pulse Rate 112 H 109 H 109 H Respiratory Rate 16 15 16 Blood Pressure 128/66 122/67 124/66 Pulse Oximetry 93 L 93 L 94 L 01/28/18 17:00 01/28/18 17:15 01/28/18 17:30 Pulse Rate 111 H 108 H 109 H Respiratory Rate 16 16 17 Blood Pressure 111/66 127/70 129/73 Pulse Oximetry 93 L 94 L 94 L 01/28/18 17:45 01/28/18 18:00 01/28/18 18:15 Pulse Rate 109 H 111 H 113 H Respiratory Rate 16 17 20 Blood Pressure 113/62 135/78 139/79 Pulse Oximetry 93 L 01/28/18 18:30 01/28/18 20:00 01/28/18 22:15 Pulse Rate 110 H 110 H 110 H Respiratory Rate 16 18 Blood Pressure 126/77 139/77 Pulse Oximetry 99 01/28/18 22:30 01/28/18 22:45 01/28/18 23:00 Pulse Rate 107 H 106 H 106 H Respiratory Rate 32 H 20 21 Blood Pressure 146/74 H 141/77 H 139/73 Pulse Oximetry 99 99 98 01/28/18 23:15 01/28/18 23:30 01/28/18 23:45 Pulse Rate 110 H 109 H 107 H Respiratory Rate 27 H 34 H 25 H Blood Pressure 131/78 138/71 137/73 Pulse Oximetry 100 97 100 01/29/18 00:00 01/29/18 00:15 01/29/18 00:30 Pulse Rate 112 H 109 H 105 H Respiratory Rate 30 H 21 23 Blood Pressure 141/75 H 134/75 151/75 H Pulse Oximetry 97 100 100 01/29/18 00:45 01/29/18 01:00 01/29/18 01:16 Pulse Rate 107 H 106 H 106 H Respiratory Rate 33 H 30 H 28 H Blood Pressure 151/73 H 143/66 H 139/85 Pulse Oximetry 98 97 100 01/29/18 01:30 01/29/18 01:45 01/29/18 02:00 Pulse Rate 102 H 106 H 106 H Respiratory Rate 32 H 20 18 Blood Pressure 136/70 151/72 H 145/70 H Pulse Oximetry 98 100 100 01/29/18 02:15 01/29/18 02:30 01/29/18 02:46 Pulse Rate 107 H 107 H 108 H Respiratory Rate 21 21 24 Blood Pressure 128/60 162/76 H 136/74 Pulse Oximetry 100 100 100 01/29/18 03:00 01/29/18 03:15 01/29/18 03:30 Pulse Rate 104 H 106 H 106 H Respiratory Rate 18 20 28 H Blood Pressure 133/68 141/68 H 141/69 H Pulse Oximetry 100 100 55 L 01/29/18 03:45 01/29/18 04:00 01/29/18 04:15 Pulse Rate 106 H 105 H 105 H Respiratory Rate 20 20 21 Blood Pressure 150/83 H 149/90 H 148/82 H Pulse Oximetry 100 100 100 01/29/18 04:30 01/29/18 04:45 01/29/18 05:00 Pulse Rate 105 H 105 H 105 H Respiratory Rate 18 18 21 Blood Pressure 138/79 133/88 154/72 H Pulse Oximetry 100 86 L 86 L 01/29/18 05:15 01/29/18 05:30 01/29/18 05:45 Pulse Rate 105 H 105 H 104 H Respiratory Rate 19 21 23 Blood Pressure 147/72 H 149/80 H 140/73 Pulse Oximetry 99 97 01/29/18 06:00 01/29/18 06:15 01/29/18 07:03 Pulse Rate 104 H 104 H Respiratory Rate 22 17 Blood Pressure 138/79 143/79 H Pulse Oximetry 98 96 99 Intake & Output 01/28/18 01/29/18 01/29/18 18:59 06:59 18:59 Intake Total 300 / 300 511 / 511 Output Total 450 / 450 Balance -150 / -150 511 / 511 Weight 63.1 kg Intake: IV 300 / 300 511 / 511 Protonix Inj 80 MG In NS Inj 100 / 100 100 / 100 100 ML @ 10 mls/hr IV.CONT CONT MARGARETTE Rx#:[id number] Vitamin K Inj 10 MG In NS Inj 51 / 51 50 ML @ 102 mls/hr IV.SIG ONCE ONE Rx#:[id number] Zosyn 3.375 GM Premix 50 ML @ 100 / 100 100 / 100 100 mls/hr IV.SIG Q6HR MARGARETTE Rx#: [id number] KCl 40 mEq Premix Inj 40 meq In 100 / 100 100 ml @ 25 mls/hr IV.SIG UNSCH PRN Rx#:[id number] Potassium Phosphate Inj 30 MMOL 260 / 260 In NS Inj 250 ML @ 42 mls/hr IV.SIG UNSCH PRN Rx#:[id number] Output: Urine 450 / 450 Other: # Voids 2 Date of Last Bowel Movement 01/28/18 01/29/18 # Bowel Movements 3 3 Result Diagrams: 01/29/18 09:05 01/28/18 06:20 Objective Remarks: GENERAL: Chronically ill-appearing under-nourished jaundiced female who is laying in bed. SKIN: Warm and dry, jaundiced. There are multiple sub-centimeter skin wounds on arms and legs consistent with scratching/picking HEAD: Atraumatic. Normocephalic. EYES: Pupils equal and round, reactive bilaterally. +icterus. ENT: No nasal bleeding or discharge. Mucous membranes pink NECK: Trachea midline. No JVD. CARDIOVASCULAR: Tachycardic, regular, sinus tach on the monitor. No murmurs rubs or gallops. RESPIRATORY: equal chest rise. nc o2. GASTROINTESTINAL: Abdomen soft, distended with fluid wave, no apparent tenderness/rebound/guarding. +melena in the bed. MUSCULOSKELETAL: Extremities without clubbing, cyanosis, or edema. No obvious deformities. NEUROLOGICAL: a+ox2. follows some commands. at times confused. Assessment and Plan - Assessment and Plan Plan: Assessment: 47yF with acute gastrointestinal bleeding likely secondary to coagulopathy from end-stage liver disease. Unlikely to improve. I agree with Dr. Aldana that this is terminal and hospice is appropriate. All of the available data that I have access to, including prior medical records, as well as my discussions with Mr. Steward and her son Kenneth are consistent with the patient wishing to be DNR code status and without aggressive goals of care. In congruence with this, we will make the patient DNR. We will give some time for her other two sons to be contacted to see if they wish to participate in the medical decision-making process, however due to the acuity of the patient and her critical illness, we cannot wait days to see if they are reachable. If we are unable to reach them after thorough efforts have been made, Kenneth has agreed with our medical opinion that hospice care is most appropriate, and all of the available evidence presented to me from family and close friend discussions as well as past medical records would suggest to me the patient's wishes are most consistent with Hospice care. For now she remains critically ill with life-threatening GI bleeding in the setting of terminal end-stage liver disease. NEURO: Acute hepatic encephalopathy- persistent Alcohol dependence History of polysubstance abuse including cocaine EtOH and Tylenol levels normal on admission. CT brain 01/27 negative Ammonia is downtrending. Lactulose 30 mL's 4 times daily. Rifaximin 550 mg twice daily. Thiamine/multivitamin/folic acid per OG. RESP: Tobacco abuse Nasal cannula wean as tolerated CV: Monitor vitals GI: End-stage liver disease Cirrhosis, Admission MELD 35 (predicted 3 month survival 47%) Moderate ascites with most recent paracentesis 01/02 Chronic hepatitis C Alcoholic hepatitis NG tube inserted for meds (recent EGD did not show varices) Has been treated for alcoholic hepatitis per GI. discriminant function has been elevated, currently greater than 80. Will continue prednisone as cannot give pentoxifylline down the tube and she is unable to take p.o. currently. Protonix drip, serial Hgb. GI consulted for bleeding. Serial hgb and address coagulopathy as per below. Diagnostic paracentesis. Hold lasix/spironolactone at this time. Inderal when stabilized. Chronic moderate protein energy malnutrition Enteral tube feeds when diet advancement appropriate from GI standpoint. FEN/RENAL: Acute kidney injury Hypokalemia Hepatorenal vs pre-renal dehydration vs ATN secondary to sepsis/acute blood loss Feurea, cpk, urine eos. Volume expansion with PRBC/FFP transfusions. Monitor I/O. Bladder scanning and I/O cath prn. KCL 40 MEQ IV, f/u potassium ID: Leukocytosis Sepsis Healthcare associated pneumonia versus aspiration Chest x-ray with left lower lobe infiltrate. Recent hospitalization so she is at risk for healthcare associated organisms. Receiving Zosyn and vancomycin dose per ED. Will continue Zosyn 3.375 g IV every 6 hours for pseudomonal coverage dosed based on calculated creatinine clearance of 23. We will send blood culture, UA and urine culture. She is at risk for SBP. Will perform diagnostic paracentesis. HEME: Acute blood loss overlying chronic anemia Coagulopathy secondary to end-stage liver disease Thrombocytopenia s/p vitamin K 10 mg IV now and 10 mg IV daily for a total of 3 doses for nutritional repletion. FFP 2 units for INR 2.3, down to 1.8. s/p 2 additional units ffp. Transfuse platelets as needed for count less than 50 with active bleeding. Serial hemoglobin every 6 hours and transfuse as indicated for hemoglobin less than 7 or hemodynamic instability ENDO: Euglycemic PROPH: SCDs for DVT prophylaxis. Avoid pharmacologic DVT prophylaxis at this time as she is coagulopathic and procedure is anticipated. Protonix drip as per above. ACCESS: Right IJ central venous line placed 01/27 #3. Patient is critically ill with ESLD, hepatic encephalopathy and multiorgan dysfunction. She is high at high risk for further decompensation and .
[2018-01-29 09:38] LABS: Baso % (Auto) 0.1 % (0.0-2.0); Eos % (Auto) 0.3 % (0.0-4.0); Hematocrit 26.5 % (35.0-46.0); Hemoglobin 9.2 gm/dL (11.6-15.3); Lymph # (Auto) 1.1 th/mm3 (1.0-4.8); Lymph % (Auto) 9.9 % (9.0-44.0); Mean Corpuscular HGB Conc 34.8 % (32.0-36.0); Mean Corpuscular Volume 91.8 fL (80.0-100.0); Mean Platelet Volume 8.1 fL (7.0-11.0); Mono # (Auto) 1.2 th/mm3 (0.0-0.9); Mono % (Auto) 10.8 % (0.0-8.0); Neut # (Auto) 8.7 th/mm3 (1.8-7.7); Neut % (Auto) 78.9 % (16.0-70.0); Platelet Count 96 th/mm3 (150-450); Red Blood Count 2.88 mil/mm3 (4.00-5.30); Red Cell Distribution Width 19.6 % (11.6-17.2)
[2018-01-29 10:14] LABS: Alanine Aminotransferase 38 U/L (10-53); Albumin 2.3 g/dL (3.4-5.0); Alkaline Phosphatase 156 U/L (45-117); Anion Gap 10 meq/L (5-15); Aspartate Aminotransferase 95 U/L (15-37); Blood Urea Nitrogen 25 mg/dL (7-18); Calcium 8.4 mg/dL (8.5-10.1); Carbon Dioxide 26.8 meq/L (21.0-32.0); Chloride 111 meq/L (98-107); Glomerular Filtration Rate 43 mL/min (>89); Glucose,Random 97 mg/dL (74-106); Total Protein 6.3 g/dL (6.4-8.2)
[2018-01-29 10:18] LABS: Sodium 148 meq/L (136-145)
[2018-01-29 10:20] LABS: Potassium 2.6 meq/L (3.5-5.1)
[2018-01-29 10:29] LABS: Burr Cells 1+; Ovalocytes 1+; Platelet Morphology Normal (Normal)
[2018-01-29 10:30] LABS: Toxic Granulation 1+
[2018-01-29] MEDS: Octreotide Inj 500 MCG in Sodium Chlor 0.9% Inj 500 ML IV.CONT SCH (11:22)
[2018-01-29] MEDS: Multivitamin/Minerals Therapeutic Tablet NG/OG SCH (11:23)
[2018-01-29] MEDS: rifAXIMin 550 MG Tablet NG/OG SCH ×2 (11:23→21:06)
[2018-01-29] MEDS: predniSONE 20 MG Tablet NG/OG SCH (11:23)
[2018-01-29] MEDS: Folic Acid 1 MG Tablet NG/OG SCH (11:23)
[2018-01-29] MEDS: Potassium Chlor 40 mEq Premix 40 MEQ/100 ML PIGGYBACK IV.SIG PRN ×2 (13:41→18:21)
--- NOTE | 2018-01-29 14:06 | P.PNGI ---
Subjective Interval history: Patient remains encephalopathic, hemoglobin stable at this time, remains confused with ammonia trending downwards. <Leanne Torres - Last Filed: 01/29/18 13:56> Interval history: Seen and examined with [employer], no active bleeding. ESLD. Continues with polysubstance abuse. GI will sign off. Thank you <Antonette Aldana - Last Filed: 01/30/18 10:22> Physical Exam Vital signs: Vital Signs 01/28/18 14:00 01/28/18 14:15 01/28/18 14:30 Pulse Rate 109 H 121 H 115 H Respiratory Rate 16 20 17 Blood Pressure 146/79 H 135/68 131/73 Pulse Oximetry 100 98 99 01/28/18 14:45 01/28/18 15:00 01/28/18 15:15 Pulse Rate 117 H 119 H 118 H Respiratory Rate 15 15 16 Blood Pressure 133/69 135/68 132/69 Pulse Oximetry 98 98 97 01/28/18 15:30 01/28/18 15:45 01/28/18 16:00 Pulse Rate 120 H 118 H 116 H Respiratory Rate 15 15 20 Blood Pressure 130/72 128/72 130/70 Pulse Oximetry 96 97 96 01/28/18 16:15 01/28/18 16:30 01/28/18 16:45 Pulse Rate 112 H 109 H 109 H Respiratory Rate 16 15 16 Blood Pressure 128/66 122/67 124/66 Pulse Oximetry 93 L 93 L 94 L 01/28/18 17:00 01/28/18 17:15 01/28/18 17:30 Pulse Rate 111 H 108 H 109 H Respiratory Rate 16 16 17 Blood Pressure 111/66 127/70 129/73 Pulse Oximetry 93 L 94 L 94 L 01/28/18 17:45 01/28/18 18:00 01/28/18 18:15 Pulse Rate 109 H 111 H 113 H Respiratory Rate 16 17 20 Blood Pressure 113/62 135/78 139/79 Pulse Oximetry 93 L 01/28/18 18:30 01/28/18 20:00 01/28/18 22:15 Pulse Rate 110 H 110 H 110 H Respiratory Rate 16 18 Blood Pressure 126/77 139/77 Pulse Oximetry 99 01/28/18 22:30 01/28/18 22:45 01/28/18 23:00 Pulse Rate 107 H 106 H 106 H Respiratory Rate 32 H 20 21 Blood Pressure 146/74 H 141/77 H 139/73 Pulse Oximetry 99 99 98 01/28/18 23:15 01/28/18 23:30 01/28/18 23:45 Pulse Rate 110 H 109 H 107 H Respiratory Rate 27 H 34 H 25 H Blood Pressure 131/78 138/71 137/73 Pulse Oximetry 100 97 100 01/29/18 00:00 01/29/18 00:15 01/29/18 00:30 Pulse Rate 112 H 109 H 105 H Respiratory Rate 30 H 21 23 Blood Pressure 141/75 H 134/75 151/75 H Pulse Oximetry 97 100 100 01/29/18 00:45 01/29/18 01:00 01/29/18 01:16 Pulse Rate 107 H 106 H 106 H Respiratory Rate 33 H 30 H 28 H Blood Pressure 151/73 H 143/66 H 139/85 Pulse Oximetry 98 97 100 01/29/18 01:30 01/29/18 01:45 01/29/18 02:00 Pulse Rate 102 H 106 H 106 H Respiratory Rate 32 H 20 18 Blood Pressure 136/70 151/72 H 145/70 H Pulse Oximetry 98 100 100 01/29/18 02:15 01/29/18 02:30 01/29/18 02:46 Pulse Rate 107 H 107 H 108 H Respiratory Rate 21 21 24 Blood Pressure 128/60 162/76 H 136/74 Pulse Oximetry 100 100 100 01/29/18 03:00 01/29/18 03:15 01/29/18 03:30 Pulse Rate 104 H 106 H 106 H Respiratory Rate 18 20 28 H Blood Pressure 133/68 141/68 H 141/69 H Pulse Oximetry 100 100 55 L 01/29/18 03:45 01/29/18 04:00 01/29/18 04:15 Pulse Rate 106 H 105 H 105 H Respiratory Rate 20 20 21 Blood Pressure 150/83 H 149/90 H 148/82 H Pulse Oximetry 100 100 100 01/29/18 04:30 01/29/18 04:45 01/29/18 05:00 Pulse Rate 105 H 105 H 105 H Respiratory Rate 18 18 21 Blood Pressure 138/79 133/88 154/72 H Pulse Oximetry 100 86 L 86 L 01/29/18 05:15 01/29/18 05:30 01/29/18 05:45 Pulse Rate 105 H 105 H 104 H Respiratory Rate 19 21 23 Blood Pressure 147/72 H 149/80 H 140/73 Pulse Oximetry 99 97 01/29/18 06:00 01/29/18 06:15 01/29/18 07:03 Pulse Rate 104 H 104 H Respiratory Rate 22 17 Blood Pressure 138/79 143/79 H Pulse Oximetry 98 96 99 Intake & Output 01/28/18 01/29/18 01/29/18 18:59 06:59 18:59 Intake Total 300 / 300 511 / 511 550 / 550 Output Total 450 / 450 Balance -150 / -150 511 / 511 550 / 550 Weight 63.1 kg Intake: IV 300 / 300 511 / 511 550 / 550 SandoSTATIN Inj 500 MCG In NS 500 / 500 Inj 500 ML @ 25 MCG/HR 25.02 mls/hr IV.CONT .Q20H1M MARGARETTE Rx#: [id number] Protonix Inj 80 MG In NS Inj 100 / 100 100 / 100 100 ML @ 10 mls/hr IV.CONT CONT MARGARETTE Rx#:[id number] Vitamin K Inj 10 MG In NS Inj 51 / 51 50 ML @ 102 mls/hr IV.SIG ONCE ONE Rx#:[id number] Zosyn 3.375 GM Premix 50 ML @ 100 / 100 100 / 100 50 / 50 100 mls/hr IV.SIG Q6HR MARGARETTE Rx#: [id number] KCl 40 mEq Premix Inj 40 meq In 100 / 100 100 ml @ 25 mls/hr IV.SIG UNSCH PRN Rx#:[id number] Potassium Phosphate Inj 30 MMOL 260 / 260 In NS Inj 250 ML @ 42 mls/hr IV.SIG UNSCH PRN Rx#:[id number] Output: Urine 450 / 450 Other: # Voids 2 Date of Last Bowel Movement 01/28/18 01/29/18 # Bowel Movements 3 3 - Constitutional chronically ill appearing, agitated - Routine HEENT Exam Head: Present: normocephalic Eye: Present: conjunctival icterus - Routine Respiratory Exam Present: CTA bilaterally. Absent: accessory muscle use - Routine Cardiovascular Exam Present: RRR - Routine Abdominal Exam Present: soft, normoactive bowel sounds, distended. Absent: guarding - Routine Extremities Exam Present: full ROM, pulses intact. Absent: cyanosis, edema - Routine Skin Exam Present: dry, warm, jaundice - Routine Neurological Exam awake , unable to follow commands, confused - Detailed Neurological Exam: Coma Scale Eye Opening: Spontaneous Verbal Response: Confused - Urinary Catheter Management Straight Cath placed during this visit: yes, but has since been removed by the nurse Reason for continuing: Not indwelling catheter Insertion date: 01/28/18 Insertion time: 06:05 Removal date: 01/28/18 Removal time: 06:10 <Leanne Torres - Last Filed: 01/29/18 13:56> Vital signs: Vital Signs 01/29/18 11:30 01/29/18 11:45 01/29/18 12:00 Temperature Pulse Rate 107 H 105 H 107 H Respiratory Rate 23 26 H 19 Blood Pressure 162/92 H 173/87 H 161/78 H Pulse Oximetry 01/29/18 12:16 01/29/18 12:31 01/29/18 12:46 Temperature Pulse Rate 109 H 108 H 105 H Respiratory Rate 29 H 27 H 17 Blood Pressure 163/72 H 144/65 H 140/65 Pulse Oximetry 01/29/18 13:00 01/29/18 13:15 01/29/18 13:31 Temperature Pulse Rate 105 H 106 H 108 H Respiratory Rate 23 25 H 39 H Blood Pressure 158/73 H 137/73 123/69 Pulse Oximetry 01/29/18 13:45 01/29/18 14:00 01/29/18 14:16 Temperature Pulse Rate 105 H 105 H 105 H Respiratory Rate 19 22 19 Blood Pressure 129/73 132/83 143/76 H Pulse Oximetry 01/29/18 14:30 01/29/18 14:45 01/29/18 15:00 Temperature Pulse Rate 103 H 105 H 105 H Respiratory Rate 19 23 20 Blood Pressure 138/66 144/82 H Pulse Oximetry 01/29/18 15:01 01/29/18 15:16 01/29/18 15:31 Temperature Pulse Rate 105 H 106 H 106 H Respiratory Rate 22 21 20 Blood Pressure 126/79 144/78 H 150/77 H Pulse Oximetry 01/29/18 15:45 01/29/18 16:00 01/29/18 16:01 Temperature Pulse Rate 108 H 105 H 106 H Respiratory Rate 21 16 29 H Blood Pressure 142/67 H 146/86 H Pulse Oximetry 01/29/18 16:15 01/29/18 16:30 01/29/18 16:46 Temperature Pulse Rate 105 H 108 H 106 H Respiratory Rate 18 21 20 Blood Pressure 150/78 H 157/90 H 154/87 H Pulse Oximetry 01/29/18 17:00 01/29/18 17:15 01/29/18 17:30 Temperature Pulse Rate 109 H 112 H 109 H Respiratory Rate 16 20 16 Blood Pressure 155/85 H 158/77 H 152/69 H Pulse Oximetry 01/29/18 17:45 01/29/18 18:00 01/29/18 18:15 Temperature Pulse Rate 107 H 108 H 108 H Respiratory Rate 22 21 27 H Blood Pressure 145/80 H 135/82 140/70 Pulse Oximetry 01/29/18 18:30 01/29/18 18:45 01/29/18 19:00 Temperature Pulse Rate 108 H 108 H 109 H Respiratory Rate 18 21 29 H Blood Pressure 134/70 144/83 H Pulse Oximetry 01/29/18 19:01 01/29/18 19:15 01/29/18 19:30 Temperature Pulse Rate 109 H 113 H 109 H Respiratory Rate 31 H 31 H 29 H Blood Pressure 154/67 H 148/83 H 148/78 H Pulse Oximetry 01/29/18 19:45 01/29/18 20:00 01/29/18 20:15 Temperature 98.3 F Pulse Rate 108 H 110 H 108 H Respiratory Rate 34 H 27 H 19 Blood Pressure 135/63 139/77 137/65 Pulse Oximetry 99 01/29/18 20:30 01/29/18 20:45 01/29/18 21:00 Temperature Pulse Rate 109 H 111 H 111 H Respiratory Rate 17 21 23 Blood Pressure 136/71 128/77 131/75 Pulse Oximetry 01/29/18 21:15 01/29/18 21:39 01/29/18 21:45 Temperature Pulse Rate 115 H 109 H 109 H Respiratory Rate 22 26 H 34 H Blood Pressure 132/76 170/70 H 134/59 L Pulse Oximetry 97 95 97 01/29/18 22:00 01/29/18 22:15 01/29/18 22:30 Temperature Pulse Rate 109 H 109 H 109 H Respiratory Rate 21 21 22 Blood Pressure 147/76 H 154/76 H 152/78 H Pulse Oximetry 98 97 97 01/29/18 22:45 01/29/18 23:00 01/30/18 00:00 Temperature 98.4 F Pulse Rate 111 H 112 H 111 H Respiratory Rate 21 23 17 Blood Pressure 148/72 H 138/80 Pulse Oximetry 97 97 98 01/30/18 00:27 01/30/18 00:31 01/30/18 01:00 Temperature Pulse Rate 113 H 111 H 110 H Respiratory Rate 33 H 24 19 Blood Pressure 136/87 130/63 139/65 Pulse Oximetry 97 95 96 01/30/18 01:16 01/30/18 01:30 01/30/18 01:45 Temperature Pulse Rate 110 H 111 H 113 H Respiratory Rate 23 22 18 Blood Pressure 147/70 H 153/83 H 149/74 H Pulse Oximetry 99 98 97 01/30/18 02:00 01/30/18 02:15 01/30/18 02:30 Temperature Pulse Rate 113 H 114 H 113 H Respiratory Rate 21 20 17 Blood Pressure 166/82 H 173/90 H 167/81 H Pulse Oximetry 98 98 98 01/30/18 02:45 01/30/18 03:00 01/30/18 03:17 Temperature Pulse Rate 112 H 112 H 113 H Respiratory Rate 22 18 21 Blood Pressure 155/76 H 157/76 H 139/82 Pulse Oximetry 100 98 98 01/30/18 03:30 01/30/18 03:45 01/30/18 04:00 Temperature 98.2 F Pulse Rate 115 H 115 H 115 H Respiratory Rate 20 24 20 Blood Pressure 155/80 H 165/77 H 160/80 H Pulse Oximetry 97 98 98 01/30/18 04:15 01/30/18 04:31 01/30/18 04:45 Temperature Pulse Rate 113 H 117 H 115 H Respiratory Rate 21 27 H 27 H Blood Pressure 149/73 H 160/79 H 156/77 H Pulse Oximetry 98 98 98 01/30/18 05:00 01/30/18 05:15 01/30/18 05:30 Temperature Pulse Rate 114 H 113 H 113 H Respiratory Rate 22 29 H 25 H Blood Pressure 160/81 H 155/74 H 159/74 H Pulse Oximetry 98 98 98 01/30/18 05:45 01/30/18 06:00 01/30/18 06:15 Temperature Pulse Rate 114 H 111 H 113 H Respiratory Rate 24 18 33 H Blood Pressure 154/71 H 162/74 H 168/80 H Pulse Oximetry 98 100 100 01/30/18 06:30 01/30/18 06:45 01/30/18 07:00 Temperature Pulse Rate 113 H 114 H 112 H Respiratory Rate 30 H 28 H 22 Blood Pressure 160/82 H 152/77 H 159/74 H Pulse Oximetry 99 100 100 01/30/18 07:15 01/30/18 08:00 Temperature Pulse Rate 113 H Respiratory Rate 24 Blood Pressure 163/75 H Pulse Oximetry 100 100 Intake & Output 01/29/18 01/30/18 01/30/18 18:59 06:59 18:59 Intake Total 800 / 800 275 / 275 550 / 550 Output Total 450 / 450 500 / 500 Balance 350 / 350 -225 / -225 550 / 550 Weight 62.5 kg Intake: IV 800 / 800 275 / 275 550 / 550 SandoSTATIN Inj 500 MCG In NS 500 / 500 500 / 500 Inj 500 ML @ 25 MCG/HR 25.02 mls/hr IV.CONT .Q20H1M MARGARETTE Rx#: [id number] Protonix Inj 80 MG In NS Inj 100 / 100 100 / 100 100 ML @ 10 mls/hr IV.CONT CONT MARGARETTE Rx#:[id number] Zosyn 3.375 GM Premix 50 ML @ 100 / 100 50 / 50 50 / 50 100 mls/hr IV.SIG Q6HR MARGARETTE Rx#: [id number] KCl 40 mEq Premix Inj 40 meq In 100 / 100 100 / 100 100 ml @ 25 mls/hr IV.SIG Q2H PRN Rx#:[id number] Output: Urine 450 / 450 500 / 500 Other: # Voids 1 3 Date of Last Bowel Movement 01/29/18 01/30/18 # Bowel Movements 2 1 - Urinary Catheter Management Straight Cath placed during this visit: no <Antonette Aldana - Last Filed: 01/30/18 10:22> Results - Labs CBC & Chem 7: 01/29/18 09:05 01/29/18 09:05 Laboratory Results - last 24 hr 01/28/18 01/29/18 01/29/18 23:46 04:36 04:36 WBC RBC Hgb 9.1 L 9.1 L Hct MCV MCH MCHC RDW Plt Count MPV Prelim Diff (Auto) Neut % (Auto) Lymph % (Auto) Lyon % (Auto) Eos % (Auto) Baso % (Auto) Neut # (Auto) Lymph # (Auto) Lyon # (Auto) Eos # (Auto) Baso # (Auto) WBC Differential Diff Scan Differential Comment Toxic Granulation Platelet Estimate Platelet Morphology Ovalocytes Mariama Cells Sodium Potassium Chloride Carbon Dioxide Anion Gap BUN Creatinine Estimated GFR Random Glucose Calcium Total Bilirubin AST ALT Alkaline Phosphatase Ammonia 55 H Total Protein Albumin 01/29/18 01/29/18 09:05 09:05 WBC 11.0 RBC 2.88 L Hgb 9.2 L Hct 26.5 L MCV 91.8 MCH 32.0 MCHC 34.8 RDW 19.6 H Plt Count 96 L MPV 8.1 Prelim Diff (Auto) Slide review pending Neut % (Auto) 78.9 H Lymph % (Auto) 9.9 Lyon % (Auto) 10.8 H Eos % (Auto) 0.3 Baso % (Auto) 0.1 Neut # (Auto) 8.7 H Lymph # (Auto) 1.1 Lyon # (Auto) 1.2 H Eos # (Auto) 0.0 Baso # (Auto) 0.0 WBC Differential . Diff Scan Auto diff confirmed Differential Comment . Toxic Granulation 1+ H Platelet Estimate Low L Platelet Morphology Normal Ovalocytes 1+ H Reagan Cells 1+ H Sodium 148 H Potassium 2.6 L* Chloride 111 H Carbon Dioxide 26.8 Anion Gap 10 BUN 25 H Creatinine 1.31 H Estimated GFR 43 L Random Glucose 97 Calcium 8.4 L D Total Bilirubin 29.5 H AST 95 H ALT 38 Alkaline Phosphatase 156 H Ammonia Total Protein 6.3 L Albumin 2.3 L Microbiology 01/28/18 06:05 Catheterized Urine Urine Culture - Preliminary No growth in 24 hours 01/28/18 05:40 Fluid - Peritoneal fluid Gram Stain - Final 01/28/18 05:40 Fluid - Peritoneal fluid Body Fluid Culture - Preliminary No growth in 24 hours 01/27/18 19:15 Blood - Peripheral Aerobic Blood Culture - Preliminary No growth in 2 days 01/27/18 19:15 Blood - Peripheral Anaerobic Blood Culture - Preliminary No growth in 2 days 01/27/18 19:15 Blood - Peripheral Aerobic Blood Culture - Preliminary No growth in 2 days 01/27/18 19:15 Blood - Peripheral Anaerobic Blood Culture - Preliminary No growth in 2 days <Leanne Torres - Last Filed: 01/29/18 13:56> - Labs CBC & Chem 7: 01/29/18 09:05 01/30/18 03:20 Laboratory Results - last 24 hr 01/29/18 01/30/18 01/30/18 09:05 03:20 05:28 WBC Differential . Diff Scan Auto diff confirmed Toxic Granulation 1+ H Platelet Estimate Low L Platelet Morphology Normal Ovalocytes 1+ H Mariama Cells 1+ H Potassium 3.6 D Ammonia 42 H Microbiology 01/28/18 06:05 Catheterized Urine Urine Culture - Preliminary No growth in 24 hours 01/28/18 05:40 Fluid - Peritoneal fluid Gram Stain - Final 01/28/18 05:40 Fluid - Peritoneal fluid Body Fluid Culture - Preliminary No growth in 24 hours 01/27/18 19:15 Blood - Peripheral Aerobic Blood Culture - Preliminary No growth in 2 days 01/27/18 19:15 Blood - Peripheral Anaerobic Blood Culture - Preliminary No growth in 2 days 01/27/18 19:15 Blood - Peripheral Aerobic Blood Culture - Preliminary No growth in 2 days 01/27/18 19:15 Blood - Peripheral Anaerobic Blood Culture - Preliminary No growth in 2 days <Antonette Aldana - Last Filed: 01/30/18 10:22> Assessment and Plan (1) Acute GI bleeding Status: Resolved Code(s): K92.2 - Gastrointestinal hemorrhage, unspecified (2) Anemia Status: Chronic Code(s): D64.9 - Anemia, unspecified (3) Encephalopathy Status: Acute Code(s): G93.40 - Encephalopathy, unspecified (4) Portal hypertensive gastropathy Status: Acute Code(s): K76.6 - Portal hypertension; K31.89 - Other diseases of stomach and duodenum (5) Anemia Status: Acute Code(s): D64.9 - Anemia, unspecified (6) Liver failure Status: Chronic Code(s): K72.90 - Hepatic failure, unspecified without coma - Plan Ms. Murray is a 47-year-old female with a significant past medical history for alcoholic dependence, cirrhosis, chronic hepatitis C, gastritis and portal hypertensive gastropathy. Patient underwent banding and ligation of esophageal varices x2 in 2016. Patient also has history of cocaine abuse. This patient presented to [facility] on 01/27/2018 with altered mental status and jaundice. Melena stools were noted on arrival. No reported vomiting. This patient has a moderate to large amount of abdominal ascites due to her history of cirrhosis. Diagnostic paracentesis attempted this a.m. per patient's nurse, small amount of fluid obtained for cytology. Most recent hemoglobin 9.0. As patient has received 2 units of packed RBCs and 4 units of fresh frozen plasma. INR 1.8 platelet count 85 total bilirubin 29.1 AST 84 ALT 34 alk phos 134.TIBC of 182 and iron saturation of 90.1. Of note patient's ammonia level is 180. patient currently receiving lactulose via NG every 6 hours . Last EGD 01/02/2018 showed portal hypertensive gastropathy and erythematous gastritis no varices were noted at that time. Upon exam of patient during consult, a large amount of black tarry stools are noted with scant amount of dark emesis and NG tube. Patient currently on pantoprazole drip and octreotide drip has been ordered. Will obtain consent for EGD as GI has been consulted to evaluate GI bleeding as well as cirrhosis. 01/29/18-patient continues to be encephalopathic. Ammonia level trending down noted to be 55 today. Total bilirubin 29.5 AST 95 ALT 38 alk phos 156 all trending upward. Hemoglobin 9.2 hematocrit 26.5 platelet count 96 stable at this time. Melena stools moderate amount noted. Portal gastropathy likely the source of her bleeding. Patient not a candidate for TIPS or transplant at this time overall prognosis is poor. Plan -NG in place -Monitor for bleeding -Continue to monitor labs -Pantoprazole drip -Xifaxan -Lactulose -Zofran as needed -Continue Sandostatin drip -Supportive care-possible hospice referral as prognosis is poor This patient has been seen by myself and Dr. Aldana and this note is written on his behalf - Attending Attestation Dr. Aldana <Leanne Torres - Last Filed: 01/29/18 13:56> (1) Acute GI bleeding Status: Resolved Code(s): K92.2 - Gastrointestinal hemorrhage, unspecified (2) Anemia Status: Chronic Code(s): D64.9 - Anemia, unspecified (3) Encephalopathy Status: Acute Code(s): G93.40 - Encephalopathy, unspecified (4) Portal hypertensive gastropathy Status: Acute Code(s): K76.6 - Portal hypertension; K31.89 - Other diseases of stomach and duodenum (5) Anemia Status: Acute Code(s): D64.9 - Anemia, unspecified (6) Liver failure Status: Chronic Code(s): K72.90 - Hepatic failure, unspecified without coma <Antonette Aldana - Last Filed: 01/30/18 10:22> <Leanne Torres - Last Filed: 01/29/18 13:56> (5) Anemia Qualifiers: Anemia type: other cause Other causes of anemia: acute posthemorrhagic Qualified Code(s): D62 - Acute posthemorrhagic anemia (6) Liver failure Qualifiers: Liver failure chronicity: chronic <Antonette Aldana - Last Filed: 01/30/18 10:22> (5) Anemia Qualifiers: Anemia type: other cause Other causes of anemia: acute posthemorrhagic Qualified Code(s): D62 - Acute posthemorrhagic anemia (6) Liver failure Qualifiers: Liver failure chronicity: chronic
[2018-01-29] MEDS ORDERED: Phytonadione Inj 10 MG in Sodium Chlor 0.9% Inj 50 ML IV.SIG ONE (21:00)
[2018-01-30] MEDS: Piperacil/Tazo 3.375 GM Premix 50 ML IV.SIG SCH ×3 (00:05→16:30)
[2018-01-30] MEDS: Pantoprazole Inj 80 MG in Sodium Chlor 0.9% Inj 100 ML IV.CONT SCH (06:45)
[2018-01-30] MEDS: Chlorhexidine Gluconate 2% 1 Pack (2 Cloths) TOPICAL SCH (07:13)
[2018-01-30] MEDS: rifAXIMin 550 MG Tablet NG/OG SCH ×2 (09:32→22:15)
[2018-01-30] MEDS: Multivitamin/Minerals Therapeutic Tablet NG/OG SCH (09:32)
[2018-01-30] MEDS: Folic Acid 1 MG Tablet NG/OG SCH (09:32)
[2018-01-30] MEDS: predniSONE 20 MG Tablet NG/OG SCH (09:32)
[2018-01-30] MEDS: Octreotide Inj 500 MCG in Sodium Chlor 0.9% Inj 500 ML IV.CONT SCH (10:07)
--- NOTE | 2018-01-30 10:16 | P.CONPAL ---
Consult Service: Palliative Care Requesting Physician: Romulo Chatterjee Reason for Consult: a. To assist with evaluation and management of symptoms including: pain, anxiety b. To assist medical decision maker(s) with: better understanding of current medical conditions; weighing benefits/burdens of medical treatment options; making medical treatment decisions. Primary Care Provider: UNKNOWN History of Present Illness History of Present Illness: Ms. Murray is a 47-year-old female with chronic hepatitis C, gastritis, portal hypertension, alcohol dependence, and cocaine abuse. She previously presented to [facility] on 12/26/17 with altered mental status, jaundice, and melena. Today she was brought in via EMS with altered mental status and melena. She was reportedly found unresponsive and upon evaluation in the emergency room remained only responsive to pain, though she was protecting her airway. The decision was made to admit for further evaluation and treatment. Initial emergency room evaluation revealed: * Temp 97.6, pulse 126, respiratory rate 18, BP 116/63, pulse oximetry 100% on room air * WBC 20.9, RBC 2.38, Hgb 7.6, HCT 22.7, platelets 162, absolute neutrophils 18.3 * PT 23.5 INR 2.3 APTT 36.9 * Na 140, K+ 2.7, Cl 100, carbon dioxide 24.7, BUN 27, creatinine 2.11, estimated GFR 25, glucose 88 * CA 7.5, total bili 24.8, AST 82, ALT 33, alkaline phosphatase 149, total protein 5.7, albumin 1.8, ammonia 137 * Abdominal ultrasound: Moderate ascites * CXR:Minimal focal patchiness in left lung bases consistent with possible [id number] infiltrate Dr. Vick (ambulatory care) was consulted due to critically ill nature of this patient. She received 2 units of PRBC, electrolytes were replaced, and coagulopathy was addressed. Patient received a lactulose enema, and was started on antibiotics. Dr. Willams (gastroenterology) was consulted due to melena, chronic hepatitis C, and jaundice. She was started on pantoprazole and Sandostatin infusion. Lactulose was ordered every 6 hours, and the patient was being considered for repeat EGD. Last EGD on 01/02/18 showed portal hypertensive gastropathy and erythematous gastritis. There were no varices at that time. In August 2017 she had gastric ulcers that did not require intervention. She also has had esophageal varices with banding back in 2016. Over the course of her stay the patient continued to decompensate. Palliative care was consulted to aid in decision making and symptom management. Upon examination the patient is restrained and appears slightly anxious. She answers 'hello' when she is spoken to but can not name her family members present in the room. She does not know where she is or the date. She does deny pain at this time. Further information regarding goals, etc to follow. Function/Cognitive Trajectory: Prior to this admission the patient was independent of ambulation and ADL's though frequently did not follow with routine medical care. Review of Systems unobtainable due to mental status PMFSH - History History Provided By: Medical Record - Medical History Medical History: Medical History (Last Reviewed 01/28/18 @ 07:31 by Landen Cortez) Portal hypertensive gastropathy (Acute) Hepatitis C, chronic (Acute) Liver failure (Chronic) Post hysterectomy menopause (Acute) Cirrhosis (Chronic) EtOH dependence History of hysterectomy Hepatitis Renal failure - Surgical History Surgical History: Surgical History (Last Reviewed 01/28/18 @ 07:31 by Landen Cortez) History of esophagogastroduodenoscopy (EGD) History of open reduction and internal fixation (ORIF) procedure Hx of colonoscopy - Family History Family History: Family History (Last Updated 01/28/18 @ 04:24 by Erin Vick MD) Mother Pancreatic cancer Liver cancer Esophageal cancer Father EtOH dependence Cirrhosis - Tobacco History Second Hand Smoke Exposure: Yes Smoking Status: Smoker, status unknown Tobacco Type: Cigarettes - Alcohol History How Often Do You Have a Drink Containing Alcohol: Unable to Obtain - Substance Use History Substance History: Past History - Travel History Recent Travel in the [place] Within the Last 8 Weeks: No Recent Travel Out of the Country Within the Last 8 Weeks: No - Immunization History Tetanus Immunization: Unable to Assess Medications and Allergies Active Medications: Active Medications Albuterol (Albuterol Neb (Prn)) 2.5 mg NEB Q2HR NEB PRN PRN Reason: SHORTNESS OF BREATH/WHEEZING Chlorhexidine Gluconate (Chlorhexidine 2% Cloth) 3 pack TOPICAL DAILY@0400 MARGARETTE Stop: 02/02/18 03:59 Last Admin: 01/30/18 07:13 Dose: 3 pack Chlorhexidine Gluconate (Chlorhexidine 2% Cloth) 3 pack TOPICAL DAILY@0400 PRN PRN Reason: Extra cloth needed Stop: 02/02/18 03:59 Folic Acid (Folic Acid) 1 mg NG/OG DAILY [facility] Last Admin: 01/30/18 09:32 Dose: 1 mg Pantoprazole Sodium 80 mg/ (Sodium Chloride) 100 mls @ 10 mls/hr IV.CONT CONT [facility] Last Admin: 01/30/18 06:45 Dose: 10 mls/hr Piperacillin/Tazobactam/Dextrose (Zosyn 3.375 Gm Premix) 50 mls @ 100 mls/hr IV.SIG Q6HR [facility] Last Infusion: 01/30/18 07:13 Dose: Infused Magnesium Sulfate 4 gm/ Sodium (Chloride) 100 mls @ 50 mls/hr IV.SIG UNSCH PRN PRN Reason: For Magnesium 0.9 - 1.1 mg/dL Magnesium Sulfate 2 gm/ Sodium (Chloride) 100 mls @ 50 mls/hr IV.SIG UNSCH PRN PRN Reason: For Magnesium 1.2 - 1.6 mg/dL Potassium Chloride (Kcl 40 Meq Premix Inj) 40 meq in 100 mls @ 25 mls/hr IV.SIG Q2H PRN PRN Reason: For Potassium 2.8 - 3.2 mEq/L Last Infusion: 01/29/18 23:00 Dose: Infused Potassium Chloride (Kcl 20 Meq Premix Inj) 20 meq in 100 mls @ 50 mls/hr IV.SIG Q2H PRN PRN Reason: For Potassium 3.3 - 3.5 mEq/L Potassium Chloride (Kcl 40 Meq Premix Inj) 40 meq in 100 mls @ 25 mls/hr IV.SIG UNSCH PRN PRN Reason: For Potassium 3.3 - 3.5 mEq/L Last Infusion: 01/28/18 14:36 Dose: Infused Potassium Chloride (Kcl 20 Meq Premix Inj) 20 meq in 100 mls @ 50 mls/hr IV.SIG Q2H PRN PRN Reason: For Potassium 2.8 - 3.2 mEq/L Potassium Phosphate 30 mmol/ (Sodium Chloride) 260 mls @ 42 mls/hr IV.SIG UNSCH PRN PRN Reason: SEE LABEL COMMENTS Last Infusion: 01/29/18 06:23 Dose: Infused Sodium Phosphate 30 mmol/ (Sodium Chloride) 260 mls @ 42 mls/hr IV.SIG UNSCH PRN PRN Reason: For Phosphorus < 2.5 mg/dL Octreotide Acetate 500 mcg/ (Sodium Chloride) 500.5 mls @ 25.02 mls/hr IV.CONT .Q20H1M [facility] Last Admin: 01/29/18 11:22 Dose: 25 mcg/hr, 25.02 mls/hr Lactulose (Lactulose Liq) 30 ml NG/OG Q6H [facility] Last Admin: 01/30/18 09:32 Dose: 30 ml Magnesium Oxide (Mag-Ox) 800 mg PO UNSCH PRN PRN Reason: For Magnesium 1.2 - 1.6 mg/dL Multivitamins/Minerals (Theragran-M) 1 tab NG/OG DAILY [facility] Last Admin: 01/30/18 09:32 Dose: 1 tab Ondansetron HCl (Zofran Inj) 4 mg IV.PUSH Q6H PRN PRN Reason: NAUSEA OR VOMITING Potassium Bicarb/Potassium Chloride (K-Lyte Cl Eff) 50 meq PO UNSCH PRN PRN Reason: For Potassium 3.3 - 3.5 mEq/L Potassium Phosphate (K-Phos Original) 2,000 mg PO Q4H PRN PRN Reason: Phosphorus Less Than 2.5 mg/dL Potassium Phosphate (K-Phos Original) 2,000 mg PO UNSCH PRN PRN Reason: SEE LABEL COMMENTS Prednisone (Deltasone) 20 mg NG/OG DAILY [facility] Last Admin: 01/30/18 09:32 Dose: 20 mg Rifaximin (Xifaxan) 550 mg NG/OG Q12HR [facility] Last Admin: 01/30/18 09:32 Dose: 550 mg Sodium Chloride (Ns Flush) 2 ml IV.FLUSH BID [facility] Last Admin: 01/30/18 09:32 Dose: 2 ml Sodium Chloride (Ns Flush) 2 ml IV.FLUSH PRN PRN PRN Reason: FLUSH AFTER USING IV ACCESS Thiamine HCl (Vitamin B1) 100 mg NG/OG DAILY [facility] Last Admin: 01/30/18 09:32 Dose: 100 mg Allergies Allergy/AdvReac Type Severity Reaction Status Date / Time No Known Allergies Allergy Verified 01/27/18 17:55 Advance Directives Living Will: No Healthcare Surrogate: No Power of Photonics Technician: No Documented care wishes: The patient does not have a documented living will or advance directive. Today's verbally stated goals: The patient is currently unable to participate in her own care. She was apparently more lucid yesterday and was able to discuss her care with Dr. Chatterjee. She stated her wishes to be a DNR and for comfort measures at that time. The conversation is documented in Dr. Chatterjee's progress note from yesterday Family/friends goals: Her sons, Spike and Stanislaw, as well as her sister Megan were present. They stated they were in agreement to make their mother as comfortable as possible. They have elected to meet with [facility] today. They stated they would like to keep her inpatient for now but would consider transfer to a care center. Ethical and Legal Issues: The patient's ex-, Saeid Murray is reportedly recently from cardiac arrest. The patient has 3 adult sons, though is estranged from 2 of them. She was able to verbally states she would like her son Spike العراقي to be her decision maker. Physical Exam Vital Signs: Vital Signs - 24 hr 01/29/18 11:30 01/29/18 11:45 01/29/18 12:00 Temperature Pulse Rate 107 H 105 H 107 H Respiratory Rate 23 26 H 19 Blood Pressure 162/92 H 173/87 H 161/78 H Pulse Oximetry 01/29/18 12:16 01/29/18 12:31 01/29/18 12:46 Temperature Pulse Rate 109 H 108 H 105 H Respiratory Rate 29 H 27 H 17 Blood Pressure 163/72 H 144/65 H 140/65 Pulse Oximetry 01/29/18 13:00 01/29/18 13:15 01/29/18 13:31 Temperature Pulse Rate 105 H 106 H 108 H Respiratory Rate 23 25 H 39 H Blood Pressure 158/73 H 137/73 123/69 Pulse Oximetry 01/29/18 13:45 01/29/18 14:00 01/29/18 14:16 Temperature Pulse Rate 105 H 105 H 105 H Respiratory Rate 19 22 19 Blood Pressure 129/73 132/83 143/76 H Pulse Oximetry 01/29/18 14:30 01/29/18 14:45 01/29/18 15:00 Temperature Pulse Rate 103 H 105 H 105 H Respiratory Rate 19 23 20 Blood Pressure 138/66 144/82 H Pulse Oximetry 01/29/18 15:01 01/29/18 15:16 10/07/18 15:31 Temperature Pulse Rate 105 H 106 H 106 H Respiratory Rate 22 21 20 Blood Pressure 126/79 144/78 H 150/77 H Pulse Oximetry 01/29/18 15:45 01/29/18 16:00 01/29/18 16:01 Temperature Pulse Rate 108 H 105 H 106 H Respiratory Rate 21 16 29 H Blood Pressure 142/67 H 146/86 H Pulse Oximetry 01/29/18 16:15 01/29/18 16:30 01/29/18 16:46 Temperature Pulse Rate 105 H 108 H 106 H Respiratory Rate 18 21 20 Blood Pressure 150/78 H 157/90 H 154/87 H Pulse Oximetry 01/29/18 17:00 01/29/18 17:15 01/29/18 17:30 Temperature Pulse Rate 109 H 112 H 109 H Respiratory Rate 16 20 16 Blood Pressure 155/85 H 158/77 H 152/69 H Pulse Oximetry 01/29/18 17:45 01/29/18 18:00 01/29/18 18:15 Temperature Pulse Rate 107 H 108 H 108 H Respiratory Rate 22 21 27 H Blood Pressure 145/80 H 135/82 140/70 Pulse Oximetry 01/29/18 18:30 01/29/18 18:45 01/29/18 19:00 Temperature Pulse Rate 108 H 108 H 109 H Respiratory Rate 18 21 29 H Blood Pressure 134/70 144/83 H Pulse Oximetry 01/29/18 19:01 01/29/18 19:15 01/29/18 19:30 Temperature Pulse Rate 109 H 113 H 109 H Respiratory Rate 31 H 31 H 29 H Blood Pressure 154/67 H 148/83 H 148/78 H Pulse Oximetry 01/29/18 19:45 01/29/18 20:00 01/29/18 20:15 Temperature 98.3 F Pulse Rate 108 H 110 H 108 H Respiratory Rate 34 H 27 H 19 Blood Pressure 135/63 139/77 137/65 Pulse Oximetry 99 01/29/18 20:30 01/29/18 20:45 01/29/18 21:00 Temperature Pulse Rate 109 H 111 H 111 H Respiratory Rate 17 21 23 Blood Pressure 136/71 128/77 131/75 Pulse Oximetry 01/29/18 21:15 01/29/18 21:39 01/29/18 21:45 Temperature Pulse Rate 115 H 109 H 109 H Respiratory Rate 22 26 H 34 H Blood Pressure 132/76 170/70 H 134/59 L Pulse Oximetry 97 95 97 01/29/18 22:00 01/29/18 22:15 01/29/18 22:30 Temperature Pulse Rate 109 H 109 H 109 H Respiratory Rate 21 21 22 Blood Pressure 147/76 H 154/76 H 152/78 H Pulse Oximetry 98 97 97 01/29/18 22:45 01/29/18 23:00 01/30/18 00:00 Temperature 98.4 F Pulse Rate 111 H 112 H 111 H Respiratory Rate 21 23 17 Blood Pressure 148/72 H 138/80 Pulse Oximetry 97 97 98 01/30/18 00:27 01/30/18 00:31 01/30/18 01:00 Temperature Pulse Rate 113 H 111 H 110 H Respiratory Rate 33 H 24 19 Blood Pressure 136/87 130/63 139/65 Pulse Oximetry 97 95 96 01/30/18 01:16 01/30/18 01:30 01/30/18 01:45 Temperature Pulse Rate 110 H 111 H 113 H Respiratory Rate 23 22 18 Blood Pressure 147/70 H 153/83 H 149/74 H Pulse Oximetry 99 98 97 01/30/18 02:00 01/30/18 02:15 01/30/18 02:30 Temperature Pulse Rate 113 H 114 H 113 H Respiratory Rate 21 20 17 Blood Pressure 166/82 H 173/90 H 167/81 H Pulse Oximetry 98 98 98 01/30/18 02:45 01/30/18 03:00 01/30/18 03:17 Temperature Pulse Rate 112 H 112 H 113 H Respiratory Rate 22 18 21 Blood Pressure 155/76 H 157/76 H 139/82 Pulse Oximetry 100 98 98 01/30/18 03:30 01/30/18 03:45 01/30/18 04:00 Temperature 98.2 F Pulse Rate 115 H 115 H 115 H Respiratory Rate 20 24 20 Blood Pressure 155/80 H 165/77 H 160/80 H Pulse Oximetry 97 98 98 01/30/18 04:15 01/30/18 04:31 01/30/18 04:45 Temperature Pulse Rate 113 H 117 H 115 H Respiratory Rate 21 27 H 27 H Blood Pressure 149/73 H 160/79 H 156/77 H Pulse Oximetry 98 98 98 01/30/18 05:00 01/30/18 05:15 01/30/18 05:30 Temperature Pulse Rate 114 H 113 H 113 H Respiratory Rate 22 29 H 25 H Blood Pressure 160/81 H 155/74 H 159/74 H Pulse Oximetry 98 98 98 01/30/18 05:45 01/30/18 06:00 01/30/18 06:15 Temperature Pulse Rate 114 H 111 H 113 H Respiratory Rate 24 18 33 H Blood Pressure 154/71 H 162/74 H 168/80 H Pulse Oximetry 98 100 100 01/30/18 06:30 01/30/18 06:45 01/30/18 07:00 Temperature Pulse Rate 113 H 114 H 112 H Respiratory Rate 30 H 28 H 22 Blood Pressure 160/82 H 152/77 H 159/74 H Pulse Oximetry 99 100 100 01/30/18 07:15 01/30/18 08:00 Temperature Pulse Rate 113 H Respiratory Rate 24 Blood Pressure 163/75 H Pulse Oximetry 100 100 I&O: Intake & Output 01/28/18 01/29/18 01/30/18 01/31/18 06:59 06:59 06:59 06:59 Intake Total 3380 / 3380 811 / 811 1075 / 1075 50 / 50 Output Total 1075 / 1075 450 / 450 950 / 950 Balance 2305 / 2305 361 / 361 125 / 125 50 / 50 Weight 66.8 kg 63.1 kg 62.5 kg Physical Exam: CONSTITUTIONAL/GENERAL: This is an adequately nourished patient, in no acute distress. TUBES/LINES/DRAINS: [facility] SKIN: Slightly jaundice. Ecchymoses on upper extremities. No wounds seen anteriorly. Skin temperature appropriate. Not diaphoretic. HEAD: Atraumatic. Normocephalic. EYES: Pupils equal and round and reactive. Extraocular motions intact. Moderate scleral icterus. No injection or drainage. Fundi not examined. ENT: Hearing grossly normal. Nose without bleeding or purulent drainage. Throat without visible erythema, exudates, masses, or lesions. NECK: Trachea midline. Supple, nontender. No palpable thyroid enlargement or nodularity. CARDIOVASCULAR: tachycardic with rhythm without murmurs, gallops, or rubs. No JVD. Peripheral pulses symmetric. RESPIRATORY/CHEST: Symmetric, unlabored respirations. Clear to auscultation. Breath sounds equal bilaterally. No wheezes, rales, or rhonchi. GASTROINTESTINAL: Abdomen soft, non-tender, slightly distended. No palpable masses. No guarding. Bowel sounds present intermittent GENITOURINARY: Mild bladder distention. No Pena in place MUSCULOSKELETAL: Extremities without clubbing, cyanosis, or edema. No joint tenderness or effusion noted. No calf tenderness. No mottling or clubbing. LYMPHATICS: No palpable cervical or supraclavicular adenopathy. NEUROLOGICAL: Awake and alert. Does not follow most commands. Moves all extremities. PSYCHIATRIC: appears somewhat anxious. Diagnostic Tests Laboratory: Laboratory Results - last 72 hr 01/27/18 01/27/18 01/27/18 16:10 16:30 16:30 WBC 20.9 H RBC 2.38 L Hgb 7.6 L Hct 22.7 L MCV 95.1 MCH 31.7 MCHC 33.3 RDW 24.9 H Plt Count 162 D MPV 9.0 Prelim Diff (Auto) Neut % (Auto) 87.7 H Lymph % (Auto) 5.0 L [place] % (Auto) 7.0 Eos % (Auto) 0.2 Baso % (Auto) 0.1 Neut # (Auto) 18.3 H Lymph # (Auto) 1.1 [place] # (Auto) 1.5 H Eos # (Auto) 0.0 Baso # (Auto) 0.0 WBC Differential . Diff Scan Differential Comment Auto diff final Toxic Granulation Platelet Estimate Platelet Morphology Ovalocytes Mariama Cells PT 23.5 H INR 2.3 APTT 36.9 H Fibrinogen Puncture Site Patient Temperature O2 Saturation ABG pH ABG pCO2 ABG pO2 ABG HCO3 ABG O2 Content ABG Base Excess ABG Methemoglobin Som Test Hemoglobin Carboxyhemoglobin O2 Delivery Device Liter Flow Critical Value Sodium 140 Potassium 2.7 L* Chloride 100 Carbon Dioxide 24.7 Anion Gap 15 BUN 27 H Creatinine 2.11 H Estimated GFR 25 L POC Glucose Random Glucose 88 Lactic Acid Calcium 7.5 L Prot Corrected Calcium Phosphorus Magnesium Iron TIBC % Saturation Total Bilirubin 24.8 H AST 82 H ALT 33 Alkaline Phosphatase 149 H Ammonia Total Creatine Kinase Total Protein 5.7 L Albumin 1.8 L Lipase 104 Urine Color Urine Clarity Urine pH Ur Specific [place] Urine Protein Urine Glucose (UA) Urine Ketones Urine Occult Blood Urine Nitrate Urine Bilirubin Urine Ictotest Urine Urobilinogen Ur Leukocyte Esterase Urine RBC Urine WBC Ur Squamous Epith Cells Urine Bacteria Hyaline Casts Urine Mucus Micro UA Comment Ur Microscopic Review Urine Culture Comments Urine Eosinophils Ur Random Creatinine Ur Random Sodium Peritoneal RBC [place] Nuc Cells [place] Neutrophils [place] Lymphocytes Peritoneal Monocytes [place] Mesothelial Peritoneal Plasma Cell Peritoneal Other Cells Nasal Screen MRSA (PCR) Urine Opiates Screen Acetaminophen Ur Barbiturates Screen Ur Amphetamines Screen U Benzodiazepines Scrn Urine Cocaine Screen U Cannabinoids Screen Serum Alcohol Less than 3 Blood Type Antibody Screen MTS Gel Crossmatch Blood Bank Comment Bld Prod Order Comment 01/27/18 01/27/18 01/27/18 16:30 16:30 16:30 WBC RBC Hgb Hct MCV MCH MCHC RDW Plt Count MPV Prelim Diff (Auto) Neut % (Auto) Lymph % (Auto) [place] % (Auto) Eos % (Auto) Baso % (Auto) Neut # (Auto) Lymph # (Auto) [place] # (Auto) Eos # (Auto) Baso # (Auto) WBC Differential Diff Scan Differential Comment Toxic Granulation Platelet Estimate Platelet Morphology Ovalocytes Mariama Cells PT INR APTT Fibrinogen Puncture Site Patient Temperature O2 Saturation ABG pH ABG pCO2 ABG pO2 ABG HCO3 ABG O2 Content ABG Base Excess ABG Methemoglobin Som Test Hemoglobin Carboxyhemoglobin O2 Delivery Device Liter Flow Critical Value Sodium Potassium Chloride Carbon Dioxide Anion Gap BUN Creatinine Estimated GFR POC Glucose Random Glucose Lactic Acid Calcium Prot Corrected Calcium Phosphorus Magnesium Iron TIBC % Saturation Total Bilirubin AST ALT Alkaline Phosphatase Ammonia 137 H Total Creatine Kinase Total Protein Albumin Lipase Urine Color Urine Clarity Urine pH Ur Specific [place] Urine Protein Urine Glucose (UA) Urine Ketones Urine Occult Blood Urine Nitrate Urine Bilirubin Urine Ictotest Urine Urobilinogen Ur Leukocyte Esterase Urine RBC Urine WBC Ur Squamous Epith Cells Urine Bacteria Hyaline Casts Urine Mucus Micro UA Comment Ur Microscopic Review Urine Culture Comments Urine Eosinophils Ur Random Creatinine Ur Random Sodium Peritoneal RBC [place] Nuc Cells [place] Neutrophils [place] Lymphocytes Peritoneal Monocytes [place] Mesothelial Peritoneal Plasma Cell Peritoneal Other Cells Nasal Screen MRSA (PCR) Urine Opiates Screen Acetaminophen Ur Barbiturates Screen Ur Amphetamines Screen U Benzodiazepines Scrn Urine Cocaine Screen U Cannabinoids Screen Serum Alcohol Blood Type O Negative Antibody Screen Negative MTS Gel Crossmatch See Detail Blood Bank Comment Bld Prod Order Comment 01/27/18 01/27/18 01/27/18 17:49 19:04 19:15 WBC RBC Hgb Hct MCV MCH MCHC RDW Plt Count MPV Prelim Diff (Auto) Neut % (Auto) Lymph % (Auto) [place] % (Auto) Eos % (Auto) Baso % (Auto) Neut # (Auto) Lymph # (Auto) [place] # (Auto) Eos # (Auto) Baso # (Auto) WBC Differential Diff Scan Differential Comment Toxic Granulation Platelet Estimate Platelet Morphology Ovalocytes Mariama Cells PT INR APTT Fibrinogen Puncture Site Right radial Patient Temperature 98.6 O2 Saturation 98 ABG pH 7.47 H ABG pCO2 33 L ABG pO2 148 H ABG HCO3 23 ABG O2 Content 9.2 L ABG Base Excess 0.0 ABG Methemoglobin 0.0 Som Test Present Hemoglobin 6.5 L* Carboxyhemoglobin 2.1 O2 Delivery Device Nasal cannula Liter Flow 3.00 Critical Value Yes Sodium Potassium Chloride Carbon Dioxide Anion Gap BUN Creatinine Estimated GFR POC Glucose 104 Random Glucose Lactic Acid 5.1 H* Calcium Prot Corrected Calcium Phosphorus Magnesium Iron TIBC % Saturation Total Bilirubin AST ALT Alkaline Phosphatase Ammonia Total Creatine Kinase Total Protein Albumin Lipase Urine Color Urine Clarity Urine pH Ur Specific [place] Urine Protein Urine Glucose (UA) Urine Ketones Urine Occult Blood Urine Nitrate Urine Bilirubin Urine Ictotest Urine Urobilinogen Ur Leukocyte Esterase Urine RBC Urine WBC Ur Squamous Epith Cells Urine Bacteria Hyaline Casts Urine Mucus Micro UA Comment Ur Microscopic Review Urine Culture Comments Urine Eosinophils Ur Random Creatinine Ur Random Sodium Peritoneal RBC [place] Nuc Cells Periton Neutrophils [place] Lymphocytes Peritoneal Monocytes [place] Mesothelial Peritoneal Plasma Cell Peritoneal Other Cells Nasal Screen MRSA (PCR) Urine Opiates Screen Acetaminophen Ur Barbiturates Screen Ur Amphetamines Screen U Benzodiazepines Scrn Urine Cocaine Screen U Cannabinoids Screen Serum Alcohol Blood Type Antibody Screen MTS Gel Crossmatch Blood Bank Comment Bld Prod Order Comment 01/27/18 01/27/18 01/27/18 19:15 19:15 20:18 WBC RBC Hgb Hct MCV MCH MCHC RDW Plt Count MPV Prelim Diff (Auto) Neut % (Auto) Lymph % (Auto) [place] % (Auto) Eos % (Auto) Baso % (Auto) Neut # (Auto) Lymph # (Auto) [place] # (Auto) Eos # (Auto) Baso # (Auto) WBC Differential Diff Scan Differential Comment Toxic Granulation Platelet Estimate Platelet Morphology Ovalocytes Mariama Cells PT INR APTT Fibrinogen Puncture Site Patient Temperature O2 Saturation ABG pH ABG pCO2 ABG pO2 ABG HCO3 ABG O2 Content ABG Base Excess ABG Methemoglobin Osm Test Hemoglobin Carboxyhemoglobin O2 Delivery Device Liter Flow Critical Value Sodium Potassium Chloride Carbon Dioxide Anion Gap BUN Creatinine Estimated GFR POC Glucose Random Glucose Lactic Acid Calcium Prot Corrected Calcium Phosphorus 2.6 Magnesium 1.5 Iron TIBC % Saturation Total Bilirubin AST ALT Alkaline Phosphatase Ammonia Total Creatine Kinase 46 Total Protein Albumin Lipase Urine Color Urine Clarity Urine pH Ur Specific [place] Urine Protein Urine Glucose (UA) Urine Ketones Urine Occult Blood Urine Nitrate Urine Bilirubin Urine Ictotest Urine Urobilinogen Ur Leukocyte Esterase Urine RBC Urine WBC Ur Squamous Epith Cells Urine Bacteria Hyaline Casts Urine Mucus Micro UA Comment Ur Microscopic Review Urine Culture Comments Urine Eosinophils Ur Random Creatinine Ur Random Sodium Peritoneal RBC Periton Nuc Cells Periton Neutrophils Periton Lymphocytes Peritoneal Monocytes [place] Mesothelial Peritoneal Plasma Cell Peritoneal Other Cells Nasal Screen MRSA (PCR) Urine Opiates Screen Acetaminophen Less than 2.0 L Ur Barbiturates Screen Ur Amphetamines Screen U Benzodiazepines Scrn Urine Cocaine Screen U Cannabinoids Screen Serum Alcohol Blood Type Antibody Screen MTS Gel Crossmatch Blood Bank Comment Bld Prod Order Comment 01/27/18 01/28/18 01/28/18 22:00 01:00 01:00 WBC 20.1 H RBC 3.14 L Hgb 9.8 L D Hct 28.2 L MCV 90.0 D MCH 31.2 MCHC 34.7 RDW 18.3 H D Plt Count 111 L D MPV 8.1 Prelim Diff (Auto) Neut % (Auto) Lymph % (Auto) [place] % (Auto) Eos % (Auto) Baso % (Auto) Neut # (Auto) Lymph # (Auto) [place] # (Auto) Eos # (Auto) Baso # (Auto) WBC Differential Diff Scan Differential Comment Toxic Granulation Platelet Estimate Platelet Morphology Ovalocytes [place] Cells PT 18.7 H INR 1.8 APTT 33.3 H Fibrinogen Puncture Site Patient Temperature O2 Saturation ABG pH ABG pCO2 ABG pO2 ABG HCO3 ABG O2 Content ABG Base Excess ABG Methemoglobin Som Test Hemoglobin Carboxyhemoglobin O2 Delivery Device Liter Flow Critical Value Sodium Potassium Chloride Carbon Dioxide Anion Gap BUN Creatinine Estimated GFR POC Glucose Random Glucose Lactic Acid Calcium Prot Corrected Calcium Phosphorus Magnesium Iron TIBC % Saturation Total Bilirubin AST ALT Alkaline Phosphatase Ammonia Total Creatine Kinase Total Protein Albumin Lipase Urine Color Urine Clarity Urine pH Ur Specific [place] Urine Protein Urine Glucose (UA) Urine Ketones Urine Occult Blood Urine Nitrate Urine Bilirubin Urine Ictotest Urine Urobilinogen Ur Leukocyte Esterase Urine RBC Urine WBC Ur Squamous Epith Cells Urine Bacteria Hyaline Casts Urine Mucus Micro UA Comment Ur Microscopic Review Urine Culture Comments Urine Eosinophils Ur Random Creatinine Ur Random Sodium Peritoneal RBC [place] Nuc Cells [place] Neutrophils [place] Lymphocytes Peritoneal Monocytes [place] Mesothelial Peritoneal Plasma Cell Peritoneal Other Cells Nasal Screen MRSA (PCR) Mrsa detected Urine Opiates Screen Acetaminophen Ur Barbiturates Screen Ur Amphetamines Screen U Benzodiazepines Scrn Urine Cocaine Screen U Cannabinoids Screen Serum Alcohol Blood Type Antibody Screen MTS Gel Crossmatch Blood Bank Comment Bld Prod Order Comment 01/28/18 01/28/18 01/28/18 01:00 03:07 03:20 WBC 15.8 H RBC 3.09 L Hgb 9.7 L Hct 27.9 L MCV 90.3 MCH 31.4 MCHC 34.8 RDW 18.3 H Plt Count 100 L MPV 7.9 Prelim Diff (Auto) Neut % (Auto) 81.6 H Lymph % (Auto) 9.2 [place] % (Auto) 8.8 H Eos % (Auto) 0.2 Baso % (Auto) 0.2 Neut # (Auto) 12.9 H Lymph # (Auto) 1.5 [place] # (Auto) 1.4 H Eos # (Auto) 0.0 Baso # (Auto) 0.0 WBC Differential . Diff Scan Differential Comment Auto diff final Toxic Granulation Platelet Estimate Platelet Morphology Ovalocytes [place] Cells PT INR APTT Fibrinogen 147 L Puncture Site Patient Temperature O2 Saturation ABG pH ABG pCO2 ABG pO2 ABG HCO3 ABG O2 Content ABG Base Excess ABG Methemoglobin Som Test Hemoglobin Carboxyhemoglobin O2 Delivery Device Liter Flow Critical Value Sodium Potassium Chloride Carbon Dioxide Anion Gap BUN Creatinine Estimated GFR POC Glucose Random Glucose Lactic Acid Calcium Prot Corrected Calcium Phosphorus Magnesium Iron TIBC % Saturation Total Bilirubin AST ALT Alkaline Phosphatase Ammonia Total Creatine Kinase Total Protein Albumin Lipase Urine Color Urine Clarity Urine pH Ur Specific [place] Urine Protein Urine Glucose (UA) Urine Ketones Urine Occult Blood Urine Nitrate Urine Bilirubin Urine Ictotest Urine Urobilinogen Ur Leukocyte Esterase Urine RBC Urine WBC Ur Squamous Epith Cells Urine Bacteria Hyaline Casts Urine Mucus Micro UA Comment Ur Microscopic Review Urine Culture Comments Urine Eosinophils Ur Random Creatinine Ur Random Sodium Peritoneal RBC [place] Nuc Cells [place] Neutrophils [place] Lymphocytes Peritoneal Monocytes [place] Mesothelial Peritoneal Plasma Cell Peritoneal Other Cells Nasal Screen MRSA (PCR) Urine Opiates Screen Acetaminophen Ur Barbiturates Screen Ur Amphetamines Screen U Benzodiazepines Scrn Urine Cocaine Screen U Cannabinoids Screen Serum Alcohol Blood Type Antibody Screen MTS Gel Crossmatch Blood Bank Comment Bld Prod Order Comment 01/28/18 01/28/18 01/28/18 03:20 05:40 06:05 WBC RBC Hgb Hct MCV MCH MCHC RDW Plt Count MPV Prelim Diff (Auto) Neut % (Auto) Lymph % (Auto) [place] % (Auto) Eos % (Auto) Baso % (Auto) Neut # (Auto) Lymph # (Auto) [place] # (Auto) Eos # (Auto) Baso # (Auto) WBC Differential Diff Scan Differential Comment Toxic Granulation Platelet Estimate Platelet Morphology Ovalocytes [place] Cells PT 17.8 H INR 1.8 APTT Fibrinogen 154 L Puncture Site Patient Temperature O2 Saturation ABG pH ABG pCO2 ABG pO2 ABG HCO3 ABG O2 Content ABG Base Excess ABG Methemoglobin Som Test Hemoglobin Carboxyhemoglobin O2 Delivery Device Liter Flow Critical Value Sodium Potassium Chloride Carbon Dioxide Anion Gap BUN Creatinine Estimated GFR POC Glucose Random Glucose Lactic Acid Calcium Prot Corrected Calcium Phosphorus Magnesium Iron TIBC % Saturation Total Bilirubin AST ALT Alkaline Phosphatase Ammonia Total Creatine Kinase Total Protein Albumin Lipase Urine Color Urine Clarity Urine pH Ur Specific [place] Urine Protein Urine Glucose (UA) Urine Ketones Urine Occult Blood Urine Nitrate Urine Bilirubin Urine Ictotest Urine Urobilinogen Ur Leukocyte Esterase Urine RBC Urine WBC Ur Squamous Epith Cells Urine Bacteria Hyaline Casts Urine Mucus Micro UA Comment Ur Microscopic Review Urine Culture Comments Urine Eosinophils None seen Ur Random Creatinine Ur Random Sodium Peritoneal RBC 20 H [place] Nuc Cells 205 H [place] Neutrophils 38 [place] Lymphocytes 23 Peritoneal Monocytes 34 [place] Mesothelial 3 Peritoneal Plasma Cell 1 Peritoneal Other Cells 1 Nasal Screen MRSA (PCR) Urine Opiates Screen Acetaminophen Ur Barbiturates Screen Ur Amphetamines Screen U Benzodiazepines Scrn Urine Cocaine Screen U Cannabinoids Screen Serum Alcohol Blood Type Antibody Screen MTS Gel Crossmatch Blood Bank Comment Bld Prod Order Comment 01/28/18 01/28/18 01/28/18 06:05 06:05 06:05 WBC RBC Hgb Hct MCV MCH MCHC RDW Plt Count MPV Prelim Diff (Auto) Neut % (Auto) Lymph % (Auto) [place] % (Auto) Eos % (Auto) Baso % (Auto) Neut # (Auto) Lymph # (Auto) [place] # (Auto) Eos # (Auto) Baso # (Auto) WBC Differential Diff Scan Differential Comment Toxic Granulation Platelet Estimate Platelet Morphology Ovalocytes [place] Cells PT INR APTT Fibrinogen Puncture Site Patient Temperature O2 Saturation ABG pH ABG pCO2 ABG pO2 ABG HCO3 ABG O2 Content ABG Base Excess ABG Methemoglobin Som Test Hemoglobin Carboxyhemoglobin O2 Delivery Device Liter Flow Critical Value Sodium Potassium Chloride Carbon Dioxide Anion Gap BUN Creatinine Estimated GFR POC Glucose Random Glucose Lactic Acid Calcium Prot Corrected Calcium Phosphorus Magnesium Iron TIBC % Saturation Total Bilirubin AST ALT Alkaline Phosphatase Ammonia Total Creatine Kinase Total Protein Albumin Lipase Urine Color Ol[place] Urine Clarity Clear Urine pH 6.0 Ur Specific [place] 1.011 Urine Protein Negative Urine Glucose (UA) Negative Urine Ketones Negative Urine Occult Blood Negative Urine Nitrate Negative Urine Bilirubin Moderate H Urine Ictotest Positive H Urine Urobilinogen 4 or greater Ur Leukocyte Esterase Negative Urine RBC 1 Urine WBC 1 Ur Squamous Epith Cells 1 Urine Bacteria Occasional H Hyaline Casts 1 Urine Mucus Few H Micro UA Comment Cath-culture ind Ur Microscopic Review Not Reportable Urine Culture Comments Cath-cult indicated Urine Eosinophils Ur Random Creatinine 40 Ur Random Sodium 41 Peritoneal RBC [place] Nuc Cells [place] Neutrophils [place] Lymphocytes Peritoneal Monocytes [place] Mesothelial Peritoneal Plasma Cell Peritoneal Other Cells Nasal Screen MRSA (PCR) Urine Opiates Screen Acetaminophen Ur Barbiturates Screen Ur Amphetamines Screen U Benzodiazepines Scrn Urine Cocaine Screen U Cannabinoids Screen Serum Alcohol Blood Type Antibody Screen MTS Gel Crossmatch Blood Bank Comment Bld Prod Order Comment 01/28/18 01/28/18 01/28/18 06:05 06:20 06:20 WBC 13.8 H RBC 2.70 L Hgb 8.6 L Hct 24.2 L MCV 89.9 MCH 32.0 MCHC 35.6 RDW 18.8 H Plt Count 85 L MPV 8.2 Prelim Diff (Auto) Slide review pending Neut % (Auto) 80.9 H Lymph % (Auto) 9.0 [place] % (Auto) 9.6 H Eos % (Auto) 0.4 Baso % (Auto) 0.1 Neut # (Auto) 11.2 H Lymph # (Auto) 1.2 [place] # (Auto) 1.3 H Eos # (Auto) 0.1 Baso # (Auto) 0.0 WBC Differential . Diff Scan Auto diff confirmed Differential Comment . Toxic Granulation Platelet Estimate Platelet Morphology Ovalocytes [place] Cells PT INR APTT Fibrinogen Puncture Site Patient Temperature O2 Saturation ABG pH ABG pCO2 ABG pO2 ABG HCO3 ABG O2 Content ABG Base Excess ABG Methemoglobin Som Test Hemoglobin Carboxyhemoglobin O2 Delivery Device Liter Flow Critical Value Sodium 144 Potassium 2.5 L* Chloride 104 Carbon Dioxide 29.6 Anion Gap 10 BUN 29 H Creatinine 1.63 H Estimated GFR 34 L POC Glucose Random Glucose 106 Lactic Acid Calcium 7.3 L* Prot Corrected Calcium 8.0 L Phosphorus 1.7 L Magnesium 2.0 Iron TIBC % Saturation Total Bilirubin 29.1 H AST 84 H ALT 34 Alkaline Phosphatase 134 H Ammonia Total Creatine Kinase Total Protein 5.8 L Albumin 2.4 L D Lipase Urine Color Urine Clarity Urine pH Ur Specific [place] Urine Protein Urine Glucose (UA) Urine Ketones Urine Occult Blood Urine Nitrate Urine Bilirubin Urine Ictotest Urine Urobilinogen Ur Leukocyte Esterase Urine RBC Urine WBC Ur Squamous Epith Cells Urine Bacteria Hyaline Casts Urine Mucus Micro UA Comment Ur Microscopic Review Urine Culture Comments Urine Eosinophils Ur Random Creatinine Ur Random Sodium Peritoneal RBC [place] Nuc Cells [place] Neutrophils [place] Lymphocytes Peritoneal Monocytes [place] Mesothelial Peritoneal Plasma Cell Peritoneal Other Cells Nasal Screen MRSA (PCR) Urine Opiates Screen Neg Acetaminophen Ur Barbiturates Screen Neg Ur Amphetamines Screen Neg U Benzodiazepines Scrn Neg Urine Cocaine Screen Pos H U Cannabinoids Screen Neg Serum Alcohol Blood Type Antibody Screen MTS Gel Crossmatch Blood Bank Comment Bld Prod Order Comment 01/28/18 01/28/18 01/28/18 06:20 06:20 06:20 WBC RBC Hgb Hct MCV MCH MCHC RDW Plt Count MPV Prelim Diff (Auto) Neut % (Auto) Lymph % (Auto) [place] % (Auto) Eos % (Auto) Baso % (Auto) Neut # (Auto) Lymph # (Auto) [place] # (Auto) Eos # (Auto) Baso # (Auto) WBC Differential Diff Scan Differential Comment Toxic Granulation Platelet Estimate Platelet Morphology Ovalocytes [place] Cells PT INR APTT Fibrinogen Puncture Site Patient Temperature O2 Saturation ABG pH ABG pCO2 ABG pO2 ABG HCO3 ABG O2 Content ABG Base Excess ABG Methemoglobin Som Test Hemoglobin Carboxyhemoglobin O2 Delivery Device Liter Flow Critical Value Sodium Potassium Chloride Carbon Dioxide Anion Gap BUN Creatinine Estimated GFR POC Glucose Random Glucose Lactic Acid 1.9 Calcium Prot Corrected Calcium Phosphorus Magnesium Iron 164 TIBC 182 L % Saturation 90.1 H Total Bilirubin AST ALT Alkaline Phosphatase Ammonia 180 H Total Creatine Kinase Total Protein Albumin Lipase Urine Color Urine Clarity Urine pH Ur Specific [place] Urine Protein Urine Glucose (UA) Urine Ketones Urine Occult Blood Urine Nitrate Urine Bilirubin Urine Ictotest Urine Urobilinogen Ur Leukocyte Esterase Urine RBC Urine WBC Ur Squamous Epith Cells Urine Bacteria Hyaline Casts Urine Mucus Micro UA Comment Ur Microscopic Review Urine Culture Comments Urine Eosinophils Ur Random Creatinine Ur Random Sodium Peritoneal RBC [place] Nuc Cells [place] Neutrophils [place] Lymphocytes Peritoneal Monocytes [place] Mesothelial Peritoneal Plasma Cell Peritoneal Other Cells Nasal Screen MRSA (PCR) Urine Opiates Screen Acetaminophen Ur Barbiturates Screen Ur Amphetamines Screen U Benzodiazepines Scrn Urine Cocaine Screen U Cannabinoids Screen Serum Alcohol Blood Type Antibody Screen [employer] Gel [place] Blood Bank Comment Bld Prod Order Comment 01/28/18 01/28/18 01/29/18 09:50 23:46 04:36 WBC RBC Hgb 9.0 L 9.1 L 9.1 L Hct MCV MCH MCHC RDW Plt Count MPV Prelim Diff (Auto) Neut % (Auto) Lymph % (Auto) [place] % (Auto) Eos % (Auto) Baso % (Auto) Neut # (Auto) Lymph # (Auto) [place] # (Auto) Eos # (Auto) Baso # (Auto) WBC Differential Diff Scan Differential Comment Toxic Granulation Platelet Estimate Platelet Morphology Ovalocytes [place] Cells PT INR APTT Fibrinogen Puncture Site Patient Temperature O2 Saturation ABG pH ABG pCO2 ABG pO2 ABG HCO3 ABG O2 Content ABG Base Excess ABG Methemoglobin Som Test Hemoglobin Carboxyhemoglobin O2 Delivery Device Liter Flow Critical Value Sodium Potassium Chloride Carbon Dioxide Anion Gap BUN Creatinine Estimated GFR POC Glucose Random Glucose Lactic Acid Calcium Prot Corrected Calcium Phosphorus Magnesium Iron TIBC % Saturation Total Bilirubin AST ALT Alkaline Phosphatase [place]mon[place] Total Creatine Kinase Total Protein Albumin Lipase Urine Color Urine Clarity Urine pH Ur Specific [place] Urine Protein Urine Glucose (UA) Urine Ketones Urine Occult Blood Urine Nitrate Urine Bilirubin Urine Ictotest Urine Urobilinogen Ur Leukocyte Esterase Urine RBC Urine WBC Ur Squamous Epith Cells Urine Bacteria Hyaline Casts Urine Mucus Micro UA Comment Ur Microscopic Review Urine Culture Comments Urine Eosinophils Ur Random Creatinine Ur Random Sodium Peritoneal RBC [place] Nuc Cells [place] Neutrophils [place] Lymphocytes Peritoneal Monocytes [place] Mesothelial Peritoneal Plasma Cell Peritoneal Other Cells Nasal Screen MRSA (PCR) Urine Opiates Screen Acetaminophen Ur Barbiturates Screen Ur Amphetamines Screen U Benzodiazepines Scrn Urine Cocaine Screen U Cannabinoids Screen Serum Alcohol Blood Type Antibody Screen [employer] Gel Crossmatch Blood Bank Comment Bld Prod Order Comment 01/29/18 01/29/18 01/29/18 04:36 09:05 09:05 WBC 11.0 RBC 2.88 L Hgb 9.2 L Hct 26.5 L MCV 91.8 MCH 32.0 MCHC 34.8 RDW 19.6 H Plt Count 96 L MPV 8.1 Prelim Diff (Auto) Slide review pending Neut % (Auto) 78.9 H Lymph % (Auto) 9.9 [place] % (Auto) 10.8 H Eos % (Auto) 0.3 Baso % (Auto) 0.1 Neut # (Auto) 8.7 H Lymph # (Auto) 1.1 [place] # (Auto) 1.2 H Eos # (Auto) 0.0 Baso # (Auto) 0.0 WBC Differential . Diff Scan Auto diff confirmed Differential Comment . Toxic Granulation 1+ H Platelet Estimate Low L Platelet Morphology Normal Ovalocytes 1+ H [place] Cells 1+ H PT INR APTT Fibrinogen Puncture Site Patient Temperature O2 Saturation ABG pH ABG pCO2 ABG pO2 ABG HCO3 ABG O2 Content ABG Base Excess ABG Methemoglobin Som Test Hemoglobin Carboxyhemoglobin O2 Delivery Device Liter Flow Critical Value Sodium 148 H Potassium 2.6 L* Chloride 111 H Carbon Dioxide 26.8 Anion Gap 10 BUN 25 H Creatinine 1.31 H Estimated GFR 43 L POC Glucose Random Glucose 97 Lactic Acid Calcium 8.4 L D Prot Corrected Calcium Phosphorus Magnesium Iron TIBC % Saturation Total Bilirubin 29.5 H AST 95 H ALT 38 Alkaline Phosphatase 156 H Ammonia 55 H Total Creatine Kinase Total Protein 6.3 L Albumin 2.3 L Lipase Urine Color Urine Clarity Urine pH Ur Specific [place] Urine Protein Urine Glucose (UA) Urine Ketones Urine Occult Blood Urine Nitrate Urine Bilirubin Urine Ictotest Urine Urobilinogen Ur Leukocyte Esterase Urine RBC Urine WBC Ur Squamous Epith Cells Urine Bacteria Hyaline Casts Urine Mucus Micro UA Comment Ur Microscopic Review Urine Culture Comments Urine Eosinophils Ur Random Creatinine Ur Random Sodium Peritoneal RBC [place] Nuc Cells [place] Neutrophils [place] Lymphocytes Peritoneal Monocytes [place] Mesothelial Peritoneal Plasma Cell Peritoneal Other Cells Nasal Screen MRSA (PCR) Urine Opiates Screen Acetaminophen Ur Barbiturates Screen Ur Amphetamines Screen U Benzodiazepines Scrn Urine Cocaine Screen U Cannabinoids Screen Serum Alcohol Blood Type Antibody Screen MTS Gel Crossmatch Blood Bank Comment Bld Prod Order Comment 01/30/18 01/30/18 03:20 05:28 WBC RBC Hgb Hct MCV MCH MCHC RDW Plt Count MPV Prelim Diff (Auto) Neut % (Auto) Lymph % (Auto) [place] % (Auto) Eos % (Auto) Baso % (Auto) Neut # (Auto) Lymph # (Auto) [place] # (Auto) Eos # (Auto) Baso # (Auto) WBC Differential Diff Scan Differential Comment Toxic Granulation Platelet Estimate Platelet Morphology Ovalocytes [place] Cells PT INR APTT Fibrinogen Puncture Site Patient Temperature O2 Saturation ABG pH ABG pCO2 ABG pO2 ABG HCO3 ABG O2 Content ABG Base Excess ABG Methemoglobin Som Test Hemoglobin Carboxyhemoglobin O2 Delivery Device Liter Flow Critical Value Sodium Potassium 3.6 D Chloride Carbon Dioxide Anion Gap BUN Creatinine Estimated GFR POC Glucose Random Glucose Lactic Acid Calcium Prot Corrected Calcium Phosphorus Magnesium Iron TIBC % Saturation Total Bilirubin AST ALT Alkaline Phosphatase Ammonia 42 H Total Creatine Kinase Total Protein Albumin Lipase Urine Color Urine Clarity Urine pH Ur Specific [place] Urine Protein Urine Glucose (UA) Urine Ketones Urine Occult Blood Urine Nitrate Urine Bilirubin Urine Ictotest Urine Urobilinogen Ur Leukocyte Esterase Urine RBC Urine WBC Ur Squamous Epith Cells Urine Bacteria Hyaline Casts Urine Mucus Micro UA Comment Ur Microscopic Review Urine Culture Comments Urine Eosinophils Ur Random Creatinine Ur Random Sodium Peritoneal RBC [place] Nuc Cells [place] Neutrophils [place] Lymphocytes Peritoneal Monocytes [place] Mesothelial Peritoneal Plasma Cell Peritoneal Other Cells Nasal Screen MRSA (PCR) Urine Opiates Screen Acetaminophen Ur Barbiturates Screen Ur Amphetamines Screen U Benzodiazepines Scrn Urine Cocaine Screen U Cannabinoids Screen Serum Alcohol Blood Type Antibody Screen MTS Gel Crossmatch Blood Bank Comment Bld Prod Order Comment Result Diagrams: 01/29/18 09:05 01/30/18 03:20 Microbiology: Microbiology 01/28/18 06:05 Urine Culture - Preliminary Catheterized Urine No growth in 24 hours 01/28/18 05:40 Gram Stain - Final Fluid - Peritoneal fluid Body Fluid Culture - Preliminary No growth in 24 hours 01/27/18 19:15 Aerobic Blood Culture - Preliminary Blood - Peripheral No growth in 2 days Anaerobic Blood Culture - Preliminary No growth in 2 days 01/27/18 19:15 Aerobic Blood Culture - Preliminary Blood - Peripheral No growth in 2 days Anaerobic Blood Culture - Preliminary No growth in 2 days 01/28/18 03:05 Influenza Types A,B Antigen - Final Nasal Wash Negative for FLU A and B antigen Infection due to influenza A or B cannot be ruled out since the antigen present in the sample may be below the detection limit of the test. Imaging: Abdomen Ultrasound 01/27/18 16:16 CONCLUSION: Moderate ascites. Chest X-Ray 01/27/18 16:16 CONCLUSION: Minimal focal patchiness is noted within the left lung base consistent with possible developing infiltrate. Clinical correlation is recommended. Head CT 01/27/18 16:16 CONCLUSION: No acute intracranial abnormality demonstrated. . Chest X-Ray 01/27/18 22:22 CONCLUSION: 1. Orogastric tube and right IJ line placement as above. 2. Mild parenchymal consolidation of the left base not significantly changed. Procedures: 01/27 - RIJ 01/28 - paracentesis Patient/Family Conference Present at Family Conference: Spike العراقي, son Stanislaw, son Megan, sister Lobito Gonzalez, JARRED Family Conference Location: Bedside Issues Discussed: * Palliative care role, purpose, approach * Additional medical, psychosocial, and spiritual history * Patient/family understanding of the current medical problems * Patient/family understanding of prognosis; they understand that due to her lifestyle choices she is no longer a candidate for further treatment for her liver * Patients goals of care as best understood from advance directives and/or conversations and/or values * Current medical treatment options and benefits/burdens of those options * Likely scenarios comparing ongoing aggressive care with a transition to comfort measures only; discussed transition to hospice * Questions answered to the best of my ability * Palliative care contact information provided In summary, Ms. Murray is currently unable to participate in her own healthcare decisions. Two of her 3 sons, Spike and Bronson along with her sister Megan are at bedside. They wish to de-escalate care at this point and transition to comfort measures only. Hospice consult was placed and the family plans to meet with [facility] later today. Case discussed with Dr. Farias (critical care) and portable pinch riveter and Plan - Disease Oriented Problem List (1) Encephalopathy - Symptom Scale (1) Pain 0-10 Scale: Unable to quantify (2) Anxiety 0-10 Scale: Unable to quantify Pertinent Non-Medical Issues: Psychosocial: The patient is and her ex- is recently . She has 3 adult sons though is only in contact with her son Spike العراقي Spiritual: Congregation Legal:The patient's ex-, Saeid Murray is reportedly recently from cardiac arrest. The patient has 3 adult sons, though is estranged from 2 of them. She was able to verbally states she would like her son Spike العراقي to be her decision maker on 01/29/18. Today, 2 of her 3 sons are present and in agreement for decision-making purposes. Ethical issues impacting care: There are currently no known ethical issues impacting Ms. Murray's care at this time. Important Contacts: Spike العراقي, son/[id number] Prognosis: If the patient was a candidate for aggressive treatments (such TIPS), there is a possibility she would have a longer life expectancy. Given her current lifestyle choices and progressive disease progression, the patient is at further risk for decompensation and . Code Status: No Code DNR Plan: * LEGAL DECISION MAKER -in light of not having of written living will, healthcare decision making falls to the majority of the patient's living sons per [place] statutes. Yesterday the patient was able to name her son Spike العراقي her decision maker with Dr. Chatterjee on 01/29/18 but there was nothing put in writing. Today, 2 of her 3 sons are present and in agreement for decision -making purposes. * GOALS - Ms. Murray is currently unable to participate in her own healthcare decisions. Two of her 3 sons, Spike and Bronson along with her sister Megan are at bedside. They wish to de-escalate care at this point and transition to comfort measures only. Hospice consult was placed and the family plans to meet with [facility] later today. * CODE STATUS - DNR, the patient was made no code yesterday as per her stated wishes with Dr. Chatterjee * SYMPTOMS - Anxiety - Appears slightly anxious now. She is picking at her clothing and writhing around the bed. She is currently restrained. Will add low dose of Ativan (0.5mg) as well as Haldol for any anxiety and/or hallucinations the patient may have. Will also have Pena placed as the patient has been having frequent urinary retention which could also be adding to her agitation. Pain - they patient currently denies pain but does wince at times during physical exam. In light of her current renal function, will use low dose of hydromorphone Q4h to ensure patient comfort. * Palliative care will continue to follow during hospital course as condition evolves, to assist patient/decision maker with understanding of medical conditions, weighing benefits/burdens of treatment options, for clarification of goals of treatment. Additionally will assist with any symptoms of palliative concern. Appreciation Thank you for the opportunity to participate in the care of Debra Murray. Attestation Attestation: To help prompt me to consider important information that might be impacting today's encounter and assessment, information from prior notes written by myself or my colleagues may have been "brought forward" into today's note. My signature on this note, however, is an attestation that I personally performed the exam, history, and/or decision-making noted today, and, unless otherwise indicated, the interactions with patient, family, and staff as well as the review of records all occurred today. I also attest that the listed assessment and stated plan reflect my best clinical judgment today based on the combination of historical information, prior notes, and today's exam/ interactions. When time spent is documented, it refers only to time spent today by the signer, or if indicated, combined time spent today by collaborating physician/nurse practitioner.
--- NOTE | 2018-01-30 10:49 | P.PNCC ---
Subjective Subjective Remarks/Hospital Course: Hospital Course: History was obtained through discussion with ED physician and review of EMR. Patient is not able to provide history. I attempted to contact her son, Kenneth العراقي, and there was no answer. I also attempted to contact her ex-, Saeid Murray, and there was no answer. According to [facility] her ex- was recently transported for cardiac arrest. It is unknown whether he . 47-year-old female with past medical history of alcohol dependence, cirrhosis, chronic hepatitis C, gastritis and portal hypertensive gastropathy, prior esophageal varices band ligation x2 in 2016, cocaine abuse. She presented to [facility] emergency department via [facility] with altered mental status and jaundice. She had a melena BM. No vomiting. Her Hgb is 7.6. Prior was 9.1 on 01/05. Her INR is 2.3. She is receiving 2 units PRBC per ED physician and has been given octreotide 100 mcg IV and started on protonix drip. I am ordering vitamin K 10 mg and 2 units FFP. Temp is 96.9, sinus tach in 120s, BP 114/62. She has leukocytosis 20k and has been treated empirically for sepsis with zosyn and vancomycin. She has moderate ascites. She is at risk for SBP, will do diagnostic paracentesis after coagulopathy addressed. She also is lethargic with ammonia level 137. She has received lactulose enema. CT brain is pending. Creatinine is 2.11 with most recent range being about 1.1- 1.42. Last EGD 01/02/18 showed portal hypertensive gastropathy and erythematous gastritis. There were no varices at that time. In she had gastric ulcers that did not require intervention. She has had esophageal varices with banding back in 2016. Subjective: 01/28: no improvements. continues with active melena. have discussed the case with Dr. Aldana at length: last 2 scopes recently have been portal gastropathy without any interveneable lesions. She would not be a candidate for TIPS due to her severe hepatic encephalopathy. she has not been compliant with optimal medical therapy for portal hypertension, and continues to use cocaine. She is end-stage, and Dr. Aldana and I agree that Hospice is most appropriate. I have spoken with a personal friend, Crow Steward ) who states that the patient's ex- Saeid Murray who usually acts as her medical decision maker last week (Crow has Saeid's phone which is his contact number). Ms. Murray has 3 adult sons: Kenneth Small ([phone] ), Stanislaw, and Mateo. I have spoken with Kenneth: Stanislaw and Mateo are apparently estranged from the patient, and it may be difficult to contact them or have them participate in the medical decision-making of the patient. Kenneth states that his mother told him she "never wanted to be hooked up to machines." I explained that this was likely a terminal and fatal GI bleed, and with her liver failure, even if she did not have a GI bleed, her life expectancy would be less than 3 months based on her current MELD score. He agrees with our assessment that Hospice is appropriate. In addition to this, although we do not have any scanned Advanced Directives available to me from prior admissions, I have three separate nursing documentation from prior admissions, all stating the patient wished to be DNR (11/04/15- Samia Dumas, 04/08- Joan Gillespie, 02/21/14- Leah Ac). I am currently awaiting to hear from Stanislaw or Mateo. The patient remains encephalopathic and unable to participate in goals of care discussions, and continues to have active melena. 01/29: remains encephalopathic although more awake today. hgb stable for now. no other changes. ammonia downtrending, but patient confused. family still deciding what ultimate disposition should be and how aggressive they want to be. patient oriented x 2 this morning. does state that she "just wants to be comfortable." when asked about code status if she gets sicker, she states "just let me ." and when I asked if she knows what will happen if we don't do CPR or put her on a breathing machine if she gets sicker, she states "I will be ." I asked her about hospice and comfort measures and she states "I want to be comfortable." but she also states "ask kenneth, my son." She did tell me today that if she cannot make medical decisions for herself, she wants Kenneth her oldest son to make medical decisions for her. 01/30: Worsening encephalopathy as per RN, now only able to mumble but is not coherent. Patient's extended family is at bedside and would like to talk to the palliative care service regarding transitioning the patient to hospice. Her son Kenneth agrees on no escalation of care in the interim. Objective Vital Signs / I&O: Vital Signs 01/29/18 11:30 01/29/18 11:45 01/29/18 12:00 Temperature Pulse Rate 107 H 105 H 107 H Respiratory Rate 23 26 H 19 Blood Pressure 162/92 H 173/87 H 161/78 H Pulse Oximetry 01/29/18 12:16 01/29/18 12:31 01/29/18 12:46 Temperature Pulse Rate 109 H 108 H 105 H Respiratory Rate 29 H 27 H 17 Blood Pressure 163/72 H 144/65 H 140/65 Pulse Oximetry 01/29/18 13:00 01/29/18 13:15 01/29/18 13:31 Temperature Pulse Rate 105 H 106 H 108 H Respiratory Rate 23 25 H 39 H Blood Pressure 158/73 H 137/73 123/69 Pulse Oximetry 01/29/18 13:45 01/29/18 14:00 01/29/18 14:16 Temperature Pulse Rate 105 H 105 H 105 H Respiratory Rate 19 22 19 Blood Pressure 129/73 132/83 143/76 H Pulse Oximetry 01/29/18 14:30 01/29/18 14:45 01/29/18 15:00 Temperature Pulse Rate 103 H 105 H 105 H Respiratory Rate 19 23 20 Blood Pressure 138/66 144/82 H Pulse Oximetry 01/29/18 15:01 01/29/18 15:16 01/29/18 15:31 Temperature Pulse Rate 105 H 106 H 106 H Respiratory Rate 22 21 20 Blood Pressure 126/79 144/78 H 150/77 H Pulse Oximetry 01/29/18 15:45 01/29/18 16:00 01/29/18 16:01 Temperature Pulse Rate 108 H 105 H 106 H Respiratory Rate 21 16 29 H Blood Pressure 142/67 H 146/86 H Pulse Oximetry 01/29/18 16:15 01/29/18 16:30 01/29/18 16:46 Temperature Pulse Rate 105 H 108 H 106 H Respiratory Rate 18 21 20 Blood Pressure 150/78 H 157/90 H 154/87 H Pulse Oximetry 01/29/18 17:00 01/29/18 17:15 01/29/18 17:30 Temperature Pulse Rate 109 H 112 H 109 H Respiratory Rate 16 20 16 Blood Pressure 155/85 H 158/77 H 152/69 H Pulse Oximetry 01/29/18 17:45 01/29/18 18:00 01/29/18 18:15 Temperature Pulse Rate 107 H 108 H 108 H Respiratory Rate 22 21 27 H Blood Pressure 145/80 H 135/82 140/70 Pulse Oximetry 01/29/18 18:30 01/29/18 18:45 01/29/18 19:00 Temperature Pulse Rate 108 H 108 H 109 H Respiratory Rate 18 21 29 H Blood Pressure 134/70 144/83 H Pulse Oximetry 01/29/18 19:01 01/29/18 19:15 01/29/18 19:30 Temperature Pulse Rate 109 H 113 H 109 H Respiratory Rate 31 H 31 H 29 H Blood Pressure 154/67 H 148/83 H 148/78 H Pulse Oximetry 01/29/18 19:45 01/29/18 20:00 01/29/18 20:15 Temperature 98.3 F Pulse Rate 108 H 110 H 108 H Respiratory Rate 34 H 27 H 19 Blood Pressure 135/63 139/77 137/65 Pulse Oximetry 99 01/29/18 20:30 01/29/18 20:45 01/29/18 21:00 Temperature Pulse Rate 109 H 111 H 111 H Respiratory Rate 17 21 23 Blood Pressure 136/71 128/77 131/75 Pulse Oximetry 01/29/18 21:15 01/29/18 21:39 01/29/18 21:45 Temperature Pulse Rate 115 H 109 H 109 H Respiratory Rate 22 26 H 34 H Blood Pressure 132/76 170/70 H 134/59 L Pulse Oximetry 97 95 97 01/29/18 22:00 01/29/18 22:15 01/29/18 22:30 Temperature Pulse Rate 109 H 109 H 109 H Respiratory Rate 21 21 22 Blood Pressure 147/76 H 154/76 H 152/78 H Pulse Oximetry 98 97 97 01/29/18 22:45 01/29/18 23:00 01/30/18 00:00 Temperature 98.4 F Pulse Rate 111 H 112 H 111 H Respiratory Rate 21 23 17 Blood Pressure 148/72 H 138/80 Pulse Oximetry 97 97 98 01/30/18 00:27 01/30/18 00:31 01/30/18 01:00 Temperature Pulse Rate 113 H 111 H 110 H Respiratory Rate 33 H 24 19 Blood Pressure 136/87 130/63 139/65 Pulse Oximetry 97 95 96 01/30/18 01:16 01/30/18 01:30 01/30/18 01:45 Temperature Pulse Rate 110 H 111 H 113 H Respiratory Rate 23 22 18 Blood Pressure 147/70 H 153/83 H 149/74 H Pulse Oximetry 99 98 97 01/30/18 02:00 01/30/18 02:15 01/30/18 02:30 Temperature Pulse Rate 113 H 114 H 113 H Respiratory Rate 21 20 17 Blood Pressure 166/82 H 173/90 H 167/81 H Pulse Oximetry 98 98 98 01/30/18 02:45 01/30/18 03:00 01/30/18 03:17 Temperature Pulse Rate 112 H 112 H 113 H Respiratory Rate 22 18 21 Blood Pressure 155/76 H 157/76 H 139/82 Pulse Oximetry 100 98 98 01/30/18 03:30 01/30/18 03:45 01/30/18 04:00 Temperature 98.2 F Pulse Rate 115 H 115 H 115 H Respiratory Rate 20 24 20 Blood Pressure 155/80 H 165/77 H 160/80 H Pulse Oximetry 97 98 98 01/30/18 04:15 01/30/18 04:31 01/30/18 04:45 Temperature Pulse Rate 113 H 117 H 115 H Respiratory Rate 21 27 H 27 H Blood Pressure 149/73 H 160/79 H 156/77 H Pulse Oximetry 98 98 98 01/30/18 05:00 01/30/18 05:15 01/30/18 05:30 Temperature Pulse Rate 114 H 113 H 113 H Respiratory Rate 22 29 H 25 H Blood Pressure 160/81 H 155/74 H 159/74 H Pulse Oximetry 98 98 98 01/30/18 05:45 01/30/18 06:00 01/30/18 06:15 Temperature Pulse Rate 114 H 111 H 113 H Respiratory Rate 24 18 33 H Blood Pressure 154/71 H 162/74 H 168/80 H Pulse Oximetry 98 100 100 01/30/18 06:30 01/30/18 06:45 01/30/18 07:00 Temperature Pulse Rate 113 H 114 H 112 H Respiratory Rate 30 H 28 H 22 Blood Pressure 160/82 H 152/77 H 159/74 H Pulse Oximetry 99 100 100 01/30/18 07:15 01/30/18 08:00 Temperature Pulse Rate 113 H Respiratory Rate 24 Blood Pressure 163/75 H Pulse Oximetry 100 100 Intake & Output 01/29/18 01/30/18 01/30/18 18:59 06:59 18:59 Intake Total 800 / 800 275 / 275 550 / 550 Output Total 450 / 450 500 / 500 Balance 350 / 350 -225 / -225 550 / 550 Weight 62.5 kg Intake: IV 800 / 800 275 / 275 550 / 550 SandoSTATIN Inj 500 MCG In NS 500 / 500 500 / 500 Inj 500 ML @ 25 MCG/HR 25.02 mls/hr IV.CONT .Q20H1M MARGARETTE Rx#: [id number] Protonix Inj 80 MG In NS Inj 100 / 100 100 / 100 100 ML @ 10 mls/hr IV.CONT CONT MARGARETTE Rx#:[id number] Zosyn 3.375 GM Premix 50 ML @ 100 / 100 50 / 50 50 / 50 100 mls/hr IV.SIG Q6HR MARGARETTE Rx#: [id number] KCl 40 mEq Premix Inj 40 meq In 100 / 100 100 / 100 100 ml @ 25 mls/hr IV.SIG Q2H PRN Rx#:[id number] Output: Urine 450 / 450 500 / 500 Other: # Voids 1 3 Date of Last Bowel Movement 01/29/18 01/30/18 # Bowel Movements 2 1 Result Diagrams: 01/29/18 09:05 01/30/18 03:20 Objective Remarks: GENERAL: Ill-appearing female, appears confused SKIN: Warm and dry, jaundiced. HEAD: Atraumatic. Normocephalic. EYES: Pupils equal and round, reactive bilaterally. Significant scleral icterus. ENT: No nasal bleeding or discharge. Mucous membranes pink NECK: Trachea midline. CARDIOVASCULAR: Tachycardic, regular, sinus tach on the monitor. RESPIRATORY: Diminished at bases bilaterally GASTROINTESTINAL: Abdomen soft, mildly distended, non-tender MUSCULOSKELETAL: Extremities without clubbing, cyanosis, or edema. No obvious deformities. NEUROLOGICAL: Appears very confused. Hums/ mumbles but is otherwise non-verbal, does not follow commands, occasionally nods/ shakes head to yes/ no questions Assessment and Plan - Assessment and Plan Plan: Assessment: 47yF with acute gastrointestinal bleeding likely secondary to coagulopathy from end-stage liver disease. As per Dr. Chatterjee, patient expressed that she "just wants to be made comfortable" and did not want to be put on life support, have chest compressions or defibrillation, and her son Kenneth agrees that this is consistent with her wishes. Given her progressive liver failure in the setting of cirrhosis and continued polysubstance abuse, it is unlikely that she will recover. Even with aggressive medical treatment, her encephalopathy is persistent and worsening. I explained to the patient's family (2 adult sons and sister) that she is appropriate for hospice evaluation. Her son Kenneth agrees and would like to speak with the palliative care/ hospice service to discuss options. NEURO: Acute hepatic encephalopathy- persistent, worsening Alcohol dependence History of polysubstance abuse including cocaine EtOH and Tylenol levels normal on admission. CT brain 01/27 negative Ammonia is downtrending (42 today). Lactulose 30 mL's 4 times daily. Rifaximin 550 mg twice daily. Thiamine/multivitamin/folic acid RESP: Tobacco abuse Currently on room air CV: Monitor vitals GI: End-stage liver disease Cirrhosis, Admission MELD 35 (predicted 3 month survival 47%) Moderate ascites with most recent paracentesis 01/28, Child-Mendez class C Chronic hepatitis C Alcoholic hepatitis Has been treated for alcoholic hepatitis per GI. discriminant function has been elevated, currently greater than 80. Will continue prednisone as cannot give pentoxifylline down the tube and she is unable to take p.o. currently. Continue Protonix drip, Hg stable around 9 overnight Diagnostic paracentesis on 01/28. Hold lasix/spironolactone at this time. Inderal when stabilized. Chronic moderate protein energy malnutrition Enteral tube feeds when diet advancement appropriate from GI standpoint. FEN/RENAL: Acute kidney injury, improving Hypokalemia Hepatorenal vs pre-renal dehydration vs ATN secondary to sepsis/acute blood loss Fe urea pending No eosinophils seen on UA, CPK normal Bladder scanning and I/O cath prn. Lyte repletion PRN ID: [id number] Sepsis Healthcare associated pneumonia versus aspiration Chest x-ray with left lower lobe infiltrate. Continue zosyn. Blood culture and para specimen show no growth to date. HEME: Acute blood loss overlying chronic anemia Coagulopathy secondary to end-stage liver disease Thrombocytopenia s/p vitamin K supplementation Transfuse platelets as needed for count less than 50 with active bleeding, trend coags Serial hemoglobin every 6 hours and transfuse as indicated for hemoglobin less than 7 or hemodynamic instability ENDO: Euglycemic PROPH: SCDs for DVT prophylaxis. Avoid pharmacologic DVT prophylaxis at this time as she is coagulopathic. Protonix drip as per above. ACCESS: Right IJ central venous line placed 01/27 #3. Patient is critically ill with ESLD, hepatic encephalopathy and multiorgan dysfunction. She is high at high risk for further decompensation and . Counseling/ Coordination of Care: Total critical care time: 45 minutes. This includes examining the patient, gathering history from someone other than the patient (i.e., chart review), discussing the patient's care with other providers, ordering and interpreting laboratory studies, re-evaluation at frequent intervals, and documentation. All critical care time is separate and exclusive of procedures, teaching, and patient/ family updates. Code Status: DNR/ DNI
[2018-01-30] MEDS ORDERED: HYDROmorphone PF Inj 2 MG/ML Vial IV.PUSH PRN (12:15)
[2018-01-30] MEDS: HYDROmorphone PF Inj 2 MG/ML Vial IV.PUSH PRN ×2 (18:57→22:31)
--- NOTE | 2018-01-30 19:03 | P.DS ---
Date of admission: 01/27/18 19:07 Primary care physician: UNKNOWN Brief History from admission: History was obtained through discussion with ED physician and review of EMR. Patient is not able to provide history. I attempted to contact her son, Kenneth العراقي, and there was no answer. I also attempted to contact her ex-, Saeid Murray, and there was no answer. According to [facility] her ex- was recently transported for cardiac arrest. It is unknown whether he . 47-year-old female with past medical history of alcohol dependence, cirrhosis, chronic hepatitis C, gastritis and portal hypertensive gastropathy, prior esophageal varices band ligation x2 in 2016, cocaine abuse. She presented to [facility] emergency department via [facility] with altered mental status and jaundice. She had a melena BM. No vomiting. Her Hgb is 7.6. Prior was 9.1 on 01/05. Her INR is 2.3. She is receiving 2 units PRBC per ED physician and has been given octreotide 100 mcg IV and started on protonix drip. I am ordering vitamin K 10 mg and 2 units FFP. Temp is 96.9, sinus tach in 120s, BP 114/62. She has leukocytosis 20k and has been treated empirically for sepsis with zosyn and vancomycin. She has moderate ascites. She is at risk for SBP, will do diagnostic paracentesis after coagulopathy addressed. She also is lethargic with ammonia level 137. She has received lactulose enema. CT brain is pending. Creatinine is 2.11 with most recent range being about 1.1- 1.42. Last EGD 01/02/18 showed portal hypertensive gastropathy and erythematous gastritis. There were no varices at that time. In she had gastric ulcers that did not require intervention. She has had esophageal varices with banding back in 2016. Subjective: 01/28: no improvements. continues with active melena. have discussed the case with Dr. Aldana at length: last 2 scopes recently have been portal gastropathy without any interveneable lesions. She would not be a candidate for TIPS due to her severe hepatic encephalopathy. she has not been compliant with optimal medical therapy for portal hypertension, and continues to use cocaine. She is end-stage, and Dr. Aldana and I agree that Hospice is most appropriate. I have spoken with a personal friend, Crow Steward ) who states that the patient's ex- Saeid Murray who usually acts as her medical decision maker last week (Crow has Saeid's phone which is his contact number). Ms. Murray has 3 adult sons: Kenneth Small ([phone] ), Stanislaw, and Mateo. I have spoken with Kenneth: Stanislaw and Mateo are apparently estranged from the patient, and it may be difficult to contact them or have them participate in the medical decision-making of the patient. Kenneth states that his mother told him she "never wanted to be hooked up to machines." I explained that this was likely a terminal and fatal GI bleed, and with her liver failure, even if she did not have a GI bleed, her life expectancy would be less than 3 months based on her current MELD score. He agrees with our assessment that Hospice is appropriate. In addition to this, although we do not have any scanned Advanced Directives available to me from prior admissions, I have three separate nursing documentation from prior admissions, all stating the patient wished to be DNR (11/04/15- Samia Dumas, 04/08- Joan Gillespie, 02/21/14- Leah Ac). I am currently awaiting to hear from Stanislaw or Mateo. The patient remains encephalopathic and unable to participate in goals of care discussions, and continues to have active melena. 01/29: remains encephalopathic although more awake today. hgb stable for now. no other changes. ammonia downtrending, but patient confused. family still deciding what ultimate disposition should be and how aggressive they want to be. patient oriented x 2 this morning. does state that she "just wants to be comfortable." when asked about code status if she gets sicker, she states "just let me ." and when I asked if she knows what will happen if we don't do CPR or put her on a breathing machine if she gets sicker, she states "I will be ." I asked her about hospice and comfort measures and she states "I want to be comfortable." but she also states "ask kneneth, my son." She did tell me today that if she cannot make medical decisions for herself, she wants Kenneth her oldest son to make medical decisions for her. 01/30: Worsening encephalopathy as per RN, now only able to mumble but is not coherent. Patient's extended family is at bedside and would like to transition the patient to hospice. An opportunity to ask questions was provided. DS: Diagnosis - Discharge Diagnosis (1) Acute GI bleeding Status: Resolved (2) Anemia Status: Chronic (3) Encephalopathy Status: Acute (4) Altered mental status Status: Acute (5) Portal hypertensive gastropathy Status: Acute (6) Hepatitis C, chronic Status: Acute (7) Liver failure Status: Chronic (8) Cirrhosis Status: Chronic DS: Summary Hospital Course: Hospital Course: History was obtained through discussion with ED physician and review of EMR. Patient is not able to provide history. I attempted to contact her son, Kenneth العراقي, and there was no answer. I also attempted to contact her ex-, Saeid Murray, and there was no answer. According to [facility] her ex- was recently transported for cardiac arrest. It is unknown whether he . 47-year-old female with past medical history of alcohol dependence, cirrhosis, chronic hepatitis C, gastritis and portal hypertensive gastropathy, prior esophageal varices band ligation x2 in 2015, cocaine abuse. She presented to [facility] emergency department via [facility] with altered mental status and jaundice. She had a melena BM. No vomiting. Her Hgb is 7.6. Prior was 9.1 on 01/05. Her INR is 2.3. She is receiving 2 units PRBC per ED physician and has been given octreotide 100 mcg IV and started on protonix drip. I am ordering vitamin K 10 mg and 2 units FFP. Temp is 96.9, sinus tach in 120s, BP 114/62. She has leukocytosis 20k and has been treated empirically for sepsis with zosyn and vancomycin. She has moderate ascites. She is at risk for SBP, will do diagnostic paracentesis after coagulopathy addressed. She also is lethargic with ammonia level 137. She has received lactulose enema. CT brain is pending. Creatinine is 2.11 with most recent range being about 1.1- 1.42. Last EGD 01/02/18 showed portal hypertensive gastropathy and erythematous gastritis. There were no varices at that time. In she had gastric ulcers that did not require intervention. She has had esophageal varices with banding back in 2016. Subjective: 01/28: no improvements. continues with active melena. have discussed the case with Dr. Aldana at length: last 2 scopes recently have been portal gastropathy without any interveneable lesions. She would not be a candidate for TIPS due to her severe hepatic encephalopathy. she has not been compliant with optimal medical therapy for portal hypertension, and continues to use cocaine. She is end-stage, and Dr. Aldana and I agree that Hospice is most appropriate. I have spoken with a personal friend, Crow Steward ) who states that the patient's ex- Saeid Murray who usually acts as her medical decision maker last week (Crow has Saeid's phone which is his contact number). Ms. Murray has 3 adult sons: Kenneth Small ([phone] ), Stanislaw, and Mateo. I have spoken with Kenneth: Stanislaw and Mateo are apparently estranged from the patient, and it may be difficult to contact them or have them participate in the medical decision-making of the patient. Kenneth states that his mother told him she "never wanted to be hooked up to machines." I explained that this was likely a terminal and fatal GI bleed, and with her liver failure, even if she did not have a GI bleed, her life expectancy would be less than 3 months based on her current MELD score. He agrees with our assessment that Hospice is appropriate. In addition to this, although we do not have any scanned Advanced Directives available to me from prior admissions, I have three separate nursing documentation from prior admissions, all stating the patient wished to be DNR (11/04/15- Samia Dumas, 04/08- Joan Gillespie, 02/21/14- Leah Ac). I am currently awaiting to hear from Stanislaw or Mateo. The patient remains encephalopathic and unable to participate in goals of care discussions, and continues to have active melena. 01/29: remains encephalopathic although more awake today. hgb stable for now. no other changes. ammonia downtrending, but patient confused. family still deciding what ultimate disposition should be and how aggressive they want to be. patient oriented x 2 this morning. does state that she "just wants to be comfortable." when asked about code status if she gets sicker, she states "just let me ." and when I asked if she knows what will happen if we don't do CPR or put her on a breathing machine if she gets sicker, she states "I will be ." I asked her about hospice and comfort measures and she states "I want to be comfortable." but she also states "ask kenneth, my son." She did tell me today that if she cannot make medical decisions for herself, she wants Kenneth her oldest son to make medical decisions for her. 01/30: Worsening encephalopathy as per RN, now only able to mumble but is not coherent. Patient's extended family is at bedside and would like to talk to the palliative care service regarding transitioning the patient to hospice. Her son Kenneth agrees on no escalation of care in the interim. - Time Spent with Patient Total time spent providing and/or coordinating discharge services: 25 minutes, which is separate from critical care time documented earlier today and is exclusive of family discussions, procedures, or teaching. Less than 30 minutes Exam Vital signs: Vital Signs 01/29/18 19:00 01/29/18 19:01 01/29/18 19:15 Temperature Pulse Rate 109 H 109 H 113 H Respiratory Rate 29 H 31 H 31 H Blood Pressure 154/67 H 148/83 H Pulse Oximetry 01/29/18 19:30 01/29/18 19:45 01/29/18 20:00 Temperature 98.3 F Pulse Rate 109 H 108 H 110 H Respiratory Rate 29 H 34 H 27 H Blood Pressure 148/78 H 135/63 139/77 Pulse Oximetry 99 01/29/18 20:15 01/29/18 20:30 01/29/18 20:45 Temperature Pulse Rate 108 H 109 H 111 H Respiratory Rate 19 17 21 Blood Pressure 137/65 136/71 128/77 Pulse Oximetry 01/29/18 21:00 01/29/18 21:15 01/29/18 21:39 Temperature Pulse Rate 111 H 115 H 109 H Respiratory Rate 23 22 26 H Blood Pressure 131/75 132/76 170/70 H Pulse Oximetry 97 95 01/29/18 21:45 01/29/18 22:00 01/29/18 22:15 Temperature Pulse Rate 109 H 109 H 109 H Respiratory Rate 34 H 21 21 Blood Pressure 134/59 L 147/76 H 154/76 H Pulse Oximetry 97 98 97 01/29/18 22:30 01/29/18 22:45 01/29/18 23:00 Temperature Pulse Rate 109 H 111 H 112 H Respiratory Rate 22 21 23 Blood Pressure 152/78 H 148/72 H 138/80 Pulse Oximetry 97 97 97 01/30/18 00:00 01/30/18 00:27 01/30/18 00:31 Temperature 98.4 F Pulse Rate 111 H 113 H 111 H Respiratory Rate 17 33 H 24 Blood Pressure 136/87 130/63 Pulse Oximetry 98 97 95 01/30/18 01:00 01/30/18 01:16 01/30/18 01:30 Temperature Pulse Rate 110 H 110 H 111 H Respiratory Rate 19 23 22 Blood Pressure 139/65 147/70 H 153/83 H Pulse Oximetry 96 99 98 01/30/18 01:45 01/30/18 02:00 01/30/18 02:15 Temperature Pulse Rate 113 H 113 H 114 H Respiratory Rate 18 21 20 Blood Pressure 149/74 H 166/82 H 173/90 H Pulse Oximetry 97 98 98 01/30/18 02:30 01/30/18 02:45 01/30/18 03:00 Temperature Pulse Rate 113 H 112 H 112 H Respiratory Rate 17 22 18 Blood Pressure 167/81 H 155/76 H 157/76 H Pulse Oximetry 98 100 98 01/30/18 03:17 01/30/18 03:30 01/30/18 03:45 Temperature Pulse Rate 113 H 115 H 115 H Respiratory Rate 21 20 24 Blood Pressure 139/82 155/80 H 165/77 H Pulse Oximetry 98 97 98 01/30/18 04:00 01/30/18 04:15 01/30/18 04:31 Temperature 98.2 F Pulse Rate 115 H 113 H 117 H Respiratory Rate 20 21 27 H Blood Pressure 160/80 H 149/73 H 160/79 H Pulse Oximetry 98 98 98 01/30/18 04:45 01/30/18 05:00 01/30/18 05:15 Temperature Pulse Rate 115 H 114 H 113 H Respiratory Rate 27 H 22 29 H Blood Pressure 156/77 H 160/81 H 155/74 H Pulse Oximetry 98 98 98 01/30/18 05:30 10/08/18 05:45 01/30/18 06:00 Temperature Pulse Rate 113 H 114 H 111 H Respiratory Rate 25 H 24 18 Blood Pressure 159/74 H 154/71 H 162/74 H Pulse Oximetry 98 98 100 01/30/18 06:15 01/30/18 06:30 01/30/18 06:45 Temperature Pulse Rate 113 H 113 H 114 H Respiratory Rate 33 H 30 H 28 H Blood Pressure 168/80 H 160/82 H 152/77 H Pulse Oximetry 100 99 100 01/30/18 07:00 01/30/18 07:15 01/30/18 08:00 Temperature Pulse Rate 112 H 113 H 115 H Respiratory Rate 22 24 Blood Pressure 159/74 H 163/75 H Pulse Oximetry 100 100 100 01/30/18 09:30 01/30/18 09:45 01/30/18 10:00 Temperature Pulse Rate 118 H 114 H Respiratory Rate 27 H 22 Blood Pressure 141/82 H 159/87 H 163/93 H Pulse Oximetry 97 97 01/30/18 10:15 01/30/18 10:30 01/30/18 10:45 Temperature Pulse Rate 117 H 117 H 118 H Respiratory Rate 21 21 18 Blood Pressure 158/78 H 149/75 H 149/83 H Pulse Oximetry 97 97 96 01/30/18 11:00 01/30/18 11:15 01/30/18 11:30 Temperature Pulse Rate 119 H 118 H 119 H Respiratory Rate 26 H 22 21 Blood Pressure 148/76 H 146/72 H 154/82 H Pulse Oximetry 97 97 97 01/30/18 11:45 01/30/18 12:00 01/30/18 12:15 Temperature Pulse Rate 120 H 120 H 118 H Respiratory Rate 19 16 17 Blood Pressure 153/79 H 153/71 H 153/72 H Pulse Oximetry 96 97 97 01/30/18 12:30 01/30/18 12:45 01/30/18 13:00 Temperature Pulse Rate 118 H 117 H 119 H Respiratory Rate 18 16 19 Blood Pressure 146/67 H 148/73 H 155/74 H Pulse Oximetry 97 96 97 01/30/18 13:15 01/30/18 13:30 01/30/18 13:45 Temperature Pulse Rate 121 H 120 H 119 H Respiratory Rate 35 H 27 H 28 H Blood Pressure 147/74 H 147/75 H 156/76 H Pulse Oximetry 98 99 98 01/30/18 14:00 01/30/18 14:01 01/30/18 14:15 Temperature Pulse Rate 126 H 123 H 125 H Respiratory Rate 37 H 46 H 49 H Blood Pressure 141/78 H 148/88 H Pulse Oximetry 100 99 97 01/30/18 14:30 01/30/18 14:45 01/30/18 15:00 Temperature Pulse Rate 122 H 121 H 121 H Respiratory Rate 48 H 23 21 Blood Pressure 144/95 H 148/97 H 158/99 H Pulse Oximetry 97 96 98 01/30/18 15:16 01/30/18 15:30 Temperature Pulse Rate 122 H 122 H Respiratory Rate 17 19 Blood Pressure 174/91 H 163/74 H Pulse Oximetry 99 97 Intake & Output 01/29/18 01/30/18 01/30/18 18:59 06:59 18:59 Intake Total 800 / 800 275 / 275 800 / 800 Output Total 450 / 450 500 / 500 Balance 350 / 350 -225 / -225 800 / 800 Weight 62.5 kg Intake: IV 800 / 800 275 / 275 800 / 800 SandoSTATIN Inj 500 MCG In NS 500 / 500 650 / 650 Inj 500 ML @ 25 MCG/HR 25.02 mls/hr IV.CONT .Q20H1M MARGARETTE Rx#: [id number] Protonix Inj 80 MG In NS Inj 100 / 100 100 / 100 100 / 100 100 ML @ 10 mls/hr IV.CONT CONT MARGARETTE Rx#:[id number] Zosyn 3.375 GM Premix 50 ML @ 100 / 100 50 / 50 50 / 50 100 mls/hr IV.SIG Q6HR MARGARETTE Rx#: [id number] KCl 40 mEq Premix Inj 40 meq In 100 / 100 100 / 100 100 ml @ 25 mls/hr IV.SIG Q2H PRN Rx#:[id number] Output: Urine 450 / 450 500 / 500 Other: # Voids 1 3 Date of Last Bowel Movement 01/29/18 01/30/18 01/30/18 # Bowel Movements 2 1 Narrative: Please see my progress note from this morning. There have been no significant changes to exam. Results Procedures completed during hospitalization: RIJ central line placement (01/27) Paracentesis (01/28) Labs on day of discharge: Labs from last 24 hours 01/30/18 01/30/18 05:28 03:20 Potassium 3.6 D Ammonia 42 H Preliminary micro results at discharge 01/28/18 05:40 Body Fluid Culture - Preliminary Fluid - Peritoneal fluid No growth in 48 hours 01/27/18 19:15 Aerobic Blood Culture - Preliminary Blood - Peripheral No growth in 3 days Anaerobic Blood Culture - Preliminary No growth in 3 days 01/27/18 19:15 Aerobic Blood Culture - Preliminary Blood - Peripheral No growth in 3 days Anaerobic Blood Culture - Preliminary No growth in 3 days - Impressions ITS Impressions Abdomen Ultrasound 01/27/18 16:16 CONCLUSION: Moderate ascites. Head CT 01/27/18 16:16 CONCLUSION: No acute intracranial abnormality demonstrated. . Chest X-Ray 01/27/18 22:22 CONCLUSION: 1. Orogastric tube and right IJ line placement as above. 2. Mild parenchymal consolidation of the left base not significantly changed. Discharge Plan - Discharge Disposition Patient Disposition: 51 Hospice/Med Facility - Discharge Condition Condition: Critical - Discharge Order Discharge Orders: Discharge Order (Routine); Ordered 01/30/18 Ordered By: Brina Farias - Discharge Details Anticipated Discharge Date: 01/30/18 Discharge Comment: Hospice - Physicians Team Primary Care Provider: UNKNOWN, Attending Provider: Erin Vick Other Providers: Sami Willams MD ; Nakul Vigil MD
[2018-01-30 22:27] VITALS: BP 159/76; PULSE 129; RESP 20; TEMP 98.8
[2018-01-30 22:28] VITALS: O2SAT 95
[2018-01-31 12:24] LABS: Urea Creatinine ratio 25.9 mg/mg
== END 2018-01-30 22:45 | disposition hospice, inpatient (51) ==
LOC: NEPC 16:11 → NEDA 19:07 → HIMC 21:20
PROVIDERS: ADMIT Emergency Medicine; ATTEND Emergency Medicine